=== PATIENT | female | born 1955 | race Caucasian/White ===

== ENCOUNTER → 2016-05-13 | Outpatient (CLI) | payer BC ==
[~2016-05-13] MED LIST: BACLOFEN PUMP INTRAD; CALC500C70 PO; CLB/200 PO; CLONIDINE PUMP INTRAD; CLOP1TAB15 PO; CYAN100020 PO; DOCU-94 PO; DTRSR/2 PO; ESZO2TAB3 PO; OMEG10007 PO; PREG100C PO; PROB1TAB16 PO; VTMD1000 PO
== END | disposition home or self-care (01) ==
LOC: C.PAPS 11:49
PROVIDERS: ATTEND Obstetrics & Gynecology
DX: Z01.419 Encounter for gynecological examination (general) (routine) without abnormal findings (principal)

== ENCOUNTER → 2016-05-15 | Outpatient (CLI) | payer BC ==
--- NOTE | 2016-05-15 13:42 | DIAGNOSTIC IMAGING REPORT ---
MRI OF THE LUMBAR SPINE WITHOUT IV CONTRAST CLINICAL HISTORY: Degenerative disc disease. Chronic low back pain. COMPARISON STUDY: MRI of the lumbar spine dated 10/12/2015. TECHNIQUE: MRI of the lumbar spine is performed utilizing various T1 and T2-weighted sequences in the axial and sagittal planes. IV contrast was not administered for this examination. The examination is modestly degraded by motion artifact as well as by lumbar dextrocurvature. FINDINGS: Lumbar spine: Vertebral body height is maintained throughout the lumbar spine. There is minimal anterolisthesis at L3-L4. Alignment is otherwise preserved. There is moderate lumbar dextrocurvature. Anterior osteophytes are seen throughout. There is straightening of the lumbar lordosis. The transverse and spinous processes are grossly intact. There is no evidence of spondylolysis. A hemangioma is suspected in the bodies of L4 and L5. Chronic endplate change is seen from L2 through L5. Significant endplate edema is identified at L3-L4 and L4-L5. Schmorl's nodes are noted in L4 and L5. Findings suggest previous right hemilaminectomy at L5. Intervertebral discs: There is degenerative disc desiccation and loss of height seen throughout the lumbar spine. This is severe at L2-L3, L3-L4, and L4-L5. Spinal cord: The visualized spinal cord is normal in morphology and signal intensity. The conus medullaris terminates at the level of L1. The nerve roots of the cauda equina are normal in morphology. L1-L2: There is minimal posterior disc bulge. In conjunction with hypertrophy of the ligamentum flavum and lipomatosis of epidural space, there is mild central canal stenosis with a minimum AP diameter of 6.5 mm. The neural foramina are patent. Facet arthropathy is of no consequence. L2-L3: There is minimal posterior disc bulge with annular fissure. The central canal appears clear. Facet arthropathy is of no consequence. The neural foramina are patent. L3-L4: There is a disc herniation slightly eccentric to the left with a superiorly extruded fragment which measures 1.5 cm. In conjunction with hypertrophy of the ligamentum flavum, this causes severe central canal stenosis with a minimum AP diameter of 4 mm. There is mild right and severe left-sided subarticular stenosis. This likely impinges on the exiting left L3 and the transiting left L4 nerve roots. Facet arthropathy is of no consequence. L4-L5: There is broad-based posterior disc bulge eccentric to the right. In conjunction with hypertrophy of the ligamentum flavum, this causes [id number] central canal stenosis with a minimum AP diameter of 6.5 mm. There is severe right and moderate left-sided subarticular stenosis. This impinges on the exiting right L4 and transiting right L5 nerve roots. Facet arthropathy and marginal osteophyte formation causes severe right neural foraminal stenosis. The left neural foramen appears clear. L5-S1: The central canal is clear. Facet arthropathy causes mild neural foraminal stenosis. Sacrum: Visualized sacrum is normal in morphology and signal intensity. Soft tissues: There is mild fatty atrophy of the paraspinous musculature. The visualized retroperitoneal structures are grossly unremarkable but incompletely assessed. The bladder wall appears trabeculated. IMPRESSION: 1. Advanced degenerative disc disease with significant degenerative endplate sclerosis seen at L3-L4 and L4-L5. 2. There is a disc herniation at L3-L4 with a large superiorly extruded fragment. Severe central canal stenosis is seen at this level. 3. There is pnmwinun-kq-qqlrua central canal stenosis at L4-L5. See discussion for detailed vabhm-yz-wmatr analysis. 4. Spinal scoliosis. Dictated: 05/15/2016 12:56 PM Transcribed: 05/15/2016 1:42 PM Vicky Electronically signed by: Destin Rodriguez M.D. 05/15/2016 2:00 PM Dictated Date/Time: 05/15/2016 12:56 PM
== END | disposition home or self-care (01) ==
LOC: C.MRIBC 10:53
PROVIDERS: ATTEND Orthopaedic Surgery
DX: M51.36 Other intervertebral disc degeneration, lumbar region (principal); M51.26 Other intervertebral disc displacement, lumbar region; M48.06 Spinal stenosis, lumbar region

== ENCOUNTER → 2016-07-08 | Outpatient (CLI) | payer BC ==
[~2016-07-08] MED LIST changes: +CALC-393 PO; +CELE100C PO; +CHOL100010 PO; +CYAN10005 PO; +DONE10TA12 PO
--- NOTE | 2016-07-08 16:55 | ECHOCARDIOGRAM REPORT ---
*NOTICE TO RECEIVING REPUBLICAN AGENCY This information is strictly Confidential and protected under [place] law. [place] law prohibits you from making any further disclosure of this information unless further disclosure is expressly permitted by the written consent of the person to whom it pertains or is authorized by law. A general authorization for the release of medical or other information is not sufficient for this purpose. Hospital accepts no responsibility if the information is made available to any other person, INCLUDING THE PATIENT. Interpretation Summary * Name: COCO HOLLY Study Date: 07/08/2016 12:59 PM BP: 142/88 mmHg * Patient Location: [facility] HR: 76 * : 1955 (M/d/yyyy) Gender: Female Height: 65 in * Age: 60 yrs Ethnicity: [place] Weight: 128 lb * Ordering Physician: Aaron Bowers * Referring Physician: Aaron Bowers * Performed By: Anna Baxter RDCS * * Reason For Study: CHF * BSA: 1.6 m2 * -- Conclusions -- * Left ventricular systolic function is normal. * No regional wall motion abnormalities noted. * Ejection Fraction = 60-65%. * Grade I diastolic dysfunction, (abnormal relaxation pattern). * No significant valvular pathology. Procedure Details * A complete two-dimensional transthoracic echocardiogram was performed (2D, M-mode, Doppler and color flow Doppler). Left Ventricle * The left ventricle is normal in size. * There is normal left ventricular wall thickness. * Ejection Fraction = 60-65%. * Left ventricular systolic function is normal. * No regional wall motion abnormalities noted. Right Ventricle * The right ventricle is grossly normal size. * The right ventricular systolic function is normal as assessed by tricuspid annular plane systolic excursion (TAPSE) (normal >1.5 cm). Atria * The left atrial size is normal. * Right atrial size is normal. * No ASD detected; PFO is not assessed. Mitral Valve * The mitral valve anatomy is normal. * There is no mitral valve stenosis. * Significant mitral regurgitation is absent. Tricuspid Valve * The tricuspid valve is not well visualized, but is grossly normal. * There is no tricuspid stenosis. * Significant tricuspid regurgitation is absent. Aortic Valve * The aortic valve is normal in structure and function. * No hemodynamically significant valvular aortic stenosis. * Trace aortic regurgitation. Pulmonic Valve * The pulmonary valve is not well seen, but the Doppler examination is normal without significant regurgitation or stenosis. Great Vessels * The aortic root and proximal ascending aorta are normal sized. * The pulmonary artery is not well visualized, but is probably normal size. Pericardium/Pleural * There is no pericardial effusion. Great Vessels * Normal inferior vena cava size and collapsability with sniff indicates a normal right atrial pressure of 3 mmHg Left Ventricular Diastolic Function * Grade I diastolic dysfunction, (abnormal relaxation pattern). MMode 2D Measurements and Calculations IVSd 1.2 cm IVSs 1.5 cm LVIDd 3.6 cm LVIDs 2.3 cm LVPWd 1.1 cm LVPWs 1.4 cm IVS/LVPW 1.1 FS 35.4 % EDV(Teich) 54.7 ml ESV(Teich) 18.7 ml EF(Teich) 65.8 % EDV(cubed) 47.0 ml ESV(cubed) 12.7 ml EF(cubed) 73.1 % % IVS thick 24.0 % % LVPW thick 28.6 % LV mass(C)d 132.8 grams LV mass(C)dI 81.1 grams/m\S\2 LV mass(C)s 108.9 grams LV mass(C)sI 66.6 grams/m\S\2 SV(Teich) 36.0 ml SI(Teich) 22.0 ml/m\S\2 SV(cubed) 34.3 ml SI(cubed) 21.0 ml/m\S\2 Ao root diam 3.1 cm Ao root area 7.6 cm\S\2 LA dimension 3.0 cm LA/Ao 0.97 LVAd ap4 25.5 cm\S\2 LVLd ap4 7.5 cm EDV(MOD-sp4) 72.4 ml LVAs ap4 13.7 cm\S\2 LVLs ap4 6.1 cm ESV(MOD-sp4) 26.5 ml EF(MOD-sp4) 63.4 % LVAd ap2 23.8 cm\S\2 LVLd ap2 7.3 cm EDV(MOD-sp2) 66.1 ml LVAs ap2 15.1 cm\S\2 LVLs ap2 6.5 cm ESV(MOD-sp2) 31.1 ml EF(MOD-sp2) 53.0 % SV(MOD-sp4) 45.9 ml SI(MOD-sp4) 28.0 ml/m\S\2 SV(MOD-sp2) 35.0 ml SI(MOD-sp2) 21.4 ml/m\S\2 Doppler Measurements and Calculations MV E max markel 81.5 cm/sec MV A max markel 102.8 cm/sec MV E/A 0.79 MV dec time 0.21 sec Ao V2 max 138.7 cm/sec Ao max PG 7.7 mmHg Ao max PG (full) 3.7 mmHg AI max markel 415.3 cm/sec AI max PG 69.0 mmHg AI dec slope 243.0 cm/sec\S\2 AI P1/2t 500.5 msec LV V1 max PG 4.0 mmHg LV V1 max 99.9 cm/sec
== END | disposition home or self-care (01) ==
LOC: C.CPL 12:51
PROVIDERS: ATTEND Family Medicine
DX: I50.9 Heart failure, unspecified (principal)

== ENCOUNTER → 2016-08-20 | Outpatient (CLI) | payer BC ==
[~2016-08-20] MED LIST changes: -CALC500C70 PO; -CLB/200 PO; -CYAN100020 PO; -ESZO2TAB3 PO; -OMEG10007 PO; -PROB1TAB16 PO; -VTMD1000 PO
== END | disposition home or self-care (01) ==
LOC: C.LABSPEC 08-19 10:52
PROVIDERS: ATTEND Family Medicine
DX: N39.0 Urinary tract infection, site not specified (principal)

== ENCOUNTER → 2016-09-25 | Outpatient (CLI) | payer BC ==
[~2016-09-25] MED LIST changes: -CALC-393 PO; -CELE100C PO; -CHOL100010 PO; -CYAN10005 PO; -DONE10TA12 PO
--- NOTE | 2016-09-26 12:19 | MAMMOGRAPHY REPORT ---
BILATERAL DIGITAL SCREENING MAMMOGRAM WITH CAD: 09/25/2016 CLINICAL HISTORY: Routine screening. Patient has no complaints. TECHNIQUE: Bilateral CC and MLO views were obtained. Current study was also evaluated with a Compute r Aided Detection (CAD) system. COMPARISON: Comparison is made to exams dated: 08/20/2015 mammogram, 08/16/2014 mammogram, 08/15/2013 ma mmogram, 08/12/2012 mammogram, 08/11/2011 mammogram, and 08/06/2010 mammogram - [facility] er. BREAST COMPOSITION: There are scattered areas of fibroglandular density in both breasts. FINDINGS: The right MLO view is suboptimal due to inability of the patient to adequately move and pos ition her right arm. An asymmetry in the lateral left breast appears similar to the 2015 and 2010 ma mmograms, suggesting benignity. No new suspicious mass, architectural distortion or cluster of micro calcifications is seen. IMPRESSION: ACR BI-RADS CATEGORY 1: NEGATIVE There is no mammographic evidence of malignancy. A 1 year screening mammogram is recommended. The pa tient will receive written notification of the results. Approximately 10% of breast cancers are not detected with mammography. A negative mammographic report should not delay biopsy if a clinically suggestive mass is present. Belén Brown M.D. ay/:09/25/2016 15:57:05 Motor Checker: La CALHOUN(R)(M), [facility] letter sent: Normal 1/2 BI-RADS Code: ACR BI-RADS Category 1: Negative
== END | disposition home or self-care (01) ==
LOC: C.MAMM 11:45
PROVIDERS: ATTEND Obstetrics & Gynecology
DX: Z12.31 Encounter for screening mammogram for malignant neoplasm of breast (principal)

== ENCOUNTER → 2016-10-10 | Outpatient (CLI) | payer BC ==
--- NOTE | 2016-10-10 12:24 | DIAGNOSTIC IMAGING REPORT ---
CHEST 2 VIEWS ROUTINE CLINICAL HISTORY: CLAVICLE Pain, r/o FX OF RT CLAVICLE COMPARISON STUDY: 10/30/2015 FINDINGS: Deformity distal right clavicle similar compared to the prior study. Several old right rib fractures. Lungs are considered clear. There are several calcified mediastinal and hilar nodes. IMPRESSION: No acute process. Chronic change. The above report was generated using voice recognition software. It may contain grammatical, syntax or spelling errors. Electronically signed by: Danielito Mosher M.D. 10/10/2016 12:22 PM Dictated Date/Time: 10/10/2016 12:21 PM
--- NOTE | 2016-10-10 12:27 | DIAGNOSTIC IMAGING REPORT ---
LEFT CLAVICLE 2 VIEWS CLINICAL HISTORY: Fall. Left clavicular pain. FINDINGS: 2 views of left clavicle are obtained. No prior studies are available for comparison at the time of dictation. The skeletal structures are osteopenic. No left clavicular fracture is seen. Mild productive change is seen at the acromioclavicular joint. The sternoclavicular joint appears preserved. The glenohumeral articulation is normal as imaged. The overlying soft tissues are within normal limits. Imaged left upper lobe lung parenchyma appears clear. There is atherosclerotic calcification of the thoracic aorta. IMPRESSION: There is no radiographic evidence of left clavicular fracture. Electronically signed by: Destin Rodriguez M.D. 10/10/2016 12:25 PM Dictated Date/Time: 10/10/2016 12:24 PM
--- NOTE | 2016-10-10 12:27 | DIAGNOSTIC IMAGING REPORT ---
RIGHT CLAVICLE CLINICAL HISTORY: 61 years-old Female presenting with CLAVICLE PAIN,R/O FX OF RT CLAVICLE Right. TECHNIQUE: Frontal and oblique views of the right clavicle were obtained. COMPARISON: 10/30/2015. FINDINGS: Interval healing of the displaced distal right clavicle fracture with osseous bridging. Osteopenia noted. No new fracture. Congruency of the acromioclavicular joint is not well assessed. Limited visualization of the thorax remarkable for atherosclerosis of aortic arch. Deformity of the right lateral fourth rib suggest chronic rib fracture, unchanged. IMPRESSION: Interval healing of the displaced distal right clavicle fracture. No convincing evidence of acute osseous injury. Acromioclavicular joint not well assessed. Osteopenia. Electronically signed by: Jenaro Leroy M.D. 10/10/2016 12:26 PM Dictated Date/Time: 10/10/2016 12:23 PM
--- NOTE | 2016-10-10 15:48 | DIAGNOSTIC IMAGING REPORT ---
RIGHT SHOULDER MIN 2 VIEWS ROUTINE CLINICAL HISTORY: RIGHT SHOULDER PAIN Right pain COMPARISON: None. DISCUSSION: Partial anterior subluxation right shoulder. Osteoporosis. Deformity distal clavicle possibly secondary to old trauma. Old fractures of several upper right ribs. Upper right lung is clear. There is no evidence for soft tissue swelling. IMPRESSION: Considerable degenerative change. Osteoporosis. Partial anterior subluxation of the right humeral head in relation to the glenoid. Deformity distal clavicle as well as several upper right ribs presumably secondary to old trauma. The above report was generated using voice recognition software. It may contain grammatical, syntax or spelling errors. Electronically signed by: Danielito Mosher M.D. 10/10/2016 3:47 PM Dictated Date/Time: 10/10/2016 3:45 PM
== END | disposition home or self-care (01) ==
LOC: C.RADBC 11:32
PROVIDERS: ATTEND Family Medicine
DX: M25.511 Pain in right shoulder (principal); M81.0 Age-related osteoporosis without current pathological fracture; S42.001A Fracture of unspecified part of right clavicle, initial encounter for closed fracture; W19.XXXA Unspecified fall, initial encounter

== ENCOUNTER → 2017-02-02 | Day surgery (SDC) | payer BC ==
[2016-12-23 10:46] VITALS: Ht 166.4 cm; Wt 59.1 kg
[~2017-02-02] VITALS: Ht 166.4 cm; Wt 59.1 kg
[~2017-02-02] MED LIST changes: +CALC-393 PO; +CELE100C PO; +CHOL100010 PO; +CYAN10005 PO; -DOCU-94 PO; +DONE10TA12 PO; +LIDOCAINE HCL 2% 2 ML VIAL (20MG/ML) ONE; +MIDAZOLAM HCL 1 MG/ML 2ML VIAL ONE; +PROPOFOL IV EMULSION 10 MG/ML 20 ML VIAL IV ONE
--- NOTE | 2017-02-02 09:28 | Endo History and Physical ---
History & Physical Date of Service: Feb 02, 2017. Chief Complaint: Screening Referring Physician: Dr. Monica Knapp History of Present Illness 61 yo CF who presents for screening colonoscopy. Past Medical History Hypertension, CVA/TIA Past Surgical History Hx Cardiac Surgery: No Hx Internal Defibrillator: No Hx Pacemaker: No Hx Abdominal Surgery: Yes (PUMP INSERTION AND REPLACEMENTS (Q7 YEARS)) Hx of Implantable Prosthesis: No Hx Post-Op Nausea and Vomiting: No Hx Cancer Surgery: No Hx Thoracic Surgery: No Hx Orthopedic: Yes (BACK SURGERY) Hx Urinary Tract Surgery: No Family History Esophogeal [place] Social History Smoking Status: Never Smoker Hx Substance Use: No Hx Alcohol Use: No Allergies Coded Allergies: Cephalexin (Verified Allergy, Unknown, ANAPHYLAXIS, 12/23/16) Penicillins (Verified Adverse Reaction, Mild, nausea, 12/23/16) Current Medications Reported Home Medications Medications Dose Route/Sig Max Daily Dose Days Date Category Calcium (Calcium Carbonate) 600 Mg Tab 1 Tab PO QAM 12/23/16 Reported Vitamin B-12 (Cyanocobalamin) 1,000 Mcg Tab 1,000 Mcg PO QAM 12/23/16 Reported Vitamin D (Cholecalciferol) 1,000 Unit Tab 1 Tab PO QAM 12/23/16 Reported Celebrex (Celecoxib) 100 Mg Cap 100 Mg PO QAM 12/23/16 Reported Aricept (Donepezil Hydrochloride) 10 Mg Tab 10 Mg PO QPM 12/23/16 Reported Detrol LA (Tolterodine Tartrate) 2 Mg Capcr 1 Cap PO QPM 05/15/16 Reported [Clonidine Pump] 14.48 Mcg INTRAD UD 10/17/15 Reported [Baclofen Pump] 144.8 Mcg INTRAD UD 03/17/15 Reported Lyrica (Pregabalin) 100 Mg Cap 100 Mg PO QID 05/10/11 Reported Plavix (Clopidogrel Bisulfate) 75 Mg Tab 75 Mg PO QPM 06/01/06 Reported Vital Signs Weight (Kilograms): 59.09 Height (Feet): 5 Height (Inches): 5.5 Date Time Temp Pulse Resp B/P (MAP) Pulse Ox O2 Delivery O2 Flow Rate FiO2 02/02/17 09:01 37.1 76 20 139/78 (98) 97 Room Air Physical Exam General Appearance: WD/WN, no apparent distress Respiratory/Chest: Auscultation: breath sounds normal Cardiovascular: Heart Auscultation: RRR Abdomen: Bowel Sounds: normal Inspection & Palpation: soft, non-distended, no tenderness, guarding & rebound Assessment and Plan Assessment: 61 yo CF who presents for screening colonoscopy. Plan: Proceed with colonoscopy.
--- NOTE | 2017-02-02 10:00 | GI REPORT ---
Procedure Date: 02/02/2017 9:36 AM Procedure: Colonoscopy Indications: Screening for colorectal malignant neoplasm Medicines: Monitored Anesthesia Care Complications: No immediate complications. Estimated Blood Loss: Estimated blood loss: none. Procedure: Pre-Anesthesia Assessment: - Prior to the procedure, a History and Physical was performed, and patient medications and allergies were reviewed. The patient's tolerance of previous anesthesia was also reviewed. The risks and benefits of the procedure and the sedation options and risks were discussed with the patient. All questions were answered, and informed consent was obtained. Prior Anticoagulants: The patient has taken Plavix (clopidogrel), last dose was 10 days prior to procedure. ASA Grade Assessment: III - A patient with severe systemic disease. After reviewing the risks and benefits, the patient was deemed in satisfactory condition to undergo the procedure. After I obtained informed consent, the scope was passed under direct vision. Throughout the procedure, the patient's blood pressure, pulse, and oxygen saturations were monitored continuously. The On-site loaner was introduced through the anus and advanced to the terminal ileum. The colonoscopy was performed without difficulty. The patient tolerated the procedure well. The quality of the bowel preparation was good. The terminal ileum, ileocecal valve, appendiceal orifice, and rectum were photographed. Findings: A 5 mm polyp was found in the ascending colon. The polyp was sessile. The polyp was removed with a hot snare. Resection and retrieval were complete. Multiple small-mouthed diverticula were found in the sigmoid colon. Non-bleeding internal hemorrhoids were found during retroflexion. The hemorrhoids were small. Impression: - One 5 mm polyp in the ascending colon, removed with a hot snare. Resected and retrieved. - Diverticulosis in the sigmoid colon. - Non-bleeding internal hemorrhoids. Recommendation: - Resume previous diet. - Continue present medications. - Repeat colonoscopy for surveillance based on pathology results. - Return to primary care physician as previously scheduled. Joel Motta, DO 02/02/2017 9:59:30 AM This report has been signed electronically. Note Initiated On: 02/02/2017 9:36 AM I attest to the content of the Intraoperative Record and orders documented therein, exceptions below
--- NOTE | 2017-02-02 10:00 | Discharge Instructions ---
Endoscopy Patient Instructions Date / Procedure(s) Performed Feb 02, 2017. Colonoscopy Allergy Information Coded Allergies: Cephalexin (Verified Allergy, Unknown, ANAPHYLAXIS, 12/23/16) Penicillins (Verified Adverse Reaction, Mild, nausea, 12/23/16) Discharge Date / Findings Feb 02, 2017. Colon polyp Diverticulosis Internal hemorrhoids Medication Instructions Stopped Medication(s): Patient stopped plavix 10 days ago. OK to resume all medications today as prescribed Reported Home Medications Medications Dose Route/Sig Max Daily Dose Days Date Category Calcium (Calcium Carbonate) 600 Mg Tab 1 Tab PO QAM 12/23/16 Reported Vitamin B-12 (Cyanocobalamin) 1,000 Mcg Tab 1,000 Mcg PO QAM 12/23/16 Reported Vitamin D (Cholecalciferol) 1,000 Unit Tab 1 Tab PO QAM 12/23/16 Reported Celebrex (Celecoxib) 100 Mg Cap 100 Mg PO QAM 12/23/16 Reported Aricept (Donepezil Hydrochloride) 10 Mg Tab 10 Mg PO QPM 12/23/16 Reported Detrol LA (Tolterodine Tartrate) 2 Mg Capcr 1 Cap PO QPM 05/15/16 Reported [Clonidine Pump] 14.48 Mcg INTRAD UD 10/17/15 Reported [Baclofen Pump] 144.8 Mcg INTRAD UD 03/17/15 Reported Lyrica (Pregabalin) 100 Mg Cap 100 Mg PO QID 05/10/11 Reported Plavix (Clopidogrel Bisulfate) 75 Mg Tab 75 Mg PO QPM 06/01/06 Reported Provider Instructions Activity Restrictions - No exercising or heavy lifting for 24 hours. - Do not drink alcohol the day of the procedure. - Do not drive a car or operate machinery until the day after the procedure. - Do not make any important decisions or sign important papers in 24 hours after the procedure. Following Day: - Return to full activity which may include returning to work/school. Diet Start your diet with liquids and light foods (jello, soup, juice, toast). Then eat your usual diet if not nauseated. Treatment For Common After Affects For mild abdominal pain, bloating, or excessive gas: - Rest - Eat lightly - Lie on right side Follow-Up Information Follow-up with Dr. Monica Knapp as scheduled Anesthesia Information What You Should Know You have had a procedure that required some medicine to reduce anxiety and discomfort. This treatment is called moderate sedation. After receiving the treatment, you may be sleepy, but you will be able to breathe on your own. The effects of the treatment may last for several hours. Follow these instructions along with Activity/Diet recommendations noted above: * Do NOT do anything where dizziness or clumsiness would be dangerous. * Rest quietly at home today, then you can be up and about tomorrow. * Have a responsible person stay with you the rest of today. * You may have had an I.V. today. If so, you may take the dressing off later today. Recommendations Call your doctor if: * Trouble breathing * Continuous vomiting for more than 24 hours * Temperature above 101 degrees * Severe abdominal pain or bloating * Pain not relieved by pain medicine ordered * There is increased drainage or redness from any incision * A large amount of rectal bleeding greater than 2-3 tablespoons. (If you had a polyp/s removed or have hemorrhoids, a small amount of blood - from the rectum is to be expected.) * You have any unanswered questions or concerns. IN THE EVENT OF A SERIOUS EMERGENCY, GO TO THE NEAREST EMERGENCY ROOM Your discharge instructions were prepared by provider Joel Motta. Patient Instructions Signature Page Denise Tamayo Patient (or Guardian) Signature/Date: I have read and understand the instructions given to me by my caregivers. Caregiver/RN/Doctor Signature/Date: The above-named patient and/or guardian has received patient instructions on this date. + Original Patient Signature Page (only) stays with chart. Please make copy for patient.
--- NOTE | 2017-02-02 10:17 | Anesthesiology Progress Note ---
Anesthesia Post Op Note Date & Time Feb 02, 2017 at 10:17 Vital Signs Pain Intensity: 0 Vital Signs Past 12 Hours Date Time Temp Pulse Resp B/P (MAP) Pulse Ox O2 Delivery O2 Flow Rate FiO2 02/02/17 10:00 67 12 122/72 (89) 97 Room Air 02/02/17 09:01 37.1 76 20 139/78 (98) 97 Room Air Notes Mental Status: alert / awake / arousable, participated in evaluation Pt Amnestic to Procedure: Yes Nausea / Vomiting: adequately controlled Pain: adequately controlled Airway Patency, RR, SpO2: stable & adequate BP & HR: stable & adequate Hydration State: stable & adequate Anesthetic Complications: no major complications apparent
[2017-02-02 10:35] VITALS: BP 147/82; PULSE 73; O2SAT 100
== END | disposition home or self-care (01) ==
LOC: C.GI 08:31
PROVIDERS: ATTEND Internal Medicine
DX: Z12.11 Encounter for screening for malignant neoplasm of colon (principal); D12.2 Benign neoplasm of ascending colon; K57.30 Diverticulosis of large intestine without perforation or abscess without bleeding; K64.8 Other hemorrhoids; I10 Essential (primary) hypertension; Z86.73 Personal history of transient ischemic attack (TIA), and cerebral infarction without residual deficits; Z80.0 Family history of malignant neoplasm of digestive organs; Z79.02 Long term (current) use of antithrombotics/antiplatelets; Z79.899 Other long term (current) drug therapy

== ENCOUNTER → 2017-05-18 | Outpatient (CLI) | payer BC ==
[~2017-05-18] MED LIST changes: -CALC-393 PO; -LIDOCAINE HCL 2% 2 ML VIAL (20MG/ML) ONE; -MIDAZOLAM HCL 1 MG/ML 2ML VIAL ONE; +OMEG10007 PO; -PROPOFOL IV EMULSION 10 MG/ML 20 ML VIAL IV ONE
== END | disposition home or self-care (01) ==
LOC: C.PAPS 12:33
PROVIDERS: ATTEND Obstetrics & Gynecology
DX: N95.8 Other specified menopausal and perimenopausal disorders (principal)

== ENCOUNTER → 2017-05-19 | Outpatient (CLI) | payer BC ==
[2017-05-19 17:02] LABS: BASO % 0.7 %; BASO ABS # 0.04 K/uL (0-0.2); EOS % 3.1 %; EOS ABS # 0.18 K/uL (0-0.5); HEMATOCRIT 38.1 % (37-47); HEMOGLOBIN 13.2 g/dL (12.0-16.0); LYMPH % 39.3 %; LYMPH ABS # 2.28 K/uL (1.2-3.4); MEAN CELL VOLUME 86.6 fL (80-100); MEAN CORPUSCULAR HGB CONC 34.6 g/dl (32-36); MEAN PLATELET VOLUME 10.2 fL (7.4-10.4); MONO % 12.2 %; MONO ABS # 0.71 K/uL (0.11-0.59); NEUT % 44.7 %; NEUT ABS # 2.59 K/uL (1.4-6.5); PLATELET COUNT 391 K/uL (130-400); RED CELL DISTRIBUTION WIDTH SD 44.2 fL (36.4-46.3)
[2017-05-19 17:27] LABS: ALBUMIN 4.1 gm/dl (3.4-5.0); ALT/SGPT 28 U/L (12-78); AST/SGOT 22 U/L (15-37); BLOOD UREA NITROGEN 10 mg/dl (7-18); CALCIUM 8.9 mg/dl (8.5-10.1); CARBON DIOXIDE 27 mmol/L (21-32); CHOLESTEROL 217 mg/dl (0-200); CREATININE 0.62 mg/dl (0.60-1.20); GLUCOSE 81 mg/dl (70-99); POTASSIUM 3.7 mmol/L (3.5-5.1); SODIUM 129 mmol/L (136-145); URIC ACID 4.4 mg/dl (2.6-7.2)
[2017-05-19 17:36] LABS: ALKALINE PHOSPHATASE 79 U/L (45-117); LDL CHOLESTEROL CALCULATED 98 mg/dl; TRANSFERRIN 298 mg/dl (200-360)
[2017-05-20 06:08] LABS: HEMOGLOBIN A1C 5.5 % (4.5-5.6)
== END | disposition home or self-care (01) ==
LOC: C.LABBC 15:18
PROVIDERS: ATTEND Family Medicine
DX: R73.09 Other abnormal glucose (principal); E55.9 Vitamin D deficiency, unspecified; D51.9 Vitamin B12 deficiency anemia, unspecified; E78.9 Disorder of lipoprotein metabolism, unspecified; R53.83 Other fatigue

== ENCOUNTER → 2017-05-27 | Outpatient (CLI) | payer BC ==
--- NOTE | 2017-05-27 10:31 | DIAGNOSTIC IMAGING REPORT ---
ULTRASOUND OF THE CAROTID ARTERIES CLINICAL HISTORY: CAROTID ARTERY DISEASE COMPARISON STUDY: 08/06/2012 TECHNIQUE: Real-time, grayscale, and color Doppler sonography of the carotid arteries was performed. Imaging reviewed in the transverse and longitudinal planes. NASCET criteria was utilized for stenosis calcification. FINDINGS: There is mild atherosclerotic plaque present on the right. The left internal carotid artery appears occluded. This finding was present on the preceding study. The peak systolic velocity within the right internal carotid artery is 73 cm/sec. The systolic velocity ratio of right internal to common carotid artery is 1.4. The peak systolic velocity within the left internal carotid artery is 0 cm/sec. The systolic velocity ratio left internal to common carotid artery is 0. Antegrade flow is seen in the vertebral arteries. The external carotid arteries are patent. Blood pressure in the right arm measured 137 mm/Hg. Blood pressure in the left arm measured 137 mm/Hg. IMPRESSION: 1. Occluded left internal carotid artery 2. No evidence of hemodynamically significant right internal carotid artery stenosis Electronically signed by: Guzman Smith M.D. 05/27/2017 10:30 AM Dictated Date/Time: 05/27/2017 10:28 AM
== END | disposition home or self-care (01) ==
LOC: C.ULTRBC 09:32
PROVIDERS: ATTEND Family Medicine
DX: I65.23 Occlusion and stenosis of bilateral carotid arteries (principal)

== ENCOUNTER → 2017-09-28 | Outpatient (CLI) | payer BC ==
--- NOTE | 2017-09-29 07:32 | MAMMOGRAPHY REPORT ---
BILATERAL DIGITAL SCREENING MAMMOGRAM WITH CAD: 09/28/2017 CLINICAL HISTORY: Routine screening. Patient has no complaints. TECHNIQUE: The study was acquired using full field digital technology and interpreted from soft copy. Current study was also evaluated with a Computer Aided Detection (CAD) system. COMPARISON: Comparison is made to exams dated: 09/25/2016 mammogram, 08/20/2015 mammogram, 08/16/2014 m ammogram, 08/15/2013 mammogram, 08/12/2012 mammogram, and 08/11/2011 mammogram - [facility] er. BREAST COMPOSITION: There are scattered areas of fibroglandular density in both breasts. FINDINGS: The exam is suboptimal due to inability of the patient to adequately position for the exam given prior stroke, despite assistance from 2 cardiopulmonary technologist during the exam. Within this limitation, no new suspicious mass, architectural distortion or cluster of microcalcifications is see n. IMPRESSION: ACR BI-RADS CATEGORY 1: NEGATIVE There is no mammographic evidence of malignancy, within the limitations of the exam. A 1 year screeni ng mammogram is recommended.(09/29/2018) The patient will receive written notification of the result s. Some breast cancers are not detected with mammography. A negative mammographic report should not zeus y biopsy if a clinically suggestive mass is present. Belén Brown M.D. ay/:09/28/2017 12:41:26 Export Sales Manager: RT Chaparro(Sherron)(Elvira)(BD), [facility] letter sent: Normal 1/2 BI-RADS Code: ACR BI-RADS Category 1: Negative
== END | disposition home or self-care (01) ==
LOC: C.MAMM 12:09
PROVIDERS: ATTEND Obstetrics & Gynecology
DX: Z12.31 Encounter for screening mammogram for malignant neoplasm of breast (principal)

== ENCOUNTER → 2017-10-12 | Outpatient (CLI) | payer BC ==
[2017-10-12 17:06] LABS: BASO % 0.8 %; BASO ABS # 0.04 K/uL (0-0.2); HEMATOCRIT 38.1 % (37-47); HEMOGLOBIN 12.8 g/dL (12.0-16.0); IG# 0.01 K/uL (0.00-0.02); LYMPH % 40.3 %; MEAN CELL VOLUME 90.7 fL (80-100); MEAN CORPUSCULAR HEMOGLOBIN 30.5 pg (25-34); MEAN CORPUSCULAR HGB CONC 33.6 g/dl (32-36); MONO % 14.9 %; MONO ABS # 0.74 K/uL (0.11-0.59); NEUT % 39.8 %; NEUT ABS # 1.97 K/uL (1.4-6.5); PLATELET COUNT 352 K/uL (130-400); RED CELL DISTRIBUTION WIDTH CV 13.2 % (11.5-14.5); RED CELL DISTRIBUTION WIDTH SD 43.6 fL (36.4-46.3); WHITE BLOOD COUNT 4.96 K/uL (4.8-10.8)
[2017-10-12 17:29] LABS: ALBUMIN 3.7 gm/dl (3.4-5.0); ALKALINE PHOSPHATASE 77 U/L (45-117); ALT/SGPT 28 U/L (12-78); AST/SGOT 24 U/L (15-37); BLOOD UREA NITROGEN 10 mg/dl (7-18); CALCIUM 8.8 mg/dl (8.5-10.1); CARBON DIOXIDE 27 mmol/L (21-32); CHOLESTEROL 171 mg/dl (0-200); CREATININE 0.56 mg/dl (0.60-1.20); GLUCOSE 76 mg/dl (70-99); LDL CHOLESTEROL CALCULATED 70 mg/dl; POTASSIUM 4.1 mmol/L (3.5-5.1); SODIUM 132 mmol/L (136-145); TOTAL PROTEIN 6.7 gm/dl (6.4-8.2); TRANSFERRIN 272 mg/dl (200-360); URIC ACID 4.6 mg/dl (2.6-7.2)
[2017-10-13 06:19] LABS: HEMOGLOBIN A1C 5.5 % (4.5-5.6)
== END | disposition home or self-care (01) ==
LOC: C.LABBC 12:57
PROVIDERS: ATTEND Family Medicine
DX: R73.09 Other abnormal glucose (principal); E55.9 Vitamin D deficiency, unspecified; D51.9 Vitamin B12 deficiency anemia, unspecified; E78.9 Disorder of lipoprotein metabolism, unspecified; R53.83 Other fatigue

== ENCOUNTER 2021-08-04 10:47 | Inpatient (IN) ==
[2021-08-04] MEDS ORDERED: MoRPHine SULFATE 2 MG/ML CARP IV PRN ×2 (10:59→16:12)
[2021-08-04] MEDS ORDERED: MoRPHine SULFATE 4 MG/ML 1 ML CARP\\VIAL IV PRN (10:59)
--- NOTE | 2021-08-04 11:02 | Emergency Department Note ---
Impression & Plan Closed femur fracture, Fall, Acute hypokalemia, Acute hyponatremia ED Provider Note NAME: COCO HOLLY AGE: 65 SEX: F : 1955 ARRIVES VIA: Ambulance INFORMANT: Patient ED PROVIDER(S): Mauricio Wong DO CHIEF COMPLAINT: right hip pain HPI: Patient is a 65-year-old female with past medical history of a right-sided stroke who presents to the ER for a fall. She was opening the door to bring a water to her dog. She lost her balance and fell onto her right hip. She did not hit her head or neck. She notes that she has been off her Plavix as she is set to have surgery on Thursday. She denies any head pain or neck pain. No chest pain or belly pain. No shortness of breath, nausea, vomiting, or diarrhea. No dizziness or lightheadedness. Pain is focal in the right hip. Its 10 out of 10. Worse with movement. Improves with rest. ROS: See above HPI for pertinent positives & negatives. A total of 10 systems reviewed and were otherwise negative. PAST MEDICAL HISTORY:See Below PAST SURGICAL HISTORY:See Below FAMILY HISTORY:See Below SOCIAL HISTORY:See Below HOME MEDICATIONS:See Below ALLERGIES:See Below VITALS:See Below PHYSICAL EXAMINATION: GENERAL: alert, well appearing, well nourished, no distress, non-toxic HEAD: normal cephalic, atraumatic EYE EXAM: normal conjunctiva, PERRL and EOM's grossly intact OROPHARYNX: no exudate, no erythema, lips, buccal mucosa, and tongue normal and mucous membranes are moist NECK: supple, no nuchal rigidity, no adenopathy, non-tender CHEST: stable to compression anteriorly and posteriorly LUNGS: clear to auscultation. Normal chest wall mechanics HEART: no murmurs, S1 normal and S2 normal ABDOMEN: abdomen soft, non-tender, normo-active bowel sounds, no masses, no rebound or guarding. PELVIS: stable to compression anteriorly and posteriorly BACK: Back is symmetrical on inspection and there is no deformity, no midline tenderness, no CVA tenderness. UPPER EXTREMITIES: full active and passive range of motion of all joints without tenderness to palpation LOWER EXTREMITIES: Flexion-extension left hip knee ankle and EHL intact. Obvious deformity of the right hip with the leg externally rotated and shortened. No tenderness throughout the distal femur knee tib-fib or ankle. DPs 2 out of 4. Gross station intact. NEURO EXAM: Normal sensorium, cranial nerves II-XII grossly intact, normal speech, no gross weakness of arms, no gross weakness of legs. GCS: 15. MEDICAL DECISION MAKING: Patient is a 65-year-old female who presents ER following mechanical fall. She did not hit her head or neck. IV was established blood work was obtained. She denies any new weakness or numbness. Does have her old right-sided deficit from her stroke. Labs show no significant leukocytosis or anemia. INR unremarkable. BMP with mild hypokalemia and mild hyponatremia. LFTs bilirubin was unremarkable. COVID was negative. X-rays of the right hip show right hip/femur fracture. Patient was given IV morphine. She is updated bedside. Discussed with hospitalist for further evaluation. She follows with [facility] as an outpatient and discussed with their group and they will follow the patient and keep her n.p.o. for the OR. Triage Nursing notes reviewed. Limited review of prior medical records performed Vital Signs: reviewed and remarkable for no significant abnormalities Differential diagnosis: Differential diagnoses include major intracranial, cervical, spinal, thoracic, abdominal, pelvic and neurologic injury. Fracture, contusion, sprain, strain, laceration, abrasions included as well. ER treatment provided: See below Diagnostics interpreted by me: ECG: Sinus rhythm rate of 67 Normal axis No PVCs Poor baseline QTC 435 Cardiac Monitoring: An order was placed for continuous cardiac monitoring. The monitor shows a rate of 70 with sinus rhythm. Laboratory studies: As stated above and show below. Imaging studies: X-rays of the pelvis and right hip show right femur fracture Consultation(s): Discussed with Dr. Sharpe for evaluation from orthopedic surgery Discussed with Dr. 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) Hemiplegia Right side > wears AFO brace on RLE, no control of right arm History of CVA (cerebrovascular accident) 1998 large left MCA territory in setting of occluded left carotid potentially related to oral contraception at that time > chronic spastic right hemiparesis, flaccid upper limb and mild to moderate expressive aphasia > on plavix > follows with [place] [facility] History of depression 1998 per pt Hypertension controlled, stable per pt Left carotid artery occlusion Memory problem Osteoarthritis Osteoporosis 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) Vasovagal syncope if not laying flat during blood draws Surgical History Family history of reaction to anesthesia Mother: slow to wake History of back surgery Lumbar fusion x2 History of colonoscopy History of gynecologic surgery Labial "removal" History of tonsillectomy History of tooth extraction Presence of intrathecal pump Family History Father Cancer Family history of esophageal cancer Other No pertinent family history Social History Smoking Status: Former smoker Second Hand Exposure: Yes (IN THE PAST); Hx Alcohol Use: Yes Alcohol type: beer Preferred Language: Nepalese 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 Beliefs That Will Affect Care: None Current Living Situation: Alone current occupational status: retired Feels Safe at Home: Yes Assistive Devices: Brace/Splint/Immobilizer and Glasses Allergies Allergies Allergy/AdvReac Type Severity Reaction Status Date / Time cephalexin Allergy Severe Anaphylaxis Verified 08/04/21 12:35 Penicillins AdvReac Mild nausea Verified 08/04/21 12:35 Home Meds Home Medications Medication Instructions Recorded Confirmed clopidogrel 75 mg tablet 75 mg PO HS 01/04/18 08/04/21 memantine 10 mg tablet 10 mg PO BID 01/04/18 08/04/21 omega 5-uiw-svw-fish oil 1,000 mg 2,000 mg PO QAM 01/04/18 08/04/21 (120 mg-180 mg) capsule (Fish Oil) celecoxib 200 mg capsule 200 mg PO QAM 07/14/18 08/04/21 donepezil 10 mg tablet (Aricept) 10 mg PO HS 08/01/20 08/04/21 pyridoxine (vitamin B6) 50 mg 50 mg PO WK cap 08/01/20 08/04/21 capsule (Vitamin B-6) cyanocobalamin (vitamin B-12) 1,000 mcg PO QAM tab 07/23/21 08/04/21 1,000 mcg tablet (Vitamin B-12) baclofen 0 mcg CONTINUOUS INTRATHECAL 08/04/21 08/04/21 INFUSION UD Results & Data (ED) Vital Signs Vital Signs - 24 hr 08/04/21 11:28 08/04/21 11:37 08/04/21 12:03 Temperature 36.9 C Temperature Source Oral Pulse Rate 67 Pulse Rate [Apical] 66 66 Pulse Rhythm Regular Respiratory Rate 18 14 16 Respiratory Effort / Characteristics Non-Labored Spontaneous Respiratory Depth Normal Respiratory Pattern Regular Blood Pressure 153/76 H Blood Pressure [Left Arm] 139/77 Blood Pressure Mean 101 Blood Pressure Mean [Left Arm] 97 Blood Pressure Position Semi-fowlers Blood Pressure Position [Left Arm] Semi-fowlers Pulse Oximetry 97 96 Oxygen Delivery Method Room Air Room Air Sepsis Recent Fever Within 48 Hours No Sepsis New/Unexplained Change in Mental Status No Sepsis Action Taken by Nursing No Action Required 08/04/21 12:23 Temperature Temperature Source Pulse Rate Pulse Rate [Apical] 66 Pulse Rhythm Respiratory Rate 16 Respiratory Effort / Characteristics Respiratory Depth Respiratory Pattern Blood Pressure Blood Pressure [Left Arm] Blood Pressure Mean Blood Pressure Mean [Left Arm] Blood Pressure Position Blood Pressure Position [Left Arm] Pulse Oximetry 96 Oxygen Delivery Method Room Air Sepsis Recent Fever Within 48 Hours Sepsis New/Unexplained Change in Mental Status Sepsis Action Taken by Nursing Laboratory Data Result diagrams: 08/04/21 11:08 08/04/21 11:08 Lab Results 08/04/21 08/04/21 08/04/21 Range/Units 11:08 11:08 11:08 WBC 5.23 (4.8-10.8) K/uL RBC 4.32 (4.2-5.4) M/uL Hgb 13.2 (12.0-16.0) g/dL Hct 39.1 (37-47) % MCV 90.5 (80-100) fL MCH 30.6 (25-34) pg MCHC 33.8 (32-36) g/dL RDW Std Deviation 42.9 (36.4-46.3) fL RDW Coeff of Tera 12.9 (11.5-14.5) % Plt Count 411 H (130-400) K/uL MPV 9.9 (7.4-10.4) fL Immature Gran % (Auto) 0.2 % Neut % (Auto) 46.7 % Lymph % (Auto) 39.2 % [place] % (Auto) 12.2 % Eos % (Auto) 1.3 % Baso % (Auto) 0.4 % Neut # (Auto) 2.44 (1.4-6.5) K/uL Lymph # (Auto) 2.05 (1.2-3.4) K/uL [place] # (Auto) 0.64 H (0.11-0.59) K/uL Eos # (Auto) 0.07 (0-0.5) K/uL Baso # (Auto) 0.02 (0-0.2) K/uL Immature Gran # (Auto) 0.01 (0.00-0.02) K/uL PT 10.9 (9.0-12.0) Seconds INR 1.0 (0.9-1.1) APTT 23.2 (21.0-31.0) Seconds PTT Ratio 0.8 Sodium 131 L (136-145) mmol/L Potassium 3.4 L (3.5-5.1) mmol/L Chloride 98 (98-107) mmol/L Carbon Dioxide 25 (21-32) mmol/L Anion Gap 8 (3-11) BUN 7 (6-23) mg/dl Creatinine 0.63 (0.6-1.2) mg/dl Est Cr Clr Drug Dosing 76.9 ml/min Est GFR ( Amer) 109.1 ml/min Est GFR (Non-Af Amer) 94.1 ml/min BUN/Creatinine Ratio 11.1 (10-20) Glucose 127 H (70-99(Fasting)) mg/dl Calcium 8.9 (8.5-10.1) mg/dl Total Bilirubin 0.6 (0.2-1.0) mg/dl AST 23 (13-39) U/L ALT 16 (7-52) U/L Alkaline Phosphatase 46 (34-104) U/L Total Protein 7.0 (6.0-8.3) gm/dl Albumin 4.5 (3.4-5.0) gm/dl Globulin 2.5 (2.5-4.0) gm/dl Albumin/Globulin Ratio 1.8 (0.9-2) SARS-CoV-2, RNA, NAAT (NEGATIVE) 08/04/21 Range/Units 11:15 WBC (4.8-10.8) K/uL RBC (4.2-5.4) M/uL Hgb (12.0-16.0) g/dL Hct (37-47) % MCV (80-100) fL MCH (25-34) pg MCHC (32-36) g/dL RDW Std Deviation (36.4-46.3) fL RDW Coeff of Tera (11.5-14.5) % Plt Count (130-400) K/uL MPV (7.4-10.4) fL Immature Gran % (Auto) % Neut % (Auto) % Lymph % (Auto) % [place] % (Auto) % Eos % (Auto) % Baso % (Auto) % Neut # (Auto) (1.4-6.5) K/uL Lymph # (Auto) (1.2-3.4) K/uL [place] # (Auto) (0.11-0.59) K/uL Eos # (Auto) (0-0.5) K/uL Baso # (Auto) (0-0.2) K/uL Immature Gran # (Auto) (0.00-0.02) K/uL PT (9.0-12.0) Seconds INR (0.9-1.1) APTT (21.0-31.0) Seconds PTT Ratio Sodium (136-145) mmol/L Potassium (3.5-5.1) mmol/L Chloride (98-107) mmol/L Carbon Dioxide (21-32) mmol/L Anion Gap (3-11) BUN (6-23) mg/dl Creatinine (0.6-1.2) mg/dl Est Cr Clr Drug Dosing ml/min Est GFR ( Amer) ml/min Est GFR (Non-Af Amer) ml/min BUN/Creatinine Ratio (10-20) Glucose (70-99(Fasting)) mg/dl Calcium (8.5-10.1) mg/dl Total Bilirubin (0.2-1.0) mg/dl AST (13-39) U/L ALT (7-52) U/L Alkaline Phosphatase (34-104) U/L Total Protein (6.0-8.3) gm/dl Albumin (3.4-5.0) gm/dl Globulin (2.5-4.0) gm/dl Albumin/Globulin Ratio (0.9-2) SARS-CoV-2, RNA, NAAT NEGATIVE (NEGATIVE) Administered Medications Morphine Sulfate (Morphine Sulfate 4 Mg/Ml 1 Ml Carp\\Vial) 4 mg IV Q1H PRN PRN Reason: Severe Pain (Rating 7,8,9,10) Stop: 08/18/21 10:58 Last Admin: 08/04/21 11:14 Dose: 4 mg Documented by: [id number] Discontinued Medications Morphine Sulfate (Morphine Sulfate 10 Mg/Ml Carp/Vial) 6 mg IV NOW STA Stop: 08/04/21 12:04 Last Admin: 08/04/21 12:08 Dose: 6 mg Documented by: [id number] Imaging Data Radiologist's Impression: Chest X-Ray 08/04/21 10:59 SINGLE VIEW CHEST CLINICAL HISTORY: Fall. Right hip fracture. FINDINGS: An AP, portable, semierect chest radiograph is compared to study dated 07/15/2021 and correlated with chest CT dated 01/04/2018. The cardiomediastinal silhouette is unremarkable noting atherosclerotic calcification of the thoracic aorta. There are calcified left hilar lymph nodes. Chronic interstitial thickening is similar to previous. Mild scarring/atelectasis is noted at the lung bases. The lungs and pleural spaces are otherwise clear. No pneumothorax is seen. The skeletal structures are osteopenic. There are healed right-sided rib fractures. There is chronic posttraumatic deformity of the right clavicle. Degenerative change is noted in the shoulders and spine. Fusion hardware is present at the thoracolumbar junction. IMPRESSION: No active disease in the chest. ACT 112: Negative or not required by law. Electronically signed by: Destin Rodriguez M.D. 08/04/2021 12:13 PM Hip/Pelvis X-Ray 08/04/21 10:59 SINGLE VIEW PELVIS; 2 VIEWS RIGHT HIP CLINICAL HISTORY: Fall with right hip injury. FINDINGS: 2 AP views of the pelvis with AP and crosstable lateral views of the right hip are compared to study dated 12/02/2017. The skeletal structures are osteopenic. There is a comminuted subtrochanteric fracture of the right proximal femur with displaced fragments. There is lateral displacement of the femoral shaft, and rotation of the right femoral head. The bony pelvis and left proximal femur appear intact. Mild degenerative joint space narrowing is present in both hips. Lumbosacral fusion hardware with iliac bolts is partially visualized. Soft tissue edema overlies the right proximal femur. A pain pump device is partially visualized projecting over the left lower quadrant. IMPRESSION: Comminuted and displaced subtrochanteric fracture of the right proximal femur with overlying soft tissue edema. Electronically signed by: Destin Rodriguez M.D. 08/04/2021 12:10 PM Discharge Plan Visit Data Chief Complaint: Leg Injury/Pain Stated Complaint: FALL, R LEG & BUTTOCKS PAIN ED Provider: Mauricio Wong Discharge Problem: Closed femur fracture, Fall, Acute hypokalemia, Acute hyponatremia Forms Stand Alone Forms: [facility] [place] [employer] Prescriptions Prescriptions: No Action donepezil [Aricept] 10 mg tablet 10 mg PO HS RF: 0 celecoxib 200 mg capsule 200 mg PO QAM RF: 0 cyanocobalamin (vitamin B-12) [Vitamin B-12] 1,000 mcg tablet 1,000 mcg PO QAM RF: 0 clopidogrel 75 mg tablet 75 mg PO HS RF: 0 memantine 10 mg tablet 10 mg PO BID RF: 0 omega 3-fsa-qik-fish oil [Fish Oil] 1,000 mg (120 mg-180 mg) Capsule 2,000 mg PO QAM RF: 0 Vitamin B-6 50 mg capsule 50 mg PO WK RF: 0 baclofen 40,000 mcg/20mL (2,000 mcg/mL) Solution 0 mcg continuous intrathecal infusion UD RF: 0 Referrals Referrals: Aaron Bowers MD [Primary Care Provider] - Discharge Problem: Closed femur fracture Qualifiers: Encounter type: initial encounter Femur location: unspecified portion of femur Fracture morphology: other fracture Laterality: right Qualified Code(s): S72.8X1A - Other fracture of right femur, initial encounter for closed fracture Fall Qualifiers: Encounter type: initial encounter Qualified Code(s): W19.XXXA - Unspecified fall, initial encounter
[2021-08-04 11:27] LABS: Partial Thromboplastin Ratio 0.8; Partial Thromboplastin Time 23.2 Seconds (21.0-31.0); Prothrombin Time 10.9 Seconds (9.0-12.0)
[2021-08-04 11:36] LABS: Basophils # (auto) 0.02 K/uL (0-0.2); Basophils % (auto) 0.4 %; Eosinophils # (auto) 0.07 K/uL (0-0.5); Eosinophils % (auto) 1.3 %; Hematocrit (blood only) 39.1 % (37-47); Hemoglobin 13.2 g/dL (12.0-16.0); Immature Granulocytes # (auto) 0.01 K/uL (0.00-0.02); Immature Granulocytes % (auto) 0.2 %; Lymphocytes # (auto) 2.05 K/uL (1.2-3.4); Lymphocytes % (auto) 39.2 %; Mean Corpuscular Hemoglobin 30.6 pg (25-34); Mean Corpuscular Hgb Conc 33.8 g/dL (32-36); Mean Corpuscular Volume 90.5 fL (80-100); Mean Platelet Volume 9.9 fL (7.4-10.4); Monocytes # (auto) 0.64 K/uL (0.11-0.59); Monocytes % (auto) 12.2 %; Neutrophils # (auto) 2.44 K/uL (1.4-6.5); Neutrophils % (auto) 46.7 %; Platelet Count 411 K/uL (130-400); RDW Coefficient of Variation 12.9 % (11.5-14.5); RDW Standard Deviation 42.9 fL (36.4-46.3); Red Blood Count 4.32 M/uL (4.2-5.4); White Blood Count 5.23 K/uL (4.8-10.8)
[2021-08-04 11:45] LABS: Albumin Globulin Ratio 1.8 (0.9-2); Albumin Level 4.5 gm/dl (3.4-5.0); BUN Creatinine Ratio 11.1 (10-20); Bilirubin,Total 0.6 mg/dl (0.2-1.0); Calcium 8.9 mg/dl (8.5-10.1); Creatinine Clr Calc Pharmacy 76.9 ml/min; Est GFR (African American) 109.1 ml/min; Est GFR (Non-African American) 94.1 ml/min; Globulin 2.5 gm/dl (2.5-4.0); Potassium 3.4 mmol/L (3.5-5.1)
[2021-08-04] MEDS ORDERED: MoRPHine SULFATE 10 MG/ML CARP/VIAL IV STA (12:03)
--- NOTE | 2021-08-04 12:13 | XRay Report ---
SINGLE VIEW PELVIS; 2 VIEWS RIGHT HIP CLINICAL HISTORY: Fall with right hip injury. FINDINGS: 2 AP views of the pelvis with AP and crosstable lateral views of the right hip are compared to study dated 12/02/2017. The skeletal structures are osteopenic. There is a comminuted subtrochante mihai fracture of the right proximal femur with displaced fragments. There is lateral displacement of t he femoral shaft, and rotation of the right femoral head. The bony pelvis and left proximal femur ricky ear intact. Mild degenerative joint space narrowing is present in both hips. Lumbosacral fusion hardw are with iliac bolts is partially visualized. Soft tissue edema overlies the right proximal femur. A pain pump device is partially visualized projecting over the left lower quadrant. IMPRESSION: Comminuted and displaced subtrochanteric fracture of the right proximal femur with overly ing soft tissue edema. Electronically signed by: Destin Rodriguez M.D. 08/04/2021 12:10 PM
--- NOTE | 2021-08-04 12:14 | XRay Report ---
SINGLE VIEW CHEST CLINICAL HISTORY: Fall. Right hip fracture. FINDINGS: An AP, portable, semierect chest radiograph is compared to study dated 07/15/2021 and correla mala with chest CT dated 01/04/2018. The cardiomediastinal silhouette is unremarkable noting atheroscl erotic calcification of the thoracic aorta. There are calcified left hilar lymph nodes. Chronic inter stitial thickening is similar to previous. Mild scarring/atelectasis is noted at the lung bases. The lungs and pleural spaces are otherwise clear. No pneumothorax is seen. The skeletal structures are os teopenic. There are healed right-sided rib fractures. There is chronic posttraumatic deformity of the right clavicle. Degenerative change is noted in the shoulders and spine. Fusion hardware is present at the thoracolumbar junction. IMPRESSION: No active disease in the chest. ACT 112: Negative or not required by law. Electronically signed by: Destin Rodriguez M.D. 08/04/2021 12:13 PM
--- NOTE | 2021-08-04 12:48 | History & Physical Report ---
Date of Service August 04, 2021 Assessment & Plan (1) Closed femur fracture: Plan: Osteoporotic fracture Vitamin D level 106 in May - no need to repeat this. Acetaminophen 1g IV/PO TID Morphine 2-4mg IV PRN LR 500ml bolus now then 125 ml/hr CXR - no acute active disease, EKG - NSR with non-specific ST abnormality Patient is medically optimized for surgery at this time. NPO pending orthopedics consult whether operation can be performed today. If planning on tomorrow can have regular meal and NPO @ midnight. (2) Fall: Plan: Secondary to prior right hemiparesis Will need PT/OT and rehab post operatively (3) Osteoporosis: Plan: Femur total right T-2.4, left T-2.5 Recommend starting bisphosphonate therapy with PCP after fracture healing. (4) Acute hypokalemia: Plan: KCl 20 meq IV now. Repeat BMP in AM (5) Chronic constipation with overflow: Plan: Noted history of this. Monitor for constipation. Start laxatives per hip fracture order set to avoid this. (6) Hemiplegia: Plan: Needs AFO right foot brace on ambulation and cane at baseline. On Aricept and memantine for reduced cognitive functioning, high chance of del irium and worsening expressive dysphasia while inpatient and on opiate pain medications. Plan: VTE Prophyalxis - per orthopedics Diet - as above Disposition - admit to med/surg Admission and Anticipated Discharge Date Admission Date: August 04, 2021 History of Present Illness Chief Complaint: Right hip pain Primary Care Provider: Aaron Bowers MD Denise Tamayo is a 65 year old female with right sided hemiparesis due to prior stroke 22 years ago who presents to the ER with right hip pain following a fall. Patient seen with her friend Peter in the room, she lives alone in her house. She denies any dizziness, shortness of breath or chest pain prior to falling. She has had 4 prior falls related to her right sided hemiparesis and subsequent ambulatory dysfunction. She wears a brace due to chronic right foot drop and walks with a cane. She has chronic mild expressive dysphasia and cognitive decline for which she takes Aricept and memantine. Today around 8:45am this morning she fell while holding a dog bowl and her cane while walking out the door onto her deck she fell the 4 inch drop and landed on her right side. She denies hitting her head, neck or loosing consciousness. She called for help and someone called EMS for her to bring her to the ER. She reports only having pain in her right groin, worse on movement, severity 9/10 even after a total 10mg morphine. Of note she is due a baclofen pump change on Thursday and therefore has been off her usual clopidogrel for the last 2 days. She has a significant history of CVA 22 years ago with residual chronic expressive dysphasia and right hemiparesis with minimal movement in her right arm and numbness down the right side of her body. She has never had a heart attack and no chest pain or shortness of breath on exertion. She last ate a waffle at 6:30am and last drank at 7am. She was referred to medicine for admission and ongoing management of right subtrochanteric femoral fracture. Allergies Allergy/AdvReac Type Severity Reaction Status Date / Time cephalexin Allergy Severe Anaphylaxis Verified 08/04/21 12:35 Penicillins AdvReac Mild nausea Verified 08/04/21 12:35 Home Medications Medication Instructions Recorded Confirmed Type clopidogrel 75 mg tablet 75 mg PO HS 01/04/18 08/04/21 History memantine 10 mg tablet 10 mg PO BID 01/04/18 08/04/21 History omega 2-krs-sai-fish oil 1,000 mg 2,000 mg PO QAM 01/04/18 08/04/21 History (120 mg-180 mg) capsule (Fish Oil) celecoxib 200 mg capsule 200 mg PO QAM 07/14/18 08/04/21 History donepezil 10 mg tablet (Aricept) 10 mg PO HS 08/01/20 08/04/21 History pyridoxine (vitamin B6) 50 mg 50 mg PO WK cap 08/01/20 08/04/21 History capsule (Vitamin B-6) cyanocobalamin (vitamin B-12) 1,000 mcg PO QAM tab 07/23/21 08/04/21 History 1,000 mcg tablet (Vitamin B-12) baclofen 0 mcg CONTINUOUS INTRATHECAL 08/04/21 08/04/21 History INFUSION UD Past Med/Surg History Medical History (Updated 08/04/21 @ 12:58 by Mauricio Wong DO) 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 (CVA) Hemiplegia Right side > wears AFO brace on RLE, no control of right arm History of CVA (cerebrovascular accident) 1998 large left MCA territory in setting of occluded left carotid potentially related to oral contraception at that time > chronic spastic right hemiparesis, flaccid upper limb and mild to moderate expressive aphasia > on plavix > follows with [place] [facility] History of depression 1998 per pt Hypertension controlled, stable per pt Left carotid artery occlusion Memory problem Osteoarthritis Osteoporosis 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) Vasovagal syncope if not laying flat during blood draws Surgical History Family history of reaction to anesthesia Mother: slow to wake History of back surgery Lumbar fusion x2 History of colonoscopy History of gynecologic surgery Labial "removal" History of tonsillectomy History of tooth extraction Presence of intrathecal pump Family History Father Cancer Family history of esophageal cancer Other No pertinent family history Social History Smoking Status: Former smoker Second Hand Exposure: Yes (IN THE PAST); Hx Alcohol Use: Yes Alcohol type: beer Preferred Language: Welsh 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 Beliefs That Will Affect Care: None Current Living Situation: Alone current occupational status: retired Feels Safe at Home: Yes Assistive Devices: Brace/Splint/Immobilizer and Glasses Review of Systems Review of Systems: All systems reviewed & are unremarkable except as noted in HPI & below Physical Exam Constitutional: WD/WN, vitals as above + acute distress (right groin pain) Eyes: PERRL, conjunctivae normal, anicteric sclerae ENMT: external ear and nose normal, oropharynx normal Neurologic: awake and + confused; + does not move all extremities (no movement of right sided) Speech / Cognition: + expressive aphasia (mild); no receptive aphasia Motor/Sensory: + sensory deficit (numbness on right sided extremities); no tremor Cranial Nerves: PERRL, EOM intact bilaterally, normal facial strength, able to rotate head bilaterally, able to elevate shoulders bilaterally, no nystagmus and symmetric palate elevation Comatose Patient: + decorticate rigidity (RUE) Psychiatric: A+Ox3, euthymic affect Results & Data Results & Data ([facility]) Vital Signs (Past 12 Hours) Vital Signs Temp Pulse Pulse Resp BP BP Pulse Ox 08/04/21 12:23 66 16 96 08/04/21 12:03 66 16 139/77 08/04/21 11:37 66 14 96 08/04/21 11:28 36.9 C 67 18 153/76 H 97 Laboratory Results Abnormal lab results 08/04/21 08/04/21 Range/Units 11:08 11:08 Plt Count 411 H (130-400) K/uL Mcdonald # (Auto) 0.64 H (0.11-0.59) K/uL Sodium 131 L (136-145) mmol/L Potassium 3.4 L (3.5-5.1) mmol/L Glucose 127 H (70-99(Fasting)) mg/dl Diagnostic Findings SINGLE VIEW CHEST CLINICAL HISTORY: Fall. Right hip fracture. FINDINGS: An AP, portable, semierect chest radiograph is compared to study dated 07/15/2021 and correlated with chest CT dated 01/04/2018. The cardiomediastinal silhouette is unremarkable noting atherosclerotic calcification of the thoracic aorta. There are calcified left hilar lymph nodes. Chronic interstitial thickening is similar to previous. Mild scarring/atelectasis is noted at the lung bases. The lungs and pleural spaces are otherwise clear. No pneumothorax is seen. The skeletal structures are osteopenic. There are healed right-sided rib fractures. There is chronic posttraumatic deformity of the right clavicle. Degenerative change is noted in the shoulders and spine. Fusion hardware is present at the thoracolumbar junction. IMPRESSION: No active disease in the chest. SINGLE VIEW PELVIS; 2 VIEWS RIGHT HIP CLINICAL HISTORY: Fall with right hip injury. FINDINGS: 2 AP views of the pelvis with AP and crosstable lateral views of the right hip are compared to study dated 12/02/2017. The skeletal structures are osteopenic. There is a comminuted subtrochanteric fracture of the right proximal femur with displaced fragments. There is lateral displacement of the femoral shaft, and rotation of the right femoral head. The bony pelvis and left proximal femur appear intact. Mild degenerative joint space narrowing is present in both hips. Lumbosacral fusion hardware with iliac bolts is partially visualized. Soft tissue edema overlies the right proximal femur. A pain pump device is partially visualized projecting over the left lower quadrant. IMPRESSION: Comminuted and displaced subtrochanteric fracture of the right proximal femur with overlying soft tissue edema. Medications Administered ER Medications Given: Morphine 6mg IV Morphine 4mg IV ECG Indication: other (Pre-op) Rate (beats per minute): 67 Rhythm: normal sinus Findings: + nonspecific-ST abn Comparison ECG Date: from (July 15, 2021) Change: no significant change Code Status & VTE Plan Code Status Full VTE Prophylaxis Plan VTE Prophylaxis will be ordered: Yes PG Care Time/CCT Total # of Minutes Spent Total Time Spent with Patient: Total time spent is greater than 50% in coordination of care (as documented) at patient's floor/unit and/or counseling patient: Coding Level of Care Code 70645 Initial Inpt Care Lvl 2 Diagnoses Closed femur fracture S72.8X1A Encounter type: initial encounter Femur location: unspecified portion of femur Fracture morphology: other fracture Laterality: right Fall W19.XXXA Encounter type: initial encounter Acute hypokalemia E87.6 Chronic constipation with overflow K59.09 Hemiplegia G81.90 Osteoporosis M81.0 (1) Closed femur fracture Encounter type: initial encounter Femur location: unspecified portion of femur Fracture morphology: other fracture Laterality: right Qualified Code(s): S72.8X1A - Other fracture of right femur, initial encounter for closed fracture (2) Fall Encounter type: initial encounter Qualified Code(s): W19.XXXA - Unspecified fall, initial encounter
[2021-08-04] MEDS ORDERED: LACTATED RINGER'S 500 ML IV STA (13:05)
[2021-08-04] MEDS ORDERED: ACETAMINOPHEN 1,000 MG/100 ML VIAL IV STA (13:16)
[2021-08-04] MEDS ORDERED: ACETAMINOPHEN 1000 MG/100 ML IV IV ONE (13:18)
--- NOTE | 2021-08-04 14:55 | Electrocardiogram Report ---
Test Reason : Blood Pressure : / mmHG Vent. Rate : 067 BPM Atrial Rate : 067 BPM P-R Int : 174 ms QRS Dur : 082 ms QT Int : 412 ms P-R-T Axes : 045 -03 062 degrees QTc Int : 435 ms Poor data quality, interpretation may be adversely affected Normal sinus rhythm Borderline ECG When compared with ECG of 15-JUL-2021 14:48, No significant change was found Confirmed by Yoseph Crenshaw ([id number]) on 08/04/2021 2:54:50 PM Referred By: Aaron Bowers Confirmed By:Yoseph Crenshaw
[2021-08-04] MEDS ORDERED: ONDANSETRON INJ 2 MG/ML 2 ML VIAL IV PRN (16:12)
[2021-08-04] MEDS ORDERED: bisacodyL 10 MG SUPP PR PRN (16:12)
[2021-08-04] MEDS ORDERED: NALOXONE HCL 0.4 MG/1 ML VIAL/CARP IV PRN (16:12)
[2021-08-04] MEDS ORDERED: MAGNESIUM HYDROXIDE SUSP 30 ML UDC PO PRN (16:12)
[2021-08-04] MEDS ORDERED: traMADol HCL 50 MG TABLET PO PRN ×2 (16:12)
[2021-08-04] MEDS: LACTATED RINGER'S 1,000 ML IV SCH (16:28)
[2021-08-04 17:17] LABS: Appearance Urine Clear (Clear); Bacteria Urine Automated Negative (Negative); Bilirubin Urine Negative (Negative); Blood Urine Negative (Negative); Color Urine Yellow; Epithelial Cell Urine Auto >30 /lpf (0-5); Glucose Urine UA Negative (Negative); Ketones Urine Negative (Negative); Leukocyte Esterase Urine Negative (Negative); Nitrite Urine Negative (Negative); Protein Urine Trace (Negative); RBC Urine Automated 0-4 /hpf (0-4); Specific Gravity Urine 1.023 (1.000-1.030); Urobilinogen Urine Negative (Negative)
--- NOTE | 2021-08-04 17:47 | Anesthesiology Consultation ---
Date of Service August 04, 2021 Assessment & Plan (1) Encounter for pre-operative examination: Chart Review Chart Review: Acceptable Risk for Surgery History Allergies Allergy/AdvReac Type Severity Reaction Status Date / Time cephalexin Allergy Severe Anaphylaxis Verified 08/04/21 12:35 Penicillins AdvReac Mild nausea Verified 08/04/21 12:35 Medications Home Medications Medication Instructions Recorded Confirmed Last Taken clopidogrel 75 mg tablet 75 mg PO HS 01/04/18 08/04/21 07/30/21 memantine 10 mg tablet 10 mg PO BID 01/04/18 08/04/21 08/04/21 omega 4-xrq-uho-fish oil 1,000 mg 2,000 mg PO QAM 01/04/18 08/04/21 08/03/21 (120 mg-180 mg) capsule (Fish Oil) celecoxib 200 mg capsule 200 mg PO QAM 07/14/18 08/04/21 08/01/21 donepezil 10 mg tablet (Aricept) 10 mg PO HS 08/01/20 08/04/21 08/03/21 pyridoxine (vitamin B6) 50 mg 50 mg PO WK cap 08/01/20 08/04/21 07/30/21 capsule (Vitamin B-6) cyanocobalamin (vitamin B-12) 1,000 mcg PO QAM tab 07/23/21 08/04/21 07/30/21 1,000 mcg tablet (Vitamin B-12) baclofen 0 mcg CONTINUOUS INTRATHECAL 08/04/21 08/04/21 08/04/21 INFUSION UD Active Medications Generic Name Dose Route Start Last Admin Trade Name Freq PRN Reason Stop Dose Admin Lactated Ringer's 1,000 mls @ 125 mls/hr 08/04/21 16:12 08/04/21 16:28 Lr IV 09/03/21 16:11 125 mls/hr .Q8H FREDO Administration Past Medical History Medical History 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 (CVA) Hemiplegia Right side > wears AFO brace on RLE, no control of right arm History of CVA (cerebrovascular accident) 1998 large left MCA territory in setting of occluded left carotid potentially related to oral contraception at that time > chronic spastic right hemiparesis, flaccid upper limb and mild to moderate expressive aphasia > on plavix > follows with [place] [facility] History of depression 1998 per pt Hypertension controlled, stable per pt Left carotid artery occlusion Memory problem Osteoarthritis Osteoporosis 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) Vasovagal syncope if not laying flat during blood draws Exercise / Class Metabolic Activity III < 4 Walking/Shop/Light housework Past Family History Family History Father Cancer Family history of esophageal cancer Other No pertinent family history Past Surgical History Surgical History Family history of reaction to anesthesia Mother: slow to wake History of back surgery Lumbar fusion x2 History of colonoscopy History of gynecologic surgery Labial "removal" History of tonsillectomy History of tooth extraction Presence of intrathecal pump Social History Smoking Status: Former smoker tobacco type: cigarettes Do You Dip or Chew Tobacco: No Hx Alcohol Use: Yes Alcohol type: beer alcohol intake frequency: 0-2 drinks per day Hx Substance Use: No substance use type: does not use Physical Exam Vital Signs Last Vital Signs Temp 36.9 C 08/04/21 16:16 Pulse 63 08/04/21 16:16 Resp 18 08/04/21 16:16 BP 155/81 H 08/04/21 16:16 Pulse Ox 99 08/04/21 16:33 Testing Laboratory Results 08/04/21 11:08 08/04/21 11:08 PT 10.9 Seconds (9.0-12.0) 08/04/21 11:08 INR 1.0 (0.9-1.1) 08/04/21 11:08 APTT 23.2 Seconds (21.0-31.0) 08/04/21 11:08 Urine Color Yellow 08/04/21 17:07 Urine Appearance Clear (Clear) 08/04/21 17:07 Urine pH 7.0 (4.5-7.5) 08/04/21 17:07 Ur Specific [place] 1.023 (1.000-1.030) 08/04/21 17:07 Urine Protein Trace (Negative) H 08/04/21 17:07 Urine Glucose (UA) Negative (Negative) 08/04/21 17:07 Urine Ketones Negative (Negative) 08/04/21 17:07 Urine Nitrite Negative (Negative) 08/04/21 17:07 Ur Leukocyte Esterase Negative (Negative) 08/04/21 17:07 Urine WBC (Auto) 5-10 /hpf (0-5) H 08/04/21 17:07 Urine RBC (Auto) 0-4 /hpf (0-4) 08/04/21 17:07 U Hyaline Cast (Auto) 1-5 /lpf (0-5) 08/04/21 17:07 U Epithel Cells (Auto) >30 /lpf (0-5) H 08/04/21 17:07 Urine Bacteria (Auto) Negative (Negative) 08/04/21 17:07 Blood Type A Negative 08/04/21 14:09 Antibody Screen NEGATIVE 08/04/21 14:09 Electrocardiogram Date: 08/04/21 Findings: + NSR @ (67) Chest X-Ray Date: 08/04/21 Findings: + NAD
[2021-08-04] MEDS: POTASSIUM CHLORIDE / WTR 10 MEQ/100 ML PLCT IV SCH ×2 (17:50→19:07)
[2021-08-04] MEDS ORDERED: ACETAMINOPHEN 1,000 MG/100 ML VIAL IV SCH (18:00)
[2021-08-04] MEDS: MoRPHine SULFATE 4 MG/ML 1 ML CARP\\VIAL IV PRN (20:47)
--- NOTE | 2021-08-04 20:48 | XRay Report ---
RIGHT FEMUR 2 VIEWS CLINICAL HISTORY: Right femoral fracture. FINDINGS: AP and crosstable lateral portable views the right femur are compared to study performed ea vanessa the same day 08/04/2021. Again seen is a displaced subtrochanteric fracture of the right proxima l femur. There are displaced fragments, the femoral shaft is laterally displaced, and there is angula tion at the fracture site. Overlying soft tissue edema is noted. The distal femur appears intact. The right hip joint is maintained noting degenerative narrowing. Lumbosacral fusion hardware is partiall y visualized. A catheter projects over the groin. IMPRESSION: No significant change in the alignment of a subtrochanteric right femoral fracture as com pared to previous. Electronically signed by: Destin Rodriguez M.D. 08/04/2021 8:45 PM
[2021-08-04] MEDS: MEMANTINE HCL 10 MG TAB PO SCH (20:50)
[2021-08-04] MEDS: DONEPEZIL HCL 10 MG TAB PO SCH (20:50)
[2021-08-04] MEDS ORDERED: ACETAMINOPHEN 500 MG TAB PO SCH (21:00)
[2021-08-04] MEDS ORDERED: DOCUSATE SODIUM/SENNA 50/8.6MG TAB PO SCH (21:00)
[2021-08-05] MEDS: LACTATED RINGER'S 1,000 ML IV SCH ×2 (00:45→19:56)
[2021-08-05] MEDS: MoRPHine SULFATE 4 MG/ML 1 ML CARP\\VIAL IV PRN ×2 (04:00→20:12)
[2021-08-05] MEDS: ACETAMINOPHEN 325 MG TAB PO SCH ×3 (04:00→15:56)
[2021-08-05] MEDS ORDERED: CYCLOBENZAPRINE HCL 5 MG TAB PO STA (04:41)
[2021-08-05 06:01] LABS: Basophils # (auto) 0.02 K/uL (0-0.2); Basophils % (auto) 0.3 %; Eosinophils # (auto) 0.08 K/uL (0-0.5); Hematocrit (blood only) 36.4 % (37-47); Hemoglobin 12.2 g/dL (12.0-16.0); Immature Granulocytes # (auto) 0.02 K/uL (0.00-0.02); Immature Granulocytes % (auto) 0.3 %; Lymphocytes # (auto) 1.33 K/uL (1.2-3.4); Lymphocytes % (auto) 17.4 %; Mean Corpuscular Hemoglobin 30.2 pg (25-34); Mean Corpuscular Hgb Conc 33.5 g/dL (32-36); Mean Corpuscular Volume 90.1 fL (80-100); Monocytes # (auto) 0.95 K/uL (0.11-0.59); Monocytes % (auto) 12.5 %; Neutrophils # (auto) 5.23 K/uL (1.4-6.5); Neutrophils % (auto) 68.5 %; Platelet Count 293 K/uL (130-400); RDW Standard Deviation 42.6 fL (36.4-46.3); Red Blood Count 4.04 M/uL (4.2-5.4); White Blood Count 7.63 K/uL (4.8-10.8)
[2021-08-05 06:42] LABS: BUN Creatinine Ratio 17.5 (10-20); Calcium 8.2 mg/dl (8.5-10.1); Creatinine Clr Calc Pharmacy 121.1 ml/min; Est GFR (African American) 126.7 ml/min; Est GFR (Non-African American) 109.3 ml/min; Potassium 3.8 mmol/L (3.5-5.1)
[2021-08-05] MEDS ORDERED: fentaNYL citrate 100 MCG/2 ML VIAL ONE (07:15)
[2021-08-05] MEDS ORDERED: ONDANSETRON INJ 2 MG/ML 2 ML VIAL ONE (07:27)
[2021-08-05] MEDS ORDERED: PROPOFOL IV EMULSION 10 MG/ML 20 ML VIAL IV ONE (07:27)
[2021-08-05] MEDS ORDERED: LIDOCAINE 2% 2 ML VIAL/AMP(20MG/ML) INFIL ONE (07:27)
--- NOTE | 2021-08-05 07:54 | Orthopedic Consultation ---
Date of Consultation August 05, 2021 Assessment & Plan (1) Closed femur fracture: - Pain control -Nonweightbearing right lower extremity -Bedrest with Nascimento's traction -N.p.o. for OR -Hold DVT prophylaxis for OR -Medical management -Plan for OR today for right hip cephalomedullary nail History of Present Illness Reason for Consultation: Right subtrochanteric femur fracture Attending Physician: Evan Jin MD History of Present Illness 65-year-old female presenting to [facility] emergency department after sustaining a ground-level fall at home. She reports that she was walking to get water for her dog whenever she tripped and fell landing on her right side. She noted immediate deformity in her right lower extremity and was unable to ambulate. She does have a prior history of a stroke resulting in a right sided hemiparesis. Denies any other injuries. Patient was admitted to medical service and orthopedics was consulted for operative management. Allergies Allergy/AdvReac Type Severity Reaction Status Date / Time cephalexin Allergy Severe Anaphylaxis Verified 08/04/21 12:35 Penicillins AdvReac Mild nausea Verified 08/04/21 12:35 Home Medications Medication Instructions Recorded Confirmed Type clopidogrel 75 mg tablet 75 mg PO HS 01/04/18 08/04/21 History memantine 10 mg tablet 10 mg PO BID 01/04/18 08/04/21 History omega 6-lit-bpl-fish oil 1,000 mg 2,000 mg PO QAM 01/04/18 08/04/21 History (120 mg-180 mg) capsule (Fish Oil) celecoxib 200 mg capsule 200 mg PO QAM 07/14/18 08/04/21 History donepezil 10 mg tablet (Aricept) 10 mg PO HS 08/01/20 08/04/21 History pyridoxine (vitamin B6) 50 mg 50 mg PO WK cap 08/01/20 08/04/21 History capsule (Vitamin B-6) cyanocobalamin (vitamin B-12) 1,000 mcg PO QAM tab 07/23/21 08/04/21 History 1,000 mcg tablet (Vitamin B-12) baclofen 0 mcg CONTINUOUS INTRATHECAL 08/04/21 08/04/21 History INFUSION UD Patient History Medical History 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 (CVA) Hemiplegia Right side > wears AFO brace on RLE, no control of right arm History of CVA (cerebrovascular accident) 1998 large left MCA territory in setting of occluded left carotid potentially related to oral contraception at that time > chronic spastic right hemiparesis, flaccid upper limb and mild to moderate expressive aphasia > on plavix > follows with [place] [facility] History of depression 1998 per pt Hypertension controlled, stable per pt Left carotid artery occlusion Memory problem Osteoarthritis Osteoporosis 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) Vasovagal syncope if not laying flat during blood draws Surgical History Family history of reaction to anesthesia Mother: slow to wake History of back surgery Lumbar fusion x2 History of colonoscopy History of gynecologic surgery Labial "removal" History of tonsillectomy History of tooth extraction Presence of intrathecal pump Family History Father Cancer Family history of esophageal cancer Other No pertinent family history Social History Smoking Status: Former smoker Second Hand Exposure: No; Hx Alcohol Use: Yes Alcohol type: beer Hx Substance Use: No Preferred Language: Kinyarwanda Communication Ability: Impaired 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 Beliefs That Will Affect Care: None Current Living Situation: Alone current occupational status: retired Feels Safe at Home: Yes Assistive Devices: Cane Physical Exam Constitutional: General: Alert and oriented to person place and time Musculoskeletal: Right lower extremity -Leg is shortened and externally rotated -Pain with logroll, patient is in Nascimento's traction -Sensation intact to light touch s/spn/dpn/t/s -Hemiparesis right lower extremity -Palpable dorsalis pedis and posterior tibial pulses Results & Data ([facility]) Vital Signs (Past 12 Hours) Vital Signs Temp Pulse Resp BP Pulse Ox Pulse Ox 08/04/21 22:14 36.7 C 68 16 133/70 95 08/04/21 20:50 95 Diagnostic Findings Right hip radiographs demonstrate a completely displaced right subtrochanteric femur fracture there is flexion of the proximal segment. (1) Closed femur fracture Encounter type: initial encounter Femur location: unspecified portion of femur Fracture morphology: other fracture Laterality: right Qualified Code(s): S72.8X1A - Other fracture of right femur, initial encounter for closed fracture
--- NOTE | 2021-08-05 07:55 | History & Physical Bridge Note ---
Date of Service August 05, 2021 History & Physical Bridge Note I have examined the patient, reviewed the History & Physical and in the interval since the performance of the History & Physical I have noted the following changes of clinical significance: no changes noted. Patient seen and examined, plan for OR today for right hip cephalomedullary nail
[2021-08-05] MEDS ORDERED: KETOROLAC 30 MG/ML VIAL IV PRN (07:58)
[2021-08-05] MEDS ORDERED: ATROPINE SULFATE 0.1 MG/ML 10ML SYR IV PRN (07:58)
[2021-08-05] MEDS ORDERED: HYDROmorphone INJ 1 MG/ML SYRINGE IV PRN (07:58)
[2021-08-05] MEDS ORDERED: ONDANSETRON INJ 2 MG/ML 2 ML VIAL IV PRN ×2 (07:58→11:02)
[2021-08-05] MEDS ORDERED: PROMETHAZINE HCL 6.25 MG in SODIUM CHLORIDE 0.9% 50 ML IV PRN (07:58)
[2021-08-05] MEDS ORDERED: CLINDAMYCIN 900 MG in DEXTROSE 5% 50 ML IV ONE (08:00)
[2021-08-05] MEDS ORDERED: BUPIVACAINE 0.25% 30 ML VIAL ONE (08:08)
[2021-08-05] MEDS ORDERED: KETOROLAC 30 MG/ML VIAL ONE (10:01)
--- NOTE | 2021-08-05 10:01 | Post Operative Brief Note ---
Immediate Post Op Note v1 Date of Surgery August 05, 2021 Pre & Post Diagnosis Operation Date: 08/05/21 08:00 Pre-Op Diagnosis: Right closed femur fracture. Post-Op Diagnosis: Right closed femur fracture. I identified the patient and participated in the time-out.: Yes Procedure Operation Date: 08/05/21 08:00 Actual Procedures p Intramedullary Edi Femur Right(Right) - Bryant Cowart DO Surgeon Bryant Cowart DO Nuclear Powerplant Mechanic none Estimated Blood Loss 50 Findings Consistent with Post-Op Diagnosis See dictation Complications None
--- NOTE | 2021-08-05 10:09 | Operative Report ---
Post Operative Report Pre & Post Diagnosis Operation Date: 08/05/21 08:00 Pre-Op Diagnosis: Right closed femur fracture. Post-Op Diagnosis: Right closed femur fracture. I identified the patient and participated in the time-out.: Yes Procedure Operation Date: 08/05/21 08:00 Actual Procedures p Intramedullary Edi Femur Right(Right) - Bryant Cowart DO Surgeon Bryant Cowart DO Upper Cutter Machine none Estimated Blood Loss 50 Findings Consistent with Post-Op Diagnosis See dictation Specimens None Complications None Indications 65-year-old female who sustained a ground-level fall while getting water for her dog at home. She reports falling onto her right side and noting immediate pain and deformity. In the emergency department she was found to have a displaced right subtrochanteric femur fracture. She was admitted to medical service and orthopedics was consulted for operative management. Preoperatively I met with the patient and we do lengthy discussion regarding risk benefits and potential complications of right hip cephalomedullary nail. After reviewing these she elected to proceed with surgical invention and written consent was obtained. Description of Procedure Patient was seen in the preoperative holding area and right lower extremity was marked. She was then taken back to the operative suite where she received clindamycin per protocol. After successful induction of general anesthesia she was transferred over to the manual fracture table. Using the assistance of fluoroscopy manual fracture table was used in addition to a crutch to manipulate the fracture into a satisfactory position. Patient was then prepped and draped in the standard orthopedic fashion and timeout was performed. A 4 cm incision superior to the tip of the trochanter was then made through the skin and deep fascia. A threaded guidewire was then inserted into the tip of the trochanter advanced into the medullary canal. Its position was confirmed on AP and lateral fluoroscopy and noted to be satisfactory. 17 mm canal opening reamer was then used to open the proximal canal. Threaded guidewire and reamer were then removed. A ball-tipped guidewire was then inserted through a T-handled canal finder. Using a combination of extension and abduction the proximal segment was able to be positioned in a satisfactory position and the ball-tipped guidewire was then advanced into the distal segment. Position of the guidewire was confirmed on AP and lateral fluoroscopy. Length of the ball-tipped guidewire was then measured and determined to be 380 mm. Then starting with an 8.5 mm reamer the canal was sequentially reamed up to a size 12.5 mm reamer to accommodate an 11 mm nail. An 11 mm x 380 mm nail was then inserted over the guidewire. Guidewire was then removed. Proximal aiming arm was then attached for the lag screw. An incision was then made through the skin subcutaneous tissue and deep fascia for the lag screw. Triple sleeve guide was then advanced down to bone and a threaded guidewire was inserted through the lateral cortex into the femoral head and a center center position seated in the subchondral bone. Length of the guidewire was measured at 85 mm. A lateral cortical reamer was used followed by a tapered reamer set to 85 mm. An 85 mm lag screw was then inserted over the guidewire and the implant was locked statically at the proximal aspect. Position was confirmed on AP and lateral fluoroscopy and noted to be satisfactory. At this time traction was let off of the distal segment to allow compression at the fracture site. The leg was also slightly abducted. Us ing the assistance of fluoroscopy perfect [place]ct[place] was obtained at the distal static interlock. Incision was made through skin and subcutaneous tissue as well as fascia down to bone. A drill was then used to drill bicortically. Locking screw was then measured and found to be 44 mm. A 5 mm x 44 mm locking screw was then inserted through the static lock. Position was confirmed on AP and lateral fluoroscopy and noted to be satisfactory. Proximal aiming arm was then removed and final radiographs were obtained demonstrating satisfactory reduction. Wounds were then copiously irrigated using normal saline solution. Quarter percent Marcaine injection was then injected into the subcutaneous tissue at the incision sites. Deep fascia was then closed using 1-0 Vicryl followed by 2-0 Vicryl for the subcutaneous tissue and joan for the skin. Silverlon dressing was used to cover the top 2 incisions. A dressing of Xeroform 4 x 4 gauze and an OpSite was used to couple the distal incision. Patient tolerated the procedure well and was taken to the recovery room in hemodynamically stable condition. Implants: Synthes 11 mm x 380 mm right 130 degree TFN, 11 mm x 85 mm TFN screw, 5 mm x 44 mm locking screw I attest to the content of the Intraoperative Record and any orders documented therein. Any exceptions are noted below.
[2021-08-05] MEDS ORDERED: HYDROmorphone INJ 1 MG/ML SYRINGE ONE (10:13)
--- NOTE | 2021-08-05 10:26 | Fluoroscopy Report ---
FL femur RT 2V CLINICAL HISTORY: RT LONG TROCH NAIL TECHNIQUE: 5 views were obtained with the C-arm in the OR with the above procedure. Total fluoroscopy time was 151.9 seconds. Total skin dose was 22.5 mGy. Comparison: Comparison is made to right femur radiograph 08/04/2021 FINDINGS/IMPRESSION: Intraoperative images were obtained of right femur trochanteric nail placement. Please correlate with intraoperative fluoroscopy and operative report. ACT 112: Negative or not required by law. Electronically signed by: Dex Moon M.D. 08/05/2021 10:25 AM
[2021-08-05] MEDS ORDERED: MAGNESIUM HYDROXIDE SUSP 30 ML UDC PO PRN (11:02)
[2021-08-05] MEDS ORDERED: bisacodyL 10 MG SUPP PR PRN (11:02)
[2021-08-05] MEDS ORDERED: METOCLOPRAMIDE HCL INJ 5 MG/ML 2 ML VIAL IV PRN (11:02)
[2021-08-05] MEDS ORDERED: NALOXONE HCL 0.4 MG/1 ML VIAL/CARP IV PRN (11:02)
--- NOTE | 2021-08-05 11:02 | Anesthesiology Progress Note ---
Date of Service August 05, 2021 Anesthesia Post Procedure Vital Signs Vital Signs: Temp Pulse Pulse Pulse Resp BP BP 08/05/21 10:45 36 C L 64 16 135/78 08/05/21 10:35 36 C L 74 27 H 104/79 08/05/21 10:25 71 15 126/69 08/05/21 10:15 77 23 126/94 08/05/21 10:05 85 20 122/83 08/05/21 09:55 36 C L 85 18 123/78 08/04/21 22:14 36.7 C 68 16 133/70 08/04/21 20:50 08/04/21 16:33 08/04/21 16:16 36.9 C 63 18 155/81 H 08/04/21 13:30 63 11 L 138/75 08/04/21 13:00 66 17 133/72 08/04/21 12:30 63 24 08/04/21 12:23 66 16 08/04/21 12:09 62 19 136/79 08/04/21 12:03 66 16 139/77 08/04/21 12:00 69 18 08/04/21 11:57 62 17 139/77 08/04/21 11:37 66 14 08/04/21 11:28 36.9 C 67 18 153/76 H Pulse Ox Pulse Ox 08/05/21 10:45 100 08/05/21 10:35 100 08/05/21 10:25 98 08/05/21 10:15 100 08/05/21 10:05 97 08/05/21 09:55 100 08/04/21 22:14 95 08/04/21 20:50 95 08/04/21 16:33 99 08/04/21 16:16 98 08/04/21 13:30 08/04/21 13:00 08/04/21 12:30 08/04/21 12:23 96 08/04/21 12:09 99 08/04/21 12:03 08/04/21 12:00 08/04/21 11:57 08/04/21 11:37 96 08/04/21 11:28 97 Pain Intensity Right Hip: Pain Intensity: 8 Transfer of Care Handoff Completed per policy Notes Mental Status: alert / awake / arousable Patient Amnestic to Procedure: Yes Nausea / Vomiting: adequately controlled Pain: adequately controlled Airway Patency, RR, SpO2: stable & adequate BP & HR: stable & adequate Hydration State: stable & adequate Anesthetic Complications: no major complications apparent
[2021-08-05] MEDS: SODIUM CHLORIDE 0.9% 1000ML 1,000 ML IV SCH ×2 (12:20→22:38)
[2021-08-05] MEDS: MEMANTINE HCL 10 MG TAB PO SCH ×2 (12:48→20:11)
[2021-08-05] MEDS: CYANOCOBALAMIN (B-12) 500 MCG TABLET PO SCH (12:48)
[2021-08-05] MEDS: CLINDAMYCIN 600 MG in DEXTROSE 5% 50 ML IV SCH (15:56)
--- NOTE | 2021-08-05 18:17 | Hospitalist Progress Note ---
Date of Service August 05, 2021 Assessment & Plan (1) Closed femur fracture: Plan: Osteoporotic fracture Vitamin D level 106 in May - no need to repeat this. Acetaminophen 1g PO TID Tramadol 50-100mg PO q4h PRN CXR - no acute active disease, EKG - NSR with non-specific ST abnormality POD#0 Intramedullary Edi Femur Right performed by Dr Cowart. VTE and Abx prophylaxis per orthopedics (2) Fall: Plan: Secondary to prior right hemiparesis Will need PT/OT and rehab post operatively - PWB 50% RLE (3) Hyponatremia: Plan: Suspect due to LR given yesterday. Agree with NSS post operatively. Monitor with BMP in AM. (4) Osteoporosis: Plan: Femur total right T-2.4, left T-2.5 Recommend starting bisphosphonate therapy with PCP after fracture healing. (5) Acute hypokalemia: Plan: KCl 20 meq IV yesterday; now resolved. (6) Chronic constipation with overflow: Plan: Noted history of this. Monitor for constipation. Continue laxatives as ordered by orthopedics. (7) Hemiplegia: Plan: Needs AFO right foot brace on ambulation and cane at baseline. On Aricept and memantine for reduced cognitive functioning, high chance of delirium and worsening expressive dysphasia while inpatient and on opiate pain medications. Plan: VTE Prophylaxis - per orthopedics Diet - as above Disposition - continue on med/surg Admission and Anticipated Discharge Date Admission Date: August 04, 2021 Subjective Patient seen post operatively. Feels she is doing well, pain severity 8/10 on movement however. Not yet been out of bed. Ongoing problems with expressive dysphasia and clearly having some difficulty after anesthesia however similar to occasional word finding difficulty after morphine yesterday. Review of Systems Review of Systems: All systems reviewed & are unremarkable except as noted in Subjective Physical Exam Constitutional: WD/WN, vitals as above + acute distress (right groin pain) Eyes: PERRL, conjunctivae normal, anicteric sclerae ENMT: external ear and nose normal, oropharynx normal Respiratory: normal respiratory effort, lungs clear to auscultation Cardiovascular: RRR, no murmur, no edema Gastrointestinal (Abdomen): Percussion/Palpation: abdomen soft; abdomen nontender Skin: no rashes, warm and dry Neurologic: awake; + does not move all extremities (no movement of right side) and not confused Speech / Cognition: + expressive aphasia (mild); no receptive aphasia Motor/Sensory: + sensory deficit (numbness on right sided extremities); no tremor Psychiatric: A+Ox3, euthymic affect Results & Data Results & Data ([facility]) Vital Signs (Past 12 Hours) Vital Signs Temp Pulse Pulse Resp BP Pulse Ox 08/05/21 15:59 36.5 C 67 20 127/74 08/05/21 13:10 36.5 C 72 18 122/70 94 08/05/21 12:10 36.4 C L 67 18 126/70 95 08/05/21 11:31 36.4 C L 63 18 129/72 98 08/05/21 11:10 35.9 C L 66 12 145/71 H 98 08/05/21 10:45 36 C L 64 16 135/78 100 08/05/21 10:35 36 C L 74 27 H 104/79 100 08/05/21 10:25 71 15 126/69 98 08/05/21 10:15 77 23 126/94 100 08/05/21 10:05 85 20 122/83 97 08/05/21 09:55 36 C L 85 18 123/78 100 PG Care Time/CCT Total # of Minutes Spent Total Time Spent with Patient: Total time spent is greater than 50% in coordination of care (as documented) at patient's floor/unit and/or counseling patient: Coding Level of Care Code 87859 Subseq Hosp Care Lvl 2 Diagnoses Closed femur fracture S72.8X1A Encounter type: initial encounter Femur location: unspecified portion of femur Fracture morphology: other fracture Laterality: right Fall W19.XXXA Encounter type: initial encounter Osteoporosis M81.0 Acute hypokalemia E87.6 Chronic constipation with overflow K59.09 Hemiplegia G81.90 Hyponatremia E87.1 (1) Closed femur fracture Encounter type: initial encounter Femur location: unspecified portion of femur Fracture morphology: other fracture Laterality: right Qualified Code(s): S72.8X1A - Other fracture of right femur, initial encounter for closed fracture (2) Fall Encounter type: initial encounter Qualified Code(s): W19.XXXA - Unspecified fall, initial encounter
--- NOTE | 2021-08-05 19:51 | Pain Management Consultation ---
Date of Consultation August 05, 2021 Assessment & Plan (1) 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 (CVA): * Recommend proceeding with replacement of the intrathecal pump as patient is at risk of baclofen withdrawals due to end of battery life. Additionally, her clopidogrel has been withheld and no contraindications noted to proceed due to the fixation of femoral fracture. * Patient was offered to proceed versus delaying the placement of the pump. After discussion, and answering her questions, she elects to proceed and gave full informed consent. Present on Admission?: Yes (2) Hemiplegia: Hemiplegia etiology: late effect of cerebrovascular disease Hemiplegia laterality: right dominant side Hemiplegia type: spastic Present on Admission?: Yes History of Present Illness Reason for Consultation: Reevaluate patient for replacement of intrathecal baclofen pump due to end-of-life battery. Attending Physician: Evan Jin MD History of Present Illness Denise Tamayo is a 65-year-old female with history of CVA with residual hemiplegia and spasticity who has an intrathecal pump implanted for controlling the spasticity. Her intrathecal pump is approaching end of useful battery life and needs replacement. Unfortunately, she sustained a fall resulting in right femoral fracture. Today she underwent fixation of the right trochanteric fracture. Consultation was requested to determine whether or not to proceed with the placement of the intrathecal baclofen pump. Patient reports that intrathecal baclofen therapy is efficacious in reducing her spasticity. She denies any changes in her baseline spasticity since surgical pump has been implanted. No problems with catheter or pump sites are reported. Allergies Allergy/AdvReac Type Severity Reaction Status Date / Time cephalexin Allergy Severe Anaphylaxis Verified 08/04/21 12:35 Penicillins AdvReac Mild nausea Verified 08/04/21 12:35 Home Medications Medication Instructions Recorded Confirmed Type clopidogrel 75 mg tablet 75 mg PO HS 01/04/18 08/04/21 History memantine 10 mg tablet 10 mg PO BID 01/04/18 08/04/21 History omega 8-ddt-mgv-fish oil 1,000 mg 2,000 mg PO QAM 01/04/18 08/04/21 History (120 mg-180 mg) capsule (Fish Oil) celecoxib 200 mg capsule 200 mg PO QAM 07/14/18 08/04/21 History donepezil 10 mg tablet (Aricept) 10 mg PO HS 08/01/20 08/04/21 History pyridoxine (vitamin B6) 50 mg 50 mg PO WK cap 08/01/20 08/04/21 History capsule (Vitamin B-6) cyanocobalamin (vitamin B-12) 1,000 mcg PO QAM tab 07/23/21 08/04/21 History 1,000 mcg tablet (Vitamin B-12) baclofen 0 mcg CONTINUOUS INTRATHECAL 08/04/21 08/04/21 History INFUSION UD Patient History Medical History 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 (CVA) Hemiplegia Right side > wears AFO brace on RLE, no control of right arm History of CVA (cerebrovascular accident) 1998 large left MCA territory in setting of occluded left carotid potentially related to oral contraception at that time > chronic spastic right hemiparesis, flaccid upper limb and mild to moderate expressive aphasia > on plavix > follows with [place] neuro History of depression 1998 per pt Hypertension controlled, stable per pt Left carotid artery occlusion Memory problem Osteoarthritis Osteoporosis 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) Vasovagal syncope if not laying flat during blood draws Surgical History Family history of reaction to anesthesia Mother: slow to wake History of back surgery Lumbar fusion x2 History of colonoscopy History of gynecologic surgery Labial "removal" History of tonsillectomy History of tooth extraction Presence of intrathecal pump Family History Father Cancer Family history of esophageal cancer Other No pertinent family history Social History Smoking Status: Former smoker Second Hand Exposure: No; Hx Alcohol Use: Yes Alcohol type: beer Hx Substance Use: No Preferred Language: Slovak Communication Ability: Impaired Exterior Door Installer 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 Beliefs That Will Affect Care: None Current Living Situation: Alone current occupational status: retired Feels Safe at Home: Yes Assistive Devices: Cane Physical Exam Constitutional: + physical limitations; no acute distress Respiratory: normal respiratory effort, lungs clear to auscultation Cardiovascular: RRR, no murmur, no edema Gastrointestinal (Abdomen): normal bowel sounds, soft, nontender, no hepatosplenomegaly Intrathecal pump left lower quadrant of the abdomen Musculoskeletal: Spine: + kyphosis; no pain with thoraco-lumbar ROM and no lumbar spinal tenderness Extremities: + abnormal strength (Right hemiplegia in the upper and lower extremities. ) and + muscle atrophy Flexion contracture with spasticity right upper extremity Skin: + rash (Nonspecific over the trunk) Neurologic: + focal motor deficit (Right upper and lower extremity)
[2021-08-05] MEDS: ACETAMINOPHEN 500 MG TAB PO SCH (20:09)
[2021-08-05] MEDS: DOCUSATE SODIUM 100 MG CAP PO SCH (20:10)
[2021-08-05] MEDS: ASPIRIN 81 MG ECTAB PO SCH (20:10)
[2021-08-05] MEDS: SENNA 8.6 MG TAB PO SCH (20:11)
[2021-08-05] MEDS: DONEPEZIL HCL 10 MG TAB PO SCH (20:11)
[2021-08-06] MEDS: CLINDAMYCIN 600 MG in DEXTROSE 5% 50 ML IV SCH (00:11)
[2021-08-06] MEDS ORDERED: CLINDAMYCIN PHOS 900 MG/6 ML VIAL IV SCH ×2 (06:00→06:30)
[2021-08-06] MEDS ORDERED: CLINDAMYCIN 900 MG in DEXTROSE 5% 50 ML IV SCH (06:00)
--- NOTE | 2021-08-06 07:11 | History & Physical Bridge Note ---
Date of Service August 06, 2021 History & Physical Bridge Note Denise Tamayo is a 65-year-old female with history of right hemiparesis and spasticity as result of a CVA. Her spasticity is well controlled with intrathecal baclofen therapy. Her intrathecal pump is approaching end-of-life and needs replacement. She also sustained a right hip fracture which was surgically fixed yesterday and she is scheduled to undergo replacement pump today. Other than the recent fracture and the fixation, there will be no change in overall health since the last history and physical examination from the office and consultation from yesterday. Her history, physical exam, laboratories studies have been reviewed. No comp lications are noted to proceed. Potential risks including infection, bleeding, hematoma or seroma formation at the wound sites, nerve injury, injury to the spinal cord, dural puncture with persistent cerebrospinal fluid leak, malfunction of the pump, breakage and migration of the catheter, additional surgical procedures to correct these complications as well as persistent symptoms after the procedure and risks associated with anesthesia. Patient was also informed that the pump will require routine refills on an ongoing basis. Alternative treatments were also discussed. Patient's questions were answered and gives informed consent to proceed with the proposed procedure.
[2021-08-06] MEDS ORDERED: LIDOCAINE 2%/EPINEPHRINE 1:100,000 20ML INFIL ONE (08:54)
--- NOTE | 2021-08-06 09:13 | Operative Report ---
Post Operative Report Pre & Post Diagnosis Operation Date: 08/06/21 07:30 Pre-Op Diagnosis: End-of-life intrathecal baclofen pump Post-Op Diagnosis: Same I identified the patient and participated in the time-out.: Yes Procedure Operation Date: 08/06/21 08:00 Actual Proce Actual Procedures Replacement of Intrathecal Baclofen Pump(Left upper quadrant of abdomen)- Adal Pantoja MD, SMILEY Surgeon Adal Pantoja MD, SMILEY Automatic Equipment Technician none Estimated Blood Loss 5 Findings Consistent with Post-Op Diagnosis Specimens None Anesthesia Type General Complications none Disposition Accompanied Patient To Recovery: No Disposition: Recovery Room Description of Procedure INTRATHECAL PUMP REPLACEMENT PROCEDURE PERFORMED: Intrathecal pump replacement PREOPERATIVE DIAGNOSIS: End of life intrathecal pump POSTOPERATIVE DIAGNOSIS: Same. COMPLICATIONS: None. SURGEON: Dr. Mark Pantoja. ANESTHESIA: General/LMA MATERIAL FORWARDED TO THE LAB: Explanted pump. EBL: 5 ml IMPLANTED PUMP SIZE: 20 mL. MEDICATIONS PLACED IN THE PUMP: Baclofen 1000 mcg and clonidine 100 mcg/ml INDICATIONS: The patient had an end of life pump with less than 1 month prior to system failure, thus requiring replacement. The patient was explained the risks, benefits, alternatives of the procedure and agreed to proceed as above. Informed consent was obtained and witnessed. A time out was performed after the patient was brought into the Operating Room. Antibiotics were given. The patient was then induced with general anesthesia without complications and was placed in the supine. The skin was prepped with DuraPrep, betadiene and draped in sterile fashion. The existing pump was identified and using a scalpel, electro cautery, and blunt dissection, the existing pump was exposed. The four retaining sutures were removed and the old pump was explanted. The catheter was disconnected from the old pump and free flowing CSF was noted. The new pump was opened and prepared according to [employer] standards and was filled with 19 mL of new medication of same type and concentration. The pump catheter was secured to the new pump and secured. The catheter access port was accessed and revealed free flowing CSF. Next, the pocket was irrigated with sterile normal saline with bacitracin. Hemostasis was checked. The new pump was placed into the pocket in the 12 O'clock position. The intrathecal pump was anchored in the pocket with 4-0 Prolene sutures. Both wounds were irrigated with bacitracin-containing normal saline. Both wounds were closed in similar fashion using continuous 0 STRATAFIX for deeper layer and running 3-0 STRATAFIX suture for subcuticular layer. Prineo dressing was applied to the incision. Abdominal binder was placed. At the conclusion of the procedure, the pump was re-interrogated and re programmed to deliver per hour of baclofen 152.2 mcg and clonidine 6.3 mcg/h The patient was allowed to emerge from general anesthesia and transported to the recovery room in stable condition uneventfully. The patient will follow up at [facility] pain clinic within 7 days for a wound check. I attest to the content of the Intraoperative Record and any orders documented therein. Any exceptions are noted below.
--- NOTE | 2021-08-06 10:10 | Anesthesiology Progress Note ---
Date of Service August 06, 2021 Anesthesia Post Procedure Vital Signs Vital Signs: Temp Pulse Pulse Pulse Resp BP Pulse Ox 08/06/21 09:55 97.9 F 80 16 141/81 H 94 08/06/21 09:45 78 12 132/72 100 08/06/21 09:35 80 17 133/72 100 08/06/21 09:26 97.2 F L 88 16 130/55 L 100 08/06/21 06:14 98.8 F 80 16 134/77 98 08/06/21 05:41 08/06/21 03:30 98.8 F 74 16 147/80 H 97 08/05/21 22:42 98.6 F 80 16 144/73 H 93 08/05/21 20:05 08/05/21 19:17 98.4 F 78 18 165/70 H 98 08/05/21 15:59 97.7 F 67 20 127/74 08/05/21 13:10 97.7 F 72 18 122/70 94 08/05/21 12:10 97.5 F L 67 18 126/70 95 08/05/21 11:31 97.5 F L 63 18 129/72 98 08/05/21 11:10 96.6 F L 66 12 145/71 H 98 08/05/21 10:45 96.8 F L 64 16 135/78 100 08/05/21 10:35 96.8 F L 74 27 H 104/79 100 08/05/21 10:25 71 15 126/69 98 08/05/21 10:15 77 23 126/94 100 Pulse Ox 08/06/21 09:55 08/06/21 09:45 08/06/21 09:35 08/06/21 09:26 08/06/21 06:14 08/06/21 05:41 93 08/06/21 03:30 08/05/21 22:42 08/05/21 20:05 93 08/05/21 19:17 08/05/21 15:59 08/05/21 13:10 08/05/21 12:10 08/05/21 11:31 08/05/21 11:10 08/05/21 10:45 08/05/21 10:35 08/05/21 10:25 08/05/21 10:15 Pain Intensity Right Hip: Pain Intensity: 6 Transfer of Care Handoff Completed per policy Notes Mental Status: alert / awake / arousable and participated in evaluation Patient Amnestic to Procedure: Yes Nausea / Vomiting: adequately controlled Pain: adequately controlled Airway Patency, RR, SpO2: stable & adequate BP & HR: stable & adequate Hydration State: stable & adequate Anesthetic Complications: no major complications apparent and Pt Satisfied with anesthetic care
[2021-08-06] MEDS: ACETAMINOPHEN 500 MG TAB PO SCH ×3 (10:35→20:44)
[2021-08-06] MEDS: ASPIRIN 81 MG ECTAB PO SCH ×2 (10:36→20:44)
[2021-08-06] MEDS: DOCUSATE SODIUM 100 MG CAP PO SCH ×2 (10:37→20:45)
[2021-08-06] MEDS: MEMANTINE HCL 10 MG TAB PO SCH ×2 (10:37→20:45)
[2021-08-06] MEDS: MULTIVITAMIN TAB PO SCH (10:37)
[2021-08-06] MEDS: CYANOCOBALAMIN (B-12) 500 MCG TABLET PO SCH (10:37)
--- NOTE | 2021-08-06 12:53 | Orthopedic Progress Note ---
Date of Service August 06, 2021 Assessment & Plan (1) Closed femur fracture: Plan: POD 1 - Pain control -Medical management -PT/OT. Partial WB on RLE -ASA po bid -Pain management as written Admission and Anticipated Discharge Date Admission Date: August 04, 2021 Subjective POD 1 Pt sitting up in bed. Awake and alert. Returned from the OR earlier in the day from having her intrathecal pump battery replaced. Denies pain at this time. No complaint. Physical Exam Physical Exam: Silverlon dressing is C/D/I. Thigh soft, Calves soft, no palpable cord. Right sided hemiparesis. Results & Data ([facility]) Vital Signs (Past 12 Hours) Vital Signs Temp Pulse Pulse Resp BP Pulse Ox Pulse Ox 08/06/21 11:10 36.6 C 84 16 142/75 H 94 08/06/21 10:45 36.7 C 87 14 148/77 H 94 08/06/21 10:18 37.0 C 87 14 135/74 96 08/06/21 09:55 36.6 C 80 16 141/81 H 94 08/06/21 09:45 78 12 132/72 100 08/06/21 09:35 80 17 133/72 100 08/06/21 09:26 36.2 C L 88 16 130/55 L 100 08/06/21 06:14 37.1 C 80 16 134/77 98 08/06/21 05:41 93 08/06/21 03:30 37.1 C 74 16 147/80 H 97 (1) Closed femur fracture Encounter type: initial encounter Femur location: unspecified portion of femur Fracture morphology: other fracture Laterality: right Qualified Code(s): S72.8X1A - Other fracture of right femur, initial encounter for closed fracture
[2021-08-06 14:44] LABS: Hematocrit (blood only) 38.2 % (37-47); Mean Corpuscular Hemoglobin 30.4 pg (25-34); Mean Corpuscular Volume 89.5 fL (80-100); Mean Platelet Volume 10.5 fL (7.4-10.4); Platelet Count 377 K/uL (130-400); RDW Coefficient of Variation 13.2 % (11.5-14.5); RDW Standard Deviation 42.9 fL (36.4-46.3); Red Blood Count 4.27 M/uL (4.2-5.4); White Blood Count 8.89 K/uL (4.8-10.8)
[2021-08-06 15:21] LABS: BUN Creatinine Ratio 13.6 (10-20); Calcium 9.3 mg/dl (8.5-10.1); Creatinine Clr Calc Pharmacy 110.1 ml/min; Est GFR (African American) 122.8 ml/min; Est GFR (Non-African American) 105.9 ml/min
[2021-08-06] MEDS: DONEPEZIL HCL 10 MG TAB PO SCH (20:44)
[2021-08-06] MEDS: SENNA 8.6 MG TAB PO SCH (20:45)
--- NOTE | 2021-08-06 22:20 | Hospitalist Progress Note ---
Date of Service August 06, 2021 Assessment & Plan (1) Closed femur fracture: Plan: Osteoporotic fracture Vitamin D level 106 in May - no need to repeat this. Acetaminophen 1g PO TID Tramadol 50-100mg PO q4h PRN CXR - no acute active disease, EKG - NSR with non-specific ST abnormality POD#1 Intramedullary Edi Femur Right performed by Dr Cowart VTE and Abx prophylaxis per orthopedics (2) Fall: Plan: Secondary to prior right hemiparesis Will need PT/OT and rehab post operatively - PWB 50% RLE (3) Hyponatremia: Plan: Suspect due to LR given yesterday. Agree with NSS post operatively. Monitor with BMP in AM. (4) Osteoporosis: Plan: Femur total right T-2.4, left T-2.5 Recommend starting bisphosphonate therapy with PCP after fracture healing. (5) Acute hypokalemia: Plan: KCl 20 meq IV yesterday; now resolved. (6) Chronic constipation with overflow: Plan: Noted history of this. Monitor for constipation. Continue laxatives as ordered by orthopedics. (7) Hemiplegia: Plan: Needs AFO right foot brace on ambulation and cane at baseline. On Aricept and memantine for reduced cognitive functioning, high chance of delirium and worsening expressive dysphasia while inpatient and on opiate pain medications. POD #0 Baclofen pump replacement Plan: VTE Prophylaxis - per orthopedics Diet - regular Disposition - continue on med/surg, medically stable for discharge pending placement Admission and Anticipated Discharge Date Admission Date: August 04, 2021 Subjective Managed to get out of bed to chair today with physical therapy. No chest pain, shortness of breath or dizziness. Baclofen pump changed this morning. Struggling with 50% weight bearing as she cannot use her right arm. Certainly will need rehabilitation on discharge. She reports pain under control. Review of Systems Review of Systems: All systems reviewed & are unremarkable except as noted in Subjective Physical Exam Constitutional: WD/WN, vitals as above no acute distress ENMT: external ear and nose normal, oropharynx normal Respiratory: normal respiratory effort, lungs clear to auscultation Cardiovascular: RRR, no murmur, no edema Gastrointestinal (Abdomen): Percussion/Palpation: abdomen soft; abdomen nontender Skin: no rashes, warm and dry Neurologic: awake; + does not move all extremities (no movement of right side) and not confused Speech / Cognition: + expressive aphasia (mild); no receptive aphasia Motor/Sensory: + sensory deficit (numbness on right sided extremities); no tremor Psychiatric: A+Ox3, euthymic affect Results & Data Results & Data ([facility]) Vital Signs (Past 12 Hours) Vital Signs Temp Pulse Resp BP Pulse Ox 08/06/21 15:12 36.8 C 95 H 16 146/78 H 97 08/06/21 13:10 94 H 16 152/80 H 95 08/06/21 11:10 36.6 C 84 16 142/75 H 94 08/06/21 10:45 36.7 C 87 14 148/77 H 94 PG Care Time/CCT Total # of Minutes Spent Total Time Spent with Patient: Total time spent is greater than 50% in coordination of care (as documented) at patient's floor/unit and/or counseling patient: Coding Level of Care Code 77648 Subseq Hosp Care Lvl 2 Diagnoses Closed femur fracture S72.8X1A Encounter type: initial encounter Femur location: unspecified portion of femur Fracture morphology: other fracture Laterality: right Fall W19.XXXA Encounter type: initial encounter Hyponatremia E87.1 Osteoporosis M81.0 Acute hypokalemia E87.6 Chronic constipation with overflow K59.09 Hemiplegia G81.90 Hemiplegia etiology: late effect of cerebrovascular disease Hemiplegia laterality: right dominant side Hemiplegia type: spastic (1) Closed femur fracture Encounter type: initial encounter Femur location: unspecified portion of femur Fracture morphology: other fracture Laterality: right Qualified Code(s): S72.8X1A - Other fracture of right femur, initial encounter for closed fracture (2) Hemiplegia Hemiplegia etiology: late effect of cerebrovascular disease Hemiplegia laterality: right dominant side Hemiplegia type: spastic (3) Fall Encounter type: initial encounter Qualified Code(s): W19.XXXA - Unspecified fall, initial encounter
[2021-08-07] MEDS: ACETAMINOPHEN 500 MG TAB PO SCH ×3 (08:23→21:36)
[2021-08-07] MEDS: CYANOCOBALAMIN (B-12) 500 MCG TABLET PO SCH (08:25)
[2021-08-07] MEDS: ASPIRIN 81 MG ECTAB PO SCH ×2 (08:25→21:37)
[2021-08-07] MEDS: DOCUSATE SODIUM 100 MG CAP PO SCH ×2 (08:26→21:37)
[2021-08-07] MEDS: MULTIVITAMIN TAB PO SCH (08:26)
[2021-08-07] MEDS: MEMANTINE HCL 10 MG TAB PO SCH ×2 (08:26→21:37)
--- NOTE | 2021-08-07 09:00 | Pain Management Progress Note ---
Date of Service August 07, 2021 Assessment & Plan (1) 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 (CVA): (2) Presence of intrathecal pump: Plan: 1. Continue abdominal binder use 29/09 2. Aquacel dressing should remain in place pending her follow-up visit in the pain clinic in 1 week 3. No adjustment to intrathecal dose at this time 4. Follow-up in pain clinic in 1 week or before as needed. Pain service will sign off on patient at this time. Admission and Anticipated Discharge Date Admission Date: August 04, 2021 Subjective Ms. Tamayo is POD #1 status post intrathecal pump revision/replacement due to end-of-life battery status. She is reporting minimal incisional site soreness. She denies any difficulties with breakthrough spasm indicating her spasms remain adequately controlled and similar to prior. Patient is wearing abdominal binder. She has no constitutional complaints at this time. Plan of care discussed with Dr. Pantoja. Pain Assessment Pain Assessment Full Body Front + Back: 1. Left lower quadrant incisional site status post intrathecal pump revision/replacement Pain scale - at its best (0-10): 1 Pain scale - at its worst (0-10): 3 Physical Exam Physical Exam: General: Patient lying quietly upon entering the room in no acute distress. Patient has some expressive aphasia but communication was effective. Abdomen: Abdominal binder was in place which was removed for visual inspection. Aquacel dressing remains in place which was not removed. There is no tenderness to palpation over the incisional site. There is no fluctuance to the wound and no obvious discharge through the Aquacel dressing. Extremities: Patient has no breakthrough spasticity appreciated. Neurologic: Cranial nerves grossly intact. Ambulatory function not witnessed.
[2021-08-07 09:15] LABS: BUN Creatinine Ratio 15.2 (10-20); Creatinine Clr Calc Pharmacy 105.3 ml/min; Est GFR (Non-African American) 104.4 ml/min; Potassium 2.8 mmol/L (3.5-5.1)
--- NOTE | 2021-08-07 12:50 | Hospitalist Progress Note ---
Date of Service August 07, 2021 Assessment & Plan (1) Closed femur fracture: Plan: Osteoporotic fracture Vitamin D level 106 in May - no need to repeat this. Acetaminophen 1g PO TID Tramadol 50-100mg PO q4h PRN CXR - no acute active disease, EKG - NSR with non-specific ST abnormality POD#2 Intramedullary Edi Femur Right performed by Dr Cowart VTE and Abx prophylaxis per orthopedics (2) Fall: Plan: Secondary to prior right hemiparesis Will need PT/OT and rehab post operatively - PWB 50% RLE (3) Hyponatremia: Plan: Resolved with NSS (4) Osteoporosis: Plan: Femur total right T-2.4, left T-2.5 Recommend starting bisphosphonate therapy with PCP after fracture healing. (5) Acute hypokalemia: Plan: KCL 40meq PO today. Repeat BMP tomorrow. (6) Chronic constipation with overflow: Plan: Noted history of this. Monitor for constipation. Continue laxatives as ordered by orthopedics. (7) Hemiplegia: Plan: Needs AFO right foot brace on ambulation and cane at baseline. On Aricept and memantine for reduced cognitive functioning, high chance of delirium and worsening expressive dysphasia while inpatient and on opiate pain medications. POD #1 Baclofen pump replacement Abdominal binder for 2 weeks Plan: VTE Prophylaxis - per orthopedics Diet - regular Disposition - continue on med/surg, medically stable for discharge pending placement Admission and Anticipated Discharge Date Admission Date: August 04, 2021 Subjective No concerns or questions. Awaiting rehab placement at this time. Potassium 2.8 this morning. Review of Systems Review of Systems: All systems reviewed & are unremarkable except as noted in Subjective Physical Exam Constitutional: WD/WN, vitals as above no acute distress ENMT: external ear and nose normal, oropharynx normal Respiratory: normal respiratory effort, lungs clear to auscultation Cardiovascular: RRR, no murmur, no edema Gastrointestinal (Abdomen): Percussion/Palpation: abdomen soft; abdomen nontender Skin: no rashes, warm and dry Neurologic: awake; + does not move all extremities (no movement of right side) and not confused Speech / Cognition: + expressive aphasia (mild); no receptive aphasia Motor/Sensory: + sensory deficit (numbness on right sided extremities); no tremor Psychiatric: A+Ox3, euthymic affect Results & Data Results & Data ([facility]) Vital Signs (Past 12 Hours) Vital Signs Temp Pulse Resp BP Pulse Ox 08/07/21 07:37 36.5 C 78 16 156/66 H 97 08/07/21 04:23 36.7 C 73 15 134/76 97 PG Care Time/CCT Total # of Minutes Spent Total Time Spent with Patient: Total time spent is greater than 50% in coordination of care (as documented) at patient's floor/unit and/or counseling patient: Coding Level of Care Code 08318 Subseq Hosp Care Lvl 1 Diagnoses Closed femur fracture S72.8X1A Encounter type: initial encounter Femur location: unspecified portion of femur Fracture morphology: other fracture Laterality: right Fall W19.XXXA Encounter type: initial encounter Hyponatremia E87.1 Osteoporosis M81.0 Acute hypokalemia E87.6 Chronic constipation with overflow K59.09 Hemiplegia G81.90 Hemiplegia etiology: late effect of cerebrovascular disease Hemiplegia laterality: right dominant side Hemiplegia type: spastic (1) Closed femur fracture Encounter type: initial encounter Femur location: unspecified portion of femur Fracture morphology: other fracture Laterality: right Qualified Code(s): S72.8X1A - Other fracture of right femur, initial encounter for closed fracture (2) Hemiplegia Hemiplegia etiology: late effect of cerebrovascular disease Hemiplegia laterality: right dominant side Hemiplegia type: spastic (3) Fall Encounter type: initial encounter Qualified Code(s): W19.XXXA - Unspecified fall, initial encounter
[2021-08-07] MEDS ORDERED: POTASSIUM CHLORIDE CRTAB 20 MEQ TABCR PO STA (12:55)
--- NOTE | 2021-08-07 14:30 | Orthopedic Progress Note ---
Date of Service August 07, 2021 Assessment & Plan (1) Closed femur fracture: Plan: POD 1 -Medical management -PT/OT. Partial WB on RLE -ASA po bid -Pain management as written Orthopedics will sign off at this time. Instructions will be placed in the discharge section. Please call with any questions. Admission and Anticipated Discharge Date Admission Date: August 04, 2021 Subjective Postop day 2 Patient sitting up in bed awake and alert. No complaints. Asking about how long she has to wear her compression support around her waist. I discussed with Dr. Romo and he would like her to continue to wear it regularly for 2 weeks. Physical Exam Physical Exam: Silverlon is clean, dry, and intact. There is no drainage noted in the dressing window. Thigh is soft. No erythema around the dressing. Results & Data ([facility]) Vital Signs (Past 12 Hours) Vital Signs Temp Pulse Resp BP Pulse Ox 08/07/21 07:37 36.5 C 78 16 156/66 H 97 08/07/21 04:23 36.7 C 73 15 134/76 97 (1) Closed femur fracture Encounter type: initial encounter Femur location: unspecified portion of femur Fracture morphology: other fracture Laterality: right Qualified Code(s): S72.8X1A - Other fracture of right femur, initial encounter for closed fracture
[2021-08-07] MEDS: DONEPEZIL HCL 10 MG TAB PO SCH (21:37)
[2021-08-07] MEDS: SENNA 8.6 MG TAB PO SCH (21:38)
[2021-08-08] MEDS: DOCUSATE SODIUM 100 MG CAP PO SCH ×3 (08:53→20:13)
[2021-08-08] MEDS: CYANOCOBALAMIN (B-12) 500 MCG TABLET PO SCH (08:53)
[2021-08-08] MEDS: ASPIRIN 81 MG ECTAB PO SCH ×2 (08:53→20:14)
[2021-08-08] MEDS: MEMANTINE HCL 10 MG TAB PO SCH ×2 (08:53→20:14)
[2021-08-08] MEDS: MULTIVITAMIN TAB PO SCH (08:53)
[2021-08-08] MEDS: ACETAMINOPHEN 500 MG TAB PO SCH ×3 (08:54→20:15)
--- NOTE | 2021-08-08 13:03 | Hospitalist Progress Note ---
Date of Service August 08, 2021 Assessment & Plan (1) Closed femur fracture: Plan: Osteoporotic fracture Vitamin D level 106 in May - no need to repeat this. Acetaminophen 1g PO TID Tramadol 50-100mg PO q4h PRN CXR - no acute active disease, EKG - NSR with non-specific ST abnormality S/p Intramedullary Edi Femur Right performed by Dr Cowart on 08/06. VTE and Abx prophylaxis per orthopedics. - Orthopedics has signed off. Ready for discharge. (2) Fall: Plan: Secondary to prior right hemiparesis Will need PT/OT and rehab post operatively - PWB 50% RLE (3) Hyponatremia: Plan: Resolved with NSS (4) Osteoporosis: Plan: Femur total right T-2.4, left T-2.5 Recommend starting bisphosphonate therapy with PCP after fracture healing. (5) Acute hypokalemia: Plan: KCL 40meq PO today. Repeat BMP tomorrow. - Not drawn; will order now. (6) Chronic constipation with overflow: Plan: Noted history of this. Monitor for constipation. Continue laxatives as ordered by orthopedics. (7) Hemiplegia: Plan: Needs AFO right foot brace on ambulation and cane at baseline. On Aricept and memantine for reduced cognitive functioning, high chance of delirium and worsening expressive dysphasia while inpatient and on opiate pain medications. POD #1 Baclofen pump replacement Abdominal binder for 2 weeks Plan: VTE Prophylaxis - per orthopedics; ASA 81 mg PO BID Admission and Anticipated Discharge Date Admission Date: August 04, 2021 Subjective No issues today. Wants to get to rehab. Reports no fevers/chills, chest pain, shortness of breath, abdominal pain, nausea, or vomiting. Physical Exam Constitutional: WD/WN, vitals as above Eyes: EOM intact bilaterally; no conjunctival abnormality ENMT: external ear and nose normal, oropharynx normal Neck: trachea midline, no thyromegaly normal visual inspection Respiratory: normal respiratory effort, lungs clear to auscultation no respiratory distress Cardiovascular: RRR, no murmur, no edema Gastrointestinal (Abdomen): Inspection/Auscultation: abdomen normal to inspection; abdomen not distended Musculoskeletal: no cyanosis or clubbing, extremities motor strength 5/5 Skin: no rashes, warm and dry Neurologic: moves all extremities and awake Psychiatric: Orientation: alert, oriented to person and cooperative Results & Data Results & Data ([facility]) Vital Signs (Past 12 Hours) Vital Signs Temp Pulse Resp BP Pulse Ox Pulse Ox 08/08/21 07:41 36.9 C 74 16 149/79 H 97 08/08/21 03:32 98 PG Care Time/CCT Total # of Minutes Spent Total Time Spent with Patient: Total time spent is greater than 50% in coordination of care (as documented) at patient's floor/unit and/or counseling patient: Coding Level of Care Code 14082 Subseq Hosp Care Lvl 2 Diagnoses Closed femur fracture S72.8X1A Encounter type: initial encounter Femur location: unspecified portion of femur Fracture morphology: other fracture Laterality: right Fall W19.XXXA Encounter type: initial encounter Hyponatremia E87.1 Osteoporosis M81.0 Acute hypokalemia E87.6 Chronic constipation with overflow K59.09 Hemiplegia G81.90 Hemiplegia type: spastic Hemiplegia etiology: late effect of cerebrovascular disease Hemiplegia laterality: right dominant side (1) Closed femur fracture Encounter type: initial encounter Femur location: unspecified portion of femur Fracture morphology: other fracture Laterality: right Qualified Code(s): S72.8X1A - Other fracture of right femur, initial encounter for closed fracture (2) Fall Encounter type: initial encounter Qualified Code(s): W19.XXXA - Unspecified fall, initial encounter (3) Hemiplegia Hemiplegia type: spastic Hemiplegia etiology: late effect of cerebrovascular disease Hemiplegia laterality: right dominant side
[2021-08-08 13:52] LABS: BUN Creatinine Ratio 21.3 (10-20); Calcium 9.8 mg/dl (8.5-10.1); Est GFR (African American) 120.1 ml/min; Est GFR (Non-African American) 103.7 ml/min; Potassium 3.1 mmol/L (3.5-5.1)
[2021-08-08] MEDS: SENNA 8.6 MG TAB PO SCH (20:13)
[2021-08-08] MEDS: DONEPEZIL HCL 10 MG TAB PO SCH (20:14)
[2021-08-09 08:16] LABS: BUN Creatinine Ratio 27.7 (10-20); Calcium 9.2 mg/dl (8.5-10.1); Est GFR (African American) 120.1 ml/min; Est GFR (Non-African American) 103.7 ml/min; Potassium 3.1 mmol/L (3.5-5.1)
[2021-08-09] MEDS: MULTIVITAMIN TAB PO SCH (09:15)
[2021-08-09] MEDS: ACETAMINOPHEN 500 MG TAB PO SCH ×3 (09:15→20:36)
[2021-08-09] MEDS: MEMANTINE HCL 10 MG TAB PO SCH ×2 (09:17→20:37)
[2021-08-09] MEDS: CYANOCOBALAMIN (B-12) 500 MCG TABLET PO SCH (09:17)
[2021-08-09] MEDS: ASPIRIN 81 MG ECTAB PO SCH ×2 (09:17→20:37)
[2021-08-09] MEDS: DOCUSATE SODIUM 100 MG CAP PO SCH ×2 (09:17→20:37)
--- NOTE | 2021-08-09 17:33 | Hospitalist Progress Note ---
Date of Service August 09, 2021 Assessment & Plan (1) Closed femur fracture: Plan: Osteoporotic fracture Vitamin D level 106 in May - no need to repeat this. Acetaminophen 1g PO TID Tramadol 50-100mg PO q4h PRN CXR - no acute active disease, EKG - NSR with non-specific ST abnormality S/p Intramedullary Edi Femur Right performed by Dr Cowart on 08/06. VTE and Abx prophylaxis per orthopedics. Awaiting for placement, discussed with the case folder is still waiting for insurance authorization (2) Fall: Plan: Secondary to prior right hemiparesis - PWB 50% RLE (3) Hyponatremia: Plan: Resolved with NSS (4) Osteoporosis: Plan: Femur total right T-2.4, left T-2.5 Recommend starting bisphosphonate therapy with PCP after fracture healing. (5) Acute hypokalemia: Plan: Replaced (6) Chronic constipation with overflow: Plan: Continue laxative (7) Hemiplegia: Plan: Needs AFO right foot brace on ambulation and cane at baseline. On Aricept and memantine for reduced cognitive functioning, high chance of delirium and worsening expressive dysphasia while inpatient and on opiate pain medications. Baclofen pump replacement Abdominal binder for 2 weeks Plan: VTE Prophylaxis - per orthopedics; ASA 81 mg PO BID Admission and Anticipated Discharge Date Admission Date: August 04, 2021 Subjective No issues today. Wants to get to rehab. Reports no fevers/chills, chest pain, shortness of breath, abdominal pain, nausea, or vomiting. Review of Systems Review of Systems: General: No malaise no weakness Neck: No tenderness no pain HEENT: No eye discharge no ear discharge Chest: No chest pain, no palpitation GI: Not distended, no nausea no vomiting Extremities: No edema no tenderness Neurology: No headache no weakness Psychiatric: No depression no anxiety Physical Exam Constitutional: WD/WN, vitals as above no acute distress Eyes: PERRL, conjunctivae normal, anicteric sclerae EOM intact bilaterally; no conjunctival abnormality ENMT: external ear and nose normal, oropharynx normal Neck: trachea midline, no thyromegaly normal visual inspection Respiratory: normal respiratory effort, lungs clear to auscultation no respiratory distress Cardiovascular: RRR, no murmur, no edema Gastrointestinal (Abdomen): Inspection/Auscultation: abdomen normal to inspection; abdomen not distended Percussion/Palpation: abdomen soft; abdomen nontender Musculoskeletal: no cyanosis or clubbing, extremities motor strength 5/5 Skin: no rashes, warm and dry Neurologic: moves all extremities and awake; not confused Speech / Cognition: + expressive aphasia (mild); no receptive aphasia Motor/Sensory: + sensory deficit (numbness on right sided extremities); no tremor Cranial Nerves: PERRL, EOM intact bilaterally, normal facial strength, able to rotate head bilaterally, able to elevate shoulders bilaterally, no nystagmus and symmetric palate elevation Comatose Patient: + decorticate rigidity (RUE) Psychiatric: A+Ox3, euthymic affect Orientation: alert, oriented to person and cooperative Results & Data Results & Data ([facility]) Vital Signs (Past 12 Hours) Vital Signs Temp Pulse Resp BP Pulse Ox 08/09/21 15:33 36.7 C 85 18 132/54 L 96 08/09/21 07:53 37.0 C 75 18 129/73 97 PG Care Time/CCT Total # of Minutes Spent Total Time Spent with Patient: Total time spent is greater than 50% in coordination of care (as documented) at patient's floor/unit and/or counseling patient: Coding Level of Care Code 76517 Subseq Hosp Care Lvl 2 Diagnoses Closed femur fracture S72.8X1A Encounter type: initial encounter Femur location: unspecified portion of femur Fracture morphology: other fracture Laterality: right Fall W19.XXXA Encounter type: initial encounter Hyponatremia E87.1 Osteoporosis M81.0 Acute hypokalemia E87.6 Chronic constipation with overflow K59.09 Hemiplegia G81.90 Hemiplegia type: spastic Hemiplegia etiology: late effect of cerebrovascular disease Hemiplegia laterality: right dominant side (1) Closed femur fracture Encounter type: initial encounter Femur location: unspecified portion of femur Fracture morphology: other fracture Laterality: right Qualified Code(s): S72.8X1A - Other fracture of right femur, initial encounter for closed fracture (2) Fall Encounter type: initial encounter Qualified Code(s): W19.XXXA - Unspecified fall, initial encounter (3) Hemiplegia Hemiplegia type: spastic Hemiplegia etiology: late effect of cerebrovascular disease Hemiplegia laterality: right dominant side
[2021-08-09] MEDS: SENNA 8.6 MG TAB PO SCH (20:37)
[2021-08-09] MEDS: DONEPEZIL HCL 10 MG TAB PO SCH (20:37)
[2021-08-10] MEDS: MEMANTINE HCL 10 MG TAB PO SCH ×2 (08:39→20:23)
[2021-08-10] MEDS: ACETAMINOPHEN 500 MG TAB PO SCH ×3 (08:39→20:22)
[2021-08-10] MEDS: CYANOCOBALAMIN (B-12) 500 MCG TABLET PO SCH (08:39)
[2021-08-10] MEDS: MULTIVITAMIN TAB PO SCH (08:39)
[2021-08-10] MEDS: ASPIRIN 81 MG ECTAB PO SCH ×2 (08:39→20:23)
[2021-08-10] MEDS: DOCUSATE SODIUM 100 MG CAP PO SCH ×2 (08:40→20:23)
--- NOTE | 2021-08-10 17:54 | Hospitalist Progress Note ---
Date of Service August 10, 2021 Assessment & Plan (1) Closed femur fracture: Plan: Osteoporotic fracture Vitamin D level 106 in May - no need to repeat this. Acetaminophen 1g PO TID Tramadol 50-100mg PO q4h PRN CXR - no acute active disease, EKG - NSR with non-specific ST abnormality S/p Intramedullary Edi Femur Right performed by Dr Cowart on 08/06. VTE and Abx prophylaxis per orthopedics. Awaiting for placement, discussed with the upper caser is still waiting for insurance authorization (2) Fall: Plan: Secondary to prior right hemiparesis - PWB 50% RLE (3) Hyponatremia: Plan: Resolved with NSS (4) Osteoporosis: Plan: Femur total right T-2.4, left T-2.5 Recommend starting bisphosphonate therapy with PCP after fracture healing. (5) Acute hypokalemia: Plan: Replaced (6) Chronic constipation with overflow: Plan: Continue laxative (7) Hemiplegia: Plan: Needs AFO right foot brace on ambulation and cane at baseline. On Aricept and memantine for reduced cognitive functioning, high chance of delirium and worsening expressive dysphasia while inpatient and on opiate pain medications. Baclofen pump replacement Abdominal binder for 2 weeks Plan: VTE Prophylaxis - per orthopedics; ASA 81 mg PO BID Admission and Anticipated Discharge Date Admission Date: August 04, 2021 Subjective No issues today. Wants to get to rehab. Reports no fevers/chills, chest pain, shortness of breath, abdominal pain, nausea, or vomiting. Physical Exam Constitutional: WD/WN, vitals as above no acute distress Eyes: PERRL, conjunctivae normal, anicteric sclerae EOM intact bilaterally; no conjunctival abnormality ENMT: external ear and nose normal, oropharynx normal Neck: trachea midline, no thyromegaly normal visual inspection Respiratory: normal respiratory effort, lungs clear to auscultation no respiratory distress Cardiovascular: RRR, no murmur, no edema Gastrointestinal (Abdomen): Inspection/Auscultation: abdomen normal to inspection; abdomen not distended Percussion/Palpation: abdomen soft; abdomen nontender Musculoskeletal: no cyanosis or clubbing, extremities motor strength 5/5 Skin: no rashes, warm and dry Neurologic: moves all extremities and awake; not confused Speech / Cognition: + expressive aphasia (mild); no receptive aphasia Motor/Sensory: + sensory deficit (numbness on right sided extremities); no tremor Cranial Nerves: PERRL, EOM intact bilaterally, normal facial strength, able to rotate head bilaterally, able to elevate shoulders bilaterally, no nystagmus and symmetric palate elevation Comatose Patient: + decorticate rigidity (RUE) Psychiatric: A+Ox3, euthymic affect Orientation: alert, oriented to person and cooperative Results & Data Results & Data ([facility]) Vital Signs (Past 12 Hours) Vital Signs Temp Pulse Resp BP Pulse Ox 08/10/21 14:39 36.8 C 75 18 121/71 94 08/10/21 07:22 36.8 C 77 16 125/71 99 PG Care Time/CCT Total # of Minutes Spent Total Time Spent with Patient: Total time spent is greater than 50% in coordination of care (as documented) at patient's floor/unit and/or counseling patient: Coding Level of Care Code 36208 Subseq Hosp Care Lvl 2 Diagnoses Closed femur fracture S72.8X1A Encounter type: initial encounter Femur location: unspecified portion of femur Fracture morphology: other fracture Laterality: right Fall W19.XXXA Encounter type: initial encounter Hyponatremia E87.1 Osteoporosis M81.0 Acute hypokalemia E87.6 Chronic constipation with overflow K59.09 Hemiplegia G81.90 Hemiplegia etiology: late effect of cerebrovascular disease Hemiplegia laterality: right dominant side Hemiplegia type: spastic (1) Closed femur fracture Encounter type: initial encounter Femur location: unspecified portion of femur Fracture morphology: other fracture Laterality: right Qualified Code(s): S72.8X1A - Other fracture of right femur, initial encounter for closed fracture (2) Hemiplegia Hemiplegia etiology: late effect of cerebrovascular disease Hemiplegia laterality: right dominant side Hemiplegia type: spastic (3) Fall Encounter type: initial encounter Qualified Code(s): W19.XXXA - Unspecified fall, initial encounter
[2021-08-10] MEDS: SENNA 8.6 MG TAB PO SCH (20:23)
[2021-08-10] MEDS: DONEPEZIL HCL 10 MG TAB PO SCH (20:23)
[2021-08-11] MEDS: CYANOCOBALAMIN (B-12) 500 MCG TABLET PO SCH (09:02)
[2021-08-11] MEDS: ASPIRIN 81 MG ECTAB PO SCH ×2 (09:02→20:47)
[2021-08-11] MEDS: MULTIVITAMIN TAB PO SCH (09:02)
[2021-08-11] MEDS: MEMANTINE HCL 10 MG TAB PO SCH ×2 (09:02→20:47)
[2021-08-11] MEDS: DOCUSATE SODIUM 100 MG CAP PO SCH ×2 (09:02→20:47)
[2021-08-11] MEDS: ACETAMINOPHEN 500 MG TAB PO SCH ×3 (09:03→20:47)
[2021-08-11] MEDS: POLYETHYLENE (MIRALAX) 17 GM PACK PO PRN (14:02)
--- NOTE | 2021-08-11 16:51 | Hospitalist Progress Note ---
Date of Service August 11, 2021 Assessment & Plan (1) Closed femur fracture: Plan: Osteoporotic fracture Vitamin D level 106 in May - no need to repeat this. Acetaminophen 1g PO TID Tramadol 50-100mg PO q4h PRN CXR - no acute active disease, EKG - NSR with non-specific ST abnormality S/p Intramedullary Edi Femur Right performed by Dr Cowart on 08/06. VTE and Abx prophylaxis per orthopedics. Awaiting for placement, discussed with the shelter case manager is still waiting for insurance authorization (2) Fall: Plan: Secondary to prior right hemiparesis - PWB 50% RLE (3) Hyponatremia: Plan: Resolved with NSS (4) Osteoporosis: Plan: Femur total right T-2.4, left T-2.5 Recommend starting bisphosphonate therapy with PCP after fracture healing. (5) Acute hypokalemia: Plan: Replaced (6) Chronic constipation with overflow: Plan: Continue laxative (7) Hemiplegia: Plan: Needs AFO right foot brace on ambulation and cane at baseline. On Aricept and memantine for reduced cognitive functioning, high chance of delirium and worsening expressive dysphasia while inpatient and on opiate pain medications. Baclofen pump replacement Abdominal binder for 2 weeks Plan: VTE Prophylaxis - per orthopedics; ASA 81 mg PO BID Admission and Anticipated Discharge Date Admission Date: August 04, 2021 Subjective No issues today. Wants to get to rehab. Reports no fevers/chills, chest pain, shortness of breath, abdominal pain, nausea, or vomiting. Review of Systems Review of Systems: General: No malaise no weakness Neck: No tenderness no pain HEENT: No eye discharge no ear discharge Chest: No chest pain, no palpitation GI: Not distended, no nausea no vomiting Extremities: No edema no tenderness Neurology: No headache no weakness Psychiatric: No depression no anxiety Physical Exam Constitutional: WD/WN, vitals as above no acute distress Eyes: PERRL, conjunctivae normal, anicteric sclerae EOM intact bilaterally; no conjunctival abnormality ENMT: external ear and nose normal, oropharynx normal Neck: trachea midline, no thyromegaly normal visual inspection Respiratory: normal respiratory effort, lungs clear to auscultation no respiratory distress Cardiovascular: RRR, no murmur, no edema Gastrointestinal (Abdomen): Inspection/Auscultation: abdomen normal to inspection; abdomen not distended Percussion/Palpation: abdomen soft; abdomen nontender Musculoskeletal: no cyanosis or clubbing, extremities motor strength 5/5 Skin: no rashes, warm and dry Neurologic: moves all extremities and awake; not confused Speech / Cognition: + expressive aphasia (mild); no receptive aphasia Motor/Sensory: + sensory deficit (numbness on right sided extremities); no tremor Cranial Nerves: PERRL, EOM intact bilaterally, normal facial strength, able to rotate head bilaterally, able to elevate shoulders bilaterally, no nystagmus and symmetric palate elevation Comatose Patient: + decorticate rigidity (RUE) Psychiatric: A+Ox3, euthymic affect Orientation: alert, oriented to person and cooperative Results & Data Results & Data ([facility]) Vital Signs (Past 12 Hours) Vital Signs Temp Pulse Resp BP Pulse Ox 08/11/21 14:35 36.5 C 74 16 122/78 98 08/11/21 07:50 37 C 75 16 128/73 99 PG Care Time/CCT Total # of Minutes Spent Total Time Spent with Patient: Total time spent is greater than 50% in coordination of care (as documented) at patient's floor/unit and/or counseling patient: Coding Level of Care Code 84553 Subseq Hosp Care Lvl 1 Diagnoses Closed femur fracture S72.8X1A Encounter type: initial encounter Femur location: unspecified portion of femur Fracture morphology: other fracture Laterality: right Fall W19.XXXA Encounter type: initial encounter Hyponatremia E87.1 Osteoporosis M81.0 Acute hypokalemia E87.6 Chronic constipation with overflow K59.09 Hemiplegia G81.90 Hemiplegia type: spastic Hemiplegia etiology: late effect of cerebrovascular disease Hemiplegia laterality: right dominant side (1) Closed femur fracture Encounter type: initial encounter Femur location: unspecified portion of femur Fracture morphology: other fracture Laterality: right Qualified Code(s): S72.8X1A - Other fracture of right femur, initial encounter for closed fracture (2) Fall Encounter type: initial encounter Qualified Code(s): W19.XXXA - Unspecified fall, initial encounter (3) Hemiplegia Hemiplegia type: spastic Hemiplegia etiology: late effect of cerebrovascular disease Hemiplegia laterality: right dominant side
[2021-08-11] MEDS: DONEPEZIL HCL 10 MG TAB PO SCH (20:47)
[2021-08-11] MEDS: SENNA 8.6 MG TAB PO SCH (20:47)
[2021-08-12] MEDS: MEMANTINE HCL 10 MG TAB PO SCH ×2 (08:39→20:23)
[2021-08-12] MEDS: DOCUSATE SODIUM 100 MG CAP PO SCH ×2 (08:39→20:23)
[2021-08-12] MEDS: ACETAMINOPHEN 500 MG TAB PO SCH ×3 (08:39→20:23)
[2021-08-12] MEDS: CYANOCOBALAMIN (B-12) 500 MCG TABLET PO SCH (08:39)
[2021-08-12] MEDS: MULTIVITAMIN TAB PO SCH (08:39)
[2021-08-12] MEDS: ASPIRIN 81 MG ECTAB PO SCH ×2 (08:39→20:23)
[2021-08-12] MEDS: CLOPIDOGREL BISULFATE 75 MG TAB PO SCH (13:47)
[2021-08-12] MEDS: SENNA 8.6 MG TAB PO SCH (20:23)
[2021-08-12] MEDS: DONEPEZIL HCL 10 MG TAB PO SCH (20:23)
[2021-08-13] MEDS: CLOPIDOGREL BISULFATE 75 MG TAB PO SCH (08:04)
[2021-08-13] MEDS: CYANOCOBALAMIN (B-12) 500 MCG TABLET PO SCH (08:04)
[2021-08-13] MEDS: ASPIRIN 81 MG ECTAB PO SCH ×2 (08:04→20:42)
[2021-08-13] MEDS: MULTIVITAMIN TAB PO SCH (08:04)
[2021-08-13] MEDS: MEMANTINE HCL 10 MG TAB PO SCH ×2 (08:04→20:42)
[2021-08-13] MEDS: DOCUSATE SODIUM 100 MG CAP PO SCH ×2 (08:07→20:43)
--- NOTE | 2021-08-13 09:05 | Pain Management Progress Note ---
Date of Service August 13, 2021 Assessment & Plan (1) Closed femur fracture: Encounter type: initial encounter Femur location: unspecified portion of femur Fracture morphology: other fracture Laterality: right Qualified Code(s): S72.8X1A - Other fracture of right femur, initial encounter for closed fracture (2) 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 (CVA): (3) Presence of intrathecal pump: Plan: 1. Incision appears to be healing well. Dressing was changed today. She will required daily dry dressing changes for at least one week. 2. She is scheduled for a 2 week wound check on 08/20/21. She does also have a brain MRI and pump check in our building the same day. Contact our office with any questions or concerns. Admission and Anticipated Discharge Date Admission Date: August 04, 2021 Martha Tamayo is a 65-year-old female that is status post intrathecal pump replacement 1 week ago. She did also fall and sustain a right hip fracture and subsequent replacement. She plans for discharge to [facility] for rehab today. Spasticity is well controlled and has not required the use of oral baclofen. Has an external catheter in place. No constipation, drowsiness. Physical Exam Physical Exam: GENERAL: This is a 65 year old female. She seems comfortable in the hospital bed. HEAD/FACE: Normocephalic and atraumatic. EYES: No drainage or conjunctival injection. ENT: Nose without bleeding or discharge. Oral mucosa moist. NECK: Full ROM without apparent pain. No swelling or masses noted. RESPIRATORY: Patient with unlabored breathing. No signs of respiratory distress. CHEST/AXILLA: Chest movement symmetrical. No deformities noted. BACK: Moves without difficulty ABDOMEN: Intrathecal pump is located in the left lower abdomen. No mobility or tenderness. SKIN: Aquacel dressing was removed and the incision appears to be healing well. Gauze and tape was placed over the incision. MS/EXTREMITY: No spontaneous spasticity. Chronic flexion contracture of the right arm. NEURO: Alert and appears oriented. Speech is fluent. Cranial Nerves are grossly intact. She is chronically confused which has been gradually progressing. Difficulty finding her words. PSYCH: Alert, pleasant, affect is calm
[2021-08-13] MEDS: ACETAMINOPHEN 500 MG TAB PO SCH ×3 (10:16→20:43)
--- NOTE | 2021-08-13 18:32 | Discharge Summary ---
Date of Service August 13, 2021 Admission HPI Per Admitting Provider Denise Tamayo is a 65 year old female with right sided hemiparesis due to prior stroke 22 years ago who presents to the ER with right hip pain following a fall. Patient seen with her friend Peter in the room, she lives alone in her house. She denies any dizziness, shortness of breath or chest pain prior to falling. She has had 4 prior falls related to her right sided hemiparesis and subsequent ambulatory dysfunction. She wears a brace due to chronic right foot drop and walks with a cane. She has chronic mild expressive dysphasia and cognitive decline for which she takes Aricept and memantine. Today around 8:45am this morning she fell while holding a dog bowl and her cane while walking out the door onto her deck she fell the 4 inch drop and landed on her right side. She denies hitting her head, neck or loosing consciousness. She called for help and someone called EMS for her to bring her to the ER. She reports only having pain in her right groin, worse on movement, severity 9/10 even after a total 10mg morphine. Of note she is due a baclofen pump change on Thursday and therefore has been off her usual clopidogrel for the last 2 days. She has a significant history of CVA 22 years ago with residual chronic expressive dysphasia and right hemiparesis with minimal movement in her right arm and numbness down the right side of her body. She has never had a heart attack and no chest pain or shortness of breath on exertion. She last ate a waffle at 6:30am and last drank at 7am. She was referred to medicine for admission and ongoing management of right subtrochanteric femoral fracture. Principal Diagnosis displaced subtrochanteric fracture of the right proximal femur. Discharge Exam Constitutional WD/WN, vitals as above no acute distress Eyes PERRL, conjunctivae normal, anicteric sclerae EOM intact bilaterally; no conjunctival abnormality ENMT external ear and nose normal, oropharynx normal Neck trachea midline, no thyromegaly normal visual inspection Respiratory normal respiratory effort, lungs clear to auscultation no respiratory distress Cardiovascular RRR, no murmur, no edema Gastrointestinal (Abdomen) Inspection/Auscultation: abdomen normal to inspection; abdomen not distended Percussion/Palpation: abdomen soft; abdomen nontender Musculoskeletal no cyanosis or clubbing, extremities motor strength 5/5 Skin no rashes, warm and dry Neurologic moves all extremities and awake; not confused Speech / Cognition: + expressive aphasia (mild); no receptive aphasia Motor/Sensory: + sensory deficit (numbness on right sided extremities); no tremor Cranial Nerves: PERRL, EOM intact bilaterally, normal facial strength, able to rotate head bilaterally, able to elevate shoulders bilaterally, no nystagmus and symmetric palate elevation Comatose Patient: + decorticate rigidity (RUE) Psychiatric A+Ox3, euthymic affect Orientation: alert, oriented to person and cooperative Discharge Data Allergies Allergy/AdvReac Type Severity Reaction Status Date / Time cephalexin Allergy Severe Anaphylaxis Verified 08/04/21 12:35 adhesive Allergy Mild Redness of Verified 08/06/21 09:47 Skin Penicillins AdvReac Mild nausea Verified 08/04/21 12:35 Consultations 08/04/21 11:58 ED Decision to Admit Stat 08/04/21 12:53 Consult Orthopedic Surgery Routine 08/04/21 13:03 Consult Pain Management Routine 08/04/21 17:56 Consult Anesthesiology Routine Procedures Performed Operation Date: 08/05/21 08:00 Actual Procedures p Intramedullary Edi Femur Right(Right) - Bryant Cowart, Operation Date: 08/06/21 07:30 Actual Procedures p Replacement of Intrathecal Baclofen Pump(Left) - Adal Pantoja MD, [facility] Ordered Studies 08/05/21 08:00 FL femur RT 2V Routine Hospital Course (1) Closed femur fracture: Osteoporotic fracture Vitamin D level 106 in May - no need to repeat this. Acetaminophen 1g PO TID Tramadol 50-100mg PO q4h PRN CXR - no acute active disease, EKG - NSR with non-specific ST abnormality S/p Intramedullary Edi Femur Right performed by Dr Cowart on 08/06. s/p Replacement of Intrathecal Baclofen Pump(Left upper quadrant of abdomen) by Dr Adal Pantoja, please called Dr. Cowart office for follow-up appointment The patient has a abdominal binder postoperatively after baclofen pump replacement, the abdominal binder can be removed after 1 week . She is scheduled for a 2 week wound check on 08/20/21. She does also have a brain MRI and pump check in our building the same day at Dr Adal Pantoja, office Patient needs bone density test for osteoporosis/osteopenia and outpatient basis and follow-up with (2) Fall: Secondary to prior right hemiparesis - PWB 50% RLE (3) Hyponatremia: Resolved with NSS (4) Osteoporosis: Femur total right T-2.4, left T-2.5 Recommend starting bisphosphonate therapy with PCP after fracture healing. (5) Acute hypokalemia: Replaced (6) Chronic constipation with overflow: Continue laxative (7) Hemiplegia: Needs AFO right foot brace on ambulation and cane at baseline. On Aricept and memantine for reduced cognitive functioning, high chance of delirium and worsening expressive dysphasia while inpatient and on opiate pain medications. Baclofen pump replacement Abdominal binder for 2 weeks, it can be removed on 08/21 VTE Prophylaxis - per orthopedics; ASA 81 mg PO BID Total Time Total Time Spent Total Time Spent (In Minutes): 45 Discharge Plan Discharge Items Patient Disposition: Transfer Longterm Fac Reason For Visit: HIP FRACTURE Discharge Diagnosis: right femur trochanteric fracture Condition on Discharge: Good Health Concerns: Osteoporosis,Osteopenia, needs outpatient follow-up for bone density test Activity: Resume your previous activity Lifting: Gradually increase as tolerated Bathing: No limitations Sexual Activity: When tolerated Exercise/Sports: None Driving/Machine Use: No limitations Weightbearing: Full weightbearing Non-emergency contact: Primary Care Provider Call non-emergency contact if: you have any medication questions and your symptoms worsen Follow-up/Referrals: Adal Pantoja MD, [facility] [Physician] - 08/13/21 2:30 pm (a second appointment has also been scheduled 08/20/21 @ 2:30pm for you.) Aaron Bowers MD [Primary Care Provider] - Diet: Regular and Heart Healthy Addtl Attending Provider Instructions: 1. Incision appears to be healing well. Dressing was changed today. She will required daily dry dressing changes for at least one week. 2. She is scheduled for a 2 week wound check on 08/20/21. She does also have a brain MRI and pump check in our building the same day. Pending Studies at Discharge: No Stand-Alone Forms: [facility] Skilled Items Patient informed of condition?: Yes DNR: Yes Discharge Level of Care: Skilled Communicable Disease: No Discharge Prognosis: Stable Lines: None Urinary Catheter: No Medications and DC Order Prescriptions: New sennosides [Senokot] 8.6 mg Tablet 17.2 mg PO HS Qty: 30 RF: 0 polyethylene glycol 3350 [Miralax] 17 gram Powder In Packet 17 g PO DAILY PRN (Reason: laxative effect) Qty: 60 RF: 0 aspirin 81 mg Tablet,Delayed Release (Dr/Ec) 81 mg PO BID Qty: 30 RF: 0 tramadol 50 mg Tablet 100 mg PO Q4H PRN (Reason: pain) Qty: 30 RF: 0 tramadol 50 mg Tablet 50 mg PO Q4H PRN (Reason: pain) Qty: 30 RF: 0 acetaminophen [Tylenol Extra Strength] 500 mg Tablet 1,000 mg PO TID Qty: 30 RF: 0 magnesium hydroxide [Milk of Magnesia] 400 mg/5 mL Suspension 30 ml PO Q6H PRN (Reason: constipation) Qty: 30 RF: 0 docusate sodium 100 mg Capsule 100 mg PO BID Qty: 60 RF: 0 Continued donepezil [Aricept] 10 mg tablet 10 mg PO HS RF: 0 celecoxib 200 mg capsule 200 mg PO QAM RF: 0 cyanocobalamin (vitamin B-12) [Vitamin B-12] 1,000 mcg tablet 1,000 mcg PO QAM RF: 0 clopidogrel 75 mg tablet 75 mg PO HS RF: 0 memantine 10 mg tablet 10 mg PO BID RF: 0 omega [id number] oil [Fish Oil] 1,000 mg (120 mg-180 mg) Capsule 2,000 mg PO QAM RF: 0 Vitamin B-6 50 mg capsule 50 mg PO WK RF: 0 baclofen 40,000 mcg/20mL (2,000 mcg/mL) Solution 0 mcg continuous intrathecal infusion UD RF: 0 Discharge Orders: Discharge Order (Routine); Ordered 08/14/21 Ordered By: Artur Ewing Admission Data Admit Date/Time: 08/04/21 12:12 Attending Provider: Artur Ewing Admit Provider: Evan Jin Primary Care Provider: Aaron Bowers Other Providers: Silvino Schmitt ; Bryant Cowart ; Adal Pantoja ; Katelin Restrepo [facility] ; Moses Pineda ; [facility] Coding Level of Care Code D/C DAY MANAGEMENT >30 MINS Diagnoses Closed femur fracture S72.8X1A Encounter type: initial encounter Femur location: unspecified portion of femur Fracture morphology: other fracture Laterality: right Fall W19.XXXA Encounter type: initial encounter Hyponatremia E87.1 Osteoporosis M81.0 Acute hypokalemia E87.6 Chronic constipation with overflow K59.09 Hemiplegia G81.90 Hemiplegia type: spastic Hemiplegia etiology: late effect of cerebrovascular disease Hemiplegia laterality: right dominant side
[2021-08-13] MEDS: DONEPEZIL HCL 10 MG TAB PO SCH (20:42)
[2021-08-13] MEDS: SENNA 8.6 MG TAB PO SCH (20:43)
[2021-08-13] MEDS: POLYETHYLENE (MIRALAX) 17 GM PACK PO PRN (20:45)
[2021-08-14] MEDS: ASPIRIN 81 MG ECTAB PO SCH (08:06)
[2021-08-14] MEDS: ACETAMINOPHEN 500 MG TAB PO SCH (08:06)
[2021-08-14] MEDS: DOCUSATE SODIUM 100 MG CAP PO SCH (08:06)
[2021-08-14] MEDS: CYANOCOBALAMIN (B-12) 500 MCG TABLET PO SCH (08:06)
[2021-08-14] MEDS: CLOPIDOGREL BISULFATE 75 MG TAB PO SCH (08:06)
[2021-08-14] MEDS: MEMANTINE HCL 10 MG TAB PO SCH (08:06)
[2021-08-14] MEDS: MULTIVITAMIN TAB PO SCH (08:06)
--- NOTE | 2021-08-14 15:52 | Hospitalist Progress Note ---
Date of Service August 14, 2021 Assessment & Plan (1) Closed femur fracture: Plan: Osteoporotic fracture Vitamin D level 106 in May - no need to repeat this. Acetaminophen 1g PO TID Tramadol 50-100mg PO q4h PRN CXR - no acute active disease, EKG - NSR with non-specific ST abnormality S/p Intramedullary Edi Femur Right performed by Dr Cowart on 08/06. s/p Replacement of Intrathecal Baclofen Pump(Left upper quadrant of abdomen) by Dr Adal Pantoja, please called Dr. Cowart office for follow-up appointment The patient has a abdominal binder postoperatively after baclofen pump replacement, the abdominal binder can be removed after 1 week . She is scheduled for a 2 week wound check on 08/20/21. She does also have a brain MRI and pump check in our building the same day at Dr Adal Pantoja, office Patient needs bone density test for osteoporosis/osteopenia and outpatient basis and follow-up with (2) Fall: Plan: Secondary to prior right hemiparesis - PWB 50% RLE (3) Hyponatremia: Plan: Resolved with NSS (4) Osteoporosis: Plan: Femur total right T-2.4, left T-2.5 Recommend starting bisphosphonate therapy with PCP after fracture healing. (5) Acute hypokalemia: Plan: Replaced (6) Chronic constipation with overflow: Plan: Continue laxative (7) Hemiplegia: Plan: Needs AFO right foot brace on ambulation and cane at baseline. On Aricept and memantine for reduced cognitive functioning, high chance of delirium and worsening expressive dysphasia while inpatient and on opiate pain medications. Baclofen pump replacement Abdominal binder for 2 weeks, it can be removed on 08/21 Plan: VTE Prophylaxis - per orthopedics; ASA 81 mg PO BID Admission and Anticipated Discharge Date Admission Date: August 04, 2021 Subjective Patient seen briefly as she was sitting in her wheelchair ready to be transferred to the [facility] facility. Her discharge was prepared yesterday. She has been medically and hemodynamically stable for discharge; however, we have been awaiting bed availability. Unfortunately there was no transportation available yesterday. Discharge was arranged for 10 AM today. I did evaluate the patient but she was already loaded up and being wheeled out the door at the time of my very brief assessment Review of Systems Review of Systems: All systems reviewed and are unremarkable except as noted in HPI and below Denies fevers, chills, headache, nasal congestion, sore throat, cough, chest pain, shortness of breath, palpitations, orthopnea, PND, abdominal pain, nausea, vomiting, diarrhea, constipation, dysuria, hematuria, frequency, back pain, joint pain or swelling, easy bruising or bleeding, skin lesions or rashes. Physical Exam Physical Exam: Brief and limited exam general: Resting comfortably in her wheelchair HEENT: Head is AT/NC. Buccal mucosa is moist and pink Neck: No JVD. Negative hepatojugular reflex Cardiac: RRR with 1/6 CALDERON. Binder around chest Lungs: CTA without W/R/R Abdomen: Normoactive X4. Soft and nontender in all quadrants. Extremities: No peripheral clubbing cyanosis or edema Neuro: A&O X4. Cranial nerves II through XII are grossly intact. No focal neuro deficits Skin: No obvious skin lesions or rashes Psych: Appropriate affect. Pleasant and cooperative Results & Data Results & Data ([facility]) Vital Signs (Past 12 Hours) Vital Signs Temp Pulse Pulse Resp BP Pulse Ox 08/14/21 09:43 36.6 C 80 69 16 117/73 98 08/14/21 09:25 36.6 C 80 69 16 117/73 98 08/14/21 07:00 36.6 C 69 16 117/73 98 PG Care Time/CCT Total # of Minutes Spent Total Time Spent with Patient: Total time spent is greater than 50% in coordination of care (as documented) at patient's floor/unit and/or counseling patient: Coding Level of Care Code 50059 Subs Hosp Care Lvl 1 Diagnoses Closed femur fracture S72.8X1A Encounter type: initial encounter Femur location: unspecified portion of femur Fracture morphology: other fracture Laterality: right Fall W19.XXXA Encounter type: initial encounter Hyponatremia E87.1 Osteoporosis M81.0 Acute hypokalemia E87.6 Chronic constipation with overflow K59.09 Hemiplegia G81.90 Hemiplegia type: spastic Hemiplegia etiology: late effect of cerebrovascular disease Hemiplegia laterality: right dominant side (1) Closed femur fracture Encounter type: initial encounter Femur location: unspecified portion of femur Fracture morphology: other fracture Laterality: right Qualified Code(s): S72.8X1A - Other fracture of right femur, initial encounter for closed fracture (2) Fall Encounter type: initial encounter Qualified Code(s): W19.XXXA - Unspecified fall, initial encounter (3) Hemiplegia Hemiplegia type: spastic Hemiplegia etiology: late effect of cerebrovascular disease Hemiplegia laterality: right dominant side
== END 2021-08-14 10:00 | DRG 481 ==
LOC: ED 10:47 → 3W 12:12 → SUATTDRO 12:12 → 3W 13:54

== ENCOUNTER 2023-09-28 16:09 | Inpatient (IN) ==
--- NOTE | 2023-09-28 16:37 | Emergency Department Note ---
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 Patient was found down. It is assumed that she fell according to EMS. Patient was covered in her own feces. Patient is unable to give any further information. Home Medications Medication Instructions Recorded Confirmed Type pyridoxine (vitamin B6) 50 mg 50 mg PO WK 08/01/20 09/28/23 History capsule (Vitamin B-6) baclofen 40,000 mcg/20 mL (2,000 0 mcg continuous intrathecal 08/04/21 09/28/23 History mcg/mL) intrathecal solution infusion UD baclofen 10 mg tablet 10 mg PO DAILY PRN spasms #90 tabs 12/01/22 09/28/23 Rx celecoxib 200 mg capsule 200 mg PO QAM #90 caps 03/20/23 09/28/23 Rx clopidogrel 75 mg tablet 75 mg PO HS #90 tabs 03/20/23 09/28/23 Rx donepezil 10 mg tablet 10 mg PO DAILY #90 tabs 03/20/23 09/28/23 Rx memantine 10 mg tablet 10 mg PO BID 90 days #180 tabs 03/20/23 09/28/23 Rx potassium chloride 10 mEq 10 meq PO DAILY 06/15/23 09/28/23 History capsule,extended release valacyclovir 500 mg tablet 500 mg PO BID PRN Other 06/15/23 09/28/23 History pregabalin 100 mg capsule 100 mg PO TID #270 caps 08/28/23 09/28/23 Rx duloxetine 30 mg capsule,delayed 30 mg PO DAILY #30 caps 09/22/23 09/28/23 Rx release (Cymbalta) atorvastatin 10 mg tablet 10 mg PO UD 09/28/23 09/28/23 History Allergies Allergy/AdvReac Type Severity Reaction Status Date / Time cephalexin Allergy Severe Anaphylaxis Verified 09/22/23 09:59 Penicillins AdvReac Mild nausea Verified 09/22/23 09:59 Past Med/Surg History Problem List (Updated 09/28/23 @ 20:08 by Reji Mchugh MD) Fall (Acute) Acute hyponatremia (Acute) Rhabdomyolysis (Acute) Failure to thrive in adult Hyponatremia Elevated troponin Rhabdomyolysis Unwitnessed fall Lumbar pain Hemiplegia Right side > wears AFO brace on RLE, no control of right arm Weight loss Aphasia due to disease due to b12 deficiency B12 deficiency expressive aphasia Hypokalemia Fall (on) (from) other stairs and steps, initial encounter Osteoarthritis Encounter for routine gynecological examination Aphasia, post-stroke Executive function deficit Hemiparesis affecting right side as late effect of cerebrovascular accident Presence of intrathecal pump Sacroiliac inflammation Carpal tunnel syndrome (Chronic) Neck pain (Acute) Lumbar postlaminectomy syndrome (Chronic) History of lumbar fusion (Chronic) X 2 Change in bowel habits History of cerebrovascular accident from left carotid artery occlusion involving left middle cerebral artery territory Aphasia as late effect of cerebrovascular accident History of CVA (cerebrovascular accident) (Chronic) 1998 large left MCA territory in setting of occluded left carotid potentially related to oral contraception at that time > chronic spastic right hemiparesis, flaccid upper limb and mild to moderate expressive aphasia > on plavix > follows with [place] [facility] History External constriction of left ring finger, initial encounter Sciatica Osteoporosis with fracture Hyperplastic colon polyp Ring or other jewelry causing external constriction, initial encounter Hyponatremia Fall Closed femur fracture Memory loss Left carotid artery occlusion Vasovagal syncope if not laying flat during blood draws Encounter for pre-operative examination Memory problem History of depression 1998 per pt Hypertension controlled, stable per pt Chronic constipation with overflow 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 (CVA) 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 (CVA) CVA (cerebral vascular accident) Laceration of eyebrow, right Head trauma Osteoporosis Stroke Surgical History Family history of reaction to anesthesia Mother: slow to wake History of gynecologic surgery Labial "removal" History of back surgery Lumbar fusion x2 History of colonoscopy History of tooth extraction History of tonsillectomy Family History Father Cancer Family history of esophageal cancer Other No pertinent family history Denies family history of Ovarian cancer Prostate cancer Diabetes Myocardial infarction Breast cancer Colorectal cancer Hypertension Social History Smoking Status: Never smoker Age Started Using Tobacco: 12; Age Quit Using Tobacco: 22; Second Hand Exposure: No; Do You Dip or Chew Tobacco: No; Hx Alcohol Use: Yes Alcohol type: beer Hx Substance Use: No Preferred Language: Nepali Communication Ability: Effective Communication Ability Comment: Expressive aphasia Visual Impairment: No Limitations [employer] 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 Beliefs That Will Affect Care: None marital status: Single Current Living Situation: Alone current occupational status: retired How many Children do You have: 0 Feels Safe at Home: Yes Childhood Exposure to Second-Hand Smoke: Yes caffeine: Yes (coffee) Dental Care, Regularly: Yes Physical Activity Frequency: Daily Seatbelt Use: always Sunscreen Use: Yes Assistive Devices: Cane Physical Exam Vital Signs Vital Signs - 24 hr 09/28/23 16:22 09/28/23 16:54 09/28/23 16:54 Temperature 36.8 C Temperature Source Oral Pulse Rate 95 H Pulse Rate [Apical] 84 Pulse Rhythm [Apical] Pulse Strength [Apical] Respiratory Rate 19 18 Respiratory Effort / Characteristics Non-Labored Spontaneous Non-Labored Spontaneous Respiratory Depth Normal Normal Respiratory Pattern Regular Regular Blood Pressure 138/81 Blood Pressure [Left Arm] 138/81 Blood Pressure Mean 100 Blood Pressure Mean [Left Arm] 100 Pulse Oximetry 95 95 94 Oxygen Delivery Method Room Air Room Air Room Air Sepsis Recent Fever Within 48 Hours No Sepsis New/Unexplained Change in Mental Status No Sepsis Action Taken by Nursing No Action Required 09/28/23 18:37 09/28/23 19:02 Temperature Temperature Source Pulse Rate 97 H Pulse Rate [Apical] 90 Pulse Rhythm [Apical] Regular Pulse Strength [Apical] Normal Respiratory Rate 18 Respiratory Effort / Characteristics Non-Labored Spontaneous Respiratory Depth Normal Respiratory Pattern Regular Blood Pressure Blood Pressure [Left Arm] 128/87 Blood Pressure Mean Blood Pressure Mean [Left Arm] 100 Pulse Oximetry 95 Oxygen Delivery Method Room Air Sepsis Recent Fever Within 48 Hours Sepsis New/Unexplained Change in Mental Status Sepsis Action Taken by Nursing Physical Exam EYES: Conjunctivae and EOM are normal. Pupils are equal, round, and reactive to light. Right eye exhibits no discharge. Left eye exhibits no discharge. No scleral icterus. NECK: Normal range of motion. Neck supple. No JVD present. No spinous process tenderness present. CV: Normal rate, regular rhythm, normal heart sounds and intact distal pulses. There is no peripheral edema. Palpable radial pulses bue. PULM/CHEST: Rhonchi bilaterally. ABD: The abdomen is soft. There is no tenderness. MUSC/SKEL: Pelvis stable. NEURO: Right-sided hemiparesis which is baseline for patient. Patient is having some expressive aphasia which is also apparently at baseline for the patient. Course Course 1619: The patient was evaluated in room A9. A complete history and physical exam was performed Cardiac monitoring: An order was placed for continuous cardiac monitoring. The monitor shows a rate of 90 with sinus rhythm interpreted by ak 1951: Vital signs stable. Imaging shows no acute traumatic injury. Labs are significant for sodium of 124 and total creatinine kinase of 11,667. [facility] team notified. Administered Medications Discontinued Medications Sodium Chloride (Nss) 1,000 mls @ 125 mls/hr IV .Q8H FREDO Stop: 10/28/23 16:44 Last Admin: 09/28/23 16:59 Dose: 125 mls/hr Documented By: QUANG Sodium Chloride (Nss) 1,000 mls @ 999 mls/hr IV .Q1H1M ONE Stop: 09/28/23 19:54 Last Admin: 09/28/23 19:20 Dose: 999 mls/hr Documented By: QUANG Ioversol (Optiray 320 100ml) 92 ml IV ONCE ONE Stop: 09/28/23 16:49 Last Admin: 09/28/23 16:48 Dose: 92 ml Documented By: ROLAND Medical Decision Making Laboratory Data Attestation: I reviewed the patient's lab results. 09/28/23 16:27 09/28/23 16:27 Lab Results 09/28/23 09/28/23 09/28/23 Range/Units 16:27 16:32 16:59 WBC 10.30 (4.8-10.8) K/ul RBC 5.31 (4.20-5.40) M/uL Hgb 16.3 H (12.0-16.0) g/dl POC Hgb 17.0 H (12.0-16.0) g/dl Hct 44.7 (37.0-47.0) % POC Hct 50 H (37-47) % MCV 84.2 (80.0-100.0) fL MCH 30.7 (25.0-34.0) pg MCHC 36.5 H (32.0-36.0) g/dL RDW Std Deviation 37.7 (36.4-46.3) fL RDW Coeff of Tera 12.3 (11.5-14.5) % Plt Count 391 (130-400) K/uL MPV 10.7 (9.4-12.4) fL Immature Gran % (Auto) 0.3 % Neut % (Auto) 81.4 % Lymph % (Auto) 8.3 % [place] % (Auto) 9.9 % Eos % (Auto) 0.0 % Baso % (Auto) 0.1 % Neut # (Auto) 8.38 H (1.40-6.50) K/uL Lymph # (Auto) 0.86 L (1.20-3.40) K/uL [place] # (Auto) 1.02 H (0.11-0.59) K/uL Eos # (Auto) 0.00 (0.00-0.50) K/uL Baso # (Auto) 0.01 (0.00-0.20) K/uL Immature Gran # (Auto) 0.03 (0.01-0.20) K/uL PT 10.8 (9.0-12.0) Seconds INR 1.0 (0.9-1.1) APTT 25 (21-31) Seconds PTT Ratio 0.9 VBG pH 7.39 (7.36-7.41) VBG pCO2 39 (38-50) mmHg VBG pO2 < 20 mmHg VBG HCO3 24 mmol/L VBG O2 Saturation < 60.0 % VBG Base Excess -1.2 mEq/L POC Sodium 124 L (135-144) mmol/L Sodium 124 L (136-145) mmol/L POC Potassium 3.7 (3.3-5.0) mmol/L Potassium 3.6 (3.5-5.1) mmol/L POC Chloride 88 L (101-112) mmol/L Chloride 89 L (98-107) mmol/L Carbon Dioxide 25 (21-32) mmol/L POC Total CO2 24 (24-31) mmol/L Anion Gap 10 (3-11) POC Anion Gap 16.0 (16-25) mmol/L POC BUN 19 H (7-18) mg/dl BUN 19 (6-23) mg/dl Creatinine 0.67 (0.6-1.2) mg/dl POC Creatinine 0.7 (0.6-1.3) mg/dl Est Cr Clr Drug Dosing 73.6 ml/min Est GFR ( Amer) 104.7 ml/min Est GFR (Non-Af Amer) 90.3 ml/min BUN/Creatinine Ratio 28.4 H (10-20) Glucose 96 (70-99(Fasting)) mg/dl POC Glucose (other) 100 H (70-99) mg/dl Osmolality 259 L (280-300) mOsm/kg Calcium 9.7 (8.6-10.3) mg/dl POC Ioniz Calcium Erendira 1.14 (1.12-1.32) mmol/l Magnesium 1.9 (1.7-2.4) mg/dl Total Creatine Kinase 78755 H (26-192) U/L Troponin I High Sens 26.0 H (0-14) pg/ml Lipase 6 L (11-82) U/L Procalcitonin 0.20 (0-0.5) ng/ml Urine Color Urine Appearance (Clear) Urine pH (4.5-7.5) Ur Specific Rosie (1.000-1.030) Urine Protein (Negative) Urine Glucose (UA) (Negative) Urine Ketones (Negative) Urine Blood (Negative) Urine Nitrite (Negative) Urine Bilirubin (Negative) Urine Urobilinogen (Negative) Ur Leukocyte Esterase (Negative) Urine WBC (Auto) (0-5) /hpf Urine RBC (Auto) (0-2) /hpf U Hyaline Cast (Auto) (0-2) /lpf U Epithel Cells (Auto) (0-2) /hpf Urine Bacteria (Auto) (None Seen) Urine Osmolality (500-800) mOsm/kg Ur Random Sodium mmol/L SARS-CoV-2, RNA, NAAT (NEGATIVE) 09/28/23 09/28/23 Range/Units 18:15 Unknown WBC (4.8-10.8) K/ul RBC (4.20-5.40) M/uL Hgb (12.0-16.0) g/dl POC Hgb (12.0-16.0) g/dl Hct (37.0-47.0) % POC Hct (37-47) % MCV (80.0-100.0) fL MCH (25.0-34.0) pg MCHC (32.0-36.0) g/dL RDW Std Deviation (36.4-46.3) fL RDW Coeff of Tera (11.5-14.5) % Plt Count (130-400) K/uL MPV (9.4-12.4) fL Immature Gran % (Auto) % Neut % (Auto) % Lymph % (Auto) % [place] % (Auto) % Eos % (Auto) % Baso % (Auto) % Neut # (Auto) (1.40-6.50) K/uL Lymph # (Auto) (1.20-3.40) K/uL [place] # (Auto) (0.11-0.59) K/uL Eos # (Auto) (0.00-0.50) K/uL Baso # (Auto) (0.00-0.20) K/uL Immature Gran # (Auto) (0.01-0.20) K/uL PT (9.0-12.0) Seconds INR (0.9-1.1) APTT (21-31) Seconds PTT Ratio VBG pH (7.36-7.41) VBG pCO2 (38-50) mmHg VBG pO2 mmHg VBG HCO3 mmol/L VBG O2 Saturation % VBG Base Excess mEq/L POC Sodium (135-144) mmol/L Sodium (136-145) mmol/L POC Potassium (3.3-5.0) mmol/L Potassium (3.5-5.1) mmol/L POC Chloride (101-112) mmol/L Chloride (98-107) mmol/L Carbon Dioxide (21-32) mmol/L POC Total CO2 (24-31) mmol/L Anion Gap (3-11) POC Anion Gap (16-25) mmol/L POC BUN (7-18) mg/dl BUN (6-23) mg/dl Creatinine (0.6-1.2) mg/dl POC Creatinine (0.6-1.3) mg/dl Est Cr Clr Drug Dosing ml/min Est GFR ( Amer) ml/min Est GFR (Non-Af Amer) ml/min BUN/Creatinine Ratio (10-20) Glucose (70-99(Fasting)) mg/dl POC Glucose (other) (70-99) mg/dl Osmolality (280-300) mOsm/kg Calcium (8.6-10.3) mg/dl POC Ioniz Calcium Erendira (1.12-1.32) mmol/l Magnesium (1.7-2.4) mg/dl Total Creatine Kinase (26-192) U/L Troponin I High Sens (0-14) pg/ml Lipase (11-82) U/L Procalcitonin (0-0.5) ng/ml Urine Color Yellow Urine Appearance Clear (Clear) Urine pH 6.5 (4.5-7.5) Ur Specific Rosie > 1.045 H (1.000-1.030) Urine Protein 1+ H (Negative) Urine Glucose (UA) Negative (Negative) Urine Ketones 3+ H (Negative) Urine Blood Trace H (Negative) Urine Nitrite Negative (Negative) Urine Bilirubin Negative (Negative) Urine Urobilinogen Negative (Negative) Ur Leukocyte Esterase Negative (Negative) Urine WBC (Auto) 0-5 (0-5) /hpf Urine RBC (Auto) 6-10 H (0-2) /hpf U Hyaline Cast (Auto) 0-2 (0-2) /lpf U Epithel Cells (Auto) 0-2 (0-2) /hpf Urine Bacteria (Auto) None Seen (None Seen) Urine Osmolality 772 (500-800) mOsm/kg Ur Random Sodium < 10 mmol/L SARS-CoV-2, RNA, NAAT NEGATIVE (NEGATIVE) Imaging Data Attestation: I personally reviewed and interpreted this imaging study as follows: My Impression: Chest x-ray: Chest x-ray negative. Airway clear. No pneumothorax. No consolidation. No cardiomegaly or cephalization.. No free air under the diaphragm. No fractures of the skeletal structures. Pelvis x-ray: No acute fracture or dislocation. Hardware intact. Radiologist's Impression: Abdomen/Pelvis CT 09/28/23 16:[address] WITH IV CONTRAST HISTORY: Acute abdominal trauma status post fall fall TECHNIQUE: Multiaxial CT images of the abdomen and pelvis were performed following the IV administration of 92 cc of Optiray, A dose lowering technique was utilized adhering to the principles of ALARA. COMPARISON STUDY: 01/26/2008, lumbar spine radiographs 02/09/2023. FINDINGS: Calcified granulomata in the basal left lower lobe. Bibasilar ground glass densities suggest atelectasis. Study is limited secondary to respiratory motion, particularly positioning and streak artifact from extensive spinal fusion hardware and left normal battery pack. Unremarkable spleen, mildly atrophic pancreas, gallbladder and adrenal glands. Hepatic steatosis. Patency of the attic and portal veins. Symmetric enhancement of the kidneys. No hydronephrosis. Urinary bladder wall thickening with partial distention. Small hiatal hernia. Atherosclerosis of the abdominal aorta and branch vessels. No lymphadenopathy. No bowel obstruction. Colonic diverticulosis. Normal appendix. Left abdominal wall battery pack is noted with visualized leads/catheter distal tip L1, which portions appear intact. Extensive postoperative changes of the spine redemonstrated with posterior interbody fusion again seen at T11-S1 with bilateral iliac bones. Chronic T11 compression deformity. The right T11 pedicle screw demonstrates hardware loosening with distention into the T10-T11 disc space. L3-L4, L4-L5 and L5-S1 discectomy. Right femoral ORIF hardware. Levoscoliosis. IMPRESSION: 1. Limited exam as above. No acute intra-abdominal or intrapelvic abnormality identified. 2. No definite acute fracture identified. 3. Colonic diverticulosis. 4. Incidental findings as above include evidence of hardware loosening involving the right T11 pedicle screw. ACT 112: Negative or not required by law. The above report was generated using voice recognition software. It may contain grammatical, syntax or spelling errors. Electronically signed by: Bryant Muller M.D. 09/28/2023 5:[address] 09/28/23 16:29 CT cervical spine wo con CT DOSE: 1972.55 mGy.cm CLINICAL HISTORY: 68 years-old Female with fall. Acute pain status post fall COMPARISON: 10/17/2015 TECHNIQUE: Multiple axial CT images of the cervical spine were obtained without contrast. A dose lowering technique was utilized adhering to the principles of ALARA. FINDINGS: Normal appearance of the bones. Moderate to severe multilevel intervertebral disc space narrowing and facet arthrosis. There is progressively worsens stepwise grade 1 anterolisthesis at several levels, notably C4 on C5 and C7 on T1 secondary to the patient's chronic facet disease. Vacuum disc phenomenon noted at several levels. No acute fracture or subluxation identified. The cervical soft tissues appear unremarkable. Severe degeneration of the temporomandibular joints. The visualized lung apices appear clear. IMPRESSION: No acute cervical spine fracture identified. ACT 112: Negative or not required by law. The above report was generated using voice recognition software. It may contain grammatical, syntax or spelling errors. Electronically signed by: Bryant Muller M.D. 09/28/2023 5:18 PM Chest X-Ray 09/28/23 16:29 XR chest 1V portable HISTORY: 68 years-old Female fall acute chest trauma status post fall COMPARISON: 10/01/2022 TECHNIQUE: AP view of the chest FINDINGS: Limited exam secondary to positioning. Heart is mildly enlarged. No pneumothorax or pleural effusion. The lungs appear clear. Degenerative and postoperative changes of the spine. Battery pack projects over the left abdomen. Chronic right-sided rib fractures. IMPRESSION: No acute process. ACT 112: Negative or not required by law. The above report was generated using voice recognition software. It may contain grammatical, syntax or spelling errors. Electronically signed by: Bryant Muller M.D. 09/28/2023 4:[address] 09/28/23 16:29 CT facial bones wo con CLINICAL HISTORY: 68 years-old Female presenting with fall. Acute facial injury status post fall COMPARISON STUDY: 10/17/2015 TECHNIQUE: High-resolution CT scan of the facial bones is performed. Images are reviewed in the axial, sagittal, and coronal planes. IV contrast was not administered for this examination. A dose lowering technique was utilized adhering to the principles of ALARA. FINDINGS: Bilateral nasal bone fractures are noted with displacement and angulation on the right, new from prior. No significant adjacent soft tissue swelling. Mild rightward bowing and spurring of the nasal septum. 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 Facial bones are otherwise unremarkable. The paranasal sinuses and mastoid air cells are clear. Degenerative changes of the cervical spine. Partially imaged chronic left MCA infarct with septal malacia redemonstrated. IMPRESSION: 1. Age-indeterminate bilateral nasal bone fractures with displacement and angulation on the right, new from 2016. Correlate with point tenderness. 2. 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 ACT 112: Negative or not required by law. The above report was generated using voice recognition software. It may contain grammatical, syntax or spelling errors. Electronically signed by: Bryant Muller M.D. 09/28/2023 5:[address] 09/28/23 16:29 CT head/brain wo con CLINICAL HISTORY: 68 years-old Female with fall. Acute head trauma status post fall TECHNIQUE: Multiple axial CT images of the head were obtained without contrast. A dose lowering technique was utilized adhering to the principles of ALARA. COMPARISON: 11/05/2018, brain MRI 05/22/2020 FINDINGS: No acute intracranial hemorrhage, midline shift, intracranial mass, hydrocephalus, territorial ischemia or abnormal extra-axial collection. Chronic left MCA infarct with encephalomalacia and left lateral ex vacuo ventriculomegaly. The calvarium is intact. Angulation of the nasal bones, better appreciated on the same day CT maxillofacial. The paranasal sinuses, mastoid air cells, and middle ear cavities are clear. IMPRESSION: 1. No acute intracranial abnormality or calvarial fracture identified. 2. Large chronic left MCA infarct. ACT 112: Negative or not required by law. The above report was generated using voice recognition software. It may contain grammatical, syntax or spelling errors. Electronically signed by: Bryant Muller M.D. 09/28/2023 5:14 PM Pelvis X-Ray 09/28/23 16:29 XR pelvis 1-2V routine CLINICAL HISTORY: fall COMPARISON STUDY: Pelvis and hips 02/09/2023. FINDINGS: Internal fixation of an old, healed proximal right femoral shaft fracture with an intramedullary anaid and interlocking femoral neck pin. The hardware appears intact. No abnormal periprosthetic lucency. No acute fracture or dislocation within the pelvis or hips. Mild degenerative changes seen within the bilateral hips. There is a left lower quadrant electronic pump device noted. Extensive lumbosacral fusion hardware. The visualized hardware appears intact. The bones are osteopenic. IMPRESSION: 1. No acute fracture or dislocation within the pelvis or hips. 2. Postoperative changes as described above. The hardware appears intact. ACT 112: Negative or not required by law. Electronically signed by: Avi Monique M.D. 09/28/2023 4:54 PM ECG Data Attestation: I personally reviewed and interpreted this ECG as follows: Additional Comments: Sinus rhythm with rate of 83 MS 150 QRS [address] elevation or ST depression. MDM Narrative Vital signs stable. Imaging shows no acute traumatic injury. Labs are significant for sodium of 124 and total creatinine kinase of 11,667. Patient will be admitted to the [facility] hospitalist team Dr. Jin team notified. Impression & Plan Rhabdomyolysis, Acute hyponatremia, Fall Discharge Plan Visit Data Chief Complaint: Fall Stated Complaint: AMS ED Provider: Reji Mchugh Discharge Problem: Rhabdomyolysis, Acute hyponatremia, Fall Patient Disposition: Admitted As Inpatient Forms Stand Alone Forms: My [facility] Prescriptions Prescriptions: No Action pregabalin 100 mg capsule 100 mg PO TID Qty: 270 3RF baclofen 10 mg tablet 10 mg PO DAILY PRN (Reason: spasms) Qty: 90 3RF memantine 10 mg tablet 10 mg PO BID 90 Days Qty: 180 3RF donepezil 10 mg tablet 10 mg PO DAILY Qty: 90 3RF clopidogrel 75 mg tablet 75 mg PO HS Qty: 90 3RF celecoxib 200 mg capsule 200 mg PO QAM Qty: 90 3RF duloxetine [Cymbalta] 30 mg capsule,delayed release(DR/EC) 30 mg PO DAILY Qty: 30 5RF potassium chloride 10 mEq capsule, extended release 10 meq PO DAILY valacyclovir 500 mg tablet 500 mg PO BID PRN (Reason: Other) Rx Instructions: Take 1 tablet twice daily as directed. Vitamin B-6 50 mg capsule 50 mg PO WK Patient Comments: TAKES TUESDAYS - states that she is taking 500mg Rx Instructions: Thursday baclofen 40,000 mcg/20mL (2,000 mcg/mL) Solution 0 mcg continuous intrathecal infusion UD atorvastatin 10 mg tablet 10 mg PO UD Rx Instructions: 10 mg orally 3 times weekly; thu Referrals Referrals: Aaron Bowers MD [Primary Care Provider] - Discharge Problem: Rhabdomyolysis Qualifiers: Encounter type: initial encounter Fall Qualifiers: Encounter type: initial encounter Qualified Code(s): W19.XXXA - Unspecified fall, initial encounter
[2023-09-28 16:45] LABS: iSTAT Creatinine 0.7 mg/dl (0.6-1.3); iSTAT Ionized Calcium 1.14 mmol/l (1.12-1.32); iSTAT Potassium 3.7 mmol/L (3.3-5.0)
[2023-09-28 16:46] LABS: Basophils # (auto) 0.01 K/uL (0.00-0.20); Basophils % (auto) 0.1 %; Hematocrit (blood only) 44.7 % (37.0-47.0); Hemoglobin 16.3 g/dl (12.0-16.0); Immature Granulocytes # (auto) 0.03 K/uL (0.01-0.20); Immature Granulocytes % (auto) 0.3 %; Lymphocytes # (auto) 0.86 K/uL (1.20-3.40); Lymphocytes % (auto) 8.3 %; Mean Corpuscular Hemoglobin 30.7 pg (25.0-34.0); Mean Corpuscular Hgb Conc 36.5 g/dL (32.0-36.0); Mean Corpuscular Volume 84.2 fL (80.0-100.0); Mean Platelet Volume 10.7 fL (9.4-12.4); Monocytes # (auto) 1.02 K/uL (0.11-0.59); Monocytes % (auto) 9.9 %; Neutrophils # (auto) 8.38 K/uL (1.40-6.50); Neutrophils % (auto) 81.4 %; Platelet Count 391 K/uL (130-400); RDW Coefficient of Variation 12.3 % (11.5-14.5); RDW Standard Deviation 37.7 fL (36.4-46.3); Red Blood Count 5.31 M/uL (4.20-5.40)
[2023-09-28] MEDS: OPTIRAY 320 100ml IV ONE (16:48)
--- NOTE | 2023-09-28 16:55 | XRay Report ---
XR pelvis 1-2V routine CLINICAL HISTORY: fall COMPARISON STUDY: Pelvis and hips 02/09/2023. FINDINGS: Internal fixation of an old, healed proximal right femoral shaft fracture with an intramedu llary anaid and interlocking femoral neck pin. The hardware appears intact. No abnormal periprosthetic lucency. No acute fracture or dislocation within the pelvis or hips. Mild degenerative changes seen w ithin the bilateral hips. There is a left lower quadrant electronic pump device noted. Extensive lumb osacral fusion hardware. The visualized hardware appears intact. The bones are osteopenic. IMPRESSION: 1. No acute fracture or dislocation within the pelvis or hips. 2. Postoperative changes as described above. The hardware appears intact. ACT 112: Negative or not required by law. Electronically signed by: Avi Monique M.D. 09/28/2023 4:54 PM
--- NOTE | 2023-09-28 16:56 | XRay Report ---
XR chest 1V portable HISTORY: 68 years-old Female fall acute chest trauma status post fall COMPARISON: 10/01/2022 TECHNIQUE: AP view of the chest FINDINGS: Limited exam secondary to positioning. Heart is mildly enlarged. No pneumothorax or pleural effusion. The lungs appear clear. Degenerative and postoperative changes of the spine. Battery pack projects o boone the left abdomen. Chronic right-sided rib fractures. IMPRESSION: No acute process. ACT 112: Negative or not required by law. The above report was generated using voice recognition software. It may contain grammatical, syntax o r spelling errors. Electronically signed by: Bryant Muller M.D. 09/28/2023 4:55 PM
[2023-09-28] MEDS: SODIUM CHLORIDE 0.9% 1,000 ML IV SCH ×2 (16:59→20:33)
[2023-09-28 17:02] LABS: BUN Creatinine Ratio 28.4 (10-20); Calcium 9.7 mg/dl (8.6-10.3); Creatinine Clr Calc Pharmacy 73.6 ml/min; Est GFR (African American) 104.7 ml/min; Est GFR (Non-African American) 90.3 ml/min; Potassium 3.6 mmol/L (3.5-5.1)
[2023-09-28 17:03] LABS: Magnesium 1.9 mg/dl (1.7-2.4)
[2023-09-28 17:07] LABS: Base Excess VBG -1.2 mEq/L; HCO3 VBG 24 mmol/L; Oxygen Saturation VBG < 60.0 %; PCO2 VBG 39 mmHg (38-50); PO2 VBG < 20 mmHg; pH VBG 7.39 (7.36-7.41)
[2023-09-28 17:10] LABS: Partial Thromboplastin Ratio 0.9; Partial Thromboplastin Time 25 Seconds (21-31); Prothrombin Time 10.8 Seconds (9.0-12.0)
--- NOTE | 2023-09-28 17:17 | CT Scan Report ---
CT head/brain wo con CLINICAL HISTORY: 68 years-old Female with fall. Acute head trauma status post fall TECHNIQUE: Multiple axial CT images of the head were obtained without contrast. A dose lowering tech nique was utilized adhering to the principles of ALARA. COMPARISON: 11/05/2018, brain MRI 05/22/2020 FINDINGS: No acute intracranial hemorrhage, midline shift, intracranial mass, hydrocephalus, territorial ischem ia or abnormal extra-axial collection. Chronic left MCA infarct with encephalomalacia and left latera l ex vacuo ventriculomegaly. The calvarium is intact. Angulation of the nasal bones, better appreciated on the same day CT maxillo facial. The paranasal sinuses, mastoid air cells, and middle ear cavities are clear. IMPRESSION: 1. No acute intracranial abnormality or calvarial fracture identified. 2. Large chronic left MCA infarct. ACT 112: Negative or not required by law. The above report was generated using voice recognition software. It may contain grammatical, syntax o r spelling errors. Electronically signed by: Bryant Muller M.D. 09/28/2023 5:14 PM
--- NOTE | 2023-09-28 17:19 | CT Scan Report ---
CT cervical spine wo con CT DOSE: 1972.55 mGy.cm CLINICAL HISTORY: 68 years-old Female with fall. Acute pain status post fall COMPARISON: 10/17/2015 TECHNIQUE: Multiple axial CT images of the cervical spine were obtained without contrast. A dose low ering technique was utilized adhering to the principles of ALARA. FINDINGS: Normal appearance of the bones. Moderate to severe multilevel intervertebral disc space royce rowing and facet arthrosis. There is progressively worsens stepwise grade 1 anterolisthesis at severa l levels, notably C4 on C5 and C7 on T1 secondary to the patient's chronic facet disease. Vacuum disc phenomenon noted at several levels. No acute fracture or subluxation identified. The cervical soft tissues appear unremarkable. Severe degeneration of the temporomandibular joints. T he visualized lung apices appear clear. IMPRESSION: No acute cervical spine fracture identified. ACT 112: Negative or not required by law. The above report was generated using voice recognition software. It may contain grammatical, syntax o r spelling errors. Electronically signed by: Bryant Muller M.D. 09/28/2023 5:18 PM
--- NOTE | 2023-09-28 17:25 | CT Scan Report ---
CT facial bones wo con CLINICAL HISTORY: 68 years-old Female presenting with fall. Acute facial injury status post fall COMPARISON STUDY: 10/17/2015 TECHNIQUE: High-resolution CT scan of the facial bones is performed. Images are reviewed in the axia l, sagittal, and coronal planes. IV contrast was not administered for this examination. A dose lower ing technique was utilized adhering to the principles of ALARA. FINDINGS: Bilateral nasal bone fractures are noted with displacement and angulation on the right, new from prio r. No significant adjacent soft tissue swelling. Mild rightward bowing and spurring of the nasal sept um. 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 Facial bones are otherwise unremarkable. The paranasal sinuses and mastoid air cells are clear. Degenerative changes of the cervical spine. Pa rtially imaged chronic left MCA infarct with septal malacia redemonstrated. IMPRESSION: 1. Age-indeterminate bilateral nasal bone fractures with displacement and angulation on the right, ne w from 2016. Correlate with point tenderness. 2. 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 ACT 112: Negative or not required by law. The above report was generated using voice recognition software. It may contain grammatical, syntax o r spelling errors. Electronically signed by: Bryant Muller M.D. 09/28/2023 5:22 PM
--- NOTE | 2023-09-28 17:33 | CT Scan Report ---
ABDOMEN AND PELVIS CT WITH IV CONTRAST HISTORY: Acute abdominal trauma status post fall fall TECHNIQUE: Multiaxial CT images of the abdomen and pelvis were performed following the IV administrat ion of 92 cc of Optiray, A dose lowering technique was utilized adhering to the principles of ALARA. COMPARISON STUDY: 01/26/2008, lumbar spine radiographs 02/09/2023. FINDINGS: Calcified granulomata in the basal left lower lobe. Bibasilar ground glass densities sugges t atelectasis. Study is limited secondary to respiratory motion, particularly positioning and streak artifact from extensive spinal fusion hardware and left normal battery pack. Unremarkable spleen, mildly atrophic pancreas, gallbladder and adrenal glands. Hepatic steatosis. Pat ency of the attic and portal veins. Symmetric enhancement of the kidneys. No hydronephrosis. Urinary bladder wall thickening with partial distention. Small hiatal hernia. Atherosclerosis of the abdomina l aorta and branch vessels. No lymphadenopathy. No bowel obstruction. Colonic diverticulosis. Normal appendix. Left abdominal wall battery pack is noted with visualized leads/catheter distal tip L1, whi ch portions appear intact. Extensive postoperative changes of the spine redemonstrated with posterior interbody fusion again seen at T11-S1 with bilateral iliac bones. Chronic T11 compression deformity. The right T11 pedicle screw demonstrates hardware loosening with distention into the T10-T11 disc sp arben. L3-L4, L4-L5 and L5-S1 discectomy. Right femoral ORIF hardware. Levoscoliosis. IMPRESSION: 1. Limited exam as above. No acute intra-abdominal or intrapelvic abnormality identified. 2. No definite acute fracture identified. 3. Colonic diverticulosis. 4. Incidental findings as above include evidence of hardware loosening involving the right T11 pedicl e screw. ACT 112: Negative or not required by law. The above report was generated using voice recognition software. It may contain grammatical, syntax o r spelling errors. Electronically signed by: Bryant Muller M.D. 09/28/2023 5:31 PM
--- NOTE | 2023-09-28 18:22 | History & Physical Report ---
Date of Service September 28, 2023 Assessment & Plan (1) Rhabdomyolysis: Plan: Admit to the PCU on telemetry and oximetry Currently stable Presented to the ED via EMS after friends found the patient down after unwitnessed fall at home Unknown exact time of fall but her friends suspect it was the morning of 09/26/2023 as she had not been responding to calls since 09/25, normally takes her showers in the a.m., and was found on the floor naked CK level of 11,000, renal function currently stable Will obtain LFTs with repeat labs in approximately 2 hours Patient appears significantly dehydrated on exam Started on 125 mL NSS prior to admission, will give 1 L NSS bolus now and then continue with maintenance NSS of 125 mL/h moving forward Will repeat CMP approximately 2 hours after 1 L NS bolus for reassessment and just fluids accordingly Continue to monitor renal and liver function closely moving forward Will avoid hepatotoxic and renal toxic medications as able moving forward Bilateral SCDs for DVT prophylaxis tonight, can consider chemical DVT prophylaxis tomorrow if she is without signs of bleeding and based on renal function and platelet count Strict n.p.o. tonight until she can be evaluated by speech therapy tomorrow AM CBC, CMP, mag, PT/INR (2) Hyponatremia: Plan: Initial sodium of 124 Patient noted to be significantly dehydrated on exam, serum osmolality of 259, urine osmolality of 772, and random urine sodium of less than 10 Likely due to significant dehydration at this time Given 1 L NSS bolus now due to dehydration and rhabdomyolysis Will plan on continuing maintenance NSS point forward with as needed hypertonic saline boluses if she would develop signs of SIADH Seizure precautions ordered Will place ongoing repeat labs on CMP obtained approximately 2 hours after admission (3) Unwitnessed fall: Plan: Patient with unwitnessed fall of unknown time Was found on the ground in her bedroom, naked, covered in dried feces Suspect she fell the morning of 09/26/2023 as she normally takes a shower every morning, was found on the ground naked, and had not responded to any text messages since 09/26/2023 Patient has baseline ambulatory dysfunction from her right-sided Hemiplegia from previous CVA PT/OT consults have been placed as patient will likely need inpatient rehab at discharge if not at SNF placement Fall precautions ordered (4) Hemiplegia: Plan: Appears to be at baseline as she still has altered function of her LLE/LUE Patient has known intrathecal pump which is maintained by [facility] pain management clinic Per the last pain management clinic note on 09/01/2023, her intrathecal pump was routinely refilled and set to maintain a baclofen dose of 552.2 mcg/day and 15.22 mg/day of clonidine Patient was also was prescribed p.o. baclofen for breakthrough muscle spasm Will hold p.o. baclofen for now and continue to monitor for muscle spasms Monitor for signs of baclofen withdrawal moving forward, if any concerns may need to get imaging of intrathecal pump (5) Elevated troponin: Plan: Initial high-sensitivity troponin elevated at 26 Patient denies chest pain at this time No acute ST segment or T wave changes on EKG Likely due to elevated CK level and demand Will follow repeat 2-hour high-sensitivity troponin pending continue monitoring telemetry for now (6) Failure to thrive in adult: Plan: Patient is likely high risk for ongoing falls reported she currently lives by herself PT/OT consulted placed as patient will likely need increased care at the time of discharge Plan The patient was discussed with Dr. 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 Patient reportedly lives at home alone. She was noted to be tachycardic with heart rate of 95 on arrival but otherwise stable. Labs were significant for sodium of 124, chloride of 89, glucose of 100, total CK of 11,667, initial high-sensitivity troponin of 26. CT of the head and brain without contrast, CT of the cervical spine without contrast, chest x-ray, and x-ray of the pelvis were read as negative for acute findings. CT of the face without contrast notes age-indeterminate bilateral nasal bone fractures with displacement and angulation on the right, new from 2016. Severe degeneration at the temporomandibular joints. CT of the abdomen pelvis with IV contrast was read as negative for acute intra-abdominal or intrapelvic abnormalities. No definite acute fracture identified. Colonic diverticulosis. And incidental findings as above include evidence of hardware loosening involving the right T11 pedicle screw. Prior to admission the patient was started on normal saline at 125 mL/h. Patient was lying in bed in no acute distress at the time of the exam with friend bedside, history was mainly obtained from her friend due to patient's current status. Her friend explains that the patient lives at home alone, does not have home health, and only has a push bench operator helper comes once a week to assist her. Her only relative is her sister who lives in [place]. One of their other friends found the patient on the ground at home, naked, in her bedroom earlier today with dried feces. The patient was found in the position. They checked on her today as they had not heard from her since 09/26/2023. They believe she may have fallen the morning of 09/26/2023 as she normally takes a shower in the morning and was found naked in her room. When asked, the patient notes pain in her lower back but is unable to give specific details. When asked specifically about head pain, neck pain, mid back pain, chest pain, abdominal pain, hip pain, and bilateral leg pain she denies these. She is currently oriented to person, place, and month but told me it was 2018 and cannot tell me why she was brought to the hospital. Because of this, we will keep her full code per her last admission in 2021 until we can speak with family and see if her mental status improved with treatment of her acute issues. Please for Dr. Jin's attestation for any changes to the treatment plan Allergies Allergy/AdvReac Type Severity Reaction Status Date / Time cephalexin Allergy Severe Anaphylaxis Verified 09/22/23 09:59 Penicillins AdvReac Mild nausea Verified 09/22/23 09:59 Home Medications Medication Instructions Recorded Confirmed Type pyridoxine (vitamin B6) 50 mg 50 mg PO WK 08/01/20 09/28/23 History capsule (Vitamin B-6) baclofen 40,000 mcg/20 mL (2,000 0 mcg continuous intrathecal 08/04/21 09/28/23 History mcg/mL) intrathecal solution infusion UD baclofen 10 mg tablet 10 mg PO DAILY PRN spasms #90 tabs 12/01/22 09/28/23 Rx celecoxib 200 mg capsule 200 mg PO QAM #90 caps 03/20/23 09/28/23 Rx clopidogrel 75 mg tablet 75 mg PO HS #90 tabs 03/20/23 09/28/23 Rx donepezil 10 mg tablet 10 mg PO DAILY #90 tabs 03/20/23 09/28/23 Rx memantine 10 mg tablet 10 mg PO BID 90 days #180 tabs 03/20/23 09/28/23 Rx potassium chloride 10 mEq 10 meq PO DAILY 06/15/23 09/28/23 History capsule,extended release valacyclovir 500 mg tablet 500 mg PO BID PRN Other 06/15/23 09/28/23 History pregabalin 100 mg capsule 100 mg PO TID #270 caps 08/28/23 09/28/23 Rx duloxetine 30 mg capsule,delayed 30 mg PO DAILY #30 caps 09/22/23 09/28/23 Rx release (Cymbalta) atorvastatin 10 mg tablet 10 mg PO UD 09/28/23 09/28/23 History Past Med/Surg History Problem List (Updated 09/28/23 @ 20:08 by Reji Mchugh MD) Fall (Acute) Acute hyponatremia (Acute) Rhabdomyolysis (Acute) Failure to thrive in adult Hyponatremia Elevated troponin Rhabdomyolysis Unwitnessed fall Lumbar pain Hemiplegia Right side > wears AFO brace on RLE, no control of right arm Weight loss Aphasia due to disease due to b12 deficiency B12 deficiency expressive aphasia Hypokalemia Fall (on) (from) other stairs and steps, initial encounter Osteoarthritis Encounter for routine gynecological examination Aphasia, post-stroke Executive function deficit Hemiparesis affecting right side as late effect of cerebrovascular accident Presence of intrathecal pump Sacroiliac inflammation Carpal tunnel syndrome (Chronic) Neck pain (Acute) Lumbar postlaminectomy syndrome (Chronic) History of lumbar fusion (Chronic) X 2 Change in bowel habits History of cerebrovascular accident from left carotid artery occlusion involving left middle cerebral artery territory Aphasia as late effect of cerebrovascular accident History of CVA (cerebrovascular accident) (Chronic) 1998 large left MCA territory in setting of occluded left carotid potentially related to oral contraception at that time > chronic spastic right hemiparesis, flaccid upper limb and mild to moderate expressive aphasia > on plavix > follows with [facility] Medical History External constriction of left ring finger, initial encounter Sciatica Osteoporosis with fracture Hyperplastic colon polyp Ring or other jewelry causing external constriction, initial encounter Hyponatremia Fall Closed femur fracture Memory loss Left carotid artery occlusion Vasovagal syncope if not laying flat during blood draws Encounter for pre-operative examination Memory problem History of depression 1999 per pt Hypertension controlled, stable per pt Chronic constipation with overflow 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 (CVA) 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 (CVA) CVA (cerebral vascular accident) Laceration of eyebrow, right Head trauma Osteoporosis Stroke Surgical History Family history of reaction to anesthesia Mother: slow to wake History of gynecologic surgery Labial "removal" History of back surgery Lumbar fusion x2 History of colonoscopy History of tooth extraction History of tonsillectomy Family History Father Cancer Family history of esophageal cancer Other No pertinent family history Denies family history of Ovarian cancer Prostate cancer Diabetes Myocardial infarction Breast cancer Colorectal cancer Hypertension Social History Smoking Status: Former smoker Age Started Using Tobacco: 12; Age Quit Using Tobacco: 22; Second Hand Exposure: No; Do You Dip or Chew Tobacco: No; Tobacco Cessation Education Requested by Patient: No Hx Alcohol Use: No Hx Substance Use: No Preferred Language: Ghanaian Communication Ability: Impaired Communication Ability Comment: Expressive aphasia from previous CVA Visual Impairment: No Limitations Shop Fitter 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 Beliefs That Will Affect Care: None marital status: Single Current Living Situation: Alone current occupational status: retired How many Children do You have: 0 Other Information That Helps Us Care for You: No Feels Safe at Home: Yes Safety Concerns: Feels Safe At This Time Childhood Exposure to Second-Hand Smoke: Yes caffeine: Yes (coffee) Dental Care, Regularly: Yes Physical Activity Frequency: Daily Seatbelt Use: always Sunscreen Use: Yes Assistive Devices: Cane and Walker Physical Exam Physical Exam: Physical Exam: General: In no acute distress, stated age, dehydrated and disheveled but non- toxic appearing HEENT: Bruising noted to the proximal BL nose, no other significant trauma noted on inspection of the face/head, no scleral icterus, pupils around round, symmetrical, and reactive to light, moist mucus membranes, trachea midline, no thyromegaly Chest/Pulm: No respiratory distress, symmetrical chest expansion, clear breath sounds throughout Cardiac: RRR, no murmurs noted Abdomen: Negative for ascites and bruising, normoactive bowel sounds, soft, non-tender to palpation throughout Musculoskeletal: Patient with baseline right sided hemiparesis at baseline >Able to move right shoulder, elbow, wrist, and hand without pain or limitation >No tenderness or pain on palpation of the BL hips, >Mild swelling noted at the distal aspect of the right knee, patient able to move LLE without limitation Extremities: Radial, dorsalis pedis, and posterior tibial pulses are intact and symmetrical, no edema noted in the BL LE's Skin: Patient with extensive bruising on exam including the BL posterior shoulders, BL upper arms, chin, BL buttocks with abrasions on the left buttocks, and BL LE's Neuro: Alert and oriented to person, place, month, but not to year or reason for being transported to the Hospital, baseline expressive aphasia, CN II-XII tested and intact, intact strength in the Left upper/lower extremities Psych: No acute distress, intermittent confusion, calm and cooperative during the exam Results & Data Results & Data Vital Signs (Past 12 Hours) Vital Signs Temp Pulse Pulse Resp BP BP Pulse Ox 09/28/23 16:54 94 09/28/23 16:54 84 18 138/81 95 09/28/23 16:22 36.8 C 95 H 19 138/81 95 O2 Del Method 09/28/23 16:54 Room Air 09/28/23 16:54 Room Air 09/28/23 16:22 Room Air Laboratory Results Abnormal lab results 09/28/23 09/28/23 Range/Units 16:27 16:32 Hgb 16.3 H (12.0-16.0) g/dl POC Hgb 17.0 H (12.0-16.0) g/dl POC Hct 50 H (37-47) % MCHC 36.5 H (32.0-36.0) g/dL Neut # (Auto) 8.38 H (1.40-6.50) K/uL Lymph # (Auto) 0.86 L (1.20-3.40) K/uL Stearns # (Auto) 1.02 H (0.11-0.59) K/uL POC Sodium 124 L (135-144) mmol/L Sodium 124 L (136-145) mmol/L POC Chloride 88 L (101-112) mmol/L Chloride 89 L (98-107) mmol/L POC BUN 19 H (7-18) mg/dl BUN/Creatinine Ratio 28.4 H (10-20) POC Glucose (other) 100 H (70-99) mg/dl Total Creatine Kinase 79523 H (26-192) U/L Troponin I High Sens 26.0 H (0-14) pg/ml Lipase 6 L (11-82) U/L Diagnostic Findings Abdomen/Pelvis CT 09/28/23 16:[address] WITH IV CONTRAST HISTORY: Acute abdominal trauma status post fall fall TECHNIQUE: Multiaxial CT images of the abdomen and pelvis were performed following the IV administration of 92 cc of Optiray, A dose lowering technique was utilized adhering to the principles of ALARA. COMPARISON STUDY: 01/26/2008, lumbar spine radiographs 02/09/2023. FINDINGS: Calcified granulomata in the basal left lower lobe. Bibasilar ground glass densities suggest atelectasis. Study is limited secondary to respiratory motion, particularly positioning and streak artifact from extensive spinal fusion hardware and left normal battery pack. Unremarkable spleen, mildly atrophic pancreas, gallbladder and adrenal glands. Hepatic steatosis. Patency of the attic and portal veins. Symmetric enhancement of the kidneys. No hydronephrosis. Urinary bladder wall thickening with partial distention. Small hiatal hernia. Atherosclerosis of the abdominal aorta and branch vessels. No lymphadenopathy. No bowel obstruction. Colonic diverticulosis. Normal appendix. Left abdominal wall battery pack is noted with visualized leads/catheter distal tip L1, which portions appear intact. Extensive postoperative changes of the spine redemonstrated with posterior interbody fusion again seen at T11-S1 with bilateral iliac bones. Chronic T11 compression deformity. The right T11 pedicle screw demonstrates hardware loosening with di stention into the T10-T11 disc space. L3-L4, L4-L5 and L5-S1 discectomy. Right femoral ORIF hardware. Levoscoliosis. IMPRESSION: 1. Limited exam as above. No acute intra-abdominal or intrapelvic abnormality identified. 2. No definite acute fracture identified. 3. Colonic diverticulosis. 4. Incidental findings as above include evidence of hardware loosening involving the right T11 pedicle screw. ACT 112: Negative or not required by law. The above report was generated using voice recognition software. It may contain grammatical, syntax or spelling errors. Electronically signed by: Bryant Muller M.D. 09/28/2023 5:[address] 09/28/23 16:29 CT cervical spine wo con CT DOSE: 1972.55 mGy.cm CLINICAL HISTORY: 68 years-old Female with fall. Acute pain status post fall COMPARISON: 10/17/2015 TECHNIQUE: Multiple axial CT images of the cervical spine were obtained without contrast. A dose lowering technique was utilized adhering to the principles of ALARA. FINDINGS: Normal appearance of the bones. Moderate to severe multilevel intervertebral disc space narrowing and facet arthrosis. There is progressively worsens stepwise grade 1 anterolisthesis at several levels, notably C4 on C5 and C7 on T1 secondary to the patient's chronic facet disease. Vacuum disc phenomenon noted at several levels. No acute fracture or subluxation identified. The cervical soft tissues appear unremarkable. Severe degeneration of the temporomandibular joints. The visualized lung apices appear clear. IMPRESSION: No acute cervical spine fracture identified. ACT 112: Negative or not required by law. The above report was generated using voice recognition software. It may contain grammatical, syntax or spelling errors. Electronically signed by: Bryant Muller M.D. 09/28/2023 5:18 PM Chest X-Ray 09/28/23 16:29 XR chest 1V portable HISTORY: 68 years-old Female fall acute chest trauma status post fall COMPARISON: 10/01/2022 TECHNIQUE: AP view of the chest FINDINGS: Limited exam secondary to positioning. Heart is mildly enlarged. No pneumothorax or pleural effusion. The lungs appear clear. Degenerative and postoperative changes of the spine. Battery pack projects over the left abdomen. Chronic right-sided rib fractures. IMPRESSION: No acute process. ACT 112: Negative or not required by law. The above report was generated using voice recognition software. It may contain grammatical, syntax or spelling errors. Electronically signed by: Bryant Muller M.D. 09/28/2023 4:[address] 09/28/23 16:29 CT facial bones wo con CLINICAL HISTORY: 68 years-old Female presenting with fall. Acute facial injury status post fall COMPARISON STUDY: 10/17/2015 TECHNIQUE: High-resolution CT scan of the facial bones is performed. Images are reviewed in the axial, sagittal, and coronal planes. IV contrast was not admi nistered for this examination. A dose lowering technique was utilized adhering to the principles of ALARA. FINDINGS: Bilateral nasal bone fractures are noted with displacement and angulation on the right, new from prior. No significant adjacent soft tissue swelling. Mild rightward bowing and spurring of the nasal septum. 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 Facial bones are otherwise unremarkable. The paranasal sinuses and mastoid air cells are clear. Degenerative changes of the cervical spine. Partially imaged chronic left MCA infarct with septal malacia redemonstrated. IMPRESSION: 1. Age-indeterminate bilateral nasal bone fractures with displacement and angulation on the right, new from 2016. Correlate with point tenderness. 2. 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 ACT 112: Negative or not required by law. The above report was generated using voice recognition software. It may contain grammatical, syntax or spelling errors. Electronically signed by: Bryant Muller M.D. 09/28/2023 5:[address] 09/28/23 16:29 CT head/brain wo con CLINICAL HISTORY: 68 years-old Female with fall. Acute head trauma status post fall TECHNIQUE: Multiple axial CT images of the head were obtained without contrast. A dose lowering technique was utilized adhering to the principles of ALARA. COMPARISON: 11/05/2018, brain MRI 05/22/2020 FINDINGS: No acute intracranial hemorrhage, midline shift, intracranial mass, hydrocephalus, territorial ischemia or abnormal extra-axial collection. Chronic left MCA infarct with encephalomalacia and left lateral ex vacuo ventriculomegaly. The calvarium is intact. Angulation of the nasal bones, better appreciated on the same day CT maxillofacial. The paranasal sinuses, mastoid air cells, and middle ear cavities are clear. IMPRESSION: 1. No acute intracranial abnormality or calvarial fracture identified. 2. Large chronic left MCA infarct. ACT 112: Negative or not required by law. The above report was generated using voice recognition software. It may contain grammatical, syntax or spelling errors. Electronically signed by: Bryant Muller M.D. 09/28/2023 5:14 PM Pelvis X-Ray 09/28/23 16:29 XR pelvis 1-2V routine CLINICAL HISTORY: fall COMPARISON STUDY: Pelvis and hips 02/09/2023. FINDINGS: Internal fixation of an old, healed proximal right femoral shaft fracture with an intramedullary anaid and interlocking femoral neck pin. The hardware appears intact. No abnormal periprosthetic lucency. No acute fracture or dislocation within the pelvis or hips. Mild degenerative changes seen within the bilateral hips. There is a left lower quadrant electronic pump device noted. Extensive lumbosacral fusion hardware. The visualized hardware appears intact. The bones are osteopenic. IMPRESSION: 1. No acute fracture or dislocation within the pelvis or hips. 2. Postoperative changes as described above. The hardware appears intact. ACT 112: Negative or not required by law. Electronically signed by: Avi Monique M.D. 09/28/2023 4:54 PM ECG Additional Comments: Normal sinus rhythm Low voltage QRS Cannot rule out Anterior infarct , age undetermined Abnormal ECG When compared with ECG of 04-AUG-2021 11:15, No significant change was found Code Status & VTE Plan Code Status Full code VTE Prophylaxis Plan VTE Prophylaxis will be ordered: Yes Supervising Physician Co-Signing Physician Notes I personally saw and examined the patient. I verified all gerard points and agree with Kayden Anderson PA-C with the following exceptions and/or additions: 68 year old female presents to the ER after being found on the ground at her home covered in feces. Patient does not remember who she got on the ground or how long she has been on the ground for. No pain but requesting her Lyrica. No shortness of breath, nasal congestion, change in bowels or urinary symptoms. O/E Frail appearing, stage 1 pressure ulcer on shoulder and back, hemiplegia of left side, HS RRR, no murmurs, Chest CTAB, Abdo SNT, no areas of cellulitis seen A/P Rhabdomyolysis - NSS 1L bolus, followed by NSS @ 200ml/hr, repeat CK level in AM Hypovolemia hyponatremia - Aim 6-8 meq increase over next 24 hours. Should improve with NSS alone, if rising too fast switch to D5W Otherwise as above PG Care Time/CCT Total # of Minutes Spent Total Time Spent with Patient: Total time spent is greater than 50% in coordination of care (as documented) at patient's floor/unit and/or counseling patient: Coding [place] [address] INT INP/OBS CARE 75MIN Patient Type Established Medical Decision Making High Complexity Diagnoses Rhabdomyolysis M62.82 Hyponatremia E87.1 Unwitnessed fall R29.6 Hemiplegia G81.90 Hemiplegia etiology: late effect of cerebrovascular disease Hemiplegia laterality: right dominant side Hemiplegia type: spastic Elevated troponin R79.89 Failure to thrive in adult R62.7 (4) Hemiplegia Hemiplegia etiology: late effect of cerebrovascular disease Hemiplegia laterality: right dominant side Hemiplegia type: spastic
[2023-09-28 18:34] LABS: Appearance Urine Clear (Clear); Bacteria Urine Automated None Seen (None Seen); Bilirubin Urine Negative (Negative); Blood Urine Trace (Negative); Cast Urine Automated 0-2 /lpf (0-2); Color Urine Yellow; Epithelial Cell Urine Auto 0-2 /hpf (0-2); Glucose Urine UA Negative (Negative); Ketones Urine 3+ (Negative); Leukocyte Esterase Urine Negative (Negative); Nitrite Urine Negative (Negative); Protein Urine 1+ (Negative); Specific Gravity Urine > 1.045 (1.000-1.030); Urobilinogen Urine Negative (Negative); WBC Urine Automated 0-5 /hpf (0-5); pH Urine 6.5 (4.5-7.5)
[2023-09-28] MEDS: SODIUM CHLORIDE 0.9% 1,000 ML IV ONE (19:20)
[2023-09-28 21:02] LABS: Albumin Globulin Ratio 1.7 (0.9-2); Albumin Level 3.7 gm/dl (3.4-5.0); BUN Creatinine Ratio 27.8 (10-20); Bilirubin,Total 1.5 mg/dl (0.2-1.0); Calcium 8.3 mg/dl (8.6-10.3); Creatinine Clr Calc Pharmacy 91.3 ml/min; Est GFR (African American) 112.4 ml/min; Globulin 2.2 gm/dl (2.5-4.0); Magnesium 1.8 mg/dl (1.7-2.4); Potassium 4.3 mmol/L (3.5-5.1); Total Protein 5.9 gm/dl (6.0-8.3)
[2023-09-28] MEDS: PREGABALIN 100 MG CAP PO SCH (23:54)
[2023-09-28] MEDS: ENOXAPARIN INJ 40 MG/0.4 ML SYR SQ SCH (23:54)
[2023-09-28] MEDS: MEMANTINE HCL 10 MG TAB PO SCH (23:55)
[2023-09-29 00:56] LABS: Troponin I High Sensitivity 25.4 pg/ml (0-14)
[2023-09-29 07:06] LABS: Calcium 7.9 mg/dl (8.6-10.3); Creatinine Clr Calc Pharmacy 110.7 ml/min; Est GFR (African American) 122.1 ml/min; Est GFR (Non-African American) 105.3 ml/min; Potassium 3.2 mmol/L (3.5-5.1)
--- NOTE | 2023-09-29 07:17 | XRay Report ---
XR knee RT 1 or 2V routine CLINICAL HISTORY: fall, right knee pain/swelling COMPARISON STUDY: None. FINDINGS: No fracture or dislocation within the right knee. Mild tricompartmental osteoarthritis. No knee effusion. Soft tissues are unremarkable. A femoral intramedullary anaid is noted. IMPRESSION: No acute fracture or dislocation within the right knee. ACT 112: Negative or not required by law. Electronically signed by: Avi Monique M.D. 09/29/2023 7:16 AM
[2023-09-29 07:22] LABS: Prothrombin Time 10.5 Seconds (9.0-12.0)
[2023-09-29 07:28] LABS: Basophils # (auto) 0.02 K/uL (0.00-0.20); Basophils % (auto) 0.3 %; Eosinophils # (auto) 0.03 K/uL (0.00-0.50); Eosinophils % (auto) 0.4 %; Hematocrit (blood only) 35.7 % (37.0-47.0); Hemoglobin 12.5 g/dl (12.0-16.0); Immature Granulocytes # (auto) 0.03 K/uL (0.01-0.20); Immature Granulocytes % (auto) 0.4 %; Lymphocytes # (auto) 1.72 K/uL (1.20-3.40); Lymphocytes % (auto) 22.2 %; Mean Corpuscular Hemoglobin 30.3 pg (25.0-34.0); Mean Corpuscular Volume 86.4 fL (80.0-100.0); Mean Platelet Volume 11.3 fL (9.4-12.4); Monocytes # (auto) 1.15 K/uL (0.11-0.59); Monocytes % (auto) 14.9 %; Neutrophils # (auto) 4.79 K/uL (1.40-6.50); Neutrophils % (auto) 61.8 %; Platelet Count 308 K/uL (130-400); RDW Coefficient of Variation 12.7 % (11.5-14.5); RDW Standard Deviation 40.3 fL (36.4-46.3); Red Blood Count 4.13 M/uL (4.20-5.40); White Blood Count 7.74 K/ul (4.8-10.8)
[2023-09-29 07:29] LABS: Albumin Globulin Ratio 1.9 (0.9-2); Albumin Level 3.3 gm/dl (3.4-5.0); Bilirubin,Total 1.4 mg/dl (0.2-1.0); Globulin 1.7 gm/dl (2.5-4.0); Magnesium 1.8 mg/dl (1.7-2.4); Phosphorus 2.3 mg/dl (2.5-4.9)
[2023-09-29] MEDS: DONEPEZIL HCL 10 MG TAB PO SCH (07:33)
[2023-09-29] MEDS: DULoxetine HCL 30 MG CAP PO SCH (07:33)
[2023-09-29] MEDS: POTASSIUM CHLORIDE 10 MEQ TABCR PO SCH (09:02)
[2023-09-29] MEDS: D5NSS + 20MEQ KCL 20 MEQ/1,000 ML BAG IV SCH (09:03)
--- NOTE | 2023-09-29 11:41 | Electrocardiogram Report ---
Test Reason : Blood Pressure : / mmHG Vent. Rate : 083 BPM Atrial Rate : 083 BPM P-R Int : 150 ms QRS Dur : 062 ms QT Int : 360 ms P-R-T Axes : 067 -03 040 degrees QTc Int : 423 ms Normal sinus rhythm Low voltage QRS Poor R wave progression, consider anterior PR vs. lead placement vs. LVH Abnormal ECG When compared with ECG of 04-AUG-2021 11:15, No significant change was found Confirmed by Yoseph Crenshaw ([id number]) on 09/29/2023 11:41:24 AM Referred By: REFERRED SELF Confirmed By:Yoseph Crenshaw
--- NOTE | 2023-09-29 12:28 | Hospitalist Progress Note ---
Date of Service September 29, 2023 Assessment & Plan (1) Rhabdomyolysis: Plan: Improving. CK 11,000 on admission and now down to 4000. Renal function is stable. IV fluids have been tapered down. Serial labs (2) Hyponatremia: Plan: With hypoosmolarity. Suspect SIADH. Sodium has improved from 1 24-1 29. Continue serial labs. (3) Unwitnessed fall: Plan: She apparently suffered a nasal fracture when she fell but she denies syncope. She was too weak to get up off the floor however. OT and PT assessments requested. It appears she will need placement for continued OT and PT before she can return home. 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 Head CT scan on admission reveals no new findings. Supportive care. (5) Elevated troponin: Plan: Appears to be due to demand ischemia. No evidence of acute coronary syndrome. Denies chest pain (6) Failure to thrive in adult: Plan: Supportive care. Await OT and PT assessments. It appears she will need placement Plan To be determined Admission and Anticipated Discharge Date Admission Date: September 28, 2023 Subjective Awake and alert. No apparent distress. She has an abrasion over the bridge of the nose with underlying nasal fracture. Sodium improved to 129 and CK down to 4000. Creatinine is stable. Potassium was low at 3.2 and will be replaced. IV fluids taper down. OT and PT assessments pending. It appears she will need placement for continued physical therapy and Occupational Therapy before she can return home Review of Systems 2 Review of Systems: Constitutional-no fever or chills ENT-no blurred vision, no double vision, no epistaxis, no sore throat Respiratory-no cough, no wheezing, no shortness of breath Cardiac-no palpitations, no chest pain, no syncope GI-no nausea, vomiting, diarrhea, melena, hematochezia -no urinary retention, no urinary incontinence, no dysuria, no hematuria Musculoskeletal-no joint pain, no muscle tenderness Skin-contusion and ecchymosis over the bridge of the nose. Neuro-generalized weakness. No focal deficits Psych-no depression, no anxiety Physical Exam 2 Physical Exam: General-alert and oriented x3, no fever, no chills HEENT-head atraumatic and normocephalic, pupils equal and reactive to light, extraocular muscles intact Neck-no lymphadenopathy or thyromegaly, trachea midline Chest-clear to auscultation. No rales, wheezing or rhonchi Cardiac-regular rate and rhythm, normal S1 and S2 Abdomen-normal bowel sounds, no hepatosplenomegaly Extremities-no cyanosis, clubbing, or edema Neuro-cranial nerves II through XII intact, chronic right hemiparesis from old CVA, generalized weakness Psych-normal affect, normal mood Results & Data Results & Data Vital Signs (Past 12 Hours) Vital Signs Temp Pulse Pulse Resp BP Pulse Ox O2 Del Method 09/29/23 10:31 36.8 C 70 17 121/72 94 Room Air 09/29/23 10:29 74 09/29/23 07:07 37.2 C 89 16 107/64 96 Room Air 09/29/23 02:35 36.8 C 82 16 119/71 97 Room Air Laboratory Results 09/29/23 05:41 09/29/23 05:41 PG Care Time/CCT Total # of Minutes Spent Total Time Spent with Patient: Total time spent is greater than 50% in coordination of care (as documented) at patient's floor/unit and/or counseling patient: Coding Level of Care Code 40113 SUB INP/OBS CARE 3/50MIN Diagnoses Rhabdomyolysis M62.82 Hyponatremia E87.1 Unwitnessed fall R29.6 Hemiplegia G81.90 Hemiplegia type: spastic Hemiplegia etiology: late effect of cerebrovascular disease Hemiplegia laterality: right dominant side Elevated troponin R79.89 Failure to thrive in adult R62.7 (4) Hemiplegia Hemiplegia type: spastic Hemiplegia etiology: late effect of cerebrovascular disease Hemiplegia laterality: right dominant side
[2023-09-29] MEDS: CLOPIDOGREL BISULFATE 75 MG TAB PO SCH (20:52)
[2023-09-30 07:16] LABS: Basophils # (auto) 0.03 K/uL (0.00-0.20); Basophils % (auto) 0.5 %; Eosinophils # (auto) 0.07 K/uL (0.00-0.50); Eosinophils % (auto) 1.1 %; Hematocrit (blood only) 32.3 % (37.0-47.0); Hemoglobin 11.4 g/dl (12.0-16.0); Immature Granulocytes # (auto) 0.02 K/uL (0.01-0.20); Immature Granulocytes % (auto) 0.3 %; Lymphocytes # (auto) 1.21 K/uL (1.20-3.40); Lymphocytes % (auto) 19.6 %; Mean Corpuscular Hgb Conc 35.3 g/dL (32.0-36.0); Mean Corpuscular Volume 87.8 fL (80.0-100.0); Mean Platelet Volume 10.9 fL (9.4-12.4); Monocytes # (auto) 0.91 K/uL (0.11-0.59); Monocytes % (auto) 14.7 %; Neutrophils # (auto) 3.93 K/uL (1.40-6.50); Neutrophils % (auto) 63.8 %; Platelet Count 275 K/uL (130-400); RDW Coefficient of Variation 13.2 % (11.5-14.5); RDW Standard Deviation 42.6 fL (36.4-46.3); Red Blood Count 3.68 M/uL (4.20-5.40); White Blood Count 6.17 K/ul (4.8-10.8)
[2023-09-30 07:30] LABS: Albumin Level 3.2 gm/dl (3.4-5.0); BUN Creatinine Ratio 25.6 (10-20); Bilirubin,Total 0.9 mg/dl (0.2-1.0); Calcium 7.9 mg/dl (8.6-10.3); Creatinine Clr Calc Pharmacy 119.2 ml/min; Est GFR (African American) 125.1 ml/min; Est GFR (Non-African American) 107.9 ml/min; Globulin 1.6 gm/dl (2.5-4.0); Potassium 3.6 mmol/L (3.5-5.1); Total Protein 4.8 gm/dl (6.0-8.3)
--- NOTE | 2023-09-30 15:05 | Hospitalist Progress Note ---
Date of Service September 30, 2023 Assessment & Plan (1) Rhabdomyolysis: Plan: Continued improvement. Creatinine kinase is down to 1740 today, September 29. This will eventually normalize. Renal function is stable. Continue IV fluids for now. Serial labs (2) Hyponatremia: Plan: With hypoosmolarity. Suspect SIADH. Continued sodium improvement up to 133. Continue serial labs. (3) Unwitnessed fall: Plan: She apparently suffered a nasal fracture when she fell but she denies syncope. She was too weak to get up off the floor however. OT and PT assessments noted. Hopeful discharge to [facility] but [facility] is the backup plan. 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 Head CT scan on admission reveals no new findings. Supportive care. (5) Elevated troponin: Plan: Appears to be due to demand ischemia. No evidence of acute coronary syndrome. Denies chest pain (6) Failure to thrive in adult: Plan: Supportive care. Continue OT and PT. (7) Transaminitis: Plan: Mildly elevated liver enzymes on admission. LFTs are now downtrending. Serial labs (8) Metabolic encephalopathy: Plan: POA. Now resolved Plan Hopeful discharge to [facility] tomorrow, September 30 Admission and Anticipated Discharge Date Admission Date: September 28, 2023 Subjective Alert and oriented. Metabolic encephalopathy present on admission has resolved. Potassium corrected to 3.6. Sodium continues to improve to 133. CK is down to 1740 and dropping. Liver enzymes continue to improve. Hopefully she will be accepted at [facility] and can be discharged tomorrow, September 30. [facility] is the backup plan. Review of Systems 2 Review of Systems: Constitutional-no fever or chills ENT-no blurred vision, no double vision, no epistaxis, no sore throat Respiratory-no cough, no wheezing, no shortness of breath Cardiac-no palpitations, no chest pain, no syncope GI-no nausea, vomiting, diarrhea, melena, hematochezia -no urinary retention, no urinary incontinence, no dysuria, no hematuria Musculoskeletal-no joint pain, no muscle tenderness Skin-contusion and ecchymosis over the bridge of the nose. Neuro-generalized weakness. No focal deficits Psych-no depression, no anxiety Physical Exam 2 Physical Exam: General-alert and oriented x3, no fever, no chills HEENT-head atraumatic and normocephalic, pupils equal and reactive to light, extraocular muscles intact Neck-no lymphadenopathy or thyromegaly, trachea midline Chest-clear to auscultation. No rales, wheezing or rhonchi Cardiac-regular rate and rhythm, normal S1 and S2 Abdomen-normal bowel sounds, no hepatosplenomegaly Extremities-no cyanosis, clubbing, or edema Neuro-cranial nerves II through XII intact, chronic right hemiparesis from old CVA, generalized weakness Psych-normal affect, normal mood Results & Data Results & Data Vital Signs (Past 12 Hours) Vital Signs Temp Pulse Pulse Resp BP Pulse Ox O2 Del Method 09/30/23 14:53 76 09/30/23 14:00 65 09/30/23 11:02 36.8 C 79 16 107/64 97 Room Air 09/30/23 07:16 36.8 C 64 18 121/73 97 Room Air 09/30/23 07:10 Room Air Laboratory Results 09/30/23 06:33 09/30/23 06:33 PG Care Time/CCT Total # of Minutes Spent Total Time Spent with Patient: Total time spent is greater than 50% in coordination of care (as documented) at patient's floor/unit and/or counseling patient: Coding Level of Care Code 28703 SUB INP/OBS CARE 2/35MIN Diagnoses Rhabdomyolysis M62.82 Hyponatremia E87.1 Unwitnessed fall R29.6 Hemiplegia G81.90 Hemiplegia type: spastic Hemiplegia etiology: late effect of cerebrovascular disease Hemiplegia laterality: right dominant side Elevated troponin R79.89 Failure to thrive in adult R62.7 Transaminitis R74.01 Metabolic encephalopathy G93.41 (4) Hemiplegia Hemiplegia type: spastic Hemiplegia etiology: late effect of cerebrovascular disease Hemiplegia laterality: right dominant side
[2023-10-01 06:50] LABS: Basophils # (auto) 0.03 K/uL (0.00-0.20); Basophils % (auto) 0.6 %; Eosinophils # (auto) 0.17 K/uL (0.00-0.50); Eosinophils % (auto) 3.4 %; Hematocrit (blood only) 31.9 % (37.0-47.0); Hemoglobin 10.8 g/dl (12.0-16.0); Immature Granulocytes # (auto) 0.01 K/uL (0.01-0.20); Immature Granulocytes % (auto) 0.2 %; Lymphocytes # (auto) 1.38 K/uL (1.20-3.40); Lymphocytes % (auto) 27.3 %; Mean Corpuscular Hemoglobin 30.2 pg (25.0-34.0); Mean Corpuscular Hgb Conc 33.9 g/dL (32.0-36.0); Mean Corpuscular Volume 89.1 fL (80.0-100.0); Mean Platelet Volume 10.7 fL (9.4-12.4); Monocytes # (auto) 0.71 K/uL (0.11-0.59); Neutrophils # (auto) 2.76 K/uL (1.40-6.50); Neutrophils % (auto) 54.5 %; Platelet Count 289 K/uL (130-400); RDW Coefficient of Variation 12.9 % (11.5-14.5); RDW Standard Deviation 42.5 fL (36.4-46.3); Red Blood Count 3.58 M/uL (4.20-5.40); White Blood Count 5.06 K/ul (4.8-10.8)
[2023-10-01 07:07] LABS: Albumin Globulin Ratio 1.7 (0.9-2); Albumin Level 3.1 gm/dl (3.4-5.0); BUN Creatinine Ratio 14.3 (10-20); Bilirubin,Total 0.6 mg/dl (0.2-1.0); Calcium 7.9 mg/dl (8.6-10.3); Creatinine Clr Calc Pharmacy 132.8 ml/min; Est GFR (African American) 129.6 ml/min; Est GFR (Non-African American) 111.8 ml/min; Globulin 1.8 gm/dl (2.5-4.0); Potassium 3.7 mmol/L (3.5-5.1); Total Protein 4.9 gm/dl (6.0-8.3)
--- NOTE | 2023-10-01 12:43 | Hospitalist Progress Note ---
Date of Service October 01, 2023 Assessment & Plan (1) Rhabdomyolysis: Plan: Continued improvement. Creatinine kinase is down to 998 today, September 30. This will eventually normalize. Renal function is stable. IV fluids discontinued today, September 30. Serial labs (2) Hyponatremia: Plan: With hypoosmolarity. Suspect SIADH. Sodium is now stable at 133. Continue serial labs. (3) Unwitnessed fall: Plan: She apparently suffered a nasal fracture when she fell but she denies syncope. She was too weak to get up off the floor however. OT and PT assessments noted. Hopeful discharge to [facility] but [facility] is the backup plan. 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 Head CT scan on admission reveals no new findings. Supportive care. (5) Elevated troponin: Plan: Appears to be due to demand ischemia. No evidence of acute coronary syndrome. Denies chest pain (6) Failure to thrive in adult: Plan: Supportive care. Continue OT and PT. (7) Transaminitis: Plan: Mildly elevated liver enzymes on admission. LFTs are now downtrending. Serial labs (8) Metabolic encephalopathy: Plan: POA. Now resolved Plan Hopeful discharge to [facility] when arrangements are finalized Admission and Anticipated Discharge Date Admission Date: September 28, 2023 Subjective Alert. Friends are at the bedside. No new problems Review of Systems 2 Review of Systems: Constitutional-no fever or chills ENT-no blurred vision, no double vision, no epistaxis, no sore throat Respiratory-no cough, no wheezing, no shortness of breath Cardiac-no palpitations, no chest pain, no syncope GI-no nausea, vomiting, diarrhea, melena, hematochezia -no urinary retention, no urinary incontinence, no dysuria, no hematuria Musculoskeletal-no joint pain, no muscle tenderness Skin-contusion and ecchymosis over the bridge of the nose. Neuro-generalized weakness. Chronic right hemiparesis from old CVA Psych-no depression, no anxiety Physical Exam 2 Physical Exam: General-alert and oriented x3, no fever, no chills HEENT-head atraumatic and normocephalic, pupils equal and reactive to light, extraocular muscles intact Neck-no lymphadenopathy or thyromegaly, trachea midline Chest-clear to auscultation. No rales, wheezing or rhonchi Cardiac-regular rate and rhythm, normal S1 and S2 Abdomen-normal bowel sounds, no hepatosplenomegaly Extremities-no cyanosis, clubbing, or edema Neuro-cranial nerves II through XII intact, chronic right hemiparesis from old CVA, generalized weakness Psych-normal affect, normal mood Results & Data Results & Data Vital Signs (Past 12 Hours) Vital Signs Temp Pulse Resp BP Pulse Ox O2 Del Method 10/01/23 10:56 36.8 C 73 18 123/74 98 Room Air 10/01/23 07:28 37.0 C 71 19 129/74 98 Room Air 10/01/23 02:30 36.9 C 73 16 130/72 97 Room Air Laboratory Results 10/01/23 06:20 10/01/23 06:20 PG Care Time/CCT Total # of Minutes Spent Total Time Spent with Patient: Total time spent is greater than 50% in coordination of care (as documented) at patient's floor/unit and/or counseling patient: Coding Level of Care Code 55297 SUB INP/OBS CARE 2/35MIN Diagnoses Rhabdomyolysis M62.82 Hyponatremia E87.1 Unwitnessed fall R29.6 Hemiplegia G81.90 Hemiplegia type: spastic Hemiplegia etiology: late effect of cerebrovascular disease Hemiplegia laterality: right dominant side Elevated troponin R79.89 Failure to thrive in adult R62.7 Transaminitis R74.01 Metabolic encephalopathy G93.41 (4) Hemiplegia Hemiplegia type: spastic Hemiplegia etiology: late effect of cerebrovascular disease Hemiplegia laterality: right dominant side
[2023-10-02 06:33] LABS: Basophils # (auto) 0.04 K/uL (0.00-0.20); Basophils % (auto) 0.8 %; Eosinophils # (auto) 0.25 K/uL (0.00-0.50); Eosinophils % (auto) 4.7 %; Hematocrit (blood only) 35.3 % (37.0-47.0); Hemoglobin 11.9 g/dl (12.0-16.0); Immature Granulocytes # (auto) 0.01 K/uL (0.01-0.20); Immature Granulocytes % (auto) 0.2 %; Lymphocytes # (auto) 1.72 K/uL (1.20-3.40); Lymphocytes % (auto) 32.6 %; Mean Corpuscular Hemoglobin 30.3 pg (25.0-34.0); Mean Corpuscular Hgb Conc 33.7 g/dL (32.0-36.0); Mean Corpuscular Volume 89.8 fL (80.0-100.0); Mean Platelet Volume 10.6 fL (9.4-12.4); Monocytes # (auto) 0.95 K/uL (0.11-0.59); Neutrophils # (auto) 2.31 K/uL (1.40-6.50); Neutrophils % (auto) 43.7 %; Platelet Count 337 K/uL (130-400); RDW Coefficient of Variation 13.3 % (11.5-14.5); RDW Standard Deviation 44.2 fL (36.4-46.3); Red Blood Count 3.93 M/uL (4.20-5.40); White Blood Count 5.28 K/ul (4.8-10.8)
[2023-10-02 06:45] LABS: Albumin Globulin Ratio 1.8 (0.9-2); Albumin Level 3.5 gm/dl (3.4-5.0); BUN Creatinine Ratio 16.2 (10-20); Bilirubin,Total 0.6 mg/dl (0.2-1.0); Calcium 8.7 mg/dl (8.6-10.3); Creatinine Clr Calc Pharmacy 125.7 ml/min; Est GFR (African American) 127.3 ml/min; Est GFR (Non-African American) 109.8 ml/min; Potassium 4.1 mmol/L (3.5-5.1); Total Protein 5.5 gm/dl (6.0-8.3)
--- NOTE | 2023-10-02 11:43 | Hospitalist Progress Note ---
Date of Service October 02, 2023 Assessment & Plan (1) Rhabdomyolysis: Plan: Continued improvement. Creatinine kinase is down to 613 today, October 01. This will eventually normalize. Renal function is stable. IV fluids discontinued on September 30. Serial labs (2) Hyponatremia: Plan: With hypoosmolarity on admission. Suspect SIADH. Sodium is now stable at 133. Continue serial labs. (3) Unwitnessed fall: Plan: She apparently suffered a nasal fracture when she fell but she denies syncope. She was too weak to get up off the floor however. OT and PT assessments noted. Insurance denied IPR. SNF placement is the next best option. Case management aware. 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 Head CT scan on admission reveals no new findings. Supportive care. (5) Elevated troponin: Plan: Appears to be due to demand ischemia. No evidence of acute coronary syndrome. Denies chest pain (6) Failure to thrive in adult: Plan: Supportive care. Continue OT and PT. (7) Transaminitis: Plan: Mildly elevated liver enzymes on admission. LFTs are now downtrending. Serial labs (8) Metabolic encephalopathy: Plan: POA. Now resolved Plan Discharge to SNF when arrangements are finalized Admission and Anticipated Discharge Date Admission Date: September 28, 2023 Subjective Alert and oriented. No new problems. Case management pursuing SNF placement since IPR denied by insurance. Review of Systems 2 Review of Systems: Constitutional-no fever or chills ENT-no blurred vision, no double vision, no epistaxis, no sore throat Respiratory-no cough, no wheezing, no shortness of breath Cardiac-no palpitations, no chest pain, no syncope GI-no nausea, vomiting, diarrhea, melena, hematochezia -no urinary retention, no urinary incontinence, no dysuria, no hematuria Musculoskeletal-no joint pain, no muscle tenderness Skin-contusion and ecchymosis over the bridge of the nose. Neuro-generalized weakness. Chronic right hemiparesis from old CVA Psych-no depression, no anxiety Physical Exam 2 Physical Exam: General-alert and oriented x3, no fever, no chills HEENT-head atraumatic and normocephalic, pupils equal and reactive to light, extraocular muscles intact Neck-no lymphadenopathy or thyromegaly, trachea midline Chest-clear to auscultation. No rales, wheezing or rhonchi Cardiac-regular rate and rhythm, normal S1 and S2 Abdomen-normal bowel sounds, no hepatosplenomegaly Extremities-no cyanosis, clubbing, or edema Neuro-cranial nerves II through XII intact, chronic right hemiparesis from old CVA, generalized weakness Psych-normal affect, normal mood Results & Data Results & Data Vital Signs (Past 12 Hours) Vital Signs Temp Pulse Pulse Resp BP Pulse Ox O2 Del Method 10/02/23 11:00 36.7 C 76 18 143/80 H 97 Room Air 10/02/23 09:05 Room Air 10/02/23 07:41 36.9 C 68 17 136/72 95 Room Air 10/02/23 07:16 78 10/02/23 02:45 36.9 C 68 20 122/72 97 Room Air Laboratory Results 10/02/23 05:34 10/02/23 05:34 PG Care Time/CCT Total # of Minutes Spent Total Time Spent with Patient: Total time spent is greater than 50% in coordination of care (as documented) at patient's floor/unit and/or counseling patient: Coding Level of Care Code 07353 SUB INP/OBS CARE 2/35MIN Diagnoses Rhabdomyolysis M62.82 Hyponatremia E87.1 Unwitnessed fall R29.6 Hemiplegia G81.90 Hemiplegia type: spastic Hemiplegia etiology: late effect of cerebrovascular disease Hemiplegia laterality: right dominant side Elevated troponin R79.89 Failure to thrive in adult R62.7 Transaminitis R74.01 Metabolic encephalopathy G93.41 (4) Hemiplegia Hemiplegia type: spastic Hemiplegia etiology: late effect of cerebrovascular disease Hemiplegia laterality: right dominant side
[2023-10-03 06:00] LABS: Basophils # (auto) 0.04 K/uL (0.00-0.20); Basophils % (auto) 0.6 %; Eosinophils # (auto) 0.34 K/uL (0.00-0.50); Eosinophils % (auto) 4.8 %; Hematocrit (blood only) 35.7 % (37.0-47.0); Hemoglobin 12.3 g/dl (12.0-16.0); Immature Granulocytes # (auto) 0.03 K/uL (0.01-0.20); Immature Granulocytes % (auto) 0.4 %; Lymphocytes # (auto) 1.55 K/uL (1.20-3.40); Lymphocytes % (auto) 21.7 %; Mean Corpuscular Hemoglobin 30.1 pg (25.0-34.0); Mean Corpuscular Hgb Conc 34.5 g/dL (32.0-36.0); Mean Corpuscular Volume 87.5 fL (80.0-100.0); Mean Platelet Volume 10.6 fL (9.4-12.4); Monocytes # (auto) 1.38 K/uL (0.11-0.59); Monocytes % (auto) 19.3 %; Neutrophils # (auto) 3.81 K/uL (1.40-6.50); Neutrophils % (auto) 53.2 %; Platelet Count 365 K/uL (130-400); RDW Coefficient of Variation 13.3 % (11.5-14.5); RDW Standard Deviation 42.7 fL (36.4-46.3); Red Blood Count 4.08 M/uL (4.20-5.40); White Blood Count 7.15 K/ul (4.8-10.8)
[2023-10-03 06:09] LABS: Albumin Globulin Ratio 1.6 (0.9-2); Albumin Level 3.5 gm/dl (3.4-5.0); BUN Creatinine Ratio 24.4 (10-20); Bilirubin,Total 0.5 mg/dl (0.2-1.0); Calcium 8.8 mg/dl (8.6-10.3); Creatinine Clr Calc Pharmacy 113.4 ml/min; Est GFR (Non-African American) 106.2 ml/min; Globulin 2.2 gm/dl (2.5-4.0); Potassium 4.1 mmol/L (3.5-5.1); Total Protein 5.7 gm/dl (6.0-8.3)
--- NOTE | 2023-10-03 12:27 | Hospitalist Progress Note ---
Date of Service October 03, 2023 Assessment & Plan (1) Rhabdomyolysis: Plan: Continued improvement. Creatinine kinase is down trending and nearly normalized now. CK level 305 today, October 02. Renal function is stable. IV fluids discontinued on September 30. Serial labs (2) Hyponatremia: Plan: With hypoosmolarity on admission. Suspect SIADH. Sodium is acceptable and stable at 130. Continue serial labs. (3) Unwitnessed fall: Plan: She apparently suffered a nasal fracture when she fell but she denies syncope. She was too weak to get up off the floor however. OT and PT assessments noted. Insurance denied IPR. SNF placement is the next best option. Case management aware. 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 Head CT scan on admission reveals no new findings. Supportive care. (5) Elevated troponin: Plan: Appears to be due to demand ischemia. No evidence of acute coronary syndrome. Denies chest pain (6) Failure to thrive in adult: Plan: Supportive care. Continue OT and PT. (7) Transaminitis: Plan: Mildly elevated liver enzymes on admission. LFTs are now downtrending. Serial labs (8) Metabolic encephalopathy: Plan: POA. Now resolved Plan Discharge to SNF when arrangements are finalized. Hopefully to [facility] on October 04 Admission and Anticipated Discharge Date Admission Date: September 28, 2023 Subjective Alert and oriented. Pleasant. No new problems. CK has nearly normalized down to 305. Liver function enzymes are now normal. Sodium down slightly but acceptable at 130. Hopeful discharge to [facility] on October 04 Review of Systems 2 Review of Systems: Constitutional-no fever or chills ENT-no blurred vision, no double vision, no epistaxis, no sore throat Respiratory-no cough, no wheezing, no shortness of breath Cardiac-no palpitations, no chest pain, no syncope GI-no nausea, vomiting, diarrhea, melena, hematochezia -no urinary retention, no urinary incontinence, no dysuria, no hematuria Musculoskeletal-no joint pain, no muscle tenderness Skin-contusion and ecchymosis over the bridge of the nose. Neuro-generalized weakness. Chronic right hemiparesis from old CVA Psych-no depression, no anxiety Physical Exam 2 Physical Exam: General-alert and oriented x3, no fever, no chills HEENT-head atraumatic and normocephalic, pupils equal and reactive to light, extraocular muscles intact Neck-no lymphadenopathy or thyromegaly, trachea midline Chest-clear to auscultation. No rales, wheezing or rhonchi Cardiac-regular rate and rhythm, normal S1 and S2 Abdomen-normal bowel sounds, no hepatosplenomegaly Extremities-no cyanosis, clubbing, or edema Neuro-cranial nerves II through XII intact, chronic right hemiparesis from old CVA, generalized weakness Psych-normal affect, normal mood Results & Data Results & Data Vital Signs (Past 12 Hours) Vital Signs Temp Pulse Pulse Resp BP Pulse Ox O2 Del Method 10/03/23 11:59 37.1 C 18 129/76 96 Room Air 10/03/23 08:36 Room Air 10/03/23 07:14 37.1 C 75 18 112/70 94 Room Air 10/03/23 07:00 84 10/03/23 03:16 37.3 C 76 18 123/73 95 Room Air Laboratory Results 10/03/23 05:20 10/03/23 05:20 PG Care Time/CCT Total # of Minutes Spent Total Time Spent with Patient: Total time spent is greater than 50% in coordination of care (as documented) at patient's floor/unit and/or counseling patient: Coding Level of Care Code 46943 SUB INP/OBS CARE 2/35MIN Diagnoses Rhabdomyolysis M62.82 Hyponatremia E87.1 Unwitnessed fall R29.6 Hemiplegia G81.90 Hemiplegia type: spastic Hemiplegia etiology: late effect of cerebrovascular disease Hemiplegia laterality: right dominant side Elevated troponin R79.89 Failure to thrive in adult R62.7 Transaminitis R74.01 Metabolic encephalopathy G93.41 (4) Hemiplegia Hemiplegia type: spastic Hemiplegia etiology: late effect of cerebrovascular disease Hemiplegia laterality: right dominant side
[2023-10-04 07:43] LABS: BUN Creatinine Ratio 22.5 (10-20); Calcium 8.8 mg/dl (8.6-10.3); Creatinine Clr Calc Pharmacy 116.2 ml/min; Potassium 3.8 mmol/L (3.5-5.1)
--- NOTE | 2023-10-04 14:54 | Hospitalist Progress Note ---
Date of Service October 04, 2023 Assessment & Plan (1) Rhabdomyolysis: Plan: Resolved. Renal function is stable. IV fluids discontinued on September 30. Serial labs (2) Hyponatremia: Plan: With hypoosmolarity on admission. Suspect SIADH. Sodium is now acceptable and stable. Continue serial labs. (3) Unwitnessed fall: Plan: She apparently suffered a nasal fracture when she fell but she denies syncope. She was too weak to get up off the floor however. OT and PT assessments noted. Insurance denied IPR. SNF placement is the next best option. Case management aware. 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 Head CT scan on admission reveals no new findings. Supportive care. (5) Elevated troponin: Plan: Appears to be due to demand ischemia. No evidence of acute coronary syndrome. Denies chest pain (6) Failure to thrive in adult: Plan: Supportive care. Continue OT and PT while hospitalized. SNF placement at discharge. (7) Transaminitis: Plan: Mildly elevated liver enzymes on admission. LFTs are now downtrending. Serial labs (8) Metabolic encephalopathy: Plan: POA. Now resolved (9) Superficial thrombophlebitis of arm: Plan: From previous IV site. Warm compresses ordered. Local care Plan Discharge to SNF when arrangements are finalized. Hopefully to [facility] on October 04 Admission and Anticipated Discharge Date Admission Date: September 28, 2023 Subjective Alert and oriented. She has thrombophlebitis superficially in the left antecubital fossa from her previous IV site. Heating pad has been ordered. Sodium stable at 131. Hopeful discharge to [facility] tomorrow, October 04 Review of Systems 2 Review of Systems: Constitutional-no fever or chills ENT-no blurred vision, no double vision, no epistaxis, no sore throat Respiratory-no cough, no wheezing, no shortness of breath Cardiac-no palpitations, no chest pain, no syncope GI-no nausea, vomiting, diarrhea, melena, hematochezia -no urinary retention, no urinary incontinence, no dysuria, no hematuria Musculoskeletal-no joint pain, no muscle tenderness Skin-contusion and ecchymosis over the bridge of the nose from falling at home. Superficial thrombophlebitis left antecubital fossa Neuro-generalized weakness. Chronic right hemiparesis from old CVA Psych-no depression, no anxiety Physical Exam 2 Physical Exam: General-alert and oriented x3, no fever, no chills HEENT-head atraumatic and normocephalic, pupils equal and reactive to light, extraocular muscles intact Neck-no lymphadenopathy or thyromegaly, trachea midline Chest-clear to auscultation. No rales, wheezing or rhonchi Cardiac-regular rate and rhythm, normal S1 and S2 Abdomen-normal bowel sounds, no hepatosplenomegaly Extremities-no cyanosis, clubbing, or edema Neuro-cranial nerves II through XII intact, chronic right hemiparesis from old CVA, generalized weakness Psych-normal affect, normal mood Results & Data Results & Data Vital Signs (Past 12 Hours) Vital Signs Temp Pulse Pulse Resp BP Pulse Ox O2 Del Method 10/04/23 14:30 86 10/04/23 11:38 37.2 C 90 20 107/68 95 Room Air 10/04/23 07:45 37.2 C 68 16 122/71 94 Room Air 10/04/23 07:00 70 10/04/23 03:15 36.7 C 71 16 120/74 96 Room Air Laboratory Results 10/03/23 05:20 10/04/23 06:18 PG Care Time/CCT Total # of Minutes Spent Total Time Spent with Patient: Total time spent is greater than 50% in coordination of care (as documented) at patient's floor/unit and/or counseling patient: Coding Level of Care Code 55627 SUB INP/OBS CARE 3/50MIN Diagnoses Rhabdomyolysis M62.82 Hyponatremia E87.1 Unwitnessed fall R29.6 Hemiplegia G81.90 Hemiplegia type: spastic Hemiplegia etiology: late effect of cerebrovascular disease Hemiplegia laterality: right dominant side Elevated troponin R79.89 Failure to thrive in adult R62.7 Transaminitis R74.01 Metabolic encephalopathy G93.41 Superficial thrombophlebitis of arm I80.8 (4) Hemiplegia Hemiplegia type: spastic Hemiplegia etiology: late effect of cerebrovascular disease Hemiplegia laterality: right dominant side
[2023-10-05 07:07] LABS: BUN Creatinine Ratio 24.4 (10-20); Calcium 8.7 mg/dl (8.6-10.3); Creatinine Clr Calc Pharmacy 113.4 ml/min; Est GFR (Non-African American) 106.2 ml/min; Potassium 3.8 mmol/L (3.5-5.1)
--- NOTE | 2023-10-05 13:13 | Hospitalist Progress Note ---
Date of Service October 05, 2023 Assessment & Plan (1) Rhabdomyolysis: Plan: Resolved. Secondary to prolonged length of time on ground with fall Renal function is stable. IV fluids discontinued on September 30. No further CK checks needed (2) Hyponatremia: Plan: With hypoosmolarity on admission. Na+ at baseline around 131-135 and likely reset osmostat due to previous large CVA Na+ 124 on admission from hypovolemia and now back to baseline at 131 for several days Urine Na+ <10 on admission and Ur Osm 700s consistent with hypovolemia No need to check BMP further while hospitalized, follow as outpt periodically Usiuxdbsjpe-iefpiqts-mz po KCl (3) Unwitnessed fall: Plan: She apparently suffered a nasal fracture when she fell but she denies syncope.She cannot recall what happened She was too weak to get up off the floor however. 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 Head CT scan on admission reveals no new findings. Supportive care. continue home cymbalta,Lyrica for neuropathic pain Continue donepezil for vascular dementia continue Plavix (5) Elevated troponin: Plan: Appears to be due to demand ischemia. Trop mildly elevated at 24/25. No evidence of acute coronary syndrome. Denies chest pain (6) Transaminitis: Plan: Mildly elevated liver enzymes on admission secondary to rhabdo-improved (7) Metabolic encephalopathy: Plan: POA. Now resolved (8) Superficial thrombophlebitis of arm: Plan: From previous IV site. Warm compresses ordered. Local care Plan Dispo- Discharge to SNF at [facility] tomorrow as no bed available today. DOwngrade to medical DVT prophylaxis-SQ Lovenox Admission and Anticipated Discharge Date Admission Date: September 28, 2023 Subjective Pt denies pain, is moving bowels, has a low appetite. Tele with NSR normal rates. No other complaints. Is disappointed that she can't go to the rehab today Physical Exam Constitutional: WD/WN, vitals as above Respiratory: normal respiratory effort, lungs clear to auscultation Cardiovascular: RRR, no murmur, no edema Gastrointestinal (Abdomen): normal bowel sounds, soft, nontender, no hepatosplenomegaly Neurologic: + focal motor deficit (dense right hemip aresis with contracture RUE) Results & Data Results & Data Vital Signs (Past 12 Hours) Vital Signs Temp Pulse Resp BP Pulse Ox O2 Del Method 10/05/23 11:06 36.5 C 81 18 116/71 97 Room Air 10/05/23 08:01 36.3 C L 10/05/23 08:01 71 18 125/75 96 Room Air 10/05/23 04:39 36.9 C 77 18 111/65 95 Room Air Laboratory Results BMP reviewed PG Care Time/CCT Total # of Minutes Spent Total Time Spent with Patient: Total time spent is greater than 50% in coordination of care (as documented) at patient's floor/unit and/or counseling patient: Coding Level of Care Code 64665 SUB INP/OBS CARE 04/02MIN Diagnoses Rhabdomyolysis M62.82 Hyponatremia E87.1 Unwitnessed fall R29.6 Hemiplegia G81.90 Hemiplegia type: spastic Hemiplegia etiology: late effect of cerebrovascular disease Hemiplegia laterality: right dominant side Elevated troponin R79.89 Transaminitis R74.01 Metabolic encephalopathy G93.41 Superficial thrombophlebitis of arm I80.8 (4) Hemiplegia Hemiplegia type: spastic Hemiplegia etiology: late effect of cerebrovascular disease Hemiplegia laterality: right dominant side
[2023-10-05] MEDS ORDERED: BACLOFEN 10 MG TAB PO PRN (17:26)
[2023-10-05] MEDS: ATORVASTATIN 10 MG TAB PO SCH (19:46)
--- NOTE | 2023-10-06 08:47 | Discharge Summary ---
Discharge Summary Date of Service October 06, 2023 Principal Dx & Hospital Course #1 = Principal Diagnosis (1) Rhabdomyolysis: Resolved. Secondary to prolonged length of time on ground with fall Renal function is stable. IV fluids discontinued on September 30. No further CK checks needed (2) Hyponatremia: With hypoosmolarity on admission. Na+ at baseline around 131-135 and likely reset osmostat due to previous large CVA Na+ 124 on admission from hypovolemia and now back to baseline at 131 for several days Urine Na+ <10 on admission and Ur Osm 700s consistent with hypovolemia No need to check BMP further while hospitalized, follow as outpt periodically Gtvjvdwtoje-twfgcfuh-oyw po KCl bid and return to home dose of 10 meq po once daily (3) Unwitnessed fall: She apparently suffered a nasal fracture when she fell but she denies syncope.She cannot recall what happened She was too weak to get up off the floor however. 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 Head CT scan on admission reveals no new findings. Supportive care. continue home cymbalta,Lyrica for neuropathic pain Continue donepezil for vascular dementia continue Plavix (5) Elevated troponin: Appears to be due to demand ischemia. Trop mildly elevated at 24/25. No evidence of acute coronary syndrome. Denies chest pain (6) Transaminitis: Mildly elevated liver enzymes on admission secondary to rhabdo-improved (7) Metabolic encephalopathy: POA. Now resolved (8) Superficial thrombophlebitis of arm: From previous IV site. Warm compresses ordered. Local care Plan Dispo- Discharge to SNF at [facility] today DVT prophylaxis-SQ Lovenox Notes For Next Care Provider Needs ENT f/u for nasal bone fracture Medication Changes From Visit None Admission HPI Per Admitting Provider Denise is a 68-year-old female with a past medical history significant for left hemispheric stroke occurring in 1998 in the context of oral contraceptive use with resultant chronic residual right hemiparesis, right hemisensory loss, and incomplete expressive aphasia, Probable mild vascular dementia, lumbar postlaminectomy syndrome with presence of intrathecal pain pump who presented to the [facility] ED via EMS on 09/28/2023 who was reportedly found down on the ground at home covered in dried feces. Patient reportedly lives at home alone. She was noted to be tachycardic with heart rate of 95 on arrival but otherwise stable. Labs were significant for sodium of 124, chloride of 89, glucose of 100, total CK of 11,667, initial high-sensitivity troponin of 26. CT of the head and brain without contrast, CT of the cervical spine without contrast, chest x-ray, and x-ray of the pelvis were read as negative for acute findings. CT of the face without contrast notes age-indeterminate bilateral nasal bone fractures with displacement and angulation on the right, new from 2016. Severe degeneration at the temporomandibular joints. CT of the abdomen pelvis with IV contrast was read as negative for acute intra-abdominal or intrapelvic abnormalities. No definite acute fracture identified. Colonic diverticulosis. And incidental findings as above include evidence of hardware loosening involving the right T11 pedicle screw. Prior to admission the patient was started on normal saline at 125 mL/h. Patient was lying in bed in no acute distress at the time of the exam with friend bedside, history was mainly obtained from her friend due to patient's current status. Her friend explains that the patient lives at home alone, does not have home health, and only has a customer service engineer comes once a week to assist her. Her only relative is her sister who lives in [place]. One of their other friends found the patient on the ground at home, naked, in her bedroom earlier today with dried feces. The patient was found in the position. They checked on her today as they had not heard from her since 09/26/2023. They believe she may have fallen the morning of 09/26/2023 as she normally takes a shower in the morning and was found naked in her room. When asked, the patient notes pain in her lower back but is unable to give specific details. When asked specifically about head pain, neck pain, mid back pain, chest pain, abdominal pain, hip pain, and bilateral leg pain she denies these. She is currently oriented to person, place, and month but told me it was 2018 and cannot tell me why she was brought to the hospital. Because of this, we will keep her full code per her last admission in 2021 until we can speak with family and see if her mental status improved with treatment of her acute issues. Please for Dr. Jin's attestation for any changes to the treatment plan Discharge Exam Constitutional WD/WN, vitals as above Respiratory normal respiratory effort, lungs clear to auscultation Cardiovascular RRR, no murmur, no edema Gastrointestinal (Abdomen) normal bowel sounds, soft, nontender, no hepatosplenomegaly Neurologic + focal motor deficit (dense right hemiparesis with contracture RUE) Updated Medication List Medication Instructions Recorded Confirmed Type pyridoxine (vitamin B6) 50 mg 50 mg PO WK 08/01/20 09/28/23 History capsule (Vitamin B-6) baclofen 40,000 mcg/20 mL (2,000 0 mcg continuous intrathecal 08/04/21 09/28/23 History mcg/mL) intrathecal solution infusion UD baclofen 10 mg tablet 10 mg PO DAILY PRN spasms #90 tabs 12/01/22 09/28/23 Rx celecoxib 200 mg capsule 200 mg PO QAM #90 caps 03/20/23 09/28/23 Rx clopidogrel 75 mg tablet 75 mg PO HS #90 tabs 03/20/23 09/28/23 Rx donepezil 10 mg tablet 10 mg PO DAILY #90 tabs 03/20/23 09/28/23 Rx memantine 10 mg tablet 10 mg PO BID 90 days #180 tabs 03/20/23 09/28/23 Rx potassium chloride 10 mEq 10 meq PO DAILY 06/15/23 09/28/23 History capsule,extended release valacyclovir 500 mg tablet 500 mg PO BID PRN Other 06/15/23 09/28/23 History pregabalin 100 mg capsule 100 mg PO TID #270 caps 08/28/23 09/28/23 Rx duloxetine 30 mg capsule,delayed 30 mg PO DAILY #30 caps 09/22/23 09/28/23 Rx release (Cymbalta) atorvastatin 10 mg tablet 10 mg PO UD 09/28/23 09/28/23 History Hospital Stay Data Consultations 09/28/23 17:52 ED Decision to Admit Stat Diagnostic Imagining Performed 09/28/23 16:29 CT abd pelvis IV con only Stat CT cervical spine wo con Stat CT facial bones wo con Stat CT head/brain wo con Stat Pending Results Patient Have Any Pending Studies at Discharge: No Discharge Instructions Given to Patient (Per Discharging Provider) You were admitted after a fall from which she were not able to get up again. This caused breakdown of your muscles and a condition called rhabdomyolysis. He also had a very low sodium level. All of this is much improved and you now need rehab for strengthening. You can continue warm compresses to the superficial thrombophlebitis from your IV site in the left arm. Total Time Total Time Spent Total Time Spent (In Minutes): 35 min Total Time Includes: Examination of the Patient, Discharge Planning and Medication Reconciliation Coding Level of Care Code 88379 INP/OBS DISCH >30 MIN Diagnoses Rhabdomyolysis M62.82 Hyponatremia E87.1 Unwitnessed fall R29.6 Hemiplegia G81.90 Hemiplegia etiology: late effect of cerebrovascular disease Hemiplegia laterality: right dominant side Hemiplegia type: spastic Elevated troponin R79.89 Transaminitis R74.01 Metabolic encephalopathy G93.41 Superficial thrombophlebitis of arm I80.8
== END 2023-10-06 12:58 | DRG 557 ==
LOC: ED 16:09 → 2S 18:53 → SUATTDRO 18:53 → 2S 22:03 → 3W 10-05 17:11

== ENCOUNTER 2023-10-26 15:09 | Observation (INO) ==
--- NOTE | 2023-10-26 16:04 | Emergency Department Note ---
Impression & Plan Weakness, History of CVA (cerebrovascular accident), Multiple falls ED Provider Note NAME: COCO HOLLY AGE: 68 SEX: Female INFORMANT: Patient ED PROVIDER(S): Vijay Barajas MD CHIEF COMPLAINT: Fall PLAN: Disposition: Admitted Outpatient prescription management: none Referral: None MEDICAL DECISION MAKING: Patient was made a trauma alert and I promptly evaluated her as she was being placed into the stretcher and on the monitor. She denied any pain but there was an obvious contusion of the right shoulder present. She had generalized weakness noted that was more so on the right side. She has a history of right sided weakness from her prior stroke. She reported to friends and that she felt more weak prior to ED arrival. Based upon the symptoms patient seems to be out of any window for TNK consideration. She underwent trauma imaging of the head and neck as well as stroke imaging. Blood work, chest x-ray and urinalysis performed. Patient was unsteady on ambulatory trial. She was not orthostatic. Given the history of fall with incontinence and not remembering the event there is concern about possible seizure. Primary record review indicated primary doctor was concerned for the same this week. Consulted with Dr. Ch of neurology. Difficult to say at this point if it was a seizure. Patient could be considered for Keppra therapy but MRI was recommended first. Patient agreeable to stay for workup. Consultation was made with Dr. Lupillo Trinh of the [facility] service. Discussed neurology recommendation and patient's presentation. Given patient's pain pump further investigation be necessary to clear her for MR imaging. Patient was evaluated in the ER for further management. Care/management discussed with: manager of construction Level of care consideration(s): After review of the information above and other included data, I feel the patient requires escalation of care to admission Triage Nursing notes: reviewed and agree them. Vital Signs: reviewed and remarkable for no significant abnormalities Additional History obtained from: Patient's friend who was present. States the patient did have an episode of incontinence at home. No reported LOC. Chronic Medical/Social Conditions affecting care: History of CVA. Right-sided hemiplegia. Prior/ Outside/ External records reviewed: none Differential Diagnosis: CVA, TIA, trauma,Infection, dehydration, metabolic abnormality, hypo/hyperglycemia, electrolyte disturbance, anemia, hypoxia, cardiac sources, intracerebral event, toxicologic, neurologic, as well as other pathologies. Diagnostics, independently interpreted by me: ECG: Twelve-lead ECG reveals normal sinus rhythm at 75 bpm. Low voltage QRS, poor R wave progression. Cardiac Monitoring: Cardiac monitoring ordered by me: The patient was placed on continuous cardiac monitoring and observed. It revealed a normal sinus rhythm at 64 beats per minute without ectopy or evidence of dysrhythmia. Medical decision rules: none Imaging studies: Head CT: A noncontrast CT scan of the head was performed and was negative for tumor, fracture, intracranial hemorrhage, or other acute pathology. Old stroke noted. I refer you to the EMR for further details. HPI: 68 year old Female arrives for evaluation of multiple falls. Patient has fallen multiple times in the last few days.. Friend is present helps with history. Notes patient did complain of increased right-sided weakness. Patient has a history of stroke about 20 years ago affecting the right side. Patient denies any head injury or neck pain. She has a bruise on her right shoulder but states that is not from the current falls. She denies any pain there. Given the multiple falls and weakness EMS was summoned the patient was brought to the ER for further evaluation. Pt denies LOC, headache, visual changes, neck pain, chest pain, breathing difficulties, nausea, vomiting, abdominal pain, back pain, extremity pain, numbness, open wounds, active bleeding, or other complaints. PAST MEDICAL HISTORY: See Below, CVA PAST SURGICAL HISTORY: See Below, SOCIAL HISTORY: See Below, lives alone HOME MEDICATIONS: See Below ALLERGIES: See Below VITALS: See Below PHYSICAL EXAMINATION: GENERAL: Awake, tired-appearing, in no distress HENT: Normocephalic, atraumatic. Oropharynx unremarkable. EYES: Normal conjunctiva. Sclera non-icteric. Left subconjunctival hemorrhage present. No signs of infection. PERRLA. EOMI. NECK: Inspection normal. Non-tender. Supple. No nuchal rigidity. FROM. No masses. RESPIRATORY: Clear to auscultation. No wheezes. No rales. Normal respiratory effort. CARDIAC: Normal rate. Normal rhythm. No murmurs. No rubs. Extremities warm and well perfused. Pulses equal. No JVD. GI: Soft, non-distended. No tenderness to palpation. No rebound or guarding. No masses. RECTAL: Deferred. MUSCULOSKELETAL: Atraumatic. Chest examination reveals no tenderness. The back is symmetrical on inspection without obvious abnormality. There is no CVA tenderness to palpation. No joint edema. LOWER EXTREMITIES: Calves are equal size bilaterally and non-tender. No edema. No discoloration. NEURO: Normal sensorium. No sensory deficits noted. Patient has moderate right leg weakness with drift. There is some contracture of the right hand. Speech is slow. Mild dysarthria present. SKIN: No rash or jaundice noted. PROCEDURES: none CRITICAL CARE: none OBSERVATION NOTE: none Past Med/Surg History Problem List (Updated 10/26/23 @ 16:04 by Vijay Barajas MD) Multiple falls (Acute) Weakness (Acute) Malnutrition compromising bodily function Seizure Superficial thrombophlebitis of arm Hyponatremia Lumbar pain Hemiplegia Right side > wears AFO brace on RLE, no control of right arm Weight loss Aphasia due to disease due to b12 deficiency B12 deficiency expressive aphasia Hypokalemia Fall (on) (from) other stairs and steps, initial encounter Osteoarthritis Encounter for routine gynecological examination Aphasia, post-stroke Executive function deficit Hemiparesis affecting right side as late effect of cerebrovascular accident Presence of intrathecal pump Sacroiliac inflammation Carpal tunnel syndrome (Chronic) Neck pain (Acute) Lumbar postlaminectomy syndrome (Chronic) History of lumbar fusion (Chronic) X 2 Change in bowel habits History of cerebrovascular accident from left carotid artery occlusion involving left middle cerebral artery territory Aphasia as late effect of cerebrovascular accident History of CVA (cerebrovascular accident) (Chronic) 1998 large left MCA territory in setting of occluded left carotid potentially related to oral contraception at that time > chronic spastic right hemiparesis, flaccid upper limb and mild to moderate expressive aphasia > on plavix > follows with [place] neuro Medical History External constriction of left ring finger, initial encounter Sciatica Osteoporosis with fracture Hyperplastic colon polyp Ring or other jewelry causing external constriction, initial encounter Hyponatremia Fall Closed femur fracture Memory loss Left carotid artery occlusion Vasovagal syncope if not laying flat during blood draws Encounter for pre-operative examination Memory problem History of depression 1998 per pt Hypertension controlled, stable per pt Chronic constipation with overflow 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 (CVA) 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 (CVA) CVA (cerebral vascular accident) Laceration of eyebrow, right Head trauma Osteoporosis Stroke Surgical History Family history of reaction to anesthesia Mother: slow to wake History of gynecologic surgery Labial "removal" History of back surgery Lumbar fusion x2 History of colonoscopy History of tooth extraction History of tonsillectomy Family History Father Cancer Family history of esophageal cancer Other No pertinent family history Denies family history of Ovarian cancer Prostate cancer Diabetes Myocardial infarction Breast cancer Colorectal cancer Hypertension Social History Smoking Status: Former smoker Age Started Using Tobacco: 12; Age Quit Using Tobacco: 22; Second Hand Exposure: No; Do You Dip or Chew Tobacco: No; Hx Alcohol Use: No Hx Substance Use: No Preferred Language: Polish Communication Ability: Impaired Communication Ability Comment: Expressive aphasia from previous CVA Visual Impairment: No Limitations Senior 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 Beliefs That Will Affect Care: None marital status: Single Current Living Situation: Alone current occupational status: retired How many Children do You have: 0 Feels Safe at Home: Yes Childhood Exposure to Second-Hand Smoke: Yes caffeine: Yes (coffee) Dental Care, Regularly: Yes Physical Activity Frequency: Daily Seatbelt Use: always Sunscreen Use: Yes Assistive Devices: Cane and Walker Allergies Allergies Allergy/AdvReac Type Severity Reaction Status Date / Time cephalexin Allergy Severe Anaphylaxis Verified 10/22/23 08:55 Penicillins AdvReac Mild nausea Verified 10/22/23 08:55 Home Meds Home Medications Medication Instructions Recorded Confirmed pyridoxine (vitamin B6) 50 mg 50 mg PO WK 08/01/20 10/26/23 capsule (Vitamin B-6) baclofen 40,000 mcg/20 mL (2,000 0 mcg continuous intrathecal 08/04/21 10/26/23 mcg/mL) intrathecal solution infusion UD potassium chloride 10 mEq 10 meq PO DAILY 06/15/23 10/26/23 capsule,extended release valacyclovir 500 mg tablet 500 mg PO BID PRN Other 06/15/23 10/26/23 atorvastatin 10 mg tablet 10 mg PO UD 09/28/23 10/26/23 Previous Rx's Medication Instructions Recorded baclofen 10 mg tablet 10 mg PO DAILY PRN spasms #90 tabs 12/01/22 celecoxib 200 mg capsule 200 mg PO QAM #90 caps 03/20/23 clopidogrel 75 mg tablet 75 mg PO HS #90 tabs 03/20/23 donepezil 10 mg tablet 10 mg PO DAILY #90 tabs 03/20/23 memantine 10 mg tablet 10 mg PO BID 90 days #180 tabs 03/20/23 duloxetine 30 mg capsule,delayed 30 mg PO DAILY #30 caps 09/22/23 release (Cymbalta) pregabalin 100 mg capsule 100 mg PO TID #30 caps 10/06/23 cyproheptadine 4 mg tablet 4 mg PO HS #30 tabs 10/22/23 Results & Data (ED) Vital Signs Vital Signs - 24 hr 10/26/23 15:35 10/26/23 16:03 10/26/23 16:12 Temperature 36.9 C 36.8 C Temperature Source Temporal Artery Scan Pulse Rate - Lying Pulse Rate - Sitting Pulse Rate - Standing Pulse Rate 75 68 79 Pulse Rate [Apical] Pulse Rhythm [Apical] Pulse Strength [Apical] Respiratory Rate 18 15 Respiratory Effort / Characteristics Non-Labored Spontaneous Respiratory Depth Normal Respiratory Pattern Regular Blood Pressure - Lying Blood Pressure - Sitting Blood Pressure- Standing Blood Pressure 127/76 147/95 H Blood Pressure [Left Arm] Blood Pressure Mean 93 Blood Pressure Mean [Left Arm] Pulse Oximetry 97 98 Oxygen Delivery Method Room Air Room Air Sepsis Recent Fever Within 48 Hours No Sepsis New/Unexplained Change in Mental Status N/A Sepsis Action Taken by Nursing No Action Required 10/26/23 16:34 10/26/23 16:39 10/26/23 16:40 Temperature 36.5 C 36.5 C Temperature Source Oral Oral Pulse Rate - Lying Pulse Rate - Sitting Pulse Rate - Standing Pulse Rate Pulse Rate [Apical] 69 81 Pulse Rhythm [Apical] Regular Regular Pulse Strength [Apical] Normal Normal Respiratory Rate 17 18 Respiratory Effort / Characteristics Non-Labored Spontaneous Non-Labored Spontaneous Respiratory Depth Normal Normal Respiratory Pattern Regular Regular Blood Pressure - Lying Blood Pressure - Sitting Blood Pressure- Standing Blood Pressure Blood Pressure [Left Arm] 151/86 H 151/86 H Blood Pressure Mean Blood Pressure Mean [Left Arm] 107 107 Pulse Oximetry 96 97 96 Oxygen Delivery Method Room Air Room Air Room Air Sepsis Recent Fever Within 48 Hours Sepsis New/Unexplained Change in Mental Status Sepsis Action Taken by Nursing 10/26/23 17:06 08/19/24 18:19 10/26/23 18:23 Temperature 36.5 C Temperature Source Oral Pulse Rate - Lying 73 79 Pulse Rate - Sitting 72 72 Pulse Rate - Standing 85 Pulse Rate Pulse Rate [Apical] 71 Pulse Rhythm [Apical] Pulse Strength [Apical] Respiratory Rate 16 Respiratory Effort / Characteristics Non-Labored Spontaneous Respiratory Depth Normal Respiratory Pattern Regular Blood Pressure - Lying 146/88 H 158/89 H Blood Pressure - Sitting 152/87 H 164/92 H Blood Pressure- Standing 163/114 H Blood Pressure Blood Pressure [Left Arm] 154/87 H Blood Pressure Mean Blood Pressure Mean [Left Arm] 109 Pulse Oximetry 99 Oxygen Delivery Method Room Air Sepsis Recent Fever Within 48 Hours Sepsis New/Unexplained Change in Mental Status Sepsis Action Taken by Nursing Laboratory Data 10/26/23 15:50 10/26/23 15:50 Lab Results 10/26/23 10/26/23 10/26/23 Range/Units 15:50 15:58 17:25 WBC 6.82 (4.8-10.8) K/ul RBC 4.36 (4.20-5.40) M/uL Hgb 13.0 (12.0-16.0) g/dl POC Hgb 13.6 (12.0-16.0) g/dl Hct 39.8 (37.0-47.0) % POC Hct 40 (37-47) % MCV 91.3 (80.0-100.0) fL MCH 29.8 (25.0-34.0) pg MCHC 32.7 (32.0-36.0) g/dL RDW Std Deviation 43.0 (36.4-46.3) fL RDW Coeff of Tera 12.8 (11.5-14.5) % Plt Count 400 (130-400) K/uL MPV 10.6 (9.4-12.4) fL Immature Gran % (Auto) 0.3 % Neut % (Auto) 58.8 % Lymph % (Auto) 25.7 % [place] % (Auto) 11.3 % Eos % (Auto) 3.2 % Baso % (Auto) 0.7 % Neut # (Auto) 4.01 (1.40-6.50) K/uL Lymph # (Auto) 1.75 (1.20-3.40) K/uL [place] # (Auto) 0.77 H (0.11-0.59) K/uL Eos # (Auto) 0.22 (0.00-0.50) K/uL Baso # (Auto) 0.05 (0.00-0.20) K/uL Immature Gran # (Auto) 0.02 (0.01-0.20) K/uL PT 11.1 (9.0-12.0) Seconds INR 1.0 (0.9-1.1) POC Sodium 137 (135-144) mmol/L Sodium 137 (136-145) mmol/L POC Potassium 3.9 (3.3-5.0) mmol/L Potassium 4.0 (3.5-5.1) mmol/L POC Chloride 100 L (101-112) mmol/L Chloride 102 (98-107) mmol/L Carbon Dioxide 28 (21-32) mmol/L POC Total CO2 25 (24-31) mmol/L Anion Gap 7 (3-11) POC Anion Gap 16.0 (16-25) mmol/L POC BUN 16 (7-18) mg/dl BUN 16 (6-23) mg/dl Creatinine 0.52 L (0.6-1.2) mg/dl POC Creatinine 0.5 L (0.6-1.3) mg/dl Est Cr Clr Drug Dosing Not Reportable Est GFR ( Amer) 113.8 ml/min Est GFR (Non-Af Amer) 98.2 ml/min BUN/Creatinine Ratio 30.8 H (10-20) Glucose 95 (70-99(Fasting)) mg/dl POC Glucose (other) TNP Calcium 9.6 (8.6-10.3) mg/dl POC Ioniz Calcium Erendira 1.21 (1.12-1.32) mmol/l Total Bilirubin 0.5 (0.2-1.0) mg/dl AST 22 (13-39) U/L ALT 14 (7-52) U/L Alkaline Phosphatase 74 (34-104) U/L Troponin I High Sens 3.0 (0-14) pg/ml Total Protein 6.7 (6.0-8.3) gm/dl Albumin 4.4 (3.4-5.0) gm/dl Globulin 2.3 L (2.5-4.0) gm/dl Albumin/Globulin Ratio 1.9 (0.9-2) Urine Color Yellow Urine Appearance Clear (Clear) Urine pH 7.5 (4.5-7.5) Ur Specific [place] 1.037 H (1.000-1.030) Urine Protein Negative (Negative) Urine Glucose (UA) Negative (Negative) Urine Ketones Negative (Negative) Urine Blood Negative (Negative) Urine Nitrite Negative (Negative) Urine Bilirubin Negative (Negative) Urine Urobilinogen Negative (Negative) Ur Leukocyte Esterase Negative (Negative) Administered Medications Discontinued Medications Sodium Chloride (Nss) 1,000 mls @ 125 mls/hr IV .Q8H FREDO Stop: 11/25/23 15:59 Last Admin: 10/26/23 16:32 Dose: 125 mls/hr Documented By: QUANG Ioversol (Optiray 320 125ml) 117 ml IV ONCE ONE Stop: 10/26/23 16:30 Last Admin: 10/26/23 16:29 Dose: 117 ml Documented By: ANITA Imaging Data Radiologist's Impression: Cervical Spine CT 10/26/23 15:[address] DOSE: HISTORY: Trauma TECHNIQUE: Multiaxial CT images of the cervical spine were performed and reformatted in the sagittal and coronal plane without the use of contrast. A dose lowering technique was utilized adhering to the principles of ALARA. COMPARISON: None. FINDINGS: No fractures. Moderate to severe degenerative changes. 2 mm of anterolisthesis of C4 on C5 is likely due to the long-standing degenerative change.. Prevertebral soft tissues and the C1-C2 interval are intact. No pneumothorax. IMPRESSION: No fractures within the cervical spine. ACT 112: Negative or not required by law. Electronically signed by: Avi Monique M.D. 10/26/2023 4:42 PM Chest X-Ray 10/26/23 15:44 XR chest 1V portable CLINICAL HISTORY: fall, weakness TECHNIQUE: Single frontal radiograph of the chest was obtained. Comparison: Comparison is made to chest radiograph 09/28/2023 FINDINGS: Posterior fixation hardware is seen in the thoracal lumbar spine. Calcified aortic knob is seen. The lungs are clear. No evidence of pleural effusion or pneumothorax. IMPRESSION: No acute chest disease. ACT 112: Negative or not required by law. Electronically signed by: Dex Moon M.D. 10/26/2023 4:[address] 10/26/23 15:[address] DOSE: 1586.82 mGy.cm HISTORY: Trauma TECHNIQUE: Multiaxial CT images of the head were performed without the use of intravenous contrast. Automated exposure control was utilized for this study. A dose lowering technique was utilized adhering to the principles of ALARA. Comparison: Head CT 09/28/2023. Findings: The paranasal sinuses and mastoid air cells are clear. The calvarium and skull base are intact. Mild motion artifact results in suboptimal evaluation. No definite mass, hematoma, midline shift, acute infarct. There is a large old left MCA territory infarct again noted with ex vacuo dilatation of the left lateral ventricle. This remains unchanged. Impression: No significant change compared to the prior study. No acute intracranial abnormality. ACT 112: Negative or not required by law. Electronically signed by: Avi Monique M.D. 10/26/2023 4:35 PM Head CTA 10/26/23 15:50 CT ANGIOGRAM OF THE BRAIN CLINICAL HISTORY: Neurologic deficit. Stroke like symptoms. COMPARISON STUDY: Unenhanced CT of the brain performed concurrently on 10/26/2023. CT of the brain dated 09/28/2023. MRI of the brain dated 08/29/2021. TECHNIQUE: Following the IV administration of 117 cc of Optiray 320, CT angiogram of the brain was performed from the skull base to the vertex. Images are reviewed in the axial, sagittal, and coronal planes. 3-D MIPS images are created and assessed. IV contrast was administered without complication. A dose lowering technique was utilized adhering to the principles of ALARA. FINDINGS: Brain parenchyma: There is age related involutional change noting mild subcortical and periventricular microangiopathic change. Left MCA territory encephalomalacia is consistent with a remote insult. There is associated ex vacuo dilatation of the left lateral ventricle. There is no evidence of hemorrhage, mass effect, or f acute territorial ischemia noting angiographic phase technique. There is no evidence of enhancing mass lesion on the angiogram phase images. No extra-axial fluid collection is seen. Leonardo-white matter differentiation is preserved. Ventricles, sulci, and cisterns: Prominent secondary to involutional change. CT angiogram of the brain: There is atherosclerotic calcification of the cavernous carotid and vertebral arteries. 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 This is occluded to the [place] of [place]. The right internal carotid artery at the skull base is widely patent, as are the anterior cerebral arteries and the right middle cerebral artery. The left middle cervical artery is slightly diminutive but patent. The vertebrobasilar system and posterior cerebral arteries are widely patent. The vertebral arteries are codominant. There is a right posterior 2 indicating artery. There is no aneurysm, high-grade stenosis, or focal vessel cutoff identified throughout the intracranial circulation. Dural sinuses: Clear as visualized. Orbits: The bony orbits are intact. The orbital contents are normal as visualized. Sinuses and mastoids: The paranasal sinuses are clear. The mastoid air cells are well pneumatized. Calvarium: Unremarkable. IMPRESSION: 1 There is no evidence of hemorrhage, mass effect, or f acute territorial ischemia noting angiographic phase technique. 2. 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 3. The remaining intracranial vessels are patent. 4. The left MCA is somewhat diminutive, likely related to prior infarct. ACT 112: Negative or not required by law. Electronically signed by: Destin Rodriguez M.D. 10/26/2023 4:44 PM Neck CTA 10/26/23 15:50 NECK CTA HISTORY: neuro deficit, acute stroke suspected TECHNIQUE: Multiaxial CT images of the neck were performed following the intravenous administration of contrast to evaluate the major cervical vessels. 3D/MIP images were also obtained. Sagittal and coronal reformats were reviewed. All measurements were calculated based on NASCET criteria. A dose lowering technique was utilized adhering to the principles of ALARA. COMPARISON STUDY: Carotid Doppler study 05/15/2020. FINDINGS: The aortic arch and proximal great vessels are widely patent. There is no significant stenosis, occlusion, or dissection identified within the bilateral common carotid, right internal carotid, or vertebral arteries. Stable chronic occlusion of the left internal carotid artery. IMPRESSION: 1. Stable chronic occlusion of the left internal carotid artery. 2. No significant stenosis, occlusion, or dissection identified within the right carotid or vertebral arteries. ACT 112: Negative or not required by law. Electronically signed by: Avi Monique M.D. 10/26/2023 4:48 PM Discharge Plan Visit Data Chief Complaint: Trauma Stated Complaint: REF BY HOME NURSE, FALL THURSDAY AND 2X TODAY ED Provider: Vijay Barajas Discharge Problem: Weakness, History of CVA (cerebrovascular accident), Multiple falls Patient Disposition: Admitted As Inpatient Discharge Instructions Interventions: ED Discharge Assessment Last Done: 10/26/23 22:23
[2023-10-26 16:10] LABS: Basophils # (auto) 0.05 K/uL (0.00-0.20); Basophils % (auto) 0.7 %; Eosinophils # (auto) 0.22 K/uL (0.00-0.50); Eosinophils % (auto) 3.2 %; Hematocrit (blood only) 39.8 % (37.0-47.0); Immature Granulocytes # (auto) 0.02 K/uL (0.01-0.20); Immature Granulocytes % (auto) 0.3 %; Lymphocytes # (auto) 1.75 K/uL (1.20-3.40); Lymphocytes % (auto) 25.7 %; Mean Corpuscular Hemoglobin 29.8 pg (25.0-34.0); Mean Corpuscular Hgb Conc 32.7 g/dL (32.0-36.0); Mean Corpuscular Volume 91.3 fL (80.0-100.0); Mean Platelet Volume 10.6 fL (9.4-12.4); Monocytes # (auto) 0.77 K/uL (0.11-0.59); Monocytes % (auto) 11.3 %; Neutrophils # (auto) 4.01 K/uL (1.40-6.50); Neutrophils % (auto) 58.8 %; Platelet Count 400 K/uL (130-400); RDW Coefficient of Variation 12.8 % (11.5-14.5); Red Blood Count 4.36 M/uL (4.20-5.40); White Blood Count 6.82 K/ul (4.8-10.8)
[2023-10-26 16:25] LABS: Alanine Aminotransferase 14 U/L (7-52); Albumin Globulin Ratio 1.9 (0.9-2); Albumin Level 4.4 gm/dl (3.4-5.0); Alkaline Phosphatase 74 U/L (34-104); Anion Gap 7 (3-11); Aspartate Aminotransferase 22 U/L (13-39); BUN Creatinine Ratio 30.8 (10-20); Bilirubin,Total 0.5 mg/dl (0.2-1.0); Blood Urea Nitrogen 16 mg/dl (6-23); Calcium 9.6 mg/dl (8.6-10.3); Carbon Dioxide 28 mmol/L (21-32); Chloride 102 mmol/L (98-107); Est GFR (African American) 113.8 ml/min; Est GFR (Non-African American) 98.2 ml/min; Globulin 2.3 gm/dl (2.5-4.0); Glucose 95 mg/dl (70-99(Fasting)); Sodium 137 mmol/L (136-145); Total Protein 6.7 gm/dl (6.0-8.3)
--- NOTE | 2023-10-26 16:26 | XRay Report ---
XR chest 1V portable CLINICAL HISTORY: fall, weakness TECHNIQUE: Single frontal radiograph of the chest was obtained. Comparison: Comparison is made to chest radiograph 09/28/2023 FINDINGS: Posterior fixation hardware is seen in the thoracal lumbar spine. Calcified aortic knob is seen. The lungs are clear. No evidence of pleural effusion or pneumothorax. IMPRESSION: No acute chest disease. ACT 112: Negative or not required by law. Electronically signed by: Dex Moon M.D. 10/26/2023 4:25 PM
[2023-10-26] MEDS: OPTIRAY 320 125ml IV ONE (16:29)
--- NOTE | 2023-10-26 16:30 | Electrocardiogram Report ---
Test Reason : Blood Pressure : */* mmHG Vent. Rate : 75 BPM Atrial Rate : 75 BPM P-R Int : 168 ms QRS Dur : 62 ms QT Int : 374 ms P-R-T Axes : 69 10 61 degrees QTcB Int : 417 ms Normal sinus rhythm Low voltage QRS Poor R wave progression, consider anterior ME vs. lead placement vs. LVH Abnormal ECG When compared with ECG of 28-Sep-2023 16:22, No significant change Confirmed by Yoseph Crenshaw ([id number]) on 10/26/2023 4:30:06 PM Referred By: Confirmed By: Yoseph Crenshaw
[2023-10-26] MEDS: SODIUM CHLORIDE 0.9% 1,000 ML IV SCH (16:32)
[2023-10-26 16:33] LABS: Prothrombin Time 11.1 Seconds (9.0-12.0)
--- NOTE | 2023-10-26 16:36 | CT Scan Report ---
HEAD CT NONCONTRAST CT DOSE: 1586.82 mGy.cm HISTORY: Trauma TECHNIQUE: Multiaxial CT images of the head were performed without the use of intravenous contrast. A utomated exposure control was utilized for this study. A dose lowering technique was utilized adheri ng to the principles of ALARA. Comparison: Head CT 09/28/2023. Findings: The paranasal sinuses and mastoid air cells are clear. The calvarium and skull base are int act. Mild motion artifact results in suboptimal evaluation. No definite mass, hematoma, midline shift , acute infarct. There is a large old left MCA territory infarct again noted with ex vacuo dilatation of the left lateral ventricle. This remains unchanged. Impression: No significant change compared to the prior study. No acute intracranial abnormality. ACT 112: Negative or not required by law. Electronically signed by: Avi Monique M.D. 10/26/2023 4:35 PM
--- NOTE | 2023-10-26 16:44 | CT Scan Report ---
CERVICAL SPINE CT CT DOSE: HISTORY: Trauma TECHNIQUE: Multiaxial CT images of the cervical spine were performed and reformatted in the sagittal and coronal plane without the use of contrast. A dose lowering technique was utilized adhering to th e principles of ALARA. COMPARISON: None. FINDINGS: No fractures. Moderate to severe degenerative changes. 2 mm of anterolisthesis of C4 on C5 is likely due to the long-standing degenerative change.. Prevertebral soft tissues and the C1-C2 inte rval are intact. No pneumothorax. IMPRESSION: No fractures within the cervical spine. ACT 112: Negative or not required by law. Electronically signed by: Avi Monique M.D. 10/26/2023 4:42 PM
--- NOTE | 2023-10-26 16:46 | CT Scan Report ---
CT ANGIOGRAM OF THE BRAIN CLINICAL HISTORY: Neurologic deficit. Stroke like symptoms. COMPARISON STUDY: Unenhanced CT of the brain performed concurrently on 10/26/2023. CT of the brain da mala 09/28/2023. MRI of the brain dated 08/29/2021. TECHNIQUE: Following the IV administration of 117 cc of Optiray 320, CT angiogram of the brain was pe rformed from the skull base to the vertex. Images are reviewed in the axial, sagittal, and coronal pl anes. 3-D MIPS images are created and assessed. IV contrast was administered without complication. A dose lowering technique was utilized adhering to the principles of ALARA. FINDINGS: Brain parenchyma: There is age related involutional change noting mild subcortical and periventricula r microangiopathic change. Left MCA territory encephalomalacia is consistent with a remote insult. Th ere is associated ex vacuo dilatation of the left lateral ventricle. There is no evidence of hemorrha ge, mass effect, or f acute territorial ischemia noting angiographic phase technique. There is no anders dence of enhancing mass lesion on the angiogram phase images. No extra-axial fluid collection is seen . Leonardo-white matter differentiation is preserved. Ventricles, sulci, and cisterns: Prominent secondary to involutional change. CT angiogram of the brain: There is atherosclerotic calcification of the cavernous carotid and verteb ral arteries. 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 This is occluded to the [place]. The right internal carotid artery at the skull base is widely p atent, as are the anterior cerebral arteries and the right middle cerebral artery. The left middle ce rvical artery is slightly diminutive but patent. The vertebrobasilar system and posterior cerebral ar teries are widely patent. The vertebral arteries are codominant. There is a right posterior 2 indicat ing artery. There is no aneurysm, high-grade stenosis, or focal vessel cutoff identified throughout t he intracranial circulation. Dural sinuses: Clear as visualized. Orbits: The bony orbits are intact. The orbital contents are normal as visualized. Sinuses and mastoids: The paranasal sinuses are clear. The mastoid air cells are well pneumatized. Calvarium: Unremarkable. IMPRESSION: 1 There is no evidence of hemorrhage, mass effect, or f acute territorial ischemia noting angiographi c phase technique. 2. 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 3. The remaining intracranial vessels are patent. 4. The left MCA is somewhat diminutive, likely related to prior infarct. ACT 112: Negative or not required by law. Electronically signed by: Destin Rodriguez M.D. 10/26/2023 4:44 PM
--- NOTE | 2023-10-26 16:50 | CT Scan Report ---
NECK CTA HISTORY: neuro deficit, acute stroke suspected TECHNIQUE: Multiaxial CT images of the neck were performed following the intravenous administration o f contrast to evaluate the major cervical vessels. 3D/MIP images were also obtained. Sagittal and cor onal reformats were reviewed. All measurements were calculated based on NASCET criteria. A dose low ering technique was utilized adhering to the principles of ALARA. COMPARISON STUDY: Carotid Doppler study 05/15/2020. FINDINGS: The aortic arch and proximal great vessels are widely patent. There is no significant sten osis, occlusion, or dissection identified within the bilateral common carotid, right internal carotid , or vertebral arteries. Stable chronic occlusion of the left internal carotid artery. IMPRESSION: 1. Stable chronic occlusion of the left internal carotid artery. 2. No significant stenosis, occlusion, or dissection identified within the right carotid or vertebral arteries. ACT 112: Negative or not required by law. Electronically signed by: Avi Monique M.D. 10/26/2023 4:48 PM
[2023-10-26 17:40] LABS: Appearance Urine Clear (Clear); Bilirubin Urine Negative (Negative); Blood Urine Negative (Negative); Color Urine Yellow; Glucose Urine UA Negative (Negative); Ketones Urine Negative (Negative); Leukocyte Esterase Urine Negative (Negative); Nitrite Urine Negative (Negative); Protein Urine Negative (Negative); Specific Gravity Urine 1.037 (1.000-1.030); Urobilinogen Urine Negative (Negative); pH Urine 7.5 (4.5-7.5)
[2023-10-26 17:42] LABS: iSTAT Blood Urea Nitrogen 16 mg/dl (7-18); iSTAT Carbon Dioxide 25 mmol/L (24-31); iSTAT Chloride 100 mmol/L (101-112); iSTAT Creatinine 0.5 mg/dl (0.6-1.3); iSTAT Hematocrit 40 % (37-47); iSTAT Hemoglobin 13.6 g/dl (12.0-16.0); iSTAT Ionized Calcium 1.21 mmol/l (1.12-1.32); iSTAT Potassium 3.9 mmol/L (3.3-5.0); iSTAT Sodium 137 mmol/L (135-144)
--- NOTE | 2023-10-26 19:40 | History & Physical Report ---
Date of Service October 26, 2023 Assessment & Plan (1) Multiple falls: (2) Weakness: (3) Hemiplegia: (4) B12 deficiency: (5) Aphasia, post-stroke: (6) Hemiparesis affecting right side as late effect of cerebrovascular accident: (7) History of cerebrovascular accident from left carotid artery occlusion involving left middle cerebral artery territory: (8) Presence of intrathecal pump: Plan Multiple falls/right hemiplegia secondary to left MCA distribution CVA/generalized weakness- Admit for observation to telemetry post trauma alert No new deficits Continue baclofen intrathecal pump and as needed oral baclofen CT scan of head and cervical spine without new findings CTA head and neck showing chronic thrombosis left ICA Will need to determine if MRI is possible with intrathecal pump, otherwise repeat CT in a.m. Continue clopidogrel Order EEG Neurology consulted by ED Patient is mildly dehydrated, placed on LR at 80 mL/h x 1 L Seizure precautions Presently undergoing home PT Consult PT/OT Executive function deficit- Continue clopidogrel, donepezil, memantine, duloxetine and pregabalin Hyperlipidemia- Continue atorvastatin History of Present Illness Chief Complaint: The patient presents to the emergency department as a trauma alert, after sustaining a fall with injury to her right shoulder, with history of hemiplegia associated with prior stroke. Primary Care Provider: Aaron Bowers MD The patient is a 68-year-old female with a past medical history including all falls, generalized weakness, right hemiplegia secondary to CVA, aphasia, B12 deficiency, presence of intrathecal baclofen pump, lumbar postlaminectomy syndrome, history of left MCA territory CVA, and ambulatory dysfunction. She presents to the emergency department after multiple falls over the past few days, and was noted to have a contusion to her right shoulder and reported to family and friends that she had worsening weakness than usual. there was concern from the ED regarding possibility of a seizure. Allergies Allergy/AdvReac Type Severity Reaction Status Date / Time cephalexin Allergy Severe Anaphylaxis Verified 10/22/23 08:55 Penicillins AdvReac Mild nausea Verified 10/22/23 08:55 Home Medications Medication Instructions Recorded Confirmed Type pyridoxine (vitamin B6) 50 mg 50 mg PO WK 08/01/20 10/26/23 History capsule (Vitamin B-6) baclofen 40,000 mcg/20 mL (2,000 0 mcg continuous intrathecal 08/04/21 10/26/23 History mcg/mL) intrathecal solution infusion UD baclofen 10 mg tablet 10 mg PO DAILY PRN spasms #90 tabs 12/01/22 10/26/23 Rx celecoxib 200 mg capsule 200 mg PO QAM #90 caps 03/20/23 10/26/23 Rx clopidogrel 75 mg tablet 75 mg PO HS #90 tabs 03/20/23 10/26/23 Rx donepezil 10 mg tablet 10 mg PO DAILY #90 tabs 03/20/23 10/26/23 Rx memantine 10 mg tablet 10 mg PO BID 90 days #180 tabs 03/20/23 10/26/23 Rx potassium chloride 10 mEq 10 meq PO DAILY 06/15/23 10/26/23 History capsule,extended release valacyclovir 500 mg tablet 500 mg PO BID PRN Other 06/15/23 10/26/23 History duloxetine 30 mg capsule,delayed 30 mg PO DAILY #30 caps 09/22/23 10/26/23 Rx release (Cymbalta) atorvastatin 10 mg tablet 10 mg PO UD 09/28/23 10/26/23 History pregabalin 100 mg capsule 100 mg PO TID #30 caps 10/06/23 10/26/23 Rx cyproheptadine 4 mg tablet 4 mg PO HS #30 tabs 10/22/23 10/26/23 Rx Past Med/Surg History Problem List (Updated 10/26/23 @ 16:04 by Vijay Barajas MD) Multiple falls (Acute) Weakness (Acute) Malnutrition compromising bodily function Seizure Superficial thrombophlebitis of arm Hyponatremia Lumbar pain Hemiplegia Right side > wears AFO brace on RLE, no control of right arm Weight loss Aphasia due to disease due to b12 deficiency B12 deficiency expressive aphasia Hypokalemia Fall (on) (from) other stairs and steps, initial encounter Osteoarthritis Encounter for routine gynecological examination Aphasia, post-stroke Executive function deficit Hemiparesis affecting right side as late effect of cerebrovascular accident Presence of intrathecal pump Sacroiliac inflammation Carpal tunnel syndrome (Chronic) Neck pain (Acute) Lumbar postlaminectomy syndrome (Chronic) History of lumbar fusion (Chronic) X 2 Change in bowel habits History of cerebrovascular accident from left carotid artery occlusion involving left middle cerebral artery territory Aphasia as late effect of cerebrovascular accident History of CVA (cerebrovascular accident) (Chronic) 1998 large left MCA territory in setting of occluded left carotid potentially related to oral contraception at that time > chronic spastic right hemiparesis, flaccid upper limb and mild to moderate expressive aphasia > on plavix > follows with [facility] neuro Medical History External constriction of left ring finger, initial encounter Sciatica Osteoporosis with fracture Hyperplastic colon polyp Ring or other jewelry causing external constriction, initial encounter Hyponatremia Fall Closed femur fracture Memory loss Left carotid artery occlusion Vasovagal syncope if not laying flat during blood draws Encounter for pre-operative examination Memory problem History of depression 1998 per pt Hypertension controlled, stable per pt Chronic constipation with overflow 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 (CVA) 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 (CVA) CVA (cerebral vascular accident) Laceration of eyebrow, right Head trauma Osteoporosis Stroke Surgical History Family history of reaction to anesthesia Mother: slow to wake History of gynecologic surgery Labial "removal" History of back surgery Lumbar fusion x2 History of colonoscopy History of tooth extraction History of tonsillectomy Family History Father Cancer Family history of esophageal cancer Other No pertinent family history Denies family history of Ovarian cancer Prostate cancer Diabetes Myocardial infarction Breast cancer Colorectal cancer Hypertension Social History Smoking Status: Former smoker Age Started Using Tobacco: 12; Age Quit Using Tobacco: 22; Second Hand Exposure: No; Do You Dip or Chew Tobacco: No; Hx Alcohol Use: No Hx Substance Use: No Preferred Language: Syrian Communication Ability: Impaired Communication Ability Comment: Expressive aphasia from previous CVA Visual Impairment: No Limitations Automobile 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 Beliefs That Will Affect Care: None marital status: Single Current Living Situation: Alone current occupational status: retired How many Children do You have: 0 Feels Safe at Home: Yes Childhood Exposure to Second-Hand Smoke: Yes caffeine: Yes (coffee) Dental Care, Regularly: Yes Physical Activity Frequency: Daily Seatbelt Use: always Sunscreen Use: Yes Assistive Devices: Cane and Walker Review of Systems Review of Systems: The patient denies chest pain, palpitations, shortness of breath, dyspnea on exertion, cough, lower extremity swelling, sore throat, fevers, chills, sweats, nausea, vomiting, diarrhea , constipation, abdominal pain, pelvic pain, blood in urine or stool, dysuria, urinary frequency or urgency, lightheadedness, dizziness, headache, loss of consciousness, rash, abnormal bruising or bleeding, New focal weakness, numbness or tingling in left arms or legs, or worsening focal weakness in right arm or leg, generalized arthralgias or myalgias, change in back or neck pain, or night sweats. The review of systems is otherwise negative other than for that already noted above, and at least 10 systems have been reviewed. Physical Exam Physical Exam: The patient is awake, alert and oriented 3, normocephalic and atraumatic, lying in bed and in no acute distress. HEENT--PERRL, EOMI, mucous membranes and oropharynx mildly dry. Neck--supple. No JVD. No bruits. Thyroid normal, trachea midline, no adenopathy. Heart--normal S1 and S2. No murmurs, rubs or gallops. Lungs--clear bilaterally, no respiratory distress, no accessory muscle use. Abdomen--normal bowel sounds and soft. Nontender. Nondistended, no hernias or masses, no organomegaly. Extremities--No edema. There are good distal pulses b/l. Dermatologic--normal skin turgor, normal color, no abnormal lymph nodes, no rash. Neurologic--cranial nerves II through XII grossly intact. Right hemiplegia Rheumatologic--normal range of motion, except right hemiplegia Psychiatric--normal affect. Results & Data Results & Data Vital Signs (Past 12 Hours) Vital Signs Temp Pulse Pulse Resp BP BP Pulse Ox 10/26/23 18:19 36.5 C 71 16 154/87 H 99 10/26/23 16:40 36.5 C 81 18 151/86 H 96 10/26/23 16:39 97 10/26/23 16:34 36.5 C 69 17 151/86 H 96 10/26/23 16:12 79 10/26/23 16:03 36.8 C 68 15 147/95 H 98 10/26/23 15:35 36.9 C 75 18 127/76 97 O2 Del Method 10/26/23 18:19 Room Air 10/26/23 16:40 Room Air 10/26/23 16:39 Room Air 10/26/23 16:34 Room Air 10/26/23 16:12 10/26/23 16:03 Room Air 10/26/23 15:35 Room Air Laboratory Results Laboratory Results WBC 6.82 K/ul (4.8-10.8) 10/26/23 15:50 RBC 4.36 M/uL (4.20-5.40) 10/26/23 15:50 Hgb 13.0 g/dl (12.0-16.0) 10/26/23 15:50 POC Hgb 13.6 g/dl (12.0-16.0) 10/26/23 15:58 Hct 39.8 % (37.0-47.0) 10/26/23 15:50 POC Hct 40 % (37-47) 10/26/23 15:58 MCV 91.3 fL (80.0-100.0) 10/26/23 15:50 MCH 29.8 pg (25.0-34.0) 10/26/23 15:50 MCHC 32.7 g/dL (32.0-36.0) 10/26/23 15:50 RDW Std Deviation 43.0 fL (36.4-46.3) 10/26/23 15:50 RDW Coeff of Tera 12.8 % (11.5-14.5) 10/26/23 15:50 Plt Count 400 K/uL (130-400) 10/26/23 15:50 MPV 10.6 fL (9.4-12.4) 10/26/23 15:50 Immature Gran % (Auto) 0.3 % 10/26/23 15:50 Neut % (Auto) 58.8 % 10/26/23 15:50 Lymph % (Auto) 25.7 % 10/26/23 15:50 Garza % (Auto) 11.3 % 10/26/23 15:50 Eos % (Auto) 3.2 % 10/26/23 15:50 Baso % (Auto) 0.7 % 10/26/23 15:50 Neut # (Auto) 4.01 K/uL (1.40-6.50) 10/26/23 15:50 Lymph # (Auto) 1.75 K/uL (1.20-3.40) 10/26/23 15:50 Garza # (Auto) 0.77 K/uL (0.11-0.59) H 10/26/23 15:50 Eos # (Auto) 0.22 K/uL (0.00-0.50) 10/26/23 15:50 Baso # (Auto) 0.05 K/uL (0.00-0.20) 10/26/23 15:50 Immature Gran # (Auto) 0.02 K/uL (0.01-0.20) 10/26/23 15:50 PT 11.1 Seconds (9.0-12.0) 10/26/23 15:50 INR 1.0 (0.9-1.1) 10/26/23 15:50 POC Sodium 137 mmol/L (135-144) 10/26/23 15:58 Sodium 137 mmol/L (136-145) 10/26/23 15:50 POC Potassium 3.9 mmol/L (3.3-5.0) 10/26/23 15:58 Potassium 4.0 mmol/L (3.5-5.1) 10/26/23 15:50 POC Chloride 100 mmol/L (101-112) L 10/26/23 15:58 Chloride 102 mmol/L (98-107) 10/26/23 15:50 Carbon Dioxide 28 mmol/L (21-32) 10/26/23 15:50 POC Total CO2 25 mmol/L (24-31) 10/26/23 15:58 Anion Gap 7 (3-11) 10/26/23 15:50 POC Anion Gap 16.0 mmol/L (16-25) 10/26/23 15:58 POC BUN 16 mg/dl (7-18) 10/26/23 15:58 BUN 16 mg/dl (6-23) 10/26/23 15:50 Creatinine 0.52 mg/dl (0.6-1.2) L 10/26/23 15:50 POC Creatinine 0.5 mg/dl (0.6-1.3) L 10/26/23 15:58 Est Cr Clr Drug Dosing Not Reportable 10/26/23 15:50 Est GFR ( Amer) 113.8 ml/min 10/26/23 15:50 Est GFR (Non-Af Amer) 98.2 ml/min 10/26/23 15:50 BUN/Creatinine Ratio 30.8 (10-20) H 10/26/23 15:50 Glucose 95 mg/dl (70-99(Fasting)) 10/26/23 15:50 POC Glucose (other) TNP 10/26/23 15:58 Calcium 9.6 mg/dl (8.6-10.3) 10/26/23 15:50 POC Ioniz Calcium [place] 1.21 mmol/l (1.12-1.32) 10/26/23 15:58 Total Bilirubin 0.5 mg/dl (0.2-1.0) 10/26/23 15:50 AST 22 U/L (13-39) 10/26/23 15:50 ALT 14 U/L (7-52) 10/26/23 15:50 Alkaline Phosphatase 74 U/L (34-104) 10/26/23 15:50 Troponin I High Sens 3.0 pg/ml (0-14) 10/26/23 15:50 Total Protein 6.7 gm/dl (6.0-8.3) 10/26/23 15:50 Albumin 4.4 gm/dl (3.4-5.0) 10/26/23 15:50 Globulin 2.3 gm/dl (2.5-4.0) L 10/26/23 15:50 Albumin/Globulin Ratio 1.9 (0.9-2) 10/26/23 15:50 Urine Color Yellow 10/26/23 17:25 Urine Appearance Clear (Clear) 10/26/23 17:25 Urine pH 7.5 (4.5-7.5) 10/26/23 17:25 Ur Specific [place] 1.037 (1.000-1.030) H 10/26/23 17:25 Urine Protein Negative (Negative) 10/26/23 17:25 Urine Glucose (UA) Negative (Negative) 10/26/23 17: Urine Ketones Negative (Negative) 10/26/23 17:25 Urine Blood Negative (Negative) 10/26/23 17:25 Urine Nitrite Negative (Negative) 10/26/23 17:25 Urine Bilirubin Negative (Negative) 10/26/23 17: Urine Urobilinogen Negative (Negative) 10/26/23 17:25 Ur Leukocyte Esterase Negative (Negative) 10/26/23 17:[address] 10/26/23 15:[address] DOSE: HISTORY: Trauma TECHNIQUE: Multiaxial CT images of the cervical spine were performed and reformatted in the sagittal and coronal plane without the use of contrast. A dose lowering technique was utilized adhering to the principles of ALARA. COMPARISON: None. FINDINGS: No fractures. Moderate to severe degenerative changes. 2 mm of anterolisthesis of C4 on C5 is likely due to the long-standing degenerative change.. Prevertebral soft tissues and the C1-C2 interval are intact. No pneumothorax. IMPRESSION: No fractures within the cervical spine. ACT 112: Negative or not required by law. Electronically signed by: Avi Monique M.D. 10/26/2023 4:42 PM Chest X-Ray 10/26/23 15:44 XR chest 1V portable CLINICAL HISTORY: fall, weakness TECHNIQUE: Single frontal radiograph of the chest was obtained. Comparison: Comparison is made to chest radiograph 09/28/2023 FINDINGS: Posterior fixation hardware is seen in the thoracal lumbar spine. Calcified aortic knob is seen. The lungs are clear. No evidence of pleural effusion or pneumothorax. IMPRESSION: No acute chest disease. ACT 112: Negative or not required by law. Electronically signed by: Dex Moon M.D. 10/26/2023 4:[address] 10/26/23 15:[address] DOSE: 1586.82 mGy.cm HISTORY: Trauma TECHNIQUE: Multiaxial CT images of the head were performed without the use of intravenous contrast. Automated exposure control was utilized for this study. A dose lowering technique was utilized adhering to the principles of ALARA. Comparison: Head CT 09/28/2023. Findings: The paranasal sinuses and mastoid air cells are clear. The calvarium and skull base are intact. Mild motion artifact results in suboptimal evaluation. No definite mass, hematoma, midline shift, acute infarct. There is a large old left MCA territory infarct again noted with ex vacuo dilatation of the left lateral ventricle. This remains unchanged. Impression: No significant change compared to the prior study. No acute intracranial abnormality. ACT 112: Negative or not required by law. Electronically signed by: Avi Monique M.D. 10/26/2023 4:35 PM Head CTA 10/26/23 15:50 CT ANGIOGRAM OF THE BRAIN CLINICAL HISTORY: Neurologic deficit. Stroke like symptoms. COMPARISON STUDY: Unenhanced CT of the brain performed concurrently on 10/26/2023. CT of the brain dated 09/28/2023. MRI of the brain dated 08/29/2021. TECHNIQUE: Following the IV administration of 117 cc of Optiray 320, CT angiogram of the brain was performed from the skull base to the vertex. Images are reviewed in the axial, sagittal, and coronal planes. 3-D MIPS images are created and assessed. IV contrast was administered without complication. A dose lowering technique was utilized adhering to the principles of ALARA. FINDINGS: Brain parenchyma: There is age related involutional change noting mild subcortical and periventricular microangiopathic change. Left MCA territory encephalomalacia is consistent with a remote insult. There is associated ex vacuo dilatation of the left lateral ventricle. There is no evidence of hemorrhage, mass effect, or f acute territorial ischemia noting angiographic phase technique. There is no evidence of enhancing mass lesion on the angiogram phase images. No extra-axial fluid collection is seen. Leonardo-white matter differentiation is preserved. Ventricles, sulci, and cisterns: Prominent secondary to involutional change. CT angiogram of the brain: There is atherosclerotic calcification of the cavernous carotid and vertebral arteries. 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 This is occluded to the [place]. The right internal carotid artery at the skull base is widely patent, as are the anterior cerebral arteries and the right middle cerebral artery. The left middle cervical artery is slightly diminutive but patent. The vertebrobasilar system and posterior cerebral arteries are widely patent. The vertebral arteries are codominant. There is a right posterior 2 indicating artery. There is no aneurysm, high-grade stenosis, or focal vessel cutoff identified throughout the intracranial circulation. Dural sinuses: Clear as visualized. Orbits: The bony orbits are intact. The orbital contents are normal as visualized. Sinuses and mastoids: The paranasal sinuses are clear. The mastoid air cells are well pneumatized. Calvarium: Unremarkable. IMPRESSION: 1 There is no evidence of hemorrhage, mass effect, or f acute territorial ischemia noting angiographic phase technique. 2. 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 3. The remaining intracranial vessels are patent. 4. The left MCA is somewhat diminutive, likely related to prior infarct. ACT 112: Negative or not required by law. Electronically signed by: Destin Rodriguez M.D. 10/26/2023 4:44 PM Neck CTA 10/26/23 15:50 NECK CTA HISTORY: neuro deficit, acute stroke suspected TECHNIQUE: Multiaxial CT images of the neck were performed following the intravenous administration of contrast to evaluate the major cervical vessels. 3D/MIP images were also obtained. Sagittal and coronal reformats were reviewed. All measurements were calculated based on NASCET criteria. A dose lowering technique was utilized adhering to the principles of ALARA. COMPARISON STUDY: Carotid Doppler study 05/15/2020. FINDINGS: The aortic arch and proximal great vessels are widely patent. There is no significant stenosis, occlusion, or dissection identified within the bilateral common carotid, right internal carotid, or vertebral arteries. Stable chronic occlusion of the left internal carotid artery. IMPRESSION: 1. Stable chronic occlusion of the left internal carotid artery. 2. No significant stenosis, occlusion, or dissection identified within the right carotid or vertebral arteries. ACT 112: Negative or not required by law. Electronically signed by: Avi Monique M.D. 10/26/2023 4:48 PM Code Status & VTE Plan Code Status Full code VTE Prophylaxis Plan VTE Prophylaxis will be ordered: Yes PG Care Time/CCT Total # of Minutes Spent Total Time Spent with Patient: Total time spent is greater than 50% in coordination of care (as documented) at patient's floor/unit and/or counseling patient: Coding Level of Care Code 30517 INT INP/OBS CARE 3/75MIN Diagnoses Multiple falls R29.6 Weakness R53.1 Hemiplegia G81.90 Hemiplegia etiology: late effect of cerebrovascular disease Hemiplegia laterality: right dominant side Hemiplegia type: spastic B12 deficiency E53.8 Aphasia, post-stroke I69.320 Hemiparesis affecting right side as late effect of cerebrovascular accident I69.351 History of cerebrovascular accident from left carotid artery occlusion involving left middle cerebral artery territory Z86.73 Presence of intrathecal pump Z96.89 (3) Hemiplegia Hemiplegia etiology: late effect of cerebrovascular disease Hemiplegia laterality: right dominant side Hemiplegia type: spastic
[2023-10-26] MEDS ORDERED: BACLOFEN 10 MG TAB PO PRN (22:22)
[2023-10-26] MEDS ORDERED: ACETAMINOPHEN 325 MG TAB PO PRN (22:22)
[2023-10-26] MEDS: LACTATED RINGER'S 1,000 ML IV SCH (22:45)
[2023-10-26] MEDS: MEMANTINE HCL 10 MG TAB PO SCH (22:45)
[2023-10-26] MEDS ORDERED: BACLOFEN PAIN PUMP IT SCH (22:45)
[2023-10-26] MEDS: CYPROHEPTADINE HCL 4 MG TAB PO SCH (22:46)
[2023-10-26] MEDS: CLOPIDOGREL BISULFATE 75 MG TAB PO SCH (22:46)
[2023-10-26] MEDS: PREGABALIN 100 MG CAP PO SCH (22:49)
[2023-10-27 06:30] LABS: Basophils # (auto) 0.06 K/uL (0.00-0.20); Basophils % (auto) 1.3 %; Eosinophils # (auto) 0.38 K/uL (0.00-0.50); Eosinophils % (auto) 7.9 %; Hematocrit (blood only) 35.7 % (37.0-47.0); Hemoglobin 11.9 g/dl (12.0-16.0); Immature Granulocytes # (auto) 0.01 K/uL (0.01-0.20); Immature Granulocytes % (auto) 0.2 %; Lymphocytes # (auto) 1.77 K/uL (1.20-3.40); Lymphocytes % (auto) 36.9 %; Mean Corpuscular Hemoglobin 30.1 pg (25.0-34.0); Mean Corpuscular Hgb Conc 33.3 g/dL (32.0-36.0); Mean Corpuscular Volume 90.4 fL (80.0-100.0); Mean Platelet Volume 10.5 fL (9.4-12.4); Monocytes # (auto) 0.71 K/uL (0.11-0.59); Monocytes % (auto) 14.8 %; Neutrophils # (auto) 1.87 K/uL (1.40-6.50); Neutrophils % (auto) 38.9 %; Platelet Count 323 K/uL (130-400); RDW Coefficient of Variation 12.8 % (11.5-14.5); RDW Standard Deviation 42.5 fL (36.4-46.3); Red Blood Count 3.95 M/uL (4.20-5.40)
[2023-10-27 06:52] LABS: Albumin Level 3.6 gm/dl (3.4-5.0); Calcium 8.3 mg/dl (8.6-10.3); Magnesium 1.9 mg/dl (1.7-2.4); Potassium 3.8 mmol/L (3.5-5.1)
[2023-10-27 06:57] LABS: BUN Creatinine Ratio 14.3 (10-20); Creatinine Clr Calc Pharmacy 107.3 ml/min; Est GFR (African American) 122.1 ml/min; Est GFR (Non-African American) 105.3 ml/min; Phosphorus 3.9 mg/dl (2.5-4.9)
[2023-10-27] MEDS: CeleBREX 200 MG CAP PO SCH (09:15)
[2023-10-27] MEDS: DULoxetine HCL 30 MG CAP PO SCH (09:15)
[2023-10-27] MEDS: DONEPEZIL HCL 10 MG TAB PO SCH (09:15)
[2023-10-27] MEDS: POTASSIUM CHLORIDE 10 MEQ TABCR PO SCH (09:16)
[2023-10-27] MEDS: PYRIDOXINE HCL 50 MG TAB PO SCH (09:18)
[2023-10-27] MEDS: FLUTICASONE PROPIONATE NA SPR 16 GM BTL NAE SCH (10:52)
[2023-10-27] MEDS: HYDROCORTISONE 2.5% OINT 20 GM TUBE EXT PRN (10:56)
--- NOTE | 2023-10-27 11:10 | Neurology Consultation ---
Date of Consultation October 27, 2023 Assessment & Plan (1) History of cerebrovascular accident from left carotid artery occlusion involving left middle cerebral artery territory: (2) Aphasia as late effect of cerebrovascular accident: (3) Hemiparesis affecting right side as late effect of cerebrovascular accident: (4) Multiple falls: (5) Vascular dementia: Plan Patient has a history of large left middle cerebral artery territory stroke back in 1998 secondary to a left carotid artery occlusion which has left her with left hemiplegia and severe spasticity requiring a intrathecal baclofen pump. She also has chronic pain from her lumbar spine post fusion from T11-S1 on multiple chronic pain medicines. Patient has been falling, in her opinion from losing her balance. There is concerned that she has had seizures resulting in falls. This is difficult because there is no witnessed seizure or history of seizures although she is at risk for left brain seizures due to her large stroke. I would expect seizures to occur randomly no matter what she is doing as opposed to just making her fall. Nevertheless, I cannot entirely exclude seizures. Although she is considered a little weaker in general, she does not have any new focal neurologic findings to suggest a further stroke. nevertheless, I cannot exclude a small new stroke. The patient has a vascular dementia, relatively mild at this point but on medication. Because of her previous stroke, with dementia, she is considered an ongoing fall risk. Recommendations: 1. MRI of the brain without contrast to assess for new stroke 2. EEG routine 3. Consider empiric anticonvulsant therapy with something that would not alter her mental status. I would suggest Depakote ER 500 mg daily would be my first choice (and avoid levetiracetam). 4. Increase activity and consider physical and Occupational Therapy consults. 5. This patient may not be able to live on her own because of her fall risk. Overall, I spent a total of 75 minutes with this case including review of records, direct evaluation patient at bedside, report generation, and discussing the case with the patient at bedside and Dr. Estrada, including differential diagnosis and treatment options. History of Present Illness Reason for Consultation: Patient is a 68-year-old, who I was asked to see at the request of Dr. Estrada, for neurologic consultation regarding following Apparently, this patient had a very large left middle cerebral artery stroke secondary to left internal carotid artery occlusion, back in 1998, associated with oral contraceptive pill usage. She was left with a dense right hemiplegia and some expressive aphasia. There may have been a little dysarthria as well. Patient lives alone and has been stable. She is followed by Dr. Conner. Dr. Conner just saw her in September 22, 2023 for a follow-up visit. There is mild vascular dementia and likely present and she is on Aricept and Namenda. She is remains on clopidogrel for her previous stroke. When I talked to the patient today she believes that her memory is "fine". The patient has had chronic low back pain and is post spinal fusion in July 2016 L2-L5. In 2018 she had hardware removal and fusion from T11-S1. Most recent MRI was in August 2021 showing stability. The patient has severe spasticity from the stroke and then, years ago, had a baclofen pump put in. Apparently was replaced in July 2021. This has helped pain and spasticity. Patient was admitted September 27 for a 1 week stay regarding a fall with nasal fracture (did not pass out, just lost balance and tripping off the floor), dehydration, hyponatremia and rhabdomyolysis. She was discharged October 05. The patient saw primary care Dr. Aaron Bowers 10/22/2023. He was concerned that this fall was secondary to a seizure as the patient had little memory of the event. The patient has fallen several times, in the last few days and has taken to the emergency room October 25. Her PCP still is concerned regarding seizure. In the emergency room she has had no seizure activity and has been awake and alert. Her neuroexam is largely unchanged. Today blood pressure is 138/77 with a pulse of 60s. She is afebrile at 36.5 and O2 saturation is 97%. CT scan of the head was unremarkable. CT angiography of the head and neck showed the old left ICA occlusion and diminutive left middle cerebral artery, as before. She is currently on clopidogrel 75 mg a day. For spasticity and pain she is on the baclofen pump, 10 mg about 1 tablet as needed, duloxetine 30 mg in the evening, and pregabalin 100 mg 3 times a day. For her memory she is on memantine 10 mg twice a day and donepezil 10 mg daily. Currently she feels "fine" with good memory and feels that her strength sensation and coordination are the same as baseline. Attending Physician: Isac Estrada Allergies Allergy/AdvReac Type Severity Reaction Status Date / Time cephalexin Allergy Severe Anaphylaxis Verified 10/22/23 08:55 Penicillins AdvReac Mild nausea Verified 10/22/23 08:55 Home Medications Medication Instructions Recorded Confirmed Type pyridoxine (vitamin B6) 50 mg 50 mg PO WK 08/01/20 10/26/23 History capsule (Vitamin B-6) baclofen 40,000 mcg/20 mL (2,000 0 mcg continuous intrathecal 08/04/21 10/26/23 History mcg/mL) intrathecal solution infusion UD baclofen 10 mg tablet 10 mg PO DAILY PRN spasms #90 tabs 12/01/22 10/26/23 Rx celecoxib 200 mg capsule 200 mg PO QAM #90 caps 03/20/23 10/26/23 Rx clopidogrel 75 mg tablet 75 mg PO HS #90 tabs 03/20/23 10/26/23 Rx donepezil 10 mg tablet 10 mg PO DAILY #90 tabs 03/20/23 10/26/23 Rx memantine 10 mg tablet 10 mg PO BID 90 days #180 tabs 03/20/23 10/26/23 Rx potassium chloride 10 mEq 10 meq PO DAILY 06/15/23 10/26/23 History capsule,extended release valacyclovir 500 mg tablet 500 mg PO BID PRN Other 06/15/23 10/26/23 History duloxetine 30 mg capsule,delayed 30 mg PO DAILY #30 caps 09/22/23 10/26/23 Rx release (Cymbalta) atorvastatin 10 mg tablet 10 mg PO UD 09/28/23 10/26/23 History pregabalin 100 mg capsule 100 mg PO TID #30 caps 10/06/23 10/26/23 Rx cyproheptadine 4 mg tablet 4 mg PO HS #30 tabs 10/22/23 10/26/23 Rx Patient History Medical History Fall External constriction of left ring finger, initial encounter Sciatica Osteoporosis with fracture Hyperplastic colon polyp Ring or other jewelry causing external constriction, initial encounter Fall Closed femur fracture Memory loss Left carotid artery occlusion Vasovagal syncope if not laying flat during blood draws Encounter for pre-operative examination Memory problem History of depression 1998 per pt Hypertension controlled, stable per pt Chronic constipation with overflow 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 (CVA) 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 (CVA) CVA (cerebral vascular accident) Laceration of eyebrow, right Head trauma Osteoporosis Stroke Surgical History Family history of reaction to anesthesia Mother: slow to wake History of gynecologic surgery Labial "removal" History of back surgery Lumbar fusion x2 History of colonoscopy History of tooth extraction History of tonsillectomy Family History Father Cancer Family history of esophageal cancer Other No pertinent family history Denies family history of Ovarian cancer Prostate cancer Diabetes Myocardial infarction Breast cancer Colorectal cancer Hypertension Social History Smoking Status: Never smoker Age Started Using Tobacco: 12; Age Quit Using Tobacco: 22; Second Hand Exposure: No; Do You Dip or Chew Tobacco: No; Hx Alcohol Use: No Hx Substance Use: No Preferred Language: Arabic Communication Ability: Effective Communication Ability Comment: Expressive aphasia from previous CVA Visual Impairment: No 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 Beliefs That Will Affect Care: None marital status: Single Current Living Situation: Alone Current Living Situation Comment: Lives home alone current occupational status: retired How many Children do You have: 0 Feels Safe at Home: Yes Childhood Exposure to Second-Hand Smoke: Yes caffeine: Yes (coffee) Dental Care, Regularly: Yes Physical Activity Frequency: Daily Seatbelt Use: always Sunscreen Use: Yes Assistive Devices: Cane Review of Systems Constitutional: + fatigue and + weakness; no fever Eyes: no diplopia, no eye pain and no worsening vision Ear, Nose, Mouth, Throat: no ear pain, no tinnitus, no hearing loss, no dizziness, no snoring, no hoarseness and no dysphagia Respiratory: no cough and no dyspnea Cardiovascular: no chest pain, no palpitations and no lightheadedness Gastrointestinal: no abdominal pain, no nausea and no vomiting Genitourinary: no dysuria, no urinary frequency and no urinary incontinence Musculoskeletal: + back pain; no neck pain, no radicular pain, no joint pain and no myalgia Integumentary: no rash and no lesions Neurologic: + gait abnormality, + localized weakness and + abnormal speech; no generalized weakness, no tingling, no numbness, no tremor(s), no abnormal movements, no headache(s), no confusion and no memory loss Psychiatric: no depression, no irritability, no anxiety, no difficulty concentrating, no confusion and no hallucinations Endocrine: no fatigue and no flushing Hematologic / Lymphatic: no easy bleeding and no easy bruising Allergy / Immunological: no urticaria and no problem reported Exam (Neuro) Physical Exam: The patient is right-handed. The patient is awake, alert, and attentive. Speech is remarkable for slight dysarthria but mostly a expressive aphasia.. Mood and affect are normal and appropriate. Thought processes are reasonable to conversation but she does not remember facts. Pupils are 3 mm bilaterally and reactive to light. Extraocular eye muscles are intact without nystagmus. Visual acuity and visual gandara seem normal grossly to confrontation. There are no deficits to sensation in the face in all 3 distributions of the fifth cranial nerve bilaterally. Corneal reflexes are positive bilaterally. Facial strength and symmetry was normal bilaterally. Hearing seems intact grossly to voice and finger rub bilaterally. Palate moves well without asymmetry. There is normal sternocleidomastoid and trapezius strength bilaterally. Tongue is midline with good strength bilaterally. Neck has a full range of motion without discomfort. Gait was not tested and stance sitting up in bed with support. With outstretched arms there is no drift on the left. There are no resting, postural, or action tremors. There is no ataxia with finger to nose testing on the left. There is good facility in the left hand. No other abnormal involuntary movements are noted. The right upper extremity is plegic Motor strength is 5/5 diffusely in the left upper extremity including deltoids, biceps, triceps, brachioradialis, wrist flexors and extensors, shank burnisher, and intrinsic hand muscles. Motor strength is 5/5 diffusely in the left lower extremity including hip flexors, quadriceps, hamstrings, gastrocnemius, tibialis anterior, tibialis posterior, and Peroneii muscles. The right arm and leg are plegic with 0/5 movement and asked Greenley spastic with contractures and braces. The limbs on the left have good tone. Sensory examination is intact to touch and pin throughout all 4 limbs diffusely. Reflexes are 2/4 in the biceps, triceps, brachioradialis, quadriceps, and Achilles tendons on the right and 1/4 on these tendons on the left. Toes are downgoing with plantar stimulation on the left. Peripheral pulses are present and of normal quality distally in all 4 limbs. There is no peripheral edema noted in the limbs. Results & Data Vital Signs (Past 12 Hours) Vital Signs Pulse Pulse Resp BP BP Pulse Ox O2 Del Method 10/27/23 09:11 69 22 138/77 97 Room Air 10/27/23 07:12 67 10/27/23 07:09 67 15 132/75 97 Room Air 10/27/23 04:27 61 18 118/78 97 Room Air 10/26/23 23:04 64 10/26/23 23:00 62 14 139/83 98 PG Care Time/CCT Total # of Minutes Spent Total Time Spent with Patient: Total time spent is greater than 50% in coordination of care (as documented) at patient's floor/unit and/or counseling patient: Coding Level of Care Code 38603 INT INP/OBS CARE 3/75MIN Diagnoses History of cerebrovascular accident from left carotid artery occlusion involving left middle cerebral artery territory Z86.73 Aphasia as late effect of cerebrovascular accident I69.320 Hemiparesis affecting right side as late effect of cerebrovascular accident I69.351 Multiple falls R29.6 Vascular dementia F01.50 Time Spent (min) 75
--- NOTE | 2023-10-27 12:27 | XRay Report ---
XR KUB/Abdomen 1 view CLINICAL HISTORY: mri TECHNIQUE: 1 view of the abdomen was obtained. Comparison: Comparison is made to abdomen radiograph 08/29/2021 FINDINGS: A battery-powered device is noted in plane with the abdomen. Posterior fixation hardware and right fe moral anaid is seen. The bowel gas pattern is nonobstructive. A moderate amount of stool is noted withi n the large bowel. IMPRESSION: A battery-powered device compatible with pain pump is in satisfactory orientation for MRI. ACT 112: Negative or not required by law. Electronically signed by: Dex Moon M.D. 10/27/2023 12:25 PM
--- NOTE | 2023-10-27 13:29 | Magnetic Resonance Report ---
MRI OF THE BRAIN WITHOUT IV CONTRAST CLINICAL HISTORY: Strokelike symptoms. Frequent falls. COMPARISON STUDY: CT of the brain dated 10/26/2023. MRI of the brain dated 08/29/2021. TECHNIQUE: MRI of the brain was performed utilizing various T1 and T2-weighted sequences in the axial , sagittal, and coronal planes. IV contrast was not administered for this examination. FINDINGS: Brain parenchyma: Left MCA territory encephalomalacia is unchanged and consistent with a remote infar ct. There is associated ex vacuo dilatation of the left lateral ventricle and hemosiderin deposition. There is no acute hemorrhage or mass effect. There is no restricted diffusion to suggest acute ische beba. Leonardo-white matter differentiation is preserved. There is mild microangiopathic change. No extra- axial fluid collection is seen. The cerebellar tonsils are normal in configuration. Ventricles, sulci, and cisterns: Prominent secondary to involutional change. Pituitary and sella: Unremarkable. Intracranial vasculature: Loss of the left internal carotid artery flow void at the skull base is unc hanged and consistent with chronic occlusion. The remaining flow voids of the skull base are maintain ed. Orbits: The bony orbits are grossly intact. Orbital contents are normal in appearance. Sinuses and mastoids: Clear. Calvarium: Unremarkable. Cervical cord: Partially visualized cervical spinal cord is normal in morphology and signal intensity . IMPRESSION: 1. No acute intracranial abnormality is identified. 2. Chronic left MCA territory infarct with chronic occlusion of the left internal carotid artery at t he skull base. This is unchanged from prior studies. ACT 112: Negative or not required by law. Electronically signed by: Destin Rodriguez M.D. 10/27/2023 1:28 PM
--- NOTE | 2023-10-27 22:02 | Hospitalist Progress Note ---
Date of Service October 27, 2023 Assessment & Plan (1) Multiple falls: (2) Weakness: (3) Hemiplegia: (4) B12 deficiency: (5) Aphasia, post-stroke: (6) Hemiparesis affecting right side as late effect of cerebrovascular accident: (7) History of cerebrovascular accident from left carotid artery occlusion involving left middle cerebral artery territory: (8) Presence of intrathecal pump: Plan Multiple falls/right hemiplegia secondary to left MCA distribution CVA/generalized weakness- Admit for observation to telemetry post trauma alert No new deficits Continue baclofen intrathecal pump and as needed oral baclofen CT scan of head and cervical spine without new findings CTA head and neck showing chronic thrombosis left ICA Ordered MRI brain: negative Continue clopidogrel Order EEG Neurology consulted by ED Patient is mildly dehydrated, placed on LR at 80 mL/h x 1 L Seizure precautions Presently undergoing home PT Consult PT/OT Placement is an issue as patient does not appear to be safe at home given her recent multiple falls. Patient recently went to SNF for rehab but no significant improveemnt. She may benefit from more strenous exercise at a rehab facility where she exercises 3 hours a day. Executive function deficit- Continue clopidogrel, donepezil, memantine, duloxetine and pregabalin Hyperlipidemia- Continue atorvastatin Admission and Anticipated Discharge Date Admission Date: October 26, 2023 Subjective 68 yo female reports no new symptoms. Review of Systems Review of Systems: All systems reviewed & are unremarkable except as noted in HPI & below Physical Exam Physical Exam: The patient is awake, alert and oriented 3, normocephalic and atraumatic, lying in bed and in no acute distress. HEENT--PERRL, EOMI, mucous membranes and oropharynx mildly dry. Neck--supple. No JVD. No bruits. Thyroid normal, trachea midline, no adenopathy. Heart--normal S1 and S2. No murmurs, rubs or gallops. Lungs--clear bilaterally, no respiratory distress, no accessory muscle use. Abdomen--normal bowel sounds and soft. Nontender. Nondistended, no hernias or masses, no organomegaly. Extremities--No edema. There are good distal pulses b/l. Neurologic--cranial nerves II through XII grossly intact. Right hemiplegia Rheumatologic--normal range of motion, except right hemiplegia Psychiatric--normal affect. Results & Data Results & Data Vital Signs (Past 12 Hours) Vital Signs Temp Pulse Pulse Resp BP Pulse Ox O2 Del Method 10/27/23 19:21 36.9 C 71 18 119/73 97 Room Air 10/27/23 15:17 36.4 C L 77 16 144/77 H 99 Room Air 10/27/23 15:05 76 10/27/23 13:18 64 19 160/86 H 99 Room Air PG Care Time/CCT Total # of Minutes Spent Total Time Spent with Patient: Total time spent is greater than 50% in coordination of care (as documented) at patient's floor/unit and/or counseling patient: Coding Level of Care Code 04433 SUB INP/OBS CARE 2/35MIN Diagnoses Multiple falls R29.6 Weakness R53.1 Hemiplegia G81.90 Hemiplegia type: spastic Hemiplegia etiology: late effect of cerebrovascular disease Hemiplegia laterality: right dominant side B12 deficiency E53.8 Aphasia, post-stroke I69.320 Hemiparesis affecting right side as late effect of cerebrovascular accident I69.351 History of cerebrovascular accident from left carotid artery occlusion involving left middle cerebral artery territory Z86.73 Presence of intrathecal pump Z96.89 (3) Hemiplegia Hemiplegia type: spastic Hemiplegia etiology: late effect of cerebrovascular disease Hemiplegia laterality: right dominant side
--- NOTE | 2023-10-28 06:06 | Communication Note ---
Date of Service: October 28, 2023 Notified by nursing that patient was dizzy, clammy, and sweaty. BP was decreased and her HR was in the 40s. Directed nursing to obtain BSG, vitals, EKG, and place patient in Trendelenburg. Resident to bedside. Patient pale and clammy after a blood draw. BSG 83. BP on the low side. Ordered 500 mL NSS bolus. EKG with NSR. Patient reports prior fainting with blood draws. BP 110/71 after a few minutes. Most likely vasovagal event as significant improvement with fluids and Trendelenburg positioning. Case discussed with Dr. Trinh.
[2023-10-28] MEDS: SODIUM CHLORIDE 0.9% 500 ML IV ONE (06:07)
[2023-10-28 06:18] LABS: Basophils # (auto) 0.05 K/uL (0.00-0.20); Basophils % (auto) 0.8 %; Eosinophils # (auto) 0.78 K/uL (0.00-0.50); Hematocrit (blood only) 35.5 % (37.0-47.0); Hemoglobin 12.2 g/dl (12.0-16.0); Immature Granulocytes # (auto) 0.01 K/uL (0.01-0.20); Immature Granulocytes % (auto) 0.2 %; Lymphocytes # (auto) 2.77 K/uL (1.20-3.40); Lymphocytes % (auto) 42.7 %; Mean Corpuscular Hemoglobin 30.7 pg (25.0-34.0); Mean Corpuscular Hgb Conc 34.4 g/dL (32.0-36.0); Mean Corpuscular Volume 89.2 fL (80.0-100.0); Mean Platelet Volume 10.8 fL (9.4-12.4); Monocytes # (auto) 0.65 K/uL (0.11-0.59); Neutrophils # (auto) 2.22 K/uL (1.40-6.50); Neutrophils % (auto) 34.3 %; Platelet Count 371 K/uL (130-400); RDW Standard Deviation 42.8 fL (36.4-46.3); Red Blood Count 3.98 M/uL (4.20-5.40); White Blood Count 6.48 K/ul (4.8-10.8)
[2023-10-28 06:34] LABS: Albumin Level 3.7 gm/dl (3.4-5.0); BUN Creatinine Ratio 8.3 (10-20); Calcium 8.6 mg/dl (8.6-10.3); Creatinine Clr Calc Pharmacy 96.9 ml/min; Est GFR (African American) 116.8 ml/min; Est GFR (Non-African American) 100.8 ml/min; Magnesium 2.1 mg/dl (1.7-2.4); Phosphorus 3.9 mg/dl (2.5-4.9); Potassium 4.3 mmol/L (3.5-5.1)
[2023-10-28 06:43] LABS: RBC Morphology Unremarkable
[2023-10-28 06:57] VITALS: RESP 18
[2023-10-28] MEDS: ATORVASTATIN 10 MG TAB PO SCH (08:14)
--- NOTE | 2023-10-28 09:22 | Neurology Progress Note ---
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 She also has chronic pain from her lumbar spine fusion (T11-S1) on multiple chronic pain medicines. Patient has been falling, in her opinion, from losing her balance. There is concern that she has had seizures resulting in falls. It is difficult to be certain , since there were no witnessed seizures (or history of seizures), although she is at risk for left brain seizures due to her large stroke. I would expect seizures to occur randomly no matter what she is doing as opposed to just making her fall. Nevertheless, I cannot entirely exclude seizures. Although she is considered a little weaker in general, she does not have any new focal neurologic findings to suggest a further stroke. MRI of the brain showed no new stroke. Actually, she is likely at her baseline strength currently. The patient has a relatively mild vascular dementia, on medication Therefore, however, in lieu of her previous stroke (with subsequent severe disability from spastic hemiplegia) and mild dementia, she is a considerable fall risk. Recommendations: 1. EEG could be done but at this point she is already on Depakote and this study is not necessary (likely would be normal anyway). 2. Continue Depakote ER 500 mg once daily (24-hour release), for empiric seizure control. 3. Increase activity and consider physical and Occupational Therapy consults. 4. Although the patient adamantly wants to go home I am concerned about the fact that she lives alone as well as being a fall risk. Perhaps home services could be arranged. 5. Follow-up with Dr. Conner (or neurology PA) 3 to 4 weeks after discharge Overall, I spent a total of 35 minutes with this case including review of records, review of MRI films, direct evaluation patient at bedside, report generation, and discussion of the case with the patient and RN at bedside and Dr. Nunez, including differential diagnosis and treatment options. Admission and Anticipated Discharge Date Admission Date: October 27, 2023 Subjective Patient has no complaint of pain or headache. Her arms and legs feel as they did before. Nursing reports no seizures or incidents overnight. She got up and walked to the bathroom without too much difficulty this morning with the nurse. MRI of the brain October 26 showed the relatively large, old left middle cerebral artery territory infarct. There was the old left internal carotid artery occlusion at the skull base. Overall, the MRI showed no new issues and no changes compared to the previous study of August 2021. I reviewed these films. The patient an episode of hypotension and bradycardia responded to by fluids. It was felt that this was due to a vasovagal event CBC was largely unremarkable. CHEM profile unremarkable as well. Lyme antibody, Babesia, and anaplasmosis studies were unremarkable. Results & Data Vital Signs (Past 12 Hours) Vital Signs Temp Pulse Pulse Resp BP BP Pulse Ox 10/28/23 06:56 36.6 C 76 18 107/70 96 10/28/23 05:59 66 110/71 10/28/23 05:48 70 105/69 99 10/28/23 05:46 64 97/63 L 99 10/28/23 05:43 36.7 C 65 16 81/54 L 96 10/28/23 05:40 43 L 10/28/23 02:23 36.8 C 69 18 101/65 96 10/27/23 23:11 79 10/27/23 22:45 36.8 C 75 18 121/68 96 O2 Del Method 10/28/23 06:56 Room Air 10/28/23 05:59 10/28/23 05:48 Room Air 10/28/23 05:46 Room Air 10/28/23 05:43 Room Air 10/28/23 05:40 10/28/23 02:23 Room Air 10/27/23 23:11 10/27/23 22:45 Room Air Exam (Neuro) Physical Exam: She is awake and alert. Speech is stable and at her baseline. Mood is normal and affect is appropriate. Conversation and thought processes seem reasonable. Extraocular eye muscles are intact without nystagmus. There is no obvious f acial droop and tongue is midline. Coordination is normal in the left upper extremity and the left arm and leg 5/5 strength diffusely. The right arm and leg have the spastic hemiplegia as before PG Care Time/CCT Total # of Minutes Spent Total Time Spent with Patient: Total time spent is greater than 50% in coordination of care (as documented) at patient's floor/unit and/or counseling patient: Coding Level of Care Code 31414 SUB INP/OBS CARE 2/35MIN Diagnoses History of cerebrovascular accident from left carotid artery occlusion involving left middle cerebral artery territory Z86.73 Aphasia as late effect of cerebrovascular accident I69.320 Hemiparesis affecting right side as late effect of cerebrovascular accident I69.351 Multiple falls R29.6 Vascular dementia F01.50 Time Spent (min) 35
[2023-10-28] MEDS: DIVALPROEX EXTENDED RELEASE 500 MG TAB PO SCH (10:14)
[2023-10-28 11:00] VITALS: BP 97/60; PULSE 75; TEMP 98.4; O2SAT 98
[2023-10-28] MEDS ORDERED: MIDODRINE HCL 2.5 MG TAB PO SCH (12:00)
--- NOTE | 2023-10-28 13:01 | Discharge Summary ---
Discharge Summary Date of Service October 28, 2023 Principal Dx & Hospital Course #1 = Principal Diagnosis (1) Multiple falls: Chronic recurrent problem. Continue physical therapy as an outpatient (2) Weakness: Chronic problem. 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 She refuses to take Depakote as recommended by neurology and also refuses midodrine to hopefully prevent further episodes of low blood pressure. She refuses to consider SNF or rehab placement. Admission HPI Per Admitting Provider The patient is a 68-year-old female with a past medical history including all falls, generalized weakness, right hemiplegia secondary to CVA, aphasia, B12 deficiency, presence of intrathecal baclofen pump, lumbar postlaminectomy syndrome, history of left MCA territory CVA, and ambulatory dysfunction. She presents to the emergency department after multiple falls over the past few days, and was noted to have a contusion to her right shoulder and reported to family and friends that she had worsening weakness than usual. there was concern from the ED regarding possibility of a seizure. Discharge Exam General-alert and oriented x3, no fever, no chills HEENT-head atraumatic and normocephalic, pupils equal and reactive to light, extraocular muscles intact Neck-no lymphadenopathy or thyromegaly, trachea midline Chest-clear to auscultation. No rales, wheezing or rhonchi Cardiac-regular rate and rhythm, normal S1 and S2 Abdomen-normal bowel sounds, no hepatosplenomegaly Extremities-no cyanosis, clubbing, or edema Neuro-cranial nerves II through XII intact, chronic right hemiplegia from old ischemic left CVA, dysphasia Psych-normal affect, normal mood Discharge Plan Discharge Items Patient Disposition: Home - Home Health Services Reason For Visit: FALL Discharge Diagnosis: Multiple falls, transient hypotension Activity: Resume your previous activity Non-emergency contact: Primary Care Provider Call non-emergency contact if: your symptoms worsen Follow-up/Referrals: Aaron Bowers MD [Primary Care Provider] - Diet: Regular and Heart Healthy Addtl Attending Provider Instructions: No new medications at this time. You refused to take Depakote at the request of the neurologist and midodrine to hopefully prevent further episodes of low blood pressure Pending Studies at Discharge: No Stand-Alone Forms: My [facility] [employer], Smoking Cessation Medications and DC Order Prescriptions: Continued baclofen 10 mg tablet 10 mg PO DAILY PRN (Reason: spasms) Qty: 90 3RF Rx Instructions: last filled 11/27/22 memantine 10 mg tablet 10 mg PO BID 90 Days Qty: 180 3RF Rx Instructions: filled 03/24/23 90 day supply donepezil 10 mg tablet 10 mg PO DAILY Qty: 90 3RF Rx Instructions: filled 08/04/23 90 day supply clopidogrel 75 mg tablet 75 mg PO HS Qty: 90 3RF celecoxib 200 mg capsule 200 mg PO QAM Qty: 90 3RF duloxetine [Cymbalta] 30 mg capsule,delayed release(DR/EC) 30 mg PO DAILY Qty: 30 5RF cyproheptadine 4 mg tablet 4 mg PO HS Qty: 30 6RF potassium chloride 10 mEq capsule, extended release 10 meq PO DAILY Rx Instructions: filled 03/25/23 90 day supply valacyclovir 500 mg tablet 500 mg PO BID PRN (Reason: Other) Rx Instructions: Take 1 tablet twice daily as directed. Vitamin B-6 50 mg capsule 50 mg PO WK Patient Comments: TAKES TUESDAYS - states that she is taking 500mg Rx Instructions: Thursday baclofen 40,000 mcg/20mL (2,000 mcg/mL) Solution 0 mcg continuous intrathecal infusion UD atorvastatin 10 mg tablet 10 mg PO UD Rx Instructions: 10 mg orally 3 times weekly; thu pregabalin 100 mg capsule 100 mg PO TID Qty: 30 0RF Discharge Orders: Discharge Order (Routine); Ordered 10/28/23 Ordered By: Antione Nunez Admission Data Admit Date/Time: 10/27/23 22:08 Attending Provider: Antione Nunez Admit Provider: Isac Estrada Primary Care Provider: Aaron Bowers Other Providers: Lupillo Trinh; Suleiman Conner; Henry Ch; Tracy Motta; Kimberly Bassett; Stacy Fritz; Vijay Rueda; Counts Include [facility] Stay Data Consultations 10/26/23 19:56 ED Decision to Admit Stat 10/27/23 09:30 Consult Neurology Routine Diagnostic Imagining Performed 10/26/23 15:44 CT cervical spine wo con Stat CT head/brain wo con Stat 10/26/23 15:50 CT angio head w con Stat CT angio neck with con Stat 10/27/23 10:03 MR brain wo con Routine Pending Results Patient Have Any Pending Studies at Discharge: No Discharge Instructions Given to Patient (Per Discharging Provider) No new medications at this time. You refused to take Depakote at the request of the neurologist and midodrine to hopefully prevent further episodes of low blood pressure Total Time Total Time Spent Total Time Spent (In Minutes): 45 minutes Coding Level of Care Code 19947 INP/OBS DISCH >30 MIN Diagnoses Multiple falls R29.6 Weakness R53.1 Hemiplegia G81.90 Hemiplegia type: spastic Hemiplegia etiology: late effect of cerebrovascular disease Hemiplegia laterality: right dominant side B12 deficiency E53.8 Aphasia, post-stroke I69.320 Hemiparesis affecting right side as late effect of cerebrovascular accident I69.351 History of cerebrovascular accident from left carotid artery occlusion involving left middle cerebral artery territory Z86.73 Presence of intrathecal pump Z96.89
[2023-10-31 15:29] LABS: Babesia microti DNA Not Detected (Not Detected)
[2023-10-31 16:09] LABS: Ehrlichia chaff DNA Bld Negative (Negative)
--- NOTE | 2023-11-04 15:41 | Electrocardiogram Report ---
Test Reason : Blood Pressure : */* mmHG Vent. Rate : 63 BPM Atrial Rate : 63 BPM P-R Int : 164 ms QRS Dur : 70 ms QT Int : 410 ms P-R-T Axes : 58 15 65 degrees QTcB Int : 419 ms Normal sinus rhythm Low voltage QRS Borderline ECG When compared with ECG of 26-Oct-2023 15:51, Criteria for Septal infarct are no longer Present Confirmed by Renay Steen (Jorge) on 10/31/2023 1:31:15 PM Referred By: REFERRED SELF Confirmed By: Renay Steen
== END 2023-10-28 14:21 | disposition home health service (06) | DRG 57 ==
LOC: ED 15:09 → EDINP 15:09 → SUATTDRO 19:39 → 2S 22:23 → SUATTDRO 10-27 22:08

== ENCOUNTER 2024-03-06 18:40 | Inpatient (IN) ==
--- NOTE | 2024-03-06 18:58 | Emergency Department Note ---
Impression & Plan Fall, Acute UTI, Pneumonia, Thrombocytosis, Fracture of proximal end of tibia, Lateral malleolar fracture, Closed fracture nasal bone ED Provider Note CHIEF COMPLAINT: Fall HISTORY OF PRESENTING ILLNESS: This 68-year-old female patient presents to the emergency department via EMS from [facility] for evaluation of a fall. Per staff, she was found between the toilet and the wall this morning prior to breakfast. Unknown how long she had been down for. The patient has a history of dementia as well as expressive aphasia and right hemiparesis from her previous stroke. She is unable to give additional history at this time. Apparently the afternoon/evening staff noticed redness and swelling to the right side of her face and right lower leg. She is on Plavix and Lovenox. She does not remember the events of the fall. [facility] staff did not give any additional history in regards to other symptoms. REVIEW OF SYSTEMS: See HPI for pertinent positives and pertinent negatives. ALLERGIES: Keflex, penicillin MEDICATIONS: See below PAST MEDICAL HISTORY: See below PHYSICAL EXAM: VITALS: Vitals are noted on the nurse's note and reviewed by myself. GENERAL: No acute distress, non-diaphoretic. SKIN: The skin was without obvious lacerations or abrasions. See face and musculoskeletal exam. Capillary reflex less than 2 seconds. HEAD: Normocephalic. No scalp tenderness or step-offs felt. EARS: Bilateral external auditory canals clear without tragus tenderness. Bilateral tympanic membranes pearly garsia without erythema or effusion. No mastoid tenderness bilaterally. No hemotympanum. No samayoa sign. EYES: Pupils equal round and reactive to light and accommodation. Conjunctivae without injection, sclerae without icterus. Extraocular movements intact. No nystagmus. NOSE: The patient is mildly tender to palpation over the nasal bridge. No obvious deformity noted. Patent without discharge. No sinus tenderness. No septal hematoma or bleeding. FACE: The patient has mild edema to the right cheek and the right side of the nose. She is mildly tender to palpation in this area. Full range of motion of the jaw without tenderness. MOUTH: Mucous membranes moist. Pharynx without erythema or exudate. Uvula midline. Airway patent. NECK: Supple without nuchal rigidity. Cervical spine is nontender. No paraspinal muscle tenderness. HEART: Regular rate and rhythm without murmurs gallops or rubs. LUNGS: Clear to auscultation bilaterally without wheezes, rales or rhonchi. No retractions or accessory muscle use. CHEST: No chest wall tenderness, flail chest, or fracture crepitus. ABDOMEN: Positive bowel sounds x 4. Normal tympanic percussion. Soft, nontender, without masses or organomegaly. No guarding or rebound tenderness. MUSCULOSKELETAL: The patient is mildly tender to palpation over the lumbar spine and paraspinal muscles. No tenderness to palpation over the thoracic spine or paraspinal muscles. No tenderness with pelvic rocking. The patient has a right hemiparesis. The patient is mildly tender to palpation over the right anterior lower tib-fib. No other obvious tenderness to palpation over the extremities. Peripheral pulses 2+ and equal in the bilateral upper and lower extremities. RECTAL EXAM: Permission to perform the exam. Senior Corporate Strategy Manager present for exam. No external lesions noted. No external hemorrhoids. Normal sphincter tone. Internal hemorrhoids are not enlarged. No masses, tears, fistulas, fissures, abscess, or other lesion noted. Stool is brown and Hemoccult negative. NEURO: The patient has severe aphasia as well as dementia. The patient is sometimes able to answer yes and no questions and sometimes not. The patient goes in and out of alertness. Unknown what her baseline is. DIFFERENTIAL DIAGNOSIS: Differential diagnosis includes concussion, contusion, fracture, subluxation, dislocation, subdural hematoma, epidural hematoma, intraparenchymal hemorrhage, contusion, ligamentous injury, neurovascular, compartment syndrome, rhabdomyolysis, intra-abdominal injury, splenic rupture, hepatic rupture, rib fractures, cardiac contusion, pneumothorax, hemothorax, cardiac tamponade, intrathoracic injury, neurologic, as well as other pathologies. ED COURSE AND MEDICAL DECISION MAKING: HISTORY FROM INDEPENDENT HISTORIAN: Additional history obtained from EMS and [facility] staff. MEDICATIONS GIVEN: 500 ml NSS bolus. Levaquin 750 mg IV. MONITOR: Continuous chief technical officer: Order was placed for continuous chief technical officer. Patient was placed on the chief technical officer and continuous pulse ox. Patient was noted to be in normal sinus rhythm at an initial rate of 80 bpm per my interpretation. EKG: EKG was interpreted by myself as normal sinus rhythm at 90 bpm with no acute ST or T wave changes. INTERPRETATION OF LABS: I interpreted the labs with full lab results as below in the lab section of this note. Pertinent lab results discussed in the MDM section below. INTERPRETATION OF IMAGING: Imaging studies were interpreted by myself and read by radiology as per the imaging section of this note. CT scan of the head without contrast was negative for acute intracranial or traumatic abnormality, but does show chronic changes as below. CT scan of the cervical spine without contrast shows no acute fracture or subluxation. CT scan of the face without contrast shows a right nasal bone fracture, but no other acute or traumatic findings. CT scan of the thoracic spine with contrast shows a T8 vertebral superior endplate anterior wedge compression/fracture of indeterminate age. However, on the CT scan of the chest, they noted that the fracture appears chronic. CT scan of the lumbar spine with IV contrast shows postsurgical thoracolumbar sacral spine. Osteoporosis. Possible L4 and L5 vertebral fractures. Suspect subtle fracture of the left sacral ala. Moderate dextroscoliosis. Exaggerated lumbar lordosis. Multilevel moderately advanced degenerative spondylosis. CT scan of the chest with IV contrast shows moderate volume bilateral new pleural effusions with overlying consolidation/atelectasis and corresponding interstitial infiltrates R>L. Mild cardiomegaly. A nondisplaced old fracture of the right third rib posteriorly. T8 vertebral superior endplate mild/moderate chronic compression fracture seen that is similar to the prior exam. CT scan of the abdomen pelvis with IV contrast shows a markedly limited/nondiagnostic exam due to the patient's baclofen pump. There is a moderately large size hiatal hernia. Possible mucosal thickening of fluid/gas- filled normal caliber small bowel loops/enteritis. Gas/stool-filled mild/moderately distended large bowel loops. Irregular lobulation/abnormal wall thickening of a moderately distended rectum suspicious for malignancy. X-rays of the right tib-fib show osteopenia as well as a mildly displaced intra- articular fracture of the lateral corner of the right proximal tibia. Likely a subtle nondisplaced cortical fracture laterally of the lateral malleolus. Periarticular soft tissue swelling more laterally. Tricompartmental right knee osteoarthritis. EXTERNAL RECORDS REVIEWED: I reviewed the patient's last PCP office visit note from 02/25/2024. It appears that the patient is now using a wheelchair to move from one place to another due to frequent falls. It also notes that she has had a significant cognitive decline which is presenting as severe aphasia. Her PCP suspected that her multiple head traumas in the past 3 months have contributed substantially to this current situation. The patient was to be referred to an net c developer due to her hemiparesis of the right side. CHRONIC MEDICAL/SOCIAL CONDITIONS AFFECTING CARE: The patient has dementia, aphasia, and right hemiparesis from her previous stroke and is unable to reliably answer questions and is a poor historian. CONSULTATIONS: On-call hospitalist SPLINTING: Definitive fracture care was performed by myself. The patient was placed in a posterior long-leg splint in a position of comfort under my direction. Neurovascular status was rechecked and intact. MDM SUMMARY: I examined the patient. The patient presents to the ER via ambulance from [facility]. The patient was found on the bathroom floor between the toilet and the wall this morning by staff. Unknown how long the patient was on the floor. Apparently garden center manager staff noticed a simin to the right side of her face and her right leg and became concerned. The patient was not sent to the ER until 1830 this evening. The patient has a history of dementia, aphasia, and right hemiparesis and is a very poor historian. On exam the patient has mild tenderness to palpation over the anterior aspect of the right lower tib-fib and the right side of her face. The patient winces in some pain with trying to roll her and move her around, but she is unable to localize where the pain is coming from. No other obvious tenderness to palpation on exam, but exam was somewhat difficult given her underlying conditions. The patient is on Plavix and Lovenox. An IV lock was placed and labs were drawn. The patient declined any medication for pain while in the ER. The patient was given 500 mL normal saline solution bolus. White blood cell count normal at 9.53. Hemoglobin was low at 8.6 with her baseline appearing to be around 11. Platelet count was significantly elevated at 1038 with her highest previous platelet counts never above 435. Repeat CBC with differential showed a hemoglobin of 7.9 and platelet count of 993. Rectal exam with heme-negative stool. Coags were normal. Sodium appears stably low at 129. Other chronic changes on her CMP, but no acute abnormalities. Lactate was normal. CPK normal. Magnesium normal. High- sensitivity troponin was normal. The patient's cath urinalysis appears infected with 3+ leukocyte esterase, greater than 50 white blood cells, 6-10 red blood cells, 6-10 epithelial cells, and 1+ bacteria. Urine culture is pending. COVID-negative. Blood cultures are pending. Due to the unknown cause of the patient's fall and the patient unable to reliably communicate her symptoms, full imaging workup was performed as above. Question whether the patient's findings are acute or chronic as the patient's physical exam does not necessarily align with the CT scan findings. The patient was placed in a posterior long-leg splint for the right leg fracture. Blood cultures were obtained and the patient was given Levaquin 750 mg IV for the UTI and possible pneumonia seen on CT scan. I had a meaningful discussion about this patient with Dr. Rodriguez who agrees with my assessment and the treatment plan. The patient will require admission for further evaluation and management of her elevated platelet count of unknown etiology as well as her multiple other findings on imaging. I spoke with the on-call hospitalist who agreed to admit the patient for further evaluation and treatment. Please refer to their dictation for further details. The patient's care was transferred in stable condition. DIAGNOSIS: Fall UTI ? pneumonia Thrombocytosis Multiple abnormal CT scan findings - questionable acute versus chronic etiology Right proximal tibia fracture Right lateral malleolus fracture Nasal bone fracture Past Med/Surg History Problem List (Updated 03/07/24 @ 01:41 by Christa Yao PA-C) Closed fracture nasal bone (Acute) Lateral malleolar fracture (Acute) Fracture of proximal end of tibia (Acute) Thrombocytosis (Acute) Pneumonia (Acute) Acute UTI (Acute) Fall (Acute) Traumatic brain injury with delayed recovery Fracture of scapula (Acute ~11/22/23) Multiple fractures of ribs, right side, initial encounter for closed fracture (Acute ~11/22/23) nondisplaced lateral second rib fracture and mildly displaced fourth through sixth rib fractures. Focal bandlike sclerosis is suspicious for a subtle nondisplaced fracture involving the right seventh rib. Similar posterior fractures on the right at the fourth through seventh right ribs. No displaced left rib fracture Multiple fractures of ribs of right side (Acute 11/22/23) In addition to the mildly displaced lateral right third and sixth rib fractures noted previously, there is now nondisplaced lateral second rib fracture and mildly displaced fourth through sixth rib fractures. Focal bandlike sclerosis is suspicious for a subtle nondisplaced fracture involving the right seventh rib. Similar posterior fractures on the right at the fourth through seventh right ribs. No displaced left rib fracture from a fall Closed fracture of one rib (Acute ~11/06/23) acute fracture of the right sixth rib laterally Frequent falls Transient alteration of awareness Weakness Neurogenic bladder Incontinence Multiple falls (Acute) Weakness (Acute) Malnutrition compromising bodily function Seizure Superficial thrombophlebitis of arm Hyponatremia Lumbar pain Weight loss Aphasia due to disease due to b12 deficiency Hypokalemia Fall (on) (from) other stairs and steps, initial encounter Osteoarthritis Encounter for routine gynecological examination Executive function deficit Sacroiliac inflammation Carpal tunnel syndrome (Chronic) Neck pain (Acute) Lumbar postlaminectomy syndrome (Chronic) History of lumbar fusion (Chronic) X 2 Change in bowel habits Medical History (Updated 03/07/24 @ 01:41 by Christa Yao PA-C) Headache, post-traumatic, acute Vascular dementia B12 deficiency expressive aphasia Aphasia, post-stroke Hemiparesis affecting right side as late effect of cerebrovascular accident Aphasia as late effect of cerebrovascular accident History of cerebrovascular accident from left carotid artery occlusion involving left middle cerebral artery territory Hemiplegia Right side > wears AFO brace on RLE, no control of right arm History of CVA (cerebrovascular accident) 1998 large left MCA territory in setting of occluded left carotid potentially related to oral contraception at that time > chronic spastic right hemiparesis, flaccid upper limb and mild to moderate expressive aphasia > on plavix > follows with [place] neuro Fall External constriction of left ring finger, initial encounter Sciatica Osteoporosis with fracture Hyperplastic colon polyp Ring or other jewelry causing external constriction, initial encounter Fall Closed femur fracture Memory loss Left carotid artery occlusion Vasovagal syncope if not laying flat during blood draws Encounter for pre-operative examination Memory problem History of depression 1998 per pt Hypertension controlled, stable per pt Chronic constipation with overflow 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 (CVA) 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 (CVA) CVA (cerebral vascular accident) Laceration of eyebrow, right Head trauma Osteoporosis Stroke Surgical History Presence of intrathecal pump Family history of reaction to anesthesia Mother: slow to wake History of gynecologic surgery Labial "removal" History of back surgery Lumbar fusion x2 History of colonoscopy History of tooth extraction History of tonsillectomy Family History Father Cancer Family history of esophageal cancer Other No pertinent family history Denies family history of Ovarian cancer Prostate cancer Diabetes Myocardial infarction Breast cancer Colorectal cancer Hypertension Social History Smoking Status: Unknown if ever smoked Tobacco Type: Declines Age Started Using Tobacco: 12; Age Quit Using Tobacco: 22; packs per day: 0.1; Second Hand Exposure: No; Do You Dip or Chew Tobacco: No; Hx Alcohol Use: No Hx Substance Use: No Preferred Language: Romansh Communication Ability: Effective Communication Ability Comment: Expressive aphasia from previous CVA Visual Impairment: Limited Vermin Exterminator 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 Beliefs That Will Affect Care: None marital status: Single Current Living Situation: Alone Current Living Situation Comment: Lives home alone current occupational status: retired How many Children do You have: 0 Feels Safe at Home: Yes Childhood Exposure to Second-Hand Smoke: Yes caffeine: Yes (coffee) Dental Care, Regularly: Yes Physical Activity Frequency: Daily Seatbelt Use: always Sunscreen Use: Yes Assistive Devices: Cane and Stair Lift Allergies Allergies Allergy/AdvReac Type Severity Reaction Status Date / Time cephalexin Allergy Severe Anaphylaxis Verified 02/25/24 10:29 Penicillins AdvReac Mild nausea Verified 02/25/24 10:29 Home Meds Home Medications Medication Instructions Recorded Confirmed baclofen 40,000 mcg/20 mL (2,000 0 mcg continuous intrathecal 08/04/21 02/25/24 mcg/mL) intrathecal solution infusion UD potassium chloride 10 mEq 10 meq PO DAILY 06/15/23 02/25/24 capsule,extended release atorvastatin 10 mg tablet 10 mg PO 3XWK 09/28/23 02/25/24 cholecalciferol (vitamin D3) 25 25 mcg PO DAILY 02/18/24 02/25/24 mcg (1,000 unit) capsule docusate sodium 100 mg capsule 100 mg PO BID 02/18/24 02/25/24 enoxaparin 30 mg/0.3 mL 30 mg subcut BID 02/18/24 02/25/24 subcutaneous syringe (Lovenox) lidocaine 4 % topical patch 1 patch topical DAILY 02/18/24 02/25/24 (Aspercreme (lidocaine)) ondansetron HCl 4 mg tablet 4 mg PO Q4H PRN 02/18/24 02/25/24 sennosides 8.6 mg tablet (Senokot) 17.2 mg PO BID 02/18/24 02/25/24 sodium chloride 2 g PO BID 02/18/24 02/25/24 Previous Rx's Medication Instructions Recorded baclofen 10 mg tablet 10 mg PO DAILY PRN spasms #90 tabs 12/01/22 celecoxib 200 mg capsule 200 mg PO QAM #90 caps 03/20/23 clopidogrel 75 mg tablet 75 mg PO HS #90 tabs 03/20/23 duloxetine 30 mg capsule,delayed 30 mg PO DAILY #30 caps 11/12/23 release (Cymbalta) Wheelchair (Manual) #1 ea 02/25/24 Results & Data (ED) Vital Signs Vital Signs - 24 hr 03/06/24 18:31 03/06/24 18:31 03/06/24 19:06 Temperature 37.3 C Temperature Source Oral Pulse Rate 109 H Pulse Rate [Apical] 109 H Pulse Rate from SpO2 Sensor Pulse Rhythm Regular Pulse Rhythm [Apical] Regular Pulse Strength Normal Pulse Strength [Apical] Normal Respiratory Rate 18 18 Respiratory Effort / Characteristics Non-Labored Non-Labored Respiratory Depth Normal Normal Respiratory Pattern Regular Regular Blood Pressure 120/86 Blood Pressure [Left Arm] 120/86 Blood Pressure Mean 97 Blood Pressure Mean [Left Arm] 97 Blood Pressure Position Lying Blood Pressure Position [Left Arm] Lying Pulse Oximetry 94 94 94 Oxygen Delivery Method Room Air Room Air Room Air Sepsis Recent Fever Within 48 Hours No Sepsis New/Unexplained Change in Mental Status No Sepsis Action Taken by Nursing No Action Required 03/06/24 19:56 03/06/24 20:31 03/06/24 20:39 Temperature Temperature Source Pulse Rate 97 H 101 H Pulse Rate [Apical] 97 H Pulse Rate from SpO2 Sensor 100 H Pulse Rhythm Pulse Rhythm [Apical] Pulse Strength Pulse Strength [Apical] Respiratory Rate 15 17 Respiratory Effort / Characteristics Non-Labored Spontaneous Respiratory Depth Normal Respiratory Pattern Blood Pressure Blood Pressure [Left Arm] 134/73 Blood Pressure Mean Blood Pressure Mean [Left Arm] 93 Blood Pressure Position Blood Pressure Position [Left Arm] Pulse Oximetry 94 93 Oxygen Delivery Method Room Air Sepsis Recent Fever Within 48 Hours Sepsis New/Unexplained Change in Mental Status Sepsis Action Taken by Nursing 03/06/24 21:12 03/06/24 21:21 03/06/24 21:36 Temperature Temperature Source Pulse Rate 92 H 106 H 89 Pulse Rate [Apical] Pulse Rate from SpO2 Sensor 92 H 89 Pulse Rhythm Pulse Rhythm [Apical] Pulse Strength Pulse Strength [Apical] Respiratory Rate 14 23 13 Respiratory Effort / Characteristics Respiratory Depth Respiratory Pattern Blood Pressure Blood Pressure [Left Arm] Blood Pressure Mean Blood Pressure Mean [Left Arm] Blood Pressure Position Blood Pressure Position [Left Arm] Pulse Oximetry 95 94 Oxygen Delivery Method Sepsis Recent Fever Within 48 Hours Sepsis New/Unexplained Change in Mental Status Sepsis Action Taken by Nursing 03/06/24 21:45 03/06/24 22:00 03/06/24 22:00 Temperature Temperature Source Pulse Rate 88 87 Pulse Rate [Apical] 90 Pulse Rate from SpO2 Sensor 88 87 Pulse Rhythm Pulse Rhythm [Apical] Pulse Strength Pulse Strength [Apical] Respiratory Rate 13 14 14 Respiratory Effort / Characteristics Non-Labored Spontaneous Respiratory Depth Normal Respiratory Pattern Regular Blood Pressure Blood Pressure [Left Arm] 134/74 Blood Pressure Mean Blood Pressure Mean [Left Arm] 94 Blood Pressure Position Blood Pressure Position [Left Arm] Pulse Oximetry 94 94 94 Oxygen Delivery Method Room Air Sepsis Recent Fever Within 48 Hours Sepsis New/Unexplained Change in Mental Status Sepsis Action Taken by Nursing 03/06/24 22:03 03/06/24 22:18 03/06/24 22:24 Temperature Temperature Source Pulse Rate 87 90 90 Pulse Rate [Apical] Pulse Rate from SpO2 Sensor 87 90 90 Pulse Rhythm Pulse Rhythm [Apical] Pulse Strength Pulse Strength [Apical] Respiratory Rate 15 13 13 Respiratory Effort / Characteristics Respiratory Depth Respiratory Pattern Blood Pressure 134/74 Blood Pressure [Left Arm] Blood Pressure Mean 94 Blood Pressure Mean [Left Arm] Blood Pressure Position Blood Pressure Position [Left Arm] Pulse Oximetry 94 94 94 Oxygen Delivery Method Sepsis Recent Fever Within 48 Hours Sepsis New/Unexplained Change in Mental Status Sepsis Action Taken by Nursing 03/06/24 22:42 03/06/24 22:51 03/07/24 00:00 Temperature Temperature Source Pulse Rate 90 88 84 Pulse Rate [Apical] Pulse Rate from SpO2 Sensor 90 88 84 Pulse Rhythm Pulse Rhythm [Apical] Pulse Strength Pulse Strength [Apical] Respiratory Rate 17 13 14 Respiratory Effort / Characteristics Respiratory Depth Respiratory Pattern Blood Pressure Blood Pressure [Left Arm] Blood Pressure Mean Blood Pressure Mean [Left Arm] Blood Pressure Position Blood Pressure Position [Left Arm] Pulse Oximetry 94 94 95 Oxygen Delivery Method Room Air Sepsis Recent Fever Within 48 Hours Sepsis New/Unexplained Change in Mental Status Sepsis Action Taken by Nursing 03/07/24 00:05 Temperature Temperature Source Pulse Rate 82 Pulse Rate [Apical] Pulse Rate from SpO2 Sensor Pulse Rhythm Pulse Rhythm [Apical] Pulse Strength Pulse Strength [Apical] Respiratory Rate Respiratory Effort / Characteristics Respiratory Depth Respiratory Pattern Blood Pressure Blood Pressure [Left Arm] Blood Pressure Mean Blood Pressure Mean [Left Arm] Blood Pressure Position Blood Pressure Position [Left Arm] Pulse Oximetry Oxygen Delivery Method Sepsis Recent Fever Within 48 Hours Sepsis New/Unexplained Change in Mental Status Sepsis Action Taken by Nursing Laboratory Data 03/07/24 00:23 03/06/24 19:34 Lab Results 03/06/24 03/06/24 03/06/24 Range/Units 19:34 19:41 21:29 WBC 9.53 (4.8-10.8) K/ul RBC 3.66 L (4.20-5.40) M/uL Hgb 8.6 L (12.0-16.0) g/dl POC Hgb 9.9 L (12.0-16.0) g/dl Hct 28.1 L (37.0-47.0) % POC Hct 29 L (37-47) % MCV 76.8 L (80.0-100.0) fL MCH 23.5 L (25.0-34.0) pg MCHC 30.6 L (32.0-36.0) g/dL RDW Std Deviation 46.0 (36.4-46.3) fL RDW Coeff of Tera 16.4 H (11.5-14.5) % Plt Count 1038 H* (130-400) K/uL MPV 8.6 L (9.4-12.4) fL Immature Gran % (Auto) 0.3 % Neut % (Auto) 67.0 % Lymph % (Auto) 20.7 % [place] % (Auto) 11.2 % Eos % (Auto) 0.5 % Baso % (Auto) 0.3 % Neut # (Auto) 6.38 (1.40-6.50) K/uL Lymph # (Auto) 1.97 (1.20-3.40) K/uL [place] # (Auto) 1.07 H (0.11-0.59) K/uL Eos # (Auto) 0.05 (0.00-0.50) K/uL Baso # (Auto) 0.03 (0.00-0.20) K/uL Immature Gran # (Auto) 0.03 (0.01-0.20) K/uL Polychromasia PT 11.4 (9.0-12.0) Seconds INR 1.1 (0.9-1.1) APTT 31 (21-31) Seconds PTT Ratio 1.2 POC Sodium 129 L (135-144) mmol/L Sodium 129 L (136-145) mmol/L POC Potassium 3.7 (3.3-5.0) mmol/L Potassium 3.6 (3.5-5.1) mmol/L POC Chloride 92 L (101-112) mmol/L Chloride 93 L (98-107) mmol/L Carbon Dioxide 27 (21-32) mmol/L POC Total CO2 26 (24-31) mmol/L Anion Gap 9 (3-11) POC Anion Gap 15.0 L (16-25) mmol/L POC BUN 4 L (7-18) mg/dl BUN 6 (6-23) mg/dl Creatinine 0.36 L (0.6-1.2) mg/dl POC Creatinine 0.3 L (0.6-1.3) mg/dl Est Cr Clr Drug Dosing 107.4 ml/min eGFR 110.51 BUN/Creatinine Ratio 16.7 (10-20) Glucose 100 H (70-99(Fasting)) mg/dl POC Glucose (other) 101 H (70-99) mg/dl Lactate 1.2 (0.4-2.0) mmol/L Calcium 8.9 (8.6-10.3) mg/dl POC Ioniz Calcium Erendira 1.13 (1.12-1.32) mmol/l Magnesium 1.7 (1.7-2.4) mg/dl Total Bilirubin 0.4 (0.2-1.0) mg/dl AST 10 L (13-39) U/L ALT 5 L (7-52) U/L Alkaline Phosphatase 75 (34-104) U/L Total Creatine Kinase 37 (26-192) U/L Troponin I High Sens 6.6 (0-14) pg/ml Total Protein 7.8 (6.0-8.3) gm/dl Albumin 3.5 (3.4-5.0) gm/dl Globulin 4.3 H (2.5-4.0) gm/dl Albumin/Globulin Ratio 0.8 L (0.9-2) Urine Color Yellow Urine Appearance Cloudy A (Clear) Urine pH 8.0 H (4.5-7.5) Ur Specific [place] 1.029 (1.000-1.030) Urine Protein Trace H (Negative) Urine Glucose (UA) Negative (Negative) Urine Ketones Negative (Negative) Urine Blood Negative (Negative) Urine Nitrite Negative (Negative) Urine Bilirubin Negative (Negative) Urine Urobilinogen Negative (Negative) Ur Leukocyte Esterase 3+ H (Negative) Urine WBC (Auto) >50 H (0-5) /hpf Urine RBC (Auto) 6-10 H (0-2) /hpf U Hyaline Cast (Auto) 0-2 (0-2) /lpf U Epithel Cells (Auto) 6-10 H (0-2) /hpf Urine Bacteria (Auto) 1+ H (None Seen) SARS-CoV-2, RNA, NAAT (NEGATIVE) 03/06/24 03/07/24 Range/Units 22:23 00:23 WBC 7.54 (4.8-10.8) K/ul RBC 3.28 L (4.20-5.40) M/uL Hgb 7.9 L (12.0-16.0) g/dl POC Hgb (12.0-16.0) g/dl Hct 25.7 L (37.0-47.0) % POC Hct (37-47) % MCV 78.4 L (80.0-100.0) fL MCH 24.1 L (25.0-34.0) pg MCHC 30.7 L (32.0-36.0) g/dL RDW Std Deviation 46.5 H (36.4-46.3) fL RDW Coeff of Tera 16.3 H (11.5-14.5) % Plt Count 993 H (130-400) K/uL MPV 8.8 L (9.4-12.4) fL Immature Gran % (Auto) 0.3 % Neut % (Auto) 54.0 % Lymph % (Auto) 29.8 % [place] % (Auto) 13.8 % Eos % (Auto) 1.6 % Baso % (Auto) 0.5 % Neut # (Auto) 4.07 (1.40-6.50) K/uL Lymph # (Auto) 2.25 (1.20-3.40) K/uL [place] # (Auto) 1.04 H (0.11-0.59) K/uL Eos # (Auto) 0.12 (0.00-0.50) K/uL Baso # (Auto) 0.04 (0.00-0.20) K/uL Immature Gran # (Auto) 0.02 (0.01-0.20) K/uL Polychromasia 1+ PT (9.0-12.0) Seconds INR (0.9-1.1) APTT (21-31) Seconds PTT Ratio POC Sodium (135-144) mmol/L Sodium (136-145) mmol/L POC Potassium (3.3-5.0) mmol/L Potassium (3.5-5.1) mmol/L POC Chloride (101-112) mmol/L Chloride (98-107) mmol/L Carbon Dioxide (21-32) mmol/L POC Total CO2 (24-31) mmol/L Anion Gap (3-11) POC Anion Gap (16-25) mmol/L POC BUN (7-18) mg/dl BUN (6-23) mg/dl Creatinine (0.6-1.2) mg/dl POC Creatinine (0.6-1.3) mg/dl Est Cr Clr Drug Dosing ml/min eGFR BUN/Creatinine Ratio (10-20) Glucose (70-99(Fasting)) mg/dl POC Glucose (other) (70-99) mg/dl Lactate (0.4-2.0) mmol/L Calcium (8.6-10.3) mg/dl POC Ioniz Calcium Erendira (1.12-1.32) mmol/l Magnesium (1.7-2.4) mg/dl Total Bilirubin (0.2-1.0) mg/dl AST (13-39) U/L ALT (7-52) U/L Alkaline Phosphatase (34-104) U/L Total Creatine Kinase (26-192) U/L Troponin I High Sens (0-14) pg/ml Total Protein (6.0-8.3) gm/dl Albumin (3.4-5.0) gm/dl Globulin (2.5-4.0) gm/dl Albumin/Globulin Ratio (0.9-2) Urine Color Urine Appearance (Clear) Urine pH (4.5-7.5) Ur Specific [place] (1.000-1.030) Urine Protein (Negative) Urine Glucose (UA) (Negative) Urine Ketones (Negative) Urine Blood (Negative) Urine Nitrite (Negative) Urine Bilirubin (Negative) Urine Urobilinogen (Negative) Ur Leukocyte Esterase (Negative) Urine WBC (Auto) (0-5) /hpf Urine RBC (Auto) (0-2) /hpf U Hyaline Cast (Auto) (0-2) /lpf U Epithel Cells (Auto) (0-2) /hpf Urine Bacteria (Auto) (None Seen) SARS-CoV-2, RNA, NAAT NEGATIVE (NEGATIVE) Administered Medications Discontinued Medications Sodium Chloride (Nss) 500 mls @ 999 mls/hr IV .Q31M ONE Stop: 03/06/24 21:25 Last Infusion: 03/06/24 21:43 Dose: Infused Documented By: Admin: 03/06/24 21:08 Dose: 999 mls/hr Documented By: ROLANDO Levofloxacin/Dextrose (Levaquin/D5w) 750 mg in 150 mls @ 100 mls/hr IV NOW STA Stop: 03/07/24 00:56 Last Admin: 03/07/24 00:59 Dose: 100 mls/hr Documented By: JENA Ioversol (Optiray 320 100ml) 90 ml IV ONCE ONE Stop: 03/06/24 20:36 Last Admin: 03/06/24 20:36 Dose: 90 ml Documented By: ROLAND Imaging Data Radiologist's Impression: Lumbar Spine CT 03/06/24 19:06 Exam(s): CT L SPINE With Contrast IV Amt: 90 ml optiray 320 EXAM: CT Lumbar Spine With Intravenous Contrast CLINICAL HISTORY: Reason for exam: Trauma. TECHNIQUE: Axial computed tomography images of the lumbar spine with intravenous contrast. CTDI is 16 mGy and DLP is 717 mGy-cm. Automated exposure control was utilized for the study. A dose lowering technique was utilized adhering to the principles of ALARA. CONTRAST: Patient received 90 ml optiray 320 of IV contrast COMPARISON: None FINDINGS: Image quality is hampered by motion and metallic beam hardening artifacts. Vertebrae: Postsurgical spine/posterior interbody fusion instrumentation from T11-S1 with bilateral pedicle screws and interconnecting rods. Osteoporosis. Possible L4 and L5 vertebral fractures. Moderate dextroscoliosis. Exaggerated lumbar lordosis. There is diastasis mild/moderate widening of the right SI joint. Cannot exclude subtle fracture of the left sacral ala. Discs/spinal canal/neural foramina: Multilevel moderately advanced degenerative spondylosis. Soft tissues: Soft tissue edema/anasarca. Other findings: . Bilateral pleural effusions. IMPRESSION: Limited exam. Postsurgical thoracolumbosacral spine. Osteoporosis. Possible L4 and L5 vertebral fractures. Suspect subtle fracture of the left sacral ala. Moderate dextroscoliosis. Exaggerated lumbar lordosis. Multilevel moderately advanced degenerative spondylosis. Electronically signed by: Shanti Carrillo MD, DABR 03/07/24 00:10 AM Abdomen/Pelvis CT 03/06/24 19:07 Exam(s): CT ABDOMEN + PELVIS With Contrast IV Amt: 90 ml optiray 320 EXAM: CT Abdomen and Pelvis With Intravenous Contrast CLINICAL HISTORY: Reason for exam: Trauma. TECHNIQUE: Axial computed tomography images of the abdomen and pelvis with intravenous contrast. CTDI is 26.96 mGy and DLP is 691.25 mGy-cm. Automated exposure control was utilized for the study. A dose lowering technique was utilized adhering to the principles of ALARA. CONTRAST: Patient received 90 ml optiray 320 of IV contrast COMPARISON: None. FINDINGS: A large size electronic battery pack/metallic Device over the mid ventral abdominal wall. Patient's right upper left over the mid/lower abdomen. Diagnostic sensitivity of the exam is markedly hampered/reduced by motion and beam hardening artifacts. Lung bases: Concurrently performed CT chest is reported separately. ABDOMEN: Liver: Unremarkable. Mildly dilated intrahepatic bile ducts. Gallbladder and bile ducts: Unremarkable. No calcified stones. No ductal dilation. Pancreas: Unremarkable as visible.. Spleen: No splenomegaly. Adrenals: Unremarkable. No mass. Kidneys and ureters: No discernible solid mass. No hydronephrosis. Stomach and bowel: A moderately large size hiatal hernia. There is likely mucosal thickening of the fluid/gas filled normal caliber small bowel (series 1700 image 36). Gas/stool filled mild/moderately distended large bowel. There is irregularly lobulated abnormal appearing wall thickening of a moderately distended rectum, suspicious of malignancy (series 17 image 246, series 1700 image 45). PELVIS: Appendix: Not visualized. No obvious acute findings in the region. Bladder: Uniform mild bladder wall thickness. No mass. Reproductive: Likely a lobulated anteverted atrophic uterus present (series 1701, image 62). ABDOMEN and PELVIS: Intraperitoneal space: Unremarkable. No free air. No significant fluid collection. Bones/joints: Diffuse osseous demineralization. Postsurgical thoracolumbosacral spine with posterior fusion instrumentation. Multilevel degenerative spondylosis. Right proximal femur orthopedic instrumentation.. Hip osteoarthrosis. Soft tissues: Lower abdominal/pelvic wall edema/anasarca. Vasculature: Diffuse calcified atherosclerosis of the aortoiliac vasculature and branch vessels. No abdominal aortic aneurysm. Lymph nodes: No enlarged lymph nodes.. IMPRESSION: A markedly limited/nondiagnostic exam. A moderately large size hiatal hernia. Possibly mucosal thickening of fluid/gas filled normal caliber small bowel loops/enteritis. Clinical correlation advised Gas/stool filled mild/moderately distended large bowel loops. Irregular lobulations/abnormal wall thickening of a moderately distended rectum, suspicious of malignancy. Recommend follow-up. Additional findings as described above. Electronically signed by: Shanti Carrillo MD, DUSTIN 03/06/24 22:[address] 03/06/24 19:07 Exam(s): CT C SPINE EXAM: CT Cervical Spine Without Intravenous Contrast CLINICAL HISTORY: Reason for exam: Trauma. TECHNIQUE: Axial computed tomography images of the cervical spine without intravenous contrast. CTDI is 16.98 mGy and DLP is 717.98 mGy-cm. Automated exposure control was utilized for the study. A dose lowering technique was utilized adhering to the principles of ALARA. COMPARISON: CT cervical spine: 11/22/2023 FINDINGS: Vertebrae: C4 vertebral 3.5 mm of anterolisthesis. C7 vertebral 3 mm anterolisthesis. No acute fracture. Discs/spinal canal/neural foramina: Redemonstrates advanced multilevel degenerative disc/endplate and posterior elements spondylosis with variable degrees of neuroforaminal and central canal stenosis. Soft tissues: Unremarkable. Other findings: Pulmonary biapical pleural parenchymal scarring. . IMPRESSION: No significant abnormalities post trauma. . Electronically signed by: Shanti Carrillo MD, DUSTIN 03/06/24 21:[address] 03/06/24 19:07 Exam(s): CT CHEST With Contrast IV Amt: 90 ml optiray 320 EXAM: CT Chest With Intravenous Contrast CLINICAL HISTORY: Reason for exam: Trauma. TECHNIQUE: Axial computed tomography images of the chest with intravenous contrast. CTDI is 11 mGy and DLP is 311 mGy-cm. Automated exposure control was utilized for the study. A dose lowering technique was utilized adhering to the principles of ALARA. CONTRAST: Patient received 90 ml optiray 320 of IV contrast COMPARISON: CT chest: 11/22/2023 FINDINGS: Motion-induced image degradation limits anatomical details. Lungs: Central airways are patent. Bilateral diffuse bronchial wall thickening. Bilateral lower lung lobes posteriorly consolidation/atelectasis and surrounding interstitial opacities. Pleural space: Moderate volume bilateral pleural effusions RT>LT. No pneumothorax. Heart: Borderland/mild cardiomegaly. Thickly calcified mitral valve annulus. No significant pericardial effusion. No significant coronary artery calcifications. Bones/joints: Osteopenia. A T8 vertebral superior endplate mild/moderate chronic compression fracture . No acute fracture. No dislocation. Degenerative changes of the spine. Increased thoracic kyphosis. Postsurgical thoracolumbar spine. A nondisplaced old fracture of the right third rib posteriorly. Soft tissues: Unremarkable. Vasculature: Unremarkable. No thoracic aortic aneurysm. Lymph nodes: Multiple calcified left hilar lymph nodes in the left lower lung lobe calcified nodules/granulomas. No lymphadenopathy by CT size criteria... IMPRESSION: Moderate volume bilateral new pleural effusions with overlying consolidation/atelectasis and corresponding interstitial infiltrates RT>LT Mild cardiomegaly. A nondisplaced old fracture of the right third rib posteriorly. A T8 vertebral superior endplate mild/moderate chronic compression/fracture seen similar to the prior exam. Electronically signed by: Shanti Carrillo MD, DABR 03/06/24 23:[address] 03/06/24 19:07 Exam(s): CT FACIAL Without Contrast EXAM: CT Maxillofacial Without Intravenous Contrast CLINICAL HISTORY: Reason for exam: Trauma. TECHNIQUE: Axial computed tomography images of the face without intravenous contrast. CTDI is 26.96 mGy and DLP is 291.25 mGy-cm. Automated exposure control was utilized for the study. A dose lowering technique was utilized adhering to the principles of ALARA. COMPARISON: None. FINDINGS: Motion-induced image degradation. Bones/joints: There is a right nasal bone fracture with angulation. No other acute facial bone fracture seen. Bilateral TMJ osteoarthritis. Soft tissues: Unremarkable. Orbits: Unremarkable. Sinuses: Unremarkable. No air-fluid levels.. IMPRESSION: Right nasal bone fracture. Otherwise no significant abnormalities post trauma. . Electronically signed by: Shanti Carrillo MD, DUSTIN 03/06/24 23:[address] 03/06/24 19:07 Exam(s): CT HEAD Without Contrast EXAM: CT Head Without Intravenous Contrast CLINICAL HISTORY: Reason for exam: trauma. TECHNIQUE: Axial computed tomography images of the head/brain without intravenous contrast. CTDI is 65.68 mGy and DLP is 1098.96 mGy-cm. Automated exposure control was utilized for the study. A dose lowering technique was utilized adhering to the principles of ALARA. COMPARISON: CT brain: 11/22/2023 FINDINGS: Extensive motion/beam hardening artifact limits the sensitivity of the exam. Brain: Redemonstrates a large size encephalomalacia involving left chávez radiata with exvacuo-dilatation of the left lateral ventricle/ventriculomegaly. No acute intracranial hemorrhage or midline shift of structures. No abnormal extra-axial fluid collections. Moderate cerebral atrophy with widening of the extra-axial spaces. Basilar cisterns are patent.. Bones/joints: Unremarkable. No acute fracture. Soft tissues: Unremarkable. Sinuses: No acute sinusitis. Mastoid air cells: Unremarkable as visualized. No mastoid effusion.. IMPRESSION: No conclusive evidence of acute intracranial abnormality. . Electronically signed by: Shanti Carrillo MD, DUSTIN 03/06/24 22:[address] 03/06/24 19:07 Exam(s): CT T SPINE IV Amt: 90 ml optiray 320 EXAM: CT Thoracic Spine With Intravenous Contrast CLINICAL HISTORY: Reason for exam: trauma. TECHNIQUE: Axial computed tomography images of the thoracic spine with intravenous contrast. CTDI is 16.98 mGy and DLP is 717 mGy-cm. Automated exposure control was utilized for the study. A dose lowering technique was utilized adhering to the principles of ALARA. CONTRAST: Patient received 90 ml optiray 320 of IV contrast COMPARISON: None. FINDINGS: Diagnostic sensitivity of the exam is reduced by motion artifact. Vertebrae: Diffuse osseous demineralization. T8 vertebral superior endplate anterior wedge compression of indeterminant age (series 1801, image 33).. Otherwise no thoracic vertebral acute fracture is seen. No segmental malalignment. Increased thoracic kyphosis. Posteriorly nondisplaced nonunited fracture of the right second rib (series 302 image 13). Discs/spinal canal/neural foramina: No acute findings. No spinal canal stenosis. Soft tissues: Unremarkable. Other findings: Demonstrates moderate volume bilateral pleural effusions with overlying consolidation/atelectasis and surrounding infiltrates in the lower lobes. Cardiomegaly. Multiple calcified left hilar lymph nodes and left lower lobe calcified nodules/granulomas. IMPRESSION: Suboptimally evaluated due to motion artifact. A T8 vertebral superior endplate anterior wedge compression/fracture of indeterminant age. Otherwise no significant abnormalities post trauma. . Electronically signed by: Shanti Carrillo MD, DABR 03/06/24 22:48 PM Tibia/Fibula X-Ray 03/06/24 19:08 Exam(s): XR RIGHT TIB/FIB, 2 views EXAM: XR Right Tibia and Fibula, 2 Views CLINICAL HISTORY: Reason for exam: Trauma. TECHNIQUE: Frontal and lateral views of the right tibia and fibula. COMPARISON: None. FINDINGS: Bones/joints: Diffuse osseous demineralization. Intramedullary anaid/nail fixation of the visualized right femur. There is a minimally displaced intra-articular fracture of the lateral corner of the tibial plateau. Laterally mild soft tissue swelling of the right knee. Tricompartmental moderate right knee osteoarthrosis. Suspect laterally a subtle nondisplaced cortical fracture of the lateral malleolus. No dislocation. Soft tissues: Soft tissue swelling of the ankle more laterally. No radiopaque foreign body.. IMPRESSION: Osteopenia. A mildly displaced intra-articular fracture of the lateral corner of the right proximal tibia. Likely a subtle nondisplaced cortical fracture laterally of the lateral malleolus. Periarticular soft tissue swelling more laterally. Tricompartmental right knee osteoarthrosis. . Electronically signed by: Shanti Carrillo MD, DABR 03/06/24 23:56 PM Discharge Plan Visit Data Chief Complaint: Fall Stated Complaint: FALL ED Provider: Juana Rodriguez ED Midlevel Provider: Christa Yao Discharge Problem: Fall, Acute UTI, Pneumonia, Thrombocytosis, Fracture of proximal end of tibia, Lateral malleolar fracture, Closed fracture nasal bone Patient Disposition: Admitted As Inpatient Condition: Good Forms Stand Alone Forms: My [employer] Prescriptions Prescriptions: No Action baclofen 10 mg tablet 10 mg PO DAILY PRN (Reason: spasms) Qty: 90 3RF Rx Instructions: last filled 11/27/22 clopidogrel 75 mg tablet 75 mg PO HS Qty: 90 3RF celecoxib 200 mg capsule 200 mg PO QAM Qty: 90 3RF duloxetine [Cymbalta] 30 mg capsule,delayed release(DR/EC) 30 mg PO DAILY Qty: 30 5RF docusate sodium 100 mg capsule 100 mg PO BID lidocaine [Aspercreme (lidocaine)] 4 % adhesive patch,medicated 1 patch topical DAILY Rx Instructions: Apply to right shoulder topically in the morning cholecalciferol (vitamin D3) 25 mcg (1,000 unit) capsule 25 mcg PO DAILY enoxaparin [Lovenox] 30 mg/0.3 mL syringe 30 mg subcut BID ondansetron HCl 4 mg tablet 4 mg PO Q4H PRN sennosides [Senokot] 8.6 mg tablet 17.2 mg PO BID sodium chloride 1 g 2 g PO BID (DME) Wheelchair (Manual) Device See Rx Instructions .Route Qty: 1 0RF Rx Instructions: length of need 99 months potassium chloride 10 mEq capsule, extended release 10 meq PO DAILY Rx Instructions: filled 03/25/23 90 day supply baclofen 40,000 mcg/20mL (2,000 mcg/mL) Solution 0 mcg continuous intrathecal infusion UD atorvastatin 10 mg tablet 10 mg PO 3XWK Rx Instructions: MON, WED, & FRI Referrals Referrals: Aaron Bowers MD [Primary Care Provider] - Discharge Problem: Fall Qualifiers: Encounter type: initial encounter Qualified Code(s): W19.XXXA - Unspecified fall, initial encounter Pneumonia Qualifiers: Pneumonia type: due to unspecified organism Laterality: unspecified laterality Lung location: unspecified part of lung Qualified Code(s): J18.9 - Pneumonia, unspecified organism Fracture of proximal end of tibia Qualifiers: Encounter type: initial encounter Fracture type: closed Fracture morphology: u nspecified fracture morphology Laterality: right Qualified Code(s): S82.101A - Unspecified fracture of upper end of right tibia, initial encounter for closed fracture Lateral malleolar fracture Qualifiers: Encounter type: initial encounter Fracture type: closed Fracture alignment: d isplaced Laterality: right Qualified Code(s): S82.61XA - Displaced fracture of lateral malleolus of right fibula, initial encounter for closed fracture Closed fracture nasal bone Qualifiers: Encounter type: initial encounter Qualified Code(s): S02.2XXA - Fracture of nasal bones, initial encounter for closed fracture
[2024-03-06 19:53] LABS: iSTAT Creatinine 0.3 mg/dl (0.6-1.3); iSTAT Hemoglobin 9.9 g/dl (12.0-16.0); iSTAT Ionized Calcium 1.13 mmol/l (1.12-1.32); iSTAT Potassium 3.7 mmol/L (3.3-5.0)
[2024-03-06 20:10] LABS: Hematocrit (blood only) 28.1 % (37.0-47.0); Hemoglobin 8.6 g/dl (12.0-16.0); Mean Corpuscular Hemoglobin 23.5 pg (25.0-34.0); Mean Corpuscular Hgb Conc 30.6 g/dL (32.0-36.0); Mean Corpuscular Volume 76.8 fL (80.0-100.0); Mean Platelet Volume 8.6 fL (9.4-12.4); Platelet Count 1038 K/uL (130-400); RDW Coefficient of Variation 16.4 % (11.5-14.5); Red Blood Count 3.66 M/uL (4.20-5.40); White Blood Count 9.53 K/ul (4.8-10.8)
[2024-03-06 20:11] LABS: Albumin Globulin Ratio 0.8 (0.9-2); Albumin Level 3.5 gm/dl (3.4-5.0); BUN Creatinine Ratio 16.7 (10-20); Basophils # (auto) 0.03 K/uL (0.00-0.20); Basophils % (auto) 0.3 %; Bilirubin,Total 0.4 mg/dl (0.2-1.0); Calcium 8.9 mg/dl (8.6-10.3); Creatinine Clr Calc Pharmacy 107.4 ml/min; Eosinophils # (auto) 0.05 K/uL (0.00-0.50); Eosinophils % (auto) 0.5 %; Globulin 4.3 gm/dl (2.5-4.0); Immature Granulocytes # (auto) 0.03 K/uL (0.01-0.20); Immature Granulocytes % (auto) 0.3 %; Lymphocytes # (auto) 1.97 K/uL (1.20-3.40); Lymphocytes % (auto) 20.7 %; Magnesium 1.7 mg/dl (1.7-2.4); Monocytes # (auto) 1.07 K/uL (0.11-0.59); Monocytes % (auto) 11.2 %; Neutrophils # (auto) 6.38 K/uL (1.40-6.50); Potassium 3.6 mmol/L (3.5-5.1); Total Protein 7.8 gm/dl (6.0-8.3)
[2024-03-06 20:18] LABS: Troponin I High Sensitivity 6.6 pg/ml (0-14)
[2024-03-06 20:21] LABS: INR 1.1 (0.9-1.1); Partial Thromboplastin Ratio 1.2; Partial Thromboplastin Time 31 Seconds (21-31); Prothrombin Time 11.4 Seconds (9.0-12.0)
[2024-03-06] MEDS: OPTIRAY 320 100ml IV ONE (20:36)
--- NOTE | 2024-03-06 20:58 | Emergency Department Note ---
ED Visit Note I was consulted by the Advanced Practice Provider, Christa Yao PA-C. I performed a substantive portion of the visit. This includes aspects of: History: Patient is a 68-year-old female presenting after being found down at [facility]. Patient reportedly had an unwitnessed fall from standing and was found between the toilet and the wall at the facility. The material handler 1st shift was able to get the patient into bed but she seemed to have some markings on the right side of her face and were concerned that she did not seem like her normal self so they sent her to the ER. MDM: - Laboratory workup interpreted by myself showe normal WBC; anemia (Hgb 8.6); thrombocytosis (plt 1038); normal PT/INR; hyponatremia (Na 129); normal troponin; normal CK - UA showed evidence of infection - CT head wo contrast negative for acute pathology - CT cervical spine negative for acute injury - CT face showed right nasal bone fracture - CT chest with IV contrast bilateral new pleural effusions with overlying consolidation with corresponding interstitial infiltrates. Noted to have a nondisplaced old fracture of the right third rib. Also noted to have an age- indeterminate T8 vertebral superior endplate compression fracture. - CT abdomen/pelvis with IV contrast showed an irregular wall thickening of the rectum concerning for malignancy. - Ptient given 500 cc NS in ER. Given IV levaquin for pneumonia and UTI treatment - Patient will be admitted to inpatient hospital service for further evaluation and management. .
[2024-03-06] MEDS: SODIUM CHLORIDE 0.9% 500 ML IV ONE (21:08)
--- NOTE | 2024-03-06 21:49 | CT Scan Report ---
Exam(s): CT C SPINE EXAM: CT Cervical Spine Without Intravenous Contrast CLINICAL HISTORY: Reason for exam: Trauma. TECHNIQUE: Axial computed tomography images of the cervical spine without intravenous contrast. CTDI is 16.98 mGy and DLP is 717.98 mGy-cm. Automated exposure control was utilized for the study. A dose lowering technique was utilized adhering to the principles of ALARA. COMPARISON: CT cervical spine: 11/22/2023 FINDINGS: Vertebrae: C4 vertebral 3.5 mm of anterolisthesis. C7 vertebral 3 mm anterolisthesis. No acute fracture. Discs/spinal canal/neural foramina: Redemonstrates advanced multilevel degenerative disc/endplate and posterior elements spondylosis with variable degrees of neuroforaminal and central canal stenosis. Soft tissues: Unremarkable. Other findings: Pulmonary biapical pleural parenchymal scarring. . IMPRESSION: No significant abnormalities post trauma. . Electronically signed by: Shanti Carrillo MD, ANAR 03/06/24 21:48 PM
[2024-03-06 22:03] LABS: Appearance Urine Cloudy (Clear); Bacteria Urine Automated 1+ (None Seen); Bilirubin Urine Negative (Negative); Blood Urine Negative (Negative); Cast Urine Automated 0-2 /lpf (0-2); Color Urine Yellow; Glucose Urine UA Negative (Negative); Ketones Urine Negative (Negative); Leukocyte Esterase Urine 3+ (Negative); Nitrite Urine Negative (Negative); Protein Urine Trace (Negative); Specific Gravity Urine 1.029 (1.000-1.030); Urobilinogen Urine Negative (Negative); WBC Urine Automated >50 /hpf (0-5)
--- NOTE | 2024-03-06 22:11 | CT Scan Report ---
Exam(s): CT HEAD Without Contrast EXAM: CT Head Without Intravenous Contrast CLINICAL HISTORY: Reason for exam: trauma. TECHNIQUE: Axial computed tomography images of the head/brain without intravenous contrast. CTDI is 65.68 mGy and DLP is 1098.96 mGy-cm. Automated exposure control was utilized for the study. A dose lowering technique was utilized adhering to the principles of ALARA. COMPARISON: CT brain: 11/22/2023 FINDINGS: Extensive motion/beam hardening artifact limits the sensitivity of the exam. Brain: Redemonstrates a large size encephalomalacia involving left chávez radiata with exvacuo-dilatation of the left lateral ventricle/ventriculomegaly. No acute intracranial hemorrhage or midline shift of structures. No abnormal extra-axial fluid collections. Moderate cerebral atrophy with widening of the extra-axial spaces. Basilar cisterns are patent.. Bones/joints: Unremarkable. No acute fracture. Soft tissues: Unremarkable. Sinuses: No acute sinusitis. Mastoid air cells: Unremarkable as visualized. No mastoid effusion.. IMPRESSION: No conclusive evidence of acute intracranial abnormality. . Electronically signed by: Shanti Carrillo MD, DABR 03/06/24 22:10 PM
--- NOTE | 2024-03-06 22:37 | CT Scan Report ---
Exam(s): CT ABDOMEN + PELVIS With Contrast IV Amt: 90 ml optiray 320 EXAM: CT Abdomen and Pelvis With Intravenous Contrast CLINICAL HISTORY: Reason for exam: Trauma. TECHNIQUE: Axial computed tomography images of the abdomen and pelvis with intravenous contrast. CTDI is 26.96 mGy and DLP is 691.25 mGy-cm. Automated exposure control was utilized for the study. A dose lowering technique was utilized adhering to the principles of ALARA. CONTRAST: Patient received 90 ml optiray 320 of IV contrast COMPARISON: None. FINDINGS: A large size electronic battery pack/metallic Device over the mid ventral abdominal wall. Patient's right upper left over the mid/lower abdomen. Diagnostic sensitivity of the exam is markedly hampered/reduced by motion and beam hardening artifacts. Lung bases: Concurrently performed CT chest is reported separately. ABDOMEN: Liver: Unremarkable. Mildly dilated intrahepatic bile ducts. Gallbladder and bile ducts: Unremarkable. No calcified stones. No ductal dilation. Pancreas: Unremarkable as visible.. Spleen: No splenomegaly. Adrenals: Unremarkable. No mass. Kidneys and ureters: No discernible solid mass. No hydronephrosis. Stomach and bowel: A moderately large size hiatal hernia. There is likely mucosal thickening of the fluid/gas filled normal caliber small bowel (series 1700 image 36). Gas/stool filled mild/moderately distended large bowel. There is irregularly lobulated abnormal appearing wall thickening of a moderately distended rectum, suspicious of malignancy (series 17 image 246, series 1700 image 45). PELVIS: Appendix: Not visualized. No obvious acute findings in the region. Bladder: Uniform mild bladder wall thickness. No mass. Reproductive: Likely a lobulated anteverted atrophic uterus present (series 1701, image 62). ABDOMEN and PELVIS: Intraperitoneal space: Unremarkable. No free air. No significant fluid collection. Bones/joints: Diffuse osseous demineralization. Postsurgical thoracolumbosacral spine with posterior fusion instrumentation. Multilevel degenerative spondylosis. Right proximal femur orthopedic instrumentation.. Hip osteoarthrosis. Soft tissues: Lower abdominal/pelvic wall edema/anasarca. Vasculature: Diffuse calcified atherosclerosis of the aortoiliac vasculature and branch vessels. No abdominal aortic aneurysm. Lymph nodes: No enlarged lymph nodes.. IMPRESSION: A markedly limited/nondiagnostic exam. A moderately large size hiatal hernia. Possibly mucosal thickening of fluid/gas filled normal caliber small bowel loops/enteritis. Clinical correlation advised Gas/stool filled mild/moderately distended large bowel loops. Irregular lobulations/abnormal wall thickening of a moderately distended rectum, suspicious of malignancy. Recommend follow-up. Additional findings as described above. Electronically signed by: Shanti Carrillo MD, DUSTIN 03/06/24 22:37 PM
--- NOTE | 2024-03-06 22:49 | CT Scan Report ---
Exam(s): CT T SPINE IV Amt: 90 ml optiray 320 EXAM: CT Thoracic Spine With Intravenous Contrast CLINICAL HISTORY: Reason for exam: trauma. TECHNIQUE: Axial computed tomography images of the thoracic spine with intravenous contrast. CTDI is 16.98 mGy and DLP is 717 mGy-cm. Automated exposure control was utilized for the study. A dose lowering technique was utilized adhering to the principles of ALARA. CONTRAST: Patient received 90 ml optiray 320 of IV contrast COMPARISON: None. FINDINGS: Diagnostic sensitivity of the exam is reduced by motion artifact. Vertebrae: Diffuse osseous demineralization. T8 vertebral superior endplate anterior wedge compression of indeterminant age (series 1801, image 33).. Otherwise no thoracic vertebral acute fracture is seen. No segmental malalignment. Increased thoracic kyphosis. Posteriorly nondisplaced nonunited fracture of the right second rib (series 302 image 13). Discs/spinal canal/neural foramina: No acute findings. No spinal canal stenosis. Soft tissues: Unremarkable. Other findings: Demonstrates moderate volume bilateral pleural effusions with overlying consolidation/atelectasis and surrounding infiltrates in the lower lobes. Cardiomegaly. Multiple calcified left hilar lymph nodes and left lower lobe calcified nodules/granulomas. IMPRESSION: Suboptimally evaluated due to motion artifact. A T8 vertebral superior endplate anterior wedge compression/fracture of indeterminant age. Otherwise no significant abnormalities post trauma. . Electronically signed by: Shanti Carrillo MD, DABR 03/06/24 22:48 PM
--- NOTE | 2024-03-06 23:12 | CT Scan Report ---
Exam(s): CT CHEST With Contrast IV Amt: 90 ml optiray 320 EXAM: CT Chest With Intravenous Contrast CLINICAL HISTORY: Reason for exam: Trauma. TECHNIQUE: Axial computed tomography images of the chest with intravenous contrast. CTDI is 11 mGy and DLP is 311 mGy-cm. Automated exposure control was utilized for the study. A dose lowering technique was utilized adhering to the principles of ALARA. CONTRAST: Patient received 90 ml optiray 320 of IV contrast COMPARISON: CT chest: 11/22/2023 FINDINGS: Motion-induced image degradation limits anatomical details. Lungs: Central airways are patent. Bilateral diffuse bronchial wall thickening. Bilateral lower lung lobes posteriorly consolidation/atelectasis and surrounding interstitial opacities. Pleural space: Moderate volume bilateral pleural effusions RT>LT. No pneumothorax. Heart: Borderland/mild cardiomegaly. Thickly calcified mitral valve annulus. No significant pericardial effusion. No significant coronary artery calcifications. Bones/joints: Osteopenia. A T8 vertebral superior endplate mild/moderate chronic compression fracture . No acute fracture. No dislocation. Degenerative changes of the spine. Increased thoracic kyphosis. Postsurgical thoracolumbar spine. A nondisplaced old fracture of the right third rib posteriorly. Soft tissues: Unremarkable. Vasculature: Unremarkable. No thoracic aortic aneurysm. Lymph nodes: Multiple calcified left hilar lymph nodes in the left lower lung lobe calcified nodules/granulomas. No lymphadenopathy by CT size criteria... IMPRESSION: Moderate volume bilateral new pleural effusions with overlying consolidation/atelectasis and corresponding interstitial infiltrates RT>LT Mild cardiomegaly. A nondisplaced old fracture of the right third rib posteriorly. A T8 vertebral superior endplate mild/moderate chronic compression/fracture seen similar to the prior exam. Electronically signed by: Shanti Carrillo MD, ANAR 03/06/24 23:11 PM
--- NOTE | 2024-03-06 23:23 | CT Scan Report ---
Exam(s): CT FACIAL Without Contrast EXAM: CT Maxillofacial Without Intravenous Contrast CLINICAL HISTORY: Reason for exam: Trauma. TECHNIQUE: Axial computed tomography images of the face without intravenous contrast. CTDI is 26.96 mGy and DLP is 291.25 mGy-cm. Automated exposure control was utilized for the study. A dose lowering technique was utilized adhering to the principles of ALARA. COMPARISON: None. FINDINGS: Motion-induced image degradation. Bones/joints: There is a right nasal bone fracture with angulation. No other acute facial bone fracture seen. Bilateral TMJ osteoarthritis. Soft tissues: Unremarkable. Orbits: Unremarkable. Sinuses: Unremarkable. No air-fluid levels.. IMPRESSION: Right nasal bone fracture. Otherwise no significant abnormalities post trauma. . Electronically signed by: Shanti Carrillo MD, ANAR 03/06/24 23:22 PM
--- NOTE | 2024-03-06 23:57 | XRay Report ---
Exam(s): XR RIGHT TIB/FIB, 2 views EXAM: XR Right Tibia and Fibula, 2 Views CLINICAL HISTORY: Reason for exam: Trauma. TECHNIQUE: Frontal and lateral views of the right tibia and fibula. COMPARISON: None. FINDINGS: Bones/joints: Diffuse osseous demineralization. Intramedullary anaid/nail fixation of the visualized right femur. There is a minimally displaced intra-articular fracture of the lateral corner of the tibial plateau. Laterally mild soft tissue swelling of the right knee. Tricompartmental moderate right knee osteoarthrosis. Suspect laterally a subtle nondisplaced cortical fracture of the lateral malleolus. No dislocation. Soft tissues: Soft tissue swelling of the ankle more laterally. No radiopaque foreign body.. IMPRESSION: Osteopenia. A mildly displaced intra-articular fracture of the lateral corner of the right proximal tibia. Likely a subtle nondisplaced cortical fracture laterally of the lateral malleolus. Periarticular soft tissue swelling more laterally. Tricompartmental right knee osteoarthrosis. . Electronically signed by: Shanti Carrillo MD, ANAR 03/06/24 23:56 PM
--- NOTE | 2024-03-07 00:10 | CT Scan Report ---
Exam(s): CT L SPINE With Contrast IV Amt: 90 ml optiray 320 EXAM: CT Lumbar Spine With Intravenous Contrast CLINICAL HISTORY: Reason for exam: Trauma. TECHNIQUE: Axial computed tomography images of the lumbar spine with intravenous contrast. CTDI is 16 mGy and DLP is 717 mGy-cm. Automated exposure control was utilized for the study. A dose lowering technique was utilized adhering to the principles of ALARA. CONTRAST: Patient received 90 ml optiray 320 of IV contrast COMPARISON: None FINDINGS: Image quality is hampered by motion and metallic beam hardening artifacts. Vertebrae: Postsurgical spine/posterior interbody fusion instrumentation from T11-S1 with bilateral pedicle screws and interconnecting rods. Osteoporosis. Possible L4 and L5 vertebral fractures. Moderate dextroscoliosis. Exaggerated lumbar lordosis. There is diastasis mild/moderate widening of the right SI joint. Cannot exclude subtle fracture of the left sacral ala. Discs/spinal canal/neural foramina: Multilevel moderately advanced degenerative spondylosis. Soft tissues: Soft tissue edema/anasarca. Other findings: . Bilateral pleural effusions. IMPRESSION: Limited exam. Postsurgical thoracolumbosacral spine. Osteoporosis. Possible L4 and L5 vertebral fractures. Suspect subtle fracture of the left sacral ala. Moderate dextroscoliosis. Exaggerated lumbar lordosis. Multilevel moderately advanced degenerative spondylosis. Electronically signed by: Shanti Carrillo MD, DABR 03/07/24 00:10 AM
[2024-03-07 00:50] LABS: Basophils # (auto) 0.04 K/uL (0.00-0.20); Basophils % (auto) 0.5 %; Eosinophils # (auto) 0.12 K/uL (0.00-0.50); Eosinophils % (auto) 1.6 %; Hematocrit (blood only) 25.7 % (37.0-47.0); Hemoglobin 7.9 g/dl (12.0-16.0); Immature Granulocytes # (auto) 0.02 K/uL (0.01-0.20); Immature Granulocytes % (auto) 0.3 %; Lymphocytes # (auto) 2.25 K/uL (1.20-3.40); Lymphocytes % (auto) 29.8 %; Mean Corpuscular Hemoglobin 24.1 pg (25.0-34.0); Mean Corpuscular Hgb Conc 30.7 g/dL (32.0-36.0); Mean Corpuscular Volume 78.4 fL (80.0-100.0); Mean Platelet Volume 8.8 fL (9.4-12.4); Monocytes # (auto) 1.04 K/uL (0.11-0.59); Monocytes % (auto) 13.8 %; Neutrophils # (auto) 4.07 K/uL (1.40-6.50); Platelet Count 993 K/uL (130-400); RDW Coefficient of Variation 16.3 % (11.5-14.5); RDW Standard Deviation 46.5 fL (36.4-46.3); Red Blood Count 3.28 M/uL (4.20-5.40); White Blood Count 7.54 K/ul (4.8-10.8)
[2024-03-07] MEDS: levoFLOXacin/D5W 750 MG/150 ML BAG IV STA (00:59)
[2024-03-07 01:07] LABS: Polychromasia 1+
[2024-03-07] MEDS ORDERED: VANCOMYCIN CONSULT ACTIVE PRN (01:22)
--- NOTE | 2024-03-07 01:39 | History & Physical Report ---
Date of Service March 07, 2024 Assessment & Plan (1) Parapneumonic effusion: (2) Acute UTI: (3) Lateral malleolar fracture: (4) Fracture of proximal end of tibia: (5) Thrombocytosis: (6) Frequent falls: Plan The patient is a 68-year-old female with a past medical history including traumatic brain injury with delayed recovery, fractured scapula, multiple fractures of right sided ribs, frequent falls, generalized weakness, malnutrition, seizure history, hyponatremia, aphasia due to disease, executive function deficit, lumbar postlaminectomy syndrome and urinary incontinence. She is referred to the emergency department after being found between the toilet and wall facility for an unknown length of time after an unwitnessed fall. Staff became concerned because the patient had a simin on the right side of her face, and that she seemed more confused than her baseline. #Parapneumonic effusions bilaterally- May be an element of aspiration Placed on vancomycin IV and meropenem IV DuoNebs every 2 hours as needed Nasal cannula oxygen, titrate to keep pulse ox around 94% #Urinary tract infection- Follow urine culture and sensitivity Antibiotics as above #Right proximal tibial and lateral malleolar fracture- Read as possibly acute by radiology overnight Last daytime radiology to read and verify Patient has been placed on an immobilizer in the ED Consult orthopedic surgery #Multiple vertebral fractures, with unclear timeframe Patient has had significant trauma admission at [facility] in [place] in December this year Fractures at T8, L4 and L5 have been referred to but, appears to be more chronic than acute Consult orthopedic spine surgery patient Presently on a baclofen pump, Which has been recently refilled by pain management service, and reportedly is filled until sometime in March #Thrombocytosis/progressive anemia- Platelets have been 298 at baseline, but on admission were 1038 Hemoglobin has increased decreased gradually from 15.3-11 0.2-8 0.6-7.9 today Question development of a possible myelodysplastic syndrome, or other process Consult hematology oncology CT scan notes Possible enteritis, possible large bowel loops and question of possible malignancy with anasarca Patient has no symptoms in reference to these findings #Long-term disposition, patient has been seen by palliative care in the outpatient setting Depending upon above, patient may need palliative consult CODE STATUS: DNR/DNI History of Present Illness Chief Complaint: The patient was referred to the emergency department by staff at [facility], after she was found between the toilet and the wall at the facility for an unknown length of time after an unwitnessed fall. Staff was concerned because the patient had a simin on her right side of her face, and that she seemed more confused than her baseline. Primary Care Provider: Aaron Bowers MD The patient is a 68-year-old female with a past medical history including traumatic brain injury with delayed recovery, fractured scapula, multiple fractures of right sided ribs, frequent falls, generalized weakness, malnutrition, seizure history, hyponatremia, aphasia due to disease, executive function deficit, lumbar postlaminectomy syndrome, and urinary incontinence. The patient underwent went a significant workup at [facility] in [place] where she had been treated for several traumas. She continued to issues with executive functioning, has been seen by palliative care, and presently living at [facility]. The patient is not able to contribute with any significance to her HPI or review of systems Allergies Allergy/AdvReac Type Severity Reaction Status Date / Time cephalexin Allergy Severe Anaphylaxis Verified 02/25/24 10:29 Penicillins AdvReac Mild nausea Verified 02/25/24 10:29 Home Medications Medication Instructions Recorded Confirmed Type baclofen 40,000 mcg/20 mL (2,000 0 mcg continuous intrathecal 08/04/21 02/25/24 History mcg/mL) intrathecal solution infusion UD baclofen 10 mg tablet 10 mg PO DAILY PRN spasms #90 tabs 12/01/22 02/25/24 Rx celecoxib 200 mg capsule 200 mg PO QAM #90 caps 03/20/23 02/25/24 Rx clopidogrel 75 mg tablet 75 mg PO HS #90 tabs 03/20/23 02/25/24 Rx potassium chloride 10 mEq 10 meq PO DAILY 06/15/23 02/25/24 History capsule,extended release atorvastatin 10 mg tablet 10 mg PO 3XWK 09/28/23 02/25/24 History duloxetine 30 mg capsule,delayed 30 mg PO DAILY #30 caps 11/12/23 02/25/24 Rx release (Cymbalta) cholecalciferol (vitamin D3) 25 25 mcg PO DAILY 02/18/24 02/25/24 History mcg (1,000 unit) capsule docusate sodium 100 mg capsule 100 mg PO BID 02/18/24 02/25/24 History enoxaparin 30 mg/0.3 mL 30 mg subcut BID 02/18/24 02/25/24 History subcutaneous syringe (Lovenox) lidocaine 4 % topical patch 1 patch topical DAILY 02/18/24 02/25/24 History (Aspercreme (lidocaine)) ondansetron HCl 4 mg tablet 4 mg PO Q4H PRN 02/18/24 02/25/24 History sennosides 8.6 mg tablet (Senokot) 17.2 mg PO BID 02/18/24 02/25/24 History sodium chloride 2 g PO BID 02/18/24 02/25/24 History Wheelchair (Manual) #1 ea 02/25/24 02/25/24 Rx Past Med/Surg History Problem List (Updated 03/07/24 @ 05:01 by Lupillo Trinh MD) Parapneumonic effusion Closed fracture nasal bone (Acute) Lateral malleolar fracture (Acute) Fracture of proximal end of tibia (Acute) Thrombocytosis (Acute) Pneumonia (Acute) Acute UTI (Acute) Fall (Acute) Traumatic brain injury with delayed recovery Fracture of scapula (Acute ~11/22/23) Multiple fractures of ribs, right side, initial encounter for closed fracture (Acute ~11/22/23) nondisplaced lateral second rib fracture and mildly displaced fourth through sixth rib fractures. Focal bandlike sclerosis is suspicious for a subtle nondisplaced fracture involving the right seventh rib. Similar posterior fractures on the right at the fourth through seventh right ribs. No displaced left rib fracture Multiple fractures of ribs of right side (Acute 11/22/23) In addition to the mildly displaced lateral right third and sixth rib fractures noted previously, there is now nondisplaced lateral second rib fracture and mildly displaced fourth through sixth rib fractures. Focal bandlike sclerosis is suspicious for a subtle nondisplaced fracture involving the right seventh rib. Similar posterior fractures on the right at the fourth through seventh right ribs. No displaced left rib fracture from a fall Closed fracture of one rib (Acute ~11/06/23) acute fracture of the right sixth rib laterally Frequent falls Transient alteration of awareness Weakness Neurogenic bladder Incontinence Multiple falls (Acute) Weakness (Acute) Malnutrition compromising bodily function Seizure Superficial thrombophlebitis of arm Hyponatremia Lumbar pain Weight loss Aphasia due to disease due to b12 deficiency Hypokalemia Fall (on) (from) other stairs and steps, initial encounter Osteoarthritis Encounter for routine gynecological examination Executive function deficit Sacroiliac inflammation Carpal tunnel syndrome (Chronic) Neck pain (Acute) Lumbar postlaminectomy syndrome (Chronic) History of lumbar fusion (Chronic) X 2 Change in bowel habits Medical History (Updated 03/07/24 @ 05:01 by Lupillo Trinh MD) Headache, post-traumatic, acute Vascular dementia B12 deficiency expressive aphasia Aphasia, post-stroke Hemiparesis affecting right side as late effect of cerebrovascular accident Aphasia as late effect of cerebrovascular accident History of cerebrovascular accident from left carotid artery occlusion involving left middle cerebral artery territory Hemiplegia Right side > wears AFO brace on RLE, no control of right arm History of CVA (cerebrovascular accident) 1998 large left MCA territory in setting of occluded left carotid potentially related to oral contraception at that time > chronic spastic right hemiparesis, flaccid upper limb and mild to moderate expressive aphasia > on plavix > follows with [facility] neuro Fall External constriction of left ring finger, initial encounter Sciatica Osteoporosis with fracture Hyperplastic colon polyp Ring or other jewelry causing external constriction, initial encounter Fall Closed femur fracture Memory loss Left carotid artery occlusion Vasovagal syncope if not laying flat during blood draws Encounter for pre-operative examination Memory problem History of depression 1998 per pt Hypertension controlled, stable per pt Chronic constipation with overflow 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 (CVA) 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 (CVA) CVA (cerebral vascular accident) Laceration of eyebrow, right Head trauma Osteoporosis Stroke Surgical History Presence of intrathecal pump Family history of reaction to anesthesia Mother: slow to wake History of gynecologic surgery Labial "removal" History of back surgery Lumbar fusion x2 History of colonoscopy History of tooth extraction History of tonsillectomy Family History Father Cancer Family history of esophageal cancer Other No pertinent family history Denies family history of Ovarian cancer Prostate cancer Diabetes Myocardial infarction Breast cancer Colorectal cancer Hypertension Social History Smoking Status: Never smoker Tobacco Type: Declines Age Started Using Tobacco: 12; Age Quit Using Tobacco: 22; packs per day: 0.1; Second Hand Exposure: No; Do You Dip or Chew Tobacco: No; Hx Alcohol Use: No Hx Substance Use: No Preferred Language: Yi Communication Ability: Impaired Communication Ability Comment: Expressive aphasia from previous CVA Visual Impairment: Limited 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 Maintenance 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 Beliefs That Will Affect Care: None marital status: Single Current Living Situation: [facility] Current Living Situation Comment: [facility] current occupational status: retired How many Children do You have: 0 Feels Safe at Home: Yes Childhood Exposure to Second-Hand Smoke: Yes caffeine: Yes (coffee) Dental Care, Regularly: Yes Physical Activity Frequency: Daily Seatbelt Use: always Sunscreen Use: Yes Assistive Devices: Cane and Stair Lift Review of Systems Review of Systems: The patient is not able to contribute to HPI or review of systems due to baseline mental health Physical Exam Physical Exam: The patient is awake, confused, well developed and well nourished, right facial contusion, lying in bed and in no acute distress. HEENT--PERRL, EOMI, mucous membranes and oropharynx mildly dry. Neck--supple. No JVD. No bruits. Thyroid normal, trachea midline, no adenopathy. Heart--normal S1 and S2. No murmurs, rubs or gallops. Lungs--clear bilaterally, no respiratory distress, no accessory muscle use. Abdomen--normal bowel sounds and soft. Nontender. Nondistended, Extremities--no cyanosis or clubbing. No edema. There are good distal pulses b/l. Dermatologic--normal skin turgor, normal color, no abnormal lymph nodes, no rash. Neurologic--cranial nerves II through XII grossly intact. Rheumatologic--normal range of motion. Psychiatric--normal affect. Results & Data Results & Data Vital Signs (Past 12 Hours) Vital Signs Temp Pulse Pulse Resp BP BP Pulse Ox 03/07/24 00:05 82 03/07/24 00:00 84 14 95 03/06/24 22:51 88 13 94 03/06/24 22:42 90 17 94 03/06/24 22:24 90 13 94 03/06/24 22:18 90 13 94 03/06/24 22:03 87 15 134/74 94 03/06/24 22:00 87 14 94 03/06/24 22:00 90 14 134/74 94 03/06/24 21:45 88 13 94 03/06/24 21:36 89 13 94 03/06/24 21:21 106 H 23 03/06/24 21:12 92 H 14 95 03/06/24 20:39 101 H 17 93 03/06/24 20:31 97 H 15 134/73 94 03/06/24 19:56 97 H 03/06/24 19:06 94 03/06/24 18:31 109 H 18 120/86 94 03/06/24 18:31 37.3 C 109 H 18 120/86 94 O2 Del Method 03/07/24 00:05 03/07/24 00:00 Room Air 03/06/24 22:51 03/06/24 22:42 03/06/24 22:24 03/06/24 22:18 03/06/24 22:03 03/06/24 22:00 03/06/24 22:00 Room Air 03/06/24 21:45 03/06/24 21:36 03/06/24 21:21 03/06/24 21:12 03/06/24 20:39 03/06/24 20:31 Room Air 03/06/24 19:56 03/06/24 19:06 Room Air 03/06/24 18:31 Room Air 03/06/24 18:31 Room Air Laboratory Results Laboratory Results WBC 7.54 K/ul (4.8-10.8) 03/07/24 00:23 RBC 3.28 M/uL (4.20-5.40) L 03/07/24 00:23 Hgb 7.9 g/dl (12.0-16.0) L 03/07/24 00:23 POC Hgb 9.9 g/dl (12.0-16.0) L 03/06/24 19:41 Hct 25.7 % (37.0-47.0) L 03/07/24 00:23 POC Hct 29 % (37-47) L 03/06/24 19:41 MCV 78.4 fL (80.0-100.0) L 03/07/24 00:23 MCH 24.1 pg (25.0-34.0) L 03/07/24 00:23 MCHC 30.7 g/dL (32.0-36.0) L 03/07/24 00:23 RDW Std Deviation 46.5 fL (36.4-46.3) H 03/07/24 00:23 RDW Coeff of Tera 16.3 % (11.5-14.5) H 03/07/24 00:23 Plt Count 993 K/uL (130-400) H 03/07/24 00:23 MPV 8.8 fL (9.4-12.4) L 03/07/24 00:23 Immature Gran % (Auto) 0.3 % 03/07/24 00:23 Neut % (Auto) 54.0 % 03/07/24 00:23 Lymph % (Auto) 29.8 % 03/07/24 00:23 [place] % (Auto) 13.8 % 03/07/24 00:23 Eos % (Auto) 1.6 % 03/07/24 00:23 Baso % (Auto) 0.5 % 03/07/24 00:23 Neut # (Auto) 4.07 K/uL (1.40-6.50) 03/07/24 00:23 Lymph # (Auto) 2.25 K/uL (1.20-3.40) 03/07/24 00:23 [place] # (Auto) 1.04 K/uL (0.11-0.59) H 03/07/24 00:23 Eos # (Auto) 0.12 K/uL (0.00-0.50) 03/07/24 00:23 Baso # (Auto) 0.04 K/uL (0.00-0.20) 03/07/24 00:23 Immature Gran # (Auto) 0.02 K/uL (0.01-0.20) 03/07/24 00:23 Polychromasia 1+ 03/07/24 00:23 PT 11.4 Seconds (9.0-12.0) 03/06/24 19:34 INR 1.1 (0.9-1.1) 03/06/24 19:34 APTT 31 Seconds (21-31) 03/06/24 19:34 PTT Ratio 1.2 03/06/24 19:34 POC Sodium 129 mmol/L (135-144) L 03/06/24 19:41 Sodium 129 mmol/L (136-145) L 03/06/24 19:34 POC Potassium 3.7 mmol/L (3.3-5.0) 03/06/24 19:41 Potassium 3.6 mmol/L (3.5-5.1) 03/06/24 19:34 POC Chloride 92 mmol/L (101-112) L 03/06/24 19:41 Chloride 93 mmol/L (98-107) L 03/06/24 19:34 Carbon Dioxide 27 mmol/L (21-32) 03/06/24 19:34 POC Total CO2 26 mmol/L (24-31) 03/06/24 19:41 Anion Gap 9 (3-11) 03/06/24 19:34 POC Anion Gap 15.0 mmol/L (16-25) L 03/06/24 19:41 POC BUN 4 mg/dl (7-18) L 03/06/24 19:41 BUN 6 mg/dl (6-23) 03/06/24 19:34 Creatinine 0.36 mg/dl (0.6-1.2) L 03/06/24 19:34 POC Creatinine 0.3 mg/dl (0.6-1.3) L 03/06/24 19:41 Est Cr Clr Drug Dosing 107.4 ml/min 03/06/24 19:34 eGFR 110.51 03/06/24 19:34 BUN/Creatinine Ratio 16.7 (10-20) 03/06/24 19:34 Glucose 100 mg/dl (70-99(Fasting)) H 03/06/24 19:34 POC Glucose (other) 101 mg/dl (70-99) H 03/06/24 19:41 Lactate 1.2 mmol/L (0.4-2.0) 03/06/24 19:34 Calcium 8.9 mg/dl (8.6-10.3) 03/06/24 19:34 POC Ioniz Calcium Erendira 1.13 mmol/l (1.12-1.32) 03/06/24 19:41 Magnesium 1.7 mg/dl (1.7-2.4) 03/06/24 19:34 Total Bilirubin 0.4 mg/dl (0.2-1.0) 03/06/24 19:34 AST 10 U/L (13-39) L 03/06/24 19:34 ALT 5 U/L (7-52) L 03/06/24 19:34 Alkaline Phosphatase 75 U/L (34-104) 03/06/24 19:34 Total Creatine Kinase 37 U/L (26-192) 03/06/24 19:34 Troponin I High Sens 6.6 pg/ml (0-14) 03/06/24 19:34 Total Protein 7.8 gm/dl (6.0-8.3) 03/06/24 19:34 Albumin 3.5 gm/dl (3.4-5.0) 03/06/24 19:34 Globulin 4.3 gm/dl (2.5-4.0) H 03/06/24 19:34 Albumin/Globulin Ratio 0.8 (0.9-2) L 03/06/24 19:34 Urine Color Yellow 03/06/24 21: Urine Appearance Cloudy (Clear) A 03/06/24 21: Urine pH 8.0 (4.5-7.5) H 03/06/24 21: Ur Specific Bernard 1.029 (1.000-1.030) 03/06/24 21: Urine Protein Trace (Negative) H 03/06/24 21: Urine Glucose (UA) Negative (Negative) 03/06/24 21: Urine Ketones Negative (Negative) 03/06/24 21: Urine Blood Negative (Negative) 03/06/24 21: Urine Nitrite Negative (Negative) 03/06/24 21: Urine Bilirubin Negative (Negative) 03/06/24 21: Urine Urobilinogen Negative (Negative) 03/06/24 21: Ur Leukocyte Esterase 3+ (Negative) H 03/06/24 21:29 Urine WBC (Auto) >50 /hpf (0-5) H 03/06/24 21: Urine RBC (Auto) 6-10 /hpf (0-2) H 03/06/24 21: U Hyaline Cast (Auto) 0-2 /lpf (0-2) 03/06/24 21: U Epithel Cells (Auto) 6-10 /hpf (0-2) H 03/06/24 21: Urine Bacteria (Auto) 1+ (None Seen) H 03/06/24 21:29 SARS-CoV-2, RNA, NAAT NEGATIVE (NEGATIVE) 03/06/24 22:[address] 03/06/24 19:06 Exam(s): CT L SPINE With Contrast IV Amt: 90 ml optiray 320 EXAM: CT Lumbar Spine With Intravenous Contrast CLINICAL HISTORY: Reason for exam: Trauma. TECHNIQUE: Axial computed tomography images of the lumbar spine with intravenous contrast. CTDI is 16 mGy and DLP is 717 mGy-cm. Automated exposure control was utilized for the study. A dose lowering technique was utilized adhering to the principles of ALARA. CONTRAST: Patient received 90 ml optiray 320 of IV contrast COMPARISON: None FINDINGS: Image quality is hampered by motion and metallic beam hardening artifacts. Vertebrae: Postsurgical spine/posterior interbody fusion instrumentation from T11-S1 with bilateral pedicle screws and interconnecting rods. Osteoporosis. Possible L4 and L5 vertebral fractures. Moderate dextroscoliosis. Exaggerated lumbar lordosis. There is diastasis mild/moderate widening of the right SI joint. Cannot exclude subtle fracture of the left sacral ala. Discs/spinal canal/neural foramina: Multilevel moderately advanced degenerative spondylosis. Soft tissues: Soft tissue edema/anasarca. Other findings: . Bilateral pleural effusions. IMPRESSION: Limited exam. Postsurgical thoracolumbosacral spine. Osteoporosis. Possible L4 and L5 vertebral fractures. Suspect subtle fracture of the left sacral ala. Moderate dextroscoliosis. Exaggerated lumbar lordosis. Multilevel moderately advanced degenerative spondylosis. Electronically signed by: Shanti Carrillo MD, DABR 03/07/24 00:10 AM Abdomen/Pelvis CT 03/06/24 19:07 Exam(s): CT ABDOMEN + PELVIS With Contrast IV Amt: 90 ml optiray 320 EXAM: CT Abdomen and Pelvis With Intravenous Contrast CLINICAL HISTORY: Reason for exam: Trauma. TECHNIQUE: Axial computed tomography images of the abdomen and pelvis with intravenous contrast. CTDI is 26.96 mGy and DLP is 691.25 mGy-cm. Automated exposure control was utilized for the study. A dose lowering technique was utilized adhering to the principles of ALARA. CONTRAST: Patient received 90 ml optiray 320 of IV contrast COMPARISON: None. FINDINGS: A large size electronic battery pack/metallic Device over the mid ventral abdominal wall. Patient's right upper left over the mid/lower abdomen. Diagnostic sensitivity of the exam is markedly hampered/reduced by motion and beam hardening artifacts. Lung bases: Concurrently performed CT chest is reported separately. ABDOMEN: Liver: Unremarkable. Mildly dilated intrahepatic bile ducts. Gallbladder and bile ducts: Unremarkable. No calcified stones. No ductal dilation. Pancreas: Unremarkable as visible.. Spleen: No splenomegaly. Adrenals: Unremarkable. No mass. Kidneys and ureters: No discernible solid mass. No hydronephrosis. Stomach and bowel: A moderately large size hiatal hernia. There is likely mucosal thickening of the fluid/gas filled normal caliber small bowel (series 1700 image 36). Gas/stool filled mild/moderately distended large bowel. There is irregularly lobulated abnormal appearing wall thickening of a moderately distended rectum, suspicious of malignancy (series 17 image 246, series 1700 image 45). PELVIS: Appendix: Not visualized. No obvious acute findings in the region. Bladder: Uniform mild bladder wall thickness. No mass. Reproductive: Likely a lobulated anteverted atrophic uterus present (series 1701, image 62). ABDOMEN and PELVIS: Intraperitoneal space: Unremarkable. No free air. No significant fluid collection. Bones/joints: Diffuse osseous demineralization. Postsurgical thoracolumbosacral spine with posterior fusion instrumentation. Multilevel degenerative spondylosis. Right proximal femur orthopedic instrumentation.. Hip osteoarthrosis. Soft tissues: Lower abdominal/pelvic wall edema/anasarca. Vasculature: Diffuse calcified atherosclerosis of the aortoiliac vasculature and branch vessels. No abdominal aortic aneurysm. Lymph nodes: No enlarged lymph nodes.. IMPRESSION: A markedly limited/nondiagnostic exam. A moderately large size hiatal hernia. Possibly mucosal thickening of fluid/gas filled normal caliber small bowel loops/enteritis. Clinical correlation advised Gas/stool filled mild/moderately distended large bowel loops. Irregular lobulations/abnormal wall thickening of a moderately distended rectum, suspicious of malignancy. Recommend follow-up. Additional findings as described above. Electronically signed by: Shanti Carrillo MD, ANAR 03/06/24 22:[address] 03/06/24 19:07 Exam(s): CT C SPINE EXAM: CT Cervical Spine Without Intravenous Contrast CLINICAL HISTORY: Reason for exam: Trauma. TECHNIQUE: Axial computed tomography images of the cervical spine without intravenous contrast. CTDI is 16.98 mGy and DLP is 717.98 mGy-cm. Automated exposure control was utilized for the study. A dose lowering technique was utilized adhering to the principles of ALARA. COMPARISON: CT cervical spine: 11/22/2023 FINDINGS: Vertebrae: C4 vertebral 3.5 mm of anterolisthesis. C7 vertebral 3 mm anterolisthesis. No acute fracture. Discs/spinal canal/neural foramina: Redemonstrates advanced multilevel degenerative disc/endplate and posterior elements spondylosis with variable degrees of neuroforaminal and central canal stenosis. Soft tissues: Unremarkable. Other findings: Pulmonary biapical pleural parenchymal scarring. . IMPRESSION: No significant abnormalities post trauma. . Electronically signed by: Shanti Carrillo MD, DABR 03/06/24 21:[address] 03/06/24 19:07 Exam(s): CT CHEST With Contrast IV Amt: 90 ml optiray 320 EXAM: CT Chest With Intravenous Contrast CLINICAL HISTORY: Reason for exam: Trauma. TECHNIQUE: Axial computed tomography images of the chest with intravenous contrast. CTDI is 11 mGy and DLP is 311 mGy-cm. Automated exposure control was utilized for the study. A dose lowering technique was utilized adhering to the principles of ALARA. CONTRAST: Patient received 90 ml optiray 320 of IV contrast COMPARISON: CT chest: 11/22/2023 FINDINGS: Motion-induced image degradation limits anatomical details. Lungs: Central airways are patent. Bilateral diffuse bronchial wall thickening. Bilateral lower lung lobes posteriorly consolidation/atelectasis and surrounding interstitial opacities. Pleural space: Moderate volume bilateral pleural effusions RT>LT. No pneumothorax. Heart: Borderland/mild cardiomegaly. Thickly calcified mitral valve annulus. No significant pericardial effusion. No significant coronary artery calcifications. Bones/joints: Osteopenia. A T8 vertebral superior endplate mild/moderate chronic compression fracture . No acute fracture. No dislocation. Degenerative changes of the spine. Increased thoracic kyphosis. Postsurgical thoracolumbar spine. A nondisplaced old fracture of the right third rib posteriorly. Soft tissues: Unremarkable. Vasculature: Unremarkable. No thoracic aortic aneurysm. Lymph nodes: Multiple calcified left hilar lymph nodes in the left lower lung lobe calcified nodules/granulomas. No lymphadenopathy by CT size criteria... IMPRESSION: Moderate volume bilateral new pleural effusions with overlying consolidation/atelectasis and corresponding interstitial infiltrates RT>LT Mild cardiomegaly. A nondisplaced old fracture of the right third rib posteriorly. A T8 vertebral superior endplate mild/moderate chronic compression/fracture seen similar to the prior exam. Electronically signed by: Shanti Carrillo MD, DABR 03/06/24 23:[address] 03/06/24 19:07 Exam(s): CT FACIAL Without Contrast EXAM: CT Maxillofacial Without Intravenous Contrast CLINICAL HISTORY: Reason for exam: Trauma. TECHNIQUE: Axial computed tomography images of the face without intravenous contrast. CTDI is 26.96 mGy and DLP is 291.25 mGy-cm. Automated exposure control was utilized for the study. A dose lowering technique was utilized adhering to the principles of ALARA. COMPARISON: None. FINDINGS: Motion-induced image degradation. Bones/joints: There is a right nasal bone fracture with angulation. No other acute facial bone fracture seen. Bilateral TMJ osteoarthritis. Soft tissues: Unremarkable. Orbits: Unremarkable. Sinuses: Unremarkable. No air-fluid levels.. IMPRESSION: Right nasal bone fracture. Otherwise no significant abnormalities post trauma. . Electronically signed by: Shanti Carrillo MD, DABR 03/06/24 23:[address] 03/06/24 19:07 Exam(s): CT HEAD Without Contrast EXAM: CT Head Without Intravenous Contrast CLINICAL HISTORY: Reason for exam: trauma. TECHNIQUE: Axial computed tomography images of the head/brain without intravenous contrast. CTDI is 65.68 mGy and DLP is 1098.96 mGy-cm. Automated exposure control was utilized for the study. A dose lowering technique was utilized adhering to the principles of ALARA. COMPARISON: CT brain: 11/22/2023 FINDINGS: Extensive motion/beam hardening artifact limits the sensitivity of the exam. Brain: Redemonstrates a large size encephalomalacia involving left chávez radiata with exvacuo-dilatation of the left lateral ventricle/ventriculomegaly. No acute intracranial hemorrhage or midline shift of structures. No abnormal extra-axial fluid collections. Moderate cerebral atrophy with widening of the extra-axial spaces. Basilar cisterns are patent.. Bones/joints: Unremarkable. No acute fracture. Soft tissues: Unremarkable. Sinuses: No acute sinusitis. Mastoid air cells: Unremarkable as visualized. No mastoid effusion.. IMPRESSION: No conclusive evidence of acute intracranial abnormality. . Electronically signed by: Shanti Carrillo MD, DABR 03/06/24 22:[address] 03/06/24 19:07 Exam(s): CT T SPINE IV Amt: 90 ml optiray 320 EXAM: CT Thoracic Spine With Intravenous Contrast CLINICAL HISTORY: Reason for exam: trauma. TECHNIQUE: Axial computed tomography images of the thoracic spine with intravenous contrast. CTDI is 16.98 mGy and DLP is 717 mGy-cm. Automated exposure control was utilized for the study. A dose lowering technique was utilized adhering to the principles of ALARA. CONTRAST: Patient received 90 ml optiray 320 of IV contrast COMPARISON: None. FINDINGS: Diagnostic sensitivity of the exam is reduced by motion artifact. Vertebrae: Diffuse osseous demineralization. T8 vertebral superior endplate anterior wedge compression of indeterminant age (series 1801, image 33).. Otherwise no thoracic vertebral acute fracture is seen. No segmental malalignment. Increased thoracic kyphosis. Posteriorly nondisplaced nonunited fracture of the right second rib (series 302 image 13). Discs/spinal canal/neural foramina: No acute findings. No spinal canal stenosis. Soft tissues: Unremarkable. Other findings: Demonstrates moderate volume bilateral pleural effusions with overlying consolidation/atelectasis and surrounding infiltrates in the lower lobes. Cardiomegaly. Multiple calcified left hilar lymph nodes and left lower lobe calcified nodules/granulomas. IMPRESSION: Suboptimally evaluated due to motion artifact. A T8 vertebral superior endplate anterior wedge compression/fracture of indeterminant age. Otherwise no significant abnormalities post trauma. . Electronically signed by: Shanti Carrillo MD, DUSTIN 03/06/24 22:48 PM Tibia/Fibula X-Ray 03/06/24 19:08 Exam(s): XR RIGHT TIB/FIB, 2 views EXAM: XR Right Tibia and Fibula, 2 Views CLINICAL HISTORY: Reason for exam: Trauma. TECHNIQUE: Frontal and lateral views of the right tibia and fibula. COMPARISON: None. FINDINGS: Bones/joints: Diffuse osseous demineralization. Intramedullary anaid/nail fixation of the visualized right femur. There is a minimally displaced intra-articular fracture of the lateral corner of the tibial plateau. Laterally mild soft tissue swelling of the right knee. Tricompartmental moderate right knee osteoarthrosis. Suspect laterally a subtle nondisplaced cortical fracture of the lateral malleolus. No dislocation. Soft tissues: Soft tissue swelling of the ankle more laterally. No radiopaque foreign body.. IMPRESSION: Osteopenia. A mildly displaced intra-articular fracture of the lateral corner of the right proximal tibia. Likely a subtle nondisplaced cortical fracture laterally of the lateral malleolus. Periarticular soft tissue swelling more laterally. Tricompartmental right knee osteoarthrosis. . Electronically signed by: Shanti Carrillo MD, ANAR 03/06/24 23:56 PM Code Status & VTE Plan Code Status DNR/DNI VTE Prophylaxis Plan VTE Prophylaxis will be ordered: Yes PG Care Time/CCT Total # of Minutes Spent Total Time Spent with Patient: Total time spent is greater than 50% in coordination of care (as documented) at patient's floor/unit and/or counseling patient: Coding Level of Care Code 96398 INT INP/OBS CARE 3/75MIN Diagnoses Parapneumonic effusion J18.9; J91.8 Acute UTI N39.0 Lateral malleolar fracture S82.61XA Encounter type: initial encounter Fracture alignment: displaced Fracture type: closed Laterality: right Fracture of proximal end of tibia S82.101A Encounter type: initial encounter Fracture morphology: unspecified fracture morphology Fracture type: closed Laterality: right Thrombocytosis D75.839 Frequent falls R29.6 (3) Lateral malleolar fracture Encounter type: initial encounter Fracture alignment: displaced Fracture type: closed Laterality: right Qualified Code(s): S82.61XA - Displaced fracture of lateral malleolus of right fibula, initial encounter for closed fracture (4) Fracture of proximal end of tibia Encounter type: initial encounter Fracture morphology: unspecified fracture morphology Fracture type: closed Laterality: right Qualified Code(s): S82.101A - Unspecified fracture of upper end of right tibia, initial encounter for closed fracture
[2024-03-07] MEDS: MEROPENEM 500 MG in SYRINGE 0 ML IV SCH (02:29)
[2024-03-07] MEDS: VANCOMYCIN HCL 1,000 MG in SODIUM CHLORIDE 0.9% 500 ML IV ONE (02:41)
[2024-03-07] MEDS ORDERED: BACLOFEN IT SCH (03:09)
[2024-03-07] MEDS ORDERED: [UNRECOGNIZED DRUG - OTHER] IT SCH (03:09)
[2024-03-07 05:07] LABS: Basophils # (auto) 0.03 K/uL (0.00-0.20); Basophils % (auto) 0.5 %; Eosinophils # (auto) 0.09 K/uL (0.00-0.50); Eosinophils % (auto) 1.6 %; Hematocrit (blood only) 25.8 % (37.0-47.0); Hemoglobin 7.8 g/dl (12.0-16.0); Immature Granulocytes # (auto) 0.02 K/uL (0.01-0.20); Immature Granulocytes % (auto) 0.3 %; Lymphocytes # (auto) 1.22 K/uL (1.20-3.40); Lymphocytes % (auto) 21.2 %; Mean Corpuscular Hemoglobin 23.6 pg (25.0-34.0); Mean Corpuscular Hgb Conc 30.2 g/dL (32.0-36.0); Mean Corpuscular Volume 78.2 fL (80.0-100.0); Mean Platelet Volume 8.6 fL (9.4-12.4); Monocytes # (auto) 1.11 K/uL (0.11-0.59); Monocytes % (auto) 19.3 %; Neutrophils # (auto) 3.29 K/uL (1.40-6.50); Neutrophils % (auto) 57.1 %; Platelet Count 833 K/uL (130-400); RDW Coefficient of Variation 16.2 % (11.5-14.5); RDW Standard Deviation 46.5 fL (36.4-46.3); White Blood Count 5.76 K/ul (4.8-10.8)
[2024-03-07 05:22] LABS: Albumin Globulin Ratio 0.8 (0.9-2); Albumin Level 2.8 gm/dl (3.4-5.0); BUN Creatinine Ratio 9.4 (10-20); Bilirubin,Total 0.4 mg/dl (0.2-1.0); Calcium 8.5 mg/dl (8.6-10.3); Creatinine Clr Calc Pharmacy 120.9 ml/min; Globulin 3.7 gm/dl (2.5-4.0); Magnesium 1.6 mg/dl (1.7-2.4); Potassium 3.4 mmol/L (3.5-5.1); Total Protein 6.5 gm/dl (6.0-8.3)
[2024-03-07 05:30] LABS: INR 1.1 (0.9-1.1); Prothrombin Time 12.3 Seconds (9.0-12.0)
[2024-03-07 06:35] LABS: Polychromasia 1+
--- NOTE | 2024-03-07 08:45 | XRay Report ---
EXAM: XR knee RT 1 or 2V routine CLINICAL HISTORY: RIGHT LOWER LEG TRAUMA RIGHT KNEE AND ANKLE PAIN. TECHNIQUE: X-ray images of the right knee were obtained in 2 views: Anteroposterior (AP) and lateral projections. COMPARISON: X-ray dated 09/28/2023. FINDINGS: Status post back slab/ plaster cast. Visible distal femur diaphysis shows instrumentation from earlier surgery, no periprosthetic lucencies seen to suggest loosening or infection. Bone Structure: Reduced mineralization of the imaged bones seen suggests osteopenia. Bone structure is normal and well-aligned. No evidence of acute fractures or dislocations. No osseous lesions or abnormalities were identified. Joint Spaces: Joint spaces are narrowed in medial and lateral tibiofemoral and patellofemoral compartments with sub articular sclerosis. Articular Surfaces: Intact. Patella: Patella is normal in position and alignment. No evidence of patellar dislocation or subluxation. Soft Tissues: Periarticular soft tissues appear normal and unremarkable. No soft tissue swelling, calcifications, or foreign bodies noted. IMPRESSION: 1. No evidence of acute fractures, or dislocations. 2. Tricompartmental degenerative changes. 3. Osteopenia. 4. Visible distal femur diaphysis shows instrumentation from earlier surgery, no periprosthetic lucencies seen to suggest loosening or infection. 5. Current radiograph remains interval stable since the prior X-ray of 09/28/2023. Disclaimer: A subtle bone abnormality or fracture may not be readily apparent on X-rays, thus clinical correlation and further imaging including follow-up CT, MRI, or follow-up X-rays are advised as needed. Electronically signed by Misael Shin 03-07-2024 08:44 AM
--- NOTE | 2024-03-07 08:54 | XRay Report ---
EXAM: XR ankle RT min 3V routine CLINICAL HISTORY: RIGHT LOWER LEG TRAUMA RIGHT KNEE AND ANKLE PAIN. TECHNIQUE: X-ray images of the right ankle were obtained in anteroposterior (AP), lateral, and mortise projections. COMPARISON: X-ray dated 11/03/2023. FINDINGS: Bone Structure: Status post back slab/plaster cast limiting fine details. Reduced mineralization of the imaged bony structures seen, suggests osteopenia with prominent trabeculae. Bone normal aligned. No evidence of fracture or dislocation. No osseous lesions or abnormalities were identified. Generazlied osteopenia. Joint Spaces: Joint spaces are normal. No evidence of joint effusion or subluxation. Soft Tissues: Soft tissues appear normal and unremarkable. No soft tissue swelling, calcifications, or foreign bodies noted. Additional Findings: Slight spurring of the hindfoot bone seen suggest insignificant/early degenerative changes IMPRESSION: 1. Overlying cast is limiting fine bony details. No evidence of acute fracture, dislocation, or significant soft tissue abnormalities. 2. Osteopenia. Disclaimer: A subtle bone abnormality or occult fracture may not be readily apparent on X-rays, thus clinical correlation and further imaging including follow-up 3D CT, MRI, or follow-up X-rays are advised as needed. Electronically signed by Misael Shin 03-07-2024 08:54 AM
--- NOTE | 2024-03-07 09:00 | Pharmacy Report ---
Pharmacy PK ABX Note - Date of Service March 07, 2024 - Assessment and Plan Assessment 68 year old F receiving Vancomycin and Meropenem for treatment of HAP/UTI. * Day #1 of antimicrobial therapy. 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 * Labs/Vitals: Afebrile and without leukocytosis. Lactate normal. SCr at baseline. * Micro: Urine and Blood cultures pending. MRSA nasal swab negative. * Imaging: Bilateral parapneumonic effusions, right greater than left, per radiology. * Recommendations: Given MRSA nasal swab is negative could consider discontinu ation of vancomycin at this time. Will reach out to provider. However, would not be opposed to continuing for 24 hours given possible UTI as well. Given beta-lactam allergy, meropenem is appropriate at this time. Could consider change to levofloxacin which has an oral option available when discharge is ready. Plan Vancomycin * Loading dose: 1000 mg IV x 1 * Maintenance dose: 750 mg IV every 8 hours * Regimen is predicted to achieve target AUC/TAMY of 400-600 mg/L.hr * Random level ordered for: 03/08/24 Meropenem * 500 mg IV every 6 hours Pharmacy will continue to follow and will adjust dose/frequency as necessary. Thank you. Pharmacy has transitioned to AUC monitoring for vancomycin. AUC/TAMY is the preferred PK/PD target and is associated with decreased risk of nephrotoxicity compared to traditional trough targets.
--- NOTE | 2024-03-07 09:23 | Electrocardiogram Report ---
Test Reason : Blood Pressure : */* mmHG Vent. Rate : 98 BPM Atrial Rate : 98 BPM P-R Int : 140 ms QRS Dur : 70 ms QT Int : 350 ms P-R-T Axes : 32 3 39 degrees QTcB Int : 446 ms Normal sinus rhythm Normal ECG When compared with ECG of 22-Nov-2023 01:21, No significant change was found Confirmed by Renay Steen (Jorge) on 03/07/2024 9:23:19 AM Referred By: REFERRED SELF Confirmed By: Renay Steen
[2024-03-07] MEDS: MAGNESIUM SULFATE / D5W 1 GM/100 ML BAG IV ONE (10:13)
[2024-03-07] MEDS: POTASSIUM CHLORIDE CRTAB 20 MEQ TABCR PO STA (10:14)
[2024-03-07] MEDS: ATORVASTATIN 10 MG TAB PO SCH (10:17)
[2024-03-07] MEDS: CHOLECALCIFEROL 25 MCG (1000 UNITS) TAB PO SCH (10:17)
[2024-03-07] MEDS: DULoxetine HCL 30 MG CAP PO SCH (10:17)
[2024-03-07] MEDS: SENNA 8.6 MG TAB PO SCH (10:18)
[2024-03-07] MEDS: LIDOCAINE 5% 1 PATCH TD SCH (10:18)
[2024-03-07] MEDS: SODIUM CHLORIDE 1 GM TABLET PO SCH (10:18)
[2024-03-07] MEDS: ENOXAPARIN INJ 30 MG/0.3 ML SYR SQ SCH (10:19)
[2024-03-07] MEDS: POTASSIUM CHLORIDE 10 MEQ TABCR PO SCH (10:19)
[2024-03-07] MEDS: DOCUSATE SODIUM 100 MG CAP PO SCH (10:23)
[2024-03-07] MEDS: VANCOMYCIN 750 MG in SODIUM CHLORIDE 0.9% 250 ML IV SCH (11:23)
--- NOTE | 2024-03-07 11:48 | Orthopedic Consultation ---
Date of Consultation March 07, 2024 Assessment & Plan (1) Contusion of right knee: Dedicated xray of the knee was ordered and visualized by myself and Dr. Putnam. No fracture identified. She is nontender over the joint line. Mildly tender over the patella with a superficial abrasion, suspect contusion of the knee. Cast padding and VICKIE wrap ([place] wrap) applied for comfort. Does not need the orthoglass splint. Elevated leg on blankets Cool compresses Unsure of ambulatory status but this injury could be weightbearing as tolerated with walker for stability. PT/OT Pain management and DVT prophylaxis per primary team (2) Right ankle sprain: Dedicated xray of the ankle was ordered and visualized by myself and Dr. Putnam. No fracture identified. She is not tender over the lateral malleolus, however does have some pain in the nakle with passive external rotation, and also has some mild swelling. Suspect ankle sprain. [place] wrap above included the ankle. Ordered an ankle lacer for comfort and stability. WBAT as above if able. PT/OT Cool compresses. Elevate. Passive range of motion as tolerated, she likely will not be able to perform active ROM due to hemiparesis Continue care per Hospitalist service. Plan Agree with Ortho-spine consult for lumbar and sacral fractures. Supervising Physician Co-Signing Physician Notes I, Dr. Putnam, saw and examined the patient. I discussed the management with my PA. I reviewed my PAs note and agree with the documented findings and attest to completing the substantive portion of medical decision making and plan of care I developed. History of Present Illness Reason for Consultation: Right leg injury Requesting Physician: Girish Putnam MD Attending Physician: Oliverio Villasenor MD History of Present Illness History limited due to patient's baseline status This is a 68-year-old female with a history of CVA residual right hemiparesis, expressive aphasia, frequent falls, malnutrition, history of seizures, lumbar postlaminectomy syndrome, urinary incontinence, executive function deficit, who was brought to the emergency department yesterday evening for potential injuries related to a suspected fall. She was found between the toilet and a wall at her facility ([facility])with a suspected unwitnessed fall. Is unclear how long she was down. Patient underwent CT and x-ray imaging in the emergency department with evidence of right nasal bone fracture, subtle left sacral ala fracture, and several potential fractures in the thoracic and lumbar spine, thoracic was felt to be likely chronic. Additional pertinent nontraumatic findings were also noted. Patient was also found to have some tenderness in the right lower leg so a tib/fib x-ray showed possible fracture along the lateral aspect of the proximal tibia as well as a possible lateral malleolus fracture. The patient was placed in a long-leg posterior splint and our service was consulted for the leg injury. Orthospine is also consulted for the vertebral injuries. When asked if the patient is having pain, she points to the right leg. She reports baseline numbness in her right foot/leg. She is unable to answer regarding her ambulatory status Allergies Allergy/AdvReac Type Severity Reaction Status Date / Time cephalexin Allergy Severe Anaphylaxis Verified 02/25/24 10:29 Penicillins AdvReac Mild nausea Verified 02/25/24 10:29 Home Medications Medication Instructions Recorded Confirmed Type baclofen 10 mg tablet 10 mg PO DAILY PRN spasms #90 tabs 12/01/22 03/07/24 Rx celecoxib 200 mg capsule 200 mg PO QAM #90 caps 03/20/23 03/07/24 Rx clopidogrel 75 mg tablet 75 mg PO HS #90 tabs 03/20/23 03/07/24 Rx atorvastatin 10 mg tablet 10 mg PO 3XWK 09/28/23 03/07/24 History duloxetine 30 mg capsule,delayed 30 mg PO DAILY #30 caps 11/12/23 03/07/24 Rx release (Cymbalta) cholecalciferol (vitamin D3) 25 25 mcg PO DAILY 02/18/24 03/07/24 History mcg (1,000 unit) capsule docusate sodium 100 mg capsule 100 mg PO BID 02/18/24 03/07/24 History enoxaparin 30 mg/0.3 mL 30 mg subcut BID 02/18/24 03/07/24 History subcutaneous syringe (Lovenox) lidocaine 4 % topical patch 1 patch topical DAILY 02/18/24 03/07/24 History (Aspercreme (lidocaine)) ondansetron HCl 4 mg tablet 4 mg PO Q4H PRN Nausea And Vomiting 02/18/24 03/07/24 History sennosides 8.6 mg tablet (Senokot) 17.2 mg PO BID 02/18/24 03/07/24 History Wheelchair (Manual) #1 ea 02/25/24 02/25/24 Rx denosumab 60 mg/mL subcutaneous 60 mg subcut UD 03/07/24 03/07/24 History syringe (Prolia) morphine concentrate 100 mg/5 mL 10 mg PO Q1H PRN SOB/Pain 03/07/24 03/07/24 History (20 mg/mL) oral solution sodium chloride 1 gram tablet 2,000 mg PO BID 03/07/24 03/07/24 History tramadol 50 mg tablet 50 mg PO Q8H PRN Severe Pain 03/07/24 03/07/24 History (Scale Score 7-10) Patient History Medical History Headache, post-traumatic, acute Vascular dementia B12 deficiency expressive aphasia Aphasia, post-stroke Hemiparesis affecting right side as late effect of cerebrovascular accident Aphasia as late effect of cerebrovascular accident History of cerebrovascular accident from left carotid artery occlusion involving left middle cerebral artery territory Hemiplegia Right side > wears AFO brace on RLE, no control of right arm History of CVA (cerebrovascular accident) 1998 large left MCA territory in setting of occluded left carotid potentially related to oral contraception at that time > chronic spastic right hemiparesi s, flaccid upper limb and mild to moderate expressive aphasia > on plavix > follows with [place] neuro Fall External constriction of left ring finger, initial encounter Sciatica Osteoporosis with fracture Hyperplastic colon polyp Ring or other jewelry causing external constriction, initial encounter Fall Closed femur fracture Memory loss Left carotid artery occlusion Vasovagal syncope if not laying flat during blood draws Encounter for pre-operative examination Memory problem History of depression 1998 per pt Hypertension controlled, stable per pt Chronic constipation with overflow 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 (CVA) 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 (CVA) CVA (cerebral vascular accident) Laceration of eyebrow, right Head trauma Osteoporosis Stroke Surgical History Presence of intrathecal pump Family history of reaction to anesthesia Mother: slow to wake History of gynecologic surgery Labial "removal" History of back surgery Lumbar fusion x2 History of colonoscopy History of tooth extraction History of tonsillectomy Family History Father Cancer Family history of esophageal cancer Other No pertinent family history Denies family history of Ovarian cancer Prostate cancer Diabetes Myocardial infarction Breast cancer Colorectal cancer Hypertension Social History Smoking Status: Never smoker Tobacco Type: Declines Age Started Using Tobacco: 12; Age Quit Using Tobacco: 22; packs per day: 0.1; Second Hand Exposure: No; Do You Dip or Chew Tobacco: No; Hx Alcohol Use: No Hx Substance Use: No Preferred Language: Ghanaian Communication Ability: Impaired Communication Ability Comment: Expressive aphasia from previous CVA Visual Impairment: Limited Treating And Pumping Supervisor 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 Beliefs That Will Affect Care: None marital status: Single Current Living Situation: Intermediate Current Living Situation Comment: [place] current occupational status: retired How many Children do You have: 0 Feels Safe at Home: Yes Childhood Exposure to Second-Hand Smoke: Yes caffeine: Yes (coffee) Dental Care, Regularly: Yes Physical Activity Frequency: Daily Seatbelt Use: always Sunscreen Use: Yes Assistive Devices: Cane and Stair Lift Physical Exam Physical Exam: Laying in bed. In no apparent distress. Does try to answer questions and makes eye contact. Constitutional: Laying in bed. In no apparent distress. Does try to answer questions and makes eye contact. Cardiovascular: Right DP pulse 2+ Musculoskeletal: Right lower extremity: Splint removed. Superficial abrasion overlying the patella. Mild soft tissue swelling about the foot. No deformities. Vague tenderness over the patella. No tenderness along the joint line of the knee. No pain in the hip or knee with passive range of motion with flexion or extension. Negative Niranjan. Negative posterior drawer. No laxity with varus or valgus stressing. There is no focal tenderness about the ankle however there is pain elicited in the ankle with passive external rotation. No instability noted. Negative anterior drawer test. Negative forefoot squeeze test & Calf squeeze test. No tenderness in the foot. Unable to move toes. Skin: pink, warm, dry Neurologic: Alert. Oriented to person and place. Decreased sensation to light touch in the right lower extremity. Results & Data Vital Signs (Past 12 Hours) Vital Signs Pulse Pulse Resp BP BP Pulse Ox O2 Del Method 03/07/24 07:25 92 H 21 135/80 97 Room Air 03/07/24 07:01 83 12/30/24 06:37 86 16 132/74 96 Room Air 03/07/24 02:43 88 16 130/77 96 Room Air 03/07/24 02:00 85 13 123/67 96 Room Air 03/07/24 01:06 85 13 139/77 93 Room Air 03/07/24 00:05 82 03/07/24 00:00 84 14 95 Room Air Laboratory Results 03/06/24 21:29 Urine Culture - Preliminary Urine,Straight Cath Pin-point growth present, reincubating. 03/07/24 00:23 Aerobic Blood Culture - Pending Blood Anaerobic Blood Culture - Pending 03/07/24 00:09 Aerobic Blood Culture - Pending Blood Anaerobic Blood Culture - Pending 03/07/24 03/07/24 03/07/24 06:35 04:40 00:23 WBC 5.76 7.54 RBC 3.30 L 3.28 L Hgb 7.8 L 7.9 L POC Hgb Hct 25.8 L 25.7 L POC Hct MCV 78.2 L 78.4 L MCH 23.6 L 24.1 L MCHC 30.2 L 30.7 L RDW Std Deviation 46.5 H 46.5 H RDW Coeff of Tera 16.2 H 16.3 H Plt Count 833 H 993 H MPV 8.6 L 8.8 L Immature Gran % (Auto) 0.3 0.3 Neut % (Auto) 57.1 54.0 Lymph % (Auto) 21.2 29.8 [place] % (Auto) 19.3 13.8 Eos % (Auto) 1.6 1.6 Baso % (Auto) 0.5 0.5 Neut # (Auto) 3.29 4.07 Lymph # (Auto) 1.22 2.25 [place] # (Auto) 1.11 H 1.04 H Eos # (Auto) 0.09 0.12 Baso # (Auto) 0.03 0.04 Immature Gran # (Auto) 0.02 0.02 Polychromasia 1+ 1+ PT 12.3 H INR 1.1 APTT PTT Ratio POC Sodium Sodium 133 L POC Potassium Potassium 3.4 L POC Chloride Chloride 98 Carbon Dioxide 29 POC Total CO2 Anion Gap 6 POC Anion Gap POC BUN BUN 3 L Creatinine 0.32 L POC Creatinine Est Cr Clr Drug Dosing 120.9 eGFR 113.69 BUN/Creatinine Ratio 9.4 L Glucose 89 POC Glucose (other) Lactate Calcium 8.5 L POC Ioniz Calcium Erendira Magnesium 1.6 L Total Bilirubin 0.4 AST 9 L ALT 4 L Alkaline Phosphatase 62 Total Creatine Kinase Troponin I High Sens Total Protein 6.5 Albumin 2.8 L Globulin 3.7 Albumin/Globulin Ratio 0.8 L Urine Color Urine Appearance Urine pH Ur Specific [place] Urine Protein Urine Glucose (UA) Urine Ketones Urine Blood Urine Nitrite Urine Bilirubin Urine Urobilinogen Ur Leukocyte Esterase Urine WBC (Auto) Urine RBC (Auto) U Hyaline Cast (Auto) U Epithel Cells (Auto) Urine Bacteria (Auto) Nasal Screen MRSA (PCR) Negative SARS-CoV-2, RNA, NAAT 03/06/24 03/06/24 03/06/24 22:23 21:29 19:41 WBC RBC Hgb POC Hgb 9.9 L Hct POC Hct 29 L MCV MCH MCHC RDW Std Deviation RDW Coeff of Tera Plt Count MPV Immature Gran % (Auto) Neut % (Auto) Lymph % (Auto) [place] % (Auto) Eos % (Auto) Baso % (Auto) Neut # (Auto) Lymph # (Auto) [place] # (Auto) Eos # (Auto) Baso # (Auto) Immature Gran # (Auto) Polychromasia PT INR APTT PTT Ratio POC Sodium 129 L Sodium POC Potassium 3.7 Potassium POC Chloride 92 L Chloride Carbon Dioxide POC Total CO2 26 Anion Gap POC Anion Gap 15.0 L POC BUN 4 L BUN Creatinine POC Creatinine 0.3 L Est Cr Clr Drug Dosing eGFR BUN/Creatinine Ratio Glucose POC Glucose (other) 101 H Lactate Calcium POC Ioniz Calcium Erendira 1.13 Magnesium Total Bilirubin AST ALT Alkaline Phosphatase Total Creatine Kinase Troponin I High Sens Total Protein Albumin Globulin Albumin/Globulin Ratio Urine Color Yellow Urine Appearance Cloudy A Urine pH 8.0 H Ur Specific [place] 1.029 Urine Protein Trace H Urine Glucose (UA) Negative Urine Ketones Negative Urine Blood Negative Urine Nitrite Negative Urine Bilirubin Negative Urine Urobilinogen Negative Ur Leukocyte Esterase 3+ H Urine WBC (Auto) >50 H Urine RBC (Auto) 6-10 H U Hyaline Cast (Auto) 0-2 U Epithel Cells (Auto) 6-10 H Urine Bacteria (Auto) 1+ H Nasal Screen MRSA (PCR) SARS-CoV-2, RNA, NAAT NEGATIVE 03/06/24 19:34 WBC 9.53 RBC 3.66 L Hgb 8.6 L POC Hgb Hct 28.1 L POC Hct MCV 76.8 L MCH 23.5 L MCHC 30.6 L RDW Std Deviation 46.0 RDW Coeff of Tera 16.4 H Plt Count 1038 H* MPV 8.6 L Immature Gran % (Auto) 0.3 Neut % (Auto) 67.0 Lymph % (Auto) 20.7 [place] % (Auto) 11.2 Eos % (Auto) 0.5 Baso % (Auto) 0.3 Neut # (Auto) 6.38 Lymph # (Auto) 1.97 [place] # (Auto) 1.07 H Eos # (Auto) 0.05 Baso # (Auto) 0.03 Immature Gran # (Auto) 0.03 Polychromasia PT 11.4 INR 1.1 APTT 31 PTT Ratio 1.2 POC Sodium Sodium 129 L POC Potassium Potassium 3.6 POC Chloride Chloride 93 L Carbon Dioxide 27 POC Total CO2 Anion Gap 9 POC Anion Gap POC BUN BUN 6 Creatinine 0.36 L POC Creatinine Est Cr Clr Drug Dosing 107.4 eGFR 110.51 BUN/Creatinine Ratio 16.7 Glucose 100 H POC Glucose (other) Lactate 1.2 Calcium 8.9 POC Ioniz Calcium Erendira Magnesium 1.7 Total Bilirubin 0.4 AST 10 L ALT 5 L Alkaline Phosphatase 75 Total Creatine Kinase 37 Troponin I High Sens 6.6 Total Protein 7.8 Albumin 3.5 Globulin 4.3 H Albumin/Globulin Ratio 0.8 L Urine Color Urine Appearance Urine pH Ur Specific [place] Urine Protein Urine Glucose (UA) Urine Ketones Urine Blood Urine Nitrite Urine Bilirubin Urine Urobilinogen Ur Leukocyte Esterase Urine WBC (Auto) Urine RBC (Auto) U Hyaline Cast (Auto) U Epithel Cells (Auto) Urine Bacteria (Auto) Nasal Screen MRSA (PCR) SARS-CoV-2, RNA, NAAT Diagnostic Findings Lumbar Spine CT 03/06/24 19:06 Exam(s): CT L SPINE With Contrast IV Amt: 90 ml optiray 320 EXAM: CT Lumbar Spine With Intravenous Contrast CLINICAL HISTORY: Reason for exam: Trauma. TECHNIQUE: Axial computed tomography images of the lumbar spine with intravenous contrast. CTDI is 16 mGy and DLP is 717 mGy-cm. Automated exposure control was utilized for the study. A dose lowering technique was utilized adhering to the principles of ALARA. CONTRAST: Patient received 90 ml optiray 320 of IV contrast COMPARISON: None FINDINGS: Image quality is hampered by motion and metallic beam hardening artifacts. Vertebrae: Postsurgical spine/posterior interbody fusion instrumentation from T11-S1 with bilateral pedicle screws and interconnecting rods. Osteoporosis. Possible L4 and L5 vertebral fractures. Moderate dextroscoliosis. Exaggerated lumbar lordosis. There is diastasis mild/moderate widening of the right SI joint. Cannot exclude subtle fracture of the left sacral ala. Discs/spinal canal/neural foramina: Multilevel moderately advanced degenerative spondylosis. Soft tissues: Soft tissue edema/anasarca. Other findings: . Bilateral pleural effusions. IMPRESSION: Limited exam. Postsurgical thoracolumbosacral spine. Osteoporosis. Possible L4 and L5 vertebral fractures. Suspect subtle fracture of the left sacral ala. Moderate dextroscoliosis. Exaggerated lumbar lordosis. Multilevel moderately advanced degenerative spondylosis. Electronically signed by: Shanti Carrillo MD, DUSTIN 03/07/24 00:10 AM Tibia/Fibula X-Ray 03/06/24 19:08 Exam(s): XR RIGHT TIB/FIB, 2 views EXAM: XR Right Tibia and Fibula, 2 Views CLINICAL HISTORY: Reason for exam: Trauma. TECHNIQUE: Frontal and lateral views of the right tibia and fibula. COMPARISON: None. FINDINGS: Bones/joints: Diffuse osseous demineralization. Intramedullary anaid/nail fixation of the visualized right femur. There is a minimally displaced intra-articular fracture of the lateral corner of the tibial plateau. Laterally mild soft tissue swelling of the right knee. Tricompartmental moderate right knee osteoarthrosis. Suspect laterally a subtle nondisplaced cortical fracture of the lateral malleolus. No dislocation. Soft tissues: Soft tissue swelling of the ankle more laterally. No radiopaque foreign body.. IMPRESSION: Osteopenia. A mildly displaced intra-articular fracture of the lateral corner of the right proximal tibia. Likely a subtle nondisplaced cortical fracture laterally of the lateral malleolus. Periarticular soft tissue swelling more laterally. Tricompartmental right knee osteoarthrosis. . Electronically signed by: Shanti Carrillo MD, DUSTIN 03/06/24 23:56 PM Ankle X-Ray 03/07/24 07:19 EXAM: XR ankle RT min 3V routine CLINICAL HISTORY: RIGHT LOWER LEG TRAUMA RIGHT KNEE AND ANKLE PAIN. TECHNIQUE: X-ray images of the right ankle were obtained in anteroposterior (AP), lateral, and mortise projections. COMPARISON: X-ray dated 11/03/2023. FINDINGS: Bone Structure: Status post back slab/plaster cast limiting fine details. Reduced mineralization of the imaged bony structures seen, suggests osteopenia with prominent trabeculae. Bone normal aligned. No evidence of fracture or dislocation. No osseous lesions or abnormalities were identified. Generazlied osteopenia. Joint Spaces: Joint spaces are normal. No evidence of joint effusion or subluxation. Soft Tissues: Soft tissues appear normal and unremarkable. No soft tissue swelling, calcifications, or foreign bodies noted. Additional Findings: Slight spurring of the hindfoot bone seen suggest insignificant/early degenerative changes IMPRESSION: 1. Overlying cast is limiting fine bony details. No evidence of acute fracture, dislocation, or significant soft tissue abnormalities. 2. Osteopenia. Disclaimer: A subtle bone abnormality or occult fracture may not be readily apparent on X-rays, thus clinical correlation and further imaging including follow-up 3D CT, MRI, or follow-up X-rays are advised as needed. Electronically signed by Misael Shin 03-07-2024 08:54 AM Knee X-Ray 03/07/24 07:19 EXAM: XR knee RT 1 or 2V routine CLINICAL HISTORY: RIGHT LOWER LEG TRAUMA RIGHT KNEE AND ANKLE PAIN. TECHNIQUE: X-ray images of the right knee were obtained in 2 views: Anteroposterior (AP) and lateral projections. COMPARISON: X-ray dated 09/28/2023. FINDINGS: Status post back slab/ plaster cast. Visible distal femur diaphysis shows instrumentation from earlier surgery, no periprosthetic lucencies seen to suggest loosening or infection. Bone Structure: Reduced mineralization of the imaged bones seen suggests osteopenia. Bone structure is normal and well-aligned. No evidence of acute fractures or dislocations. No osseous lesions or abnormalities were identified. Joint Spaces: Joint spaces are narrowed in medial and lateral tibiofemoral and patellofemoral compartments with sub articular sclerosis. Articular Surfaces: Intact. Patella: Patella is normal in position and alignment. No evidence of patellar dislocation or subluxation. Soft Tissues: Periarticular soft tissues appear normal and unremarkable. No soft tissue swelling, calcifications, or foreign bodies noted. IMPRESSION: 1. No evidence of acute fractures, or dislocations. 2. Tricompartmental degenerative changes. 3. Osteopenia. 4. Visible distal femur diaphysis shows instrumentation from earlier surgery, no periprosthetic lucencies seen to suggest loosening or infection. 5. Current radiograph remains interval stable since the prior X-ray of 09/28/2023. Disclaimer: A subtle bone abnormality or fracture may not be readily apparent on X-rays, thus clinical correlation and further imaging including follow-up CT, MRI, or follow-up X-rays are advised as needed. Electronically signed by Misael Shin 03-07-2024 08:44 AM
[2024-03-07] MEDS: ACETAMINOPHEN 325 MG TAB PO PRN (13:55)
[2024-03-07 14:00] LABS: Ferritin 665.3 ng/ml (8-388)
[2024-03-07 14:06] LABS: Folate (Folic Acid),Ser orPlas 7.86 ng/ml (>5.38)
--- NOTE | 2024-03-07 16:59 | Hospitalist Progress Note ---
Date of Service March 07, 2024 Assessment & Plan (1) Parapneumonic effusion: (2) Acute UTI: (3) Lateral malleolar fracture: (4) Fracture of proximal end of tibia: (5) Thrombocytosis: (6) Frequent falls: Plan The patient is a 68-year-old female with a past medical history including traumatic brain injury with delayed recovery, fractured scapula, multiple fractures of right sided ribs, frequent falls, generalized weakness, malnutrition, seizure history, hyponatremia, aphasia due to disease, executive function deficit, lumbar postlaminectomy syndrome and urinary incontinence. She is referred to the emergency department after being found between the toilet and wall facility for an unknown length of time after an unwitnessed fall. Staff became concerned because the patient had a simin on the right side of her face, and that she seemed more confused than her baseline. #Parapneumonic effusions bilaterally- May be an element of aspiration Chest CT 03/06: moderate volume b/l new pleural effusions w/ overlying consolidation/atelectasis & corresponding interstitial infiltrates. Placed on vancomycin IV and meropenem IV, continue pending results of BC and UC. DuoNebs every 2 hours as needed Nasal cannula oxygen, titrate to keep pulse ox around 94% #Urinary tract infection- Follow urine culture and sensitivity Antibiotics as above #Right proximal tibial and lateral malleolar fracture- Read as possibly acute by radiology overnight Ortho evaluated patient 03/07 - no fracture identified. Likely right knee contusion and right ankle sprain. Immobilizer from ED removed - cast padding and VICKIE wrap applied for comfort. PT/OT #Multiple vertebral fractures, with unclear timeframe- Patient has had significant trauma admission at [facility] in [place] in December this year Fractures at T8, L4 and L5 have been referred to but, appears to be more chronic than acute Consult orthopedic spine pending Presently on a baclofen pump, Which has been recently refilled by pain management service, and reportedly is filled until sometime in March #Thrombocytosis/progressive anemia- Platelets have been 298 at baseline, but on admission were 1038 Hemoglobin has increased decreased gradually from 15.3-11 0.2-8 0.6-7.9 CBC 03/07: WBC WNL, hgb 7.8, plt 833 Iron panel: transferrin sat 7%, iron 11, TIBC 160 s/p IV Venofer 03/07, consider additional doses while inpatient. Vitamin B12: 154, started on PO supplementation, consider B12 injection. Possible enteritis, possible large bowel loops and question of possible malignancy with anasarca on CTAP from 03/06 Given iron deficiency anemia and concern for malignancy on CT scan, could consider GI consultation however unsure if patient would be able to tolerate the bowel prep or be willing to undergo the procedure. Monitor H/H, transfuse to keep hgb > 7 Monitor for signs of bleeding, none observed thus far. #Hypokalemia- Potassium 03/07: 3.4 Repleted w/ additional 20meq PO K. Patient takes 10meq daily #Hypomagnesemia- Magnesium 1.6 s/p 1 bag IV mag AM CBC, BMP #Long-term disposition, patient has been seen by palliative care in the outpatient setting Depending upon above, patient may need palliative consult CODE STATUS: DNR/DNI Admission and Anticipated Discharge Date Admission Date: March 07, 2024 Subjective Patient seen and examined this morning. No history able to be obtained from patient. Physical Exam Constitutional: WD/WN, vitals as above Eyes: PERRL, conjunctivae normal, anicteric sclerae Respiratory: normal respiratory effort, lungs clear to auscultation Cardiovascular: RRR, no murmur, no edema Results & Data Results & Data Vital Signs (Past 12 Hours) Vital Signs Temp Pulse Pulse Resp BP BP Pulse Ox 03/07/24 16:09 84 03/07/24 15:46 36.9 C 85 17 135/82 92 03/07/24 15:30 85 14 95 03/07/24 15:03 80 12 95 03/07/24 14:30 87 13 93 03/07/24 14:00 92 H 14 94 03/07/24 13:33 92 H 14 94 03/07/24 13:00 92 H 16 96 03/07/24 12:33 93 H 16 96 03/07/24 12:03 85 13 89 L 03/07/24 11:36 83 14 95 03/07/24 11:03 84 14 94 03/07/24 10:36 83 13 94 03/07/24 10:03 87 17 100 03/07/24 09:33 80 14 100 03/07/24 09:03 81 19 98 03/07/24 08:30 84 11 L 95 03/07/24 08:00 81 14 96 03/07/24 07:30 82 13 97 03/07/24 07:25 92 H 21 135/80 97 03/07/24 07:24 135/80 03/07/24 07:03 84 16 03/07/24 07:01 83 03/07/24 06:42 83 15 03/07/24 06:37 86 16 132/74 96 03/07/24 06:36 132/74 03/07/24 06:27 81 15 03/07/24 06:00 76 16 03/07/24 05:33 85 19 03/07/24 05:00 90 22 O2 Del Method 03/07/24 16:09 03/07/24 15:46 Room Air 03/07/24 15:30 03/07/24 15:03 03/07/24 14:30 03/07/24 14:00 03/07/24 13:33 03/07/24 13:00 03/07/24 12:33 03/07/24 12:03 03/07/24 11:36 03/07/24 11:03 03/07/24 10:36 03/07/24 10:03 03/07/24 09:33 03/07/24 09:03 03/07/24 08:30 03/07/24 08:00 03/07/24 07:30 03/07/24 07:25 Room Air 03/07/24 07:24 03/07/24 07:03 03/07/24 07:01 03/07/24 06:42 03/07/24 06:37 Room Air 03/07/24 06:36 03/07/24 06:27 03/07/24 06:00 03/07/24 05:33 03/07/24 05:00 PG Care Time/CCT Total # of Minutes Spent Total Time Spent with Patient: Total time spent is greater than 50% in coordination of care (as documented) at patient's floor/unit and/or counseling patient: Coding Level of Care Code 80786 SUB INP/OBS CARE 2/35MIN Diagnoses Parapneumonic effusion J18.9; J91.8 Acute UTI N39.0 Lateral malleolar fracture S82.61XA Encounter type: initial encounter Fracture alignment: displaced Fracture type: closed Laterality: right Fracture of proximal end of tibia S82.101A Encounter type: initial encounter Fracture morphology: unspecified fracture morphology Fracture type: closed Laterality: right Thrombocytosis D75.839 Frequent falls R29.6 (3) Lateral malleolar fracture Encounter type: initial encounter Fracture alignment: displaced Fracture type: closed Laterality: right Qualified Code(s): S82.61XA - Displaced fracture of lateral malleolus of right fibula, initial encounter for closed fracture (4) Fracture of proximal end of tibia Encounter type: initial encounter Fracture morphology: unspecified fracture morphology Fracture type: closed Laterality: right Qualified Code(s): S82.101A - Unspecified fracture of upper end of right tibia, initial encounter for closed fracture
[2024-03-07] MEDS: IRON SUCROSE 200 MG in SODIUM CHLORIDE 0.9% 100 ML IV ONE (17:51)
--- NOTE | 2024-03-07 18:13 | Oncology Consultation ---
Date of Consultation March 07, 2024 Assessment & Plan (1) Acute UTI: (2) Pneumonia: (3) Thrombocytosis: (4) Anemia: Plan -Thrombocytosis likely multifactorial due to infection/inflammation, hemoconcentration and iron deficiency anemia. Platelet count has improved since admission. No concern at this time for myeloproliferative neoplasm given completely normal platelet count about 3 months ago.Should improve with treatment of infection and iron supplementation -She has anemia which is also multifactorial due to iron deficiency, B12 deficiency and chronic inflammation/malignancy. Although ferritin is elevated likely due to inflammation/Infection/malignancy, other Serum iron and transferrin saturation suggestive of iron deficiency. Recommend daily oral iron supplementation. Also recommend oral/parenteral B12 supplementation for B12 deficiency. -CT imaging suggestive of possibly underlying GI malignancy which is likely contributing to microcytic anemia. Recommend consideration for GI involvement Thank you for this consult. Please feel free to call if you have any other questions History of Present Illness Reason for Consultation: Thrombocytosis, anemia Attending Physician: Oliverio Villasenor MD History of Present Illness 68-year-old female with medical history significant for traumatic brain injury, aphasia who presented to the ED after an unwitnessed fall. Labs obtained in the ER revealed normal WBC of 9.5, anemia with hemoglobin of 8.6, hematocrit 28.1, MCV 76.8 and platelet count of 1.038million.Repeat labs obtained today show hemoglobin of 7.8, hematocrit 25.8, MCV 78.2, platelet count of 833,000. Of note, CBC was essentially unremarkable on 11/22/2023 with hemoglobin of 11.2, hematocrit 32.4 and platelet count of 290,000 CT abdomen and pelvis revealed irregularly lobulated abnormal appearing wall thickening of moderately distended rectum suspicious for malignancy. CT chest revealed moderate volume bilateral new pleural effusions with overlying consolidation/atelectasis. CT face revealed right nasal bone fracture. CT head was unremarkable. CT thoracic spine revealed T8 vertebral superior endplate anterior wedge compression/fracture of indeterminate age. Right tibia/fibula x- ray revealed mildly displaced intra-articular fracture of the lateral corner of the right proximal tibia. She is currently on antibiotics for UTI and pneumonia Allergies Allergy/AdvReac Type Severity Reaction Status Date / Time cephalexin Allergy Severe Anaphylaxis Verified 02/25/24 10:29 Penicillins AdvReac Mild nausea Verified 02/25/24 10:29 Home Medications Medication Instructions Recorded Confirmed Type baclofen 10 mg tablet 10 mg PO DAILY PRN spasms #90 tabs 12/01/22 03/07/24 Rx celecoxib 200 mg capsule 200 mg PO QAM #90 caps 03/20/23 03/07/24 Rx clopidogrel 75 mg tablet 75 mg PO HS #90 tabs 03/20/23 03/07/24 Rx atorvastatin 10 mg tablet 10 mg PO 3XWK 09/28/23 03/07/24 History duloxetine 30 mg capsule,delayed 30 mg PO DAILY #30 caps 11/12/23 03/07/24 Rx release (Cymbalta) cholecalciferol (vitamin D3) 25 25 mcg PO DAILY 02/18/24 03/07/24 History mcg (1,000 unit) capsule docusate sodium 100 mg capsule 100 mg PO BID 02/18/24 03/07/24 History enoxaparin 30 mg/0.3 mL 30 mg subcut BID 02/18/24 03/07/24 History subcutaneous syringe (Lovenox) lidocaine 4 % topical patch 1 patch topical DAILY 02/18/24 03/07/24 History (Aspercreme (lidocaine)) ondansetron HCl 4 mg tablet 4 mg PO Q4H PRN Nausea And Vomiting 02/18/24 03/07/24 History sennosides 8.6 mg tablet (Senokot) 17.2 mg PO BID 02/18/24 03/07/24 History Wheelchair (Manual) #1 ea 02/25/24 02/25/24 Rx denosumab 60 mg/mL subcutaneous 60 mg subcut UD 03/07/24 03/07/24 History syringe (Prolia) morphine concentrate 100 mg/5 mL 10 mg PO Q1H PRN SOB/Pain 03/07/24 03/07/24 History (20 mg/mL) oral solution sodium chloride 1 gram tablet 2,000 mg PO BID 03/07/24 03/07/24 History tramadol 50 mg tablet 50 mg PO Q8H PRN Severe Pain 03/07/24 03/07/24 History (Scale Score 7-10) Patient History Medical History Headache, post-traumatic, acute Vascular dementia B12 deficiency expressive aphasia Aphasia, post-stroke Hemiparesis affecting right side as late effect of cerebrovascular accident Aphasia as late effect of cerebrovascular accident History of cerebrovascular accident from left carotid artery occlusion involving left middle cerebral artery territory Hemiplegia Right side > wears AFO brace on RLE, no control of right arm History of CVA (cerebrovascular accident) 1998 large left MCA territory in setting of occluded left carotid potentially related to oral contraception at that time > chronic spastic right hemiparesis, flaccid upper limb and mild to moderate expressive aphasia > on plavix > follows with [facility] neuro Fall External constriction of left ring finger, initial encounter Sciatica Osteoporosis with fracture Hyperplastic colon polyp Ring or other jewelry causing external constriction, initial encounter Fall Closed femur fracture Memory loss Left carotid artery occlusion Vasovagal syncope if not laying flat during blood draws Encounter for pre-operative examination Memory problem History of depression 1998 per pt Hypertension controlled, stable per pt Chronic constipation with overflow 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 (CVA) 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 (CVA) CVA (cerebral vascular accident) Laceration of eyebrow, right Head trauma Osteoporosis Stroke Surgical History Presence of intrathecal pump Family history of reaction to anesthesia Mother: slow to wake History of gynecologic surgery Labial "removal" History of back surgery Lumbar fusion x2 History of colonoscopy History of tooth extraction History of tonsillectomy Family History Father Cancer Family history of esophageal cancer Other No pertinent family history Denies family history of Ovarian cancer Prostate cancer Diabetes Myocardial infarction Breast cancer Colorectal cancer Hypertension Social History Smoking Status: Never smoker Tobacco Type: Declines Age Started Using Tobacco: 12; Age Quit Using Tobacco: 22; packs per day: 0.1; Second Hand Exposure: No; Do You Dip or Chew Tobacco: No; Hx Alcohol Use: No Hx Substance Use: No Preferred Language: Uzbek Communication Ability: Impaired Communication Ability Comment: Expressive aphasia from previous CVA Visual Impairment: Limited [employer] 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 Beliefs That Will Affect Care: None marital status: Single Current Living Situation: Skilled Nursing Current Living Situation Comment: [facility] current occupational status: retired How many Children do You have: 0 Feels Safe at Home: Yes Childhood Exposure to Second-Hand Smoke: Yes caffeine: Yes (coffee) Dental Care, Regularly: Yes Physical Activity Frequency: Daily Seatbelt Use: always Sunscreen Use: Yes Assistive Devices: Cane and Stair Lift Results & Data Vital Signs (Past 12 Hours) Vital Signs Temp Pulse Pulse Resp BP BP Pulse Ox 03/07/24 16:09 84 03/07/24 15:46 36.9 C 85 17 135/82 92 03/07/24 15:30 85 14 95 03/07/24 15:03 80 12 95 03/07/24 14:30 87 13 93 03/07/24 14:00 92 H 14 94 03/07/24 13:33 92 H 14 94 03/07/24 13:00 92 H 16 96 03/07/24 12:33 93 H 16 96 03/07/24 12:03 85 13 89 L 03/07/24 11:36 83 14 95 03/07/24 11:03 84 14 94 03/07/24 10:36 83 13 94 03/07/24 10:03 87 17 100 03/07/24 09:33 80 14 100 03/07/24 09:03 81 19 98 03/07/24 08:30 84 11 L 95 03/07/24 08:00 81 14 96 03/07/24 07:30 82 13 97 03/07/24 07:25 92 H 21 135/80 97 03/07/24 07:24 135/80 03/07/24 07:03 84 16 03/07/24 07:01 83 03/07/24 06:42 83 15 03/07/24 06:37 86 16 132/74 96 03/07/24 06:36 132/74 03/07/24 06:27 81 15 O2 Del Method 03/07/24 16:09 03/07/24 15:46 Room Air 03/07/24 15:30 03/07/24 15:03 03/07/24 14:30 03/07/24 14:00 03/07/24 13:33 03/07/24 13:00 03/07/24 12:33 03/07/24 12:03 03/07/24 11:36 03/07/24 11:03 03/07/24 10:36 03/07/24 10:03 03/07/24 09:33 03/07/24 09:03 03/07/24 08:30 03/07/24 08:00 03/07/24 07:30 03/07/24 07:25 Room Air 03/07/24 07:24 03/07/24 07:03 03/07/24 07:01 03/07/24 06:42 03/07/24 06:37 Room Air 03/07/24 06:36 03/07/24 06:27 (2) Pneumonia Laterality: unspecified laterality Lung location: unspecified part of lung Pneumonia type: due to unspecified organism Qualified Code(s): J18.9 - Pneumonia, unspecified organism
[2024-03-07 18:36] LABS: A calco-baum cmplx NotReported Not Detected (NotDetected); Bact fragilis Not Reported Not Detected (NotDetected); Blood Culture Id Panel See PCR Comment (NotDetected); C auris Not Reported Not Detected (NotDetected); Calbicans Not Reported Not Detected (NotDetected); Candida glabrata Not Reported Not Detected (NotDetected); Candida krusei Not Reported Not Detected (NotDetected); Cneoformans/gatti Not Reported Not Detected (NotDetected); Cparapsilosis Not Reported Not Detected (NotDetected); E cloacae compx Not Reported Not Detected (NotDetected); Efaecalis Not Reported Not Detected (NotDetected); Efaecium Not Reported Not Detected (NotDetected); Enterobacterales Not Reported Not Detected (NotDetected); Escherichia coli Not Reported Not Detected (NotDetected); H influenzae Not Reported Not Detected (NotDetected); K aerogenes Not Reported Not Detected (NotDetected); Koxytoca Not Reported Not Detected (NotDetected); Kpneumoniae grp Not Reported Not Detected (NotDetected); Lmonocyt Not Reported Not Detected (NotDetected); N meningitidis Not Reported Not Detected (NotDetected); P aeruginosa Not Reported Not Detected (NotDetected); Proteus spp Not Reported Not Detected (NotDetected); Salmonella spp Not Reported Not Detected (NotDetected); Staph lugdunensis Not Reported Not Detected (NotDetected); Staph spp. Not Reported DETECTED (NotDetected); Staphaureus Not Reported DETECTED (NotDetected); Staphepi Not Reported Not Detected (NotDetected); Staphylococcus spp. DETECTED (NotDetected); Stenmaltophilia Not Reported Not Detected (NotDetected); Strep agal(GrpB) Not Reported Not Detected (NotDetected); Strep pneum Not Reported Not Detected (NotDetected); Strep pyog (GrpA) Not Reported Not Detected (NotDetected); Strep spp Not Reported Not Detected (NotDetected); mecAC+MREJ Resistant Gene MRSA Not Detected (NotDetected)
[2024-03-08] MEDS: CYANOCOBALAMIN (B-12) 100 MCG TABLET PO SCH (08:28)
[2024-03-08 10:37] LABS: Basophils # (auto) 0.03 K/uL (0.00-0.20); Basophils % (auto) 0.5 %; Eosinophils # (auto) 0.13 K/uL (0.00-0.50); Hematocrit (blood only) 25.8 % (37.0-47.0); Hemoglobin 7.8 g/dl (12.0-16.0); Immature Granulocytes # (auto) 0.02 K/uL (0.01-0.20); Immature Granulocytes % (auto) 0.3 %; Lymphocytes # (auto) 1.34 K/uL (1.20-3.40); Lymphocytes % (auto) 20.8 %; Mean Corpuscular Hemoglobin 23.9 pg (25.0-34.0); Mean Corpuscular Hgb Conc 30.2 g/dL (32.0-36.0); Mean Corpuscular Volume 78.9 fL (80.0-100.0); Mean Platelet Volume 8.9 fL (9.4-12.4); Monocytes # (auto) 0.74 K/uL (0.11-0.59); Monocytes % (auto) 11.5 %; Neutrophils # (auto) 4.17 K/uL (1.40-6.50); Neutrophils % (auto) 64.9 %; Platelet Count 883 K/uL (130-400); RDW Coefficient of Variation 16.4 % (11.5-14.5); Red Blood Count 3.27 M/uL (4.20-5.40); White Blood Count 6.43 K/ul (4.8-10.8)
--- NOTE | 2024-03-08 10:37 | Orthopedic Progress Note ---
Date of Service March 08, 2024 Assessment & Plan (1) Contusion of right knee: Plan: suspect contusion of the knee. Cast padding and VICKIE wrap ([place] wrap) Elevated leg on blankets Cool compresses Unsure of ambulatory status but this injury could be weightbearing as tolerated with walker for stability. However will most likely need a wheelchair PT/OT Pain management and DVT prophylaxis per primary team Patient will most likely need to go to a rehab facility Case management evaluation (2) Right ankle sprain: Plan: Suspect ankle sprain. [place] wrap above included the ankle. Ankle lacer for comfort and stability. WBAT as above if able. PT/OT Cool compresses. Elevate. Passive range of motion as tolerated, she likely will not be able to perform active ROM due to hemiparesis Continue care per Hospitalist service. Plan Agree with Ortho-spine consult for lumbar and sacral fractures. Please recall if any other ortho issues. F/U in Dr. Putnam's office in 2 weeks Admission and Anticipated Discharge Date Admission Date: March 07, 2024 Supervising Physician Co-Signing Physician Notes I, Dr. Putnam, saw and examined the patient. I discussed the management with my PA. I reviewed my PAs note and agree with the documented findings and attest to completing the substantive portion of medical decision making and plan of care I developed. Subjective This 68-year-old female seen today for follow-up of right knee and ankle pain after reportedly sustaining a fall a few days ago. Patient does not recall what caused her discomfort. She states that the compressive dressing and ankle brace on her right leg have helped considerably. Patient denies any significant pain at this time. She has difficulty being consistent with her responses due to previous history of a CVA. Patient does express confusion. She denies chest pain or shortness of breath, nausea, vomiting, diarrhea, fever chills or sweats. She currently has a Ornelas catheter in place. Review of Systems Review of Systems: All systems reviewed & are unremarkable except as noted in Subjective Physical Exam Physical Exam: Right lower extremity: Patient tolerates passive knee extension to 0 degrees and flexion beyond 90 degrees. She is able to actively extend and flex her knee but is able to reach or I was able to manipulate passively. Patient has no discomfort with dorsi or plantarflexion of her foot. She has no discomfort with internal or external rotation of her ankle. When I perform the examination she is stated that she was able to detect light sensation to touch over the pads of her digits, however when Dr. Putnam examined her she was not able to feel them touching her. She is unable to perform active straight leg raise test. Results & Data Vital Signs (Past 12 Hours) Vital Signs Temp Pulse Pulse Resp BP Pulse Ox O2 Del Method 03/08/24 07:30 36.9 C 95 H 18 139/78 93 Room Air 03/08/24 05:15 89 03/08/24 03:04 36.8 C 88 18 135/73 92 Room Air 03/07/24 23:36 37.3 C 89 16 149/64 H 93 Room Air Diagnostic Findings Laboratory Results WBC 6.43 K/ul (4.8-10.8) 03/08/24 10:10 RBC 3.27 M/uL (4.20-5.40) L 03/08/24 10:10 Hgb 7.8 g/dl (12.0-16.0) L 03/08/24 10:10 POC Hgb 9.9 g/dl (12.0-16.0) L 03/06/24 19:41 Hct 25.8 % (37.0-47.0) L 03/08/24 10:10 POC Hct 29 % (37-47) L 03/06/24 19:41 MCV 78.9 fL (80.0-100.0) L 03/08/24 10:10 MCH 23.9 pg (25.0-34.0) L 03/08/24 10:10 MCHC 30.2 g/dL (32.0-36.0) L 03/08/24 10:10 RDW Std Deviation 47.0 fL (36.4-46.3) H 03/08/24 10:10 RDW Coeff of Tera 16.4 % (11.5-14.5) H 03/08/24 10:10 Plt Count 883 K/uL (130-400) H 03/08/24 10:10 MPV 8.9 fL (9.4-12.4) L 03/08/24 10:10 Immature Gran % (Auto) 0.3 % 03/08/24 10:10 Neut % (Auto) 64.9 % 03/08/24 10:10 Lymph % (Auto) 20.8 % 03/08/24 10:10 [place] % (Auto) 11.5 % 03/08/24 10:10 Eos % (Auto) 2.0 % 03/08/24 10:10 Baso % (Auto) 0.5 % 03/08/24 10:10 Neut # (Auto) 4.17 K/uL (1.40-6.50) 03/08/24 10:10 Lymph # (Auto) 1.34 K/uL (1.20-3.40) 03/08/24 10:10 [place] # (Auto) 0.74 K/uL (0.11-0.59) H 03/08/24 10:10 Eos # (Auto) 0.13 K/uL (0.00-0.50) 03/08/24 10:10 Baso # (Auto) 0.03 K/uL (0.00-0.20) 03/08/24 10:10 Immature Gran # (Auto) 0.02 K/uL (0.01-0.20) 03/08/24 10:10 Polychromasia 1+ 03/07/24 04:40 Peripher Smr Path Cons 03/07/24 13:05 PT 12.3 Seconds (9.0-12.0) H 03/07/24 04:40 INR 1.1 (0.9-1.1) 03/07/24 04:40 APTT 31 Seconds (21-31) 03/06/24 19:34 PTT Ratio 1.2 03/06/24 19:34 POC Sodium 129 mmol/L (135-144) L 03/06/24 19:41 Sodium 133 mmol/L (136-145) L 03/07/24 04:40 POC Potassium 3.7 mmol/L (3.3-5.0) 03/06/24 19:41 Potassium 3.4 mmol/L (3.5-5.1) L 03/07/24 04:40 POC Chloride 92 mmol/L (101-112) L 03/06/24 19:41 Chloride 98 mmol/L (98-107) 03/07/24 04:40 Carbon Dioxide 29 mmol/L (21-32) 03/07/24 04:40 POC Total CO2 26 mmol/L (24-31) 03/06/24 19:41 Anion Gap 6 (3-11) 03/07/24 04:40 POC Anion Gap 15.0 mmol/L (16-25) L 03/06/24 19:41 POC BUN 4 mg/dl (7-18) L 03/06/24 19:41 BUN 3 mg/dl (6-23) L 03/07/24 04:40 Creatinine 0.32 mg/dl (0.6-1.2) L 03/07/24 04:40 POC Creatinine 0.3 mg/dl (0.6-1.3) L 03/06/24 19:41 Est Cr Clr Drug Dosing 120.9 ml/min 03/07/24 04:40 eGFR 113.69 03/07/24 04:40 BUN/Creatinine Ratio 9.4 (10-20) L 03/07/24 04:40 Glucose 89 mg/dl (70-99(Fasting)) 03/07/24 04:40 POC Glucose (other) 101 mg/dl (70-99) H 03/06/24 19:41 Lactate 1.2 mmol/L (0.4-2.0) 03/06/24 19:34 Calcium 8.5 mg/dl (8.6-10.3) L 03/07/24 04:40 POC Ioniz Calcium Erendira 1.13 mmol/l (1.12-1.32) 03/06/24 19:41 Magnesium 1.6 mg/dl (1.7-2.4) L 03/07/24 04:40 Iron 11 mcg/dl (35-150) L 03/07/24 13:05 TIBC 160 mcg/dl (250-450) L 03/07/24 13:05 Transferrin 114 mg/dl (200-360) L 03/07/24 13:05 Transferrin % Sat 7 % (15-50) L 03/07/24 13:05 Ferritin 665.3 ng/ml (8-388) H 03/07/24 13:05 Total Bilirubin 0.4 mg/dl (0.2-1.0) 03/07/24 04:40 AST 9 U/L (13-39) L 03/07/24 04:40 ALT 4 U/L (7-52) L 03/07/24 04:40 Alkaline Phosphatase 62 U/L (34-104) 03/07/24 04:40 Total Creatine Kinase 37 U/L (26-192) 03/06/24 19:34 Troponin I High Sens 6.6 pg/ml (0-14) 03/06/24 19:34 Total Protein 6.5 gm/dl (6.0-8.3) 03/07/24 04:40 Albumin 2.8 gm/dl (3.4-5.0) L 03/07/24 04:40 Globulin 3.7 gm/dl (2.5-4.0) 03/07/24 04:40 Albumin/Globulin Ratio 0.8 (0.9-2) L 03/07/24 04:40 Vitamin B12 154 pg/ml (180-914) L 03/07/24 13:05 Folate 7.86 ng/ml (>5.38) 03/07/24 13:05 Urine Color Yellow 03/06/24 21: Urine Appearance Cloudy (Clear) A 03/06/24 21: Urine pH 8.0 (4.5-7.5) H 03/06/24 21: Ur Specific Cranks 1.029 (1.000-1.030) 03/06/24 21: Urine Protein Trace (Negative) H 03/06/24 21: Urine Glucose (UA) Negative (Negative) 03/06/24 21: Urine Ketones Negative (Negative) 03/06/24 21: Urine Blood Negative (Negative) 03/06/24 21: Urine Nitrite Negative (Negative) 03/06/24 21: Urine Bilirubin Negative (Negative) 03/06/24 21: Urine Urobilinogen Negative (Negative) 03/06/24 21:29 Ur Leukocyte Esterase 3+ (Negative) H 03/06/24 21:29 Urine WBC (Auto) >50 /hpf (0-5) H 03/06/24 21: Urine RBC (Auto) 6-10 /hpf (0-2) H 03/06/24 21: U Hyaline Cast (Auto) 0-2 /lpf (0-2) 03/06/24 21: U Epithel Cells (Auto) 6-10 /hpf (0-2) H 03/06/24 21: Urine Bacteria (Auto) 1+ (None Seen) H 03/06/24 21:29 Nasal Screen MRSA (PCR) Negative (Negative) 03/07/24 06:35 SARS-CoV-2, RNA, NAAT NEGATIVE (NEGATIVE) 03/06/24 22:23 Staphylococcus sp PCR DETECTED (NotDetected) A 03/07/24 00:09 Staph aureus (PCR) DETECTED (NotDetected) A 03/07/24 00:09 mecA/C & MREJ Resist Gene MRSA Not Detected (NotDetected) 03/07/24 00:09 Bld Cult ID Panel PCR See PCR Comment (NotDetected) 03/07/24 00:[address] 03/06/24 19:06 Exam(s): CT L SPINE With Contrast IV Amt: 90 ml optiray 320 EXAM: CT Lumbar Spine With Intravenous Contrast CLINICAL HISTORY: Reason for exam: Trauma. TECHNIQUE: Axial computed tomography images of the lumbar spine with intravenous contrast. CTDI is 16 mGy and DLP is 717 mGy-cm. Automated exposure control was utilized for the study. A dose lowering technique was utilized adhering to the principles of ALARA. CONTRAST: Patient received 90 ml optiray 320 of IV contrast COMPARISON: None FINDINGS: Image quality is hampered by motion and metallic beam hardening artifacts. Vertebrae: Postsurgical spine/posterior interbody fusion instrumentation from T11-S1 with bilateral pedicle screws and interconnecting rods. Osteoporosis. Possible L4 and L5 vertebral fractures. Moderate dextroscoliosis. Exaggerated lumbar lordosis. There is diastasis mild/moderate widening of the right SI joint. Cannot exclude subtle fracture of the left sacral ala. Discs/spinal canal/neural foramina: Multilevel moderately advanced degenerative spondylosis. Soft tissues: Soft tissue edema/anasarca. Other findings: . Bilateral pleural effusions. IMPRESSION: Limited exam. Postsurgical thoracolumbosacral spine. Osteoporosis. Possible L4 and L5 vertebral fractures. Suspect subtle fracture of the left sacral ala. Moderate dextroscoliosis. Exaggerated lumbar lordosis. Multilevel moderately advanced degenerative spondylosis. Electronically signed by: Shanti Carrillo MD, DABR 03/07/24 00:10 AM Abdomen/Pelvis CT 03/06/24 19:07 Exam(s): CT ABDOMEN + PELVIS With Contrast IV Amt: 90 ml optiray 320 EXAM: CT Abdomen and Pelvis With Intravenous Contrast CLINICAL HISTORY: Reason for exam: Trauma. TECHNIQUE: Axial computed tomography images of the abdomen and pelvis with intravenous contrast. CTDI is 26.96 mGy and DLP is 691.25 mGy-cm. Automated exposure control was utilized for the study. A dose lowering technique was utilized adhering to the principles of ALARA. CONTRAST: Patient received 90 ml optiray 320 of IV contrast COMPARISON: None. FINDINGS: A large size electronic battery pack/metallic Device over the mid ventral abdominal wall. Patient's right upper left over the mid/lower abdomen. Diagnostic sensitivity of the exam is markedly hampered/reduced by motion and beam hardening artifacts. Lung bases: Concurrently performed CT chest is reported separately. ABDOMEN: Liver: Unremarkable. Mildly dilated intrahepatic bile ducts. Gallbladder and bile ducts: Unremarkable. No calcified stones. No ductal dilation. Pancreas: Unremarkable as visible.. Spleen: No splenomegaly. Adrenals: Unremarkable. No mass. Kidneys and ureters: No discernible solid mass. No hydronephrosis. Stomach and bowel: A moderately large size hiatal hernia. There is likely mucosal thickening of the fluid/gas filled normal caliber small bowel (series 1700 image 36). Gas/stool filled mild/moderately distended large bowel. There is irregularly lobulated abnormal appearing wall thickening of a moderately distended rectum, suspicious of malignancy (series 17 image 246, series 1700 image 45). PELVIS: Appendix: Not visualized. No obvious acute findings in the region. Bladder: Uniform mild bladder wall thickness. No mass. Reproductive: Likely a lobulated anteverted atrophic uterus present (series 1701, image 62). ABDOMEN and PELVIS: Intraperitoneal space: Unremarkable. No free air. No significant fluid collection. Bones/joints: Diffuse osseous demineralization. Postsurgical thoracolumbosacral spine with posterior fusion instrumentation. Multilevel degenerative spondylosis. Right proximal femur orthopedic instrumentation.. Hip osteoarthrosis. Soft tissues: Lower abdominal/pelvic wall edema/anasarca. Vasculature: Diffuse calcified atherosclerosis of the aortoiliac vasculature and branch vessels. No abdominal aortic aneurysm. Lymph nodes: No enlarged lymph nodes.. IMPRESSION: A markedly limited/nondiagnostic exam. A moderately large size hiatal hernia. Possibly mucosal thickening of fluid/gas filled normal caliber small bowel loops/enteritis. Clinical correlation advised Gas/stool filled mild/moderately distended large bowel loops. Irregular lobulations/abnormal wall thickening of a moderately distended rectum, suspicious of malignancy. Recommend follow-up. Additional findings as described above. Electronically signed by: Shanti Carrillo MD, DABR 03/06/24 22:[address] 03/06/24 19:07 Exam(s): CT C SPINE EXAM: CT Cervical Spine Without Intravenous Contrast CLINICAL HISTORY: Reason for exam: Trauma. TECHNIQUE: Axial computed tomography images of the cervical spine without intravenous contrast. CTDI is 16.98 mGy and DLP is 717.98 mGy-cm. Automated exposure control was utilized for the study. A dose lowering technique was utilized adhering to the principles of ALARA. COMPARISON: CT cervical spine: 11/22/2023 FINDINGS: Vertebrae: C4 vertebral 3.5 mm of anterolisthesis. C7 vertebral 3 mm anterolisthesis. No acute fracture. Discs/spinal canal/neural foramina: Redemonstrates advanced multilevel degenerative disc/endplate and posterior elements spondylosis with variable degrees of neuroforaminal and central canal stenosis. Soft tissues: Unremarkable. Other findings: Pulmonary biapical pleural parenchymal scarring. . IMPRESSION: No significant abnormalities post trauma. . Electronically signed by: Shanti Carrillo MD, DABR 03/06/24 21:[address] 03/06/24 19:07 Exam(s): CT CHEST With Contrast IV Amt: 90 ml optiray 320 EXAM: CT Chest With Intravenous Contrast CLINICAL HISTORY: Reason for exam: Trauma. TECHNIQUE: Axial computed tomography images of the chest with intravenous contrast. CTDI is 11 mGy and DLP is 311 mGy-cm. Automated exposure control was utilized for the study. A dose lowering technique was utilized adhering to the principles of ALARA. CONTRAST: Patient received 90 ml optiray 320 of IV contrast COMPARISON: CT chest: 11/22/2023 FINDINGS: Motion-induced image degradation limits anatomical details. Lungs: Central airways are patent. Bilateral diffuse bronchial wall thickening. Bilateral lower lung lobes posteriorly consolidation/atelectasis and surrounding interstitial opacities. Pleural space: Moderate volume bilateral pleural effusions RT>LT. No pneumothorax. Heart: Borderland/mild cardiomegaly. Thickly calcified mitral valve annulus. No significant pericardial effusion. No significant coronary artery calcifications. Bones/joints: Osteopenia. A T8 vertebral superior endplate mild/moderate chronic compression fracture . No acute fracture. No dislocation. Degenerative changes of the spine. Increased thoracic kyphosis. Postsurgical thoracolumbar spine. A nondisplaced old fracture of the right third rib posteriorly. Soft tissues: Unremarkable. Vasculature: Unremarkable. No thoracic aortic aneurysm. Lymph nodes: Multiple calcified left hilar lymph nodes in the left lower lung lobe calcified nodules/granulomas. No lymphadenopathy by CT size criteria... IMPRESSION: Moderate volume bilateral new pleural effusions with overlying consolidation/atelectasis and corresponding interstitial infiltrates RT>LT Mild cardiomegaly. A nondisplaced old fracture of the right third rib posteriorly. A T8 vertebral superior endplate mild/moderate chronic compression/fracture seen similar to the prior exam. Electronically signed by: Shanti Carrillo MD, DABSherron 03/06/24 23:[address] 03/06/24 19:07 Exam(s): CT FACIAL Without Contrast EXAM: CT Maxillofacial Without Intravenous Contrast CLINICAL HISTORY: Reason for exam: Trauma. TECHNIQUE: Axial computed tomography images of the face without intravenous contrast. CTDI is 26.96 mGy and DLP is 291.25 mGy-cm. Automated exposure control was utilized for the study. A dose lowering technique was utilized adhering to the principles of ALARA. COMPARISON: None. FINDINGS: Motion-induced image degradation. Bones/joints: There is a right nasal bone fracture with angulation. No other acute facial bone fracture seen. Bilateral TMJ osteoarthritis. Soft tissues: Unremarkable. Orbits: Unremarkable. Sinuses: Unremarkable. No air-fluid levels.. IMPRESSION: Right nasal bone fracture. Otherwise no significant abnormalities post trauma. . Electronically signed by: Shanti Carrillo MD, DABR 03/06/24 23:[address] 03/06/24 19:07 Exam(s): CT HEAD Without Contrast EXAM: CT Head Without Intravenous Contrast CLINICAL HISTORY: Reason for exam: trauma. TECHNIQUE: Axial computed tomography images of the head/brain without intravenous contrast. CTDI is 65.68 mGy and DLP is 1098.96 mGy-cm. Automated exposure control was utilized for the study. A dose lowering technique was utilized adhering to the principles of ALARA. COMPARISON: CT brain: 11/22/2023 FINDINGS: Extensive motion/beam hardening artifact limits the sensitivity of the exam. Brain: Redemonstrates a large size encephalomalacia involving left chávez radiata with exvacuo-dilatation of the left lateral ventricle/ventriculomegaly. No acute intracranial hemorrhage or midline shift of structures. No abnormal extra-axial fluid collections. Moderate cerebral atrophy with widening of the extra-axial spaces. Basilar cisterns are patent.. Bones/joints: Unremarkable. No acute fracture. Soft tissues: Unremarkable. Sinuses: No acute sinusitis. Mastoid air cells: Unremarkable as visualized. No mastoid effusion.. IMPRESSION: No conclusive evidence of acute intracranial abnormality. . Electronically signed by: Shanti Carrillo MD, DABR 03/06/24 22:[address] 03/06/24 19:07 Exam(s): CT T SPINE IV Amt: 90 ml optiray 320 EXAM: CT Thoracic Spine With Intravenous Contrast CLINICAL HISTORY: Reason for exam: trauma. TECHNIQUE: Axial computed tomography images of the thoracic spine with intravenous contrast. CTDI is 16.98 mGy and DLP is 717 mGy-cm. Automated exposure control was utilized for the study. A dose lowering technique was utilized adhering to the principles of ALARA. CONTRAST: Patient received 90 ml optiray 320 of IV contrast COMPARISON: None. FINDINGS: Diagnostic sensitivity of the exam is reduced by motion artifact. Vertebrae: Diffuse osseous demineralization. T8 vertebral superior endplate anterior wedge compression of indeterminant age (series 1801, image 33).. Otherwise no thoracic vertebral acute fracture is seen. No segmental malalignment. Increased thoracic kyphosis. Posteriorly nondisplaced nonunited fracture of the right second rib (series 302 image 13). Discs/spinal canal/neural foramina: No acute findings. No spinal canal stenosis. Soft tissues: Unremarkable. Other findings: Demonstrates moderate volume bilateral pleural effusions with overlying consolidation/atelectasis and surrounding infiltrates in the lower lobes. Cardiomegaly. Multiple calcified left hilar lymph nodes and left lower lobe calcified nodules/granulomas. IMPRESSION: Suboptimally evaluated due to motion artifact. A T8 vertebral superior endplate anterior wedge compression/fracture of indeterminant age. Otherwise no significant abnormalities post trauma. . Electronically signed by: Shanti Carrillo MD, DABR 03/06/24 22:48 PM Tibia/Fibula X-Ray 03/06/24 19:08 Exam(s): XR RIGHT TIB/FIB, 2 views EXAM: XR Right Tibia and Fibula, 2 Views CLINICAL HISTORY: Reason for exam: Trauma. TECHNIQUE: Frontal and lateral views of the right tibia and fibula. COMPARISON: None. FINDINGS: Bones/joints: Diffuse osseous demineralization. Intramedullary anaid/nail fixation of the visualized right femur. There is a minimally displaced intra-articular fracture of the lateral corner of the tibial plateau. Laterally mild soft tissue swelling of the right knee. Tricompartmental moderate right knee osteoarthrosis. Suspect laterally a subtle nondisplaced cortical fracture of the lateral malleolus. No dislocation. Soft tissues: Soft tissue swelling of the ankle more laterally. No radiopaque foreign body.. IMPRESSION: Osteopenia. A mildly displaced intra-articular fracture of the lateral corner of the right proximal tibia. Likely a subtle nondisplaced cortical fracture laterally of the lateral malleolus. Periarticular soft tissue swelling more laterally. Tricompartmental right knee osteoarthrosis. . Electronically signed by: Shanti Carrillo MD, DABR 03/06/24 23:56 PM Ankle X-Ray 03/07/24 07:19 EXAM: XR ankle RT min 3V routine CLINICAL HISTORY: RIGHT LOWER LEG TRAUMA RIGHT KNEE AND ANKLE PAIN. TECHNIQUE: X-ray images of the right ankle were obtained in anteroposterior (AP), lateral, and mortise projections. COMPARISON: X-ray dated 11/03/2023. FINDINGS: Bone Structure: Status post back slab/plaster cast limiting fine details. Reduced mineralization of the imaged bony structures seen, suggests osteopenia with prominent trabeculae. Bone normal aligned. No evidence of fracture or dislocation. No osseous lesions or abnormalities were identified. Generazlied osteopenia. Joint Spaces: Joint spaces are normal. No evidence of joint effusion or subluxation. Soft Tissues: Soft tissues appear normal and unremarkable. No soft tissue swelling, calcifications, or foreign bodies noted. Additional Findings: Slight spurring of the hindfoot bone seen suggest insignificant/early degenerative changes IMPRESSION: 1. Overlying cast is limiting fine bony details. No evidence of acute fracture, dislocation, or significant soft tissue abnormalities. 2. Osteopenia. Disclaimer: A subtle bone abnormality or occult fracture may not be readily apparent on X-rays, thus clinical correlation and further imaging including follow-up 3D CT, MRI, or follow-up X-rays are advised as needed. Electronically signed by Misael Shin 03-07-2024 08:54 AM Knee X-Ray 03/07/24 07:19 EXAM: XR knee RT 1 or 2V routine CLINICAL HISTORY: RIGHT LOWER LEG TRAUMA RIGHT KNEE AND ANKLE PAIN. TECHNIQUE: X-ray images of the right knee were obtained in 2 views: Anteroposterior (AP) and lateral projections. COMPARISON: X-ray dated 09/28/2023. FINDINGS: Status post back slab/ plaster cast. Visible distal femur diaphysis shows instrumentation from earlier surgery, no periprosthetic lucencies seen to suggest loosening or infection. Bone Structure: Reduced mineralization of the imaged bones seen suggests osteopenia. Bone structure is normal and well-aligned. No evidence of acute fractures or dislocations. No osseous lesions or abnormalities were identified. Joint Spaces: Joint spaces are narrowed in medial and lateral tibiofemoral and patellofemoral compartments with sub articular sclerosis. Articular Surfaces: Intact. Patella: Patella is normal in position and alignment. No evidence of patellar dislocation or subluxation. Soft Tissues: Periarticular soft tissues appear normal and unremarkable. No soft tissue swelling, calcifications, or foreign bodies noted. IMPRESSION: 1. No evidence of acute fractures, or dislocations. 2. Tricompartmental degenerative changes. 3. Osteopenia. 4. Visible distal femur diaphysis shows instrumentation from earlier surgery, no periprosthetic lucencies seen to suggest loosening or infection. 5. Current radiograph remains interval stable since the prior X-ray of 09/28/2023. Disclaimer: A subtle bone abnormality or fracture may not be readily apparent on X-rays, thus clinical correlation and further imaging including follow-up CT, MRI, or follow-up X-rays are advised as needed. Electronically signed by Misael Shin 03-07-2024 08:44 AM
[2024-03-08 10:51] LABS: Albumin Globulin Ratio 0.7 (0.9-2); Albumin Level 2.7 gm/dl (3.4-5.0); BUN Creatinine Ratio 17.2 (10-20); Bilirubin,Total 0.3 mg/dl (0.2-1.0); Calcium 8.4 mg/dl (8.6-10.3); Creatinine Clr Calc Pharmacy 133.4 ml/min; Globulin 3.8 gm/dl (2.5-4.0); Magnesium 1.7 mg/dl (1.7-2.4); Potassium 3.4 mmol/L (3.5-5.1); Total Protein 6.5 gm/dl (6.0-8.3)
[2024-03-08 11:11] LABS: Hypochromasia Present; Polychromasia 1+
[2024-03-08 11:14] LABS: INR 1.2 (0.9-1.1); Partial Thromboplastin Ratio 1.2; Partial Thromboplastin Time 32 Seconds (21-31); Prothrombin Time 12.4 Seconds (9.0-12.0)
--- NOTE | 2024-03-08 11:36 | Pharmacy Report ---
Pharmacy PK ABX Note - Date of Service March 08, 2024 - Assessment and Plan Assessment 03/08: * Day #2 of Vancomycin and Meropenem. * Remains afebrile and without leukocytosis. Renal fxn stable. * 1 of 2 sets from blood cultures is growing Staph aureus which is mecA/C and MREJ negative per BCID2 panel which means this is MSSA. Urine culture positive for Streptococcus gallalyticus. * Vanc level was 10.5 mcg/mL this morning. This translates to an AUC/TAMY at steady state of 408 and only has 55% chance of maintaining an AUC/TAMY > 400. Therefore, opting to increase dose starting at noon today. * Recommendations: will recommend to primary team that meropenem be discontinued at this time as vancomycin will cover bacteremia and UTI (although, organism is urine may represent contamination rather than true infection). Should a pulmonary source be ruled out, transitioning to daptomycin will provide more predictable/achievable PK/PD parameters. Lastly, given MSSA bacteremia of unknown source in a patient with an intrathecal pain pump, would recommend an infectious disease consult. 03/07: 68 year old F receiving Vancomycin and Meropenem for treatment of HAP/UTI. * Day #1 of antimicrobial therapy. 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 * Labs/Vitals: Afebrile and without leukocytosis. Lactate normal. SCr at baseline. * Micro: Urine and Blood cultures pending. MRSA nasal swab negative. * Imaging: Bilateral parapneumonic effusions, right greater than left, per radiology. * Recommendations: Given MRSA nasal swab is negative could consider disconti nuation of vancomycin at this time. Will reach out to provider. However, would not be opposed to continuing for 24 hours given possible UTI as well. Given beta-lactam allergy, meropenem is appropriate at this time. Could consider change to levofloxacin which has an oral option available when discharge is ready. Plan Vancomycin * Current regimen: 750 mg IV every 8 hours * Random level obtained 03/08/24 resulted as 10.3 mcg/mL. This is predicted to achieve target AUC/TAMY of 400-600 mg/L.hr * However, this translates to an AUC/TAMY at steady state of 408 and only has 55% chance of maintaining an AUC/TAMY > 400. * Therefore, change to 1000 mg IV every 8 hours * Predicted AUC at steady state: 543 mg/L.hr * Repeat random level ordered for: 03/09/24 Meropenem * 500 mg IV every 6 hours Pharmacy will continue to follow and will adjust dose/frequency as necessary. Thank you. Pharmacy has transitioned to AUC monitoring for vancomycin. AUC/TAMY is the preferred PK/PD target and is associated with decreased risk of nephrotoxicity compared to traditional trough targets.
[2024-03-08] MEDS: IRON SUCROSE 300 MG in SODIUM CHLORIDE 0.9% 250 ML IV ONE (11:58)
[2024-03-08] MEDS: VANCOMYCIN HCL 1,000 MG/270 ML BAG IV SCH (12:04)
[2024-03-08] MEDS: VANCOMYCIN LEVEL ONE (12:04)
--- NOTE | 2024-03-08 12:09 | XRay Report ---
XR chest 1V portable CLINICAL HISTORY: recheck effusions COMPARISON STUDY: Chest CT March 06, 2024. FINDINGS: This exam is mildly compromised given difficulty positioning. Postoperative findings within the spine are noted. Old right-sided rib fractures are noted as well as old fractures of the right c lavicle and scapula. There is no pneumothorax. [id number] bilateral pleural effusions with ass ociated bibasilar opacities are similar to prior CT. Pulmonary edema has mildly progressed. Cardiac m ediastinal fluid is stable. IMPRESSION: 1. [id number] bilateral pleural effusions with associated bibasilar opacities, similar to prio r CT. 2. Progression of pulmonary edema. ACT 112: Negative or not required by law. Electronically signed by: Conner Anand M.D. 03/08/2024 12:07 PM
--- NOTE | 2024-03-08 12:19 | Gastrointestinal Consultation ---
Date of Consultation March 08, 2024 Assessment & Plan (1) Abnormality of rectum: -Could offer flex sig towards the end of the week for further evaluation of rectal abnormality. Did communicate with hospitalist regarding pulmonary findings so that patient may be optimized for any anesthesia moving forward. Will obtain abdominal xray in the morning. Supervising Physician Co-Signing Physician Notes Patient examined at the bedside. She has a severe expressive aphasia. Though seems to understand spoken word. Cooperates with exam. Seems to acknowledge that there is some abdominal discomfort. However exam relatively benign. Abdomen does not appear significantly distended. Bowel sounds present. CT suggest rectal mass with obstruction. Digital rectal examination however did not reveal a mass. There was some scybalous type stool in the rectum. This was without impaction. No mass palpable to the extent of digital insertion. Plan repeat KUB abdominal series tomorrow potential flexible sigmoidoscopy on 03/10/2024. Power of contracts attorney states they wish workup further if this indeed is a rectal cancer Agree with above notes as outlined by the nurse practitioner History of Present Illness Reason for Consultation: Abnormal CT rectum Attending Physician: Evan Jerry MD History of Present Illness Patient is a 68-year-old female with a past medical history including traumatic brain injury with delayed recovery, fractured scapula, multiple fractures of right sided ribs, frequent falls, generalized weakness, malnutrition, seizure history, hyponatremia, aphasia due to disease, executive function deficit, lumbar postlaminectomy syndrome, and urinary incontinence. The patient underwent went a significant workup at [facility] in [place] where she had been treated for several traumas. She continued to issues with executive functioning, has been seen by palliative care, and presently living at [facility]. She is currently hospitalized with a UTI, thrombocytosis, as well as bilateral pleural effusions & pulmonary edema. She had a CT scan of the abdomen/pelvis that suggested a possible rectal malignancy. GI has been consulted for this issue. Due to her expressive aphasia she has difficulty participating in an evaluation. Last colonoscopy in [address] findings as follows: IMPRESSION: A markedly limited/nondiagnostic exam. A moderately large size hiatal hernia. Possibly mucosal thickening of fluid/gas filled normal caliber small bowel loops/enteritis. Clinical correlation advised Gas/stool filled mild/moderately distended large bowel loops. Irregular lobulations/abnormal wall thickening of a moderately distended rectum, suspicious of malignancy. Recommend follow-up. Additional findings as described above. Allergies Allergy/AdvReac Type Severity Reaction Status Date / Time cephalexin Allergy Severe Anaphylaxis Verified 02/25/24 10:29 Penicillins AdvReac Mild nausea Verified 02/25/24 10:29 Home Medications Medication Instructions Recorded Confirmed Type baclofen 10 mg tablet 10 mg PO DAILY PRN spasms #90 tabs 12/01/22 03/07/24 Rx celecoxib 200 mg capsule 200 mg PO QAM #90 caps 03/20/23 03/07/24 Rx clopidogrel 75 mg tablet 75 mg PO HS #90 tabs 03/20/23 03/07/24 Rx atorvastatin 10 mg tablet 10 mg PO 3XWK 09/28/23 03/07/24 History duloxetine 30 mg capsule,delayed 30 mg PO DAILY #30 caps 11/12/23 03/07/24 Rx release (Cymbalta) cholecalciferol (vitamin D3) 25 25 mcg PO DAILY 02/18/24 03/07/24 History mcg (1,000 unit) capsule docusate sodium 100 mg capsule 100 mg PO BID 02/18/24 03/07/24 History enoxaparin 30 mg/0.3 mL 30 mg subcut BID 02/18/24 03/07/24 History subcutaneous syringe (Lovenox) lidocaine 4 % topical patch 1 patch topical DAILY 02/18/24 03/07/24 History (Aspercreme (lidocaine)) ondansetron HCl 4 mg tablet 4 mg PO Q4H PRN Nausea And Vomiting 02/18/24 03/07/24 History sennosides 8.6 mg tablet (Senokot) 17.2 mg PO BID 02/18/24 03/07/24 History Wheelchair (Manual) #1 ea 02/25/24 02/25/24 Rx denosumab 60 mg/mL subcutaneous 60 mg subcut UD 03/07/24 03/07/24 History syringe (Prolia) morphine concentrate 100 mg/5 mL 10 mg PO Q1H PRN SOB/Pain 03/07/24 03/07/24 History (20 mg/mL) oral solution sodium chloride 1 gram tablet 2,000 mg PO BID 03/07/24 03/07/24 History tramadol 50 mg tablet 50 mg PO Q8H PRN Severe Pain 03/07/24 03/07/24 History (Scale Score 7-10) Patient History Medical History Headache, post-traumatic, acute Vascular dementia B12 deficiency expressive aphasia Aphasia, post-stroke Hemiparesis affecting right side as late effect of cerebrovascular accident Aphasia as late effect of cerebrovascular accident History of cerebrovascular accident from left carotid artery occlusion involving left middle cerebral artery territory Hemiplegia Right side > wears AFO brace on RLE, no control of right arm History of CVA (cerebrovascular accident) 1998 large left MCA territory in setting of occluded left carotid potentially related to oral contraception at that time > chronic spastic right hemiparesis, flaccid upper limb and mild to moderate expressive aphasia > on plavix > follows with [place] [facility] Fall External constriction of left ring finger, initial encounter Sciatica Osteoporosis with fracture Hyperplastic colon polyp Ring or other jewelry causing external constriction, initial encounter Fall Closed femur fracture Memory loss Left carotid artery occlusion Vasovagal syncope if not laying flat during blood draws Encounter for pre-operative examination Memory problem History of depression 1998 per pt Hypertension controlled, stable per pt Chronic constipation with overflow 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 (CVA) 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 (CVA) CVA (cerebral vascular accident) Laceration of eyebrow, right Head trauma Osteoporosis Stroke Surgical History Presence of intrathecal pump Family history of reaction to anesthesia Mother: slow to wake History of gynecologic surgery Labial "removal" History of back surgery Lumbar fusion x2 History of colonoscopy History of tooth extraction History of tonsillectomy Family History Father Cancer Family history of esophageal cancer Other No pertinent family history Denies family history of Ovarian cancer Prostate cancer Diabetes Myocardial infarction Breast cancer Colorectal cancer Hypertension Social History Smoking Status: Never smoker Tobacco Type: Declines Age Started Using Tobacco: 12; Age Quit Using Tobacco: 22; packs per day: 0.1; Second Hand Exposure: No; Do You Dip or Chew Tobacco: No; Hx Alcohol Use: No Hx Substance Use: No Preferred Language: Mauritian Communication Ability: Impaired Communication Ability Comment: Expressive aphasia from previous CVA 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 Beliefs That Will Affect Care: None marital status: Single Current Living Situation: [facility] Current Living Situation Comment: [facility] current occupational status: retired How many Children do You have: 0 Feels Safe at Home: Yes Childhood Exposure to Second-Hand Smoke: Yes caffeine: Yes (coffee) Dental Care, Regularly: Yes Physical Activity Frequency: Daily Seatbelt Use: always Sunscreen Use: Yes Assistive Devices: Wheelchair Review of Systems Review of Systems: Other (expressive aphasia) Results & Data Vital Signs (Past 12 Hours) Vital Signs Temp Pulse Pulse Resp BP Pulse Ox O2 Del Method 03/08/24 07:30 36.9 C 95 H 18 139/78 93 Room Air 03/08/24 05:15 89 03/08/24 03:04 36.8 C 88 18 135/73 92 Room Air PG Care Time/CCT Total # of Minutes Spent Total Time Spent with Patient: Total time spent is greater than 50% in coordination of care (as documented) at patient's floor/unit and/or counseling patient: Coding Level of Care Code 08810 IN/OBS CONSULT LVL 3,45M Diagnoses Abnormality of rectum K62.9
--- NOTE | 2024-03-08 13:30 | Orthopedic Consultation ---
Date of Consultation March 08, 2024 Assessment & Plan (1) Fracture, thoracic vertebra, compression: At this time if this were an acute fracture I would not recommend any bracing would just recommend mobilization with physical therapy when able to. She is not complaining of pain and is nontender to palpation or percussion over this region. I would not pursue an MRI at this point as it would not change the treatment plan. Dr. Townsend and I have reviewed the films for continued pain control, physical therapy, and GI and DVT prophylaxis are recommended. Please contact us if there are any other questions or concerns. History of Present Illness Attending Physician: Evan Jerry MD History of Present Illness Patient resides in assisted living. She had a traumatic brain injury with delayed recovery. She has had multiple falls and presented to the emergency room with lateral malleolus and tibial fractures. She is not a reliable historian and has a hard time expressing herself due to her brain injury. They did CT her multiple levels. She has had extensive back surgery with what appears to be a T10 to pelvis fusion. They noted a compression deformity the superior endplate of T8 and we are consulted for this. Patient denies any pain in the back. She denies any radicular complaints. Allergies Allergy/AdvReac Type Severity Reaction Status Date / Time cephalexin Allergy Severe Anaphylaxis Verified 02/25/24 10:29 Penicillins AdvReac Mild nausea Verified 02/25/24 10:29 Home Medications Medication Instructions Recorded Confirmed Type baclofen 10 mg tablet 10 mg PO DAILY PRN spasms #90 tabs 12/01/22 03/07/24 Rx celecoxib 200 mg capsule 200 mg PO QAM #90 caps 03/20/23 03/07/24 Rx clopidogrel 75 mg tablet 75 mg PO HS #90 tabs 03/20/23 03/07/24 Rx atorvastatin 10 mg tablet 10 mg PO 3XWK 09/28/23 03/07/24 History duloxetine 30 mg capsule,delayed 30 mg PO DAILY #30 caps 11/12/23 03/07/24 Rx release (Cymbalta) cholecalciferol (vitamin D3) 25 25 mcg PO DAILY 02/18/24 03/07/24 History mcg (1,000 unit) capsule docusate sodium 100 mg capsule 100 mg PO BID 02/18/24 03/07/24 History enoxaparin 30 mg/0.3 mL 30 mg subcut BID 02/18/24 03/07/24 History subcutaneous syringe (Lovenox) lidocaine 4 % topical patch 1 patch topical DAILY 02/18/24 03/07/24 History (Aspercreme (lidocaine)) ondansetron HCl 4 mg tablet 4 mg PO Q4H PRN Nausea And Vomiting 02/18/24 03/07/24 History sennosides 8.6 mg tablet (Senokot) 17.2 mg PO BID 02/18/24 03/07/24 History Wheelchair (Manual) #1 ea 02/25/24 02/25/24 Rx denosumab 60 mg/mL subcutaneous 60 mg subcut UD 03/07/24 03/07/24 History syringe (Prolia) morphine concentrate 100 mg/5 mL 10 mg PO Q1H PRN SOB/Pain 03/07/24 03/07/24 History (20 mg/mL) oral solution sodium chloride 1 gram tablet 2,000 mg PO BID 03/07/24 03/07/24 History tramadol 50 mg tablet 50 mg PO Q8H PRN Severe Pain 03/07/24 03/07/24 History (Scale Score 7-10) Patient History Medical History Headache, post-traumatic, acute Vascular dementia B12 deficiency expressive aphasia Aphasia, post-stroke Hemiparesis affecting right side as late effect of cerebrovascular accident Aphasia as late effect of cerebrovascular accident History of cerebrovascular accident from left carotid artery occlusion involving left middle cerebral artery territory Hemiplegia Right side > wears AFO brace on RLE, no control of right arm History of CVA (cerebrovascular accident) 1998 large left MCA territory in setting of occluded left carotid potentially related to oral contraception at that time > chronic spastic right hemiparesis, flaccid upper limb and mild to moderate expressive aphasia > on plavix > follows with [facility] Fall External constriction of left ring finger, initial encounter Sciatica Osteoporosis with fracture Hyperplastic colon polyp Ring or other jewelry causing external constriction, initial encounter Fall Closed femur fracture Memory loss Left carotid artery occlusion Vasovagal syncope if not laying flat during blood draws Encounter for pre-operative examination Memory problem History of depression 1998 per pt Hypertension controlled, stable per pt Chronic constipation with overflow 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 (CVA) 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 (CVA) CVA (cerebral vascular accident) Laceration of eyebrow, right Head trauma Osteoporosis Stroke Surgical History Presence of intrathecal pump Family history of reaction to anesthesia Mother: slow to wake History of gynecologic surgery Labial "removal" History of back surgery Lumbar fusion x2 History of colonoscopy History of tooth extraction History of tonsillectomy Family History Father Cancer Family history of esophageal cancer Other No pertinent family history Denies family history of Ovarian cancer Prostate cancer Diabetes Myocardial infarction Breast cancer Colorectal cancer Hypertension Social History Smoking Status: Never smoker Tobacco Type: Declines Age Started Using Tobacco: 12; Age Quit Using Tobacco: 22; packs per day: 0.1; Second Hand Exposure: No; Do You Dip or Chew Tobacco: No; Hx Alcohol Use: No Hx Substance Use: No Preferred Language: Albanian Communication Ability: Impaired Communication Ability Comment: Expressive aphasia from previous CVA Visual 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 She does not answer all questions appropriately. She has full strength with dorsiflexion and plantarflexion. With her roll to the side palpation of the mid and lower back produce no tenderness. She has full range of motion of the hips and knees. Abdomen soft and nontender her left calf is supple and nontender. Her sensations intact to light touch. Cardiovascular exam reveals no gross abnormalities her respirations are unlabor ed and regular. Results & Data Vital Signs (Past 12 Hours) Vital Signs Temp Pulse Pulse Resp BP Pulse Ox O2 Del Method 03/08/24 12:40 36.7 C 91 H 18 149/84 H 97 Room Air 03/08/24 07:30 36.9 C 95 H 18 139/78 93 Room Air 03/08/24 05:15 89 03/08/24 03:04 36.8 C 88 18 135/73 92 Room Air Diagnostic Findings CT scan of the thoracic and lumbar spine reveals hardware in place from T10 to the pelvis there is a mild compression deformity superior endplate of T8. There is no significant canal stenosis or retropulsed fragments. There is increased kyphosis in the thoracic spine in general fashion.
--- NOTE | 2024-03-08 14:02 | Pulmonary Consultation ---
Date of Consultation March 08, 2024 Assessment & Plan (1) Pleural effusion: (2) Abnormal chest CT: Plan CT chest 03/06/2024 personally reviewed: Small to moderate bilateral pleural effusion Dependent atelectasis bilateral lower lobes Hiatal hernia Calcified mediastinal lymph nodes with no significant mediastinal lymphadenopathy 2D echo 12/17/2023: --Bilateral pleural effusion SARS COVID-19 negative 02/25/2024 Albumin 2.7 -- MSSA bacteremia Plan as per primary team Plan: In/out: -700 since coming to the hospital The etiology for pleural effusion is likely hypoalbuminemia as well as possible HFpEF Very unlikely to have bilateral parapneumonic effusions Recommend continuing with diuretics to keep the patient negative balance She is not in any respiratory distress. Would recommend against any invasive procedure including thoracentesis Pulmonary will continue to follow Please note the above document was generated using voice recognition software. It may contain grammatical, syntax or spelling errors.Any formal questions or concerns about the content, text or information contained within the body of this dictation should be directly addressed to the provider for clarification. History of Present Illness Attending Physician: Evan Jerry MD History of Present Illness 68-year-old female was admitted to hospital s/p fall Past medical history: Status post lumbar laminectomy, traumatic brain injury with aphasia, seizure disorder Pulmonary consulted for pleural effusion At the time of examination patient was not in any respiratory distress She was saturating 95 to 96% on room air She was slow to answer but was trying to answer all the questions appropriately. Denied any chest pain, no shortness of breath Denied any cough No nausea or vomiting No unusual headache or blurry vision Patient is a poor historian, history was obtained partly from the patient as well as from the previous chart. Social history: Does have smoking history but quit long time ago Allergies Allergy/AdvReac Type Severity Reaction Status Date / Time cephalexin Allergy Severe Anaphylaxis Verified 02/25/24 10:29 Penicillins AdvReac Mild nausea Verified 02/25/24 10:29 Home Medications Medication Instructions Recorded Confirmed Type baclofen 10 mg tablet 10 mg PO DAILY PRN spasms #90 tabs 12/01/22 03/07/24 Rx celecoxib 200 mg capsule 200 mg PO QAM #90 caps 03/20/23 03/07/24 Rx clopidogrel 75 mg tablet 75 mg PO HS #90 tabs 03/20/23 03/07/24 Rx atorvastatin 10 mg tablet 10 mg PO 3XWK 09/28/23 03/07/24 History duloxetine 30 mg capsule,delayed 30 mg PO DAILY #30 caps 11/12/23 03/07/24 Rx release (Cymbalta) cholecalciferol (vitamin D3) 25 25 mcg PO DAILY 02/18/24 03/07/24 History mcg (1,000 unit) capsule docusate sodium 100 mg capsule 100 mg PO BID 02/18/24 03/07/24 History enoxaparin 30 mg/0.3 mL 30 mg subcut BID 02/18/24 03/07/24 History subcutaneous syringe (Lovenox) lidocaine 4 % topical patch 1 patch topical DAILY 02/18/24 03/07/24 History (Aspercreme (lidocaine)) ondansetron HCl 4 mg tablet 4 mg PO Q4H PRN Nausea And Vomiting 02/18/24 03/07/24 History sennosides 8.6 mg tablet (Senokot) 17.2 mg PO BID 02/18/24 03/07/24 History Wheelchair (Manual) #1 ea 02/25/24 02/25/24 Rx denosumab 60 mg/mL subcutaneous 60 mg subcut UD 03/07/24 03/07/24 History syringe (Prolia) morphine concentrate 100 mg/5 mL 10 mg PO Q1H PRN SOB/Pain 03/07/24 03/07/24 History (20 mg/mL) oral solution sodium chloride 1 gram tablet 2,000 mg PO BID 03/07/24 03/07/24 History tramadol 50 mg tablet 50 mg PO Q8H PRN Severe Pain 03/07/24 03/07/24 History (Scale Score 7-10) Patient History Medical History Headache, post-traumatic, acute Vascular dementia B12 deficiency expressive aphasia Aphasia, post-stroke Hemiparesis affecting right side as late effect of cerebrovascular accident Aphasia as late effect of cerebrovascular accident History of cerebrovascular accident from left carotid artery occlusion involving left middle cerebral artery territory Hemiplegia Right side > wears AFO brace on RLE, no control of right arm History of CVA (cerebrovascular accident) 1999 large left MCA territory in setting of occluded left carotid potentially related to oral contraception at that time > chronic spastic right hemiparesis, flaccid upper limb and mild to moderate expressive aphasia > on plavix > follows with [facility] neuro Fall External constriction of left ring finger, initial encounter Sciatica Osteoporosis with fracture Hyperplastic colon polyp Ring or other jewelry causing external constriction, initial encounter Fall Closed femur fracture Memory loss Left carotid artery occlusion Vasovagal syncope if not laying flat during blood draws Encounter for pre-operative examination Memory problem History of depression 1998 per pt Hypertension controlled, stable per pt Chronic constipation with overflow 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 (CVA) 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 (CVA) CVA (cerebral vascular accident) Laceration of eyebrow, right Head trauma Osteoporosis Stroke Surgical History Presence of intrathecal pump Family history of reaction to anesthesia Mother: slow to wake History of gynecologic surgery Labial "removal" History of back surgery Lumbar fusion x2 History of colonoscopy History of tooth extraction History of tonsillectomy Family History Father Cancer Family history of esophageal cancer Other No pertinent family history Denies family history of Ovarian cancer Prostate cancer Diabetes Myocardial infarction Breast cancer Colorectal cancer Hypertension Social History Smoking Status: Never smoker Tobacco Type: Declines Age Started Using Tobacco: 12; Age Quit Using Tobacco: 22; packs per day: 0.1; Second Hand Exposure: No; Do You Dip or Chew Tobacco: No; Hx Alcohol Use: No Hx Substance Use: No Preferred Language: Italian Communication Ability: Impaired Communication Ability Comment: Expressive aphasia from previous CVA Visual Impairment: Limited Truck Guard 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 Beliefs That Will Affect Care: None marital status: Single Current Living Situation: Correction Current Living Situation Comment: [place] current occupational status: retired How many Children do You have: 0 Feels Safe at Home: Yes Childhood Exposure to Second-Hand Smoke: Yes caffeine: Yes (coffee) Dental Care, Regularly: Yes Physical Activity Frequency: Daily Seatbelt Use: always Sunscreen Use: Yes Assistive Devices: Wheelchair Review of Systems 2 Review of Systems: Unobtainable due to cognitive status Physical Exam 2 Physical Exam: Constitutional: No acute distress HEENT: EOMI, PERRLA Respiratory system: Decreased air entry bilaterally, no wheeze, no rhonchi, mild crackles bilateral lower lobes CVS: S1-S2 positive, tachycardia Abdomen: Soft, nontender, nondistended, positive bowel sounds x4 Extremities: +2 pulses bilaterally radialis/ dorsalis pedis, no cyanosis, minimal pitting edema bilateral lower extremity Neuro: Awake alert oriented x3, right-sided hemiparesis Psych: Normal mood and affect G/U: Positive [place] Skin: no rashes, warm and dry Lymphatic: no cervical or axillary lymphadenopathy Results & Data Results & Data Vital Signs (Past 12 Hours) Vital Signs Temp Pulse Pulse Resp BP Pulse Ox O2 Del Method 03/08/24 12:40 36.7 C 91 H 18 149/84 H 97 Room Air 03/08/24 07:30 36.9 C 95 H 18 139/78 93 Room Air 03/08/24 05:15 89 03/08/24 03:04 36.8 C 88 18 135/73 92 Room Air Laboratory Results 03/08/24 10:10 03/08/24 10:10 PG Care Time/CCT Total # of Minutes Spent Total Time Spent with Patient: Total time spent is greater than 50% in coordination of care (as documented) at patient's floor/unit and/or counseling patient: Coding Level of Care Code 44219 INT INP/OBS CARE 3/75MIN Diagnoses Pleural effusion J90 Abnormal chest CT R93.89
--- NOTE | 2024-03-08 14:09 | XCELERA ---
[id number]
--- NOTE | 2024-03-08 15:30 | Infectious Disease Consult ---
Date of Consultation March 08, 2024 Assessment & Plan (1) Fracture, thoracic vertebra, compression: (2) Abnormality of rectum: (3) Right ankle sprain: (4) Closed fracture of nasal bone: (5) Lateral malleolar fracture: (6) Thrombocytosis: (7) Pneumonia: (8) Bacteremia due to Staphylococcus: Plan This is a 68-year-old female with a past medical history of traumatic brain injury, fractured scapula, multiple fractures of the right rib, frequent falls, seizures, aphasia, executive function deficit, lumbar post laminectomy syndrome, urinary incontinence, CVA with residual R hemiparesis who presents from a custodial facility after she was found on the ground between the toilet and the wall of the facility for an unknown period of time. Patient was more confused from her baseline. Patient has expressive aphasia and cannot provide a history. History obtained from chart review. Apparently she was found to have redness and swelling of the right side of her face and right lower extremity. Patient does not remember falling. She is unable to tell me why she presented to the hospital. She tells me that she has back pain and R leg pain .. In the ED, temperature 37.3, pulse 109, RR 18, BP 120/86, O2 sats 94% on room air. Labs: WBC 9.53, hemoglobin 8.6, hematocrit 28.1, platelets 1038, sodium 129, BUN 6, creatinine 0.36, AST 10, ALT 5. Urinalysis> 50 WBC. Negative MRSA screen. COVID testing negative. Blood cultures with MSSA in 2/4 bottles. Urine culture with a streptococcus gallalyticus Ct scan of the lumbar spine shows postsurgical thoraco lumbar spine with possible L4 and L5 vertebral fractures and subtle fracture of the left sacral ala. CT scan of the thoracic spine shows a T8 vertebral endplate wedge compression/fracture of unknown age. There is no significant abnormalities of the cervical spine. R Tib-fib x-ray shows a mildly displaced intra-articular fracture of the lateral corner of the right proximal tibia. Subtle nondisplaced cortical fracture laterally of the lateral malleolus. R Ankle x-ray shows no evidence of acute fracture , however overlying cast is limiting bony details. R Knee x-ray with no evidence of acute fracture. Visible distal femur diaphysis shows instrumentation from earlier surgery without periprosthetic lucencies seen to suggest loosening or infection. CT chest shows moderate volume bilateral pleural effusions with overlying consolidations and corresponding interstitial infiltrates right greater than left. Nondisplaced old fracture of the right third rib. A T8 vertebral chronic compression fracture. CT of the face shows a right nasal bone fracture. Head CT with no evidence of acute abnormality. CT abdomen pelvis shows a moderately large sized hiatal hernia. Possible mucosal thickening of fluid/gas filled normal caliber small bowel loops/enteritis. Gas/stool-filled mild distended large bowel loops. Irregular lobulations/abdominal wall thickening of a moderately distended rectum suspicious for malignancy. She has been evaluated by orthopedics, spine surgery, heme-onc, and GI . Her RLE was dressed and casted. No surgical intervention planned to LE or spine. She may undergo a flex sig later in the week. She is receiving IV vancomycin. She has a history of PCN and cephalexin allergy. ID consulted for MSSA bacteremia. Microbiology: Urine culture 03/06 > 100 K Streptococcus gallalyticus Blood culture 03/07 2/ bottles positive for MSSA (no resistance genes on BC ID) Antibiotics Meropenem 03/06 - 03/08 Levaquin 03/06 Vancomycin 03/07ongoing #MSSA bacteremia #Streptococcus gallalyticus ? UTI # Multiple fractures acute and chronic -lateral malleolus ,tibial, l4, l5 fracture, ? sacral ala fracture, T8 compression wedge fracture ,R Nasal fracture #B/L pleural effusion with associated opacities #Irregular lobulations/wall thickening of distended rectum: r/o malignancy #Spinal hardware # Baclofen pump #R femur hardware/instrumentation # Thrombocytosis # Cephalexin allergy : anaphylaxis # PCN 'Allergy" : nausea Per chart - pt states her lips swell however Discussion: The source of the MSSA bacteremia is unknown. She has multiple prosthetics/instrumentation: Spinal hardware, right femur hardware, baclofen pump. Exam significant for tenderness to palpation of BL flank and lower spine. She complains of back pain and right lower extremity pain. Pain may be secondary to chronic versus new fractures or developing infection. Right lower extremity is in a cast and I am unable to fully evaluate. Although she fell, there is no khadar cellulitis on the skin or open wounds that are apparent. She has BL pleural effusions with opacities, so Pneumonia is possible. Additionally, a rectal abnormality is seen on imaging--> malignancy needs to be ruled out especially in the setting of multiple fractures. However, I would not expect MSSA in the GI tract so it is less likely to be the source for her bacteremia. Urine culture growing Streptococcus. Unclear if symptomatic given her expressive aphasia. TTE done shows no significant valvular pathology. No valvular vegetation. Recommendations Continue IV vancomycin per pharm protocol which will cover MSSA in BC and Strep in urine Repeat BC to ensure clearance MRI spine in setting bacteremia, pain and spinal hardware Will need JOHN chris if BC persistently positive and/or no source for bacteremia found Follow up flex sig Consider thoracentesis and send pleural fluid for cell count and pleural studies, culture. Thank you for this consult. ID will continue to follow. ID will not round or review the chart tomorrow March 09, 2024. Call covering provider at [facility] at [phone] with questions. I will return , 03/10/2024. Alondra Clark MD, MPH Infectious Disease [facility], [facility] Consultation Information Consultation was provided via telemedicine using two-way real-time interactive telecommunication between the patient and the telemedicine provider. For the duration of the visit, the provider was performing the assessment from a different facility than the patient. This includesuse of bluetooth stethoscope forauscultationperformed by the telepresenter that the telemedicine provider can hear if described in the physical exam. Groundskeeping Yardman contact information: Please call [facility] . (Phone Number For Physician Use Only) After establishing a telemedicine visit, patient was: Patient was verified with two unique identifiers Time Spent with Patient: Initial => 75 min History of Present Illness Reason for Consultation: MSSA bacteremia Requesting Physician: DION Hickey Attending Physician: Evan Jerry MD History of Present Illness This is a 68-year-old female with a past medical history of traumatic brain injury, fractured scapula, multiple fractures of the right rib, frequent falls, seizures, aphasia, executive function deficit, lumbar post laminectomy syndrome, urinary incontinence, CVA with residual R hemiparesis who presents from a custodial facility after she was found on the ground between the toilet and the wall of the facility for an unknown period of time. Patient was more confused from her baseline. Patient has expressive aphasia and cannot provide a history. History obtained from chart review. Apparently she was found to have redness and swelling of the right side of her face and right lower extremity. Patient does not remember falling. She is unable to tell me why she presented to the hospital. She tells me that she has back pain and R leg pain .. In the ED, temperature 37.3, pulse 109, RR 18, BP 120/86, O2 sats 94% on room air. Labs: WBC 9.53, hemoglobin 8.6, hematocrit 28.1, platelets 1038, sodium 129, BUN 6, creatinine 0.36, AST 10, ALT 5. Urinalysis> 50 WBC. Negative MRSA screen. COVID testing negative. Blood cultures with MSSA in 2/4 bottles. Urine culture with a streptococcus gallalyticus Ct scan of the lumbar spine shows postsurgical thoraco lumbar spine with possible L4 and L5 vertebral fractures and subtle fracture of the left sacral ala. CT scan of the thoracic spine shows a T8 vertebral endplate wedge compression/fracture of unknown age. There is no significant abnormalities of the cervical spine. R Tib-fib x-ray shows a mildly displaced intra-articular fracture of the lateral corner of the right proximal tibia. Subtle nondisplaced cortical fracture laterally of the lateral malleolus. R Ankle x-ray shows no evidence of acute fracture , however overlying cast is limiting bony details. R Knee x-ray with no evidence of acute fracture. Visible distal femur diaphysis shows instrumentation from earlier surgery without periprosthetic lucencies seen to suggest loosening or infection. CT chest shows moderate volume bilateral pleural effusions with overlying consolidations and corresponding interstitial infiltrates right greater than left. Nondisplaced old fracture of the right third rib. A T8 vertebral chronic compression fracture. CT of the face shows a right nasal bone fracture. Head CT with no evidence of acute abnormality. CT abdomen pelvis shows a moderately large sized hiatal hernia. Possible mucosal thickening of fluid/gas filled normal caliber small bowel loops/enteritis. Gas/stool-filled mild distended large bowel loops. Irregular lobulations/abdominal wall thickening of a moderately distended rectum suspicious for malignancy. She has been evaluated by orthopedics, spine surgery, heme-onc, and GI . Her RLE was dressed and casted. No surgical intervention planned to LE or spine. She may undergo a flex sig later in the week. She is receiving IV vancomycin. She has a history of PCN and cephalexin allergy. ID consulted for MSSA bacteremia. Allergies Allergy/AdvReac Type Severity Reaction Status Date / Time cephalexin Allergy Severe Anaphylaxis Verified 02/25/24 10:29 Penicillins AdvReac Mild nausea Verified 02/25/24 10:29 Home Medications Medication Instructions Recorded Confirmed Type baclofen 10 mg tablet 10 mg PO DAILY PRN spasms #90 tabs 12/01/22 03/07/24 Rx celecoxib 200 mg capsule 200 mg PO QAM #90 caps 03/20/23 03/07/24 Rx clopidogrel 75 mg tablet 75 mg PO HS #90 tabs 03/20/23 03/07/24 Rx atorvastatin 10 mg tablet 10 mg PO 3XWK 09/28/23 03/07/24 History duloxetine 30 mg capsule,delayed 30 mg PO DAILY #30 caps 11/12/23 03/07/24 Rx release (Cymbalta) cholecalciferol (vitamin D3) 25 25 mcg PO DAILY 02/18/24 03/07/24 History mcg (1,000 unit) capsule docusate sodium 100 mg capsule 100 mg PO BID 02/18/24 03/07/24 History enoxaparin 30 mg/0.3 mL 30 mg subcut BID 02/18/24 03/07/24 History subcutaneous syringe (Lovenox) lidocaine 4 % topical patch 1 patch topical DAILY 02/18/24 03/07/24 History (Aspercreme (lidocaine)) ondansetron HCl 4 mg tablet 4 mg PO Q4H PRN Nausea And Vomiting 02/18/24 03/07/24 History sennosides 8.6 mg tablet (Senokot) 17.2 mg PO BID 02/18/24 03/07/24 History Wheelchair (Manual) #1 ea 02/25/24 02/25/24 Rx denosumab 60 mg/mL subcutaneous 60 mg subcut UD 03/07/24 03/07/24 History syringe (Prolia) morphine concentrate 100 mg/5 mL 10 mg PO Q1H PRN SOB/Pain 03/07/24 03/07/24 History (20 mg/mL) oral solution sodium chloride 1 gram tablet 2,000 mg PO BID 03/07/24 03/07/24 History tramadol 50 mg tablet 50 mg PO Q8H PRN Severe Pain 03/07/24 03/07/24 History (Scale Score 7-10) Patient History Medical History Headache, post-traumatic, acute Vascular dementia B12 deficiency expressive aphasia Aphasia, post-stroke Hemiparesis affecting right side as late effect of cerebrovascular accident Aphasia as late effect of cerebrovascular accident History of cerebrovascular accident from left carotid artery occlusion involving left middle cerebral artery territory Hemiplegia Right side > wears AFO brace on RLE, no control of right arm History of CVA (cerebrovascular accident) 1998 large left MCA territory in setting of occluded left carotid potentially related to oral contraception at that time > chronic spastic right hemiparesis, flaccid upper limb and mild to moderate expressive aphasia > on plavix > follows with [place] neuro Fall External constriction of left ring finger, initial encounter Sciatica Osteoporosis with fracture Hyperplastic colon polyp Ring or other jewelry causing external constriction, initial encounter Fall Closed femur fracture Memory loss Left carotid artery occlusion Vasovagal syncope if not laying flat during blood draws Encounter for pre-operative examination Memory problem History of depression 1998 per pt Hypertension controlled, stable per pt Chronic constipation with overflow 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 (CVA) 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 (CVA) CVA (cerebral vascular accident) Laceration of eyebrow, right Head trauma Osteoporosis Stroke Surgical History Presence of intrathecal pump Family history of reaction to anesthesia Mother: slow to wake History of gynecologic surgery Labial "removal" History of back surgery Lumbar fusion x2 History of colonoscopy History of tooth extraction History of tonsillectomy Family History Father Cancer Family history of esophageal cancer Other No pertinent family history Denies family history of Ovarian cancer Prostate cancer Diabetes Myocardial infarction Breast cancer Colorectal cancer Hypertension Social History Smoking Status: Never smoker Tobacco Type: Declines Age Started Using Tobacco: 12; Age Quit Using Tobacco: 22; packs per day: 0.1; Second Hand Exposure: No; Do You Dip or Chew Tobacco: No; Hx Alcohol Use: No Hx Substance Use: No Preferred Language: Irish Communication Ability: Impaired Communication Ability Comment: Expressive aphasia from previous CVA Visual Impairment: Limited Yard Operator 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 Beliefs That Will Affect Care: None marital status: Single Current Living Situation: Intermediate Current Living Situation Comment: [place] current occupational status: retired How many Children do You have: 0 Feels Safe at Home: Yes Childhood Exposure to Second-Hand Smoke: Yes caffeine: Yes (coffee) Dental Care, Regularly: Yes Physical Activity Frequency: Daily Seatbelt Use: always Sunscreen Use: Yes Assistive Devices: Wheelchair Review of System A 10 point ROS obtained. Poor historian due to aphasia. Pertinent positives as per HPI: complains of new back pain Physical Exam Physical Exam: Gen- NAD, expressive aphasia HEENT- ATNC, anicteric sclera Neck- supple MSK- BL lumbar and flank tenderness Ext-No LE edema, R LE dressed and in a boot - barlow in place, Flank tender b/l, no suprapubic tenderness Skin - no open wounds on exposed skin Neuro- expressive aphasia, R sided weakness Psych- cooperative Results & Data Vital Signs (Past 12 Hours) Vital Signs Temp Pulse Pulse Resp BP Pulse Ox O2 Del Method 03/08/24 14:53 36.8 C 94 H 18 137/71 92 Room Air 03/08/24 12:40 36.7 C 91 H 18 149/84 H 97 Room Air 03/08/24 07:30 36.9 C 95 H 18 139/78 93 Room Air 03/08/24 05:15 89 Laboratory Results Laboratory Results - last 48 hr 03/06/24 03/06/24 03/06/24 19:34 19:41 21:29 WBC 9.53 RBC 3.66 L Hgb 8.6 L POC Hgb 9.9 L Hct 28.1 L POC Hct 29 L MCV 76.8 L MCH 23.5 L MCHC 30.6 L RDW Std Deviation 46.0 RDW Coeff of Tera 16.4 H Plt Count 1038 H* MPV 8.6 L Immature Gran % (Auto) 0.3 Neut % (Auto) 67.0 Lymph % (Auto) 20.7 [place] % (Auto) 11.2 Eos % (Auto) 0.5 Baso % (Auto) 0.3 Neut # (Auto) 6.38 Lymph # (Auto) 1.97 [place] # (Auto) 1.07 H Eos # (Auto) 0.05 Baso # (Auto) 0.03 Immature Gran # (Auto) 0.03 Polychromasia Hypochromasia Peripher Smr Path Cons PT 11.4 INR 1.1 APTT 31 PTT Ratio 1.2 POC Sodium 129 L Sodium 129 L POC Potassium 3.7 Potassium 3.6 POC Chloride 92 L Chloride 93 L Carbon Dioxide 27 POC Total CO2 26 Anion Gap 9 POC Anion Gap 15.0 L POC BUN 4 L BUN 6 Creatinine 0.36 L POC Creatinine 0.3 L Est Cr Clr Drug Dosing 107.4 eGFR 110.51 BUN/Creatinine Ratio 16.7 Glucose 100 H POC Glucose (other) 101 H Lactate 1.2 Calcium 8.9 POC Ioniz Calcium Erendira 1.13 Magnesium 1.7 Iron TIBC Transferrin Transferrin % Sat Ferritin Total Bilirubin 0.4 AST 10 L ALT 5 L Alkaline Phosphatase 75 Total Creatine Kinase 37 Troponin I High Sens 6.6 Total Protein 7.8 Albumin 3.5 Globulin 4.3 H Albumin/Globulin Ratio 0.8 L Vitamin B12 Folate Urine Color Yellow Urine Appearance Cloudy A Urine pH 8.0 H Ur Specific [place] 1.029 Urine Protein Trace H Urine Glucose (UA) Negative Urine Ketones Negative Urine Blood Negative Urine Nitrite Negative Urine Bilirubin Negative Urine Urobilinogen Negative Ur Leukocyte Esterase 3+ H Urine WBC (Auto) >50 H Urine RBC (Auto) 6-10 H U Hyaline Cast (Auto) 0-2 U Epithel Cells (Auto) 6-10 H Urine Bacteria (Auto) 1+ H Nasal Screen MRSA (PCR) Random Vancomycin SARS-CoV-2, RNA, NAAT Staphylococcus sp PCR Staph aureus (PCR) mecA/C & MREJ Resist Gene Bld Cult ID Panel PCR 03/06/24 03/07/24 03/07/24 22:23 00:09 00:23 WBC 7.54 RBC 3.28 L Hgb 7.9 L POC Hgb Hct 25.7 L POC Hct MCV 78.4 L MCH 24.1 L MCHC 30.7 L RDW Std Deviation 46.5 H RDW Coeff of Tera 16.3 H Plt Count 993 H MPV 8.8 L Immature Gran % (Auto) 0.3 Neut % (Auto) 54.0 Lymph % (Auto) 29.8 [place] % (Auto) 13.8 Eos % (Auto) 1.6 Baso % (Auto) 0.5 Neut # (Auto) 4.07 Lymph # (Auto) 2.25 [place] # (Auto) 1.04 H Eos # (Auto) 0.12 Baso # (Auto) 0.04 Immature Gran # (Auto) 0.02 Polychromasia 1+ Hypochromasia Peripher Smr Path Cons PT INR APTT PTT Ratio POC Sodium Sodium POC Potassium Potassium POC Chloride Chloride Carbon Dioxide POC Total CO2 Anion Gap POC Anion Gap POC BUN BUN Creatinine POC Creatinine Est Cr Clr Drug Dosing eGFR BUN/Creatinine Ratio Glucose POC Glucose (other) Lactate Calcium POC Ioniz Calcium Erendira Magnesium Iron TIBC Transferrin Transferrin % Sat Ferritin Total Bilirubin AST ALT Alkaline Phosphatase Total Creatine Kinase Troponin I High Sens Total Protein Albumin Globulin Albumin/Globulin Ratio Vitamin B12 Folate Urine Color Urine Appearance Urine pH Ur Specific [place] Urine Protein Urine Glucose (UA) Urine Ketones Urine Blood Urine Nitrite Urine Bilirubin Urine Urobilinogen Ur Leukocyte Esterase Urine WBC (Auto) Urine RBC (Auto) U Hyaline Cast (Auto) U Epithel Cells (Auto) Urine Bacteria (Auto) Nasal Screen MRSA (PCR) Random Vancomycin SARS-CoV-2, RNA, NAAT NEGATIVE Staphylococcus sp PCR DETECTED A Staph aureus (PCR) DETECTED A mecA/C & MREJ Resist Gene MRSA Not Detected Bld Cult ID Panel PCR See PCR Comment 03/07/24 03/07/24 03/07/24 04:40 06:35 13:05 WBC 5.76 RBC 3.30 L Hgb 7.8 L POC Hgb Hct 25.8 L POC Hct MCV 78.2 L MCH 23.6 L MCHC 30.2 L RDW Std Deviation 46.5 H RDW Coeff of Tera 16.2 H Plt Count 833 H MPV 8.6 L Immature Gran % (Auto) 0.3 Neut % (Auto) 57.1 Lymph % (Auto) 21.2 [place] % (Auto) 19.3 Eos % (Auto) 1.6 Baso % (Auto) 0.5 Neut # (Auto) 3.29 Lymph # (Auto) 1.22 [place] # (Auto) 1.11 H Eos # (Auto) 0.09 Baso # (Auto) 0.03 Immature Gran # (Auto) 0.02 Polychromasia 1+ Hypochromasia Peripher Smr Path Cons PT 12.3 H INR 1.1 APTT PTT Ratio POC Sodium Sodium 133 L POC Potassium Potassium 3.4 L POC Chloride Chloride 98 Carbon Dioxide 29 POC Total CO2 Anion Gap 6 POC Anion Gap POC BUN BUN 3 L Creatinine 0.32 L POC Creatinine Est Cr Clr Drug Dosing 120.9 eGFR 113.69 BUN/Creatinine Ratio 9.4 L Glucose 89 POC Glucose (other) Lactate Calcium 8.5 L POC Ioniz Calcium Erendira Magnesium 1.6 L Iron 11 L TIBC 160 L Transferrin 114 L Transferrin % Sat 7 L Ferritin 665.3 H Total Bilirubin 0.4 AST 9 L ALT 4 L Alkaline Phosphatase 62 Total Creatine Kinase Troponin I High Sens Total Protein 6.5 Albumin 2.8 L Globulin 3.7 Albumin/Globulin Ratio 0.8 L Vitamin B12 154 L Folate 7.86 Urine Color Urine Appearance Urine pH Ur Specific [place] Urine Protein Urine Glucose (UA) Urine Ketones Urine Blood Urine Nitrite Urine Bilirubin Urine Urobilinogen Ur Leukocyte Esterase Urine WBC (Auto) Urine RBC (Auto) U Hyaline Cast (Auto) U Epithel Cells (Auto) Urine Bacteria (Auto) Nasal Screen MRSA (PCR) Negative Random Vancomycin SARS-CoV-2, RNA, NAAT Staphylococcus sp PCR Staph aureus (PCR) mecA/C & MREJ Resist Gene Bld Cult ID Panel PCR 03/08/24 10:10 WBC 6.43 RBC 3.27 L Hgb 7.8 L POC Hgb Hct 25.8 L POC Hct MCV 78.9 L MCH 23.9 L MCHC 30.2 L RDW Std Deviation 47.0 H RDW Coeff of Tera 16.4 H Plt Count 883 H MPV 8.9 L Immature Gran % (Auto) 0.3 Neut % (Auto) 64.9 Lymph % (Auto) 20.8 [place] % (Auto) 11.5 Eos % (Auto) 2.0 Baso % (Auto) 0.5 Neut # (Auto) 4.17 Lymph # (Auto) 1.34 [place] # (Auto) 0.74 H Eos # (Auto) 0.13 Baso # (Auto) 0.03 Immature Gran # (Auto) 0.02 Polychromasia 1+ Hypochromasia Present Peripher Smr Path Cons PT 12.4 H INR 1.2 H APTT 32 H PTT Ratio 1.2 POC Sodium Sodium 134 L POC Potassium Potassium 3.4 L POC Chloride Chloride 99 Carbon Dioxide 27 POC Total CO2 Anion Gap 8 POC Anion Gap POC BUN BUN 5 L Creatinine 0.29 L POC Creatinine Est Cr Clr Drug Dosing 133.4 eGFR 116.42 BUN/Creatinine Ratio 17.2 Glucose 108 H POC Glucose (other) Lactate Calcium 8.4 L POC Ioniz Calcium Erendira Magnesium 1.7 Iron TIBC Transferrin Transferrin % Sat Ferritin Total Bilirubin 0.3 AST 9 L ALT 4 L Alkaline Phosphatase 58 Total Creatine Kinase Troponin I High Sens Total Protein 6.5 Albumin 2.7 L Globulin 3.8 Albumin/Globulin Ratio 0.7 L Vitamin B12 Folate Urine Color Urine Appearance Urine pH Ur Specific [place] Urine Protein Urine Glucose (UA) Urine Ketones Urine Blood Urine Nitrite Urine Bilirubin Urine Urobilinogen Ur Leukocyte Esterase Urine WBC (Auto) Urine RBC (Auto) U Hyaline Cast (Auto) U Epithel Cells (Auto) Urine Bacteria (Auto) Nasal Screen MRSA (PCR) Random Vancomycin 10.5 SARS-CoV-2, RNA, NAAT Staphylococcus sp PCR Staph aureus (PCR) mecA/C & MREJ Resist Gene Bld Cult ID Panel PCR Diagnostic Findings Microbiology 03/07/24 00:09 Blood Aerobic Blood Culture - Preliminary Gram positive cocci clusters 03/07/24 00:09 Blood Anaerobic Blood Culture - Preliminary Staphylococcus aureus 03/06/24 21:29 Urine,Straight Cath Urine Culture - Final Streptococcus gallalyticus 03/07/24 00:23 Blood Aerobic Blood Culture - Preliminary No growth in Aerobic bottle after 24 hours. 03/07/24 00:23 Blood Anaerobic Blood Culture - Final Lumbar Spine CT 03/06/24 19:06 Exam(s): CT L SPINE With Contrast IV Amt: 90 ml optiray 320 EXAM: CT Lumbar Spine With Intravenous Contrast CLINICAL HISTORY: Reason for exam: Trauma. TECHNIQUE: Axial computed tomography images of the lumbar spine with intravenous contrast. CTDI is 16 mGy and DLP is 717 mGy-cm. Automated exposure control was utilized for the study. A dose lowering technique was utilized adhering to the principles of ALARA. CONTRAST: Patient received 90 ml optiray 320 of IV contrast COMPARISON: None FINDINGS: Image quality is hampered by motion and metallic beam hardening artifacts. Vertebrae: Postsurgical spine/posterior interbody fusion instrumentation from T11-S1 with bilateral pedicle screws and interconnecting rods. Osteoporosis. Possible L4 and L5 vertebral fractures. Moderate dextroscoliosis. Exaggerated lumbar lordosis. There is diastasis mild/moderate widening of the right SI joint. Cannot exclude subtle fracture of the left sacral ala. Discs/spinal canal/neural foramina: Multilevel moderately advanced degenerative spondylosis. Soft tissues: Soft tissue edema/anasarca. Other findings: . Bilateral pleural effusions. IMPRESSION: Limited exam. Postsurgical thoracolumbosacral spine. Osteoporosis. Possible L4 and L5 vertebral fractures. Suspect subtle fracture of the left sacral ala. Moderate dextroscoliosis. Exaggerated lumbar lordosis. Multilevel moderately advanced degenerative spondylosis. Electronically signed by: Shanti Carrillo MD, DABR 03/07/24 00:10 AM Abdomen/Pelvis CT 03/06/24 19:07 Exam(s): CT ABDOMEN + PELVIS With Contrast IV Amt: 90 ml optiray 320 EXAM: CT Abdomen and Pelvis With Intravenous Contrast CLINICAL HISTORY: Reason for exam: Trauma. TECHNIQUE: Axial computed tomography images of the abdomen and pelvis with intravenous contrast. CTDI is 26.96 mGy and DLP is 691.25 mGy-cm. Automated exposure control was utilized for the study. A dose lowering technique was utilized adhering to the principles of ALARA. CONTRAST: Patient received 90 ml optiray 320 of IV contrast COMPARISON: None. FINDINGS: A large size electronic battery pack/metallic Device over the mid ventral abdominal wall. Patient's right upper left over the mid/lower abdomen. Diagnostic sensitivity of the exam is markedly hampered/reduced by motion and beam hardening artifacts. Lung bases: Concurrently performed CT chest is reported separately. ABDOMEN: Liver: Unremarkable. Mildly dilated intrahepatic bile ducts. Gallbladder and bile ducts: Unremarkable. No calcified stones. No ductal dilation. Pancreas: Unremarkable as visible.. Spleen: No splenomegaly. Adrenals: Unremarkable. No mass. Kidneys and ureters: No discernible solid mass. No hydronephrosis. Stomach and bowel: A moderately large size hiatal hernia. There is likely mucosal thickening of the fluid/gas filled normal caliber small bowel (series 1700 image 36). Gas/stool filled mild/moderately distended large bowel. There is irregularly lobulated abnormal appearing wall thickening of a moderately distended rectum, suspicious of malignancy (series 17 image 246, series 1700 image 45). PELVIS: Appendix: Not visualized. No obvious acute findings in the region. Bladder: Uniform mild bladder wall thickness. No mass. Reproductive: Likely a lobulated anteverted atrophic uterus present (series 1701, image 62). ABDOMEN and PELVIS: Intraperitoneal space: Unremarkable. No free air. No significant fluid collection. Bones/joints: Diffuse osseous demineralization. Postsurgical thoracolumbosacral spine with posterior fusion instrumentation. Multilevel degenerative spondylosis. Right proximal femur orthopedic instrumentation.. Hip osteoarthrosis. Soft tissues: Lower abdominal/pelvic wall edema/anasarca. Vasculature: Diffuse calcified atherosclerosis of the aortoiliac vasculature and branch vessels. No abdominal aortic aneurysm. Lymph nodes: No enlarged lymph nodes.. IMPRESSION: A markedly limited/nondiagnostic exam. A moderately large size hiatal hernia. Possibly mucosal thickening of fluid/gas filled normal caliber small bowel loops/enteritis. Clinical correlation advised Gas/stool filled mild/moderately distended large bowel loops. Irregular lobulations/abnormal wall thickening of a moderately distended rectum, suspicious of malignancy. Recommend follow-up. Additional findings as described above. Electronically signed by: Shanti Carrillo MD, DUSTIN 03/06/24 22:[address] 03/06/24 19:07 Exam(s): CT C SPINE EXAM: CT Cervical Spine Without Intravenous Contrast CLINICAL HISTORY: Reason for exam: Trauma. TECHNIQUE: Axial computed tomography images of the cervical spine without intravenous contrast. CTDI is 16.98 mGy and DLP is 717.98 mGy-cm. Automated exposure control was utilized for the study. A dose lowering technique was utilized adhering to the principles of ALARA. COMPARISON: CT cervical spine: 11/22/2023 FINDINGS: Vertebrae: C4 vertebral 3.5 mm of anterolisthesis. C7 vertebral 3 mm anterolisthesis. No acute fracture. Discs/spinal canal/neural foramina: Redemonstrates advanced multilevel degenerative disc/endplate and posterior elements spondylosis with variable degrees of neuroforaminal and central canal stenosis. Soft tissues: Unremarkable. Other findings: Pulmonary biapical pleural parenchymal scarring. . IMPRESSION: No significant abnormalities post trauma. . Electronically signed by: Shanti Carrillo MD, DABR 03/06/24 21:[address] 03/06/24 19:07 Exam(s): CT CHEST With Contrast IV Amt: 90 ml optiray 320 EXAM: CT Chest With Intravenous Contrast CLINICAL HISTORY: Reason for exam: Trauma. TECHNIQUE: Axial computed tomography images of the chest with intravenous contrast. CTDI is 11 mGy and DLP is 311 mGy-cm. Automated exposure control was utilized for the study. A dose lowering technique was utilized adhering to the principles of ALARA. CONTRAST: Patient received 90 ml optiray 320 of IV contrast COMPARISON: CT chest: 11/22/2023 FINDINGS: Motion-induced image degradation limits anatomical details. Lungs: Central airways are patent. Bilateral diffuse bronchial wall thickening. Bilateral lower lung lobes posteriorly consolidation/atelectasis and surrounding interstitial opacities. Pleural space: Moderate volume bilateral pleural effusions RT>LT. No pneumothorax. Heart: Borderland/mild cardiomegaly. Thickly calcified mitral valve annulus. No significant pericardial effusion. No significant coronary artery calcifications. Bones/joints: Osteopenia. A T8 vertebral superior endplate mild/moderate chronic compression fracture . No acute fracture. No dislocation. Degenerative changes of the spine. Increased thoracic kyphosis. Postsurgical thoracolumbar spine. A nondisplaced old fracture of the right third rib posteriorly. Soft tissues: Unremarkable. Vasculature: Unremarkable. No thoracic aortic aneurysm. Lymph nodes: Multiple calcified left hilar lymph nodes in the left lower lung lobe calcified nodules/granulomas. No lymphadenopathy by CT size criteria... IMPRESSION: Moderate volume bilateral new pleural effusions with overlying consolidation/atelectasis and corresponding interstitial infiltrates RT>LT Mild cardiomegaly. A nondisplaced old fracture of the right third rib posteriorly. A T8 vertebral superior endplate mild/moderate chronic compression/fracture seen similar to the prior exam. Electronically signed by: Shanti Carrillo MD, DUSTIN 03/06/24 23:[address] 03/06/24 19:07 Exam(s): CT FACIAL Without Contrast EXAM: CT Maxillofacial Without Intravenous Contrast CLINICAL HISTORY: Reason for exam: Trauma. TECHNIQUE: Axial computed tomography images of the face without intravenous contrast. CTDI is 26.96 mGy and DLP is 291.25 mGy-cm. Automated exposure control was utilized for the study. A dose lowering technique was utilized adhering to the principles of ALARA. COMPARISON: None. FINDINGS: Motion-induced image degradation. Bones/joints: There is a right nasal bone fracture with angulation. No other acute facial bone fracture seen. Bilateral TMJ osteoarthritis. Soft tissues: Unremarkable. Orbits: Unremarkable. Sinuses: Unremarkable. No air-fluid levels.. IMPRESSION: Right nasal bone fracture. Otherwise no significant abnormalities post trauma. . Electronically signed by: Shanti Carrillo MD, DABR 03/06/24 23:[address] 03/06/24 19:07 Exam(s): CT HEAD Without Contrast EXAM: CT Head Without Intravenous Contrast CLINICAL HISTORY: Reason for exam: trauma. TECHNIQUE: Axial computed tomography images of the head/brain without intravenous contrast. CTDI is 65.68 mGy and DLP is 1098.96 mGy-cm. Automated exposure control was utilized for the study. A dose lowering technique was utilized adhering to the principles of ALARA. COMPARISON: CT brain: 11/22/2023 FINDINGS: Extensive motion/beam hardening artifact limits the sensitivity of the exam. Brain: Redemonstrates a large size encephalomalacia involving left chávez radiata with exvacuo-dilatation of the left lateral ventricle/ventriculomegaly. No acute intracranial hemorrhage or midline shift of structures. No abnormal extra-axial fluid collections. Moderate cerebral atrophy with widening of the extra-axial spaces. Basilar cisterns are patent.. Bones/joints: Unremarkable. No acute fracture. Soft tissues: Unremarkable. Sinuses: No acute sinusitis. Mastoid air cells: Unremarkable as visualized. No mastoid effusion.. IMPRESSION: No conclusive evidence of acute intracranial abnormality. . Electronically signed by: Shanti Carrillo MD, DABR 03/06/24 22:[address] 03/06/24 19:07 Exam(s): CT T SPINE IV Amt: 90 ml optiray 320 EXAM: CT Thoracic Spine With Intravenous Contrast CLINICAL HISTORY: Reason for exam: trauma. TECHNIQUE: Axial computed tomography images of the thoracic spine with intravenous contrast. CTDI is 16.98 mGy and DLP is 717 mGy-cm. Automated exposure control was utilized for the study. A dose lowering technique was utilized adhering to the principles of ALARA. CONTRAST: Patient received 90 ml optiray 320 of IV contrast COMPARISON: None. FINDINGS: Diagnostic sensitivity of the exam is reduced by motion artifact. Vertebrae: Diffuse osseous demineralization. T8 vertebral superior endplate anterior wedge compression of indeterminant age (series 1801, image 33).. Otherwise no thoracic vertebral acute fracture is seen. No segmental malalignment. Increased thoracic kyphosis. Posteriorly nondisplaced nonunited fracture of the right second rib (series 302 image 13). Discs/spinal canal/neural foramina: No acute findings. No spinal canal stenosis. Soft tissues: Unremarkable. Other findings: Demonstrates moderate volume bilateral pleural effusions with overlying consolidation/atelectasis and surrounding infiltrates in the lower lobes. Cardiomegaly. Multiple calcified left hilar lymph nodes and left lower lobe calcified nodules/granulomas. IMPRESSION: Suboptimally evaluated due to motion artifact. A T8 vertebral superior endplate anterior wedge compression/fracture of indeterminant age. Otherwise no significant abnormalities post trauma. . Electronically signed by: Shanti Carrillo MD, DABSherron 03/06/24 22:48 PM Tibia/Fibula X-Ray 03/06/24 19:08 Exam(s): XR RIGHT TIB/FIB, 2 views EXAM: XR Right Tibia and Fibula, 2 Views CLINICAL HISTORY: Reason for exam: Trauma. TECHNIQUE: Frontal and lateral views of the right tibia and fibula. COMPARISON: None. FINDINGS: Bones/joints: Diffuse osseous demineralization. Intramedullary anaid/nail fixation of the visualized right femur. There is a minimally displaced intra-articular fracture of the lateral corner of the tibial plateau. Laterally mild soft tissue swelling of the right knee. Tricompartmental moderate right knee osteoarthrosis. Suspect laterally a subtle nondisplaced cortical fracture of the lateral malleolus. No dislocation. Soft tissues: Soft tissue swelling of the ankle more laterally. No radiopaque foreign body.. IMPRESSION: Osteopenia. A mildly displaced intra-articular fracture of the lateral corner of the right proximal tibia. Likely a subtle nondisplaced cortical fracture laterally of the lateral malleolus. Periarticular soft tissue swelling more laterally. Tricompartmental right knee osteoarthrosis. . Electronically signed by: Shanti Carrillo MD, DABR 03/06/24 23:56 PM Ankle X-Ray 03/07/24 07:19 EXAM: XR ankle RT min 3V routine CLINICAL HISTORY: RIGHT LOWER LEG TRAUMA RIGHT KNEE AND ANKLE PAIN. TECHNIQUE: X-ray images of the right ankle were obtained in anteroposterior (AP), lateral, and mortise projections. COMPARISON: X-ray dated 11/03/2023. FINDINGS: Bone Structure: Status post back slab/plaster cast limiting fine details. Reduced mineralization of the imaged bony structures seen, suggests osteopenia with prominent trabeculae. Bone normal aligned. No evidence of fracture or dislocation. No osseous lesions or abnormalities were identified. Generazlied osteopenia. Joint Spaces: Joint spaces are normal. No evidence of joint effusion or subluxation. Soft Tissues: Soft tissues appear normal and unremarkable. No soft tissue swelling, calcifications, or foreign bodies noted. Additional Findings: Slight spurring of the hindfoot bone seen suggest insignificant/early degenerative changes IMPRESSION: 1. Overlying cast is limiting fine bony details. No evidence of acute fracture, dislocation, or significant soft tissue abnormalities. 2. Osteopenia. Disclaimer: A subtle bone abnormality or occult fracture may not be readily apparent on X-rays, thus clinical correlation and further imaging including follow-up 3D CT, MRI, or follow-up X-rays are advised as needed. Electronically signed by Misael Shin 03-07-2024 08:54 AM Knee X-Ray 03/07/24 07:19 EXAM: XR knee RT 1 or 2V routine CLINICAL HISTORY: RIGHT LOWER LEG TRAUMA RIGHT KNEE AND ANKLE PAIN. TECHNIQUE: X-ray images of the right knee were obtained in 2 views: Anteroposterior (AP) and lateral projections. COMPARISON: X-ray dated 09/28/2023. FINDINGS: Status post back slab/ plaster cast. Visible distal femur diaphysis shows instrumentation from earlier surgery, no periprosthetic lucencies seen to suggest loosening or infection. Bone Structure: Reduced mineralization of the imaged bones seen suggests osteopenia. Bone structure is normal and well-aligned. No evidence of acute fractures or dislocations. No osseous lesions or abnormalities were identified. Joint Spaces: Joint spaces are narrowed in medial and lateral tibiofemoral and patellofemoral compartments with sub articular sclerosis. Articular Surfaces: Intact. Patella: Patella is normal in position and alignment. No evidence of patellar dislocation or subluxation. Soft Tissues: Periarticular soft tissues appear normal and unremarkable. No soft tissue swelling, calcifications, or foreign bodies noted. IMPRESSION: 1. No evidence of acute fractures, or dislocations. 2. Tricompartmental degenerative changes. 3. Osteopenia. 4. Visible distal femur diaphysis shows instrumentation from earlier surgery, no periprosthetic lucencies seen to suggest loosening or infection. 5. Current radiograph remains interval stable since the prior X-ray of 09/28/2023. Disclaimer: A subtle bone abnormality or fracture may not be readily apparent on X-rays, thus clinical correlation and further imaging including follow-up CT, MRI, or follow-up X-rays are advised as needed. Electronically signed by Misael Shin 03-07-2024 08:44 AM Chest X-Ray 03/08/24 11:19 XR chest 1V portable CLINICAL HISTORY: recheck effusions COMPARISON STUDY: Chest CT March 06, 2024. FINDINGS: This exam is mildly compromised given difficulty positioning. Postoperative findings within the spine are noted. Old right-sided rib fractures are noted as well as old fractures of the right clavicle and scapula. There is no pneumothorax. [id number] bilateral pleural effusions with associated bibasilar opacities are similar to prior CT. Pulmonary edema has mildly progressed. Cardiac mediastinal fluid is stable. IMPRESSION: 1. [id number] bilateral pleural effusions with associated bibasilar opacities, similar to prior CT. 2. Progression of pulmonary edema. ACT 112: Negative or not required by law. Electronically signed by: Conner Anand M.D. 03/08/2024 12:07 PM Medications Administered Home Medications Medication Instructions Recorded Confirmed Last Taken baclofen 10 mg tablet 10 mg PO DAILY PRN spasms #90 tabs 12/01/22 03/07/24 Unknown celecoxib 200 mg capsule 200 mg PO QAM #90 caps 03/20/23 03/07/24 11/05/23 clopidogrel 75 mg tablet 75 mg PO HS #90 tabs 03/20/23 03/07/24 11/05/23 atorvastatin 10 mg tablet 10 mg PO [id number] 09/28/23 03/07/24 11/04/23 duloxetine 30 mg capsule,delayed 30 mg PO DAILY #30 caps 11/12/23 03/07/24 Unknown release (Cymbalta) cholecalciferol (vitamin D3) 25 25 mcg PO DAILY 02/18/24 03/07/24 Unknown mcg (1,000 unit) capsule docusate sodium 100 mg capsule 100 mg PO BID 02/18/24 03/07/24 Unknown enoxaparin 30 mg/0.3 mL 30 mg subcut BID 02/18/24 03/07/24 Unknown subcutaneous syringe (Lovenox) lidocaine 4 % topical patch 1 patch topical DAILY 02/18/24 03/07/24 Unknown (Aspercreme (lidocaine)) ondansetron HCl 4 mg tablet 4 mg PO Q4H PRN Nausea And Vomiting 02/18/24 03/07/24 Unknown sennosides 8.6 mg tablet (Senokot) 17.2 mg PO BID 02/18/24 03/07/24 Unknown Wheelchair (Manual) #1 ea 02/25/24 02/25/24 Unknown denosumab 60 mg/mL subcutaneous 60 mg subcut UD 03/07/24 03/07/24 Unknown syringe (Prolia) morphine concentrate 100 mg/5 mL 10 mg PO Q1H PRN SOB/Pain 03/07/24 03/07/24 Unknown (20 mg/mL) oral solution sodium chloride 1 gram tablet 2,000 mg PO BID 03/07/24 03/07/24 Unknown tramadol 50 mg tablet 50 mg PO Q8H PRN Severe Pain 03/07/24 03/07/24 Unknown (Scale Score 7-10) Active Medications Generic Name Dose Route Start Last Admin Trade Name Freq PRN Reason Stop Dose Admin Acetaminophen 650 mg 03/07/24 03:09 03/07/24 13:55 Acetaminophen 325 Mg Tab PO 04/06/24 03:08 650 mg Q4H PRN Administration Pain or Fever Atorvastatin Calcium 10 mg 03/07/24 09:00 03/07/24 10:17 Atorvastatin 10 Mg Tab PO 04/06/24 08:59 10 mg [id number] FREDO Administration Cyanocobalamin 100 mcg 03/08/24 09:00 03/08/24 08:28 Cyanocobalamin (B-12) 100 Mcg Tablet PO 04/07/24 08:59 100 mcg QAM FREDO Administration Docusate Sodium 100 mg 03/07/24 09:00 03/08/24 08:39 Docusate Sodium 100 Mg Cap PO 04/06/24 08:59 100 mg BID FREDO Administration Duloxetine HCl 30 mg 03/07/24 09:00 03/08/24 08:28 Duloxetine Hcl 30 Mg Cap PO 04/06/24 08:59 30 mg DAILY FREDO Administration Enoxaparin Sodium 30 mg 03/07/24 09:00 03/08/24 08:28 Enoxaparin Inj 30 Mg/0.3 Ml Syr SQ 04/06/24 08:59 30 mg BID FREDO Administration Vancomycin HCl 1,000 mg in 270 mls @ 200 mls/hr 03/08/24 12:00 03/08/24 14:49 Vancomycin Hcl IV 03/22/24 11:59 Infused Q8H FREDO Infusion Lidocaine 1 patch 03/07/24 09:00 03/08/24 08:29 Lidocaine 5% 1 Patch TD 04/06/24 08:59 1 patch QAM FREDO Administration Potassium Chloride 10 meq 03/07/24 09:00 03/08/24 08:28 Potassium Chloride 10 Meq Tabcr PO 04/06/24 08:59 10 meq DAILY FREDO Administration Sennosides 17.2 mg 03/07/24 09:00 03/08/24 08:39 Senna 8.6 Mg Tab PO 04/06/24 08:59 17.2 mg BID FREDO Administration Sodium Chloride 2 gm 03/07/24 09:00 03/08/24 08:28 Sodium Chloride 1 Gm Tablet PO 04/06/24 08:59 2 gm BID FREDO Administration Vitamin D 25 mcg 03/07/24 09:00 03/08/24 08:28 Cholecalciferol 25 Mcg (1000 Units) Tab PO 04/06/24 08:59 25 mcg DAILY FREDO Administration (7) Pneumonia Laterality: unspecified laterality Lung location: unspecified part of lung Pneumonia type: due to unspecified organism Qualified Code(s): J18.9 - Pneumonia, unspecified organism
--- NOTE | 2024-03-08 18:08 | Hospitalist Progress Note ---
Date of Service March 08, 2024 Assessment & Plan (1) Parapneumonic effusion: (2) Acute UTI: (3) Lateral malleolar fracture: (4) Fracture of proximal end of tibia: (5) Thrombocytosis: (6) Frequent falls: Plan The patient is a 68-year-old female with a past medical history including traumatic brain injury with delayed recovery, fractured scapula, multiple fractures of right sided ribs, frequent falls, generalized weakness, malnutrition, seizure history, hyponatremia, aphasia due to disease, executive function deficit, lumbar postlaminectomy syndrome and urinary incontinence. She is referred to the emergency department after being found between the toilet and wall facility for an unknown length of time after an unwitnessed fall. Staff became concerned because the patient had a simin on the right side of her face, and that she seemed more confused than her baseline. #Parapneumonic effusions bilaterally- May be an element of aspiration, does not appear volume overloaded on exam. Chest CT 03/06: moderate volume b/l new pleural effusions w/ overlying consolidation/atelectasis & corresponding interstitial infiltrates. Continue vancomycin IV. Meropenem d/c 03/08 Blood culture: MSSA. Sensitivities pending. source unknown. Pulmonary consulted for possible thoracentesis Infectious disease consulted - MRI spine (ordered) - Repeat blood cultures - ordered for AM TTE: without vegetations #Urinary tract infection- UC: strep gallalyticus Will be covered by vanco, but not source of bacteremia. #Right proximal tibial and lateral malleolar fracture- Read as possibly acute by radiology overnight Ortho evaluated patient 03/07 - no fracture identified. Likely right knee contusion and right ankle sprain. Immobilizer from ED removed - cast padding and VICKIE wrap applied for comfort. PT/OT POA reports Dr. Pereyra, [facility], had ordered a brace for her leg that was supposed to be put on at the hospital. Consider if this can be done while inpatient closer to discharge #Multiple vertebral fractures, with unclear timeframe- Patient has had significant trauma admission at [facility] in [place] in December this year Fractures at T8, L4 and L5 have been referred to but, appears to be more chronic than acute Consult orthopedic spine - recommend mobilization, no brace or surgery. Presently on a baclofen pump, Which has been recently refilled by pain management service, and reportedly is filled until appointment 03/16 #Thrombocytosis/progressive anemia- Platelets have been 298 at baseline, but on admission were 1038 Hemoglobin baseline has been 12-13, but 8.6 on admission Iron panel: transferrin sat 7%, iron 11, TIBC 160 Vitamin B12: 154, started on PO supplementation, Patient declined B12 injection. 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 No concerns myeloproliferative neoplasm. - continue to treat iron deficiency. S/p Venofer x2 - continue on PO supplementation AM CBC #Abnormal CT finding CTAP 03/06: Possible enteritis, possible large bowel loops and question of possible malignancy with anasarca GI consulted - could perform flex sigmoidoscopy later in the week, if lungs improve Monitor H/H, transfuse to keep hgb > 7 Monitor for signs of bleeding, none observed thus far. #Hypokalemia- Potassium 03/08: 3.4 Patient takes 10meq daily AM BMP #Hypomagnesemia- Magnesium 1.6 s/p 1 bag IV mag Mag repeted #Aphasia Chronic after stroke. Able to speak some, reliable answer yes or no questions. Able to understand/comprehend what you are saying. Communication Board for patient #Long-term disposition, patient has been seen by palliative care (wendy) in the outpatient setting Depending upon above, patient may need palliative consult Dispo: continued inpatient stay to continue further work up DVT proh: chemical held with anemia Robin updated by phone and bedside 03/08 Admission and Anticipated Discharge Date Admission Date: March 07, 2024 Supervising Physician Co-Signing Physician Notes Attending Attestation - Chart reviewed in detail, care plan d/w DION Elmore. I agree w/ the gerard components of her documentation. Complex 68yo female with numerous active problems at this time including pleural effusions, UTI, ?rectal mass, staph bacteremia. Appreciate pulmonary consultation, ID consult, etc. Evan Jerry MD Subjective patient seen lying in bed - discussed everything that we have found on imaging and she does tell me that she wants to have a full work up done she does report pain with movement - but unable to say where the pain is Denies abd pain or changes in stool habits Friend/DANISHA modi - updated at bedside and via phone. Reports she would want everything done. She falls frequently because she gets up without asking for help Tele - SR 80-90s Review of Systems Review of Systems: All systems reviewed & are unremarkable except as noted in Subjective Physical Exam Physical Exam: General: NAD, VS as above HEENT: MM dry Resp: normal respiratory effort, lungs clear to auscultation CV: RRR, no murmur, Abd: normal bowel sounds, non tender, no hepatosplenomegaly. pain pump palpable Extremities: right leg in vickie wrap from knee to ankle with ankle brace in place. No LE edema. Neuro: A&O x3, Skin: intact, no lesions noted Results & Data Results & Data Vital Signs (Past 12 Hours) Vital Signs Temp Pulse Pulse Resp BP Pulse Ox O2 Del Method 03/08/24 17:56 91 H 03/08/24 14:53 98.2 F 94 H 18 137/71 92 Room Air 03/08/24 12:40 98.1 F 91 H 18 149/84 H 97 Room Air 03/08/24 07:30 98.4 F 95 H 18 139/78 93 Room Air Laboratory Results cbc chemistry reviewed mag reviewed blood cultures reviewed Diagnostic Findings CT a/p reviewed cxr reviewed PG Care Time/CCT Total # of Minutes Spent Total Time Spent with Patient: Total time spent is greater than 50% in coordination of care (as documented) at patient's floor/unit and/or counseling patient: Coding Level of Care Code 59952 SUB INP/OBS CARE 3/50MIN Diagnoses Parapneumonic effusion J18.9; J91.8 Acute UTI N39.0 Lateral malleolar fracture S82.61XA Encounter type: initial encounter Fracture alignment: displaced Fracture type: closed Laterality: right Fracture of proximal end of tibia S82.101A Encounter type: initial encounter Fracture morphology: unspecified fracture morphology Fracture type: closed Laterality: right Thrombocytosis D75.839 Frequent falls R29.6 (3) Lateral malleolar fracture Encounter type: initial encounter Fracture alignment: displaced Fracture type: closed Laterality: right Qualified Code(s): S82.61XA - Displaced fracture of lateral malleolus of right fibula, initial encounter for closed fracture (4) Fracture of proximal end of tibia Encounter type: initial encounter Fracture morphology: unspecified fracture morphology Fracture type: closed Laterality: right Qualified Code(s): S82.101A - Unspecified fracture of upper end of right tibia, initial encounter for closed fracture
[2024-03-08] MEDS: FUROSEMIDE INJ 20 MG/2 ML VIAL IV ONE (19:26)
[2024-03-09] MEDS: FERROUS SULFATE 325 MG TAB PO SCH (08:05)
[2024-03-09 08:15] LABS: Albumin Globulin Ratio 0.7 (0.9-2); Albumin Level 2.8 gm/dl (3.4-5.0); Bilirubin,Total 0.3 mg/dl (0.2-1.0); Calcium 8.6 mg/dl (8.6-10.3); Creatinine Clr Calc Pharmacy 154.7 ml/min; Globulin 3.8 gm/dl (2.5-4.0); Potassium 3.3 mmol/L (3.5-5.1); Total Protein 6.6 gm/dl (6.0-8.3)
--- NOTE | 2024-03-09 08:50 | XRay Report ---
PA CHEST RADIOGRAPH AND UPRIGHT AND SUPINE AP RADIOGRAPHS OF THE ABDOMEN CLINICAL HISTORY: Colonic distention PAIN PUMP POSITION FOR MRI COMPARISON STUDY: Chest radiograph March 08, 2024. CT of the chest, abdomen and pelvis February 072023. FINDINGS: There is no pneumothorax. Pulmonary edema has progressed. Moderate bilateral pleural effus ions with associated bibasilar opacities have increased. Cardiomegaly. Postoperative findings within the spine are noted. There is a right femoral internal fixation. Orientation of the left lower quadra nt pain pump is normal. The entirety of the catheter is not well visualized on this exam. No contrain dication to MRI within the chest, abdomen or pelvis. There is no free air. There is no radiographic e vidence for a bowel obstruction. IMPRESSION: 1. Normal orientation of the left lower quadrant pain pump. No contraindication to MRI within the [address], abdomen or pelvis. 2. Progression of pulmonary edema with moderate bilateral pleural effusions and associated bibasilar opacities. 3. No free air or evidence for a bowel obstruction. ACT 112: Negative or not required by law. Electronically signed by: Conner Anand M.D. 03/09/2024 8:47 AM
[2024-03-09] MEDS: POTASSIUM CHLORIDE CRTAB 20 MEQ TABCR PO STA (09:11)
[2024-03-09 09:15] LABS: Basophils # (auto) 0.05 K/uL (0.00-0.20); Basophils % (auto) 0.9 %; Eosinophils # (auto) 0.21 K/uL (0.00-0.50); Eosinophils % (auto) 3.6 %; Hematocrit (blood only) 28.1 % (37.0-47.0); Hemoglobin 8.5 g/dl (12.0-16.0); Immature Granulocytes # (auto) 0.02 K/uL (0.01-0.20); Immature Granulocytes % (auto) 0.3 %; Lymphocytes # (auto) 1.36 K/uL (1.20-3.40); Lymphocytes % (auto) 23.2 %; Mean Corpuscular Hemoglobin 23.7 pg (25.0-34.0); Mean Corpuscular Hgb Conc 30.2 g/dL (32.0-36.0); Mean Corpuscular Volume 78.5 fL (80.0-100.0); Mean Platelet Volume 8.7 fL (9.4-12.4); Monocytes # (auto) 0.69 K/uL (0.11-0.59); Monocytes % (auto) 11.8 %; Neutrophils # (auto) 3.53 K/uL (1.40-6.50); Neutrophils % (auto) 60.2 %; Platelet Count 975 K/uL (130-400); RDW Coefficient of Variation 16.4 % (11.5-14.5); RDW Standard Deviation 46.6 fL (36.4-46.3); Red Blood Count 3.58 M/uL (4.20-5.40); White Blood Count 5.86 K/ul (4.8-10.8)
--- NOTE | 2024-03-09 11:27 | Hospitalist Progress Note ---
Date of Service March 09, 2024 Assessment & Plan (1) Parapneumonic effusion: (2) Acute UTI: (3) Lateral malleolar fracture: (4) Fracture of proximal end of tibia: (5) Thrombocytosis: (6) Frequent falls: Plan The patient is a 68-year-old female with a past medical history including traumatic brain injury with delayed recovery, fractured scapula, multiple fractures of right sided ribs, frequent falls, generalized weakness, malnutrition, seizure history, hyponatremia, aphasia due to disease, executive function deficit, lumbar postlaminectomy syndrome and urinary incontinence. She is referred to the emergency department after being found between the toilet and wall facility for an unknown length of time after an unwitnessed fall. Staff became concerned because the patient had a simin on the right side of her face, and that she seemed more confused than her baseline. #Parapneumonic effusions bilaterally- May be an element of aspiration, does not appear volume overloaded on exam. Chest CT 03/06: moderate volume b/l new pleural effusions w/ overlying consolidation/atelectasis & corresponding interstitial infiltrates. Continue vancomycin IV. Meropenem d/c 03/08 Blood culture: MSSA. source unknown. Repeat blood cultures 03/09: Pending Pulmonary consulted for possible thoracentesis - continue diuretics, would recommend against thoracentesis. - etiology HEpEF vs hypoalbuminemia Infectious disease consulted - continue IV vancomycin. Consider thoracentesis. May need JOHN. - MRI spine (ordered) - patient was unable to tolerate due to positioning 03/09 TTE: without vegetations #Urinary tract infection- UC: strep gallalyticus Will be covered by vanco, but not source of bacteremia. #Right proximal tibial and lateral malleolar fracture- Read as possibly acute by radiology overnight Ortho evaluated patient 03/07 - no fracture identified. Likely right knee contusion and right ankle sprain. Immobilizer from ED removed - cast padding and VICKIE wrap applied for comfort. PT/OT POA reports Dr. Pereyra, [facility], had ordered a brace for her leg that was supposed to be put on at the hospital. Consider if this can be done while inpatient closer to discharge #Multiple vertebral fractures, with unclear timeframe- Patient has had significant trauma admission at [facility] in [place] in December this year Fractures at T8, L4 and L5 have been referred to but, appears to be more chronic than acute Consult orthopedic spine - recommend mobilization, no brace or surgery. Presently on a baclofen pump, Which has been recently refilled by pain management service, and reportedly is filled until appointment 03/16 #Thrombocytosis/progressive anemia- Platelets have been 298 at baseline, but on admission were 1038 Hemoglobin baseline has been 12-13, but 8.6 on admission Iron panel: transferrin sat 7%, iron 11, TIBC 160 Vitamin B12: 154, started on PO supplementation, Patient declined B12 injection. 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 No concerns myeloproliferative neoplasm. - continue to treat iron deficiency. S/p Venofer x2 - continue on PO supplementation AM CBC #Abnormal CT finding CTAP 03/06: Possible enteritis, possible large bowel loops and question of possible malignancy with anasarca GI consulted - could perform flex sigmoidoscopy later in the week, if lungs improve. Possibly 1/2 Monitor H/H, transfuse to keep hgb > 7 Monitor for signs of bleeding, none observed thus far. #Hypokalemia- Potassium 03/09: 3.3 Patient takes 10meq daily Additional 20 mill equivalents given this morning AM BMP #Hypomagnesemia- Magnesium 1.6 s/p 1 bag IV mag Mag repeted #Aphasia Chronic after stroke. Able to speak some, reliable answer yes or no questions. Able to understand/comprehend what you are saying. Communication Board for patient #Long-term disposition, patient has been seen by palliative care (wendy) in the outpatient setting Dispo: continued inpatient stay to continue further work up DVT proh: chemical held with anemia Robin updated by phone and bedside 03/08. LM 03/09 Admission and Anticipated Discharge Date Admission Date: March 07, 2024 Supervising Physician Co-Signing Physician Notes Attending Attestation - Chart reviewed in detail, care plan d/w DION Elmore. I agree w/ the gerard components of her documentation. MSSA bacteremia - source uncertain. Await MRI spine - r/o diskitis, etc. Repeat blood cx's pending. Appreciate ID consult. Possible flex sig at some point during the stay to r/o rectal ca. Evan Jerry MD Subjective Patient seen sitting up in the chair. Was unable to have her MRI secondary to pain today. Does think she may be able to lay flat if premedicated, however she does not normally sleep laying flat Denies new issues no abdominal pain, no cough, appetite is fair Telemetry sinus rhythm in the 80s Review of Systems Review of Systems: All systems reviewed & are unremarkable except as noted in Subjective Physical Exam Physical Exam: General: NAD, VS as above Resp: normal respiratory effort, lungs clear to auscultation CV: RRR, no murmur, Abd: normal bowel sounds, non tender, no hepatosplenomegaly. pain pump palpable Extremities: right leg in vickie wrap from knee to ankle with ankle brace in place. No LE edema. Neuro: A&O x3, Skin: intact, no lesions noted Results & Data Results & Data Vital Signs (Past 12 Hours) Vital Signs Temp Pulse Pulse Resp BP Pulse Ox O2 Del Method 03/09/24 07:45 98.4 F 86 18 152/85 H 94 Room Air 03/09/24 07:14 84 03/09/24 03:12 99.0 F 81 18 152/76 H 93 Room Air Laboratory Results CBC, chemistry reviewed Blood cultures reviewed Urine cultures reviewed PG Care Time/CCT Total # of Minutes Spent Total Time Spent with Patient: Total time spent is greater than 50% in coordination of care (as documented) at patient's floor/unit and/or counseling patient: Coding Level of Care Code 28685 SUB INP/OBS CARE 3/50MIN Diagnoses Parapneumonic effusion J18.9; J91.8 Acute UTI N39.0 Lateral malleolar fracture S82.61XA Encounter type: initial encounter Fracture alignment: displaced Fracture type: closed Laterality: right Fracture of proximal end of tibia S82.101A Encounter type: initial encounter Fracture morphology: unspecified fracture morphology Fracture type: closed Laterality: right Thrombocytosis D75.839 Frequent falls R29.6 (3) Lateral malleolar fracture Encounter type: initial encounter Fracture alignment: displaced Fracture type: closed Laterality: right Qualified Code(s): S82.61XA - Displaced fracture of lateral malleolus of right fibula, initial encounter for closed fracture (4) Fracture of proximal end of tibia Encounter type: initial encounter Fracture morphology: unspecified fracture morphology Fracture type: closed Laterality: right Qualified Code(s): S82.101A - Unspecified fracture of upper end of right tibia, initial encounter for closed fracture
--- NOTE | 2024-03-09 11:44 | Pharmacy Report ---
Pharmacy PK ABX Note - Date of Service March 09, 2024 - Assessment and Plan Assessment 03/09: * ID now consulted with recommendations to continue vancomycin. Repeat blood cxs pending. * Vancomycin level today 14.9- will continue current dose. 03/08: * Day #2 of Vancomycin and Meropenem. * Remains afebrile and without leukocytosis. Renal fxn stable. * 1 of 2 sets from blood cultures is growing Staph aureus which is mecA/C and MREJ negative per BCID2 panel which means this is MSSA. Urine culture positive for Streptococcus gallalyticus. * Vanc level was 10.5 mcg/mL this morning. This translates to an AUC/TAMY at steady state of 408 and only has 55% chance of maintaining an AUC/TAMY > 400. Therefore, opting to increase dose starting at noon today. * Recommendations: will recommend to primary team that meropenem be discontinued at this time as vancomycin will cover bacteremia and UTI (although, organism is urine may represent contamination rather than true infection). Should a pulmonary source be ruled out, transitioning to daptomycin will provide more predictable/achievable PK/PD parameters. Lastly, given MSSA bacteremia of unknown source in a patient with an intrathecal pain pump, would recommend an infectious disease consult. 03/07: 68 year old F receiving Vancomycin and Meropenem for treatment of HAP/UTI. * Day #1 of antimicrobial therapy. * PMHx significant for hemiplegia secondary to CVA, intrathecal pain pump containing baclofen/clonidine, anaphylactic allergy to cephalexin and resides at [facility]. * Labs/Vitals: Afebrile and without leukocytosis. Lactate normal. SCr at baseline. * Micro: Urine and Blood cultures pending. MRSA nasal swab negative. * Imaging: Bilateral parapneumonic effusions, right greater than left, per radiology. * Recommendations: Given MRSA nasal swab is negative could consider discontinuation of vancomycin at this time. Will reach out to provider. However, would not be opposed to continuing for 24 hours given possible UTI as well. Given beta-lactam allergy, meropenem is appropriate at this time. Could consider change to levofloxacin which has an oral option available when discharge is ready. Plan Vancomycin * Current regimen: 1000 mg IV every 8 hours * Random level obtained 03/09/24 resulted as 14.9 mcg/mL. This is predicted to achieve target AUC/TAMY of 400-600 mg/L.hr. Continue current dose. * Repeat random level in the next 48-72 hours or clinically indicated. Pharmacy will continue to follow and will adjust dose/frequency as necessary. Thank you. Pharmacy has transitioned to AUC monitoring for vancomycin. AUC/TAMY is the preferred PK/PD target and is associated with decreased risk of nephrotoxicity compared to traditional trough targets.
[2024-03-09] MEDS: VANCOMYCIN LEVEL ONE (12:11)
--- NOTE | 2024-03-09 13:24 | Pulmonology Progress Note ---
Date of Service March 09, 2024 Assessment & Plan (1) Pleural effusion: (2) Abnormal chest CT: Plan CT chest 03/06/2024 personally reviewed: Small to moderate bilateral pleural effusion Dependent atelectasis bilateral lower lobes Hiatal hernia Calcified mediastinal lymph nodes with no significant mediastinal lymphadenopathy 2D echo 12/17/2023: --Bilateral pleural effusion SARS COVID-19 negative 02/25/2024 Albumin 2.7 -- MSSA bacteremia Plan as per primary team Plan: In/out: -955, urine output 2650 Bedside ultrasound showed minimal bilateral pleural effusion with dependent atelectasis. The etiology for pleural effusion is likely hypoalbuminemia as well as possible HFpEF Very unlikely to have bilateral parapneumonic effusions Recommend continuing with diuretics to keep the patient negative balance She is not in any respiratory distress. Would recommend against any invasive procedure including thoracentesis 20 mg of Lasix given to the patient today. Would recommend to continue with diuretics on a daily basis No further recommendation from pulmonary perspective, will sign off Please call directly with any questions Please note the above document was generated using voice recognition software. It may contain grammatical, syntax or spelling errors.Any formal questions or concerns about the content, text or information contained within the body of this dictation should be directly addressed to the provider for clarification. Admission and Anticipated Discharge Date Admission Date: March 07, 2024 Subjective Patient seen and examined at bedside. No acute distress, notable symptoms overnight She was saturating 97% on room air with heart rate in the low 90s Denied any chest pain, no shortness of breath No abdominal or belly pain She was sitting comfortably on the chair. Review of Systems 2 Review of Systems: All systems reviewed & are unremarkable except as noted in Subjective Physical Exam 2 Physical Exam: Constitutional: No acute distress HEENT: EOMI, PERRLA Respiratory system: Decreased air entry bilaterally, no wheeze, no rhonchi, mild crackles bilateral lower lobes CVS: S1-S2 positive, no murmurs or gallops, tachycardia Abdomen: Soft, nontender, nondistended, positive bowel sounds x4 Extremities: +2 pulses bilaterally radialis/ dorsalis pedis, no cyanosis, minimal pitting edema bilateral lower extremity Neuro: Awake alert oriented x3, right-sided hemiparesis Psych: Normal mood and affect G/U: Positive [place] Skin: no rashes, warm and dry Lymphatic: no cervical or axillary lymphadenopathy Results & Data Results & Data Vital Signs (Past 12 Hours) Vital Signs Temp Pulse Pulse Resp BP Pulse Ox O2 Del Method 03/09/24 11:50 36.5 C 74 20 148/69 H 96 Room Air 03/09/24 07:45 36.9 C 86 18 152/85 H 94 Room Air 03/09/24 07:14 84 03/09/24 03:12 37.2 C 81 18 152/76 H 93 Room Air Laboratory Results 03/09/24 08:50 03/09/24 07:24 PG Care Time/CCT Total # of Minutes Spent Total Time Spent with Patient: Total time spent is greater than 50% in coordination of care (as documented) at patient's floor/unit and/or counseling patient: Coding Level of Care Code 36511 SUB INP/OBS CARE 3/50MIN Diagnoses Pleural effusion J90 Abnormal chest CT R93.89
--- NOTE | 2024-03-09 13:25 | Procedure Note ---
Procedure Note Date of Service March 09, 2024 Bedside Ultrasound: Lung: Right:-Minimal right-sided pleural effusion with dependent atelectasis, B-lines posteriorly Left:-Minimal left-sided pleural effusion with dependent atelectasis, B-lines posteriorly Please note the above document was generated using voice recognition software. It may contain grammatical, syntax or spelling errors.Any formal questions or concerns about the content, text or information contained within the body of this dictation should be directly addressed to the provider for clarification. [facility] Procedure Codes (Charges) Pulmonary/Thoracic Procedure 1: Pulmonary and Thoracic: 88824 US, Chest, real time with imaging documentation Coding CPT Codes Pulmonary/Thoracic - Pulmonary and Thoracic: 93109 US, Chest, real time with imaging documentation ([id number]) Additional Codes Date of Service (PG.SURGERY)
[2024-03-09] MEDS: FUROSEMIDE INJ 20 MG/2 ML VIAL IV SCH (16:06)
[2024-03-09] MEDS: traMADol HCL 50 MG TABLET PO PRN (21:47)
[2024-03-10 06:48] LABS: Hematocrit (blood only) 25.4 % (37.0-47.0); Hemoglobin 7.8 g/dl (12.0-16.0); Mean Corpuscular Hemoglobin 23.9 pg (25.0-34.0); Mean Corpuscular Hgb Conc 30.7 g/dL (32.0-36.0); Mean Corpuscular Volume 77.9 fL (80.0-100.0); Mean Platelet Volume 8.6 fL (9.4-12.4); Platelet Count 901 K/uL (130-400); RDW Coefficient of Variation 16.4 % (11.5-14.5); RDW Standard Deviation 46.6 fL (36.4-46.3); Red Blood Count 3.26 M/uL (4.20-5.40); White Blood Count 6.03 K/ul (4.8-10.8)
[2024-03-10 07:17] LABS: BUN Creatinine Ratio 12.9 (10-20); Calcium 8.5 mg/dl (8.6-10.3); Creatinine Clr Calc Pharmacy 124.8 ml/min; Magnesium 1.6 mg/dl (1.7-2.4); Potassium 3.6 mmol/L (3.5-5.1)
[2024-03-10] MEDS: MAGNESIUM SULFATE / D5W 1 GM/100 ML BAG IV ONE (08:55)
--- NOTE | 2024-03-10 09:10 | Communication Note ---
Date of Service: March 10, 2024 Patient is a 68 yo female with imaging concerns for rectal mass, though no mass noted on rectal exam. She continues to have ongoing pulmonary issues . When patient is optimized, she should have a flex sig (inpatient or outpatient) to investigate the abnormal CT scan of the rectum. We will follow peripherally.
[2024-03-10] MEDS: MoRPHine SULFATE 2 MG/ML CARP IV ONE (10:41)
[2024-03-10] MEDS: GADOBUTROL 65ML VIAL IV ONE (12:40)
--- NOTE | 2024-03-10 13:58 | Magnetic Resonance Report ---
MR lumbar spine wo/w con CLINICAL HISTORY: bacteremia unknown source, eval hardware/pump infec TECHNIQUE: 3 plane localizer images, sagittal T2, sagittal T1, sagittal STIR, axial T1, axial T2 joana g with postcontrast axial T1 and sagittal T1 fat-saturated sequences were obtained of the lumbar spin e, before and after intravenous administration of 12 mL of MultiHance. Comparison: Comparison is made to CT lumbar spine 02/05/2024 FINDINGS: There is extensive susceptibility artifact due to posterior fixation hardware and the exam is limited by patient motion. Within these limits, there is no abnormal enhancement or edema. The spinal ligaments are intact, without evidence of disruption or abnormal signal intensity. The spi nal cord is normal in signal intensity and there is no evidence of cord contusion. There is no eviden ce of an extradural, intradural, extramedullary or intramedullary lesion. Visualized soft tissues are normal. IMPRESSION: Limited exam without evidence of drainable fluid collection or bony edema/enhancement to suggest oste omyelitis. No definite findings of acute fracture as suggested by prior exam. ACT 112: Negative or not required by law. Electronically signed by: Dex Moon M.D. 03/10/2024 1:56 PM
--- NOTE | 2024-03-10 14:28 | Magnetic Resonance Report ---
MRI OF THE THORACIC SPINE WITH AND WITHOUT CONTRAST CLINICAL HISTORY: bacteremia unknown source, eval hardware/pump infection COMPARISON: Thoracic spine CT March 06, 2024. Chest CT November 22, 2023. Thoracic spine radiogr aphs June 26, 2018. TECHNIQUE: Utilizing a 1.5 Pamela magnet and dedicated coil, multiplanar, multiecho imaging of the th oracic spine was performed before and after the intravenous administration of 5 cc. FINDINGS: This exam is moderately compromised given difficulty positioning and artifact from the spin al hardware. There are postoperative findings consistent with T11-S1 decompression and fusion. Bilate ral pleural effusions are better depicted on prior chest CT. There are associated lower lobe airspace opacities. Please note that the lumbar spine MRI will be reported separately. Lucency adjacent to th e bilateral T11 pedicle screws is depicted on spine CT March 06, 2021. The tip of the right screw slightly extends into the disc space. There is increased fluid signal within the T10-T11 disc space. There is paravertebral edema and enhancement. There is increased T2 signal and diminished T1 signal w ithin the T10 and T11 vertebral bodies with erosion of the inferior endplate of T10 and superior endp late of T11. This erosion is new since CT of November 22, 2023. There is an associated small T2 hype rintense focus within the anterior epidural space that measures 0.9 x 0.8 x 0.2 cm. This enhances. No additional epidural abnormalities are identified. Thoracic cord signal suboptimally assessed on this exam but likely normal. This results in mild central canal narrowing. There is no severe stenosis wi thin the thoracic spine. Several old mild thoracic spine compression fractures are present. No additi onal sites of inflammation are identified within the thoracic spine. IMPRESSION: 1. Status post T11-S1 decompression and fusion. Exam compromised given difficulty positioning and art ifact from the surgical hardware. Please note that the lumbar spine MRI will be reported separately. 2. Lucency adjacent to the T11 pedicle screws, as shown on CT. Increased fluid signal within T10-T11 disc space with abnormal marrow signal within the T10 and T11 vertebral bodies with associated endpla te erosive changes which are new since CT of November 22, 2023. Associated paravertebral edema and e nhancement. Given the clinical history, the findings are suspicious for T10-T11 discitis with associa mala osteomyelitis and loosening of the T11 pedicle screws. Less likely, these findings could be asept ic and related to loosening/developing pseudarthrosis. An infectious process is the diagnosis of excl usion. Small associated abnormality within the anterior epidural space results in mild central canal stenosis. This may reflect a small developing epidural abscess or phlegmon. No severe central canal s tenosis within the thoracic spine. 3. Bilateral pleural effusions with associated lower lobe airspace opacities, better depicted on prio r CT. 4. Several old mild thoracic spine compression fractures. ACT 112: Negative or not required by law. Electronically signed by: Conner Anand M.D. 03/10/2024 2:26 PM
--- NOTE | 2024-03-10 16:58 | Infectious Disease Progress Nt ---
Date of Service March 10, 2024 Assessment & Plan (1) Fracture, thoracic vertebra, compression: (2) Abnormality of rectum: (3) Right ankle sprain: (4) Closed fracture of nasal bone: (5) Lateral malleolar fracture: (6) Thrombocytosis: (7) Pneumonia: (8) Bacteremia due to Staphylococcus: Plan This is a 68-year-old female with a past medical history of traumatic brain injury, fractured scapula, multiple fractures of the right rib, frequent falls, seizures, aphasia, executive function deficit, lumbar post laminectomy syndrome, urinary incontinence, CVA with residual R hemiparesis who presents from a long-term facility after she was found on the ground between the toilet and the wall of the facility for an unknown period of time. Patient was more confused from her baseline. Patient has expressive aphasia and cannot provide a history. History obtained from chart review. Apparently she was found to have redness and swelling of the right side of her face and right lower extremity. Patient does not remember falling. She is unable to tell me why she presented to the hospital. She tells me that she has back pain and R leg pain .. In the ED, temperature 37.3, pulse 109, RR 18, BP 120/86, O2 sats 94% on room air. Labs: WBC 9.53, hemoglobin 8.6, hematocrit 28.1, platelets 1038, sodium 129, BUN 6, creatinine 0.36, AST 10, ALT 5. Urinalysis> 50 WBC. Negative MRSA screen. COVID testing negative. Blood cultures with MSSA in 2/4 bottles. Urine culture with a streptococcus gallalyticus Ct scan of the lumbar spine shows postsurgical thoraco lumbar spine with possible L4 and L5 vertebral fractures and subtle fracture of the left sacral ala. CT scan of the thoracic spine shows a T8 vertebral endplate wedge compression/fracture of unknown age. There is no significant abnormalities of the cervical spine. R Tib-fib x-ray shows a mildly displaced intra-articular fracture of the lateral corner of the right proximal tibia. Subtle nondisplaced cortical fracture laterally of the lateral malleolus. R Ankle x-ray shows no evidence of acute fracture , however overlying cast is limiting bony details. R Knee x-ray with no evidence of acute fracture. Visible distal femur diaphysis shows instrumentation from earlier surgery without periprosthetic lucencies seen to suggest loosening or infection. CT chest shows moderate volume bilateral pleural effusions with overlying consolidations and corresponding interstitial infiltrates right greater than left. Nondisplaced old fracture of the right third rib. A T8 vertebral chronic compression fracture. CT of the face shows a right nasal bone fracture. Head CT with no evidence of acute abnormality. CT abdomen pelvis shows a moderately large sized hiatal hernia. Possible mucosal thickening of fluid/gas filled normal caliber small bowel loops/enteritis. Gas/stool-filled mild distended large bowel loops. Irregular lobulations/abdominal wall thickening of a moderately distended rectum suspicious for malignancy. She has been evaluated by orthopedics, spine surgery, heme-onc, and GI . Her RLE was dressed and casted. No surgical intervention planned to LE or spine. She may undergo a flex sig later in the week. She is receiving IV vancomycin. She has a history of PCN and cephalexin allergy. ID consulted for MSSA bacteremia. Microbiology: Urine culture 03/06 > 100 K Streptococcus gallolyticus Blood culture 03/07 04/12 bottles positive for MSSA (no resistance genes on BC ID) Blood culture 03/09 NGTD Antibiotics Meropenem 03/06 - 03/08 Levaquin 03/06 Vancomycin 03/07ongoing #MSSA bacteremia #Streptococcus gallolyticus ?Heather # Multiple fractures acute and chronic -lateral malleolus ,tibial, l4, l5 fracture, ? sacral ala fracture, T8 compression wedge fracture ,R Nasal fracture #B/L pleural effusion with associated opacities #Irregular lobulations/wall thickening of distended rectum: r/o malignancy - Strep gallolyticus ( bovis)in urine - assed with colon malignancy when in blood culture #Possible T10-T11 discitis with assed osteomyelitis and loosening of T 11 pedicle screw ( infectious vs non infectious) with ? epidural abscess of phlegmon #Spinal hardware in place # Baclofen pump #R femur hardware/instrumentation # Thrombocytosis # Cephalexin allergy : anaphylaxis # PCN Allergy : nausea Per chart - pt states her lips swell however Discussion: The source of the MSSA bacteremia is unknown, could be 2/2 spinal infection. She has multiple prosthetics/instrumentation: Spinal hardware, right femur hardware, baclofen pump. Exam significant for tenderness to palpation of BL flank and lower spine. She complains of back pain and right lo wer extremity pain. Pain may be secondary to chronic versus new fractures or developing infection. Right lower extremity is in a cast and I am unable to fully evaluate. Although she fell, there is no khadar cellulitis on the skin or open wounds that are apparent. She has BL pleural effusions with opacities, so Pneumonia is possible. Additionally, a rectal abnormality is seen on imaging--> malignancy needs to be ruled out especially in the setting of multiple fractures. I would not expect MSSA in the GI tract so it is less likely to be the source for her bacteremia. Urine culture growing Streptococcus Gallolyticus. Unclear if symptomatic given her expressive aphasia. It is noted that STREP gallolyticus ( strep bovis ) especially if in blood culture is associated with Colon malignancy. No strep gallolyticus growth in BCx to date. TTE shows no significant valvular pathology. No valvular vegetation. 03/10/24 -MRI lumbar and thoracic spine reviewed lucency noted adjacent to the T11 pedicle screws, Increased fluid signal within T10-T11 disc space with abnormal marrow signal within the T10 and T11 vertebral bodies with associated endplate erosive changes which are new since CT of November 22, 2023. C/f T10-T11 discitis with associated osteomyelitis and loosening of the T11 pedicle screws. Possible small developing epidural abscess or phlegmon -Repeat BC NGTD - Pulmonary does not rec thoracentesis Recommendations Continue IV vancomycin per pharm protocol which will cover MSSA in BC and Strep in urine ( Pcn, ceph allergy Follow up BC 03/09 to ensure clearance Will need JOHN chris if BC persistently positive Follow up flex sig chris in setting of CT imaging, Step bovis in ucx and multiple fractures--> r/o malignancy IR evaluation for thoracic spine bone biopsy: send for aerobic, anaerobic, fungal and Afb cultures. ALSO send for histopathology, r/o malignancy ID will continue to follow. Alondra Clark MD, MPH Infectious Disease [facility], ID Division Call [phone] with questions Admission and Anticipated Discharge Date Admission Date: March 07, 2024 Subjective This patient recommendation is based on a telemedicine consult request which was completed asynchronously through chart review and information provided by the primary physician. The patient was not seen or examined today. The evaluation is consultative in nature and all patient care and treatment decisions can either be accepted or rejected by the patient's primary hospital-based treating physician using their own independent medical judgment for their patient. Time Spent Reviewing Chart: 31+ minutes plts 901 Pulmonary wants to hold off on thoracentesis Repeat BC NGTD MRI spine reviewed - findings c/f T10-T11 discitis with associated osteomyelitis and loosening of the T11 pedicle screws. Possible small developing epidural abscess or phlegmon Results & Data Vital Signs (Past 12 Hours) Vital Signs Temp Pulse Pulse Resp BP Pulse Ox O2 Del Method 03/10/24 15:53 91 H 03/10/24 15:36 36.9 C 75 18 135/77 95 Room Air 03/10/24 13:25 91 H 18 133/76 95 Room Air 03/10/24 09:00 Room Air 03/10/24 08:13 37.2 C 86 20 149/79 H 94 Room Air 03/10/24 05:41 81 03/10/24 05:41 70 Laboratory Results Short CBC 03/10/24 Range/Units 06:27 WBC 6.03 (4.8-10.8) K/ul Hgb 7.8 L (12.0-16.0) g/dl Hct 25.4 L (37.0-47.0) % Plt Count 901 H (130-400) K/uL BMP 03/10/24 06:27 Sodium 134 L Potassium 3.6 Chloride 98 Carbon Dioxide 30 BUN 4 L Creatinine 0.31 L Glucose 94 Calcium 8.5 L Diagnostic Findings Microbiology 03/09/24 07:24 Blood Aerobic Blood Culture - Preliminary No growth in Aerobic bottle after 24 hours. 03/09/24 07:24 Blood Anaerobic Blood Culture - Preliminary No growth in Anaerobic bottle after 24 hours. 03/09/24 07:36 Blood Aerobic Blood Culture - Preliminary No growth in Aerobic bottle after 24 hours. 03/09/24 07:36 Blood Anaerobic Blood Culture - Preliminary No growth in Anaerobic bottle after 24 hours. 03/07/24 00:09 Blood Aerobic Blood Culture - Preliminary Gram positive cocci clusters 03/07/24 00:09 Blood Anaerobic Blood Culture - Preliminary Staphylococcus aureus 03/07/24 00:23 Blood Aerobic Blood Culture - Preliminary No growth in Aerobic bottle after 48 hours. 03/07/24 00:23 Blood Anaerobic Blood Culture - Final 03/06/24 21:29 Urine,Straight Cath Urine Culture - Final Streptococcus gallalyticus Chest X-Ray 03/08/24 11:19 XR chest 1V portable CLINICAL HISTORY: recheck effusions COMPARISON STUDY: Chest CT March 06, 2024. FINDINGS: This exam is mildly compromised given difficulty positioning. Postoperative findings within the spine are noted. Old right-sided rib fractures are noted as well as old fractures of the right clavicle and scapula. There is no pneumothorax. [id number] bilateral pleural effusions with associated bibasilar opacities are similar to prior CT. Pulmonary edema has mildly progressed. Cardiac mediastinal fluid is stable. IMPRESSION: 1. [id number] bilateral pleural effusions with associated bibasilar opacities, similar to prior CT. 2. Progression of pulmonary edema. ACT 112: Negative or not required by law. Electronically signed by: Conner Anand M.D. 03/08/2024 12:07 PM Chest/Abdomen X-ray 03/09/24 13:40 PA CHEST RADIOGRAPH AND UPRIGHT AND SUPINE AP RADIOGRAPHS OF THE ABDOMEN CLINICAL HISTORY: Colonic distention PAIN PUMP POSITION FOR MRI COMPARISON STUDY: Chest radiograph March 08, 2024. CT of the chest, abdomen and pelvis March 06, 2024. FINDINGS: There is no pneumothorax. Pulmonary edema has progressed. Moderate bilateral pleural effusions with associated bibasilar opacities have increased. Cardiomegaly. Postoperative findings within the spine are noted. There is a right femoral internal fixation. Orientation of the left lower quadrant pain pump is normal. The entirety of the catheter is not well visualized on this exam. No contraindication to MRI within the chest, abdomen or pelvis. There is no free air. There is no radiographic evidence for a bowel obstruction. IMPRESSION: 1. Normal orientation of the left lower quadrant pain pump. No contraindication to MRI within the chest, abdomen or pelvis. 2. Progression of pulmonary edema with moderate bilateral pleural effusions and associated bibasilar opacities. 3. No free air or evidence for a bowel obstruction. ACT 112: Negative or not required by law. Electronically signed by: Conner Anand M.D. 03/09/2024 8:47 AM Lumbar Spine MRI 03/10/24 06:51 MR lumbar spine wo/w con CLINICAL HISTORY: bacteremia unknown source, eval hardware/pump infec TECHNIQUE: 3 plane localizer images, sagittal T2, sagittal T1, sagittal STIR, axial T1, axial T2 along with postcontrast axial T1 and sagittal T1 fat- saturated sequences were obtained of the lumbar spine, before and after intravenous administration of 12 mL of MultiHance. Comparison: Comparison is made to CT lumbar spine 02/05/2024 FINDINGS: There is extensive susceptibility artifact due to posterior fixation hardware and the exam is limited by patient motion. Within these limits, there is no abnormal enhancement or edema. The spinal ligaments are intact, without evidence of disruption or abnormal signal intensity. The spinal cord is normal in signal intensity and there is no evidence of cord contusion. There is no evidence of an extradural, intradural, extramedullary or intramedullary lesion. Visualized soft tissues are normal. IMPRESSION: Limited exam without evidence of drainable fluid collection or bony edema/enhancement to suggest osteomyelitis. No definite findings of acute f racture as suggested by prior exam. ACT 112: Negative or not required by law. Electronically signed by: Dex Moon M.D. 03/10/2024 1:56 PM Thoracic Spine MRI 03/10/24 06:52 MRI OF THE THORACIC SPINE WITH AND WITHOUT CONTRAST CLINICAL HISTORY: bacteremia unknown source, eval hardware/pump infection COMPARISON: Thoracic spine CT March 06, 2024. Chest CT November 22, 2023. Thoracic spine radiographs June 26, 2018. TECHNIQUE: Utilizing a 1.5 Pamela magnet and dedicated coil, multiplanar, multiecho imaging of the thoracic spine was performed before and after the intravenous administration of 5 cc. FINDINGS: This exam is moderately compromised given difficulty positioning and artifact from the spinal hardware. There are postoperative findings consistent with T11-S1 decompression and fusion. Bilateral pleural effusions are better depicted on prior chest CT. There are associated lower lobe airspace opacities. Please note that the lumbar spine MRI will be reported separately. Lucency adjacent to the bilateral T11 pedicle screws is depicted on spine CT March 06, 2021. The tip of the right screw slightly extends into the disc space. There is increased fluid signal within the T10-T11 disc space. There is paravertebral edema and enhancement. There is increased T2 signal and diminished T1 signal within the T10 and T11 vertebral bodies with erosion of the inferior endplate of T10 and superior endplate of T11. This erosion is new since CT of November 22, 2023. There is an associated small T2 hyperintense focus within the anterior epidural space that measures 0.9 x 0.8 x 0.2 cm. This enhances. No additional epidural abnormalities are identified. Thoracic cord signal suboptimally assessed on this exam but likely normal. This results in mild central canal narrowing. There is no severe stenosis within the thoracic spine. Several old mild thoracic spine compression fractures are present. No additional sites of inflammation are identified within the thoracic spine. IMPRESSION: 1. Status post T11-S1 decompression and fusion. Exam compromised given difficulty positioning and artifact from the surgical hardware. Please note that the lumbar spine MRI will be reported separately. 2. Lucency adjacent to the T11 pedicle screws, as shown on CT. Increased fluid signal within T10-T11 disc space with abnormal marrow signal within the T10 and T11 vertebral bodies with associated endplate erosive changes which are new since CT of November 22, 2023. Associated paravertebral edema and enhancement. Given the clinical history, the findings are suspicious for T10-T11 discitis with associated osteomyelitis and loosening of the T11 pedicle screws. Less likely, these findings could be aseptic and related to loosening/developing pseudarthrosis. An infectious process is the diagnosis of exclusion. Small associated abnormality within the anterior epidural space results in mild central canal stenosis. This may reflect a small developing epidural abscess or phlegmon. No severe central canal stenosis within the thoracic spine. 3. Bilateral pleural effusions with associated lower lobe airspace opacities, better depicted on prior CT. 4. Several old mild thoracic spine compression fractures. ACT 112: Negative or not required by law. Electronically signed by: Conner Anand M.D. 03/10/2024 2:26 PM Medications Administered Home Medications Medication Instructions Recorded Confirmed Last Taken baclofen 10 mg tablet 10 mg PO DAILY PRN spasms #90 tabs 12/01/22 03/07/24 Unknown celecoxib 200 mg capsule 200 mg PO QAM #90 caps 03/20/23 03/07/24 11/05/23 clopidogrel 75 mg tablet 75 mg PO HS #90 tabs 03/20/23 03/07/24 11/05/23 atorvastatin 10 mg tablet 10 mg PO [id number] 09/28/23 03/07/24 11/04/23 duloxetine 30 mg capsule,delayed 30 mg PO DAILY #30 caps 11/12/23 03/07/24 Unknown release (Cymbalta) cholecalciferol (vitamin D3) 25 25 mcg PO DAILY 02/18/24 03/07/24 Unknown mcg (1,000 unit) capsule docusate sodium 100 mg capsule 100 mg PO BID 02/18/24 03/07/24 Unknown enoxaparin 30 mg/0.3 mL 30 mg subcut BID 02/18/24 03/07/24 Unknown subcutaneous syringe (Lovenox) lidocaine 4 % topical patch 1 patch topical DAILY 02/18/24 03/07/24 Unknown (Aspercreme (lidocaine)) ondansetron HCl 4 mg tablet 4 mg PO Q4H PRN Nausea And Vomiting 02/18/24 03/07/24 Unknown sennosides 8.6 mg tablet (Senokot) 17.2 mg PO BID 02/18/24 03/07/24 Unknown Wheelchair (Manual) #1 ea 02/25/24 02/25/24 Unknown denosumab 60 mg/mL subcutaneous 60 mg subcut UD 03/07/24 03/07/24 Unknown syringe (Prolia) morphine concentrate 100 mg/5 mL 10 mg PO Q1H PRN SOB/Pain 03/07/24 03/07/24 Unknown (20 mg/mL) oral solution sodium chloride 1 gram tablet 2,000 mg PO BID 03/07/24 03/07/24 Unknown tramadol 50 mg tablet 50 mg PO Q8H PRN Severe Pain 03/07/24 03/07/24 Unknown (Scale Score 7-10) Active Medications Generic Name Dose Route Start Last Admin Trade Name Freq PRN Reason Stop Dose Admin Acetaminophen 650 mg 03/07/24 03:09 03/10/24 03:50 Acetaminophen 325 Mg Tab PO 04/06/24 03:08 650 mg Q4H PRN Administration Pain or Fever Atorvastatin Calcium 10 mg 03/07/24 09:00 03/09/24 08:04 Atorvastatin 10 Mg Tab PO 04/06/24 08:59 10 mg [id number] FREDO Administration Cyanocobalamin 100 mcg 03/08/24 09:00 03/10/24 08:57 Cyanocobalamin (B-12) 100 Mcg Tablet PO 04/07/24 08:59 100 mcg QAM FREDO Administration Docusate Sodium 100 mg 03/07/24 09:00 03/10/24 09:52 Docusate Sodium 100 Mg Cap PO 04/06/24 08:59 Not Given BID FREDO Duloxetine HCl 30 mg 03/07/24 09:00 03/10/24 08:57 Duloxetine Hcl 30 Mg Cap PO 04/06/24 08:59 30 mg DAILY FREDO Administration Enoxaparin Sodium 30 mg 03/07/24 09:00 03/10/24 08:56 Enoxaparin Inj 30 Mg/0.3 Ml Syr SQ 04/06/24 08:59 30 mg BID FREDO Administration Ferrous Sulfate 325 mg 03/09/24 09:00 03/10/24 08:57 Ferrous Sulfate 325 Mg Tab PO 04/08/24 08:59 325 mg QAM FREDO Administration Furosemide 20 mg 03/09/24 15:30 03/10/24 08:55 Furosemide Inj 20 Mg/2 Ml Vial IV 04/08/24 15:29 20 mg QAM FREDO Administration Vancomycin HCl 1,000 mg in 270 mls @ 200 mls/hr 03/08/24 12:00 03/10/24 15:03 Vancomycin Hcl IV 03/22/24 11:59 Infused Q8H FREDO Infusion Lidocaine 1 patch 03/07/24 09:00 03/10/24 08:56 Lidocaine 5% 1 Patch TD 04/06/24 08:59 1 patch QAM FREDO Administration Potassium Chloride 10 meq 03/07/24 09:00 03/10/24 08:55 Potassium Chloride 10 Meq Tabcr PO 04/06/24 08:59 10 meq DAILY FREDO Administration Sennosides 17.2 mg 03/07/24 09:00 03/10/24 09:52 Senna 8.6 Mg Tab PO 04/06/24 08:59 Not Given BID FREDO Sodium Chloride 2 gm 03/07/24 09:00 03/10/24 08:56 Sodium Chloride 1 Gm Tablet PO 04/06/24 08:59 2 gm BID FREDO Administration Tramadol HCl 50 mg 03/09/24 21:12 03/10/24 13:23 Tramadol Hcl 50 Mg Tablet PO 04/08/24 21:11 50 mg Q6H PRN Administration Pain Vitamin D 25 mcg 03/07/24 09:00 03/10/24 08:57 Cholecalciferol 25 Mcg (1000 Units) Tab PO 04/06/24 08:59 25 mcg DAILY FREDO Administration (7) Pneumonia Laterality: unspecified laterality Lung location: unspecified part of lung Pneumonia type: due to unspecified organism Qualified Code(s): J18.9 - Pneumonia, unspecified organism
--- NOTE | 2024-03-10 18:31 | Hospitalist Progress Note ---
Date of Service March 10, 2024 Assessment & Plan (1) Parapneumonic effusion: (2) Acute UTI: (3) Lateral malleolar fracture: (4) Fracture of proximal end of tibia: (5) Thrombocytosis: (6) Frequent falls: Plan The patient is a 68-year-old female with a past medical history including traumatic brain injury with delayed recovery, fractured scapula, multiple fractures of right sided ribs, frequent falls, generalized weakness, malnutrition, seizure history, hyponatremia, aphasia due to disease, executive function deficit, lumbar postlaminectomy syndrome and urinary incontinence. She is referred to the emergency department after being found between the toilet and wall facility for an unknown length of time after an unwitnessed fall. Staff became concerned because the patient had a simin on the right side of her face, and that she seemed more confused than her baseline. #Parapneumonic effusions bilaterally- May be an element of aspiration, does not appear volume overloaded on exam. Chest CT 03/06: moderate volume b/l new pleural effusions w/ overlying consolidation/atelectasis & corresponding interstitial infiltrates. Continue vancomycin IV. Meropenem d/c 03/08 Blood culture: MSSA. source unknown. Repeat blood cultures 03/09: no growth 24 hours Pulmonary consulted for possible thoracentesis - continue diuretics, would recommend against thoracentesis. etiology HEpEF vs hypoalbuminemia Infectious disease consulted - continue IV vancomycin. Consider thoracentesis. May need JOHN. - IR evaluation for bone bx - will plan to reach out tomorrow TTE: without vegetations MRI spine: changes at T10/T11 associate with hardware, concern for osteomyelitis. Possible Small developing abscess or phlegmon - pain management aware of completed MRI and will check pain pump AM 03/11 #Urinary tract infection- UC: strep gallalyticus Will be covered by vanco, but not source of bacteremia. #Right proximal tibial and lateral malleolar fracture- Read as possibly acute by radiology overnight Ortho evaluated patient 03/07 - no fracture identified. Likely right knee contusion and right ankle sprain. Immobilizer from ED removed - cast padding and VICKIE wrap applied for comfort. PT/OT POA reports Dr. Pereyra, [facility], had ordered a brace for her leg that was supposed to be put on at the hospital. Consider if this can be done while inpatient closer to discharge #Multiple vertebral fractures, with unclear timeframe- Patient has had significant trauma admission at [facility] in [place] in December this year. Prior back surgeries with Dr. Mesa ([facility]) Fractures at T8, L4 and L5 have been referred to but, appears to be more chronic than acute Consult orthopedic spine - recommend mobilization, no brace or surgery. Presently on a baclofen pump, Which has been recently refilled by pain management service, and reportedly is filled until appointment 03/[address] Townsend about MRI findings, currently out of town. Unable to connect today - will attempt to call again tomorrow. #Thrombocytosis/progressive anemia- Platelets have been 298 at baseline, but on admission were 1038 Hemoglobin baseline has been 12-13, but 8.6 on admission Iron panel: transferrin sat 7%, iron 11, TIBC 160 Vitamin B12: 154, started on PO supplementation, Patient declined B12 injection. 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 No concerns myeloproliferative neoplasm. - continue to treat iron deficiency. S/p Venofer x2 - continue on PO supplementation AM CBC #Abnormal CT finding CTAP 03/06: Possible enteritis, possible large bowel loops and question of possible malignancy with anasarca GI consulted - could perform flex sigmoidoscopy later in inpatient stay if more stable, otherwise can be done outpatient. Hgb has been stable, no signs of bleeding. #Hypokalemia- Patient takes 10meq daily replaced PO and now potassium is replete #Hypomagnesemia- Magnesium 1.6 s/p 1 bag IV mag again today AM Mag #Aphasia Chronic after stroke. Able to speak some, reliable answer yes or no questions. Able to understand/comprehend what you are saying. Communication Board for patient #Long-term disposition, patient has been seen by palliative care (wendy) in the outpatient setting PT/OT - recommend return to [facility] but unable to do so if on IV antibiotics Dispo: continued inpatient stay to continue further work up DVT proh: chemical held with abraham Theodore updated by phone and bedside 03/08 and 03/10. LM 03/[address] Scott, ID Admission and Anticipated Discharge Date Admission Date: March 07, 2024 Supervising Physician Co-Signing Physician Notes Attending Attestation - Chart reviewed in detail, care plan d/w PA Johanny Malackowski. I agree w/ the gerard components of her documentation. Highly complex patient with numerous active issues. MRI T & L spine completed - IMPRESSION: 1. Status post T11-S1 decompression and fusion. Exam compromised given difficulty positioning and artifact from the surgical hardware. Please note that the lumbar spine MRI will be reported separately. 2. Lucency adjacent to the T11 pedicle screws, as shown on CT. Increased fluid signal within T10-T11 disc space with abnormal marrow signal within the T10 and T11 vertebral bodies with associated endplate erosive changes which are new since CT of November 22, 2023. Associated paravertebral edema and enhancement. Given the clinical history, the findings are suspicious for T10-T11 discitis with associated osteomyelitis and loosening of the T11 pedicle screws. Less likely, these findings could be aseptic and related to loosening/developing pseudarthrosis. An infectious process is the diagnosis of exclusion. Small associated abnormality within the anterior epidural space results in mild central canal stenosis. This may reflect a small developing epidural abscess or phlegmon. No severe central canal stenosis within the thoracic spine. Thus, source of MSSA bacteremia may be due to thoracic spine infection (diskitis, hardware infection, possible epidural abscess). Unfortunately ortho-spine is not available at this time. May need IR biopsy with culture of t-spine at T10-T11. Repeat blood cx's from 03/09/24 thus far negative. Appreciate ID consult and recs. Evan Jerry MD Subjective patient seen lying in bed. Has no complaints at this time. Agreeable to MRI with premedication. Denies abdominal pain currently aware that GI is not planning to do biopsy while inpatient. Denies any pain in her right leg with the knee bruise or ankle sprain. Telemetry sinus rhythm in the 80s Review of Systems Review of Systems: All systems reviewed & are unremarkable except as noted in Subjective Physical Exam Physical Exam: General: NAD, VS as above Resp: normal respiratory effort, lungs clear to auscultation CV: RRR, no murmur, Abd: normal bowel sounds, non tender, no hepatosplenomegaly. pain pump palpable Extremities: right leg in vickie wrap from knee to ankle with ankle brace in place. No LE edema. Neuro: A&O x3, Skin: intact, no lesions noted Results & Data Results & Data Vital Signs (Past 12 Hours) Vital Signs Temp Pulse Pulse Resp BP Pulse Ox O2 Del Method 03/10/24 15:53 91 H 03/10/24 15:36 98.4 F 75 18 135/77 95 Room Air 03/10/24 13:25 91 H 18 133/76 95 Room Air 03/10/24 09:00 Room Air 03/10/24 08:13 99.0 F 86 20 149/79 H 94 Room Air Laboratory Results CBC, chemistry reviewed Blood cultures and repeat blood cultures reviewed PG Care Time/CCT Total # of Minutes Spent Total Time Spent with Patient: Total time spent is greater than 50% in coordination of care (as documented) at patient's floor/unit and/or counseling patient: Coding Level of Care Code 15035 SUB INP/OBS CARE 3/50MIN Diagnoses Parapneumonic effusion J18.9; J91.8 Acute UTI N39.0 Lateral malleolar fracture S82.61XA Encounter type: initial encounter Fracture alignment: displaced Fracture type: closed Laterality: right Fracture of proximal end of tibia S82.101A Encounter type: initial encounter Fracture morphology: unspecified fracture morphology Fracture type: closed Laterality: right Thrombocytosis D75.839 Frequent falls R29.6 (3) Lateral malleolar fracture Encounter type: initial encounter Fracture alignment: displaced Fracture type: closed Laterality: right Qualified Code(s): S82.61XA - Displaced fracture of lateral malleolus of right fibula, initial encounter for closed fracture (4) Fracture of proximal end of tibia Encounter type: initial encounter Fracture morphology: unspecified fracture morphology Fracture type: closed Laterality: right Qualified Code(s): S82.101A - Unspecified fracture of upper end of right tibia, initial encounter for closed fracture
[2024-03-11 06:22] LABS: Basophils # (auto) 0.07 K/uL (0.00-0.20); Eosinophils # (auto) 0.56 K/uL (0.00-0.50); Eosinophils % (auto) 8.3 %; Hematocrit (blood only) 27.7 % (37.0-47.0); Hemoglobin 8.2 g/dl (12.0-16.0); Immature Granulocytes # (auto) 0.02 K/uL (0.01-0.20); Immature Granulocytes % (auto) 0.3 %; Lymphocytes # (auto) 1.57 K/uL (1.20-3.40); Lymphocytes % (auto) 23.4 %; Mean Corpuscular Hemoglobin 23.4 pg (25.0-34.0); Mean Corpuscular Hgb Conc 29.6 g/dL (32.0-36.0); Mean Corpuscular Volume 79.1 fL (80.0-100.0); Mean Platelet Volume 8.5 fL (9.4-12.4); Monocytes # (auto) 0.96 K/uL (0.11-0.59); Monocytes % (auto) 14.3 %; Neutrophils # (auto) 3.53 K/uL (1.40-6.50); Neutrophils % (auto) 52.7 %; Platelet Count 867 K/uL (130-400); RDW Coefficient of Variation 16.9 % (11.5-14.5); RDW Standard Deviation 47.3 fL (36.4-46.3); White Blood Count 6.71 K/ul (4.8-10.8)
[2024-03-11 06:32] LABS: BUN Creatinine Ratio 20.7 (10-20); Calcium 8.6 mg/dl (8.6-10.3); Creatinine Clr Calc Pharmacy 133.4 ml/min; Magnesium 1.7 mg/dl (1.7-2.4); Potassium 3.5 mmol/L (3.5-5.1)
--- NOTE | 2024-03-11 08:03 | Pain Management Consultation ---
Date of Consultation March 11, 2024 Assessment & Plan (1) Hemiplegia: Hemiplegia type: spastic Hemiplegia etiology: late effect of cerebrovascular disease Hemiplegia laterality: right dominant side (2) History of CVA (cerebrovascular accident): (3) Presence of intrathecal pump: Plan Intrathecal pump was interrogated post MRI and has recovered on 03/10/24 at 1352. Pump alarms 04/02/24. Will observe peripherally to see if her pump refill scheduled for 03/16/24 will need pushed out due to her current medical issues. History of Present Illness Attending Physician: Evan Jerry MD Allergies Allergy/AdvReac Type Severity Reaction Status Date / Time cephalexin Allergy Severe Anaphylaxis Verified 02/25/24 10:29 Penicillins AdvReac Mild nausea Verified 02/25/24 10:29 Home Medications Medication Instructions Recorded Confirmed Type baclofen 10 mg tablet 10 mg PO DAILY PRN spasms #90 tabs 12/01/22 03/07/24 Rx celecoxib 200 mg capsule 200 mg PO QAM #90 caps 03/20/23 03/07/24 Rx clopidogrel 75 mg tablet 75 mg PO HS #90 tabs 03/20/23 03/07/24 Rx atorvastatin 10 mg tablet 10 mg PO 3XWK 09/28/23 03/07/24 History duloxetine 30 mg capsule,delayed 30 mg PO DAILY #30 caps 11/12/23 03/07/24 Rx release (Cymbalta) cholecalciferol (vitamin D3) 25 25 mcg PO DAILY 02/18/24 03/07/24 History mcg (1,000 unit) capsule docusate sodium 100 mg capsule 100 mg PO BID 02/18/24 03/07/24 History enoxaparin 30 mg/0.3 mL 30 mg subcut BID 02/18/24 03/07/24 History subcutaneous syringe (Lovenox) lidocaine 4 % topical patch 1 patch topical DAILY 02/18/24 03/07/24 History (Aspercreme (lidocaine)) ondansetron HCl 4 mg tablet 4 mg PO Q4H PRN Nausea And Vomiting 02/18/24 03/07/24 History sennosides 8.6 mg tablet (Senokot) 17.2 mg PO BID 02/18/24 03/07/24 History Wheelchair (Manual) #1 ea 02/25/24 02/25/24 Rx denosumab 60 mg/mL subcutaneous 60 mg subcut UD 03/07/24 03/07/24 History syringe (Prolia) morphine concentrate 100 mg/5 mL 10 mg PO Q1H PRN SOB/Pain 03/07/24 03/07/24 History (20 mg/mL) oral solution sodium chloride 1 gram tablet 2,000 mg PO BID 03/07/24 03/07/24 History tramadol 50 mg tablet 50 mg PO Q8H PRN Severe Pain 03/07/24 03/07/24 History (Scale Score 7-10) Patient History Medical History Headache, post-traumatic, acute Vascular dementia B12 deficiency expressive aphasia Aphasia, post-stroke Hemiparesis affecting right side as late effect of cerebrovascular accident Aphasia as late effect of cerebrovascular accident History of cerebrovascular accident from left carotid artery occlusion involving left middle cerebral artery territory Hemiplegia Right side > wears AFO brace on RLE, no control of right arm History of CVA (cerebrovascular accident) 1998 large left MCA territory in setting of occluded left carotid potentially related to oral contraception at that time > chronic spastic right hemiparesis, flaccid upper limb and mild to moderate expressive aphasia > on plavix > follows with [place] neuro Fall External constriction of left ring finger, initial encounter Sciatica Osteoporosis with fracture Hyperplastic colon polyp Ring or other jewelry causing external constriction, initial encounter Fall Closed femur fracture Memory loss Left carotid artery occlusion Vasovagal syncope if not laying flat during blood draws Encounter for pre-operative examination Memory problem History of depression 1998 per pt Hypertension controlled, stable per pt Chronic constipation with overflow 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 (CVA) 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 (CVA) CVA (cerebral vascular accident) Laceration of eyebrow, right Head trauma Osteoporosis Stroke Surgical History Presence of intrathecal pump Family history of reaction to anesthesia Mother: slow to wake History of gynecologic surgery Labial "removal" History of back surgery Lumbar fusion x2 History of colonoscopy History of tooth extraction History of tonsillectomy Family History Father Cancer Family history of esophageal cancer Other No pertinent family history Denies family history of Ovarian cancer Prostate cancer Diabetes Myocardial infarction Breast cancer Colorectal cancer Hypertension Social History Smoking Status: Never smoker Tobacco Type: Declines Age Started Using Tobacco: 12; Age Quit Using Tobacco: 22; packs per day: 0.1; Second Hand Exposure: No; Do You Dip or Chew Tobacco: No; Hx Alcohol Use: No Hx Substance Use: No Preferred Language: [place] Communication Ability: Impaired Communication Ability Comment: Expressive aphasia from previous CVA Visual Impairment: Limited Leasing Director 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 Beliefs That Will Affect Care: None marital status: Single Current Living Situation: Senior Care Current Living Situation Comment: [place] current occupational status: retired How many Children do You have: 0 Feels Safe at Home: Yes Childhood Exposure to Second-Hand Smoke: Yes caffeine: Yes (coffee) Dental Care, Regularly: Yes Physical Activity Frequency: Daily Seatbelt Use: always Sunscreen Use: Yes Assistive Devices: Wheelchair
[2024-03-11] MEDS: VANCOMYCIN LEVEL ONE (12:40)
--- NOTE | 2024-03-11 13:02 | Pharmacy Report ---
Pharmacy PK ABX Note - Date of Service March 11, 2024 - Assessment and Plan Assessment 03/11: * Continues on vancomycin per ID recommendation, repeat cultures negative at 48 hours * vancomycin level 18.9- continue current dose 03/09: * ID now consulted with recommendations to continue vancomycin. Repeat blood cxs pending. * Vancomycin level today 14.9- will continue current dose. 03/08: * Day #2 of Vancomycin and Meropenem. * Remains afebrile and without leukocytosis. Renal fxn stable. * 1 of 2 sets from blood cultures is growing Staph aureus which is mecA/C and MREJ negative per BCID2 panel which means this is MSSA. Urine culture positive for Streptococcus gallalyticus. * Vanc level was 10.5 mcg/mL this morning. This translates to an AUC/TAMY at steady state of 408 and only has 55% chance of maintaining an AUC/TAMY > 400. Therefore, opting to increase dose starting at noon today. * Recommendations: will recommend to primary team that meropenem be discontinued at this time as vancomycin will cover bacteremia and UTI (although, organism is urine may represent contamination rather than true infection). Should a pulmonary source be ruled out, transitioning to daptomycin will provide more predictable/achievable PK/PD parameters. Lastly, given MSSA bacteremia of unknown source in a patient with an intrathecal pain pump, would recommend an infectious disease consult. 03/07: 68 year old F receiving Vancomycin and Meropenem for treatment of HAP/UTI. * Day #1 of antimicrobial therapy. * PMHx significant for hemiplegia secondary to CVA, intrathecal pain pump containing baclofen/clonidine, anaphylactic allergy to cephalexin and resides at [facility]. * Labs/Vitals: Afebrile and without leukocytosis. Lactate normal. SCr at baseline. * Micro: Urine and Blood cultures pending. MRSA nasal swab negative. * Imaging: Bilateral parapneumonic effusions, right greater than left, per radiology. * Recommendations: Given MRSA nasal swab is negative could consider discontinuation of vancomycin at this time. Will reach out to provider. However, would not be opposed to continuing for 24 hours given possible UTI as well. Given beta-lactam allergy, meropenem is appropriate at this time. Could consider change to levofloxacin which has an oral option available when discharge is ready. Plan Vancomycin * Current regimen: 1000 mg IV every 8 hours * Random level obtained 03/11/24 resulted as 18.9 mcg/mL. This is predicted to achieve target AUC/TAMY of 400-600 mg/L.hr. Continue current dose. * Repeat random level in the next 48-72 hours or clinically indicated. Pharmacy will continue to follow and will adjust dose/frequency as necessary. Thank you. Pharmacy has transitioned to AUC monitoring for vancomycin. AUC/TAMY is the preferred PK/PD target and is associated with decreased risk of nephrotoxicity compared to traditional trough targets.
--- NOTE | 2024-03-11 14:15 | Infectious Disease Progress Nt ---
Date of Service March 11, 2024 Assessment & Plan (1) Fracture, thoracic vertebra, compression: (2) Abnormality of rectum: (3) Right ankle sprain: (4) Closed fracture of nasal bone: (5) Lateral malleolar fracture: (6) Thrombocytosis: (7) Pneumonia: (8) Bacteremia due to Staphylococcus: Plan This is a 68-year-old female with a past medical history of traumatic brain injury, fractured scapula, multiple fractures of the right rib, frequent falls, seizures, aphasia, executive function deficit, lumbar post laminectomy syndrome, urinary incontinence, CVA with residual R hemiparesis who presents from a shelter facility after she was found on the ground between the toilet and the wall of the facility for an unknown period of time. Patient was more confused from her baseline. Patient has expressive aphasia and cannot provide a history. History obtained from chart review. Apparently she was found to have redness and swelling of the right side of her face and right lower extremity. Patient does not remember falling. She is unable to tell me why she presented to the hospital. She tells me that she has back pain and R leg pain .. In the ED, temperature 37.3, pulse 109, RR 18, BP 120/86, O2 sats 94% on room air. Labs: WBC 9.53, hemoglobin 8.6, hematocrit 28.1, platelets 1038, sodium 129, BUN 6, creatinine 0.36, AST 10, ALT 5. Urinalysis> 50 WBC. Negative MRSA screen. COVID testing negative. Blood cultures with MSSA in 2/4 bottles. Urine culture with a streptococcus gallolyticus Ct scan of the lumbar spine shows postsurgical thoraco lumbar spine with possible L4 and L5 vertebral fractures and subtle fracture of the left sacral ala. CT scan of the thoracic spine shows a T8 vertebral endplate wedge compression/fracture of unknown age. There is no significant abnormalities of the cervical spine. R Tib-fib x-ray shows a mildly displaced intra-articular fracture of the lateral corner of the right proximal tibia. Subtle nondisplaced cortical fracture laterally of the lateral malleolus. R Ankle x-ray shows no evidence of acute fracture , however overlying cast is limiting bony details. R Knee x-ray with no evidence of acute fracture. Visible distal femur diaphysis shows instrumentation from earlier surgery without periprosthetic lucencies seen to suggest loosening or infection. CT chest shows moderate volume bilateral pleural effusions with overlying consolidations and corresponding interstitial infiltrates right greater than left. Nondisplaced old fracture of the right third rib. A T8 vertebral chronic compression fracture. CT of the face shows a right nasal bone fracture. Head CT with no evidence of acute abnormality. CT abdomen pelvis shows a moderately large sized hiatal hernia. Possible mucosal thickening of fluid/gas filled normal caliber small bowel loops/enteritis. Gas/stool-filled mild distended large bowel loops. Irregular lobulations/abdominal wall thickening of a moderately distended rectum suspicious for malignancy. She has been evaluated by orthopedics, spine surgery, heme-onc, and GI . Her RLE was dressed and casted. No surgical intervention planned to LE or spine. She may undergo a flex sig later in the week. She is receiving IV vancomycin. She has a history of PCN and cephalexin allergy. ID consulted for MSSA bacteremia. Microbiology: Urine culture 03/06 > 100 K Streptococcus gallolyticus Blood culture 03/07 03/12 bottles positive for MSSA and / GPC in clusters not yet ided Blood culture 03/09 NGTD Antibiotics Meropenem 03/06 - 03/08 Levaquin 03/06 Vancomycin 03/07ongoing #MSSA bacteremia #Streptococcus gallolyticus ?UTI # Multiple fractures acute and chronic -lateral malleolus ,tibial, l4, l5 fracture, ? sacral ala fracture, T8 compression wedge fracture ,R Nasal fracture #B/L pleural effusion with associated opacities #Irregular lobulations/wall thickening of distended rectum: r/o malignancy - Strep gallolyticus ( bovis)in urine - assed with colon malignancy when in blood culture #Possible T10-T11 discitis with assed osteomyelitis and loosening of T 11 pedicle screw ( infectious vs non infectious) with ? epidural abscess of phlegmon #Spinal hardware in place # Baclofen pump #R femur hardware/instrumentation # Thrombocytosis # Cephalexin allergy : anaphylaxis # PCN Allergy : nausea Per chart - pt states her lips swell however Discussion: The source of the MSSA bacteremia is unknown, could be 2/2 spinal infection. She has multiple prosthetics/instrumentation: Spinal hardware, right femur hardware, baclofen pump. Exam significant for tenderness to palpation of BL flank and lower spine. She complains of back pain and right lower extremity pain. Pain may be secondary to chronic versus new fractures or developing infection. Right lower extremity is in a cast and I am unable to fully evaluate. Although she fell, there is no khadar cellulitis on the skin or open wounds that are apparent. She has BL pleural effusions with opacities, so Pneumonia is possible. Additionally, a rectal abnormality is seen on imagin g--> malignancy needs to be ruled out especially in the setting of multiple fractures. I would not expect MSSA in the GI tract so it is less likely to be the source for her bacteremia. Urine culture growing Streptococcus Gallolyticus. Unclear if symptomatic given her expressive aphasia. It is noted that STREP gallolyticus ( strep bovis ) especially if in blood culture is associated with Colon malignancy. No strep gallolyticus growth in BCx to date. TTE shows no significant valvular pathology. No valvular vegetation. 03/10/24 -MRI lumbar and thoracic spine reviewed lucency noted adjacent to the T11 pedicle screws, Increased fluid signal within T10-T11 disc space with abnormal marrow signal within the T10 and T11 vertebral bodies with associated endplate erosive changes which are new since CT of November 22, 2023. C/f T10-T11 discitis with associated osteomyelitis and loosening of the T11 pedicle screws. Possible small developing epidural abscess or phlegmon -Repeat BC NGTD - Pulmonary does not rec thoracentesis; 03/11/24 No capability at [facility] currently for bone biopsy at IR. No bed available at [facility]. She remains HDS. Recommendations Continue IV vancomycin per pharm protocol which will cover MSSA in BC and Strep in urine ( Pcn, ceph allergy; anaphylaxis) Follow up BC 03/09 to ensure clearance Follow up ID of the GPC in clusters ( not yet ided 03/07) Will need JOHN chris if BC persistently positive Follow up flex sig chris in setting of CT imaging, Step bovis in ucx and multiple fractures--> r/o malignancy -Pending IR for thoracic spine bone biopsy: send for aerobic, anaerobic, fungal and Afb cultures. ALSO send for histopathology, r/o malignancy -Follow up ortho spine input vs Neurosurgery input regarding intervention given loosening of hardware on MRI and ? early epidural abscess ID will continue to follow. ID will not round or review the chart over the weekend. Call covering provider at [facility] at [phone] with questions. I will return, Thursday03/14/24e to follow. Alondra Clark MD, MPH Infectious Disease [facility], [facility] Admission and Anticipated Discharge Date Admission Date: March 07, 2024 Subjective This patient recommendation is based on a telemedicine consult request which was completed asynchronously through chart review and information provided by the primary physician. The patient was not seen or examined today. The evaluation is consultative in nature and all patient care and treatment decisions can either be accepted or rejected by the patient's primary hospital-based treating physician using their own independent medical judgment for their patient. Time Spent Reviewing Chart: 31+ minutes Afebrile Repeat BC NGTD Results & Data Vital Signs (Past 12 Hours) Vital Signs Temp Pulse Pulse Resp BP Pulse Ox O2 Del Method 03/11/24 11:54 37.0 C 101 H 18 123/82 96 Room Air 03/11/24 08:13 37.2 C 97 H 17 142/76 H 93 Room Air 03/11/24 08:00 83 03/11/24 03:46 36.9 C 85 16 107/72 94 Room Air Laboratory Results Short CBC 03/11/24 Range/Units 05:53 WBC 6.71 (4.8-10.8) K/ul Hgb 8.2 L (12.0-16.0) g/dl Hct 27.7 L (37.0-47.0) % Plt Count 867 H (130-400) K/uL BMP 03/11/24 05:53 Sodium 133 L Potassium 3.5 Chloride 98 Carbon Dioxide 27 BUN 6 Creatinine 0.29 L Glucose 92 Calcium 8.6 Diagnostic Findings Microbiology 03/09/24 07:24 Blood Aerobic Blood Culture - Preliminary No growth in Aerobic bottle after 48 hours. 03/09/24 07:24 Blood Anaerobic Blood Culture - Preliminary No growth in Anaerobic bottle after 48 hours. 03/09/24 07:36 Blood Aerobic Blood Culture - Preliminary No growth in Aerobic bottle after 48 hours. 03/09/24 07:36 Blood Anaerobic Blood Culture - Preliminary No growth in Anaerobic bottle after 48 hours. 03/07/24 00:09 Blood Aerobic Blood Culture - Preliminary Gram positive cocci clusters 03/07/24 00:09 Blood Anaerobic Blood Culture - Preliminary Staphylococcus aureus 03/07/24 00:23 Blood Aerobic Blood Culture - Preliminary No growth in Aerobic bottle after 48 hours. 03/07/24 00:23 Blood Anaerobic Blood Culture - Final 03/06/24 21:29 Urine,Straight Cath Urine Culture - Final Streptococcus gallalyticus Chest/Abdomen X-ray 03/09/24 13:40 PA CHEST RADIOGRAPH AND UPRIGHT AND SUPINE AP RADIOGRAPHS OF THE ABDOMEN CLINICAL HISTORY: Colonic distention PAIN PUMP POSITION FOR MRI COMPARISON STUDY: Chest radiograph March 08, 2024. CT of the chest, abdomen and pelvis March 06, 2024. FINDINGS: There is no pneumothorax. Pulmonary edema has progressed. Moderate bilateral pleural effusions with associated bibasilar opacities have increased. Cardiomegaly. Postoperative findings within the spine are noted. There is a right femoral internal fixation. Orientation of the left lower quadrant pain pum p is normal. The entirety of the catheter is not well visualized on this exam. No contraindication to MRI within the chest, abdomen or pelvis. There is no free air. There is no radiographic evidence for a bowel obstruction. IMPRESSION: 1. Normal orientation of the left lower quadrant pain pump. No contraindication to MRI within the chest, abdomen or pelvis. 2. Progression of pulmonary edema with moderate bilateral pleural effusions and associated bibasilar opacities. 3. No free air or evidence for a bowel obstruction. ACT 112: Negative or not required by law. Electronically signed by: Conner Anand M.D. 03/09/2024 8:47 AM Lumbar Spine MRI 03/10/24 06:51 MR lumbar spine wo/w con CLINICAL HISTORY: bacteremia unknown source, eval hardware/pump infec TECHNIQUE: 3 plane localizer images, sagittal T2, sagittal T1, sagittal STIR, axial T1, axial T2 along with postcontrast axial T1 and sagittal T1 fat- saturated sequences were obtained of the lumbar spine, before and after intravenous administration of 12 mL of MultiHance. Comparison: Comparison is made to CT lumbar spine 02/05/2024 FINDINGS: There is extensive susceptibility artifact due to posterior fixation hardware and the exam is limited by patient motion. Within these limits, there is no abnormal enhancement or edema. The spinal ligaments are intact, without evidence of disruption or abnormal signal intensity. The spinal cord is normal in signal intensity and there is no evidence of cord contusion. There is no evidence of an extradural, intradural, extramedullary or intramedullary lesion. Visualized soft tissues are normal. IMPRESSION: Limited exam without evidence of drainable fluid collection or bony edema/enhancement to suggest osteomyelitis. No definite findings of acute fracture as suggested by prior exam. ACT 112: Negative or not required by law. Electronically signed by: Dex Moon M.D. 03/10/2024 1:56 PM Thoracic Spine MRI 03/10/24 06:52 MRI OF THE THORACIC SPINE WITH AND WITHOUT CONTRAST CLINICAL HISTORY: bacteremia unknown source, eval hardware/pump infection COMPARISON: Thoracic spine CT March 06, 2024. Chest CT November 22, 2023. Thoracic spine radiographs June 26, 2018. TECHNIQUE: Utilizing a 1.5 Pamela magnet and dedicated coil, multiplanar, multiecho imaging of the thoracic spine was performed before and after the intravenous administration of 5 cc. FINDINGS: This exam is moderately compromised given difficulty positioning and artifact from the spinal hardware. There are postoperative findings consistent with T11-S1 decompression and fusion. Bilateral pleural effusions are better depicted on prior chest CT. There are associated lower lobe airspace opacities. Please note that the lumbar spine MRI will be reported separately. Lucency adjacent to the bilateral T11 pedicle screws is depicted on spine CT March 06, 2021. The tip of the right screw slightly extends into the disc space. There is increased fluid signal within the T10-T11 disc space. There is paravertebral edema and enhancement. There is increased T2 signal and diminished T1 signal within the T10 and T11 vertebral bodies with erosion of the inferior endplate of T10 and superior endplate of T11. This erosion is new since CT of November 22, 2023. There is an associated small T2 hyperintense focus within the anterior epidural space that measures 0.9 x 0.8 x 0.2 cm. This enhances. No additional epidural abnormalities are identified. Thoracic cord signal suboptimally assessed on this exam but likely normal. This results in mild central canal narrowing. There is no severe stenosis within the thoracic spine. Several old mild thoracic spine compression fractures are present. No additional sites of inflammation are identified within the thoracic spine. IMPRESSION: 1. Status post T11-S1 decompression and fusion. Exam compromised given difficulty positioning and artifact from the surgical hardware. Please note that the lumbar spine MRI will be reported separately. 2. Lucency adjacent to the T11 pedicle screws, as shown on CT. Increased fluid signal within T10-T11 disc space with abnormal marrow signal within the T10 and T11 vertebral bodies with associated endplate erosive changes which are new since CT of November 22, 2023. Associated paravertebral edema and enhancement. Given the clinical history, the findings are suspicious for T10-T11 discitis with associated osteomyelitis and loosening of the T11 pedicle screws. Less likely, these findings could be aseptic and related to loosening/developing pseudarthrosis. An infectious process is the diagnosis of exclusion. Small associated abnormality within the anterior epidural space results in mild central canal stenosis. This may reflect a small developing epidural abscess or phlegmon. No severe central canal stenosis within the thoracic spine. 3. Bilateral pleural effusions with associated lower lobe airspace opacities, better depicted on prior CT. 4. Several old mild thoracic spine compression fractures. ACT 112: Negative or not required by law. Electronically signed by: Conner Anand M.D. 03/10/2024 2:26 PM Medications Administered Home Medications Medication Instructions Recorded Confirmed Last Taken baclofen 10 mg tablet 10 mg PO DAILY PRN spasms #90 tabs 12/01/22 03/07/24 Unknown celecoxib 200 mg capsule 200 mg PO QAM #90 caps 03/20/23 03/07/24 11/05/23 clopidogrel 75 mg tablet 75 mg PO HS #90 tabs 03/20/23 03/07/24 11/05/23 atorvastatin 10 mg tablet 10 mg PO [id number] 09/28/23 03/07/24 11/04/23 duloxetine 30 mg capsule,delayed 30 mg PO DAILY #30 caps 11/12/23 03/07/24 Unknown release (Cymbalta) cholecalciferol (vitamin D3) 25 25 mcg PO DAILY 02/18/24 03/07/24 Unknown mcg (1,000 unit) capsule docusate sodium 100 mg capsule 100 mg PO BID 02/18/24 03/07/24 Unknown enoxaparin 30 mg/0.3 mL 30 mg subcut BID 02/18/24 03/07/24 Unknown subcutaneous syringe (Lovenox) lidocaine 4 % topical patch 1 patch topical DAILY 02/18/24 03/07/24 Unknown (Aspercreme (lidocaine)) ondansetron HCl 4 mg tablet 4 mg PO Q4H PRN Nausea And Vomiting 02/18/24 03/07/24 Unknown sennosides 8.6 mg tablet (Senokot) 17.2 mg PO BID 02/18/24 03/07/24 Unknown Wheelchair (Manual) #1 ea 02/25/24 02/25/24 Unknown denosumab 60 mg/mL subcutaneous 60 mg subcut UD 03/07/24 03/07/24 Unknown syringe (Prolia) morphine concentrate 100 mg/5 mL 10 mg PO Q1H PRN SOB/Pain 03/07/24 03/07/24 Unknown (20 mg/mL) oral solution sodium chloride 1 gram tablet 2,000 mg PO BID 03/07/24 03/07/24 Unknown tramadol 50 mg tablet 50 mg PO Q8H PRN Severe Pain 03/07/24 03/07/24 Unknown (Scale Score 7-10) Active Medications Generic Name Dose Route Start Last Admin Trade Name Freq PRN Reason Stop Dose Admin Acetaminophen 650 mg 03/07/24 03:09 03/10/24 03:50 Acetaminophen 325 Mg Tab PO 04/06/24 03:08 650 mg Q4H PRN Administration Pain or Fever Atorvastatin Calcium 10 mg 03/07/24 09:00 03/11/24 10:06 Atorvastatin 10 Mg Tab PO 04/06/24 08:59 10 mg [id number] FREDO Administration Baclofen 10 mg 03/07/24 03:09 03/11/24 17:34 Baclofen 10 Mg Tab PO 04/06/24 03:08 10 mg DAILY PRN Administration spasms Cyanocobalamin 100 mcg 03/08/24 09:00 03/11/24 10:06 Cyanocobalamin (B-12) 100 Mcg Tablet PO 04/07/24 08:59 100 mcg QAM FREDO Administration Docusate Sodium 100 mg 03/07/24 09:00 03/11/24 10:10 Docusate Sodium 100 Mg Cap PO 04/06/24 08:59 100 mg BID FREDO Administration Duloxetine HCl 30 mg 03/07/24 09:00 03/11/24 10:06 Duloxetine Hcl 30 Mg Cap PO 04/06/24 08:59 30 mg DAILY FREDO Administration Ferrous Sulfate 325 mg 03/09/24 09:00 03/11/24 10:06 Ferrous Sulfate 325 Mg Tab PO 04/08/24 08:59 325 mg QAM FREDO Administration Furosemide 20 mg 03/09/24 15:30 03/11/24 10:07 Furosemide Inj 20 Mg/2 Ml Vial IV 04/08/24 15:29 20 mg QAM FREDO Administration Vancomycin HCl 1,000 mg in 270 mls @ 200 mls/hr 03/08/24 12:00 03/11/24 14:01 Vancomycin Hcl IV 03/22/24 11:59 Infused Q8H FREDO Infusion Lidocaine 1 patch 03/07/24 09:00 03/11/24 10:07 Lidocaine 5% 1 Patch TD 04/06/24 08:59 1 patch QAM FREDO Administration Potassium Chloride 10 meq 03/07/24 09:00 03/11/24 10:11 Potassium Chloride 10 Meq Tabcr PO 04/06/24 08:59 10 meq DAILY FREDO Administration Sennosides 17.2 mg 03/07/24 09:00 03/11/24 10:11 Senna 8.6 Mg Tab PO 04/06/24 08:59 17.2 mg BID FREDO Administration Sodium Chloride 2 gm 03/07/24 09:00 03/11/24 10:06 Sodium Chloride 1 Gm Tablet PO 04/06/24 08:59 2 gm BID FREDO Administration Tramadol HCl 50 mg 03/09/24 21:12 03/11/24 17:34 Tramadol Hcl 50 Mg Tablet PO 04/08/24 21:11 50 mg Q6H PRN Administration Pain Vitamin D 25 mcg 03/07/24 09:00 03/11/24 10:06 Cholecalciferol 25 Mcg (1000 Units) Tab PO 04/06/24 08:59 25 mcg DAILY FREDO Administration (7) Pneumonia Laterality: unspecified laterality Lung location: unspecified part of lung Pneumonia type: due to unspecified organism Qualified Code(s): J18.9 - Pneumonia, unspecified organism
--- NOTE | 2024-03-11 16:53 | Hospitalist Progress Note ---
Date of Service March 11, 2024 Assessment & Plan (1) Bacteremia due to Staphylococcus: (2) Parapneumonic effusion: (3) Acute UTI: (4) Lateral malleolar fracture: (5) Fracture of proximal end of tibia: (6) Thrombocytosis: (7) Frequent falls: Plan The patient is a 68-year-old female with a past medical history including traumatic brain injury with delayed recovery, fractured scapula, multiple fractures of right sided ribs, frequent falls, generalized weakness, malnutrition, seizure history, hyponatremia, aphasia due to disease, executive function deficit, lumbar postlaminectomy syndrome and urinary incontinence. She is referred to the emergency department after being found between the toilet and wall facility for an unknown length of time after an unwitnessed fall. Staff became concerned because the patient had a simin on the right side of her face, and that she seemed more confused than her baseline. #MSSA Bacteremia -unknown source Continue vancomycin IV. Meropenem d/c 03/08 Blood culture: MSSA. source unknown. Repeat blood cultures 03/09: no growth 48 hours Infectious disease consulted - continue IV vancomycin. Consider thoracentesis. May need JOHN. - IR evaluation for bone bx - discussed with IR PA we do NOT have capabilitie s to do this here, consider surgery. Dr. Townsend out of town until 03/23. Attempted to transfer patient to [facility] 03/11 but denied due to their bed capacity, recommend other tertiary center or to try again this weekend. TTE: without vegetations MRI spine: changes at T10/T11 associate with hardware, concern for osteomyelitis. Possible Small developing abscess or phlegmon. Pain pump functioning properly post MRI. #Parapneumonic effusions bilaterally Chest CT 03/06: moderate volume b/l new pleural effusions w/ overlying consolidation/atelectasis & corresponding interstitial infiltrates. Pulmonary consulted for possible thoracentesis - continue diuretics, would recommend against thoracentesis. etiology HEpEF vs hypoalbuminemia Patient has been stable on room air for duration of stay, no bump in creatinine we will plan to recheck chest x-ray a.m. 1/4 AM BMP #Urinary tract infection- UC: strep gallalyticus Will be covered by vanco, but not source of bacteremia. Concerning in group with strep bovis for colon cancer. #Right proximal tibial and lateral malleolar fracture- Read as possibly acute by radiology overnight Ortho evaluated patient 03/07 - no fracture identified. Likely right knee contusion and right ankle sprain. Immobilizer from ED removed - cast padding and VICKIE wrap applied for comfort. PT/OT - recommend return to prior living arrangement, would not be possible if pt needs IV antibiotics POA reports Dr. Pereyra, [facility], had ordered a brace for her leg that was supposed to be put on at the hospital. Consider if this can be done while inpatient closer to discharge #Multiple vertebral fractures, with unclear timeframe- Patient has had significant trauma admission at [facility] in [place] in December this year. Prior back surgeries with Dr. Mesa ([facility]) Fractures at T8, L4 and L5 have been referred to but, appears to be more chronic than acute Consult orthopedic spine - recommend mobilization, no brace or surgery. Presently on a baclofen pump, Which has been recently refilled by pain management service, and reportedly is filled until appointment 03/16 #Thrombocytosis/progressive anemia- Platelets have been 298 at baseline, but on admission were 1038 Hemoglobin baseline has been 12-13, but 8.6 on admission Iron panel: transferrin sat 7%, iron 11, TIBC 160 Vitamin B12: 154, started on PO supplementation, Patient declined B12 injection. 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 No concerns myeloproliferative neoplasm. - continue to treat iron deficiency. S/p Venofer x2 - continue on PO supplementation - JAK2 mutation testing pending AM CBC #Abnormal CT finding CTAP 03/06: Possible enteritis, possible large bowel loops and question of possible malignancy with anasarca GI consulted - could perform flex sigmoidoscopy later in inpatient stay if more stable, otherwise can be done outpatient. Hgb has been stable, no signs of bleeding. #Hypokalemia- Patient takes 10meq daily replaced PO and now potassium is replete #Hypomagnesemia- Magnesium 1.6 s/p IV replacement and now replete. 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 Able to speak some, reliable answer yes or no questions. Able to understand/comprehend what you are saying. Communication Board for patient #Long-term disposition, patient has been seen by palliative care (wendy) in the outpatient setting PT/OT - recommend return to [facility] but unable to do so if on IV antibiotics Dispo: continued inpatient stay awaiting accepting facility for transfer DVT proh: chemical held with abraham Theodore updated by phone and bedside 03/08 and 03/10, 03/11. LM 03/[address] Scott, ID Admission and Anticipated Discharge Date Admission Date: March 07, 2024 Supervising Physician Co-Signing Physician Notes Attending Attestation - Chart reviewed in detail, care plan d/w PA Johanny Elmore. I agree w/ the gerard components of her documentation. Highly complex patient with numerous active issues. MSSA bacteremia -- 2nd to thoracic spine infection? (diskitis at T10-T11 suspected based on MRI thoracici spine; possible spinal hardware infection, possible epidural abscess in the thoracic spine). Unfortunately ortho-spine is not available at this time (Dr Townsend out until 03/23). [facility] IR cannot complete IR biopsy with culture. Thus, Ms Elmore reached out to [facility] - they cannot accept patient in transfer due to lack of beds. Will have to look at other tertiary care centers with ortho-spine & IR capability. Repeat blood cx's from 03/09/24 thus far negative. Appreciate ID consult and recs. Evan Jerry MD Subjective Patient seen lying in bed early this morning. I informed her that IR would not have the capabilities to complete her biopsy while she was here and she was agreeable to transfer to [facility]. At first she was hesitant as she does not know that she wants to have surgery but when I discussed if we did not treat this infection would be talking more about like a hospice/palliative care pathway, she expressed that this would not be what she wanted. Pain is well-controlled Revisited after denial for transfer. Patient is not interested in going to [facility] at this time we will try to get her transferred again this weekend. Telemetry sinus rhythm in the 80s Physical Exam Physical Exam: General: NAD, VS as above Resp: normal respiratory effort, lungs clear to auscultation CV: RRR, no murmur, Abd: normal bowel sounds, non tender, no hepatosplenomegaly. pain pump palpable Extremities: right leg in vickie wrap from knee to ankle with ankle brace in place. No LE edema. Neuro: A&O x3, Skin: intact, no lesions noted Results & Data Results & Data Vital Signs (Past 12 Hours) Vital Signs Temp Pulse Pulse Resp BP Pulse Ox O2 Del Method 03/11/24 16:25 99.3 F 95 H 18 139/75 93 Room Air 03/11/24 14:23 96 H 03/11/24 11:54 98.6 F 101 H 18 123/82 96 Room Air 03/11/24 08:13 99.0 F 97 H 17 142/76 H 93 Room Air 03/11/24 08:00 83 Laboratory Results CBC, chemistry review reviewed Blood cultures and repeat blood cultures reviewed PG Care Time/CCT Total # of Minutes Spent Total Time Spent with Patient: Total time spent is greater than 50% in coordination of care (as documented) at patient's floor/unit and/or counseling patient: Coding Level of Care Code 59445 SUB INP/OBS CARE 3/50MIN Diagnoses Bacteremia due to Staphylococcus R78.81; B95.8 Parapneumonic effusion J18.9; J91.8 Acute UTI N39.0 Lateral malleolar fracture S82.61XA Encounter type: initial encounter Fracture alignment: displaced Fracture type: closed Laterality: right Fracture of proximal end of tibia S82.101A Encounter type: initial encounter Fracture morphology: unspecified fracture morphology Fracture type: closed Laterality: right Thrombocytosis D75.839 Frequent falls R29.6 (4) Lateral malleolar fracture Encounter type: initial encounter Fracture alignment: displaced Fracture type: closed Laterality: right Qualified Code(s): S82.61XA - Displaced fracture of lateral malleolus of right fibula, initial encounter for closed fracture (5) Fracture of proximal end of tibia Encounter type: initial encounter Fracture morphology: unspecified fracture morphology Fracture type: closed Laterality: right Qualified Code(s): S82.101A - Unspecified fracture of upper end of right tibia, initial encounter for closed fracture
[2024-03-11] MEDS: BACLOFEN 10 MG TAB PO PRN (17:34)
[2024-03-12 06:30] LABS: Hematocrit (blood only) 25.4 % (37.0-47.0); Hemoglobin 7.9 g/dl (12.0-16.0); Mean Corpuscular Hemoglobin 24.3 pg (25.0-34.0); Mean Corpuscular Hgb Conc 31.1 g/dL (32.0-36.0); Mean Corpuscular Volume 78.2 fL (80.0-100.0); Mean Platelet Volume 8.5 fL (9.4-12.4); Platelet Count 783 K/uL (130-400); RDW Standard Deviation 47.7 fL (36.4-46.3); Red Blood Count 3.25 M/uL (4.20-5.40); White Blood Count 6.41 K/ul (4.8-10.8)
[2024-03-12 06:54] LABS: BUN Creatinine Ratio 15.2 (10-20); Calcium 8.3 mg/dl (8.6-10.3); Creatinine Clr Calc Pharmacy 117.2 ml/min; Potassium 3.1 mmol/L (3.5-5.1)
[2024-03-12] MEDS: POTASSIUM CHLORIDE 20 MEQ/15 ML UDC PO STA (08:35)
[2024-03-12] MEDS ORDERED: HYDROCORTISONE 2.5% CR 30 GM TUBE EXT PRN (10:09)
--- NOTE | 2024-03-12 10:17 | Hospitalist Progress Note ---
Date of Service March 12, 2024 Assessment & Plan (1) Bacteremia due to Staphylococcus: (2) Parapneumonic effusion: (3) Acute UTI: (4) Lateral malleolar fracture: (5) Fracture of proximal end of tibia: (6) Thrombocytosis: (7) Frequent falls: Plan The patient is a 68-year-old female with a past medical history including traumatic brain injury with delayed recovery, fractured scapula, multiple fractures of right sided ribs, frequent falls, generalized weakness, malnutrition, seizure history, hyponatremia, aphasia due to disease, executive function deficit, lumbar postlaminectomy syndrome and urinary incontinence. She is referred to the emergency department after being found between the toilet and wall facility for an unknown length of time after an unwitnessed fall. Staff became concerned because the patient had a simin on the right side of her face, and that she seemed more confused than her baseline. #MSSA Bacteremia -unknown source Continue vancomycin IV. Meropenem d/c 03/08 Blood culture: MSSA. source unknown. Repeat blood cultures 03/09: no growth 48 hours Infectious disease consulted - continue IV vancomycin. Consider thoracentesis. May need JOHN. - IR evaluation for bone bx - discussed with IR PA we do NOT have capabilitie s to do this here, consider surgery. Dr. Townsend out of town until 03/23. Attempted to transfer patient to [facility] 03/11 but denied due to their bed capacity, recommend other tertiary center or to try again this weekend (tomorrow d/t weather) TTE: without vegetations MRI spine: changes at T10/T11 associate with hardware, concern for osteomyelitis. Possible Small developing abscess or phlegmon. Pain pump functioning properly post MRI. #Parapneumonic effusions bilaterally Chest CT 03/06: moderate volume b/l new pleural effusions w/ overlying consolidation/atelectasis & corresponding interstitial infiltrates. Pulmonary consulted for possible thoracentesis - continue diuretics, would recommend against thoracentesis. etiology HEpEF vs hypoalbuminemia Patient has been stable on room air for duration of stay - recheck CXR this AM shows stable effusion, but pt continues to be net negative, will continue diuresis AM BMP #Urinary tract infection- UC: strep gallalyticus Will be covered by vanco, but not source of bacteremia. Concerning in group with strep bovis for colon cancer. #Right proximal tibial and lateral malleolar fracture- Read as possibly acute by radiology overnight Ortho evaluated patient 03/07 - no fracture identified. Likely right knee contusion and right ankle sprain. Immobilizer from ED removed - cast padding and VICKIE wrap applied for comfort. PT/OT - recommend return to prior living arrangement, would not be possible if pt needs IV antibiotics POA reports Dr. Pereyra, [facility], had ordered a brace for her leg that was supposed to be put on at the hospital. Consider if this can be done while inpatient closer to discharge #Multiple vertebral fractures, with unclear timeframe- Patient has had significant trauma admission at [facility] in [place] in December this year. Prior back surgeries with Dr. Mesa ([facility]) Fractures at T8, L4 and L5 have been referred to but, appears to be more chronic than acute Consult orthopedic spine - recommend mobilization, no brace or surgery. Presently on a baclofen pump, Which has been recently refilled by pain management service, and reportedly is filled until appointment 03/16 #Thrombocytosis/progressive anemia- Platelets have been 298 at baseline, but on admission were 1038 - starting to down trend (783 today) Hemoglobin baseline has been 12-13, but 8.6 on admission - stable at 7.9 Iron panel: transferrin sat 7%, iron 11, TIBC 160 Vitamin B12: 154, started on PO supplementation, Patient declined B12 injection. 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 No concerns myeloproliferative neoplasm. - continue to treat iron deficiency. S/p Venofer x2 - continue on PO supplementation - JAK2 mutation testing pending AM CBC #Abnormal CT finding CTAP 03/06: Possible enteritis, possible large bowel loops and question of possible malignancy with anasarca GI consulted - could perform flex sigmoidoscopy later in inpatient stay if more stable, otherwise can be done outpatient. Hgb has been stable, no signs of bleeding. #Hypokalemia- Patient takes 10meq daily replaced PO again today #Hypomagnesemia- Magnesium 1.6 s/p IV replacement and now replete. 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 Able to speak some, reliable answer yes or no questions. Able to understand/comprehend what you are saying. Communication Board for patient #Long-term disposition, patient has been seen by palliative care (wendy) in the outpatient setting PT/OT - recommend return to [facility] but unable to do so if on IV antibiotics Dispo: continued inpatient stay awaiting accepting facility for transfer, stable for downgrade to medical DVT proh: anemia stable, will begin lovedianex Arben updated by phone and bedside 03/08 and 03/10, 03/11. Admission and Anticipated Discharge Date Admission Date: March 07, 2024 Supervising Physician Co-Signing Physician Notes Attending Attestation - Chart reviewed in detail, care plan d/w PA Johanny Elmore. I agree w/ the gerard components of her documentation. Highly complex patient with numerous active issues. MSSA bacteremia -- 2nd to thoracic spine infection? (diskitis at T10-T11 suspected based on MRI thoracici spine; possible spinal hardware infection, possible epidural abscess in the thoracic spine). Unfortunately ortho-spine is not available at this time (Dr Townsend out until 03/23). [facility] IR cannot complete IR biopsy with culture. Ms Elmore reached out to [facility] on 03/11/24 - they cannot accept patient in transfer due to lack of beds. Will have to look at other tertiary care centers with ortho-spine & IR capability depending on pt's wishes. Repeat blood cx's from 03/09/24 remain negative. Appreciate ID consult and recs. Cont IV vancomycin for MSSA. ?Rectal mass - will need definitive endoscopic eval with bx at some point; deferred by GI for now. Strep gallalyticus UTI - this particular pathogen has high association with GI tract malignancy. Evan Jerry MD Subjective patient seen lying in bed, appears umcomfortable, reporting back pain also reporting itching over irritation on chest aware plan for re-trial transfer [facility] Tele: SR 60-80s Review of Systems Review of Systems: All systems reviewed & are unremarkable except as noted in Subjective Physical Exam Physical Exam: General: NAD, VS as above, lying in bed, appears uncomfortable Resp: normal respiratory effort, lungs clear to auscultation CV: RRR, no murmur. Redness over chest in area of prior tele leads, looks to be worsened from scratching Abd: normal bowel sounds, non tender, no hepatosplenomegaly. pain pump palpable Extremities: right leg in vickie wrap from knee to ankle with ankle brace in place. No LE edema. Neuro: A&O x3, Skin: intact, no lesions noted Results & Data Results & Data Vital Signs (Past 12 Hours) Vital Signs Temp Pulse Pulse Resp BP Pulse Ox O2 Del Method 03/12/24 07:40 98.4 F 89 15 107/61 92 Room Air 03/12/24 07:25 85 03/12/24 03:23 98.4 F 83 15 107/61 94 Room Air 03/11/24 23:02 98.6 F 84 15 114/70 93 Room Air 03/11/24 22:30 87 Laboratory Results cbc and chemsitry reviewed repeat blood cultures reviewed PG Care Time/CCT Total # of Minutes Spent Total Time Spent with Patient: Total time spent is greater than 50% in coordination of care (as documented) at patient's floor/unit and/or counseling patient: Coding Level of Care Code 44675 SUB INP/OBS CARE 2MIN Diagnoses Bacteremia due to Staphylococcus R78.81; B95.8 Parapneumonic effusion J18.9; J91.8 Acute UTI N39.0 Lateral malleolar fracture S82.61XA Encounter type: initial encounter Fracture alignment: displaced Fracture type: closed Laterality: right Fracture of proximal end of tibia S82.101A Encounter type: initial encounter Fracture morphology: unspecified fracture morphology Fracture type: closed Laterality: right Thrombocytosis D75.839 Frequent falls R29.6 (4) Lateral malleolar fracture Encounter type: initial encounter Fracture alignment: displaced Fracture type: closed Laterality: right Qualified Code(s): S82.61XA - Displaced fracture of lateral malleolus of right fibula, initial encounter for closed fracture (5) Fracture of proximal end of tibia Encounter type: initial encounter Fracture morphology: unspecified fracture morphology Fracture type: closed Laterality: right Qualified Code(s): S82.101A - Unspecified fracture of upper end of right tibia, initial encounter for closed fracture
[2024-03-12] MEDS: MoRPHine SULFATE 2 MG/ML CARP IV PRN (10:55)
--- NOTE | 2024-03-12 11:37 | XRay Report ---
XR chest 2V PA/lateral CLINICAL HISTORY: recheck effusions COMPARISON STUDY: Chest CT March 06, 2024. Chest radiograph March 09, 2024. FINDINGS: Postoperative findings within the spine are partially imaged. Old post traumatic findings w ithin the right hemithorax are incidentally noted. There is no pneumothorax. [id number] bilate ral pleural effusions are unchanged. There is persistent pulmonary edema with bibasilar opacities. Ca rdiomediastinal silhouette is stable. IMPRESSION: 1. No change in small to moderate bilateral pleural effusions with associated bibasilar opacities. 2. Persistent pulmonary edema. ACT 112: Negative or not required by law. Electronically signed by: Conner Anand M.D. 03/12/2024 11:36 AM
[2024-03-13 07:27] LABS: Hematocrit (blood only) 27.3 % (37.0-47.0); Hemoglobin 8.1 g/dl (12.0-16.0); Mean Corpuscular Hemoglobin 23.9 pg (25.0-34.0); Mean Corpuscular Hgb Conc 29.7 g/dL (32.0-36.0); Mean Corpuscular Volume 80.5 fL (80.0-100.0); Mean Platelet Volume 8.8 fL (9.4-12.4); Platelet Count 791 K/uL (130-400); RDW Coefficient of Variation 17.4 % (11.5-14.5); RDW Standard Deviation 49.9 fL (36.4-46.3); Red Blood Count 3.39 M/uL (4.20-5.40); White Blood Count 7.82 K/ul (4.8-10.8)
[2024-03-13 07:42] LABS: BUN Creatinine Ratio 15.4 (10-20); Calcium 8.7 mg/dl (8.6-10.3); Creatinine Clr Calc Pharmacy 99.2 ml/min; Magnesium 1.7 mg/dl (1.7-2.4); Potassium 3.7 mmol/L (3.5-5.1)
[2024-03-13] MEDS: ENOXAPARIN INJ 40 MG/0.4 ML SYR SQ SCH (09:18)
--- NOTE | 2024-03-13 12:25 | Pharmacy Report ---
Pharmacy PK ABX Note - Date of Service March 13, 2024 - Assessment and Plan Assessment 03/13: * Continues on vancomycin (Day # 7) per ID. SCr trending up - 0.29-->0.33-->0.39 today. * Stat vancomycin trough level obtained this afternoon. 03/11: * Continues on vancomycin per ID recommendation, repeat cultures negative at 48 hours * vancomycin level 18.9- continue current dose 03/09: * ID now consulted with recommendations to continue vancomycin. Repeat blood cxs pending. * Vancomycin level today 14.9- will continue current dose. 03/08: * Day #2 of Vancomycin and Meropenem. * Remains afebrile and without leukocytosis. Renal fxn stable. * 1 of 2 sets from blood cultures is growing Staph aureus which is mecA/C and MREJ negative per BCID2 panel which means this is MSSA. Urine culture positive for Streptococcus gallalyticus. * Vanc level was 10.5 mcg/mL this morning. This translates to an AUC/TAMY at steady state of 408 and only has 55% chance of maintaining an AUC/TAMY > 400. Therefore, opting to increase dose starting at noon today. * Recommendations: will recommend to primary team that meropenem be discontinued at this time as vancomycin will cover bacteremia and UTI (although, organism is urine may represent contamination rather than true infection). Should a pulmonary source be ruled out, transitioning to daptomycin will provide more predictable/achievable PK/PD parameters. Lastly, given MSSA bacteremia of unknown source in a patient with an intrathecal pain pump, would recommend an infectious disease consult. 03/07: 68 year old F receiving Vancomycin and Meropenem for treatment of HAP/UTI. * Day #1 of antimicrobial therapy. * PMHx significant for hemiplegia secondary to CVA, intrathecal pain pump containing baclofen/clonidine, anaphylactic allergy to cephalexin and resides at [facility]. * Labs/Vitals: Afebrile and without leukocytosis. Lactate normal. SCr at baseline. * Micro: Urine and Blood cultures pending. MRSA nasal swab negative. * Imaging: Bilateral parapneumonic effusions, right greater than left, per radiology. * Recommendations: Given MRSA nasal swab is negative could consider discontinuation of vancomycin at this time. Will reach out to provider. However, would not be opposed to continuing for 24 hours given possible UTI as well. Given beta-lactam allergy, meropenem is appropriate at this time. Could consider change to levofloxacin which has an oral option available when discharge is ready. Plan Vancomycin * Current regimen: 1000 mg IV every 8 hours * Trough level today @ 1120 (~ 7h level), 22.5mcg/mL -supratherapeutic - predicted to achieve ssAUC 706mg/L.hr. * Vancomycin 1gm IV q8h discontinued. Will modify regimen to 1gm IV q12h starting later this evening once level drops into therapeutic range. * Repeat level 03/15. Pharmacy will continue to follow and will adjust dose/frequency as necessary. Thank you. Pharmacy has transitioned to AUC monitoring for vancomycin. AUC/TAMY is the preferred PK/PD target and is associated with decreased risk of nephrotoxicity compared to traditional trough targets.
[2024-03-13] MEDS: VANCOMYCIN LEVEL ONE (13:56)
--- NOTE | 2024-03-13 14:58 | Hospitalist Progress Note ---
Date of Service March 13, 2024 Assessment & Plan (1) Bacteremia due to Staphylococcus: (2) Parapneumonic effusion: (3) Acute UTI: (4) Lateral malleolar fracture: (5) Fracture of proximal end of tibia: (6) Thrombocytosis: (7) Frequent falls: Plan The patient is a 68-year-old female with a past medical history including traumatic brain injury with delayed recovery, fractured scapula, multiple fractures of right sided ribs, frequent falls, generalized weakness, malnutrition, seizure history, hyponatremia, aphasia due to disease, executive function deficit, lumbar postlaminectomy syndrome and urinary incontinence. She is referred to the emergency department after being found between the toilet and wall facility for an unknown length of time after an unwitnessed fall. Staff became concerned because the patient had a simin on the right side of her face, and that she seemed more confused than her baseline. #MSSA Bacteremia -unknown source Continue vancomycin IV. Meropenem d/c 03/08 Blood culture: MSSA. source unknown - suspecting back Repeat blood cultures 03/09: no growth 48 hours TTE: without vegetations MRI spine: changes at T10/T11 associate with hardware, concern for osteomyelitis. Possible Small developing abscess or phlegmon. Pain pump functioning properly post MRI. Infectious disease consulted - continue IV vancomycin. Consider thoracentesis. May need JOHN. - IR evaluation for bone bx - discussed with IR PA we do NOT have capabilities to do this here, consider surgery. Dr. Townsend out of town until 03/23. Attempted to transfer patient to [facility] 03/11 but denied due to their bed capacity, recommend other tertiary center or to try again this weekend. Attempted again 03/13 and no bed availability. Discussed with POA trial transfer to [place] and would prefer to wait for [facility]. #Parapneumonic effusions bilaterally Chest CT 03/06: moderate volume b/l new pleural effusions w/ overlying consolidation/atelectasis & corresponding interstitial infiltrates. Pulmonary consulted for possible thoracentesis - continue diuretics, would recommend against thoracentesis. etiology HEpEF vs hypoalbuminemia Patient has been stable on room air for duration of stay - recheck CXR this AM shows stable effusion, but pt continues to be net negative, will continue diuresis AM BMP #Urinary tract infection- UC: strep gallalyticus Will be covered by vanco, but not source of bacteremia. Concerning in group with strep bovis for colon cancer. #Right proximal tibial and lateral malleolar fracture- Read as possibly acute by radiology overnight Ortho evaluated patient 03/07 - no fracture identified. Likely right knee contusion and right ankle sprain. Immobilizer from ED removed - cast padding and VICKIE wrap applied for comfort. PT/OT - recommend return to prior living arrangement, would not be possible if pt needs IV antibiotics #Multiple vertebral fractures, with unclear timeframe- Patient has had significant trauma admission at [facility] in [place] in December this year. Prior back surgeries with Dr. Mesa ([facility]) Fractures at T8, L4 and L5 have been referred to but, appears to be more chronic than acute Consult orthopedic spine - recommend mobilization, no brace or surgery. Presently on a baclofen pump, Which has been recently refilled by pain management service, and reportedly is filled until appointment 03/16 #Thrombocytosis/progressive anemia- Platelets have been 298 at baseline, but on admission were 1038 - starting to down trend (791 today) Hemoglobin baseline has been 12-13, but 8.6 on admission - stable at 8.1 Iron panel: transferrin sat 7%, iron 11, TIBC 160 Vitamin B12: 154, started on PO supplementation, Patient declined B12 injection. 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 No concerns myeloproliferative neoplasm. - continue to treat iron deficiency. S/p Venofer x2 - continue on PO supplementation - JAK2 mutation testing pending AM CBC #Abnormal CT finding CTAP 03/06: Possible enteritis, possible large bowel loops and question of possible malignancy with anasarca GI consulted - could perform flex sigmoidoscopy later in inpatient stay if more stable, otherwise can be done outpatient. Hgb has been stable, no signs of bleeding. #Hypokalemia- Patient takes 10meq daily replaced PO and now eplete #Hypomagnesemia- Magnesium 1.6 s/p IV replacement and now replete. 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 Able to speak some, reliable answer yes or no questions. Able to understand/comprehend what you are saying. Communication Board for patient #Long-term disposition, patient has been seen by palliative care (wendy) in the outpatient setting PT/OT - recommend return to [facility] but unable to do so if on IV antibiotics Dispo: continued inpatient stay awaiting accepting facility for transfer DVT proh: anemia stable, will begin lovenox Arben updated by phone 03/08 and 03/10, 03/11, 03/13. Admission and Anticipated Discharge Date Admission Date: March 07, 2024 Supervising Physician Co-Signing Physician Notes Attending Attestation - Chart reviewed in detail, care plan d/w PA Johanny Ramírez. I agree w/ the gerard components of her documentation. MSSA bacteremia -- remains on IV vancomycin. 2nd to thoracic spine infection? (diskitis at T10-T11 suspected based on MRI thoracici spine; possible spinal hardware infection, possible epidural abscess in the thoracic spine). Needs biopsy/culture of the thoracic spine. Unfortunately ortho-spine is not available at this time (Dr Townsend out until 03/23). Additionally, [facility] cannot complete IR biopsy with culture. Ms Elmore reached out to [facility] on 03/11/24 and again today - still cannot accept patient in transfer due to lack of beds. Will likely have to look at other tertiary care centers with ortho-spine & IR capability. Repeat blood cx's from 03/09/24 remain negative. Appreciate ID consult and recs. ?Rectal mass - will need definitive endoscopic eval with bx at some point; deferred by GI for now. Strep gallalyticus UTI - this particular pathogen has high association with GI tract malignancy. Despite the above vitals & labs remain stable. Evan Jerry MD Subjective Patient seen lying in bed. Back pain is better today, had a bad day yesterday. discussed that she was denied transfer again today. I asked her if she wanted me to try [facility] and she said yes and then when i asked or i can try again for [facility] tomorrow and she said yes. When trying to explain i could not pursue both options at the same time she became frustrated. Relived when offered to speak to Robin Call and spoke with Robin - he would prefer to try again with [facility] tomorrow, stating Denise has a very good relationship with her back surgeon and would prefer that she is under his care. I did discuss with him that if we cant at least get her on a list tomorrow then we may have to at least try other places. Review of Systems Review of Systems: All systems reviewed & are unremarkable except as noted in Subjective Physical Exam Physical Exam: General: NAD, VS as above, lying in bed, appears uncomfortable Resp: normal respiratory effort, lungs clear to auscultation CV: RRR, no murmur. Redness over chest in area of prior tele leads greatly improved Abd: normal bowel sounds, non tender, no hepatosplenomegaly. pain pump palpable Extremities: right leg in vickie wrap from knee to ankle with ankle brace in place. No LE edema. Neuro: A&O x3, Skin: intact, no lesions noted Results & Data Results & Data Vital Signs (Past 12 Hours) Vital Signs Temp Pulse Resp BP Pulse Ox O2 Del Method 03/13/24 11:33 98.6 F 96 H 14 116/69 95 Room Air 03/13/24 08:00 Room Air 03/13/24 07:26 99.1 F 89 16 128/70 94 Room Air Laboratory Results cbc and chemistry reviewed PG Care Time/CCT Total # of Minutes Spent Total Time Spent with Patient: Total time spent is greater than 50% in coordination of care (as documented) at patient's floor/unit and/or counseling patient: Coding Level of Care Code 61048 SUB INP/OBS CARE 3/50MIN Diagnoses Bacteremia due to Staphylococcus R78.81; B95.8 Parapneumonic effusion J18.9; J91.8 Acute UTI N39.0 Lateral malleolar fracture S82.61XA Encounter type: initial encounter Fracture alignment: displaced Fracture type: closed Laterality: right Fracture of proximal end of tibia S82.101A Encounter type: initial encounter Fracture morphology: unspecified fracture morphology Fracture type: closed Laterality: right Thrombocytosis D75.839 Frequent falls R29.6 (4) Lateral malleolar fracture Encounter type: initial encounter Fracture alignment: displaced Fracture type: closed Laterality: right Qualified Code(s): S82.61XA - Displaced fracture of lateral malleolus of right fibula, initial encounter for closed fracture (5) Fracture of proximal end of tibia Encounter type: initial encounter Fracture morphology: unspecified fracture morphology Fracture type: closed Laterality: right Qualified Code(s): S82.101A - Unspecified fracture of upper end of right tibia, initial encounter for closed fracture
[2024-03-13] MEDS: VANCOMYCIN HCL 1,000 MG/270 ML BAG IV SCH (18:11)
[2024-03-14 09:36] LABS: Hematocrit (blood only) 30.5 % (37.0-47.0); Hemoglobin 9.1 g/dl (12.0-16.0); Mean Corpuscular Hemoglobin 23.9 pg (25.0-34.0); Mean Corpuscular Hgb Conc 29.8 g/dL (32.0-36.0); Mean Corpuscular Volume 80.1 fL (80.0-100.0); Mean Platelet Volume 9.9 fL (9.4-12.4); Platelet Count 779 K/uL (130-400); RDW Coefficient of Variation 17.7 % (11.5-14.5); RDW Standard Deviation 50.7 fL (36.4-46.3); Red Blood Count 3.81 M/uL (4.20-5.40); White Blood Count 9.39 K/ul (4.8-10.8)
[2024-03-14 09:58] LABS: BUN Creatinine Ratio 11.1 (10-20); Calcium 9.1 mg/dl (8.6-10.3); Creatinine Clr Calc Pharmacy 85.9 ml/min; Potassium 3.1 mmol/L (3.5-5.1)
[2024-03-14] MEDS: POTASSIUM CHLORIDE CRTAB 20 MEQ TABCR PO STA (13:40)
--- NOTE | 2024-03-14 14:34 | Infectious Disease Progress Nt ---
Date of Service March 14, 2024 Assessment & Plan (1) Fracture, thoracic vertebra, compression: (2) Abnormality of rectum: (3) Right ankle sprain: (4) Closed fracture of nasal bone: (5) Lateral malleolar fracture: (6) Thrombocytosis: (7) Pneumonia: (8) Bacteremia due to Staphylococcus: Plan This is a 68-year-old female with a past medical history of traumatic brain injury, fractured scapula, multiple fractures of the right rib, frequent falls, seizures, aphasia, executive function deficit, lumbar post laminectomy syndrome, urinary incontinence, CVA with residual R hemiparesis who presents from a detention facility after she was found on the ground between the toilet and the wall of the facility for an unknown period of time. Patient was more confused from her baseline. Patient has expressive aphasia and cannot provide a history. History obtained from chart review. Apparently she was found to have redness and swelling of the right side of her face and right lower extremity. Patient does not remember falling. She is unable to tell me why she presented to the hospital. She tells me that she has back pain and R leg pain .. In the ED, temperature 37.3, pulse 109, RR 18, BP 120/86, O2 sats 94% on room air. Labs: WBC 9.53, hemoglobin 8.6, hematocrit 28.1, platelets 1038, sodium 129, BUN 6, creatinine 0.36, AST 10, ALT 5. Urinalysis> 50 WBC. Negative MRSA screen. COVID testing negative. Blood cultures with MSSA in 2/4 bottles. Urine culture with a streptococcus gallolyticus Ct scan of the lumbar spine shows postsurgical thoraco lumbar spine with possible L4 and L5 vertebral fractures and subtle fracture of the left sacral ala. CT scan of the thoracic spine shows a T8 vertebral endplate wedge compression/fracture of unknown age. There is no significant abnormalities of the cervical spine. R Tib-fib x-ray shows a mildly displaced intra-articular fracture of the lateral corner of the right proximal tibia. Subtle nondisplaced cortical fracture laterally of the lateral malleolus. R Ankle x-ray shows no evidence of acute fracture , however overlying cast is limiting bony details. R Knee x-ray with no evidence of acute fracture. Visible distal femur diaphysis shows instrumentation from earlier surgery without periprosthetic lucencies seen to suggest loosening or infection. CT chest shows moderate volume bilateral pleural effusions with overlying consolidations and corresponding interstitial infiltrates right greater than left. Nondisplaced old fracture of the right third rib. A T8 vertebral chronic compression fracture. CT of the face shows a right nasal bone fracture. Head CT with no evidence of acute abnormality. CT abdomen pelvis shows a moderately large sized hiatal hernia. Possible mucosal thickening of fluid/gas filled normal caliber small bowel loops/enteritis. Gas/stool-filled mild distended large bowel loops. Irregular lobulations/abdominal wall thickening of a moderately distended rectum suspicious for malignancy. She has been evaluated by orthopedics, spine surgery, heme-onc, and GI . Her RLE was dressed and casted. No surgical intervention planned to LE or spine. She may undergo a flex sig later in the week. She is receiving IV vancomycin. She has a history of PCN and cephalexin allergy. ID consulted for MSSA bacteremia. Microbiology: Urine culture 03/06 > 100 K Streptococcus gallolyticus Blood culture 03/07 03/12 bottles positive for MSSA and / GPC in clusters not yet ided Blood culture 03/09 NGTD Antibiotics Meropenem 03/06 - 03/08 Levaquin 03/06 Vancomycin 03/07ongoing #MSSA bacteremia #Streptococcus gallolyticus ?UTI # Multiple fractures acute and chronic -lateral malleolus ,tibial, l4, l5 fracture, ? sacral ala fracture, T8 compression wedge fracture ,R Nasal fracture #B/L pleural effusion with associated opacities #Irregular lobulations/wall thickening of distended rectum: r/o malignancy - Strep gallolyticus ( bovis)in urine - assed with colon malignancy when in blood culture #Possible T10-T11 discitis with assed osteomyelitis and loosening of T 11 pedicle screw ( infectious vs non infectious) with ? epidural abscess of phlegmon #Spinal hardware in place # Baclofen pump #R femur hardware/instrumentation # Thrombocytosis # Cephalexin allergy : anaphylaxis # PCN Allergy : nausea Per chart - pt states her lips swell however Discussion: The source of the MSSA bacteremia is unknown, could be 2/2 spinal infection. She has multiple prosthetics/instrumentation: Spinal hardware, right femur hardware, baclofen pump. Exam significant for tenderness to palpation of BL flank and lower spine. She complains of back pain and right lower extremity pain. Pain may be secondary to chronic versus new fractures or developing infection. Right lower extremity is in a cast and I am unable to fully evaluate. Although she fell, there is no khadar cellulitis on the skin or open wounds that are apparent. She has BL pleural effusions with opacities, so Pneumonia is possible. Additionally, a rectal abnormality is seen on imagin g--> malignancy needs to be ruled out especially in the setting of multiple fractures. I would not expect MSSA in the GI tract so it is less likely to be the source for her bacteremia. Urine culture growing Streptococcus Gallolyticus. Unclear if symptomatic given her expressive aphasia. It is noted that STREP gallolyticus ( strep bovis ) especially if in blood culture is associated with Colon malignancy. No strep gallolyticus growth in BCx to date. TTE shows no significant valvular pathology. No valvular vegetation. 03/10/24 -MRI lumbar and thoracic spine reviewed lucency noted adjacent to the T11 pedicle screws, Increased fluid signal within T10-T11 disc space with abnormal marrow signal within the T10 and T11 vertebral bodies with associated endplate erosive changes which are new since CT of November 22, 2023. C/f T10-T11 discitis with associated osteomyelitis and loosening of the T11 pedicle screws. Possible small developing epidural abscess or phlegmon -Repeat BC NGTD - Pulmonary does not rec thoracentesis; 03/11/24 No capability at [facility] currently for bone biopsy at . No bed available at [facility]. She remains HDS. 03/14/24 pending transfer for biopsy, awaiting ortho spine followup on MRI findings Recommendations Continue IV vancomycin per pharm protocol which will cover MSSA in BC and Strep in urine ( Pcn, ceph allergy; anaphylaxis)--> if no lung involvement ( less likely )--> will likely change to Daptomycin Follow up BC 03/09 to ensure clearance Will need JOHN chris if BC persistently positive Follow up flex sig chris in setting of CT imaging, Step bovis in ucx and multiple fractures--> r/o malignancy -Pending IR for thoracic spine bone biopsy: send for aerobic, anaerobic, fungal and Afb cultures. ALSO send for histopathology, r/o malignancy -Follow up ortho spine input vs Neurosurgery input regarding intervention given loosening of hardware on MRI and ? early epidural abscess ID will continue to follow. Anticipate 6 weeks of IV abx from IR followed by suppression in setting of retained hardware Alondra Clark MD, MPH Infectious Disease [facility], ID Division Call [phone] with questions. Admission and Anticipated Discharge Date Admission Date: March 07, 2024 Subjective Subsequent visit was provided via telemedicine using two-way real-time interactive telecommunication between the patient and the telemedicine provider. For the duration of the visit, the provider was performing the assessment from a different facility than the patient. This includesuse of bluetooth stethoscope forauscultationperformed by the telepresenter that the telemedicine provider can hear if described in the physical exam. Weather Strip Mechanic contact information: Please call [facility] Call Center . (Phone Number For Physician Use Only) After establishing a telemedicine visit, patient was: Patient was verified with two unique identifiers Time Spent with Patient: Subsequent => 35 min Afebrile Repeat BC NGTD She complains of back pain Physical Exam Physical Exam: Gen- NAD, expressive aphasia HEENT- ATNC, anicteric sclera Neck- supple MSK- BL lumbar tenderness Ext-No LE edema, R LE dressed and in a boot - barlow in place, no suprapubic tenderness Skin - no open wounds on exposed skin Neuro- expressive aphasia, R sided weakness Psych- cooperative Results & Data Vital Signs (Past 12 Hours) Vital Signs Temp Pulse Resp BP Pulse Ox O2 Del Method 03/14/24 08:37 36.7 C 82 18 138/80 95 Room Air 03/14/24 07:35 Room Air Laboratory Results Laboratory Results - last 48 hr 03/13/24 03/13/24 03/14/24 06:55 11:20 08:47 WBC 7.82 9.39 RBC 3.39 L 3.81 L Hgb 8.1 L 9.1 L Hct 27.3 L 30.5 L MCV 80.5 80.1 MCH 23.9 L 23.9 L MCHC 29.7 L 29.8 L RDW Std Deviation 49.9 H 50.7 H RDW Coeff of Tera 17.4 H 17.7 H Plt Count 791 H 779 H MPV 8.8 L 9.9 Sodium 134 L 137 Potassium 3.7 3.1 L Chloride 99 98 Carbon Dioxide 30 30 Anion Gap 5 9 BUN 6 5 L Creatinine 0.39 L 0.45 L Est Cr Clr Drug Dosing 99.2 85.9 eGFR 108.40 104.72 BUN/Creatinine Ratio 15.4 11.1 Glucose 93 117 H Calcium 8.7 9.1 Magnesium 1.7 Random Vancomycin 22.5 H Diagnostic Findings Microbiology 03/09/24 07:24 Blood Aerobic Blood Culture - Final No growth in Aerobic bottle after 5 days. 03/09/24 07:24 Blood Anaerobic Blood Culture - Final No growth in Anaerobic bottle after 5 days. 03/09/24 07:36 Blood Aerobic Blood Culture - Final No growth in Aerobic bottle after 5 days. 03/09/24 07:36 Blood Anaerobic Blood Culture - Final No growth in Anaerobic bottle after 5 days. 03/07/24 00:09 Blood Aerobic Blood Culture - Final Staphylococcus aureus 03/07/24 00:09 Blood Anaerobic Blood Culture - Final Staphylococcus aureus 03/07/24 00:23 Blood Aerobic Blood Culture - Final No growth in Aerobic bottle after 5 days. 03/07/24 00:23 Blood Anaerobic Blood Culture - Final 03/06/24 21:29 Urine,Straight Cath Urine Culture - Final Streptococcus gallalyticus Chest X-Ray 03/12/24 08:00 XR chest 2V PA/lateral CLINICAL HISTORY: recheck effusions COMPARISON STUDY: Chest CT March 06, 2024. Chest radiograph March 09, 2024. FINDINGS: Postoperative findings within the spine are partially imaged. Old post traumatic findings within the right hemithorax are incidentally noted. There is no pneumothorax. [id number] bilateral pleural effusions are unchanged. There is persistent pulmonary edema with bibasilar opacities. Cardiomediastinal silhouette is stable. IMPRESSION: 1. No change in small to moderate bilateral pleural effusions with associated bibasilar opacities. 2. Persistent pulmonary edema. ACT 112: Negative or not required by law. Electronically signed by: Conner Anand M.D. 03/12/2024 11:36 AM Medications Administered Home Medications Medication Instructions Recorded Confirmed Last Taken baclofen 10 mg tablet 10 mg PO DAILY PRN spasms #90 tabs 12/01/22 03/07/24 Unknown celecoxib 200 mg capsule 200 mg PO QAM #90 caps 03/20/23 03/07/24 11/05/23 clopidogrel 75 mg tablet 75 mg PO HS #90 tabs 03/20/23 03/07/24 11/05/23 atorvastatin 10 mg tablet 10 mg PO [id number] 09/28/23 03/07/24 11/04/23 duloxetine 30 mg capsule,delayed 30 mg PO DAILY #30 caps 11/12/23 03/07/24 Unknown release (Cymbalta) cholecalciferol (vitamin D3) 25 25 mcg PO DAILY 02/18/24 03/07/24 Unknown mcg (1,000 unit) capsule docusate sodium 100 mg capsule 100 mg PO BID 02/18/24 03/07/24 Unknown enoxaparin 30 mg/0.3 mL 30 mg subcut BID 02/18/24 03/07/24 Unknown subcutaneous syringe (Lovenox) lidocaine 4 % topical patch 1 patch topical DAILY 02/18/24 03/07/24 Unknown (Aspercreme (lidocaine)) ondansetron HCl 4 mg tablet 4 mg PO Q4H PRN Nausea And Vomiting 02/18/24 03/07/24 Unknown sennosides 8.6 mg tablet (Senokot) 17.2 mg PO BID 02/18/24 03/07/24 Unknown Wheelchair (Manual) #1 ea 02/25/24 02/25/24 Unknown denosumab 60 mg/mL subcutaneous 60 mg subcut UD 03/07/24 03/07/24 Unknown syringe (Prolia) morphine concentrate 100 mg/5 mL 10 mg PO Q1H PRN SOB/Pain 03/07/24 03/07/24 Unknown (20 mg/mL) oral solution sodium chloride 1 gram tablet 2,000 mg PO BID 03/07/24 03/07/24 Unknown tramadol 50 mg tablet 50 mg PO Q8H PRN Severe Pain 03/07/24 03/07/24 Unknown (Scale Score 7-10) Active Medications Generic Name Dose Route Start Last Admin Trade Name Freq PRN Reason Stop Dose Admin Acetaminophen 650 mg 03/07/24 03:09 03/10/24 03:50 Acetaminophen 325 Mg Tab PO 04/06/24 03:08 650 mg Q4H PRN Administration Pain or Fever Atorvastatin Calcium 10 mg 03/07/24 09:00 03/14/24 07:37 Atorvastatin 10 Mg Tab PO 04/06/24 08:59 10 mg [id number] FREDO Administration Baclofen 10 mg 03/07/24 03:09 03/12/24 10:14 Baclofen 10 Mg Tab PO 04/06/24 03:08 10 mg DAILY PRN Administration spasms Cyanocobalamin 100 mcg 03/08/24 09:00 03/14/24 07:38 Cyanocobalamin (B-12) 100 Mcg Tablet PO 04/07/24 08:59 100 mcg QAM FREDO Administration Docusate Sodium 100 mg 03/07/24 09:00 03/14/24 07:42 Docusate Sodium 100 Mg Cap PO 04/06/24 08:59 100 mg BID FREDO Administration Duloxetine HCl 30 mg 03/07/24 09:00 03/14/24 07:38 Duloxetine Hcl 30 Mg Cap PO 04/06/24 08:59 30 mg DAILY FREDO Administration Enoxaparin Sodium 40 mg 03/13/24 09:00 03/14/24 07:38 Enoxaparin Inj 40 Mg/0.4 Ml Syr SQ 04/12/24 08:59 40 mg QAM FREDO Administration Ferrous Sulfate 325 mg 03/09/24 09:00 03/14/24 07:38 Ferrous Sulfate 325 Mg Tab PO 04/08/24 08:59 325 mg QAM FREDO Administration Furosemide 20 mg 03/09/24 15:30 03/14/24 07:38 Furosemide Inj 20 Mg/2 Ml Vial IV 04/08/24 15:29 20 mg QAM FREDO Administration Vancomycin HCl 1,000 mg in 270 mls @ 200 mls/hr 03/13/24 18:00 03/14/24 09:24 Vancomycin Hcl IV 03/27/24 17:59 Infused Q12H FREDO Infusion Lidocaine 1 patch 03/07/24 09:00 03/14/24 07:56 Lidocaine 5% 1 Patch TD 04/06/24 08:59 1 patch QAM FREDO Administration Potassium Chloride 10 meq 03/07/24 09:00 03/14/24 07:43 Potassium Chloride 10 Meq Tabcr PO 04/06/24 08:59 10 meq DAILY FREDO Administration Sennosides 17.2 mg 03/07/24 09:00 03/14/24 07:43 Senna 8.6 Mg Tab PO 04/06/24 08:59 17.2 mg BID FREDO Administration Sodium Chloride 2 gm 03/07/24 09:00 03/14/24 07:38 Sodium Chloride 1 Gm Tablet PO 04/06/24 08:59 2 gm BID FREDO Administration Tramadol HCl 50 mg 03/09/24 21:12 03/12/24 10:14 Tramadol Hcl 50 Mg Tablet PO 04/08/24 21:11 50 mg Q6H PRN Administration Pain Vitamin D 25 mcg 03/07/24 09:00 03/14/24 07:37 Cholecalciferol 25 Mcg (1000 Units) Tab PO 04/06/24 08:59 25 mcg DAILY FREDO Administration (7) Pneumonia Laterality: unspecified laterality Lung location: unspecified part of lung Pneumonia type: due to unspecified organism Qualified Code(s): J18.9 - Pneumonia, unspecified organism
--- NOTE | 2024-03-14 16:38 | Hospitalist Progress Note ---
Date of Service March 14, 2024 Assessment & Plan (1) Bacteremia due to Staphylococcus: (2) Parapneumonic effusion: (3) Acute UTI: (4) Lateral malleolar fracture: (5) Fracture of proximal end of tibia: (6) Thrombocytosis: (7) Frequent falls: Plan The patient is a 68-year-old female with a past medical history including traumatic brain injury with delayed recovery, fractured scapula, multiple fractures of right sided ribs, frequent falls, generalized weakness, malnutrition, seizure history, hyponatremia, aphasia due to disease, executive function deficit, lumbar postlaminectomy syndrome and urinary incontinence. She is referred to the emergency department after being found between the toilet and wall facility for an unknown length of time after an unwitnessed fall. Staff became concerned because the patient had a simin on the right side of her face, and that she seemed more confused than her baseline. #MSSA Bacteremia -unknown source Continue vancomycin IV. Meropenem d/c 03/08 Blood culture: MSSA. source unknown - suspecting back Repeat blood cultures 03/09: no growth 48 hours TTE: without vegetations MRI spine: changes at T10/T11 associate with hardware, concern for osteomyelitis. Possible Small developing abscess or phlegmon. Pain pump functioning properly post MRI. Infectious disease consulted - continue IV vancomycin. Consider thoracentesis. May need JOHN. -bone bx - discussed with RAMOS ASHLEY we do NOT have capabilities to do this here, consider surgery. Attempted to transfer patient to [facility] 03/11 but denied due to their bed capacity. Attempted again 03/13 and no bed availability. Discussed w/ [facility] hospitalist service 03/14 and they declined transfer to their facility given she has negative BC now and they did not feel she required a bone bx. #Parapneumonic effusions bilaterally Chest CT 03/06: moderate volume b/l new pleural effusions w/ overlying consolidation/atelectasis & corresponding interstitial infiltrates. Pulmonary consulted for possible thoracentesis - continue diuretics, would re commend against thoracentesis. etiology HEpEF vs hypoalbuminemia Patient has been stable on room air for duration of stay - recheck CXR shows stable effusion, but pt continues to be net negative, will continue diuresis AM BMP #Urinary tract infection- UC: strep gallalyticus Will be covered by vanco, but not source of bacteremia. Concerning in group with strep bovis for colon cancer. #Right proximal tibial and lateral malleolar fracture- Read as possibly acute by radiology overnight Ortho evaluated patient 03/07 - no fracture identified. Likely right knee contusion and right ankle sprain. Immobilizer from ED removed - cast padding and VICKIE wrap applied for comfort. PT/OT - recommend return to prior living arrangement, would not be possible if pt needs IV antibiotics #Multiple vertebral fractures, with unclear timeframe- Patient has had significant trauma admission at [facility] in [place] in December this year. Prior back surgeries with Dr. Mesa ([facility]) Fractures at T8, L4 and L5 have been referred to but, appears to be more chronic than acute Consult orthopedic spine - recommend mobilization, no brace or surgery. Presently on a baclofen pump, Which has been recently refilled by pain management service, and reportedly is filled until appointment 03/16 #Thrombocytosis/progressive anemia- Platelets have been 298 at baseline, but on admission were 1038 - starting to down trend (779 today) Hemoglobin baseline has been 12-13, but 8.6 on admission - stable at 9.1 Iron panel: transferrin sat 7%, iron 11, TIBC 160 Vitamin B12: 154, started on PO supplementation, Patient declined B12 injection. 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 No concerns myeloproliferative neoplasm. - continue to treat iron deficiency. S/p Venofer x2 - continue on PO supplementation - JAK2 mutation testing pending AM CBC #Abnormal CT finding CTAP 03/06: Possible enteritis, possible large bowel loops and question of possible malignancy with anasarca GI consulted - could perform flex sigmoidoscopy later in inpatient stay if more stable, otherwise can be done outpatient. Discussed w/ GI 03/14 - defer flex sigmoidoscopy to outpatient. Hgb has been stable, no signs of bleeding. #Hypokalemia- Patient takes 10meq daily K 3.1 - continue to replete as necessary. #Hypomagnesemia- Magnesium 1.6 s/p IV replacement #Aphasia Chronic after stroke. Able to speak some, reliable answer yes or no questions. Able to understand/comprehend what you are saying. Communication Board for patient Extensively discussed patient's care w/ POShania, Arben on 03/14. POA agreeable to palliative care consultation. #Long-term disposition, patient has been seen by palliative care (wendy) in the outpatient setting PT/OT - recommend return to [facility] but unable to do so if on IV antibiotics Dispo: continued inpatient stay DVT proh: anemia stable, will begin lovenox Admission and Anticipated Discharge Date Admission Date: March 07, 2024 Subjective Patient seen and examined this morning. Patient denied pain. [facility] refused patient transfer 03/14. Physical Exam Constitutional: WD/WN, vitals as above Eyes: PERRL, conjunctivae normal, anicteric sclerae Respiratory: breathing unlabored Cardiovascular: well perfused Results & Data Results & Data Vital Signs (Past 12 Hours) Vital Signs Temp Pulse Resp BP Pulse Ox O2 Del Method 03/14/24 15:43 36.8 C 88 18 146/76 H 93 Room Air 03/14/24 08:37 36.7 C 82 18 138/80 95 Room Air 03/14/24 07:35 Room Air PG Care Time/CCT Total # of Minutes Spent Total Time Spent with Patient: Total time spent is greater than 50% in coordination of care (as documented) at patient's floor/unit and/or counseling patient: Coding Level of Care Code 48551 SUB INP/OBS CARE 3/50MIN Diagnoses Bacteremia due to Staphylococcus R78.81; B95.8 Parapneumonic effusion J18.9; J91.8 Acute UTI N39.0 Lateral malleolar fracture S82.61XA Encounter type: initial encounter Fracture alignment: displaced Fracture type: closed Laterality: right Fracture of proximal end of tibia S82.101A Encounter type: initial encounter Fracture morphology: unspecified fracture morphology Fracture type: closed Laterality: right Thrombocytosis D75.839 Frequent falls R29.6 (4) Lateral malleolar fracture Encounter type: initial encounter Fracture alignment: displaced Fracture type: closed Laterality: right Qualified Code(s): S82.61XA - Displaced fracture of lateral malleolus of right fibula, initial encounter for closed fracture (5) Fracture of proximal end of tibia Encounter type: initial encounter Fracture morphology: unspecified fracture morphology Fracture type: closed Laterality: right Qualified Code(s): S82.101A - Unspecified fracture of upper end of right tibia, initial encounter for closed fracture
[2024-03-15] MEDS: VANCOMYCIN LEVEL ONE (06:24)
[2024-03-15 06:53] LABS: Hematocrit (blood only) 25.8 % (37.0-47.0); Hemoglobin 7.9 g/dl (12.0-16.0); Mean Corpuscular Hemoglobin 23.6 pg (25.0-34.0); Mean Corpuscular Hgb Conc 30.6 g/dL (32.0-36.0); Mean Platelet Volume 9.1 fL (9.4-12.4); Platelet Count 714 K/uL (130-400); RDW Coefficient of Variation 17.4 % (11.5-14.5); RDW Standard Deviation 48.2 fL (36.4-46.3); Red Blood Count 3.35 M/uL (4.20-5.40); White Blood Count 7.94 K/ul (4.8-10.8)
[2024-03-15 07:08] LABS: BUN Creatinine Ratio 15.4 (10-20); Calcium 8.4 mg/dl (8.6-10.3); Creatinine Clr Calc Pharmacy 99.2 ml/min
[2024-03-15] MEDS: POTASSIUM CHLORIDE CRTAB 20 MEQ TABCR PO STA (08:40)
[2024-03-15 09:10] LABS: Magnesium 1.6 mg/dl (1.7-2.4)
--- NOTE | 2024-03-15 09:57 | Palliative Care Consultation ---
Date of Consultation March 15, 2024 Assessment & Plan (1) Counseling regarding advanced directives and goals of care: (2) Palliative care by specialist: Plan Met with pt at bedside. Pt with expressive aphasia, minimally communicative and expressed frustration with difficulty communicating. She does nod yes/no and able to verbalize no and occasional single word answers. Difficult to determine if patient currently possesses decisional capacity. Although she appears to answer yes/no appropriately to simple questions, she is not able to convey understanding of personal PMHx, current medical condition, treatment options nor the risks / benefits of those options, and lack of ability to make decisions based on such knowledge. Pt does currently require a proxy for medical decisions. Hospital does not have written documentation of patient wishes concerning his chosen proxy for medical decisions. She reports no living family, and did assert yes to allowing her friend Arben Killian as her chosen MDM proxy. She nodded yes to give permission to discuss her medical care and goals of care with Arben and Gabriel. She did nod assertively to verify her wish for DNR/DNI status. Phone contact made with Arben, who shared that he is the pt's HCPOA and Anjelica is a secondary HCPOA. The pt has one sister and one brother who live in [place] and are not routinely available due to their own health issues. He shared that he and the pt have been friends for over 25yrs and Anjelica has been their friend for more than 15yrs. He and Anjelica help with pt's medical care planning and communicate frequently with her siblings. Arben shared concern that the pt has had a very poor quality of life and has expressed desire to not have any aggressive therapies. He suggested hospice care but would want to have deeper discussion with Anjelica and patient prior to making any changes. He shared that the pt completed [employer] packet when she completed her AD and given her current health he believes hospice would be most fitting with her wishes. We scheduled a [facility] meeting for 11am on 03/16. Requested Arben bring pt's AD and [facility] W[facility] papers with him. History of Present Illness Reason for Consultation: goals of care Requesting Physician: Isac Estrada Attending Physician: Isac Estrada History of Present Illness The patient is a 68-year-old female with a past medical history including traumatic brain injury with delayed recovery, fractured scapula, multiple fractures of right sided ribs, frequent falls, generalized weakness, malnutrition, seizure history, hyponatremia, aphasia due to disease, executive function deficit, lumbar postlaminectomy syndrome and urinary incontinence. She is referred to the emergency department after being found between the toilet and wall after an unwitnessed GLF at [facility]. Staff became concerned because the patient had a simin on the right side of her face, and that she seemed more confused than her baseline. Allergies Allergy/AdvReac Type Severity Reaction Status Date / Time cephalexin Allergy Severe Anaphylaxis Verified 02/25/24 10:29 Penicillins AdvReac Mild nausea Verified 02/25/24 10:29 Home Medications Medication Instructions Recorded Confirmed Type baclofen 10 mg tablet 10 mg PO DAILY PRN spasms #90 tabs 12/01/22 03/07/24 Rx celecoxib 200 mg capsule 200 mg PO QAM #90 caps 03/20/23 03/07/24 Rx clopidogrel 75 mg tablet 75 mg PO HS #90 tabs 03/20/23 03/07/24 Rx atorvastatin 10 mg tablet 10 mg PO 3XWK 09/28/23 03/07/24 History duloxetine 30 mg capsule,delayed 30 mg PO DAILY #30 caps 11/12/23 03/07/24 Rx release (Cymbalta) cholecalciferol (vitamin D3) 25 25 mcg PO DAILY 02/18/24 03/07/24 History mcg (1,000 unit) capsule docusate sodium 100 mg capsule 100 mg PO BID 02/18/24 03/07/24 History enoxaparin 30 mg/0.3 mL 30 mg subcut BID 02/18/24 03/07/24 History subcutaneous syringe (Lovenox) lidocaine 4 % topical patch 1 patch topical DAILY 02/18/24 03/07/24 History (Aspercreme (lidocaine)) ondansetron HCl 4 mg tablet 4 mg PO Q4H PRN Nausea And Vomiting 02/18/24 03/07/24 History sennosides 8.6 mg tablet (Senokot) 17.2 mg PO BID 02/18/24 03/07/24 History Wheelchair (Manual) #1 ea 02/25/24 02/25/24 Rx denosumab 60 mg/mL subcutaneous 60 mg subcut UD 03/07/24 03/07/24 History syringe (Prolia) morphine concentrate 100 mg/5 mL 10 mg PO Q1H PRN SOB/Pain 03/07/24 03/07/24 History (20 mg/mL) oral solution sodium chloride 1 gram tablet 2,000 mg PO BID 03/07/24 03/07/24 History tramadol 50 mg tablet 50 mg PO Q8H PRN Severe Pain 03/07/24 03/07/24 History (Scale Score 7-10) Patient History Medical History Headache, post-traumatic, acute Vascular dementia B12 deficiency expressive aphasia Aphasia, post-stroke Hemiparesis affecting right side as late effect of cerebrovascular accident Aphasia as late effect of cerebrovascular accident History of cerebrovascular accident from left carotid artery occlusion involving left middle cerebral artery territory Hemiplegia Right side > wears AFO brace on RLE, no control of right arm History of CVA (cerebrovascular accident) 1998 large left MCA territory in setting of occluded left carotid potentially related to oral contraception at that time > chronic spastic right hemiparesis, flaccid upper limb and mild to moderate expressive aphasia > on plavix > follows with [place] neuro Fall External constriction of left ring finger, initial encounter Sciatica Osteoporosis with fracture Hyperplastic colon polyp Ring or other jewelry causing external constriction, initial encounter Fall Closed femur fracture Memory loss Left carotid artery occlusion Vasovagal syncope if not laying flat during blood draws Encounter for pre-operative examination Memory problem History of depression 1998 per pt Hypertension controlled, stable per pt Chronic constipation with overflow 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 (CVA) 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 (CVA) CVA (cerebral vascular accident) Laceration of eyebrow, right Head trauma Osteoporosis Stroke Surgical History Presence of intrathecal pump Family history of reaction to anesthesia Mother: slow to wake History of gynecologic surgery Labial "removal" History of back surgery Lumbar fusion x2 History of colonoscopy History of tooth extraction History of tonsillectomy Family History Father Cancer Family history of esophageal cancer Other No pertinent family history Denies family history of Ovarian cancer Prostate cancer Diabetes Myocardial infarction Breast cancer Colorectal cancer Hypertension Social History Smoking Status: Never smoker Tobacco Type: Declines Age Started Using Tobacco: 12; Age Quit Using Tobacco: 22; packs per day: 0.1; Second Hand Exposure: No; Do You Dip or Chew Tobacco: No; Hx Alcohol Use: No Hx Substance Use: No Preferred Language: Turkmen Communication Ability: Impaired Communication Ability Comment: Expressive aphasia from previous CVA Visual Impairment: Limited Manager Export 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 Beliefs That Will Affect Care: None marital status: Single Current Living Situation: Residential Current Living Situation Comment: [place] current occupational status: retired How many Children do You have: 0 Feels Safe at Home: Yes Childhood Exposure to Second-Hand Smoke: Yes caffeine: Yes (coffee) Dental Care, Regularly: Yes Physical Activity Frequency: Daily Seatbelt Use: always Sunscreen Use: Yes Assistive Devices: Wheelchair Review of Systems Review of Systems: YO fully, pt with baseline expressive aphasia Constitutional: + fatigue and + weakness Eyes: no problem reported Ear, Nose, Mouth, Throat: + problem reported Respiratory: no problem reported Cardiovascular: no problem reported Gastrointestinal: no problem reported Musculoskeletal: + back pain and + limited range of motio n right arm pain, unable to qualify further Physical Exam Constitutional: WD/WN, vitals as above Eyes: PERRL, conjunctivae normal, anicteric sclerae Respiratory: breathing unlabored Cardiovascular: well perfused Results & Data Vital Signs (Past 12 Hours) Vital Signs Temp Pulse Resp BP Pulse Ox O2 Del Method 03/15/24 07:36 37.2 C 64 18 127/72 98 Room Air Laboratory Results Abnormal lab results 03/15/24 Range/Units 06:07 RBC 3.35 L (4.20-5.40) M/uL Hgb 7.9 L (12.0-16.0) g/dl Hct 25.8 L (37.0-47.0) % MCV 77.0 L (80.0-100.0) fL MCH 23.6 L (25.0-34.0) pg MCHC 30.6 L (32.0-36.0) g/dL RDW Std Deviation 48.2 H (36.4-46.3) fL RDW Coeff of Tera 17.4 H (11.5-14.5) % Plt Count 714 H (130-400) K/uL MPV 9.1 L (9.4-12.4) fL Sodium 134 L (136-145) mmol/L Potassium 3.0 L (3.5-5.1) mmol/L Creatinine 0.39 L (0.6-1.2) mg/dl Calcium 8.4 L (8.6-10.3) mg/dl Magnesium 1.6 L (1.7-2.4) mg/dl Diagnostic Findings Lumbar Spine CT 03/06/24 19:06 Exam(s): CT L SPINE With Contrast IV Amt: 90 ml optiray 320 EXAM: CT Lumbar Spine With Intravenous Contrast CLINICAL HISTORY: Reason for exam: Trauma. TECHNIQUE: Axial computed tomography images of the lumbar spine with intravenous contrast. CTDI is 16 mGy and DLP is 717 mGy-cm. Automated exposure control was utilized for the study. A dose lowering technique was utilized adhering to the principles of ALARA. CONTRAST: Patient received 90 ml optiray 320 of IV contrast COMPARISON: None FINDINGS: Image quality is hampered by motion and metallic beam hardening artifacts. Vertebrae: Postsurgical spine/posterior interbody fusion instrumentation from T11-S1 with bilateral pedicle screws and interconnecting rods. Osteoporosis. Possible L4 and L5 vertebral fractures. Moderate dextroscoliosis. Exaggerated lumbar lordosis. There is diastasis mild/moderate widening of the right SI joint. Cannot exclude subtle fracture of the left sacral ala. Discs/spinal canal/neural foramina: Multilevel moderately advanced degenerative spondylosis. Soft tissues: Soft tissue edema/anasarca. Other findings: . Bilateral pleural effusions. IMPRESSION: Limited exam. Postsurgical thoracolumbosacral spine. Osteoporosis. Possible L4 and L5 vertebral fractures. Suspect subtle fracture of the left sacral ala. Moderate dextroscoliosis. Exaggerated lumbar lordosis. Multilevel moderately advanced degenerative spondylosis. Electronically signed by: Shanti Carrillo MD, DABR 03/07/24 00:10 AM Abdomen/Pelvis CT 03/06/24 19:07 Exam(s): CT ABDOMEN + PELVIS With Contrast IV Amt: 90 ml optiray 320 EXAM: CT Abdomen and Pelvis With Intravenous Contrast CLINICAL HISTORY: Reason for exam: Trauma. TECHNIQUE: Axial computed tomography images of the abdomen and pelvis with intravenous contrast. CTDI is 26.96 mGy and DLP is 691.25 mGy-cm. Automated exposure control was utilized for the study. A dose lowering technique was utilized adhering to the principles of ALARA. CONTRAST: Patient received 90 ml optiray 320 of IV contrast COMPARISON: None. FINDINGS: A large size electronic battery pack/metallic Device over the mid ventral abdominal wall. Patient's right upper left over the mid/lower abdomen. Diagnostic sensitivity of the exam is markedly hampered/reduced by motion and beam hardening artifacts. Lung bases: Concurrently performed CT chest is reported separately. ABDOMEN: Liver: Unremarkable. Mildly dilated intrahepatic bile ducts. Gallbladder and bile ducts: Unremarkable. No calcified stones. No ductal dilation. Pancreas: Unremarkable as visible.. Spleen: No splenomegaly. Adrenals: Unremarkable. No mass. Kidneys and ureters: No discernible solid mass. No hydronephrosis. Stomach and bowel: A moderately large size hiatal hernia. There is likely mucosal thickening of the fluid/gas filled normal caliber small bowel (series 1700 image 36). Gas/stool filled mild/moderately distended large bowel. There is irregularly lobulated abnormal appearing wall thickening of a moderately distended rectum, suspicious of malignancy (series 17 image 246, series 1700 image 45). PELVIS: Appendix: Not visualized. No obvious acute findings in the region. Bladder: Uniform mild bladder wall thickness. No mass. Reproductive: Likely a lobulated anteverted atrophic uterus present (series 1701, image 62). ABDOMEN and PELVIS: Intraperitoneal space: Unremarkable. No free air. No significant fluid collection. Bones/joints: Diffuse osseous demineralization. Postsurgical thoracolumbosacral spine with posterior fusion instrumentation. Multilevel degenerative spondylosis. Right proximal femur orthopedic instrumentation.. Hip osteoarthrosis. Soft tissues: Lower abdominal/pelvic wall edema/anasarca. Vasculature: Diffuse calcified atherosclerosis of the aortoiliac vasculature and branch vessels. No abdominal aortic aneurysm. Lymph nodes: No enlarged lymph nodes.. IMPRESSION: A markedly limited/nondiagnostic exam. A moderately large size hiatal hernia. Possibly mucosal thickening of fluid/gas filled normal caliber small bowel loops/enteritis. Clinical correlation advised Gas/stool filled mild/moderately distended large bowel loops. Irregular lobulations/abnormal wall thickening of a moderately distended rectum, suspicious of malignancy. Recommend follow-up. Additional findings as described above. Electronically signed by: Shanti Carrillo MD, ANAR 03/06/24 22:[address] 03/06/24 19:07 Exam(s): CT C SPINE EXAM: CT Cervical Spine Without Intravenous Contrast CLINICAL HISTORY: Reason for exam: Trauma. TECHNIQUE: Axial computed tomography images of the cervical spine without intravenous contrast. CTDI is 16.98 mGy and DLP is 717.98 mGy-cm. Automated exposure control was utilized for the study. A dose lowering technique was utilized adhering to the principles of ALARA. COMPARISON: CT cervical spine: 11/22/2023 FINDINGS: Vertebrae: C4 vertebral 3.5 mm of anterolisthesis. C7 vertebral 3 mm anterolisthesis. No acute fracture. Discs/spinal canal/neural foramina: Redemonstrates advanced multilevel degenerative disc/endplate and posterior elements spondylosis with variable degrees of neuroforaminal and central canal stenosis. Soft tissues: Unremarkable. Other findings: Pulmonary biapical pleural parenchymal scarring. . IMPRESSION: No significant abnormalities post trauma. . Electronically signed by: Shanti Carrillo MD, DABR 03/06/24 21:[address] 03/06/24 19:07 Exam(s): CT CHEST With Contrast IV Amt: 90 ml optiray 320 EXAM: CT Chest With Intravenous Contrast CLINICAL HISTORY: Reason for exam: Trauma. TECHNIQUE: Axial computed tomography images of the chest with intravenous contrast. CTDI is 11 mGy and DLP is 311 mGy-cm. Automated exposure control was utilized for the study. A dose lowering technique was utilized adhering to the principles of ALARA. CONTRAST: Patient received 90 ml optiray 320 of IV contrast COMPARISON: CT chest: 11/22/2023 FINDINGS: Motion-induced image degradation limits anatomical details. Lungs: Central airways are patent. Bilateral diffuse bronchial wall thickening. Bilateral lower lung lobes posteriorly consolidation/atelectasis and surrounding interstitial opacities. Pleural space: Moderate volume bilateral pleural effusions RT>LT. No pneumothorax. Heart: Borderland/mild cardiomegaly. Thickly calcified mitral valve annulus. No significant pericardial effusion. No significant coronary artery calcifications. Bones/joints: Osteopenia. A T8 vertebral superior endplate mild/moderate chronic compression fracture . No acute fracture. No dislocation. Degenerative changes of the spine. Increased thoracic kyphosis. Postsurgical thoracolumbar spine. A nondisplaced old fracture of the right third rib posteriorly. Soft tissues: Unremarkable. Vasculature: Unremarkable. No thoracic aortic aneurysm. Lymph nodes: Multiple calcified left hilar lymph nodes in the left lower lung lobe calcified nodules/granulomas. No lymphadenopathy by CT size criteria... IMPRESSION: Moderate volume bilateral new pleural effusions with overlying consolidation/atelectasis and corresponding interstitial infiltrates RT>LT Mild cardiomegaly. A nondisplaced old fracture of the right third rib posteriorly. A T8 vertebral superior endplate mild/moderate chronic compression/fracture seen similar to the prior exam. Electronically signed by: Shanti Carrillo MD, DABR 03/06/24 23:[address] 03/06/24 19:07 Exam(s): CT FACIAL Without Contrast EXAM: CT Maxillofacial Without Intravenous Contrast CLINICAL HISTORY: Reason for exam: Trauma. TECHNIQUE: Axial computed tomography images of the face without intravenous contrast. CTDI is 26.96 mGy and DLP is 291.25 mGy-cm. Automated exposure control was utilized for the study. A dose lowering technique was utilized adhering to the principles of ALARA. COMPARISON: None. FINDINGS: Motion-induced image degradation. Bones/joints: There is a right nasal bone fracture with angulation. No other acute facial bone fracture seen. Bilateral TMJ osteoarthritis. Soft tissues: Unremarkable. Orbits: Unremarkable. Sinuses: Unremarkable. No air-fluid levels.. IMPRESSION: Right nasal bone fracture. Otherwise no significant abnormalities post trauma. . Electronically signed by: Shanti Carrillo MD, DUSTIN 03/06/24 23:[address] 03/06/24 19:07 Exam(s): CT HEAD Without Contrast EXAM: CT Head Without Intravenous Contrast CLINICAL HISTORY: Reason for exam: trauma. TECHNIQUE: Axial computed tomography images of the head/brain without intravenous contrast. CTDI is 65.68 mGy and DLP is 1098.96 mGy-cm. Automated exposure control was utilized for the study. A dose lowering technique was utilized adhering to the principles of ALARA. COMPARISON: CT brain: 11/22/2023 FINDINGS: Extensive motion/beam hardening artifact limits the sensitivity of the exam. Brain: Redemonstrates a large size encephalomalacia involving left chávez radiata with exvacuo-dilatation of the left lateral ventricle/ventriculomegaly. No acute intracranial hemorrhage or midline shift of structures. No abnormal extra-axial fluid collections. Moderate cerebral atrophy with widening of the extra-axial spaces. Basilar cisterns are patent.. Bones/joints: Unremarkable. No acute fracture. Soft tissues: Unremarkable. Sinuses: No acute sinusitis. Mastoid air cells: Unremarkable as visualized. No mastoid effusion.. IMPRESSION: No conclusive evidence of acute intracranial abnormality. . Electronically signed by: Shanti Carrillo MD, DUSTIN 03/06/24 22:[address] 03/06/24 19:07 Exam(s): CT T SPINE IV Amt: 90 ml optiray 320 EXAM: CT Thoracic Spine With Intravenous Contrast CLINICAL HISTORY: Reason for exam: trauma. TECHNIQUE: Axial computed tomography images of the thoracic spine with intravenous contrast. CTDI is 16.98 mGy and DLP is 717 mGy-cm. Automated exposure control was utilized for the study. A dose lowering technique was utilized adhering to the principles of ALARA. CONTRAST: Patient received 90 ml optiray 320 of IV contrast COMPARISON: None. FINDINGS: Diagnostic sensitivity of the exam is reduced by motion artifact. Vertebrae: Diffuse osseous demineralization. T8 vertebral superior endplate anterior wedge compression of indeterminant age (series 1801, image 33).. Otherwise no thoracic vertebral acute fracture is seen. No segmental malalignment. Increased thoracic kyphosis. Posteriorly nondisplaced nonunited fracture of the right second rib (series 302 image 13). Discs/spinal canal/neural foramina: No acute findings. No spinal canal stenosis. Soft tissues: Unremarkable. Other findings: Demonstrates moderate volume bilateral pleural effusions with overlying consolidation/atelectasis and surrounding infiltrates in the lower lobes. Cardiomegaly. Multiple calcified left hilar lymph nodes and left lower lobe calcified nodules/granulomas. IMPRESSION: Suboptimally evaluated due to motion artifact. A T8 vertebral superior endplate anterior wedge compression/fracture of indeterminant age. Otherwise no significant abnormalities post trauma. . Electronically signed by: Shanti Carrillo MD, DUSTIN 03/06/24 22:48 PM Tibia/Fibula X-Ray 03/06/24 19:08 Exam(s): XR RIGHT TIB/FIB, 2 views EXAM: XR Right Tibia and Fibula, 2 Views CLINICAL HISTORY: Reason for exam: Trauma. TECHNIQUE: Frontal and lateral views of the right tibia and fibula. COMPARISON: None. FINDINGS: Bones/joints: Diffuse osseous demineralization. Intramedullary anaid/nail fixation of the visualized right femur. There is a minimally displaced intra-articular fracture of the lateral corner of the tibial plateau. Laterally mild soft tissue swelling of the right knee. Tricompartmental moderate right knee osteoarthrosis. Suspect laterally a subtle nondisplaced cortical fracture of the lateral malleolus. No dislocation. Soft tissues: Soft tissue swelling of the ankle more laterally. No radiopaque foreign body.. IMPRESSION: Osteopenia. A mildly displaced intra-articular fracture of the lateral corner of the right proximal tibia. Likely a subtle nondisplaced cortical fracture laterally of the lateral malleolus. Periarticular soft tissue swelling more laterally. Tricompartmental right knee osteoarthrosis. . Electronically signed by: Shanti Carrillo MD, DABR 03/06/24 23:56 PM Ankle X-Ray 03/07/24 07:19 EXAM: XR ankle RT min 3V routine CLINICAL HISTORY: RIGHT LOWER LEG TRAUMA RIGHT KNEE AND ANKLE PAIN. TECHNIQUE: X-ray images of the right ankle were obtained in anteroposterior (AP), lateral, and mortise projections. COMPARISON: X-ray dated 11/03/2023. FINDINGS: Bone Structure: Status post back slab/plaster cast limiting fine details. Reduced mineralization of the imaged bony structures seen, suggests osteopenia with prominent trabeculae. Bone normal aligned. No evidence of fracture or dislocation. No osseous lesions or abnormalities were identified. Generazlied osteopenia. Joint Spaces: Joint spaces are normal. No evidence of joint effusion or subluxation. Soft Tissues: Soft tissues appear normal and unremarkable. No soft tissue swelling, calcifications, or foreign bodies noted. Additional Findings: Slight spurring of the hindfoot bone seen suggest insignificant/early degenerative changes IMPRESSION: 1. Overlying cast is limiting fine bony details. No evidence of acute fracture, dislocation, or significant soft tissue abnormalities. 2. Osteopenia. Disclaimer: A subtle bone abnormality or occult fracture may not be readily apparent on X-rays, thus clinical correlation and further imaging including follow-up 3D CT, MRI, or follow-up X-rays are advised as needed. Electronically signed by Misael Shin 03-07-2024 08:54 AM Knee X-Ray 03/07/24 07:19 EXAM: XR knee RT 1 or 2V routine CLINICAL HISTORY: RIGHT LOWER LEG TRAUMA RIGHT KNEE AND ANKLE PAIN. TECHNIQUE: X-ray images of the right knee were obtained in 2 views: Anteroposterior (AP) and lateral projections. COMPARISON: X-ray dated 09/28/2023. FINDINGS: Status post back slab/ plaster cast. Visible distal femur diaphysis shows instrumentation from earlier surgery, no periprosthetic lucencies seen to suggest loosening or infection. Bone Structure: Reduced mineralization of the imaged bones seen suggests osteopenia. Bone structure is normal and well-aligned. No evidence of acute fractures or dislocations. No osseous lesions or abnormalities were identified. Joint Spaces: Joint spaces are narrowed in medial and lateral tibiofemoral and patellofemoral compartments with sub articular sclerosis. Articular Surfaces: Intact. Patella: Patella is normal in position and alignment. No evidence of patellar dislocation or subluxation. Soft Tissues: Periarticular soft tissues appear normal and unremarkable. No soft tissue swelling, calcifications, or foreign bodies noted. IMPRESSION: 1. No evidence of acute fractures, or dislocations. 2. Tricompartmental degenerative changes. 3. Osteopenia. 4. Visible distal femur diaphysis shows instrumentation from earlier surgery, no periprosthetic lucencies seen to suggest loosening or infection. 5. Current radiograph remains interval stable since the prior X-ray of 09/28/2023. Disclaimer: A subtle bone abnormality or fracture may not be readily apparent on X-rays, thus clinical correlation and further imaging including follow-up CT, MRI, or follow-up X-rays are advised as needed. Electronically signed by Misael Shin 03-07-2024 08:44 AM Chest/Abdomen X-ray 03/09/24 13:40 PA CHEST RADIOGRAPH AND UPRIGHT AND SUPINE AP RADIOGRAPHS OF THE ABDOMEN CLINICAL HISTORY: Colonic distention PAIN PUMP POSITION FOR MRI COMPARISON STUDY: Chest radiograph March 08, 2024. CT of the chest, abdomen and pelvis March 06, 2024. FINDINGS: There is no pneumothorax. Pulmonary edema has progressed. Moderate bilateral pleural effusions with associated bibasilar opacities have increased. Cardiomegaly. Postoperative findings within the spine are noted. There is a right femoral internal fixation. Orientation of the left lower quadrant pain pump is normal. The entirety of the catheter is not well visualized on this exam. No contraindication to MRI within the chest, abdomen or pelvis. There is no free air. There is no radiographic evidence for a bowel obstruction. IMPRESSION: 1. Normal orientation of the left lower quadrant pain pump. No contraindication to MRI within the chest, abdomen or pelvis. 2. Progression of pulmonary edema with moderate bilateral pleural effusions and associated bibasilar opacities. 3. No free air or evidence for a bowel obstruction. ACT 112: Negative or not required by law. Electronically signed by: Conner Anand M.D. 03/09/2024 8:47 AM Lumbar Spine MRI 03/10/24 06:51 MR lumbar spine wo/w con CLINICAL HISTORY: bacteremia unknown source, eval hardware/pump infec TECHNIQUE: 3 plane localizer images, sagittal T2, sagittal T1, sagittal STIR, axial T1, axial T2 along with postcontrast axial T1 and sagittal T1 fat- saturated sequences were obtained of the lumbar spine, before and after intravenous administration of 12 mL of MultiHance. Comparison: Comparison is made to CT lumbar spine 02/05/2024 FINDINGS: There is extensive susceptibility artifact due to posterior fixation hardware and the exam is limited by patient motion. Within these limits, there is no abnormal enhancement or edema. The spinal ligaments are intact, without evidence of disruption or abnormal signal intensity. The spinal cord is normal in signal intensity and there is no evidence of cord contusion. There is no evidence of an extradural, intradural, extramedullary or intramedullary lesion. Visualized soft tissues are normal. IMPRESSION: Limited exam without evidence of drainable fluid collection or bony edema/enhancement to suggest osteomyelitis. No definite findings of acute fracture as suggested by prior exam. ACT 112: Negative or not required by law. Electronically signed by: Dex Moon M.D. 03/10/2024 1:56 PM Thoracic Spine MRI 03/10/24 06:52 MRI OF THE THORACIC SPINE WITH AND WITHOUT CONTRAST CLINICAL HISTORY: bacteremia unknown source, eval hardware/pump infection COMPARISON: Thoracic spine CT March 06, 2024. Chest CT November 22, 2023. Thoracic spine radiographs June 26, 2018. TECHNIQUE: Utilizing a 1.5 Pamela magnet and dedicated coil, multiplanar, multiecho imaging of the thoracic spine was performed before and after the intravenous administration of 5 cc. FINDINGS: This exam is moderately compromised given difficulty positioning and artifact from the spinal hardware. There are postoperative findings consistent with T11-S1 decompression and fusion. Bilateral pleural effusions are better depicted on prior chest CT. There are associated lower lobe airspace opacities. Please note that the lumbar spine MRI will be reported separately. Lucency adjacent to the bilateral T11 pedicle screws is depicted on spine CT March 06, 2021. The tip of the right screw slightly extends into the disc space. There is increased fluid signal within the T10-T11 disc space. There is paravertebral edema and enhancement. There is increased T2 signal and diminished T1 signal within the T10 and T11 vertebral bodies with erosion of the inferior endplate of T10 and superior endplate of T11. This erosion is new since CT of November 22, 2023. There is an associated small T2 hyperintense focus within the anterior epidural space that measures 0.9 x 0.8 x 0.2 cm. This enhances. No additional epidural abnormalities are identified. Thoracic cord signal suboptimally assessed on this exam but likely normal. This results in mild central canal narrowing. There is no severe stenosis within the thoracic spine. Several old mild thoracic spine compression fractures are present. No additional sites of inflammation are identified within the thoracic spine. IMPRESSION: 1. Status post T11-S1 decompression and fusion. Exam compromised given difficulty positioning and artifact from the surgical hardware. Please note that the lumbar spine MRI will be reported separately. 2. Lucency adjacent to the T11 pedicle screws, as shown on CT. Increased fluid signal within T10-T11 disc space with abnormal marrow signal within the T10 and T11 vertebral bodies with associated endplate erosive changes which are new since CT of November 22, 2023. Associated paravertebral edema and enhancement. Given the clinical history, the findings are suspicious for T10-T11 discitis with associated osteomyelitis and loosening of the T11 pedicle screws. Less likely, these findings could be aseptic and related to loosening/developing pseudarthrosis. An infectious process is the diagnosis of exclusion. Small associated abnormality within the anterior epidural space results in mild central canal stenosis. This may reflect a small developing epidural abscess or phlegmon. No severe central canal stenosis within the thoracic spine. 3. Bilateral pleural effusions with associated lower lobe airspace opacities, better depicted on prior CT. 4. Several old mild thoracic spine compression fractures. ACT 112: Negative or not required by law. Electronically signed by: Conner Anand M.D. 03/10/2024 2:26 PM Chest X-Ray 03/12/24 08:00 XR chest 2V PA/lateral CLINICAL HISTORY: recheck effusions COMPARISON STUDY: Chest CT March 06, 2024. Chest radiograph March 09, 2024. FINDINGS: Postoperative findings within the spine are partially imaged. Old post traumatic findings within the right hemithorax are incidentally noted. There is no pneumothorax. [id number]-ud-xyholixy bilateral pleural effusions are unchanged. There is persistent pulmonary edema with bibasilar opacities. Cardiomediastinal silhouette is stable. IMPRESSION: 1. No change in small to moderate bilateral pleural effusions with associated bibasilar opacities. 2. Persistent pulmonary edema. ACT 112: Negative or not required by law. Electronically signed by: Conner Anand M.D. 03/12/2024 11:36 AM Medications Administered Current Inpatient Medications Acetaminophen (Acetaminophen 325 Mg Tab) 650 mg PO Q4H PRN PRN Reason: Pain or Fever Stop: 04/06/24 03:08 Last Admin: 03/10/24 03:50 Dose: 650 mg Atorvastatin Calcium (Atorvastatin 10 Mg Tab) 10 mg PO [id number] [facility] Stop: 04/06/24 08:59 Last Admin: 03/14/24 07:37 Dose: 10 mg Baclofen (Baclofen 10 Mg Tab) 10 mg PO DAILY PRN PRN Reason: spasms Stop: 04/06/24 03:08 Last Admin: 03/12/24 10:14 Dose: 10 mg Cyanocobalamin (Cyanocobalamin (B-12) 100 Mcg Tablet) 100 mcg PO QAM [facility] Stop: 04/07/24 08:59 Last Admin: 03/15/24 07:52 Dose: 100 mcg Docusate Sodium (Docusate Sodium 100 Mg Cap) 100 mg PO BID [facility] Stop: 04/06/24 08:59 Last Admin: 03/15/24 07:51 Dose: Not Given Duloxetine HCl (Duloxetine Hcl 30 Mg Cap) 30 mg PO DAILY [facility] Stop: 04/06/24 08:59 Last Admin: 03/15/24 07:52 Dose: 30 mg Enoxaparin Sodium (Enoxaparin Inj 40 Mg/0.4 Ml Syr) 40 mg SQ QAM [facility] Stop: 04/12/24 08:59 Last Admin: 03/15/24 07:47 Dose: 40 mg Ferrous Sulfate (Ferrous Sulfate 325 Mg Tab) 325 mg PO QAM [facility] Stop: 04/08/24 08:59 Last Admin: 03/15/24 07:52 Dose: 325 mg Furosemide (Furosemide Inj 20 Mg/2 Ml Vial) 20 mg IV QAM [facility] Stop: 04/08/24 15:29 Last Admin: 03/15/24 07:49 Dose: 20 mg Hydrocortisone (Hydrocortisone 2.5% Cr 30 Gm Tube) 1 appln EXT BID PRN PRN Reason: Itching Stop: 04/11/24 10:08 Vancomycin HCl (Vancomycin Hcl) 1,000 mg in 270 mls @ 200 mls/hr IV Q12H [facility] Stop: 03/27/24 17:59 Last Infusion: 03/15/24 07:41 Dose: Infused Lidocaine (Lidocaine 5% 1 Patch) 1 patch TD QAM [facility] Stop: 04/06/24 08:59 Last Admin: 03/15/24 08:40 Dose: 1 patch Miscellaneous Information (Vancomycin Consult Active) 1 each N/A UD PRN PRN Reason: Consult Stop: 04/06/24 01:21 Baclofen Intra- (Thecal Infusion) 0 mcg IT .continuous infusion [facility] Stop: 04/06/24 03:08 Ondansetron HCl (Ondansetron 4 Mg Od Tab) 4 mg PO Q4H PRN PRN Reason: Nausea And Vomiting Stop: 04/06/24 03:17 Potassium Chloride (Potassium Chloride 10 Meq Tabcr) 10 meq PO DAILY [facility] Stop: 04/06/24 08:59 Last Admin: 03/15/24 07:51 Dose: 10 meq Sennosides (Senna 8.6 Mg Tab) 17.2 mg PO BID [facility] Stop: 04/06/24 08:59 Last Admin: 03/15/24 07:51 Dose: Not Given Sodium Chloride (Sodium Chloride 1 Gm Tablet) 2 gm PO BID [facility] Stop: 04/06/24 08:59 Last Admin: 03/15/24 07:53 Dose: 2 gm Tramadol HCl (Tramadol Hcl 50 Mg Tablet) 50 mg PO Q6H PRN PRN Reason: Pain Stop: 04/08/24 21:11 Last Admin: 03/12/24 10:14 Dose: 50 mg Vitamin D (Cholecalciferol 25 Mcg (1000 Units) Tab) 25 mcg PO DAILY [facility] Stop: 04/06/24 08:59 Last Admin: 03/15/24 07:52 Dose: 25 mcg PG Care Time/CCT Total # of Minutes Spent Total Time Spent with Patient: Total time spent is greater than 50% in coordination of care (as documented) at patient's floor/unit and/or counseling patient: [place] [address] IN/OBS CONSULT LVL 4,60M Patient Type New History Expanded Problem Focused Exam Expanded Problem Focused Medical Decision Making Moderate Complexity Diagnoses Counseling regarding advanced directives and goals of care Z71.89 Palliative care by specialist Z51.5
--- NOTE | 2024-03-15 10:22 | Pharmacy Report ---
Pharmacy PK ABX Note - Date of Service March 15, 2024 - Assessment and Plan Assessment 68 year old F receiving Vancomycin for treatment of MSSA bacteremia (unknown source, possible spinal infection) and Streptococcus gallalyticus UTI * Day #9 of antimicrobial therapy. 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 * Labs/Vitals: Afebrile and without leukocytosis. Lactate normal. SCr at baseline. * Micro: MRSA nasal swab negative, blood cultures (03/07) 1 of 2 growing MSSA, repeat blood cultures (03/09) show no growth at 5 days, urine culture growing Streptococcus gallalyticus. Plan Vancomycin * Current regimen: 1000 mg IV every 12 hours * Trough level obtained 03/15/24 resulted as 14.3 mcg/mL. This is predicted to achieve target AUC/TAMY of 400-600 mg/L.hr * Predicted AUC at steady state: 473 mg/L.hr * Continue 1000 mg IV every 12 hours * Will repeat level in the next 48-72 hours if therapy is continued and/or change in patient clinical status Pharmacy will continue to follow and will adjust dose/frequency as necessary. Thank you. Pharmacy has transitioned to AUC monitoring for vancomycin. AUC/TAMY is the preferred PK/PD target and is associated with decreased risk of nephrotoxicity compared to traditional trough targets.
[2024-03-15] MEDS: MAGNESIUM SULFATE / D5W 1 GM/100 ML BAG IV ONE (11:08)
--- NOTE | 2024-03-15 15:48 | Infectious Disease Progress Nt ---
Date of Service March 15, 2024 Assessment & Plan (1) Fracture, thoracic vertebra, compression: (2) Abnormality of rectum: (3) Right ankle sprain: (4) Closed fracture of nasal bone: (5) Lateral malleolar fracture: (6) Thrombocytosis: (7) Pneumonia: (8) Bacteremia due to Staphylococcus: Plan This is a 68-year-old female with a past medical history of traumatic brain injury, fractured scapula, multiple fractures of the right rib, frequent falls, seizures, aphasia, executive function deficit, lumbar post laminectomy syndrome, urinary incontinence, CVA with residual R hemiparesis who presents from a halfway facility after she was found on the ground between the toilet and the wall of the facility for an unknown period of time. Patient was more confused from her baseline. Patient has expressive aphasia and cannot provide a history. History obtained from chart review. Apparently she was found to have redness and swelling of the right side of her face and right lower extremity. Patient does not remember falling. She is unable to tell me why she presented to the hospital. She tells me that she has back pain and R leg pain .. In the ED, temperature 37.3, pulse 109, RR 18, BP 120/86, O2 sats 94% on room air. Labs: WBC 9.53, hemoglobin 8.6, hematocrit 28.1, platelets 1038, sodium 129, BUN 6, creatinine 0.36, AST 10, ALT 5. Urinalysis> 50 WBC. Negative MRSA screen. COVID testing negative. Blood cultures with MSSA in 2/4 bottles. Urine culture with a streptococcus gallolyticus Ct scan of the lumbar spine shows postsurgical thoraco lumbar spine with possible L4 and L5 vertebral fractures and subtle fracture of the left sacral ala. CT scan of the thoracic spine shows a T8 vertebral endplate wedge compression/fracture of unknown age. There is no significant abnormalities of the cervical spine. R Tib-fib x-ray shows a mildly displaced intra-articular fracture of the lateral corner of the right proximal tibia. Subtle nondisplaced cortical fracture laterally of the lateral malleolus. R Ankle x-ray shows no evidence of acute fracture , however overlying cast is limiting bony details. R Knee x-ray with no evidence of acute fracture. Visible distal femur diaphysis shows instrumentation from earlier surgery without periprosthetic lucencies seen to suggest loosening or infection. CT chest shows moderate volume bilateral pleural effusions with overlying consolidations and corresponding interstitial infiltrates right greater than left. Nondisplaced old fracture of the right third rib. A T8 vertebral chronic compression fracture. CT of the face shows a right nasal bone fracture. Head CT with no evidence of acute abnormality. CT abdomen pelvis shows a moderately large sized hiatal hernia. Possible mucosal thickening of fluid/gas filled normal caliber small bowel loops/enteritis. Gas/stool-filled mild distended large bowel loops. Irregular lobulations/abdominal wall thickening of a moderately distended rectum suspicious for malignancy. She has been evaluated by orthopedics, spine surgery, heme-onc, and GI . Her RLE was dressed and casted. No surgical intervention planned to LE or spine. She may undergo a flex sig later in the week. She is receiving IV vancomycin. She has a history of PCN and cephalexin allergy. ID consulted for MSSA bacteremia. Microbiology: Urine culture 03/06 > 100 K Streptococcus gallolyticus Blood culture 03/07 03/12 bottles positive for MSSA and / GPC in clusters not yet ided Blood culture 03/09 NGTD Antibiotics Meropenem 03/06 - 03/08 Levaquin 03/06 Vancomycin 03/07ongoing #MSSA bacteremia #Streptococcus gallolyticus ?UTI # Multiple fractures acute and chronic -lateral malleolus ,tibial, l4, l5 fracture, ? sacral ala fracture, T8 compression wedge fracture ,R Nasal fracture #B/L pleural effusion with associated opacities #Irregular lobulations/wall thickening of distended rectum: r/o malignancy - Strep gallolyticus ( bovis)in urine - assed with colon malignancy when in blood culture #Possible T10-T11 discitis with assed osteomyelitis and loosening of T 11 pedicle screw ( infectious vs non infectious) with ? epidural abscess of phlegmon #Spinal hardware in place # Baclofen pump #R femur hardware/instrumentation # Thrombocytosis # Cephalexin allergy : anaphylaxis # PCN Allergy : nausea Per chart - pt states her lips swell however Discussion: The source of the MSSA bacteremia is unknown, could be 2/2 spinal infection. She has multiple prosthetics/instrumentation: Spinal hardware, right femur hardware, baclofen pump. Exam significant for tenderness to palpation of BL flank and lower spine. She complains of back pain and right lower extremity pain. Pain may be secondary to chronic versus new fractures or developing infection. Right lower extremity is in a cast and I am unable to fully evaluate. Although she fell, there is no khadar cellulitis on the skin or open wounds that are apparent. She has BL pleural effusions with opacities, so Pneumonia is possible. Additionally, a rectal abnormality is seen on imagin g--> malignancy needs to be ruled out especially in the setting of multiple fractures. I would not expect MSSA in the GI tract so it is less likely to be the source for her bacteremia. Urine culture growing Streptococcus Gallolyticus. Unclear if symptomatic given her expressive aphasia. It is noted that STREP gallolyticus ( strep bovis ) especially if in blood culture is associated with Colon malignancy. No strep gallolyticus growth in BCx to date. TTE shows no significant valvular pathology. No valvular vegetation. 03/10/24 -MRI lumbar and thoracic spine reviewed lucency noted adjacent to the T11 pedicle screws, Increased fluid signal within T10-T11 disc space with abnormal marrow signal within the T10 and T11 vertebral bodies with associated endplate erosive changes which are new since CT of November 22, 2023. C/f T10-T11 discitis with associated osteomyelitis and loosening of the T11 pedicle screws. Possible small developing epidural abscess or phlegmon -Repeat BC NGTD - Pulmonary does not rec thoracentesis -I recommended IR for thoracic spine bone biopsy: send for aerobic, anaerobic, fungal and Afb cultures. ALSO send for histopathology, r/o malignancy 03/11/24 No capability at [facility] currently for bone biopsy at IR. No bed available at [facility]. She remains HDS. 03/14/24 pending transfer for biopsy, awaiting ortho spine followup on MRI findings 03/15/24-transfer for bone bx declined as accepting provide felt she as no longer bacteremic , it was not needed. Pending ortho spine input on MRI findings:loosening of the pedicle screws and ? abscess. Recommendations Continue IV vancomycin per pharm protocol which will cover MSSA in BC and Strep in urine ( Pcn, ceph allergy; anaphylaxis)--> if no lung involvement ( less likely )--> will change to Daptomycin Follow up BC 03/09 to ensure clearance -Follow up flex sig chris in setting of CT imaging, Step bovis in ucx and multiple fractures--> r/o malignancy -Follow up ortho spine input vs Neurosurgery input regarding intervention given loosening of hardware on MRI and ? early epidural abscess Discussed with team ID will continue to follow. Anticipate 6 weeks of IV abx from IR followed by suppression in setting of retained hardware Alondra Clark MD, MPH Infectious Disease ID Connect [facility], ID Division Call [phone] with questions. Admission and Anticipated Discharge Date Admission Date: March 07, 2024 Subjective This patient recommendation is based on a telemedicine consult request which was completed asynchronously through chart review and information provided by the primary physician. The patient was not seen or examined today. The evaluation is consultative in nature and all patient care and treatment decisions can either be accepted or rejected by the patient's primary hospital-based treating physician using their own independent medical judgment for their patient. Time Spent Reviewing Chart: 31+ minutes Repeat BC NGTD Transfer for bone biopsy denied by OSH Results & Data Vital Signs (Past 12 Hours) Vital Signs Temp Pulse Resp BP Pulse Ox O2 Del Method 03/15/24 15:34 37.0 C 72 18 150/81 H 92 Room Air 03/15/24 07:36 37.2 C 64 18 127/72 98 Room Air Laboratory Results Laboratory Results - last 48 hr 03/14/24 03/15/24 08:47 06:07 WBC 9.39 7.94 RBC 3.81 L 3.35 L Hgb 9.1 L 7.9 L Hct 30.5 L 25.8 L MCV 80.1 77.0 L MCH 23.9 L 23.6 L MCHC 29.8 L 30.6 L RDW Std Deviation 50.7 H 48.2 H RDW Coeff of Tera 17.7 H 17.4 H Plt Count 779 H 714 H MPV 9.9 9.1 L Sodium 137 134 L Potassium 3.1 L 3.0 L Chloride 98 98 Carbon Dioxide 30 28 Anion Gap 9 8 BUN 5 L 6 Creatinine 0.45 L 0.39 L Est Cr Clr Drug Dosing 85.9 99.2 eGFR 104.72 108.40 BUN/Creatinine Ratio 11.1 15.4 Glucose 117 H 95 Calcium 9.1 8.4 L Magnesium 1.6 L Random Vancomycin 14.3 Diagnostic Findings Microbiology 03/09/24 07:24 Blood Aerobic Blood Culture - Final No growth in Aerobic bottle after 5 days. 03/09/24 07:24 Blood Anaerobic Blood Culture - Final No growth in Anaerobic bottle after 5 days. 03/09/24 07:36 Blood Aerobic Blood Culture - Final No growth in Aerobic bottle after 5 days. 03/09/24 07:36 Blood Anaerobic Blood Culture - Final No growth in Anaerobic bottle after 5 days. 03/07/24 00:09 Blood Aerobic Blood Culture - Final Staphylococcus aureus 03/07/24 00:09 Blood Anaerobic Blood Culture - Final Staphylococcus aureus 03/07/24 00:23 Blood Aerobic Blood Culture - Final No growth in Aerobic bottle after 5 days. 03/07/24 00:23 Blood Anaerobic Blood Culture - Final 03/06/24 21:29 Urine,Straight Cath Urine Culture - Final Streptococcus gallalyticus Medications Administered Home Medications Medication Instructions Recorded Confirmed Last Taken baclofen 10 mg tablet 10 mg PO DAILY PRN spasms #90 tabs 12/01/22 03/07/24 Unknown celecoxib 200 mg capsule 200 mg PO QAM #90 caps 03/20/23 03/07/24 11/05/23 clopidogrel 75 mg tablet 75 mg PO HS #90 tabs 03/20/23 03/07/24 11/05/23 atorvastatin 10 mg tablet 10 mg PO 3XWK 09/28/23 03/07/24 11/04/23 duloxetine 30 mg capsule,delayed 30 mg PO DAILY #30 caps 11/12/23 03/07/24 Unknown release (Cymbalta) cholecalciferol (vitamin D3) 25 25 mcg PO DAILY 02/18/24 03/07/24 Unknown mcg (1,000 unit) capsule docusate sodium 100 mg capsule 100 mg PO BID 02/18/24 03/07/24 Unknown enoxaparin 30 mg/0.3 mL 30 mg subcut BID 02/18/24 03/07/24 Unknown subcutaneous syringe (Lovenox) lidocaine 4 % topical patch 1 patch topical DAILY 02/18/24 03/07/24 Unknown (Aspercreme (lidocaine)) ondansetron HCl 4 mg tablet 4 mg PO Q4H PRN Nausea And Vomiting 02/18/24 03/07/24 Unknown sennosides 8.6 mg tablet (Senokot) 17.2 mg PO BID 02/18/24 03/07/24 Unknown Wheelchair (Manual) #1 ea 02/25/24 02/25/24 Unknown denosumab 60 mg/mL subcutaneous 60 mg subcut UD 03/07/24 03/07/24 Unknown syringe (Prolia) morphine concentrate 100 mg/5 mL 10 mg PO Q1H PRN SOB/Pain 03/07/24 03/07/24 Unknown (20 mg/mL) oral solution sodium chloride 1 gram tablet 2,000 mg PO BID 03/07/24 03/07/24 Unknown tramadol 50 mg tablet 50 mg PO Q8H PRN Severe Pain 03/07/24 03/07/24 Unknown (Scale Score 7-10) Active Medications Generic Name Dose Route Start Last Admin Trade Name Freq PRN Reason Stop Dose Admin Acetaminophen 650 mg 03/07/24 03:09 03/10/24 03:50 Acetaminophen 325 Mg Tab PO 04/06/24 03:08 650 mg Q4H PRN Administration Pain or Fever Atorvastatin Calcium 10 mg 03/07/24 09:00 03/14/24 07:37 Atorvastatin 10 Mg Tab PO 04/06/24 08:59 10 mg [id number] FREDO Administration Baclofen 10 mg 03/07/24 03:09 03/12/24 10:14 Baclofen 10 Mg Tab PO 04/06/24 03:08 10 mg DAILY PRN Administration spasms Cyanocobalamin 100 mcg 03/08/24 09:00 03/15/24 07:52 Cyanocobalamin (B-12) 100 Mcg Tablet PO 04/07/24 08:59 100 mcg QAM FREDO Administration Docusate Sodium 100 mg 03/07/24 09:00 03/15/24 07:51 Docusate Sodium 100 Mg Cap PO 04/06/24 08:59 Not Given BID FREDO Duloxetine HCl 30 mg 03/07/24 09:00 03/15/24 07:52 Duloxetine Hcl 30 Mg Cap PO 04/06/24 08:59 30 mg DAILY FREDO Administration Enoxaparin Sodium 40 mg 03/13/24 09:00 03/15/24 07:47 Enoxaparin Inj 40 Mg/0.4 Ml Syr SQ 04/12/24 08:59 40 mg QAM FREDO Administration Ferrous Sulfate 325 mg 03/09/24 09:00 03/15/24 07:52 Ferrous Sulfate 325 Mg Tab PO 04/08/24 08:59 325 mg QAM FREDO Administration Furosemide 20 mg 03/09/24 15:30 03/15/24 07:49 Furosemide Inj 20 Mg/2 Ml Vial IV 04/08/24 15:29 20 mg QAM FREDO Administration Vancomycin HCl 1,000 mg in 270 mls @ 200 mls/hr 03/13/24 18:00 03/15/24 07:41 Vancomycin Hcl IV 03/27/24 17:59 Infused Q12H FREDO Infusion Lidocaine 1 patch 03/07/24 09:00 03/15/24 08:40 Lidocaine 5% 1 Patch TD 04/06/24 08:59 1 patch QAM FREDO Administration Potassium Chloride 10 meq 03/07/24 09:00 03/15/24 07:51 Potassium Chloride 10 Meq Tabcr PO 04/06/24 08:59 10 meq DAILY FREDO Administration Sennosides 17.2 mg 03/07/24 09:00 03/15/24 07:51 Senna 8.6 Mg Tab PO 04/06/24 08:59 Not Given BID FREDO Sodium Chloride 2 gm 03/07/24 09:00 03/15/24 07:53 Sodium Chloride 1 Gm Tablet PO 04/06/24 08:59 2 gm BID FREDO Administration Tramadol HCl 50 mg 03/09/24 21:12 03/12/24 10:14 Tramadol Hcl 50 Mg Tablet PO 04/08/24 21:11 50 mg Q6H PRN Administration Pain Vitamin D 25 mcg 03/07/24 09:00 03/15/24 07:52 Cholecalciferol 25 Mcg (1000 Units) Tab PO 04/06/24 08:59 25 mcg DAILY FREDO Administration (7) Pneumonia Laterality: unspecified laterality Lung location: unspecified part of lung Pneumonia type: due to unspecified organism Qualified Code(s): J18.9 - Pneumonia, unspecified organism
--- NOTE | 2024-03-15 16:37 | Hospitalist Progress Note ---
Date of Service March 15, 2024 Assessment & Plan (1) Bacteremia due to Staphylococcus: (2) Parapneumonic effusion: (3) Acute UTI: (4) Lateral malleolar fracture: (5) Fracture of proximal end of tibia: (6) Thrombocytosis: (7) Frequent falls: Plan The patient is a 68-year-old female with a past medical history including traumatic brain injury with delayed recovery, fractured scapula, multiple fractures of right sided ribs, frequent falls, generalized weakness, malnutrition, seizure history, hyponatremia, aphasia due to disease, executive function deficit, lumbar postlaminectomy syndrome and urinary incontinence. She is referred to the emergency department after being found between the toilet and wall facility for an unknown length of time after an unwitnessed fall. Staff became concerned because the patient had a simin on the right side of her face, and that she seemed more confused than her baseline. #MSSA Bacteremia -unknown source Continue vancomycin IV. Meropenem d/c 03/08 Blood culture: MSSA. source unknown - suspecting back Repeat blood cultures 03/09: no growth 48 hours TTE: without vegetations MRI spine: changes at T10/T11 associate with hardware, concern for osteomyelitis. Possible Small developing abscess or phlegmon. Pain pump functioning properly post MRI. Infectious disease consulted - continue IV vancomycin. Consider thoracentesis. May need JOHN. -bone bx - discussed with RAMOS ASHLEY we do NOT have capabilities to do this here, consider surgery. Attempted to transfer patient to [facility] 03/11 but denied due to their bed capacity. Attempted again 03/13 and no bed availability. Discussed w/ [facility] [facility] 03/14 and they declined transfer to their facility given she has negative BC now and they did not feel she required a bone bx. Discussed w/ ID provider 03/15 - consult ortho-spine regarding the loosening of the pedicle screws at T11. #Parapneumonic effusions bilaterally Chest CT 03/06: moderate volume b/l new pleural effusions w/ overlying consolidation/atelectasis & corresponding interstitial infiltrates. Pulmonary consulted for possible thoracentesis - continue diuretics, would recommend against thoracentesis. etiology HEpEF vs hypoalbuminemia Patient has been stable on room air for duration of stay - recheck CXR shows stable effusion, but pt continues to be net negative, will continue diuresis AM BMP #Urinary tract infection- UC: strep gallalyticus Will be covered by vanco, but not source of bacteremia. Concerning in group with strep bovis for colon cancer. #Right proximal tibial and lateral malleolar fracture- Read as possibly acute by radiology overnight Ortho evaluated patient 03/07 - no fracture identified. Likely right knee contusion and right ankle sprain. Immobilizer from ED removed - cast padding and VICKIE wrap applied for comfort. PT/OT - recommend return to prior living arrangement, would not be possible if pt needs IV antibiotics #Multiple vertebral fractures, with unclear timeframe- Patient has had significant trauma admission at [facility] in [place] in December this year. Prior back surgeries with Dr. Mesa ([facility]) Fractures at T8, L4 and L5 have been referred to but, appears to be more chronic than acute Consult orthopedic spine - recommend mobilization, no brace or surgery. Presently on a baclofen pump, Which has been recently refilled by pain management service, and reportedly is filled until appointment 03/16 #Thrombocytosis/progressive anemia- Platelets have been 298 at baseline, but on admission were 1038 - starting to down trend (714 today) Hemoglobin baseline has been 12-13, but 8.6 on admission - decreased to 7.9 Iron panel: transferrin sat 7%, iron 11, TIBC 160 Vitamin B12: 154, started on PO supplementation, Patient declined B12 injection. 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 No concerns myeloproliferative neoplasm. - continue to treat iron deficiency. S/p Venofer x2 - continue on PO supplementation - JAK2 mutation testing pending AM CBC #Abnormal CT finding CTAP 03/06: Possible enteritis, possible large bowel loops and question of possible malignancy with anasarca GI consulted - could perform flex sigmoidoscopy later in inpatient stay if more stable, otherwise can be done outpatient. Discussed w/ GI 03/14 - defer flex sigmoidoscopy to outpatient. Hgb has been stable, no signs of bleeding. #Hypokalemia- Patient takes 10meq daily K 3.0 - continue to replete as necessary. #Hypomagnesemia- Magnesium 1.6 s/p IV replacement, continue to replete as necessary. 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 Able to speak some, reliable answer yes or no questions. Able to understand/comprehend what you are saying. Communication Board for patient Extensively discussed patient's care w/ Arben RAMAN on 03/14. POA agreeable to palliative care consultation. Discussed w/ palliative care provider 03/15 - meeting to be set up with POA and patient to discuss goals of care. #Long-term disposition, patient has been seen by palliative care (wendy) in the outpatient setting PT/OT - recommend return to [facility] but unable to do so if on IV antibiotics Dispo: continued inpatient stay DVT proh: Lovenox - may have to hold if hgb continues to downtrend. Admission and Anticipated Discharge Date Admission Date: March 07, 2024 Subjective Patient seen and examined this morning. Patient answered no to being in pain. Physical Exam Constitutional: WD/WN, vitals as above Eyes: PERRL, conjunctivae normal, anicteric sclerae Respiratory: breathing unlabored Cardiovascular: well perfused Results & Data Results & Data Vital Signs (Past 12 Hours) Vital Signs Temp Pulse Resp BP Pulse Ox O2 Del Method 03/15/24 15:34 37.0 C 72 18 150/81 H 92 Room Air 03/15/24 07:36 37.2 C 64 18 127/72 98 Room Air PG Care Time/CCT Total # of Minutes Spent Total Time Spent with Patient: Total time spent is greater than 50% in coordination of care (as documented) at patient's floor/unit and/or counseling patient: Coding Level of Care Code 04374 SUB INP/OBS CARE 3/50MIN Diagnoses Bacteremia due to Staphylococcus R78.81; B95.8 Parapneumonic effusion J18.9; J91.8 Acute UTI N39.0 Lateral malleolar fracture S82.61XA Encounter type: initial encounter Fracture alignment: displaced Fracture type: closed Laterality: right Fracture of proximal end of tibia S82.101A Encounter type: initial encounter Fracture morphology: unspecified fracture morphology Fracture type: closed Laterality: right Thrombocytosis D75.839 Frequent falls R29.6 (4) Lateral malleolar fracture Encounter type: initial encounter Fracture alignment: displaced Fracture type: closed Laterality: right Qualified Code(s): S82.61XA - Displaced fracture of lateral malleolus of right fibula, initial encounter for closed fracture (5) Fracture of proximal end of tibia Encounter type: initial encounter Fracture morphology: unspecified fracture morphology Fracture type: closed Laterality: right Qualified Code(s): S82.101A - Unspecified fracture of upper end of right tibia, initial encounter for closed fracture
[2024-03-16 09:07] LABS: Magnesium 1.9 mg/dl (1.7-2.4); Potassium 3.3 mmol/L (3.5-5.1)
[2024-03-16 09:12] LABS: BUN Creatinine Ratio 13.3 (10-20); Creatinine Clr Calc Pharmacy 85.9 ml/min
[2024-03-16 09:47] LABS: Hematocrit (blood only) 32.3 % (37.0-47.0); Hemoglobin 9.7 g/dl (12.0-16.0); Mean Corpuscular Hemoglobin 23.6 pg (25.0-34.0); Mean Corpuscular Volume 78.6 fL (80.0-100.0); Mean Platelet Volume 9.5 fL (9.4-12.4); Platelet Count 779 K/uL (130-400); Red Blood Count 4.11 M/uL (4.20-5.40); White Blood Count 9.04 K/ul (4.8-10.8)
--- NOTE | 2024-03-16 13:05 | Orthopedic Consultation ---
Date of Service March 16, 2024 Assessment & Plan (1) Lumbar postlaminectomy syndrome: (2) History of lumbar fusion: History of Present Illness Reason for Consultation: Lucency at spinal hardware T11, possible infection. Requesting Physician: . Attending Physician: Isac Estrada 68-year-old female with a past medical history including traumatic brain injury with delayed recovery, fractured scapula, multiple fractures of right sided ribs, frequent falls, generalized weakness, malnutrition, seizure history, hyponatremia, aphasia due to disease, executive function deficit, lumbar postlaminectomy syndrome and urinary incontinence. She is referred to the emergency department after being found between the toilet and wall facility for an unknown length of time after an unwitnessed fall. Patient reports no tenderness in TL spine region, but varies in answer. Hemiplegic on right, partially cooperative for exam but mostly not responding to direct questioning, only yes or no. Has at left ankle plantar and dorsiflexion at grade 4-5/5. MRI OF THE THORACIC SPINE WITH AND WITHOUT CONTRAST 03/10/24 CLINICAL HISTORY: bacteremia unknown source, eval hardware/pump infection COMPARISON: Thoracic spine CT March 06, 2024. Chest CT November 22, 2023. Thoracic spine radiographs June 26, 2018. TECHNIQUE: Utilizing a 1.5 Pamela magnet and dedicated coil, multiplanar, multiecho imaging of the thoracic spine was performed before and after the intravenous administration of 5 cc. FINDINGS: This exam is moderately compromised given difficulty positioning and artifact from the spinal hardware. There are postoperative findings consistent with T11-S1 decompression and fusion. Bilateral pleural effusions are better de picted on prior chest CT. There are associated lower lobe airspace opacities. Please note that the lumbar spine MRI will be reported separately. Lucency adjacent to the bilateral T11 pedicle screws is depicted on spine CT March 06, 2021. The tip of the right screw slightly extends into the disc space. There is increased fluid signal within the T10-T11 disc space. There is paravertebral edema and enhancement. There is increased T2 signal and diminished T1 signal within the T10 and T11 vertebral bodies with erosion of the inferior endplate of T10 and superior endplate of T11. This erosion is new since CT of November 22, 2023. There is an associated small T2 hyperintense focus within the anterior epidural space that measures 0.9 x 0.8 x 0.2 cm. This enhances. No additional epidural abnormalities are identified. Thoracic cord signal suboptimally assessed on this exam but likely normal. This results in mild central canal narrowing. There is no severe stenosis within the thoracic spine. Several old mild thoracic spine compression fractures are present. No additional sites of inflammation are identified within the thoracic spine. IMPRESSION: 1. Status post T11-S1 decompression and fusion. Exam compromised given difficulty positioning and artifact from the surgical hardware. Please note that the lumbar spine MRI will be reported separately. 2. Lucency adjacent to the T11 pedicle screws, as shown on CT. Increased fluid signal within T10-T11 disc space with abnormal marrow signal within the T10 and T11 vertebral bodies with associated endplate erosive changes which are new since CT of November 22, 2023. Associated paravertebral edema and enhancement. Given the clinical history, the findings are suspicious for T10-T11 discitis with associated osteomyelitis and loosening of the T11 pedicle screws. Less likely, these findings could be aseptic and related to loosening/developing pseudarthrosis. An infectious process is the diagnosis of exclusion. Small associated abnormality within the anterior epidural space results in mild central canal stenosis. This may reflect a small developing epidural abscess or phlegmon. No severe central canal stenosis within the thoracic spine. 3. Bilateral pleural effusions with associated lower lobe airspace opacities, better depicted on prior CT. 4. Several old mild thoracic spine compression fractures. MRI and CT scan images since admission of lumbar and thoracic spine reviewed, my separate interpretation, reveals instrumentation from H31-owofma fixation, lucency around T11 screws, MRI indicating [id number] with possible vertebral involvement, no epidural stenosis formation, developement of degeneration at that level with some kyphosis. Pseudarthrosis at T11-12 for posterolateral fusion. Impression: Bacteremia unknown source, lucency around cephalad end of [id number] construct at T11 pedicle screws, possible discitis T10-11. Plan: Would recommend continued antibiotic treatment, brace when mobilized. IR aspiration at disc space may reveal source of infection but doubtful with antibiotic started. Follow up with spine service involved with fusion procedure. Allergies Allergy/AdvReac Type Severity Reaction Status Date / Time cephalexin Allergy Severe Anaphylaxis Verified 02/25/24 10:29 Penicillins AdvReac Mild nausea Verified 02/25/24 10:29 Home Medications Medication Instructions Recorded Confirmed Type baclofen 10 mg tablet 10 mg PO DAILY PRN spasms #90 tabs 12/01/22 03/07/24 Rx celecoxib 200 mg capsule 200 mg PO QAM #90 caps 03/20/23 03/07/24 Rx clopidogrel 75 mg tablet 75 mg PO HS #90 tabs 03/20/23 03/07/24 Rx atorvastatin 10 mg tablet 10 mg PO 3XWK 09/28/23 03/07/24 History duloxetine 30 mg capsule,delayed 30 mg PO DAILY #30 caps 11/12/23 03/07/24 Rx release (Cymbalta) cholecalciferol (vitamin D3) 25 25 mcg PO DAILY 02/18/24 03/07/24 History mcg (1,000 unit) capsule docusate sodium 100 mg capsule 100 mg PO BID 02/18/24 03/07/24 History enoxaparin 30 mg/0.3 mL 30 mg subcut BID 02/18/24 03/07/24 History subcutaneous syringe (Lovenox) lidocaine 4 % topical patch 1 patch topical DAILY 02/18/24 03/07/24 History (Aspercreme (lidocaine)) ondansetron HCl 4 mg tablet 4 mg PO Q4H PRN Nausea And Vomiting 02/18/24 03/07/24 History sennosides 8.6 mg tablet (Senokot) 17.2 mg PO BID 02/18/24 03/07/24 History Wheelchair (Manual) #1 ea 02/25/24 02/25/24 Rx denosumab 60 mg/mL subcutaneous 60 mg subcut UD 03/07/24 03/07/24 History syringe (Prolia) morphine concentrate 100 mg/5 mL 10 mg PO Q1H PRN SOB/Pain 03/07/24 03/07/24 History (20 mg/mL) oral solution sodium chloride 1 gram tablet 2,000 mg PO BID 03/07/24 03/07/24 History tramadol 50 mg tablet 50 mg PO Q8H PRN Severe Pain 03/07/24 03/07/24 History (Scale Score 7-10) Past Med/Surg History Problem List (Updated 03/15/24 @ 10:00 by NAM Palmer) Palliative care by specialist Counseling regarding advanced directives and goals of care Abnormal chest CT Pleural effusion Bacteremia due to Staphylococcus Fracture, thoracic vertebra, compression Abnormality of rectum Anemia Right ankle sprain Contusion of right knee Closed fracture of nasal bone (Acute ~03/06/24) Lateral malleolar fracture (Acute ~03/06/24) l Closed fracture of proximal end of tibia (Acute ~03/06/24) Fracture of proximal end of right tibia from a fall Parapneumonic effusion Closed fracture nasal bone (Acute 03/06/24) Right nasal bone fracture from a fall Lateral malleolar fracture (Acute 03/06/24) subtle nondisplaced cortical fracture laterally of the right lateral malle olus from a fall. Fracture of proximal end of tibia (Acute 03/06/24) A mildly displaced intra-articular fracture of the lateral corner of the right proximal tibia from a fall Thrombocytosis (Acute) Pneumonia (Acute) Acute UTI (Acute) Fall (Acute) Traumatic brain injury with delayed recovery Fracture of scapula (Acute ~11/22/23) Multiple fractures of ribs, right side, initial encounter for closed fracture (Acute ~11/22/23) nondisplaced lateral second rib fracture and mildly displaced fourth through sixth rib fractures. Focal bandlike sclerosis is suspicious for a subtle nondisplaced fracture involving the right seventh rib. Similar posterior fractures on the right at the fourth through seventh right ribs. No displaced left rib fracture Multiple fractures of ribs of right side (Acute 11/22/23) In addition to the mildly displaced lateral right third and sixth rib fractures noted previously, there is now nondisplaced lateral second rib fracture and mildly displaced fourth through sixth rib fractures. Focal bandlike sclerosis is suspicious for a subtle nondisplaced fracture involving the right seventh rib. Similar posterior fractures on the right at the fourth through seventh right ribs. No displaced left rib fracture from a fall Closed fracture of one rib (Acute ~11/06/23) acute fracture of the right sixth rib laterally Frequent falls Transient alteration of awareness Weakness Neurogenic bladder Incontinence Multiple falls (Acute) Weakness (Acute) Malnutrition compromising bodily function Seizure Superficial thrombophlebitis of arm Hyponatremia Lumbar pain Weight loss Aphasia due to disease due to b12 deficiency Hypokalemia Fall (on) (from) other stairs and steps, initial encounter Osteoarthritis Encounter for routine gynecological examination Executive function deficit Sacroiliac inflammation Carpal tunnel syndrome (Chronic) Neck pain (Acute) Lumbar postlaminectomy syndrome (Chronic) History of lumbar fusion (Chronic) X 2 Change in bowel habits Medical History Headache, post-traumatic, acute Vascular dementia B12 deficiency expressive aphasia Aphasia, post-stroke Hemiparesis affecting right side as late effect of cerebrovascular accident Aphasia as late effect of cerebrovascular accident History of cerebrovascular accident from left carotid artery occlusion involving left middle cerebral artery territory Hemiplegia Right side > wears AFO brace on RLE, no control of right arm History of CVA (cerebrovascular accident) 1998 large left MCA territory in setting of occluded left carotid potentially related to oral contraception at that time > chronic spastic right hemiparesis, flaccid upper limb and mild to moderate expressive aphasia > on plavix > follows with [facility] Fall External constriction of left ring finger, initial encounter Sciatica Osteoporosis with fracture Hyperplastic colon polyp Ring or other jewelry causing external constriction, initial encounter Fall Closed femur fracture Memory loss Left carotid artery occlusion Vasovagal syncope if not laying flat during blood draws Encounter for pre-operative examination Memory problem History of depression 1998 per pt Hypertension controlled, stable per pt Chronic constipation with overflow 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 (CVA) 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 (CVA) CVA (cerebral vascular accident) Laceration of eyebrow, right Head trauma Osteoporosis Stroke Surgical History Presence of intrathecal pump Family history of reaction to anesthesia Mother: slow to wake History of gynecologic surgery Labial "removal" History of back surgery Lumbar fusion x2 History of colonoscopy History of tooth extraction History of tonsillectomy Family History Father Cancer Family history of esophageal cancer Other No pertinent family history Denies family history of Ovarian cancer Prostate cancer Diabetes Myocardial infarction Breast cancer Colorectal cancer Hypertension Social History Smoking Status: Never smoker Tobacco Type: Declines Age Started Using Tobacco: 12; Age Quit Using Tobacco: 22; packs per day: 0.1; Second Hand Exposure: No; Do You Dip or Chew Tobacco: No; Hx Alcohol Use: No Hx Substance Use: No Preferred Language: Tajik Communication Ability: Impaired Communication Ability Comment: Expressive aphasia from previous CVA Visual Impairment: Limited 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 Physical Exam . Results & Data Results & Data Laboratory Results . Diagnostic Findings . PG Care Time/CCT Total # of Minutes Spent Total Time Spent with Patient: Total time spent is greater than 50% in coordination of care (as documented) at patient's floor/unit and/or counseling patient: Coding Level of Care Code 23087 IN/OBS CONSULT LVL 3,45M Diagnoses Lumbar postlaminectomy syndrome M96.1 History of lumbar fusion Z98.1
--- NOTE | 2024-03-16 14:59 | Palliative Care Consultation ---
Date of Consultation March 16, 2024 History of Present Illness Attending Physician: Isac Estrada Allergies Allergy/AdvReac Type Severity Reaction Status Date / Time cephalexin Allergy Severe Anaphylaxis Verified 02/25/24 10:29 Penicillins AdvReac Mild nausea Verified 02/25/24 10:29 Home Medications Medication Instructions Recorded Confirmed Type baclofen 10 mg tablet 10 mg PO DAILY PRN spasms #90 tabs 12/01/22 03/07/24 Rx celecoxib 200 mg capsule 200 mg PO QAM #90 caps 03/20/23 03/07/24 Rx clopidogrel 75 mg tablet 75 mg PO HS #90 tabs 03/20/23 03/07/24 Rx atorvastatin 10 mg tablet 10 mg PO 3XWK 09/28/23 03/07/24 History duloxetine 30 mg capsule,delayed 30 mg PO DAILY #30 caps 11/12/23 03/07/24 Rx release (Cymbalta) cholecalciferol (vitamin D3) 25 25 mcg PO DAILY 02/18/24 03/07/24 History mcg (1,000 unit) capsule docusate sodium 100 mg capsule 100 mg PO BID 02/18/24 03/07/24 History enoxaparin 30 mg/0.3 mL 30 mg subcut BID 02/18/24 03/07/24 History subcutaneous syringe (Lovenox) lidocaine 4 % topical patch 1 patch topical DAILY 02/18/24 03/07/24 History (Aspercreme (lidocaine)) ondansetron HCl 4 mg tablet 4 mg PO Q4H PRN Nausea And Vomiting 02/18/24 03/07/24 History sennosides 8.6 mg tablet (Senokot) 17.2 mg PO BID 02/18/24 03/07/24 History Wheelchair (Manual) #1 ea 02/25/24 02/25/24 Rx denosumab 60 mg/mL subcutaneous 60 mg subcut UD 03/07/24 03/07/24 History syringe (Prolia) morphine concentrate 100 mg/5 mL 10 mg PO Q1H PRN SOB/Pain 03/07/24 03/07/24 History (20 mg/mL) oral solution sodium chloride 1 gram tablet 2,000 mg PO BID 03/07/24 03/07/24 History tramadol 50 mg tablet 50 mg PO Q8H PRN Severe Pain 03/07/24 03/07/24 History (Scale Score 7-10) Patient History Medical History Headache, post-traumatic, acute Vascular dementia B12 deficiency expressive aphasia Aphasia, post-stroke Hemiparesis affecting right side as late effect of cerebrovascular accident Aphasia as late effect of cerebrovascular accident History of cerebrovascular accident from left carotid artery occlusion involving left middle cerebral artery territory Hemiplegia Right side > wears AFO brace on RLE, no control of right arm History of CVA (cerebrovascular accident) 1998 large left MCA territory in setting of occluded left carotid potentially related to oral contraception at that time > chronic spastic right hemiparesis, flaccid upper limb and mild to moderate expressive aphasia > on plavix > follows with [facility] Fall External constriction of left ring finger, initial encounter Sciatica Osteoporosis with fracture Hyperplastic colon polyp Ring or other jewelry causing external constriction, initial encounter Fall Closed femur fracture Memory loss Left carotid artery occlusion Vasovagal syncope if not laying flat during blood draws Encounter for pre-operative examination Memory problem History of depression 1998 per pt Hypertension controlled, stable per pt Chronic constipation with overflow 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 (CVA) 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 (CVA) CVA (cerebral vascular accident) Laceration of eyebrow, right Head trauma Osteoporosis Stroke Surgical History Presence of intrathecal pump Family history of reaction to anesthesia Mother: slow to wake History of gynecologic surgery Labial "removal" History of back surgery Lumbar fusion x2 History of colonoscopy History of tooth extraction History of tonsillectomy Family History Father Cancer Family history of esophageal cancer Other No pertinent family history Denies family history of Ovarian cancer Prostate cancer Diabetes Myocardial infarction Breast cancer Colorectal cancer Hypertension Social History Smoking Status: Never smoker Tobacco Type: Declines Age Started Using Tobacco: 12; Age Quit Using Tobacco: 22; packs per day: 0.1; Second Hand Exposure: No; Do You Dip or Chew Tobacco: No; Hx Alcohol Use: No Hx Substance Use: No Preferred Language: German Communication Ability: Impaired Communication Ability Comment: Expressive aphasia from previous CVA Visual Impairment: Limited 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 Beliefs That Will Affect Care: None marital status: Single Current Living Situation: [facility] Current Living Situation Comment: [place] current occupational status: retired How many Children do You have: 0 Feels Safe at Home: Yes Childhood Exposure to Second-Hand Smoke: Yes caffeine: Yes (coffee) Dental Care, Regularly: Yes Physical Activity Frequency: Daily Seatbelt Use: always Sunscreen Use: Yes Assistive Devices: Wheelchair Results & Data Vital Signs (Past 12 Hours) Vital Signs Temp Pulse Pulse Resp BP Pulse Ox O2 Del Method 03/16/24 12:20 36.9 C 93 H 18 144/84 H 97 Room Air 03/16/24 07:54 37 C 84 14 127/73 94 Room Air PG Care Time/CCT Total # of Minutes Spent Total Time Spent with Patient: Total time spent is greater than 50% in coordination of care (as documented) at patient's floor/unit and/or counseling patient: Coding
--- NOTE | 2024-03-16 16:25 | Infectious Disease Progress Nt ---
Date of Service March 16, 2024 Assessment & Plan (1) Fracture, thoracic vertebra, compression: (2) Abnormality of rectum: (3) Right ankle sprain: (4) Closed fracture of nasal bone: (5) Lateral malleolar fracture: (6) Thrombocytosis: (7) Pneumonia: (8) Bacteremia due to Staphylococcus: Plan This is a 68-year-old female with a past medical history of traumatic brain injury, fractured scapula, multiple fractures of the right rib, frequent falls, seizures, aphasia, executive function deficit, lumbar post laminectomy syndrome, urinary incontinence, CVA with residual R hemiparesis who presents from a longterm facility after she was found on the ground between the toilet and the wall of the facility for an unknown period of time. Patient was more confused from her baseline. Patient has expressive aphasia and cannot provide a history. History obtained from chart review. Apparently she was found to have redness and swelling of the right side of her face and right lower extremity. Patient does not remember falling. She is unable to tell me why she presented to the hospital. She tells me that she has back pain and R leg pain .. In the ED, temperature 37.3, pulse 109, RR 18, BP 120/86, O2 sats 94% on room air. Labs: WBC 9.53, hemoglobin 8.6, hematocrit 28.1, platelets 1038, sodium 129, BUN 6, creatinine 0.36, AST 10, ALT 5. Urinalysis> 50 WBC. Negative MRSA screen. COVID testing negative. Blood cultures with MSSA in 2/4 bottles. Urine culture with a streptococcus gallolyticus Ct scan of the lumbar spine shows postsurgical thoraco lumbar spine with possible L4 and L5 vertebral fractures and subtle fracture of the left sacral ala. CT scan of the thoracic spine shows a T8 vertebral endplate wedge compression/fracture of unknown age. There is no significant abnormalities of the cervical spine. R Tib-fib x-ray shows a mildly displaced intra-articular fracture of the lateral corner of the right proximal tibia. Subtle nondisplaced cortical fracture laterally of the lateral malleolus. R Ankle x-ray shows no evidence of acute fracture , however overlying cast is limiting bony details. R Knee x-ray with no evidence of acute fracture. Visible distal femur diaphysis shows instrumentation from earlier surgery without periprosthetic lucencies seen to suggest loosening or infection. CT chest shows moderate volume bilateral pleural effusions with overlying consolidations and corresponding interstitial infiltrates right greater than left. Nondisplaced old fracture of the right third rib. A T8 vertebral chronic compression fracture. CT of the face shows a right nasal bone fracture. Head CT with no evidence of acute abnormality. CT abdomen pelvis shows a moderately large sized hiatal hernia. Possible mucosal thickening of fluid/gas filled normal caliber small bowel loops/enteritis. Gas/stool-filled mild distended large bowel loops. Irregular lobulations/abdominal wall thickening of a moderately distended rectum suspicious for malignancy. She has been evaluated by orthopedics, spine surgery, heme-onc, and GI . Her RLE was dressed and casted. No surgical intervention planned to LE or spine. She may undergo a flex sig later in the week. She is receiving IV vancomycin. She has a history of PCN and cephalexin allergy. ID consulted for MSSA bacteremia. Microbiology: Urine culture 03/06 > 100 K Streptococcus gallolyticus Blood culture 03/07 03/12 bottles positive for MSSA and / GPC in clusters not yet ided Blood culture 03/09 NG Antibiotics Meropenem 03/06 - 03/08 Levaquin 03/06 Vancomycin 03/07ongoing #MSSA bacteremia #Streptococcus gallolyticus ?UTI # Multiple fractures acute and chronic -lateral malleolus ,tibial, l4, l5 fracture, ? sacral ala fracture, T8 compression wedge fracture ,R Nasal fracture #B/L pleural effusion with associated opacities #Irregular lobulations/wall thickening of distended rectum: r/o malignancy - Strep gallolyticus ( bovis)in urine - assed with colon malignancy when in blood culture #Possible T10-T11 discitis with assed osteomyelitis and loosening of T 11 pedicle screw ( infectious vs non infectious) with ? epidural abscess of phlegmon #Spinal hardware in place # Baclofen pump #R femur hardware/instrumentation # Thrombocytosis # Cephalexin allergy : anaphylaxis # PCN Allergy : nausea Per chart - pt states her lips swell however Discussion: The source of the MSSA bacteremia is unknown, could be 2/2 spinal infection. She has multiple prosthetics/instrumentation: Spinal hardware, right femur hardware, baclofen pump. Exam significant for tenderness to palpation of BL flank and lower spine. She complains of back pain and right lower extremity pain. Pain may be secondary to chronic versus new fractures or developing infection. Right lower extremity is in a cast and I am unable to fully evaluate. Although she fell, there is no khadar cellulitis on the skin or open wounds that are apparent. She has BL pleural effusions with opacities, so Pneumonia is possible. Additionally, a rectal abnormality is seen on imaging --> malignancy needs to be ruled out especially in the setting of multiple fractures. I would not expect MSSA in the GI tract so it is less likely to be the source for her bacteremia. Urine culture growing Streptococcus Gallolyticus. Unclear if symptomatic given her expressive aphasia. It is noted that STREP gallolyticus ( strep bovis ) especially if in blood culture is associated with Colon malignancy. No strep gallolyticus growth in BCx to date. TTE shows no significant valvular pathology. No valvular vegetation. 03/10/24 -MRI lumbar and thoracic spine reviewed lucency noted adjacent to the T11 pedicle screws, Increased fluid signal within T10-T11 disc space with abnormal marrow signal within the T10 and T11 vertebral bodies with associated endplate erosive changes which are new since CT of November 22, 2023. C/f T10-T11 discitis with associated osteomyelitis and loosening of the T11 pedicle screws. Possible small developing epidural abscess or phlegmon -Repeat BC NGTD - Pulmonary does not rec thoracentesis -I recommended IR for thoracic spine bone biopsy: send for aerobic, anaerobic, fungal and Afb cultures. ALSO send for histopathology, r/o malignancy 03/11/24 No capability at [facility] currently for bone biopsy at IR. No bed available at [facility]. She remains HDS. 03/14/24 pending transfer for biopsy, awaiting ortho spine followup on MRI findings 03/15/24-transfer for bone bx declined as accepting provide felt she as no longer bacteremic , it was not needed. Pending ortho spine input on MRI findings:loosening of the pedicle screws and ? abscess. 03/16 No intervention planned by ortho spine. Per discussion with team her spinal surgeon is aware of MRI spine findings and no plan for intervention . Recommendations Anticipate 6 weeks of IV abx followed by suppression in setting of retained hardware Will have to start from sterile BC as no interventions planned. If source bacteremia is spinal infection, it will be hard to clear in setting of retained hardware and ? abscess. She had MSSA in BC and strep gall in urine with PCN and Cephelaxin anaphylaxis. I doubt lung infection . Since plan for [employer] IV abx will swittch to Daptomycin 8 mg /kg Iv daily as it is less nephrotoxic than mcfp IV vanco and levels do not to be managed outpatient. May add Rifampin for synergy after d/w ID pharm -Follow up flex sig chris in setting of CT imaging, Step bovis in ucx and multiple fractures--> r/o malignancy - Ordered CPK for am . May nned to hold atorvastatin while on therapy Discussed with team ID will continue to follow. Alondra Clark MD, MPH Infectious Disease [facility], ID Division Call [phone] with questions. Admission and Anticipated Discharge Date Admission Date: March 07, 2024 Subjective This patient recommendation is based on a telemedicine consult request which was completed asynchronously through chart review and information provided by the primary physician. The patient was not seen or examined today. The evaluation is consultative in nature and all patient care and treatment decisions can either be accepted or rejected by the patient's primary hospital-based treating physician using their own independent medical judgment for their patient. Time Spent Reviewing Chart: 31+ minutes Repeat BC NG No plan for ortho intervention Results & Data Vital Signs (Past 12 Hours) Vital Signs Temp Pulse Pulse Resp BP Pulse Ox O2 Del Method 03/16/24 12:20 36.9 C 93 H 18 144/84 H 97 Room Air 03/16/24 07:54 37 C 84 14 127/73 94 Room Air Laboratory Results Short CBC 03/16/24 03/16/24 Range/Units 08:18 09:14 WBC Cancelled 9.04 Hgb Cancelled 9.7 L Hct Cancelled 32.3 L Plt Count Cancelled 779 H BMP 03/16/24 08:18 Sodium 134 L Potassium 3.3 L Chloride 99 Carbon Dioxide 25 BUN 6 Creatinine 0.45 L Glucose 88 Calcium 9.0 Diagnostic Findings Microbiology 03/09/24 07:24 Blood Aerobic Blood Culture - Final No growth in Aerobic bottle after 5 days. 03/09/24 07:24 Blood Anaerobic Blood Culture - Final No growth in Anaerobic bottle after 5 days. 03/09/24 07:36 Blood Aerobic Blood Culture - Final No growth in Aerobic bottle after 5 days. 03/09/24 07:36 Blood Anaerobic Blood Culture - Final No growth in Anaerobic bottle after 5 days. 03/07/24 00:09 Blood Aerobic Blood Culture - Final Staphylococcus aureus 03/07/24 00:09 Blood Anaerobic Blood Culture - Final Staphylococcus aureus 03/07/24 00:23 Blood Aerobic Blood Culture - Final No growth in Aerobic bottle after 5 days. 03/07/24 00:23 Blood Anaerobic Blood Culture - Final 03/06/24 21:29 Urine,Straight Cath Urine Culture - Final Streptococcus gallalyticus Medications Administered Home Medications Medication Instructions Recorded Confirmed Last Taken baclofen 10 mg tablet 10 mg PO DAILY PRN spasms #90 tabs 12/01/22 03/07/24 Unknown celecoxib 200 mg capsule 200 mg PO QAM #90 caps 03/20/23 03/07/24 11/05/23 clopidogrel 75 mg tablet 75 mg PO HS #90 tabs 03/20/23 03/07/24 11/05/23 atorvastatin 10 mg tablet 10 mg PO 3XWK 09/28/23 03/07/24 11/04/23 duloxetine 30 mg capsule,delayed 30 mg PO DAILY #30 caps 11/12/23 03/07/24 Unknown release (Cymbalta) cholecalciferol (vitamin D3) 25 25 mcg PO DAILY 02/18/24 03/07/24 Unknown mcg (1,000 unit) capsule docusate sodium 100 mg capsule 100 mg PO BID 02/18/24 03/07/24 Unknown enoxaparin 30 mg/0.3 mL 30 mg subcut BID 02/18/24 03/07/24 Unknown subcutaneous syringe (Lovenox) lidocaine 4 % topical patch 1 patch topical DAILY 02/18/24 03/07/24 Unknown (Aspercreme (lidocaine)) ondansetron HCl 4 mg tablet 4 mg PO Q4H PRN Nausea And Vomiting 02/18/24 03/07/24 Unknown sennosides 8.6 mg tablet (Senokot) 17.2 mg PO BID 02/18/24 03/07/24 Unknown Wheelchair (Manual) #1 ea 02/25/24 02/25/24 Unknown denosumab 60 mg/mL subcutaneous 60 mg subcut UD 03/07/24 03/07/24 Unknown syringe (Prolia) morphine concentrate 100 mg/5 mL 10 mg PO Q1H PRN SOB/Pain 03/07/24 03/07/24 Unknown (20 mg/mL) oral solution sodium chloride 1 gram tablet 2,000 mg PO BID 03/07/24 03/07/24 Unknown tramadol 50 mg tablet 50 mg PO Q8H PRN Severe Pain 03/07/24 03/07/24 Unknown (Scale Score 7-10) Active Medications Generic Name Dose Route Start Last Admin Trade Name Frealondra PRN Reason Stop Dose Admin Acetaminophen 650 mg 03/07/24 03:09 03/10/24 03:50 Acetaminophen 325 Mg Tab PO 04/06/24 03:08 650 mg Q4H PRN Administration Pain or Fever Atorvastatin Calcium 10 mg 03/07/24 09:00 03/16/24 09:31 Atorvastatin 10 Mg Tab PO 04/06/24 08:59 10 mg [id number] FREDO Administration Baclofen 10 mg 03/07/24 03:09 03/12/24 10:14 Baclofen 10 Mg Tab PO 04/06/24 03:08 10 mg DAILY PRN Administration spasms Cyanocobalamin 100 mcg 03/08/24 09:00 03/16/24 09:30 Cyanocobalamin (B-12) 100 Mcg Tablet PO 04/07/24 08:59 100 mcg QAM FREDO Administration Docusate Sodium 100 mg 03/07/24 09:00 03/16/24 09:31 Docusate Sodium 100 Mg Cap PO 04/06/24 08:59 100 mg BID FREDO Administration Duloxetine HCl 30 mg 03/07/24 09:00 03/16/24 09:31 Duloxetine Hcl 30 Mg Cap PO 04/06/24 08:59 30 mg DAILY FREDO Administration Enoxaparin Sodium 40 mg 03/13/24 09:00 03/16/24 09:28 Enoxaparin Inj 40 Mg/0.4 Ml Syr SQ 04/12/24 08:59 40 mg QAM FREDO Administration Ferrous Sulfate 325 mg 03/09/24 09:00 03/16/24 09:31 Ferrous Sulfate 325 Mg Tab PO 04/08/24 08:59 325 mg QAM FREDO Administration Furosemide 20 mg 03/09/24 15:30 03/16/24 12:03 Furosemide Inj 20 Mg/2 Ml Vial IV 04/08/24 15:29 20 mg QAM FREDO Administration Vancomycin HCl 1,000 mg in 270 mls @ 200 mls/hr 03/13/24 18:00 03/16/24 07:35 Vancomycin Hcl IV 03/27/24 17:59 Infused Q12H FREDO Infusion Lidocaine 1 patch 03/07/24 09:00 03/16/24 09:28 Lidocaine 5% 1 Patch TD 04/06/24 08:59 1 patch QAM FREDO Administration Potassium Chloride 10 meq 03/07/24 09:00 03/16/24 09:30 Potassium Chloride 10 Meq Tabcr PO 04/06/24 08:59 10 meq DAILY FREDO Administration Sennosides 17.2 mg 03/07/24 09:00 03/16/24 09:30 Senna 8.6 Mg Tab PO 04/06/24 08:59 17.2 mg BID FREDO Administration Sodium Chloride 2 gm 03/07/24 09:00 03/16/24 09:31 Sodium Chloride 1 Gm Tablet PO 04/06/24 08:59 2 gm BID FREDO Administration Tramadol HCl 50 mg 03/09/24 21:12 03/12/24 10:14 Tramadol Hcl 50 Mg Tablet PO 04/08/24 21:11 50 mg Q6H PRN Administration Pain Vitamin D 25 mcg 03/07/24 09:00 03/16/24 09:31 Cholecalciferol 25 Mcg (1000 Units) Tab PO 04/06/24 08:59 25 mcg DAILY FREDO Administration (7) Pneumonia Laterality: unspecified laterality Lung location: unspecified part of lung Pneumonia type: due to unspecified organism Qualified Code(s): J18.9 - Pneumonia, unspecified organism
--- NOTE | 2024-03-16 16:41 | Hospitalist Progress Note ---
Date of Service March 16, 2024 Assessment & Plan (1) Bacteremia due to Staphylococcus: (2) Parapneumonic effusion: (3) Acute UTI: (4) Lateral malleolar fracture: (5) Fracture of proximal end of tibia: (6) Thrombocytosis: (7) Frequent falls: Plan The patient is a 68-year-old female with a past medical history including traumatic brain injury with delayed recovery, fractured scapula, multiple fractures of right sided ribs, frequent falls, generalized weakness, malnutrition, seizure history, hyponatremia, aphasia due to disease, executive function deficit, lumbar postlaminectomy syndrome and urinary incontinence. She is referred to the emergency department after being found between the toilet and wall facility for an unknown length of time after an unwitnessed fall. Staff became concerned because the patient had a simin on the right side of her face, and that she seemed more confused than her baseline. #MSSA Bacteremia -unknown source Continue vancomycin IV. Meropenem d/c 03/08 Blood culture: MSSA. source unknown - suspecting back Repeat blood cultures 03/09: no growth 48 hours TTE: without vegetations MRI spine: changes at T10/T11 associate with hardware, concern for osteomyelitis. Possible Small developing abscess or phlegmon. Pain pump functioning properly post MRI. Infectious disease consulted - continue IV vancomycin. - will transition to daptomycin and rifampin on discharge. - [facility] denied the need for transfer on 03/14 stating that the treatment would not change following a bone bx given follow up BC were negative. Orthospine evaluated patient on 03/16 - recommending continuing IV abx and follow up with ortho spine surgeon at [facility]. #Parapneumonic effusions bilaterally Chest CT 03/06: moderate volume b/l new pleural effusions w/ overlying consolidation/atelectasis & corresponding interstitial infiltrates. Pulmonary consulted for possible thoracentesis - continue diuretics, would recommend against thoracentesis. etiology HEpEF vs hypoalbuminemia Patient has been stable on room air for duration of stay - recheck CXR this AM shows stable effusion, but pt continues to be net negative, will continue diuresis AM BMP #Urinary tract infection- UC: strep gallalyticus Will be covered by vanco, but not source of bacteremia. Concerning in group with strep bovis for colon cancer. #Right proximal tibial and lateral malleolar fracture- Read as possibly acute by radiology overnight Ortho evaluated patient 03/07 - no fracture identified. Likely right knee contusion and right ankle sprain. Immobilizer from ED removed - cast padding and VICKIE wrap applied for comfort. PT/OT - recommend return to prior living arrangement, would not be possible if pt needs IV antibiotics #Multiple vertebral fractures, with unclear timeframe- Patient has had significant trauma admission at [facility] in [place] in December this year. Prior back surgeries with Dr. Mesa ([facility]) Fractures at T8, L4 and L5 have been referred to but, appears to be more chronic than acute Consult orthopedic spine - recommend mobilization, no brace or surgery. Presently on a baclofen pump, Which has been recently refilled by pain management service, and reportedly is filled until appointment 03/16 #Thrombocytosis/progressive anemia- Platelets have been 298 at baseline, but on admission were 1038 - 779 on 03/16 Hemoglobin baseline has been 12-13, but 8.6 on admission - stable at 9.7 Iron panel: transferrin sat 7%, iron 11, TIBC 160 Vitamin B12: 154, started on PO supplementation, Patient declined B12 injection. 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 No concerns myeloproliferative neoplasm. - continue to treat iron deficiency. S/p Venofer x2 - continue on PO supplementation - JAK2 mutation testing pending AM CBC #Abnormal CT finding CTAP 03/06: Possible enteritis, possible large bowel loops and question of poss ible malignancy with anasarca GI consulted - deferred flex sigmoidoscopy outpatient. Hgb has been stable, no signs of bleeding. #Hypokalemia- K 3.3 Patient takes 10meq daily replaced as necessary #Hypomagnesemia- Magnesium 1.9 replete as necessary #Aphasia Chronic after stroke. Able to speak some, reliable answer yes or no questions. Able to understand/comprehend what you are saying. Communication Board for patient #Long-term disposition, patient has been seen by palliative care (wendy) in the outpatient setting Palliative care discussion regarding goals of care took place on 03/16. - discussed w/ palliative care team following discussion that patient will continue treatment for her osteomyelitis. Dispo: medical DVT proh: lovenox Admission and Anticipated Discharge Date Admission Date: March 07, 2024 Subjective Patient seen and examined this morning. Patient answered no to being in pain. Physical Exam Constitutional: WD/WN, vitals as above Eyes: PERRL, conjunctivae normal, anicteric sclerae Respiratory: breathing unlabored Cardiovascular: well perfused Results & Data Results & Data Vital Signs (Past 12 Hours) Vital Signs Temp Pulse Pulse Resp BP Pulse Ox O2 Del Method 03/16/24 12:20 36.9 C 93 H 18 144/84 H 97 Room Air 03/16/24 07:54 37 C 84 14 127/73 94 Room Air PG Care Time/CCT Total # of Minutes Spent Total Time Spent with Patient: Total time spent is greater than 50% in coordination of care (as documented) at patient's floor/unit and/or counseling patient: Coding Level of Care Code 55413 SUB INP/OBS CARE 350MIN Diagnoses Bacteremia due to Staphylococcus R78.81; B95.8 Parapneumonic effusion J18.9; J91.8 Acute UTI N39.0 Lateral malleolar fracture S82.61XA Encounter type: initial encounter Fracture alignment: displaced Fracture type: closed Laterality: right Fracture of proximal end of tibia S82.101A Encounter type: initial encounter Fracture morphology: unspecified fracture morphology Fracture type: closed Laterality: right Thrombocytosis D75.839 Frequent falls R29.6 (4) Lateral malleolar fracture Encounter type: initial encounter Fracture alignment: displaced Fracture type: closed Laterality: right Qualified Code(s): S82.61XA - Displaced fracture of lateral malleolus of right fibula, initial encounter for closed fracture (5) Fracture of proximal end of tibia Encounter type: initial encounter Fracture morphology: unspecified fracture morphology Fracture type: closed Laterality: right Qualified Code(s): S82.101A - Unspecified fracture of upper end of right tibia, initial encounter for closed fracture
--- NOTE | 2024-03-16 23:04 | Palliative Family Discussion ---
Date of Service March 16, 2024 Patient Directed Conference Time of Meetin:30 - 12:15 Participants: Nichole Thomas AGACNP Patient participation: no Patient Support System:Friends / HCPOAs Arben Killian and Jailene Guadarrama Other Healthcare Provider Participation: None Meeting Location: outside pt room Advanced Directive available: yes If yes, descriptors: Arben presented AD properly executed by pt on 01/04/24 naming HCPOA : 1. Arben Killian 2. Jailene Guadarrama A family meeting was held for COCO HOLLY. This meeting was necessary for determining the appropriate course of treatment. Topics of Discussion Topics of Discussion: 1. pt chronic health problems 2. quality of life 3. goals of care Other Content of Meetin. Opportunity given for participants to speak and ask questions. 2. Participants were assured of attention to patient comfort. 3. Reassurance provided. 4. Support was provided for informed, good-roberto decisions. 5. Emotions expressed by family were acknowledged and addressed. 6. Follow-up Outpatient: n/a 7. Plan of Care: continue current level of care. C meeting held with Arben Killian and Jailene Guadarrama, the pt's chosen HCPOAs. Introduced palliative care services role in symptom management and advanced care planning for patients with chronic life limiting disease. Arben shared that the pt has been a SNF for past several years and expressed concern for her quality of life. 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 He shared belief that the pt is cognitively intact but given her expressive aphasia, she is often very frustrated at not being able to convey her thoughts. He shared that her PCP recently recommended that she be evaluated for dementia and requested that be done while she is in hospital. I explained that this is something that is generally done as an outpt. He believes pt is currently at her baseline mental status. They both shared that the pt has expressed that she would like to continue basic care and life prolonging treatments but has refused any "major surgeries or interventions or cancer directed treatments". Arben shared that the pt has always been clear with her end of life wishes and values independence above all. He reinforced desire fo DNR/DNI and no artificial feeding. Jailene expressed concern for dementia as well and questioned the signs of dementia. We discussed that given pt's difficulty communicating it may be difficult to diagnose and spent a substantial amount of time discussing the progressively debilitating nature of dementia. Explained that dementia is incurable and irreversible, and can include progressive/worsening memory loss, confusion, language difficulties/lack of comprehension skills/loss of verbal skills eventually, mood changes, impaired judgment, trouble with motor skills/coordination/balance issues, visual and spatial problems, hallucinations, and personality changes. The rate of progression in mixed dementia can vary widely from person to person. Factors such as the types of dementia involved, overall health, and genetics can influence the speed of progression. Some individuals experience a more gradual decline, while others may progress more rapidly through the stages. We discussed and differentiated dementia from delirium and helped family understand that they can co-exist. I reviewed Dementia is a terminal illness. Aggressive medical treatment for patients with advanced dementia is often inappropriate for medical reasons, has a low rate of success, and can have negative outcomes that hasten functional decline and . ([place] [employer] Ethics Committee and Clinical Practice and Models of Care Committee. J Am Geriatr Soc. 2014 Aug;62(8):1590-3 and Baljinder SL, Alberto JM, Edwin SC, Ishan V. A national study of the location of for older persons with dementia. J Am Geriatr Soc 2005; 53(2):299-305.). Helped them understand differences between dementia and delirium. Discussed typical progression of dementia and how it may be staged. Stage 1: Normal Functioning: In the early stage, individuals show no signs of dementia, and their cognitive function is normal Stage 2: Very Mild Cognitive Decline: Minor memory lapses and forgetfulness may occur but are often attributed to normal aging Stage 3: Mild Cognitive Decline: Early signs of dementia become more noticeable, such as memory problems and difficulty finding words Stage 4: Moderate Cognitive Decline: Memory loss becomes more pronounced, and individuals may struggle with tasks like managing finances and planning Stage 5: Moderately Severe Cognitive Decline: Daily functioning becomes c hallenging, and individuals may require assistance with tasks like dressing and bathing Stage 6: Severe Cognitive Decline: In this stage, individuals need substantial help with daily activities, and communication becomes increasingly difficult Stage 7: Very Severe Cognitive Decline: In the final stage, individuals may lose the ability to communicate, walk, and perform basic tasks. They require rou [id number] care. Older adults with dementia frequently receive acute care in their last year of life although Hospice care was more common for home/S[facility]TER residents. Overall time in hospice remains short due to the underutilization of the hospice benefit for terminal dementia (Juan C MM, Santo JM, Cheng KM, Curtis DE, Marianne PY. Dementia Care in the Last Year of Life: Experiences in a Community Practice and in Snf Facilities. J Palliat Care. 2022;38(2):135-142. doi:10.1177/[id number]) Home Hospice is a valuable option for terminal dementia who desire to have peaceful EOL at home. Home hospice care for advanced dementia can improve symptom management and caregiver satisfaction, while decreasing caregiver burden, preventing hospitalizations and discontinuing unnecessary medication (Pari SANTOS, Abraham R, Dari G, et al. Home hospice for older people with advanced dementia: a pilot captain project [published correction appears in Isr J Health Policy Res. 2019 Sep 06;8(1):56]. Isr J Health Policy Res. 2019;8(1):42. Published 2018July 12. doi:10.1186/r30488-033-6205-c). Discussed hospice benefit: an interdisciplinary program offered by nurses, nurses aides, social workers, chaplains and a medical center representative for patients with a terminal condition and a life expectancy of less than 6 months. This is covered by Medicare at 100%/no out of pocket expense to patient and all meds/supplies needed by patient for the reason they are on hospice are paid for/covered by hospice. The goal is assure quality of life of the patient in their home setting (home, alf, inpatient hospice setting) by providing symptoms management, psychosocial and spiritual support. However, they cannot offer 24 hours care and if the family is unable to provide that care, they will have to consider personal care with out of pocket cost vs. alf placement. We discussed the goals of hospice as a patient service and the goals of care; we discussed EOL trajectories and transitions chris the emotional impact of realizing mortality as a concrete reality from prior abstract considerations. Pt was reassured that no matter where they are along this trajectory, they are not alone - their medical team will remain by their side through their journey. Discussed the pros/cons of accepting help when especially weakened and distres sed by pain-which would also help provide relief/decrease caregiver burden/strain. Jailene shared that several months ago she had met with Hospice team and even signed all papers to enroll pt. She stated that when she discussed this with the pt she became very upset, began to cry and was able to speak to her in full sentences. Jaliene reports that the pt told her she was not ready for hospice s o she cancelled the enrollment. Ultimately they expressed desire to continue with current course of treatment with hope that pt might be discharged to [facility] to gain strength prior to return to her residence. They expressed understanding and gratitude for information offered. We will sign off on this patient as goals of care are clearly established for DNR/DNI but continue all other life prolonging therapies Thank you for including Palliative Care in the management of this patient. Please call with any questions or concerns regarding this consultation. Time Involved in Meeting: I spent 70 minutes overall addressing this case: 5 in medical data review/discussion with referring provider(s) and/or preparation for the visit 10 in direct interaction with the patient [] 45 Advance Care Planning/Goals of Care discussions as detailed above in note (must be >16min) 10 in subsequent review and synthesis of assessment and plan
[2024-03-17 07:33] LABS: Hematocrit (blood only) 26.5 % (37.0-47.0); Hemoglobin 8.2 g/dl (12.0-16.0); Mean Corpuscular Hemoglobin 24.5 pg (25.0-34.0); Mean Corpuscular Hgb Conc 30.9 g/dL (32.0-36.0); Mean Corpuscular Volume 79.1 fL (80.0-100.0); Mean Platelet Volume 9.5 fL (9.4-12.4); Platelet Count 751 K/uL (130-400); RDW Coefficient of Variation 17.7 % (11.5-14.5); RDW Standard Deviation 50.6 fL (36.4-46.3); Red Blood Count 3.35 M/uL (4.20-5.40); White Blood Count 6.95 K/ul (4.8-10.8)
[2024-03-17 07:44] LABS: BUN Creatinine Ratio 14.6 (10-20); Calcium 8.6 mg/dl (8.6-10.3); Creatinine Clr Calc Pharmacy 94.3 ml/min; Potassium 3.1 mmol/L (3.5-5.1)
--- NOTE | 2024-03-17 08:25 | Pain Management Progress Note ---
Date of Service March 17, 2024 Assessment & Plan (1) Presence of intrathecal baclofen pump: (2) Bacteremia due to Staphylococcus: (3) Hemiplegia: Hemiplegia type: spastic Hemiplegia etiology: late effect of cerebrovascular disease Hemiplegia laterality: right dominant side (4) History of CVA (cerebrovascular accident): Plan 1. Due to her impending need for intrathecal baclofen pump refill and her current status with bacteremia on IV vancomycin, her intrathecal pump dose was decreased at today's visit by 20%. PTM was discontinued. Her low reservoir alarm volume was decreased from 2 cc to 1 cc. This will allow us to lengthen her refill interval until early April. If she tolerates 20% dose reduction we will plan to further reduce her dose moving forward and attempt to further lengthen her refill interval. Please refer to pump print out in EMR for details. 2. The patient may utilize baclofen 10 mg every 4 hours as needed for breakthrough spasm. She was encouraged to request baclofen as needed and she verbalized understanding. 3. Will continue to monitor response to intrathecal baclofen dose adjustment with further adjustment accordingly Admission and Anticipated Discharge Date Admission Date: March 07, 2024 Subjective Mrs. Tamayo is a 68-year-old white female who is well-known to the pain service due to her use of intrathecal baclofen and clonidine due to her history of CVA with hemiplegia and associated spasticity. The patient was due for intrathecal pump refill on 03/16/2024. Due to her current bacteremia, refilling of her pump is currently unsafe. There is current plan for IV antibiotic use with vanc omycin x 6 weeks. She denies any current difficulties with any breakthrough spasm. She has used oral baclofen on 2 occasions during this hospital stay. There is likely plan to discharge to outpatient facility for ongoing care and rehabilitative stay with the ongoing use of IV antibiotics. Plan of care discussed with Dr. Pantoja. Physical Exam Physical Exam: General: Patient lying quietly in exam room in no acute distress. Communication was moderately effective although the patient remains aphasic. Abdomen: Intrathecal pump present in the left lower quadrant. The pump was interrogated at today's visit without complication. Extremities: No obvious breakthrough spasticity. She continues with her chronic typical rigidity without change.
[2024-03-17] MEDS: POTASSIUM CHLORIDE CRTAB 20 MEQ TABCR PO STA (09:02)
--- NOTE | 2024-03-17 13:54 | Infectious Disease Progress Nt ---
Date of Service March 17, 2024 Assessment & Plan (1) Fracture, thoracic vertebra, compression: (2) Abnormality of rectum: (3) Right ankle sprain: (4) Closed fracture of nasal bone: (5) Lateral malleolar fracture: (6) Thrombocytosis: (7) Pneumonia: (8) Bacteremia due to Staphylococcus: Plan This is a 68-year-old female with a past medical history of traumatic brain injury, fractured scapula, multiple fractures of the right rib, frequent falls, seizures, aphasia, executive function deficit, lumbar post laminectomy syndrome, urinary incontinence, CVA with residual R hemiparesis who presents from a half-way facility after she was found on the ground between the toilet and the wall of the facility for an unknown period of time. Patient was more confused from her baseline. Patient has expressive aphasia and cannot provide a history. History obtained from chart review. Apparently she was found to have redness and swelling of the right side of her face and right lower extremity. Patient does not remember falling. She is unable to tell me why she presented to the hospital. She tells me that she has back pain and R leg pain .. In the ED, temperature 37.3, pulse 109, RR 18, BP 120/86, O2 sats 94% on room air. Labs: WBC 9.53, hemoglobin 8.6, hematocrit 28.1, platelets 1038, sodium 129, BUN 6, creatinine 0.36, AST 10, ALT 5. Urinalysis> 50 WBC. Negative MRSA screen. COVID testing negative. Blood cultures with MSSA in 2/4 bottles. Urine culture with streptococcus gallolyticus Ct scan of the lumbar spine shows postsurgical thoraco lumbar spine with possible L4 and L5 vertebral fractures and subtle fracture of the left sacral ala. CT scan of the thoracic spine shows a T8 vertebral endplate wedge compression/fracture of unknown age. There is no significant abnormalities of the cervical spine. R Tib-fib x-ray shows a mildly displaced intra-articular fracture of the lateral corner of the right proximal tibia. Subtle nondisplaced cortical fracture laterally of the lateral malleolus. R Ankle x-ray shows no evidence of acute fracture , however overlying cast is limiting bony details. R Knee x-ray with no evidence of acute fracture. Visible distal femur diaphysis shows instrumentation from earlier surgery without periprosthetic lucencies seen to suggest loosening or infection. CT chest shows moderate volume bilateral pleural effusions with overlying consolidations and corresponding interstitial infiltrates right greater than left. Nondisplaced old fracture of the right third rib. A T8 vertebral chronic compression fracture. CT of the face shows a right nasal bone fracture. Head CT with no evidence of acute abnormality. CT abdomen pelvis shows a moderately large sized hiatal hernia. Possible mucosal thickening of fluid/gas filled normal caliber small bowel loops/enteritis. Gas/stool-filled mild distended large bowel loops. Irregular lobulations/abdominal wall thickening of a moderately distended rectum suspicious for malignancy. She has been evaluated by orthopedics, spine surgery, heme-onc, and GI . Her RLE was dressed and casted. No surgical intervention planned to LE or spine. She may undergo a flex sig during this admission She was started on iV vancomycin. She has a history of PCN and cephalexin allergy. ID consulted for MSSA bacteremia. 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 epidural abscess of phlegmon # Multiple fractures acute and chronic -lateral malleolus ,tibial, l4, l5 fracture, ? sacral ala fracture, T8 compression wedge fracture ,R Nasal fracture #B/L pleural effusion with associated opacities, not thought to be infectious per Pulm #Irregular lobulations/wall thickening of distended rectum: r/o malignancy - Strep gallolyticus ( bovis)in urine - association with colon malignancy when in blood culture # Baclofen pump #R femur hardware/instrumentation # Thrombocytosis, improving # Cephalexin allergy : anaphylaxis # PCN Allergy : nausea Per chart - pt states her lips swell however Discussion: The source of the MSSA bacteremia is unknown, could be 2/2 spinal infection. She has multiple prosthetics/instrumentation: Spinal hardware, right femur hardware, baclofen pump. Exam significant for tenderness to palpation of BL flank and lower spine. She complains of back pain and right lower extremity pain. MRI lumbar and thoracic spine reviewed lucency noted adjacent to the T11 pedicle screws, Increased fluid signal within T10-T11 disc space with abnormal marrow signal within the T10 and T11 vertebral bodies with associated endplate erosive changes which are new since CT of November 22, 2023. C/f T10-T11 discitis with associated osteomyelitis and loosening of the T11 pedicle screws as well as possible small developing epidural abscess or phlegmon Right lower extremity is in a cast and I am unable to fully evaluate. Although she fell, there is no khadar cellulitis on the skin or open wounds that are apparent. She has BL pleural effusions with opacities, no thoracentesis per pulmonary. Additionally, a rectal abnormality is seen on imaging--> malignancy needs to be ruled out especially in the setting of multiple fractures. I would not expect MSSA in the GI tract so it is less likely to be the source for her bacteremia. Urine culture growing Streptococcus Gallolyticus. Unclear if symptomatic given her expressive aphasia. It is noted that STREP gallolyticus ( strep bovis ) especially if in blood culture is associated with Colon malignancy. No strep gallolyticus growth in BCx. TTE shows no significant valvular pathology. No valvular vegetation. 03/10/24 I recommended IR for thoracic spine bone biopsy: send for aerobic, anaerobic, fungal and Afb cultures. ALSO send for histopathology, r/o malignancy 03/11/24 No capability at [facility] currently for bone biopsy at . No bed available at [facility]. She remains HDS. 03/14/24 Pending transfer for biopsy, awaiting ortho spine followup on MRI findings 03/15/24-transfer for bone bx declined as accepting provider felt she was no longer bacteremic , it was not needed. 03/16/24- reevaluated by orthospine; No surgical spine intervention planned. Per discussion with team/PA her spinal surgeon at OSH is aware of MRI spine findings and no plans for intervention . 03/17 pending placement . Repeat Bc remains sterile. Anticipate 6 weeks of IV abx followed by suppression in setting of retained hardware: will treat from sterile BC as no interventions planned by general ortho for LE or Ortho spine. If source of bacteremia is spinal infection, it will be hard to clear in setting of retained hardware and ? abscess. She had MSSA in BC and strep gall in urine with PCN and Cephalexin anaphylaxis. I doubt lung infection, so since plan for intermediate IV abx, therapy changed from IV Vancomycin to Daptomycin 8 mg /kg Iv daily ( adj bw) as it is less nephrotoxic and levels do not to be managed outpatient. Recommendations -Continue Daptomycin 8 mg/kg IV daily ( adj bw); Hold atorvastatin while on Daptomycin if possible . CK pending ( 03/09/24- 04/20/24) , then start suppressive therapy with doxycycline 100 mg po q 12 hrs ( 04/21/24) for at least 6 months but could be longer -Added Rifampin 300 mg PO q12h for synergy for MSSA bacteremia and possible spinal infection in setting or retained hardware . Discussed with ID pharmacist. Will need to monitor closely for DDI. ( 03/17/24- 04/20/24). If c ontinues to tolerate and no drug drug interactions ( DDI) , then continue in combination with doxycycline suppression from 04/21 for at least 6 months -Possible DDI in the setting of RIFAMPIN include DECREASE affect of atorvastatin ( held while on Dapto); INCREASE affect of clopidogrel which she is on at home. Should be avoided due to bleeding risk. Would avoid resuming on discharge. May need to consider an alternative antiplatelet therapy. Also look for drug drug interactions with pain medications including: morphine, tramadol, colecoxib. Once rifampin is discontinued, pain medication effects may be INCREASED which may not be immediate. There is increased risk of respiratory depression, seizure, serotonin syndrome. If pain meds are increased or started while on rifampin, would need to decrease them back when rifampin is discontinued. Also expect red-orange fluid, tears, urine, sweat on therapy -Follow up flex sig chris in setting of CT imaging, Step bovis in ucx and multiple fractures--> r/o malignancy -Weekly cbc with diff, bmp, CPK on IV antibiotics - Monitor DDI as per above closely . Stop of rifampin may increase effects of pain meds she is currently receiving. -Set up care with local ID , She will need close monitoring as per above. . -Repeat Blood culture and repeat MRI spine approximately 1-2 week post completion of IV abx ( week of 04/25 ) Discussed with team and Id pharmacist ID will stop actively following. Please call with questions. Alondra Clark MD, MPH Infectious Disease [facility], ID Division Call [phone] with questions. Admission and Anticipated Discharge Date Admission Date: March 07, 2024 Subjective This patient recommendation is based on a telemedicine consult request which was completed asynchronously through chart review and information provided by the primary physician. The patient was not seen or examined today. The evaluation is consultative in nature and all patient care and treatment decisions can either be accepted or rejected by the patient's primary hospital-based treating physician using their own independent medical judgment for their patient. Time Spent Reviewing Chart: 31+ minutes Results & Data Vital Signs (Past 12 Hours) Vital Signs Temp Pulse Resp BP Pulse Ox O2 Del Method 03/17/24 07:26 37.0 C 81 16 161/75 H 93 Room Air Laboratory Results Laboratory Results - last 48 hr 03/10/24 03/16/24 03/16/24 08:41 08:18 09:14 WBC Cancelled 9.04 RBC Cancelled 4.11 L Hgb Cancelled 9.7 L Hct Cancelled 32.3 L MCV Cancelled 78.6 L MCH Cancelled 23.6 L MCHC Cancelled 30.0 L RDW Std Deviation Cancelled 51.0 H RDW Coeff of Tera Cancelled 18.0 H Plt Count Cancelled 779 H MPV Cancelled 9.5 Absolute Nucleated RBC Cancelled Nucleated RBC % (auto) Cancelled Platelet Estimate Cancelled Sodium 134 L Potassium 3.3 L Chloride 99 Carbon Dioxide 25 Anion Gap 10 BUN 6 Creatinine 0.45 L Est Cr Clr Drug Dosing 85.9 eGFR 104.72 BUN/Creatinine Ratio 13.3 Glucose 88 Calcium 9.0 Magnesium 1.9 Total Creatine Kinase JAK2 V617F Mutation See Comment 03/17/24 06:24 WBC 6.95 RBC 3.35 L Hgb 8.2 L Hct 26.5 L MCV 79.1 L MCH 24.5 L MCHC 30.9 L RDW Std Deviation 50.6 H RDW Coeff of Tera 17.7 H Plt Count 751 H MPV 9.5 Absolute Nucleated RBC Nucleated RBC % (auto) Platelet Estimate Sodium 135 L Potassium 3.1 L Chloride 100 Carbon Dioxide 29 Anion Gap 6 BUN 6 Creatinine 0.41 L Est Cr Clr Drug Dosing 94.3 eGFR 107.10 BUN/Creatinine Ratio 14.6 Glucose 88 Calcium 8.6 Magnesium Total Creatine Kinase 28 JAK2 V617F Mutation Diagnostic Findings Microbiology 03/09/24 07:24 Blood Aerobic Blood Culture - Final No growth in Aerobic bottle after 5 days. 03/09/24 07:24 Blood Anaerobic Blood Culture - Final No growth in Anaerobic bottle after 5 days. 03/09/24 07:36 Blood Aerobic Blood Culture - Final No growth in Aerobic bottle after 5 days. 03/09/24 07:36 Blood Anaerobic Blood Culture - Final No growth in Anaerobic bottle after 5 days. 03/07/24 00:09 Blood Aerobic Blood Culture - Final Staphylococcus aureus 03/07/24 00:09 Blood Anaerobic Blood Culture - Final Staphylococcus aureus 03/07/24 00:23 Blood Aerobic Blood Culture - Final No growth in Aerobic bottle after 5 days. 03/07/24 00:23 Blood Anaerobic Blood Culture - Final 03/06/24 21:29 Urine,Straight Cath Urine Culture - Final Streptococcus gallalyticus Medications Administered Home Medications Medication Instructions Recorded Confirmed Last Taken baclofen 10 mg tablet 10 mg PO DAILY PRN spasms #90 tabs 12/01/22 03/07/24 Unknown celecoxib 200 mg capsule 200 mg PO QAM #90 caps 03/20/23 03/07/24 11/05/23 clopidogrel 75 mg tablet 75 mg PO HS #90 tabs 03/20/23 03/07/24 11/05/23 atorvastatin 10 mg tablet 10 mg PO [id number] 09/28/23 03/07/24 11/04/23 duloxetine 30 mg capsule,delayed 30 mg PO DAILY #30 caps 11/12/23 03/07/24 Unknown release (Cymbalta) cholecalciferol (vitamin D3) 25 25 mcg PO DAILY 02/18/24 03/07/24 Unknown mcg (1,000 unit) capsule docusate sodium 100 mg capsule 100 mg PO BID 02/18/24 03/07/24 Unknown enoxaparin 30 mg/0.3 mL 30 mg subcut BID 02/18/24 03/07/24 Unknown subcutaneous syringe (Lovenox) lidocaine 4 % topical patch 1 patch topical DAILY 02/18/24 03/07/24 Unknown (Aspercreme (lidocaine)) ondansetron HCl 4 mg tablet 4 mg PO Q4H PRN Nausea And Vomiting 02/18/24 03/07/24 Unknown sennosides 8.6 mg tablet (Senokot) 17.2 mg PO BID 02/18/24 03/07/24 Unknown Wheelchair (Manual) #1 ea 02/25/24 02/25/24 Unknown denosumab 60 mg/mL subcutaneous 60 mg subcut UD 03/07/24 03/07/24 Unknown syringe (Prolia) morphine concentrate 100 mg/5 mL 10 mg PO Q1H PRN SOB/Pain 03/07/24 03/07/24 Unknown (20 mg/mL) oral solution sodium chloride 1 gram tablet 2,000 mg PO BID 03/07/24 03/07/24 Unknown tramadol 50 mg tablet 50 mg PO Q8H PRN Severe Pain 03/07/24 03/07/24 Unknown (Scale Score 7-10) Active Medications Generic Name Dose Route Start Last Admin Trade Name Freq PRN Reason Stop Dose Admin Acetaminophen 650 mg 03/07/24 03:09 03/10/24 03:50 Acetaminophen 325 Mg Tab PO 04/06/24 03:08 650 mg Q4H PRN Administration Pain or Fever Atorvastatin Calcium 10 mg 03/07/24 09:00 03/16/24 09:31 Atorvastatin 10 Mg Tab PO 04/06/24 08:59 10 mg [id number] FREDO Administration Baclofen 10 mg 03/07/24 03:09 03/12/24 10:14 Baclofen 10 Mg Tab PO 04/06/24 03:08 10 mg DAILY PRN Administration spasms Cyanocobalamin 100 mcg 03/08/24 09:00 03/17/24 09:02 Cyanocobalamin (B-12) 100 Mcg Tablet PO 04/07/24 08:59 Not Given QAM FREDO Docusate Sodium 100 mg 03/07/24 09:00 03/17/24 09:02 Docusate Sodium 100 Mg Cap PO 04/06/24 08:59 100 mg BID FREDO Administration Duloxetine HCl 30 mg 03/07/24 09:00 03/17/24 09:02 Duloxetine Hcl 30 Mg Cap PO 04/06/24 08:59 30 mg DAILY FREDO Administration Enoxaparin Sodium 40 mg 03/13/24 09:00 03/17/24 09:03 Enoxaparin Inj 40 Mg/0.4 Ml Syr SQ 04/12/24 08:59 Not Given QAM FREDO Ferrous Sulfate 325 mg 03/09/24 09:00 03/17/24 09:03 Ferrous Sulfate 325 Mg Tab PO 04/08/24 08:59 Not Given QAM FREDO Furosemide 20 mg 03/09/24 15:30 03/17/24 09:59 Furosemide Inj 20 Mg/2 Ml Vial IV 04/08/24 15:29 Not Given QAM FREDO Lidocaine 1 patch 03/07/24 09:00 03/17/24 09:02 Lidocaine 5% 1 Patch TD 04/06/24 08:59 1 patch QAM FREDO Administration Potassium Chloride 10 meq 03/07/24 09:00 03/17/24 09:02 Potassium Chloride 10 Meq Tabcr PO 04/06/24 08:59 10 meq DAILY FREDO Administration Sennosides 17.2 mg 03/07/24 09:00 03/17/24 09:03 Senna 8.6 Mg Tab PO 04/06/24 08:59 Not Given BID FREDO Sodium Chloride 2 gm 03/07/24 09:00 03/17/24 09:03 Sodium Chloride 1 Gm Tablet PO 04/06/24 08:59 Not Given BID FREDO Tramadol HCl 50 mg 03/09/24 21:12 03/12/24 10:14 Tramadol Hcl 50 Mg Tablet PO 04/08/24 21:11 50 mg Q6H PRN Administration Pain Vitamin D 25 mcg 03/07/24 09:00 03/17/24 09:02 Cholecalciferol 25 Mcg (1000 Units) Tab PO 04/06/24 08:59 Not Given DAILY FREDO (7) Pneumonia Laterality: unspecified laterality Lung location: unspecified part of lung Pneumonia type: due to unspecified organism Qualified Code(s): J18.9 - Pneumonia, unspecified organism
--- NOTE | 2024-03-17 14:01 | Hospitalist Progress Note ---
Date of Service March 17, 2024 Assessment & Plan (1) Bacteremia due to Staphylococcus: (2) Parapneumonic effusion: (3) Acute UTI: (4) Lateral malleolar fracture: (5) Fracture of proximal end of tibia: (6) Thrombocytosis: (7) Frequent falls: Plan The patient is a 68-year-old female with a past medical history including traumatic brain injury with delayed recovery, fractured scapula, multiple fractures of right sided ribs, frequent falls, generalized weakness, malnutrition, seizure history, hyponatremia, aphasia due to disease, executive function deficit, lumbar postlaminectomy syndrome and urinary incontinence. She is referred to the emergency department after being found between the toilet and wall facility for an unknown length of time after an unwitnessed fall. Staff became concerned because the patient had a simin on the right side of her face, and that she seemed more confused than her baseline. #MSSA Bacteremia -unknown source Blood culture: MSSA. source unknown - suspecting back Repeat blood cultures 03/09: no growth 48 hours TTE: without vegetations MRI spine: changes at T10/T11 associate with hardware, concern for osteomyelitis. Possible Small developing abscess or phlegmon. Pain pump functioning properly post MRI. Infectious disease consulted - switched to daptomycin and rifampin - plan to continue x 6 weeks on discharge. Statin held. [facility] denied [place] 03/14. [facility]ospine evaluated patient on 03/16 - recommending continuing IV abx and follow up with ortho spine surgeon at [facility]. #Parapneumonic effusions bilaterally Chest CT 03/06: moderate volume b/l new pleural effusions w/ overlying con solidation/atelectasis & corresponding interstitial infiltrates. Pulmonary consulted for possible thoracentesis - continue diuretics, would recommend against thoracentesis. etiology HEpEF vs hypoalbuminemia Patient has been stable on room air for duration of stay - recheck CXR this AM shows stable effusion, but pt continues to be net negative, will continue diuresis #Urinary tract infection- UC: strep gallalyticus Will be covered by vanco, but not source of bacteremia. Concerning in group with strep bovis for colon cancer. #Right proximal tibial and lateral malleolar fracture- Read as possibly acute by radiology overnight Ortho evaluated patient 03/07 - no fracture identified. Likely right knee contusion and right ankle sprain. Immobilizer from ED removed - cast padding and VICKIE wrap applied for comfort. PT/OT - recommend return to prior living arrangement, would not be possible if pt needs IV antibiotics #Multiple vertebral fractures, with unclear timeframe- Patient has had significant trauma admission at [facility] in [place] in December this year. Prior back surgeries with Dr. Mesa ([facility]) Fractures at T8, L4 and L5 have been referred to but, appears to be more chronic than acute Consult orthopedic spine - recommend mobilization, no brace or surgery. Presently on a baclofen pump, Which has been recently refilled by pain management service, and reportedly is filled until appointment 03/16 #Thrombocytosis/progressive anemia- Platelets have been 298 at baseline, but on admission were 1038 - 751 on 03/17 Hemoglobin baseline has been 12-13, but 8.6 on admission - stable at 8.2 Iron panel: transferrin sat 7%, iron 11, TIBC 160 Vitamin B12: 154, started on PO supplementation, Patient declined B12 injection. 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 No concerns myeloproliferative neoplasm. - continue to treat iron deficiency. S/p Venofer x2 - continue on PO supplementation - JAK2 mutation testing pending AM CBC #Abnormal CT finding CTAP 03/06: Possible enteritis, possible large bowel loops and question of possible malignancy with anasarca GI consulted - deferred flex sigmoidoscopy outpatient. Hgb has been stable, no signs of bleeding. #Hypokalemia- K 3.1 Patient takes 10meq daily --> consider increasing to 20meq daily given persistent hypokalemia despite daily therapy. replaced as necessary #Hypomagnesemia- Magnesium 1.9 replete as necessary #Aphasia Chronic after stroke. Able to speak some, reliable answer yes or no questions. Able to understand/comprehend what you are saying. Communication Board for patient #Long-term disposition, patient has been seen by palliative care (wendy) in the outpatient setting Palliative care discussion regarding goals of care took place on 03/16. - discussed w/ palliative care team following discussion that patient will continue treatment for her osteomyelitis. Patient medically stable for discharge as of 03/17 and is awaiting placement at a facility for IV abx Dispo: medical DVT proh: lovenox Admission and Anticipated Discharge Date Admission Date: March 07, 2024 Subjective Patient seen and examined this morning. Patient denied complaints at time of encounter today. Physical Exam Constitutional: WD/WN, vitals as above Eyes: PERRL, conjunctivae normal, anicteric sclerae Respiratory: breathing unlabored Cardiovascular: well perfused Results & Data Results & Data Vital Signs (Past 12 Hours) Vital Signs Temp Pulse Resp BP Pulse Ox O2 Del Method 03/17/24 07:26 37.0 C 81 16 161/75 H 93 Room Air PG Care Time/CCT Total # of Minutes Spent Total Time Spent with Patient: Total time spent is greater than 50% in coordination of care (as documented) at patient's floor/unit and/or counseling patient: Coding Level of Care Code 52117 SUB INP/OBS CARE 2/35MIN Diagnoses Bacteremia due to Staphylococcus R78.81; B95.8 Parapneumonic effusion J18.9; J91.8 Acute UTI N39.0 Lateral malleolar fracture S82.61XA Encounter type: initial encounter Fracture alignment: displaced Fracture type: closed Laterality: right Fracture of proximal end of tibia S82.101A Encounter type: initial encounter Fracture morphology: unspecified fracture morphology Fracture type: closed Laterality: right Thrombocytosis D75.839 Frequent falls R29.6 (4) Lateral malleolar fracture Encounter type: initial encounter Fracture alignment: displaced Fracture type: closed Laterality: right Qualified Code(s): S82.61XA - Displaced fracture of lateral malleolus of right fibula, initial encounter for closed fracture (5) Fracture of proximal end of tibia Encounter type: initial encounter Fracture morphology: unspecified fracture morphology Fracture type: closed Laterality: right Qualified Code(s): S82.101A - Unspecified fracture of upper end of right tibia, initial encounter for closed fracture
[2024-03-17] MEDS: DAPTOmycin 375 MG in SYRINGE 0 ML IV SCH (18:19)
[2024-03-17] MEDS: rifAMPin 300 MG CAPSULE PO SCH (20:25)
[2024-03-18 07:58] LABS: Hematocrit (blood only) 26.7 % (37.0-47.0); Hemoglobin 8.2 g/dl (12.0-16.0); Mean Corpuscular Hemoglobin 24.3 pg (25.0-34.0); Mean Corpuscular Hgb Conc 30.7 g/dL (32.0-36.0); Mean Platelet Volume 9.2 fL (9.4-12.4); Platelet Count 755 K/uL (130-400); RDW Coefficient of Variation 17.6 % (11.5-14.5); RDW Standard Deviation 50.8 fL (36.4-46.3); Red Blood Count 3.38 M/uL (4.20-5.40); White Blood Count 7.61 K/ul (4.8-10.8)
[2024-03-18 08:31] LABS: Calcium 8.8 mg/dl (8.6-10.3); Creatinine Clr Calc Pharmacy 94.3 ml/min; Magnesium 1.7 mg/dl (1.7-2.4); Potassium 3.4 mmol/L (3.5-5.1)
[2024-03-18] MEDS: POTASSIUM CHLORIDE CRTAB 20 MEQ TABCR PO SCH (09:39)
--- NOTE | 2024-03-18 15:51 | Hospitalist Progress Note ---
Date of Service March 18, 2024 Assessment & Plan (1) Bacteremia due to Staphylococcus: (2) Parapneumonic effusion: (3) Acute UTI: (4) Lateral malleolar fracture: (5) Fracture of proximal end of tibia: (6) Thrombocytosis: (7) Frequent falls: Plan The patient is a 68-year-old female with a past medical history including traumatic brain injury with delayed recovery, fractured scapula, multiple fractures of right sided ribs, frequent falls, generalized weakness, malnutrition, seizure history, hyponatremia, aphasia due to disease, executive function deficit, lumbar postlaminectomy syndrome and urinary incontinence. She is referred to the emergency department after being found between the toilet and wall facility for an unknown length of time after an unwitnessed fall. Staff became concerned because the patient had a simin on the right side of her face, and that she seemed more confused than her baseline. #MSSA Bacteremia -unknown source Blood culture: MSSA. source unknown - suspecting back Repeat blood cultures 03/09: no growth 48 hours TTE: without vegetations MRI spine: changes at T10/T11 associate with hardware, concern for osteomyelitis. Possible Small developing abscess or phlegmon. Pain pump functioning properly post MRI. Infectious disease recommendations - daptomycin and rifampin x 6 weeks. Statin held. repeat BC/MRI spine week of 04/25/2024. will require PO abx suppression following IV abx w/ doxy for at least 6months. [facility] denied transfer 03/14. [facility] evaluated patient on 03/16 - recommending continuing IV abx and follow up with ortho spine surgeon at [facility]. #Parapneumonic effusions bilaterally Chest CT 03/06: moderate volume b/l new pleural effusions w/ overlying consolidation/atelectasis & corresponding interstitial infiltrates. Pulmonary consulted for possible thoracentesis - continue diuretics, would recommend against thoracentesis. etiology HEpEF vs hypoalbuminemia Patient has been stable on room air for duration of stay - recheck CXR this AM shows stable effusion, but pt continues to be net negative, will continue diuresis #Urinary tract infection- UC: strep gallalyticus Concerning in group with strep bovis for colon cancer. Resolved, completed course of abx this hospital stay. #Right proximal tibial and lateral malleolar fracture- Read as possibly acute by radiology overnight Ortho evaluated patient 12/30 - no fracture identified. Likely right knee contusion and right ankle sprain. Immobilizer from ED removed - cast padding and VICKIE wrap applied for comfort. PT/OT - recommend return to prior living arrangement, would not be possible if pt needs IV antibiotics #Multiple vertebral fractures, with unclear timeframe- Patient has had significant trauma admission at [facility] in [place] in December this year. Prior back surgeries with Dr. Mesa ([facility]) Fractures at T8, L4 and L5 have been referred to but, appears to be more chronic than acute Consult orthopedic spine - recommend mobilization, no brace or surgery. Presently on a baclofen pump, per pain management they cannot fill w/ active infection - currently down titrating baclofen pump dosage #Thrombocytosis/progressive anemia- Platelets have been 298 at baseline, but on admission were 1038 - 755 on 03/18 Hemoglobin baseline has been 12-13, but 8.6 on admission - stable at 8.2 Iron panel: transferrin sat 7%, iron 11, TIBC 160 Vitamin B12: 154, started on PO supplementation, Patient declined B12 injection. 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 No concerns myeloproliferative neoplasm. - continue to treat iron deficiency. S/p Venofer x2 - continue on PO supplementation - JAK2 mutation testing pending AM CBC #Abnormal CT finding CTAP 03/06: Possible enteritis, possible large bowel loops and question of possible malignancy with anasarca GI consulted - deferred flex sigmoidoscopy outpatient. #Hypokalemia- K 3.4 Increased to 20meq daily given persistent hypokalemia. additional 40meq given 03/18. replete as necessary #Hypomagnesemia- Magnesium 1.7 replete as necessary #Aphasia Chronic after stroke. Able to speak some, reliable answer yes or no questions. Able to understand/comprehend what you are saying. Communication Board for patient #Long-term disposition, patient has been seen by palliative care (wendy) in the outpatient setting Palliative care discussion regarding goals of care took place on 03/16. - discussed w/ palliative care team following discussion that patient will continue treatment for her osteomyelitis. Patient medically stable for discharge as of 03/17 and is awaiting placement at a facility for IV abx Dispo: medical DVT proh: lovenox Admission and Anticipated Discharge Date Admission Date: March 07, 2024 Subjective Patient seen and examined this morning. Patient answered no to experiencing any complaints. Physical Exam Constitutional: WD/WN, vitals as above Eyes: PERRL, conjunctivae normal, anicteric sclerae Respiratory: breathing unlabored Cardiovascular: well perfused Results & Data Results & Data Vital Signs (Past 12 Hours) Vital Signs Temp Pulse Pulse Resp BP Pulse Ox O2 Del Method 03/18/24 14:27 36.6 C 82 16 128/70 94 Room Air 03/18/24 12:07 Room Air 03/18/24 11:55 37.2 C 94 H 18 130/82 95 Room Air 03/18/24 07:55 36.7 C 82 16 130/64 93 Room Air PG Care Time/CCT Total # of Minutes Spent Total Time Spent with Patient: Total time spent is greater than 50% in coordination of care (as documented) at patient's floor/unit and/or counseling patient: Coding Level of Care Code 49150 SUB INP/OBS CARE 2/35MIN Diagnoses Bacteremia due to Staphylococcus R78.81; B95.8 Parapneumonic effusion J18.9; J91.8 Acute UTI N39.0 Lateral malleolar fracture S82.61XA Encounter type: initial encounter Fracture alignment: displaced Fracture type: closed Laterality: right Fracture of proximal end of tibia S82.101A Encounter type: initial encounter Fracture morphology: unspecified fracture morphology Fracture type: closed Laterality: right Thrombocytosis D75.839 Frequent falls R29.6 (4) Lateral malleolar fracture Encounter type: initial encounter Fracture alignment: displaced Fracture type: closed Laterality: right Qualified Code(s): S82.61XA - Displaced fracture of lateral malleolus of right fibula, initial encounter for closed fracture (5) Fracture of proximal end of tibia Encounter type: initial encounter Fracture morphology: unspecified fracture morphology Fracture type: closed Laterality: right Qualified Code(s): S82.101A - Unspecified fracture of upper end of right tibia, initial encounter for closed fracture
[2024-03-18] MEDS: POTASSIUM CHLORIDE CRTAB 20 MEQ TABCR PO STA (16:21)
[2024-03-18] MEDS: ONDANSETRON 4 MG OD TAB PO PRN (17:53)
[2024-03-19] MEDS: FUROSEMIDE 20 MG TAB PO SCH (08:47)
[2024-03-19] MEDS ORDERED: POTASSIUM CHLORIDE CRTAB 20 MEQ TABCR PO SCH (09:00)
[2024-03-19] MEDS: POTASSIUM CHLORIDE CRTAB 20 MEQ TABCR PO STA (11:04)
--- NOTE | 2024-03-19 11:34 | Hospitalist Progress Note ---
Date of Service March 19, 2024 Assessment & Plan (1) Bacteremia due to Staphylococcus: (2) Parapneumonic effusion: (3) Acute UTI: (4) Lateral malleolar fracture: (5) Fracture of proximal end of tibia: (6) Thrombocytosis: (7) Frequent falls: Plan The patient is a 68-year-old female with a past medical history including traumatic brain injury with delayed recovery, fractured scapula, multiple fractures of right sided ribs, frequent falls, generalized weakness, malnutrition, seizure history, hyponatremia, aphasia due to disease, executive function deficit, lumbar postlaminectomy syndrome and urinary incontinence. She is referred to the emergency department after being found between the toilet and wall facility for an unknown length of time after an unwitnessed fall. Staff became concerned because the patient had a simin on the right side of her face, and that she seemed more confused than her baseline. #MSSA Bacteremia -unknown source Blood culture: MSSA. source unknown - suspecting back Repeat blood cultures 03/09: no growth 48 hours TTE: without vegetations MRI spine: changes at T10/T11 associate with hardware, concern for osteomyelitis. Possible Small developing abscess or phlegmon. Pain pump functioning properly post MRI. Infectious disease recommendations - daptomycin and rifampin x 6 weeks. Statin held. repeat BC/MRI spine week of 04/25/2024. will require PO abx suppression following IV abx w/ doxy for at least 6months. [facility] [place]. [facility] evaluated patient on 03/16 - recommending continuing IV abx and follow up with ortho spine [place] [facility] [place] #Parapneumonic effusions bilaterally Chest CT 03/06: moderate volume b/l new pleural effusions w/ overlying consolidation/atelectasis & corresponding interstitial infiltrates. Pulmonary consulted for possible thoracentesis - continue diuretics, would recommend against thoracentesis. etiology HEpEF vs hypoalbuminemia CXR shows stable effusion switched to Lasix 20mg PO to start 03/20. consider repeat CXR prior to discharge to re-eval pleural effusion. Patient remains stable on room air. #Urinary tract infection- UC: strep gallalyticus Concerning in group with strep bovis for colon cancer. Resolved, completed course of abx this hospital stay. #Right proximal tibial and lateral malleolar fracture- Read as possibly acute by radiology overnight Ortho evaluated patient 03/07 - no fracture identified. Likely right knee contusion and right ankle sprain. Immobilizer from ED removed - cast padding and VICKIE wrap applied for comfort. PT/OT - recommend return to prior living arrangement, would not be possible if pt needs IV antibiotics #Multiple vertebral fractures, with unclear timeframe- Patient has had significant trauma admission at [facility] in [place] in December this year. Prior back surgeries with Dr. Mesa ([facility]) Fractures at T8, L4 and L5 have been referred to but, appears to be more chronic than acute Consult orthopedic spine - recommend mobilization, no brace or surgery. Presently on a baclofen pump, per pain management they cannot fill w/ active infection - currently down titrating baclofen pump dosage #Thrombocytosis/progressive anemia- Platelets have been 298 at baseline, but on admission were 1038 - 755 on 03/18 Hemoglobin baseline has been 12-13, but 8.6 on admission - stable at 8.2 Iron panel: transferrin sat 7%, iron 11, TIBC 160 Vitamin B12: 154, started on PO supplementation, Patient declined B12 injection. 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 No concerns myeloproliferative neoplasm. - continue to treat iron deficiency. S/p Venofer x2 - continue on PO supplementation - JAK2 mutation testing pending AM CBC #Abnormal CT finding CTAP 03/06: Possible enteritis, possible large bowel loops and question of possible malignancy with anasarca GI consulted - deferred flex sigmoidoscopy outpatient. #Hypokalemia- K 3.4, secondary to diuresis. Increased to 20meq daily given persistent hypokalemia. additional 40meq given 03/19. Hopeful that when patient switches to PO Lasix, potassium will stabilize. replete as necessary #Hypomagnesemia- Magnesium 1.7 replete as necessary #Aphasia Chronic after stroke. Able to speak some, reliable answer yes or no questions. Able to understand/comprehend what you are saying. Communication Board for patient #Long-term disposition, patient has been seen by palliative care (wendy) in the outpatient setting Palliative care discussion regarding goals of care took place on 03/16. - discussed w/ palliative care team following discussion that patient will continu e treatment for her osteomyelitis. Patient medically stable for discharge as of 03/17 and is awaiting placement at a facility for IV abx Dispo: medical DVT proh: lovenox Admission and Anticipated Discharge Date Admission Date: March 07, 2024 Subjective Patient seen and examined today. patient denied any complaints. Physical Exam Constitutional: WD/WN, vitals as above Eyes: PERRL, conjunctivae normal, anicteric sclerae Respiratory: breathing unlabored Cardiovascular: well perfused Results & Data Results & Data Vital Signs (Past 12 Hours) Vital Signs Pulse Pulse Resp BP Pulse Ox O2 Del Method 03/19/24 09:00 Room Air 03/19/24 08:11 65 65 18 148/72 H 91 Room Air PG Care Time/CCT Total # of Minutes Spent Total Time Spent with Patient: Total time spent is greater than 50% in coordination of care (as documented) at patient's floor/unit and/or counseling patient: Coding Level of Care Code 43598 SUB INP/OBS CARE 2/35MIN Diagnoses Bacteremia due to Staphylococcus R78.81; B95.8 Parapneumonic effusion J18.9; J91.8 Acute UTI N39.0 Lateral malleolar fracture S82.61XA Encounter type: initial encounter Fracture alignment: displaced Fracture type: closed Laterality: right Fracture of proximal end of tibia S82.101A Encounter type: initial encounter Fracture morphology: unspecified fracture morphology Fracture type: closed Laterality: right Thrombocytosis D75.839 Frequent falls R29.6 (4) Lateral malleolar fracture Encounter type: initial encounter Fracture alignment: displaced Fracture type: closed Laterality: right Qualified Code(s): S82.61XA - Displaced fracture of lateral malleolus of right fibula, initial encounter for closed fracture (5) Fracture of proximal end of tibia Encounter type: initial encounter Fracture morphology: unspecified fracture morphology Fracture type: closed Laterality: right Qualified Code(s): S82.101A - Unspecified fracture of upper end of right tibia, initial encounter for closed fracture
[2024-03-19 12:26] LABS: BUN Creatinine Ratio 22.8 (10-20); Calcium 9.7 mg/dl (8.6-10.3); Creatinine Clr Calc Pharmacy 67.9 ml/min; Potassium 4.1 mmol/L (3.5-5.1)
[2024-03-20 07:19] LABS: Hematocrit (blood only) 29.6 % (37.0-47.0); Hemoglobin 8.9 g/dl (12.0-16.0); Mean Corpuscular Hemoglobin 23.9 pg (25.0-34.0); Mean Corpuscular Hgb Conc 30.1 g/dL (32.0-36.0); Mean Corpuscular Volume 79.6 fL (80.0-100.0); Platelet Count 754 K/uL (130-400); RDW Coefficient of Variation 17.9 % (11.5-14.5); RDW Standard Deviation 51.8 fL (36.4-46.3); Red Blood Count 3.72 M/uL (4.20-5.40); White Blood Count 6.17 K/ul (4.8-10.8)
[2024-03-20 07:40] LABS: BUN Creatinine Ratio 21.2 (10-20); Calcium 9.5 mg/dl (8.6-10.3); Creatinine Clr Calc Pharmacy 74.4 ml/min; Magnesium 1.8 mg/dl (1.7-2.4); Potassium 4.1 mmol/L (3.5-5.1)
--- NOTE | 2024-03-20 09:56 | Hospitalist Progress Note ---
Date of Service March 20, 2024 Assessment & Plan (1) Bacteremia due to Staphylococcus: (2) Parapneumonic effusion: (3) Acute UTI: (4) Lateral malleolar fracture: (5) Fracture of proximal end of tibia: (6) Thrombocytosis: (7) Frequent falls: Plan The patient is a 68-year-old female with a past medical history including traumatic brain injury with delayed recovery, fractured scapula, multiple fractures of right sided ribs, frequent falls, generalized weakness, malnutrition, seizure history, hyponatremia, aphasia due to disease, executive function deficit, lumbar postlaminectomy syndrome and urinary incontinence. She is referred to the emergency department after being found between the toilet and wall facility for an unknown length of time after an unwitnessed fall. Staff became concerned because the patient had a simin on the right side of her face, and that she seemed more confused than her baseline. #MSSA Bacteremia -unknown source Blood culture: MSSA. source unknown - suspecting back. Repeat blood cultures 03/09: no growth, finalized. TTE: without vegetations MRI spine: changes at T10/T11 associate with hardware, concern for osteomyelitis. Possible Small developing abscess or phlegmon. Pain pump functioning properly post MRI. [facility] [place]. Infectious disease recommendations - daptomycin and rifampin x 6 weeks. Statin held. repeat BC/MRI spine week of 04/25/2024. will require PO abx suppression following IV abx w/ doxy for at least 6months. [facility] evaluated patient on 03/16 - recommending continuing IV abx and follow up with ortho spine surgeon [place] [facility]. #Parapneumonic effusions bilaterally Chest CT 03/06: moderate volume b/l new pleural effusions w/ overlying consolidation/atelectasis & corresponding interstitial infiltrates. Pulmonary consulted for possible thoracentesis - continue diuretics, would recommend against thoracentesis. etiology HEpEF vs hypoalbuminemia switched to Lasix 20mg PO to start 03/20. consider repeat CXR prior to discharge to re-eval pleural effusion. Patient remains stable on room air. AM CMP #Urinary tract infection- UC: strep gallalyticus - completed abx course during stay Concerning in group with strep bovis for colon cancer. #Right proximal tibial and lateral malleolar fracture- Read as possibly acute by radiology overnight Ortho evaluated patient 03/07 - no fracture identified. Likely right knee contusion and right ankle sprain. - cast padding and VICKIE wrap applied for comfort. PT/OT - recommend return to prior living arrangement, would not be possible if pt needs IV antibiotics #Multiple vertebral fractures, with unclear timeframe- Patient has had significant trauma admission at [facility] in [place] in December this year. Prior back surgeries with Dr. Mesa ([facility]) Fractures at T8, L4 and L5 have been referred to but, appears to be more chronic than acute Consult orthopedic spine - recommend mobilization, no brace or surgery. Presently on a baclofen pump, per pain management they cannot fill w/ active infection - currently down titrating baclofen pump dosage, prn PO dosage frequency increase to q4H #Thrombocytosis/progressive anemia- Platelets have been 298 at baseline, but on admission were 1038, now slowing downtrending Hemoglobin baseline has been 12-13, but 8.6 on admission and remained stable. Iron panel: transferrin sat 7%, iron 11, TIBC 160 Vitamin B12: 154, started on PO supplementation, Patient declined B12 injection. 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 No concerns myeloproliferative neoplasm. - continue to treat iron deficiency. S/p Venofer x2 - continue on PO supplementation - JAK2 mutation: not detected #Abnormal CT finding CTAP 03/06: Possible enteritis, possible large bowel loops and question of possible malignancy with anasarca GI consulted - deferred flex sigmoidoscopy outpatient. #Hypokalemia- K 3.4, secondary to diuresis. Increased to 20meq daily given persistent hypokalemia. replete as necessary #Aphasia Chronic after stroke. Able to speak some, reliable answer yes or no questions. Able to understand/comprehend what you are saying. Communication Board for patient Palliative care discussion regarding goals of care took place on 03/16. - discussed w/ palliative care team following discussion that patient will continue treatment for her osteomyelitis. Dispo: awaiting placement at a facility for IV abx DVT proh: lovenox Admission and Anticipated Discharge Date Admission Date: March 07, 2024 Subjective Patient seen sitting up in bed, finishing breakfast. Denies back pain at present but does endorse pain has been worse since decreasing the rate of her pump. She is aware she can take PO option more frequently if needed. Awaiting placement, denies other acute concerns. Review of Systems Review of Systems: All systems reviewed & are unremarkable except as noted in Subjective Physical Exam Physical Exam: General: NAD, VS as above, lying in bed, appears comfortable Resp: normal respiratory effort, lungs clear to auscultation CV: RRR, no murmur. Abd: normal bowel sounds, non tender, no hepatosplenomegaly. pain pump palpable Extremities: right leg in vickie wrap from knee to ankle with ankle brace in place. No LE edema. Results & Data Results & Data Vital Signs (Past 12 Hours) Vital Signs Temp Pulse Resp BP Pulse Ox O2 Del Method 03/20/24 08:39 97.2 F L 87 18 120/75 97 Room Air Laboratory Results cbc and chemistry reviewed PG Care Time/CCT Total # of Minutes Spent Total Time Spent with Patient: Total time spent is greater than 50% in coordination of care (as documented) at patient's floor/unit and/or counseling patient: Coding Level of Care Code 83679 SUB INP/OBS CARE 235MIN Diagnoses Bacteremia due to Staphylococcus R78.81; B95.8 Parapneumonic effusion J18.9; J91.8 Acute UTI N39.0 Lateral malleolar fracture S82.61XA Encounter type: initial encounter Fracture alignment: displaced Fracture type: closed Laterality: right Fracture of proximal end of tibia S82.101A Encounter type: initial encounter Fracture morphology: unspecified fracture morphology Fracture type: closed Laterality: right Thrombocytosis D75.839 Frequent falls R29.6 (4) Lateral malleolar fracture Encounter type: initial encounter Fracture alignment: displaced Fracture type: closed Laterality: right Qualified Code(s): S82.61XA - Displaced fracture of lateral malleolus of right fibula, initial encounter for closed fracture (5) Fracture of proximal end of tibia Encounter type: initial encounter Fracture morphology: unspecified fracture morphology Fracture type: closed Laterality: right Qualified Code(s): S82.101A - Unspecified fracture of upper end of right tibia, initial encounter for closed fracture
[2024-03-21 07:25] LABS: Albumin Globulin Ratio 0.9 (0.9-2); Albumin Level 3.4 gm/dl (3.4-5.0); BUN Creatinine Ratio 24.5 (10-20); Bilirubin,Total 0.5 mg/dl (0.2-1.0); Calcium 9.5 mg/dl (8.6-10.3); Creatinine Clr Calc Pharmacy 78.9 ml/min; Globulin 3.9 gm/dl (2.5-4.0); Potassium 3.8 mmol/L (3.5-5.1); Total Protein 7.3 gm/dl (6.0-8.3)
--- NOTE | 2024-03-21 08:35 | Pain Management Progress Note ---
Date of Service March 21, 2024 Assessment & Plan (1) Presence of intrathecal baclofen pump: (2) Bacteremia due to Staphylococcus: (3) Hemiplegia: Hemiplegia type: spastic Hemiplegia etiology: late effect of cerebrovascular disease Hemiplegia laterality: right dominant side (4) History of CVA (cerebrovascular accident): Plan 1. Intrathecal pump dosage was further decreased by 25% at today's visit. She is now programmed to receive baclofen 91.4 mcg/day and clonidine 9.14 mcg/day. This change will further push the refill alarm date to 04/27/2024. 2. The patient may utilize baclofen 10 mg every 4 hours as needed for breakthrough spasm. 3. Will follow the patient peripherally. Should she still be admitted later in the week, would consider further decreasing the intrathecal pump dosage. Admission and Anticipated Discharge Date Admission Date: March 07, 2024 Subjective With a current infection and near a pump refill date, the intrathecal pump dosage was decreased, low reservoir volume decreased, and PTM was disabled on . Conversation with patient is difficult due to aphasia but there does not appear to be any significant worsening of extremity rigidity. She has not utilized any oral Baclofen. Physical Exam Physical Exam: GENERAL: 68 years old female in no acute distress. + aphasic. ABDOMEN: Intrathecal pump is located in the left lower abdomen. No mobility or tenderness. Incisional site is well approximated without evidence of edema, erythema or skin breakdown. MS/EXTREMITY: No spontaneous spasticity. Chronic flexion contracture of the right arm is mild. There is mild rigidity of the right lower extremity. Flexion contractures predominately of the thumb. Mild rigidity of the right upper extremity. NEURO: AAO x 3. PSYCH: Alert, pleasant, affect is calm.
[2024-03-21] MEDS: CYANOCOBALAMIN (B-12) 500 MCG TABLET PO SCH (10:19)
[2024-03-21] MEDS: IRON SUCROSE 300 MG in SODIUM CHLORIDE 0.9% 250 ML IV ONE (10:20)
--- NOTE | 2024-03-21 16:39 | Hospitalist Progress Note ---
Date of Service March 21, 2024 Assessment & Plan (1) Bacteremia due to Staphylococcus: (2) Parapneumonic effusion: (3) Acute UTI: (4) Lateral malleolar fracture: (5) Fracture of proximal end of tibia: (6) Thrombocytosis: (7) Frequent falls: Plan The patient is a 68-year-old female with a past medical history including traumatic brain injury with delayed recovery, fractured scapula, multiple fractures of right sided ribs, frequent falls, generalized weakness, malnutrition, seizure history, hyponatremia, aphasia due to disease, executive function deficit, lumbar postlaminectomy syndrome and urinary incontinence. She is referred to the emergency department after being found between the toilet and wall facility for an unknown length of time after an unwitnessed fall. Staff became concerned because the patient had a simin on the right side of her face, and that she seemed more confused than her baseline. #MSSA Bacteremia -unknown source Blood culture: MSSA. source unknown - suspecting back. Repeat blood cultures 03/09: no growth, finalized. TTE: without vegetations MRI spine: changes at T10/T11 associate with hardware, concern for osteomyelitis. Possible Small developing abscess or phlegmon. Pain pump functioning properly post MRI. [facility] [place]. Infectious disease recommendations - daptomycin and rifampin x 6 weeks (monitor for Drug drug interaction). Statin held. repeat BC/MRI spine week of 04/25/2024. will require PO abx suppression following IV abx w/ doxy for at least 6months. - weekly CBC with diff, BMP, CK [facility] evaluated patient on 03/16 - recommending continuing IV abx and follow up with ortho spine surgeon at [facility] [place]. #Parapneumonic effusions bilaterally Chest CT 03/06: moderate volume b/l new pleural effusions w/ overlying consolidation/atelectasis & corresponding interstitial infiltrates. Pulmonary consulted for possible thoracentesis - continue diuretics, would recommend against thoracentesis. etiology HEpEF vs hypoalbuminemia switched to Lasix 20mg PO to start 03/20. Patient remains stable on room air. #Urinary tract infection- UC: strep gallalyticus - completed abx course during stay Concerning in group with strep bovis for colon cancer. #Right proximal tibial and lateral malleolar fracture- Read as possibly acute by radiology overnight Ortho evaluated patient 03/07 - no fracture identified. Likely right knee contusion and right ankle sprain. - cast padding and VICKIE wrap applied for comfort. PT/OT - recommend return to prior living arrangement, would not be possible if pt needs IV antibiotics #Multiple vertebral fractures, with unclear timeframe- Patient has had significant trauma admission at [facility] in [place] in December this year. Prior back surgeries with Dr. Mesa ([facility]) Fractures at T8, L4 and L5 have been referred to but, appears to be more chronic than acute Consult orthopedic spine - recommend mobilization, no brace or surgery. Presently on a baclofen pump, per pain management they cannot fill w/ active infection - currently down titrating baclofen pump dosage, prn PO dosage frequency increase to q4H #Thrombocytosis/progressive anemia- Platelets have been 298 at baseline, but on admission were 1038, now slowing downtrending Hemoglobin baseline has been 12-13, but 8.6 on admission and remained stable. Iron panel: transferrin sat 7%, iron 11, TIBC 160 Vitamin B12: 154, started on PO supplementation, Patient declined B12 injection. Heme onc consulted - thrombocytosis likely multifactorial. No concerns myeloproliferative neoplasm. - continue to treat iron deficiency. S/p Venofer x3 - continue on PO supplementation - JAK2 mutation: not detected #Abnormal CT finding CTAP 03/06: Possible enteritis, possible large bowel loops and question of possible malignancy with anasarca GI consulted - deferred flex sigmoidoscopy outpatient. #Hypokalemia- K 3.4, secondary to diuresis. Increased to 20meq daily given persistent hypokalemia with lasix and now stable. 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 Able to speak some, reliable answer yes or no questions. Able to understand/comprehend what you are saying. Communication Board for patient Palliative care discussion regarding goals of care took place on 03/16. - discussed w/ palliative care team following discussion that patient will continue treatment for her osteomyelitis. Given complex needs - multiple follow ups at discharge, ambulatory CM referral placed. Dispo: awaiting placement at a facility for IV abx DVT proh: lovenox Robin updated by phone 03/21 Admission and Anticipated Discharge Date Admission Date: March 07, 2024 Supervising Physician Co-Signing Physician Notes PA Supervision Note: I did not personally see or examine the patient today, but I verified all gerard points of DION Elmore's assessment and plan with the following exceptions/additions: None Subjective patient seen lying in bed, friend present at bedside. She can me permission to speak with his friend was in the room as does not have one of her POA's. Denise denies any pain. Understands we are waiting for facility that can provide her IV antibiotics. Her friend expressed concerned about Denise's ability to communicate. Denise's speech seems to be at baseline. Discussed communication board however that was too overwhelming for patient and friend reports that she had something different at home. I provided paper and a pen so they could make something more similar to what she has had at home. Review of Systems Review of Systems: All systems reviewed & are unremarkable except as noted in Subjective Physical Exam Physical Exam: General: NAD, VS as above, lying in bed, appears comfortable Resp: normal respiratory effort, lungs clear to auscultation CV: RRR, no murmur. Abd: normal bowel sounds, non tender, no hepatosplenomegaly. pain pump palpable Extremities: right leg in vickie wrap from knee to ankle with ankle brace in place. No LE edema. Results & Data Results & Data Vital Signs (Past 12 Hours) Vital Signs Temp Pulse Pulse Pulse Resp BP BP 03/21/24 16:06 98.2 F 91 H 18 143/83 H 03/21/24 11:54 98.2 F 95 H 18 123/72 03/21/24 10:18 98.2 F 96 H 18 126/75 03/21/24 07:57 97.2 F L 88 18 121/75 Pulse Ox O2 Del Method 03/21/24 16:06 95 Room Air 03/21/24 11:54 96 Room Air 03/21/24 10:18 94 Room Air 03/21/24 07:57 94 Room Air Laboratory Results BMP reviewed PG Care Time/CCT Total # of Minutes Spent Total Time Spent with Patient: Total time spent is greater than 50% in coordination of care (as documented) at patient's floor/unit and/or counseling patient: Coding Level of Care Code 81077 SUB INP/OBS CARE 2/35MIN Diagnoses Bacteremia due to Staphylococcus R78.81; B95.8 Parapneumonic effusion J18.9; J91.8 Acute UTI N39.0 Lateral malleolar fracture S82.61XA Encounter type: initial encounter Fracture alignment: displaced Fracture type: closed Laterality: right Fracture of proximal end of tibia S82.101A Encounter type: initial encounter Fracture morphology: unspecified fracture morphology Fracture type: closed Laterality: right Thrombocytosis D75.839 Frequent falls R29.6 (4) Lateral malleolar fracture Encounter type: initial encounter Fracture alignment: displaced Fracture type: closed Laterality: right Qualified Code(s): S82.61XA - Displaced fracture of lateral malleolus of right fibula, initial encounter for closed fracture (5) Fracture of proximal end of tibia Encounter type: initial encounter Fracture morphology: unspecified fracture morphology Fracture type: closed Laterality: right Qualified Code(s): S82.101A - Unspecified fracture of upper end of right tibia, initial encounter for closed fracture
[2024-03-22] MEDS: BACLOFEN 10 MG TAB PO PRN (10:23)
--- NOTE | 2024-03-22 18:10 | Hospitalist Progress Note ---
Date of Service March 22, 2024 Assessment & Plan (1) Bacteremia due to Staphylococcus: (2) Parapneumonic effusion: (3) Acute UTI: (4) Lateral malleolar fracture: (5) Fracture of proximal end of tibia: (6) Thrombocytosis: (7) Frequent falls: Plan The patient is a 68-year-old female with a past medical history including traumatic brain injury with delayed recovery, fractured scapula, multiple fractures of right sided ribs, frequent falls, generalized weakness, malnutrition, seizure history, hyponatremia, aphasia due to disease, executive function deficit, lumbar postlaminectomy syndrome and urinary incontinence. She is referred to the emergency department after being found between the toilet and wall facility for an unknown length of time after an unwitnessed fall. Staff became concerned because the patient had a simin on the right side of her face, and that she seemed more confused than her baseline. In The ER, patient was jones scanned due to her fall finding right proximal tibia and lateral malleolus fractures that were found to be an over read by the orthopedic team suggesting that she had a right knee contusion and right ankle sprain recommending cast padding and Kevin wrap for comfort. Also concerns for multiple vertebral fractures she was evaluated by orthospine these are more likely subacute and no brace or surgery was recommended during her inpatient stay. #MSSA Bacteremia -unknown source Blood culture: MSSA. source unknown - suspecting back. Repeat blood cultures 03/09: no growth, finalized. TTE: without vegetations MRI spine: changes at T10/T11 associate with hardware, concern for osteomyelitis. Possible Small developing abscess or phlegmon. Pain pump functioning properly post MRI. [facility] [place] Infectious disease recommendations - daptomycin and rifampin x 6 weeks (monitor for Drug drug interaction). Statin held. repeat BC/MRI spine week of 04/25/2024. will require PO abx suppression following IV abx w/ doxy for at least 6months. - weekly CBC with diff, BMP, CK [facility] evaluated patient on 03/16 - recommending continuing IV abx and follow up with [place]o spine [place] [facility] [place] #Parapneumonic effusions bilaterally Pulmonary consulted- continue diuretics, would recommend against thoracentesis. etiology HEpEF vs hypoalbuminemia switched to Lasix 20mg PO to start 03/20. Patient remains stable on room air. Salt tabs held as likely contributing to fluid retention, will check a.m. BMP to monitor for any hyponatremia #Urinary tract infection- resolved UC: strep gallalyticus - Concerning in group with strep bovis for colon cancer. #Right proximal tibial and lateral malleolar fracture- Ortho evaluated patient 03/07 - no fracture identified. Likely right knee contusion and right ankle sprain. - cast padding and KEVIN wrap applied for comfort. PT/OT - recommend return to prior living arrangement, would not be possible if pt needs IV antibiotics #Multiple vertebral fractures, with unclear timeframe- Patient has had significant trauma admission at [facility] in [place] in December this year. Prior back surgeries with Dr. Mesa ([facility]) Fractures at T8, L4 and L5 have been referred to but, appears to be more chronic than acute. Orthospine evaluated recommend mobilization, no brace or surgery. Presently on a baclofen pump, per pain management they cannot fill w/ active infection - currently down titrating baclofen pump dosage, prn PO dosage frequency increase to q4H. Pain remains controlled. #Thrombocytosis/progressive anemia- Platelets have been 298 at baseline, but on admission were 1038, now slowing downtrending Hemoglobin baseline has been 12-13, but 8.6 on admission and remained stable. Iron panel: transferrin sat 7%, iron 11, TIBC 160 Vitamin B12: 154, started on PO supplementation, Patient declined B12 injection. Heme onc consulted - thrombocytosis likely multifactorial. No concerns myelopro liferative neoplasm. - continue to treat iron deficiency. S/p Venofer x3 - continue on PO supplementation - JAK2 mutation: not detected #Abnormal CT finding CTAP 03/06: Possible enteritis, possible large bowel loops and question of possible malignancy with anasarca GI consulted - deferred flex sigmoidoscopy outpatient. #Hypokalemia- K 3.4, secondary to diuresis. Increased to 20meq daily given persistent hypokalemia with lasix and now stable. 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 Able to speak some, reliable answer yes or no questions. Able to understand/comprehend what you are saying. Communication Board for patient Palliative care discussion regarding goals of care took place on 03/16. - discussed w/ palliative care team following discussion that patient will continue treatment for her osteomyelitis. Given complex needs - multiple follow ups at discharge, ambulatory CM referral placed. Dispo: awaiting placement at a facility for IV abx, [facility] be able to accept tomorrow DVT proph: juna Kelly updated by phone 03/21 Admission and Anticipated Discharge Date Admission Date: March 07, 2024 Supervising Physician Co-Signing Physician Notes PA Supervision Note: I did not personally see or examine the patient today, but I verified all gerard points of DION Elmore's assessment and plan with the following exception s/additions: None Subjective patient seen lying in bed, was able to speak a few more words than yesterday with beginning of my eval. She states that she is not having back pain currently. When I was explaining to her her discharge planning she seem to get quite worried and was having trouble speaking, eventually figured out she was wondering when she could return home I discussed that this was probably possible after completion of IV antibiotic she was much relieved. Review of Systems Review of Systems: All systems reviewed & are unremarkable except as noted in Subjective Physical Exam Physical Exam: General: NAD, VS as above, lying in bed, appears comfortable Resp: normal respiratory effort, lungs clear to auscultation CV: RRR, no murmur. Abd: normal bowel sounds, non tender, no hepatosplenomegaly. pain pump palpable Extremities: right leg in kevin wrap from knee to ankle with ankle brace in place. No LE edema. Results & Data Results & Data Vital Signs (Past 12 Hours) Vital Signs Temp Pulse Resp BP Pulse Ox O2 Del Method 03/22/24 14:58 98.4 F 91 H 18 119/72 95 Room Air 03/22/24 07:39 97.9 F 94 H 18 134/78 96 Room Air PG Care Time/CCT Total # of Minutes Spent Total Time Spent with Patient: Total time spent is greater than 50% in coordination of care (as documented) at patient's floor/unit and/or counseling patient: Coding Level of Care Code 95481 SUB INP/OBS CARE 2/35MIN Diagnoses Bacteremia due to Staphylococcus R78.81; B95.8 Parapneumonic effusion J18.9; J91.8 Acute UTI N39.0 Lateral malleolar fracture S82.61XA Encounter type: initial encounter Fracture alignment: displaced Fracture type: closed Laterality: right Fracture of proximal end of tibia S82.101A Encounter type: initial encounter Fracture morphology: unspecified fracture morphology Fracture type: closed Laterality: right Thrombocytosis D75.839 Frequent falls R29.6 (4) Lateral malleolar fracture Encounter type: initial encounter Fracture alignment: displaced Fracture type: closed Laterality: right Qualified Code(s): S82.61XA - Displaced fracture of lateral malleolus of right fibula, initial encounter for closed fracture (5) Fracture of proximal end of tibia Encounter type: initial encounter Fracture morphology: unspecified fracture morphology Fracture type: closed Laterality: right Qualified Code(s): S82.101A - Unspecified fracture of upper end of right tibia, initial encounter for closed fracture
[2024-03-22 20:08] VITALS: TEMP 98.1
[2024-03-23 07:30] LABS: Calcium 9.9 mg/dl (8.6-10.3); Potassium 4.3 mmol/L (3.5-5.1)
[2024-03-23 07:36] LABS: BUN Creatinine Ratio 20.8 (10-20); Creatinine Clr Calc Pharmacy 80.6 ml/min
[2024-03-23 07:51] VITALS: BP 120/74; PULSE 82; RESP 16; O2SAT 95
--- NOTE | 2024-03-23 09:40 | Pain Management Progress Note ---
Date of Service March 23, 2024 Assessment & Plan (1) Presence of intrathecal baclofen pump: (2) Bacteremia due to Staphylococcus: (3) Hemiplegia: Hemiplegia type: spastic Hemiplegia etiology: late effect of cerebrovascular disease Hemiplegia laterality: right dominant side (4) History of CVA (cerebrovascular accident): Plan 1. Intrathecal pump dosage was further decreased by 25% today. She is now programmed to receive baclofen 68.6 mcg/day and clonidine 6.86 mcg/day. This change will further push the refill alarm date to 05/09/2024. 2. The patient may utilize baclofen 10 mg every 4 hours as needed for breakthrough spasm. 3. Will see patient for pump refill date of 05/06/24 or earlier if needed. Admission and Anticipated Discharge Date Admission Date: March 07, 2024 Subjective Intrathecal baclofen pump has been decreased by 20% and most recently 25% to push out her next refill date due to current infection. There is no noticeable spasm and extremity rigidity seems unchanged. She has utilized 1 baclofen 10 mg pill yesterday. Physical Exam Physical Exam: GENERAL: 68 years old female in no acute distress. + aphasic. ABDOMEN: Intrathecal pump is located in the left lower abdomen. No mobility or tenderness. Incisional site is well approximated without evidence of edema, erythema or skin breakdown. MS/EXTREMITY: No spontaneous spasticity. Chronic flexion contracture of the right arm is mild. There is mild rigidity of the right lower extremity. Flexion contractures predominately of the thumb. Mild rigidity of the right upper extremity. NEURO: AAO x 3. PSYCH: Alert, pleasant, affect is calm.
--- NOTE | 2024-03-23 10:28 | Discharge Summary ---
Discharge Summary Date of Service March 23, 2024 Principal Dx & Hospital Course #1 = Principal Diagnosis (1) Bacteremia due to Staphylococcus: (2) Parapneumonic effusion: (3) Acute UTI: (4) Lateral malleolar fracture: (5) Fracture of proximal end of tibia: (6) Thrombocytosis: (7) Frequent falls: Plan The patient is a 68-year-old female with a past medical history including traumatic brain injury with delayed recovery, fractured scapula, multiple fractures of right sided ribs, frequent falls, generalized weakness, malnutrition, seizure history, hyponatremia, aphasia due to disease, executive function deficit, lumbar postlaminectomy syndrome and urinary incontinence. She is referred to the emergency department after being found between the toilet and wall facility for an unknown length of time after an unwitnessed fall. Staff became concerned because the patient had a simin on the right side of her face, and that she seemed more confused than her baseline. In The ER, patient was jones scanned due to her fall finding right proximal tibia and lateral malleolus fractures that were found to be an over read by the orthopedic team suggesting that she had a right knee contusion and right ankle sprain recommending cast padding and Kevin wrap for comfort. Also concerns for multiple vertebral fractures she was evaluated by orthospine these are more likely subacute and no brace or surgery was recommended during her inpatient stay. she had blood cultures that were positive for MSSA, source not definitively known but we are expecting it to be her back. She was denied transfer to [facility] and recommended to follow-up outpatient with her back surgeon since her repeat blood cultures were negative. She was seen by infectious disease and have detailed recommendations below. Her pain pump was unable to be refilled due to the active infection so the dosing has been titrated down with increasing p.o. options available. There was also an incidental finding of thickening of her colon concerning for colon cancer. She will follow-up with outpatient for flex sig. She is discharged to Center care to complete the course of her IV antibiotics. #MSSA Bacteremia -unknown source Source was never finalized but suspected to be her lower back with hardware from previous surgery at [facility]. Denied transfer and will need outpatient follow- up with spine surgeon. Ultrasound-guided line placed 03/14. Infectious disease recommendations as follows: -Continue Daptomycin 8 mg/kg IV daily ( adj bw); Hold atorvastatin while on Daptomycin if possible . CK pending ( 03/09/24- 04/20/24) , then start suppressive therapy with doxycycline 100 mg po q 12 hrs ( 04/21/24) for at least 6 months but could be longer -Added Rifampin 300 mg PO q12h for synergy for MSSA bacteremia and possible spinal infection in setting or retained hardware . Discussed with ID pharmacist. Will need to monitor closely for DDI. ( 03/17/24- 04/20/24). If cont inues to tolerate and no drug drug interactions ( DDI) , then continue in combination with doxycycline suppression from 04/21 for at least 6 months -Possible DDI in the setting of RIFAMPIN include DECREASE affect of atorvastatin ( held while on Dapto); INCREASE affect of clopidogrel which she is on at home. Should be avoided due to bleeding risk. Would avoid resuming on discharge. May need to consider an alternative antiplatelet therapy. Also look for drug drug interactions with pain medications including: morphine, tramadol, colecoxib. Once rifampin is discontinued, pain medication effects may be INCREASED which may not be immediate. There is increased risk of respiratory depression, seizure, serotonin syndrome. If pain meds are increased or started while on rifampin, would need to decrease them back when rifampin is discontinued. Also expect red-orange fluid, tears, urine, sweat on therapy -Follow up flex sig chris in setting of CT imaging, Step bovis in ucx and multiple fractures--> r/o malignancy -Weekly cbc with diff, bmp, CPK on IV antibiotics - Monitor DDI as per above closely . Stop of rifampin may increase effects of pain meds she is currently receiving. -Set up care with local ID , She will need close monitoring as per above. -Repeat Blood culture and repeat MRI spine approximately 1-2 week post completion of IV abx ( week of 04/25 ) Patient was switched to baby aspirin for stroke prevention while on rifampin. Referred to local ID. statin held while on daptomycin #Parapneumonic effusions bilaterally Pulmonary consulted- continue diuretics, would recommend against thoracentesis. Has seen nephrology in the past regarding her hyponatremia remained on salt tabs 1 mg twice daily and to continue her Lasix 20 mg p.o. Her kidney function will be checked as above with her IV antibiotics #Abnormal CT finding CTAP 03/06: Possible enteritis, possible large bowel loops and question of possible malignancy with anasarca GI consulted - deferred flex sigmoidoscopy outpatient. #Urinary tract infection- resolved UC: strep gallalyticus - Concerning in group with strep bovis for colon cancer. #Right proximal tibial and lateral malleolar fracture- over read on imaging, likely ankle sprain. Ortho recommended- cast padding and KEVIN wrap applied for comfort. #Multiple vertebral fractures, with unclear timeframe- Fractures at T8, L4 and L5 have been referred to but, appears to be more chronic than acute. Orthospine evaluated recommend mobilization, no brace or surgery. Presently on a baclofen pump, per pain management they cannot fill w/ active infection - currently down titrating baclofen pump dosage, prn PO dosage frequency increase to q4H. Pain remains controlled. pain management follow-up appointment scheduled for 05/06 #Thrombocytosis/progressive anemia- Platelets have been 298 at baseline, but on admission were 1038, now slowing downtrending Hemoglobin baseline has been 12-13, but 8.6 on admission and remained stable. heme-onc was consulted and thrombocytosis thought to be multifactorial but not from bilobed proliferative neoplasm. Recommend treating infection and iron deficiency for which she received 3 doses of Venofer and was started on p.o. supplementation. Also started on vitamin B12 supplementation. Consider heme- onc follow-up if thrombocytosis is not improved with monitoring from weekly labs as above. #Hypokalemia- Increased to 20meq daily given persistent hypokalemia with lasix and now stable. 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 Palliative care discussion regarding goals of care took place on 03/16. - discussed w/ palliative care team following discussion that patient will continue treatment for her osteomyelitis. Given complex needs - multiple follow ups at discharge, ambulatory CM referral placed. Dispo: Discharged to Center care today. Discussed with case management Robin updated by phone 03/21 & 03/12 Notes For Next Care Provider see infectious disease recommendations above Needs close follow-up with back surgeon at [facility], local ID, pain management and GI. Consider heme-onc referral if leukocytosis is not improved. pain pump refill have been pushed out due to active infection. Medication Changes From Visit Plavix changed to aspirin while on rifampin Daptomycin for infection, statin on hold Potassium increased to 20 mill equivalents daily Added iron supplementation Added vitamin B12 supplementation Lasix added for pulmonary effusions Admission HPI Per Admitting Provider The patient is a 68-year-old female with a past medical history including traumatic brain injury with delayed recovery, fractured scapula, multiple fractures of right sided ribs, frequent falls, generalized weakness, malnutrition, seizure history, hyponatremia, aphasia due to disease, executive function deficit, lumbar postlaminectomy syndrome, and urinary incontinence. The patient underwent went a significant workup at [facility] in [place] where she had been treated for several traumas. She continued to issues with executive functioning, has been seen by palliative care, and presently living at [facility]. The patient is not able to contribute with any significance to her HPI or review of systems Discharge Exam General: NAD, VS as above, lying in bed, appears comfortable Resp: normal respiratory effort, lungs clear to auscultation CV: RRR, no murmur. Abd: normal bowel sounds, non tender, no hepatosplenomegaly. pain pump palpable Extremities: right leg in kevin wrap from knee to ankle with ankle brace in place. No LE edema. Discharge Plan Discharge Items Patient Disposition: Transfer Group Home Fac Reason For Visit: S/P FALL, CONFUSION, B/L PARAPNEUMONIC EFFUSIONS Discharge Diagnosis: MSSA bacteremia- unknown source, suspect T-spine. Thickening of colon thrombocytosis Condition on Discharge: Good Activity: Resume your previous activity Non-emergency contact: Primary Care Provider Call non-emergency contact if: you have any medication questions, your symptoms worsen, your pain is not controlled and your temperature is above 101 Follow-up/Referrals: Joel Motta DO [Physician] - (follow up for flex sig ) Tracy Gonzalez PA-C [Physician Postdoctoral Scientist] - (keep appointment 05/06 ) Aaron Bowers MD [Primary Care Provider] - ( follow-up within 7 to 10 days of discharge from Center care) Osvaldo Mesa M.D. [Staff Physician] - (Follow up JUAN to discuss back infection ) Drew Liu DO [Physician] - (local infectious disease follow up ) Diet: Regular Diet Texture: Dental soft (bite-sized) Addtl Attending Provider Instructions: Ms. Tamayo, you were hospitalized after a fall that resulted in a knee contusion and ankle sprain,. The cause of your fall was likely due to a bacterial infection that was found in your blood, we are unsure of the definitive source but we suspected your spine. You will remain on IV antibiotics for 4 more weeks for total completion of 6 weeks and then you will have to be on lifelong suppressive therapy. You will need to follow-up with your spine surgeon at [facility] for further recommendations regarding your spine. You were also found to have an abnormal finding of your colon on CT scan, there is a concern for colon cancer. You should have outpatient GI follow-up for biopsy for further investigation. Changes/Recommendations: - plavix held while on Rifampin. Baby aspirin 81mg started for stroke prevention - Salt tabs decreased to 1mg BID - Statin held while on daptomycin - started lasix 20mg daily for pleural effusion - potassium supplementaion increased to 20meq - started B12 supplementation - Decreasing dose with pain pump to last until damion until 05/06 - Follow up with local infectious disease - I have placed a referral and they will contact you - Follow up with ortho spine Doctor at [facility]: - On a dental soft/bite-size diet - Aphasic but can respond to yes/no questions - ultrasound-guided line placed 03/14 - recommendations from ID below: , patient will be referred to Dr. Main for local ID follow up -Continue Daptomycin 8 mg/kg IV daily ( adj bw); Hold atorvastatin while on Daptomycin if possible . CK pending ( 03/09/24- 04/20/24) , then start suppressive therapy with doxycycline 100 mg po q 12 hrs ( 04/21/24) for at least 6 months but could be longer -Added Rifampin 300 mg PO q12h for synergy for MSSA bacteremia and possible spinal infection in setting or retained hardware . Discussed with ID pharmacist. Will need to monitor closely for DDI. ( 03/17/24- 04/20/24). If continues to tolerate and no drug drug interactions ( DDI) , then continue in combination with doxycycline suppression from 04/21 for at least 6 months -Possible DDI in the setting of RIFAMPIN include DECREASE affect of atorvastatin ( held while on Dapto); INCREASE affect of clopidogrel which she is on at home. Should be avoided due to bleeding risk. Would avoid resuming on discharge. May need to consider an alternative antiplatelet therapy. Also look for drug drug interactions with pain medications including: morphine, tramadol, colecoxib. Once rifampin is discontinued, pain medication effects may be INCREASED which may not be immediate. There is increased risk of respiratory depression, seizure, serotonin syndrome. If pain meds are increased or started while on rifampin, would need to decrease them back when rifampin is discontinued. Also expect red-orange fluid, tears, urine, sweat on therapy -Follow up flex sig chris in setting of CT imaging, Step bovis in ucx and multiple fractures--> r/o malignancy -Weekly cbc with diff, bmp, CPK on IV antibiotics - Monitor DDI as per above closely . Stop of rifampin may increase effects of pain meds she is currently receiving. -Set up care with local ID , She will need close monitoring as per above. -Repeat Blood culture and repeat MRI spine approximately 1-2 week post completion of IV abx ( week of 04/25 ) - has baclofen pump present, was due for refill 03/16 but has not been able to be refilled because of infection, follows with [facility] pain management and they have been slowly decreasing her dose so he does not run out. Appointment scheduled 05/06. P.o. as needed baclofen has been increased to every 4 hours as needed - Salt tabs decreased - check BMP in one week - Check CBC in one week - she had thrombocytosis, treated infection and received venofer x3 and mainitains on PO iron. If thrombocytosis is worsening recommend heme/onc f/u. Saw Dr. Qureshi during hospitalization Pending Studies at Discharge: No Stand-Alone Forms: My [facility] Skilled Items Patient informed of condition?: Yes DNR: Yes Discharge Level of Care: Acute rehab Communicable Disease: No Discharge Prognosis: Stable Lines: US Guided Peripheral IV Urinary Catheter: No Medications and DC Order Prescriptions: New rifampin 300 mg Capsule 300 mg PO BID 28 Days Qty: 56 0RF baclofen 40,000 mcg/20mL (2,000 mcg/mL) Solution 68.6 mcg intrathecal .continuous infusion Qty: 20 0RF aspirin 81 mg Tablet,Delayed Release (Dr/Ec) 81 mg PO QAM Qty: 30 0RF potassium chloride 20 mEq Tablet,Er Particles/Crystals 20 meq PO DAILY Qty: 30 0RF cyanocobalamin (vitamin B-12) 500 mcg Tablet 1,000 mcg PO QAM Qty: 60 0RF baclofen 10 mg Tablet 10 mg PO Q4H PRN (Reason: muscle spasm) 30 Days Qty: 90 0RF furosemide 20 mg Tablet 20 mg PO QAM Qty: 30 0RF ferrous sulfate 325 mg (65 mg iron) Tablet,Delayed Release (Dr/Ec) 325 mg PO QAM Qty: 30 0RF sodium chloride 1,000 mg Tablet,Soluble 1,000 mg PO BID Qty: 60 0RF daptomycin 350 mg recon soln 375 mg IV DAILY Continued duloxetine [Cymbalta] 30 mg capsule,delayed release(DR/EC) 30 mg PO DAILY Qty: 30 5RF docusate sodium 100 mg capsule 100 mg PO BID lidocaine [Aspercreme (lidocaine)] 4 % adhesive patch,medicated 1 patch topical DAILY Rx Instructions: Apply to right shoulder topically in the morning cholecalciferol (vitamin D3) 25 mcg (1,000 unit) capsule 25 mcg PO DAILY ondansetron HCl 4 mg tablet 4 mg PO Q4H PRN (Reason: Nausea And Vomiting) sennosides [Senokot] 8.6 mg tablet 17.2 mg PO BID (DME) Wheelchair (Manual) Device See Rx Instructions .Route Qty: 1 0RF Rx Instructions: length of need 99 months morphine concentrate 100 mg/5 mL (20 mg/mL) solution 10 mg PO Q1H PRN (Reason: SOB/Pain) tramadol 50 mg Tablet 50 mg PO Q8H PRN (Reason: Severe Pain (Scale Score 7-10)) Prolia 60 mg/mL Syringe 60 mg subcut UD Rx Instructions: Every 6 months Held clopidogrel 75 mg tablet 75 mg PO HS Qty: 90 3RF Hold Instructions: Resume on 05/06/24. until off rifampin - on aspirin 81mg instead atorvastatin 10 mg tablet 10 mg PO 3XWK Hold Instructions: Resume on 04/20/24. while on daptomycin Rx Instructions: MON, WED, & FRI Discontinued baclofen 10 mg tablet 10 mg PO DAILY PRN (Reason: spasms) Qty: 90 3RF Rx Instructions: last filled 11/27/22 celecoxib 200 mg capsule 200 mg PO QAM Qty: 90 3RF enoxaparin [Lovenox] 30 mg/0.3 mL syringe 30 mg subcut BID sodium chloride 1 gram Tablet 2,000 mg PO BID Discharge Orders: Discharge Order (Routine); Ordered 03/23/24 Ordered By: Johanny Elmore Admission Data Admit Date/Time: 03/07/24 01:38 Attending Provider: Candida Wolfe Admit Provider: Lupillo Trinh Primary Care Provider: Aaron Bowers Other Providers: Tessa Qureshi; Jamil Townsend; Giacomo Putnam; Jeffrey Johnson; Alondra Clark; Violeta Belcher; Adal Pantoja; Geoffrey Archibald; Horace,[facility] Other Interventions: Discharge Summary Assessment (RN) Last Done: 03/23/24 10:32 Hospital Stay Data Consultations 03/06/24 23:54 ED Decision to Admit Stat 03/07/24 05:12 Consult Hematology Routine Consult Orthopedic Spine Surgery Routine Consult Orthopedic Surgery Routine 03/08/24 11:37 Consult Gastroenterology Routine Consult Infectious Diseases Routine 03/08/24 13:42 Consult Pulmonology Routine 03/10/24 13:27 Consult Pain Management Routine 03/14/24 15:53 Consult Palliative Care Routine 03/15/24 09:24 Consult Orthopedic Spine Surgery Routine 03/21/24 16:45 Consult Case Management Ambulatory ONCE Diagnostic Imagining Performed Lumbar Spine CT 03/06/24 19:06 Exam(s): CT L SPINE With Contrast IV Amt: 90 ml optiray 320 EXAM: CT Lumbar Spine With Intravenous Contrast CLINICAL HISTORY: Reason for exam: Trauma. TECHNIQUE: Axial computed tomography images of the lumbar spine with intravenous contrast. CTDI is 16 mGy and DLP is 717 mGy-cm. Automated exposure control was utilized for the study. A dose lowering technique was utilized adhering to the principles of ALARA. CONTRAST: Patient received 90 ml optiray 320 of IV contrast COMPARISON: None FINDINGS: Image quality is hampered by motion and metallic beam hardening artifacts. Vertebrae: Postsurgical spine/posterior interbody fusion instrumentation from T11-S1 with bilateral pedicle screws and interconnecting rods. Osteoporosis. Possible L4 and L5 vertebral fractures. Moderate dextroscoliosis. Exaggerated lumbar lordosis. There is diastasis mild/moderate widening of the right SI joint. Cannot exclude subtle fracture of the left sacral ala. Discs/spinal canal/neural foramina: Multilevel moderately advanced degenerative spondylosis. Soft tissues: Soft tissue edema/anasarca. Other findings: . Bilateral pleural effusions. IMPRESSION: Limited exam. Postsurgical thoracolumbosacral spine. Osteoporosis. Possible L4 and L5 vertebral fractures. Suspect subtle fracture of the left sacral ala. Moderate dextroscoliosis. Exaggerated lumbar lordosis. Multilevel moderately advanced degenerative spondylosis. Electronically signed by: Shanti Carrillo MD, DABR 03/07/24 00:10 AM Abdomen/Pelvis CT 03/06/24 19:07 Exam(s): CT ABDOMEN + PELVIS With Contrast IV Amt: 90 ml optiray 320 EXAM: CT Abdomen and Pelvis With Intravenous Contrast CLINICAL HISTORY: Reason for exam: Trauma. TECHNIQUE: Axial computed tomography images of the abdomen and pelvis with intravenous contrast. CTDI is 26.96 mGy and DLP is 691.25 mGy-cm. Automated exposure control was utilized for the study. A dose lowering technique was utilized adhering to the principles of ALARA. CONTRAST: Patient received 90 ml optiray 320 of IV contrast COMPARISON: None. FINDINGS: A large size electronic battery pack/metallic Device over the mid ventral abdominal wall. Patient's right upper left over the mid/lower abdomen. Diagnostic sensitivity of the exam is markedly hampered/reduced by motion and beam hardening artifacts. Lung bases: Concurrently performed CT chest is reported separately. ABDOMEN: Liver: Unremarkable. Mildly dilated intrahepatic bile ducts. Gallbladder and bile ducts: Unremarkable. No calcified stones. No ductal dilation. Pancreas: Unremarkable as visible.. Spleen: No splenomegaly. Adrenals: Unremarkable. No mass. Kidneys and ureters: No discernible solid mass. No hydronephrosis. Stomach and bowel: A moderately large size hiatal hernia. There is likely mucosal thickening of the fluid/gas filled normal caliber small bowel (series 1700 image 36). Gas/stool filled mild/moderately distended large bowel. There is irregularly lobulated abnormal appearing wall thickening of a moderately distended rectum, suspicious of malignancy (series 17 image 246, series 1700 image 45). PELVIS: Appendix: Not visualized. No obvious acute findings in the region. Bladder: Uniform mild bladder wall thickness. No mass. Reproductive: Likely a lobulated anteverted atrophic uterus present (series 1701, image 62). ABDOMEN and PELVIS: Intraperitoneal space: Unremarkable. No free air. No significant fluid collection. Bones/joints: Diffuse osseous demineralization. Postsurgical thoracolumbosacral spine with posterior fusion instrumentation. Multilevel degenerative spondylosis. Right proximal femur orthopedic instrumentation.. Hip osteoarthrosis. Soft tissues: Lower abdominal/pelvic wall edema/anasarca. Vasculature: Diffuse calcified atherosclerosis of the aortoiliac vasculature and branch vessels. No abdominal aortic aneurysm. Lymph nodes: No enlarged lymph nodes.. IMPRESSION: A markedly limited/nondiagnostic exam. A moderately large size hiatal hernia. Possibly mucosal thickening of fluid/gas filled normal caliber small bowel loops/enteritis. Clinical correlation advised Gas/stool filled mild/moderately distended large bowel loops. Irregular lobulations/abnormal wall thickening of a moderately distended rectum, suspicious of malignancy. Recommend follow-up. Additional findings as described above. Electronically signed by: Shanti Carrillo MD, DUSTIN 03/06/24 22:[address] 03/06/24 19:07 Exam(s): CT C SPINE EXAM: CT Cervical Spine Without Intravenous Contrast CLINICAL HISTORY: Reason for exam: Trauma. TECHNIQUE: Axial computed tomography images of the cervical spine without intravenous contrast. CTDI is 16.98 mGy and DLP is 717.98 mGy-cm. Automated exposure control was utilized for the study. A dose lowering technique was utilized adhering to the principles of ALARA. COMPARISON: CT cervical spine: 11/22/2023 FINDINGS: Vertebrae: C4 vertebral 3.5 mm of anterolisthesis. C7 vertebral 3 mm anterolisthesis. No acute fracture. Discs/spinal canal/neural foramina: Redemonstrates advanced multilevel degenerative disc/endplate and posterior elements spondylosis with variable degrees of neuroforaminal and central canal stenosis. Soft tissues: Unremarkable. Other findings: Pulmonary biapical pleural parenchymal scarring. . IMPRESSION: No significant abnormalities post trauma. . Electronically signed by: Shanti Carrillo MD, DABR 03/06/24 21:[address] 03/06/24 19:07 Exam(s): CT CHEST With Contrast IV Amt: 90 ml optiray 320 EXAM: CT Chest With Intravenous Contrast CLINICAL HISTORY: Reason for exam: Trauma. TECHNIQUE: Axial computed tomography images of the chest with intravenous contrast. CTDI is 11 mGy and DLP is 311 mGy-cm. Automated exposure control was utilized for the study. A dose lowering technique was utilized adhering to the principles of ALARA. CONTRAST: Patient received 90 ml optiray 320 of IV contrast COMPARISON: CT chest: 11/22/2023 FINDINGS: Motion-induced image degradation limits anatomical details. Lungs: Central airways are patent. Bilateral diffuse bronchial wall thickening. Bilateral lower lung lobes posteriorly consolidation/atelectasis and surrounding interstitial opacities. Pleural space: Moderate volume bilateral pleural effusions RT>LT. No pneumothorax. Heart: Borderland/mild cardiomegaly. Thickly calcified mitral valve annulus. No significant pericardial effusion. No significant coronary artery calcifications. Bones/joints: Osteopenia. A T8 vertebral superior endplate mild/moderate chronic compression fracture . No acute fracture. No dislocation. Degenerative changes of the spine. Increased thoracic kyphosis. Postsurgical thoracolumbar spine. A nondisplaced old fracture of the right third rib posteriorly. Soft tissues: Unremarkable. Vasculature: Unremarkable. No thoracic aortic aneurysm. Lymph nodes: Multiple calcified left hilar lymph nodes in the left lower lung lobe calcified nodules/granulomas. No lymphadenopathy by CT size criteria... IMPRESSION: Moderate volume bilateral new pleural effusions with overlying consolidation/atelectasis and corresponding interstitial infiltrates RT>LT Mild cardiomegaly. A nondisplaced old fracture of the right third rib posteriorly. A T8 vertebral superior endplate mild/moderate chronic compression/fracture seen similar to the prior exam. Electronically signed by: Shanti Carrillo MD, DUSTIN 03/06/24 23:[address] 03/06/24 19:07 Exam(s): CT FACIAL Without Contrast EXAM: CT Maxillofacial Without Intravenous Contrast CLINICAL HISTORY: Reason for exam: Trauma. TECHNIQUE: Axial computed tomography images of the face without intravenous contrast. CTDI is 26.96 mGy and DLP is 291.25 mGy-cm. Automated exposure control was utilized for the study. A dose lowering technique was utilized adhering to the principles of ALARA. COMPARISON: None. FINDINGS: Motion-induced image degradation. Bones/joints: There is a right nasal bone fracture with angulation. No other acute facial bone fracture seen. Bilateral TMJ osteoarthritis. Soft tissues: Unremarkable. Orbits: Unremarkable. Sinuses: Unremarkable. No air-fluid levels.. IMPRESSION: Right nasal bone fracture. Otherwise no significant abnormalities post trauma. . Electronically signed by: Shanti Carrillo MD, DABR 03/06/24 23:[address] 03/06/24 19:07 Exam(s): CT HEAD Without Contrast EXAM: CT Head Without Intravenous Contrast CLINICAL HISTORY: Reason for exam: trauma. TECHNIQUE: Axial computed tomography images of the head/brain without intravenous contrast. CTDI is 65.68 mGy and DLP is 1098.96 mGy-cm. Automated exposure control was utilized for the study. A dose lowering technique was utilized adhering to the principles of ALARA. COMPARISON: CT brain: 11/22/2023 FINDINGS: Extensive motion/beam hardening artifact limits the sensitivity of the exam. Brain: Redemonstrates a large size encephalomalacia involving left chávez radiata with exvacuo-dilatation of the left lateral ventricle/ventriculomegaly. No acute intracranial hemorrhage or midline shift of structures. No abnormal extra-axial fluid collections. Moderate cerebral atrophy with widening of the extra-axial spaces. Basilar cisterns are patent.. Bones/joints: Unremarkable. No acute fracture. Soft tissues: Unremarkable. Sinuses: No acute sinusitis. Mastoid air cells: Unremarkable as visualized. No mastoid effusion.. IMPRESSION: No conclusive evidence of acute intracranial abnormality. . Electronically signed by: Shanti Carrillo MD, DABR 03/06/24 22:[address] 03/06/24 19:07 Exam(s): CT T SPINE IV Amt: 90 ml optiray 320 EXAM: CT Thoracic Spine With Intravenous Contrast CLINICAL HISTORY: Reason for exam: trauma. TECHNIQUE: Axial computed tomography images of the thoracic spine with intravenous contrast. CTDI is 16.98 mGy and DLP is 717 mGy-cm. Automated exposure control was utilized for the study. A dose lowering technique was utilized adhering to the principles of ALARA. CONTRAST: Patient received 90 ml optiray 320 of IV contrast COMPARISON: None. FINDINGS: Diagnostic sensitivity of the exam is reduced by motion artifact. Vertebrae: Diffuse osseous demineralization. T8 vertebral superior endplate anterior wedge compression of indeterminant age (series 1801, image 33).. Otherwise no thoracic vertebral acute fracture is seen. No segmental malalignment. Increased thoracic kyphosis. Posteriorly nondisplaced nonunited fracture of the right second rib (series 302 image 13). Discs/spinal canal/neural foramina: No acute findings. No spinal canal stenosis. Soft tissues: Unremarkable. Other findings: Demonstrates moderate volume bilateral pleural effusions with overlying consolidation/atelectasis and surrounding infiltrates in the lower lobes. Cardiomegaly. Multiple calcified left hilar lymph nodes and left lower lobe calcified nodules/granulomas. IMPRESSION: Suboptimally evaluated due to motion artifact. A T8 vertebral superior endplate anterior wedge compression/fracture of indeterminant age. Otherwise no significant abnormalities post trauma. . Electronically signed by: Shanti Carrillo MD, DABSherron 03/06/24 22:48 PM Tibia/Fibula X-Ray 03/06/24 19:08 Exam(s): XR RIGHT TIB/FIB, 2 views EXAM: XR Right Tibia and Fibula, 2 Views CLINICAL HISTORY: Reason for exam: Trauma. TECHNIQUE: Frontal and lateral views of the right tibia and fibula. COMPARISON: None. FINDINGS: Bones/joints: Diffuse osseous demineralization. Intramedullary anaid/nail fixation of the visualized right femur. There is a minimally displaced intra-articular fracture of the lateral corner of the tibial plateau. Laterally mild soft tissue swelling of the right knee. Tricompartmental moderate right knee osteoarthrosis. Suspect laterally a subtle nondisplaced cortical fracture of the lateral malleolus. No dislocation. Soft tissues: Soft tissue swelling of the ankle more laterally. No radiopaque foreign body.. IMPRESSION: Osteopenia. A mildly displaced intra-articular fracture of the lateral corner of the right proximal tibia. Likely a subtle nondisplaced cortical fracture laterally of the lateral malleolus. Periarticular soft tissue swelling more laterally. Tricompartmental right knee osteoarthrosis. . Electronically signed by: Shanti Carrillo MD, DABR 03/06/24 23:56 PM Ankle X-Ray 03/07/24 07:19 EXAM: XR ankle RT min 3V routine CLINICAL HISTORY: RIGHT LOWER LEG TRAUMA RIGHT KNEE AND ANKLE PAIN. TECHNIQUE: X-ray images of the right ankle were obtained in anteroposterior (AP), lateral, and mortise projections. COMPARISON: X-ray dated 11/03/2023. FINDINGS: Bone Structure: Status post back slab/plaster cast limiting fine details. Reduced mineralization of the imaged bony structures seen, suggests osteopenia with prominent trabeculae. Bone normal aligned. No evidence of fracture or dislocation. No osseous lesions or abnormalities were identified. Generazlied osteopenia. Joint Spaces: Joint spaces are normal. No evidence of joint effusion or subluxation. Soft Tissues: Soft tissues appear normal and unremarkable. No soft tissue swelling, calcifications, or foreign bodies noted. Additional Findings: Slight spurring of the hindfoot bone seen suggest insignificant/early degenerative changes IMPRESSION: 1. Overlying cast is limiting fine bony details. No evidence of acute fracture, dislocation, or significant soft tissue abnormalities. 2. Osteopenia. Disclaimer: A subtle bone abnormality or occult fracture may not be readily apparent on X-rays, thus clinical correlation and further imaging including follow-up 3D CT, MRI, or follow-up X-rays are advised as needed. Electronically signed by Misael Shin 03-07-2024 08:54 AM Knee X-Ray 03/07/24 07:19 EXAM: XR knee RT 1 or 2V routine CLINICAL HISTORY: RIGHT LOWER LEG TRAUMA RIGHT KNEE AND ANKLE PAIN. TECHNIQUE: X-ray images of the right knee were obtained in 2 views: Anteroposterior (AP) and lateral projections. COMPARISON: X-ray dated 09/28/2023. FINDINGS: Status post back slab/ plaster cast. Visible distal femur diaphysis shows instrumentation from earlier surgery, no periprosthetic lucencies seen to suggest loosening or infection. Bone Structure: Reduced mineralization of the imaged bones seen suggests osteopenia. Bone structure is normal and well-aligned. No evidence of acute fractures or dislocations. No osseous lesions or abnormalities were identified. Joint Spaces: Joint spaces are narrowed in medial and lateral tibiofemoral and patellofemoral compartments with sub articular sclerosis. Articular Surfaces: Intact. Patella: Patella is normal in position and alignment. No evidence of patellar dislocation or subluxation. Soft Tissues: Periarticular soft tissues appear normal and unremarkable. No soft tissue swelling, calcifications, or foreign bodies noted. IMPRESSION: 1. No evidence of acute fractures, or dislocations. 2. Tricompartmental degenerative changes. 3. Osteopenia. 4. Visible distal femur diaphysis shows instrumentation from earlier surgery, no periprosthetic lucencies seen to suggest loosening or infection. 5. Current radiograph remains interval stable since the prior X-ray of 09/28/2023. Disclaimer: A subtle bone abnormality or fracture may not be readily apparent on X-rays, thus clinical correlation and further imaging including follow-up CT, MRI, or follow-up X-rays are advised as needed. Electronically signed by Misael Shin 03-07-2024 08:44 AM Chest X-Ray 03/08/24 11:19 XR chest 1V portable CLINICAL HISTORY: recheck effusions COMPARISON STUDY: Chest CT March 06, 2024. FINDINGS: This exam is mildly compromised given difficulty positioning. Postoperative findings within the spine are noted. Old right-sided rib fractures are noted as well as old fractures of the right clavicle and scapula. There is no pneumothorax. Sltqx-lr-[id number] bilateral pleural effusions with associated bibasilar opacities are similar to prior CT. Pulmonary edema has mildly progressed. Cardiac mediastinal fluid is stable. IMPRESSION: 1. Nvkiy-gh-rohucfok bilateral pleural effusions with associated bibasilar opacities, similar to prior CT. 2. Progression of pulmonary edema. ACT 112: Negative or not required by law. Electronically signed by: Conner Anand M.D. 03/08/2024 12:07 PM Chest/Abdomen X-ray 03/09/24 13:40 PA CHEST RADIOGRAPH AND UPRIGHT AND SUPINE AP RADIOGRAPHS OF THE ABDOMEN CLINICAL HISTORY: Colonic distention PAIN PUMP POSITION FOR MRI COMPARISON STUDY: Chest radiograph March 08, 2024. CT of the chest, abdomen and pelvis March 06, 2024. FINDINGS: There is no pneumothorax. Pulmonary edema has progressed. Moderate bilateral pleural effusions with associated bibasilar opacities have increased. Cardiomegaly. Postoperative findings within the spine are noted. There is a right femoral internal fixation. Orientation of the left lower quadrant pain pump is normal. The entirety of the catheter is not well visualized on this exam . No contraindication to MRI within the chest, abdomen or pelvis. There is no free air. There is no radiographic evidence for a bowel obstruction. IMPRESSION: 1. Normal orientation of the left lower quadrant pain pump. No contraindication to MRI within the chest, abdomen or pelvis. 2. Progression of pulmonary edema with moderate bilateral pleural effusions and associated bibasilar opacities. 3. No free air or evidence for a bowel obstruction. ACT 112: Negative or not required by law. Electronically signed by: Conner Anand M.D. 03/09/2024 8:47 AM Lumbar Spine MRI 03/10/24 06:51 MR lumbar spine wo/w con CLINICAL HISTORY: bacteremia unknown source, eval hardware/pump infec TECHNIQUE: 3 plane localizer images, sagittal T2, sagittal T1, sagittal STIR, axial T1, axial T2 along with postcontrast axial T1 and sagittal T1 fat- saturated sequences were obtained of the lumbar spine, before and after intravenous administration of 12 mL of MultiHance. Comparison: Comparison is made to CT lumbar spine 02/05/2024 FINDINGS: There is extensive susceptibility artifact due to posterior fixation hardware and the exam is limited by patient motion. Within these limits, there is no abnormal enhancement or edema. The spinal ligaments are intact, without evidence of disruption or abnormal signal intensity. The spinal cord is normal in signal intensity and there is no evidence of cord contusion. There is no evidence of an extradural, intradural, extramedullary or intramedullary lesion. Visualized soft tissues are normal. IMPRESSION: Limited exam without evidence of drainable fluid collection or bony edema/enhancement to suggest osteomyelitis. No definite findings of acute fracture as suggested by prior exam. ACT 112: Negative or not required by law. Electronically signed by: Dex Moon M.D. 03/10/2024 1:56 PM Thoracic Spine MRI 03/10/24 06:52 MRI OF THE THORACIC SPINE WITH AND WITHOUT CONTRAST CLINICAL HISTORY: bacteremia unknown source, eval hardware/pump infection COMPARISON: Thoracic spine CT March 06, 2024. Chest CT November 22, 2023. Thoracic spine radiographs June 26, 2018. TECHNIQUE: Utilizing a 1.5 Pamela magnet and dedicated coil, multiplanar, multiecho imaging of the thoracic spine was performed before and after the intravenous administration of 5 cc. FINDINGS: This exam is moderately compromised given difficulty positioning and artifact from the spinal hardware. There are postoperative findings consistent with T11-S1 decompression and fusion. Bilateral pleural effusions are better depicted on prior chest CT. There are associated lower lobe airspace opacities. Please note that the lumbar spine MRI will be reported separately. Lucency adjacent to the bilateral T11 pedicle screws is depicted on spine CT March 06, 2021. The tip of the right screw slightly extends into the disc space. There is increased fluid signal within the T10-T11 disc space. There is paravertebral edema and enhancement. There is increased T2 signal and diminished T1 signal within the T10 and T11 vertebral bodies with erosion of the inferior endplate of T10 and superior endplate of T11. This erosion is new since CT of November 22, 2023. There is an associated small T2 hyperintense focus within the anterior epidural space that measures 0.9 x 0.8 x 0.2 cm. This enhances. No additional epidural abnormalities are identified. Thoracic cord signal suboptimally assessed on this exam but likely normal. This results in mild central canal narrowing. There is no severe stenosis within the thoracic spine. Several old mild thoracic spine compression fractures are present. No additional sites of inflammation are identified within the thoracic spine. IMPRESSION: 1. Status post T11-S1 decompression and fusion. Exam compromised given difficulty positioning and artifact from the surgical hardware. Please note that the lumbar spine MRI will be reported separately. 2. Lucency adjacent to the T11 pedicle screws, as shown on CT. Increased fluid signal within T10-T11 disc space with abnormal marrow signal within the T10 and T11 vertebral bodies with associated endplate erosive changes which are new since CT of November 22, 2023. Associated paravertebral edema and enhancement. Given the clinical history, the findings are suspicious for T10-T11 discitis wit h associated osteomyelitis and loosening of the T11 pedicle screws. Less likely, these findings could be aseptic and related to loosening/developing pseudarthrosis. An infectious process is the diagnosis of exclusion. Small associated abnormality within the anterior epidural space results in mild central canal stenosis. This may reflect a small developing epidural abscess or phlegmon. No severe central canal stenosis within the thoracic spine. 3. Bilateral pleural effusions with associated lower lobe airspace opacities, better depicted on prior CT. 4. Several old mild thoracic spine compression fractures. ACT 112: Negative or not required by law. Electronically signed by: Conner Anand M.D. 03/10/2024 2:26 PM Chest X-Ray 03/12/24 08:00 XR chest 2V PA/lateral CLINICAL HISTORY: recheck effusions COMPARISON STUDY: Chest CT March 06, 2024. Chest radiograph March 09, 2024. FINDINGS: Postoperative findings within the spine are partially imaged. Old post traumatic findings within the right hemithorax are incidentally noted. There is no pneumothorax. Qjeoh-hy-rcugbgmf bilateral pleural effusions are unchanged. There is persistent pulmonary edema with bibasilar opacities. Cardiomediastinal silhouette is stable. IMPRESSION: 1. No change in small to moderate bilateral pleural effusions with associated bibasilar opacities. 2. Persistent pulmonary edema. ACT 112: Negative or not required by law. Electronically signed by: Conner Anand M.D. 03/12/2024 11:36 AM Pending Results Patient Have Any Pending Studies at Discharge: No Discharge Instructions Given to Patient (Per Discharging Provider) Ms. Tamayo, you were hospitalized after a fall that resulted in a knee contusion and ankle sprain,. The cause of your fall was likely due to a bacterial infection that was found in your blood, we are unsure of the definitive source but we suspected your spine. You will remain on IV antibiotics for 4 more weeks for total completion of 6 weeks and then you will have to be on lifelong suppressive therapy. You will need to follow-up with your spine surgeon at [facility] for further recommendations regarding your spine. You were also found to have an abnormal finding of your colon on CT scan, there is a concern for colon cancer. You should have outpatient GI follow-up for biopsy for further investigation. Changes/Recommendations: - plavix held while on Rifampin. Baby aspirin 81mg started for stroke prevention - Salt tabs decreased to 1mg BID - Statin held while on daptomycin - started lasix 20mg daily for pleural effusion - potassium supplementaion increased to 20meq - started B12 supplementation - Decreasing dose with pain pump to last until damion until 05/06 - Follow up with local infectious disease - I have placed a referral and they will contact you - Follow up with ortho spine Doctor at [facility]: - On a dental soft/bite-size diet - Aphasic but can respond to yes/no questions - ultrasound-guided line placed 03/14 - recommendations from ID below: , patient will be referred to Dr. Main for local ID follow up -Continue Daptomycin 8 mg/kg IV daily ( adj bw); Hold atorvastatin while on Daptomycin if possible . CK pending ( 03/09/24- 04/20/24) , then start suppressive therapy with doxycycline 100 mg po q 12 hrs ( 04/21/24) for at least 6 months but could be longer -Added Rifampin 300 mg PO q12h for synergy for MSSA bacteremia and possible spinal infection in setting or retained hardware . Discussed with ID pharmacist. Will need to monitor closely for DDI. ( 03/17/24- 04/20/24). If continues to tolerate and no drug drug interactions ( DDI) , then continue in combination with doxycycline suppression from 04/21 for at least 6 months -Possible DDI in the setting of RIFAMPIN include DECREASE affect of atorvastatin ( held while on Dapto); INCREASE affect of clopidogrel which she is on at home. Should be avoided due to bleeding risk. Would avoid resuming on discharge. May need to consider an alternative antiplatelet therapy. Also look for drug drug interactions with pain medications including: morphine, tramadol, colecoxib. Once rifampin is discontinued, pain medication effects may be INCREASED which may not be immediate. There is increased risk of respiratory depression, seizure, serotonin syndrome. If pain meds are increased or started while on rifampin, would need to decrease them back when rifampin is discontinued. Also expect red-orange fluid, tears, urine, sweat on therapy -Follow up flex sig chris in setting of CT imaging, Step bovis in ucx and multiple fractures--> r/o malignancy -Weekly cbc with diff, bmp, CPK on IV antibiotics - Monitor DDI as per above closely . Stop of rifampin may increase effects of pain meds she is currently receiving. -Set up care with local ID , She will need close monitoring as per above. -Repeat Blood culture and repeat MRI spine approximately 1-2 week post completion of IV abx ( week of 04/25 ) - has baclofen pump present, was due for refill 03/16 but has not been able to be refilled because of infection, follows with [facility] and they have been slowly decreasing her dose so he does not run out. Appointment scheduled 05/06. P.o. as needed baclofen has been increased to every 4 hours as needed - Salt tabs decreased - check BMP in one week - Check CBC in one week - she had thrombocytosis, treated infection and received venofer x3 and mainitains on PO iron. If thrombocytosis is worsening recommend heme/onc f/u. Saw Dr. Qureshi during hospitalization Supervising Physician Co-Signing Physician Notes PA Supervision Note: I did not personally see or examine the patient today, but I verified all gerard points of DION Elmore's assessment and plan with the following exceptions/additions: None Total Time Total Time Spent Total Time Spent (In Minutes): Time spent day of discharge 50 minutes including direct patient care, medication reconciliation, documentation, review of labs and images, and coordination of care. Coding Level of Care Code 72709 INP/OBS DISCH >30 MIN Diagnoses Bacteremia due to Staphylococcus R78.81; B95.8 Parapneumonic effusion J18.9; J91.8 Acute UTI N39.0 Lateral malleolar fracture S82.61XA Encounter type: initial encounter Fracture alignment: displaced Fracture type: closed Laterality: right Fracture of proximal end of tibia S82.101A Encounter type: initial encounter Fracture morphology: unspecified fracture morphology Fracture type: closed Laterality: right Thrombocytosis D75.839 Frequent falls R29.6
[2024-03-23] MEDS ORDERED: SODIUM CHLORIDE 1 GM TABLET PO SCH (21:00)
[2024-03-24] MEDS ORDERED: ASPIRIN 81 MG ECTAB PO SCH (09:00)
== END 2024-03-23 11:53 | DRG 871 ==
LOC: ED 18:40 → SUATTDRO 03-07 01:38 → EDINP 03-07 01:38 → 2E 03-07 03:09 → 3N 03-12 21:10
DX: E83.42 Hypomagnesemia; E53.8 Deficiency of other specified B group vitamins; Z87.891 Personal history of nicotine dependence; R29.6 Repeated falls; Y92.121 Bathroom in nursing home as the place of occurrence of the external cause; Z79.899 Other long term (current) drug therapy; W19.XXXA Unspecified fall, initial encounter; S42.101D Fracture of unspecified part of scapula, right shoulder, subsequent encounter for fracture with routine healing; J18.9 Pneumonia, unspecified organism; B95.61 Methicillin susceptible Staphylococcus aureus infection as the cause of diseases classified elsewhere; D50.9 Iron deficiency anemia, unspecified; S93.401A Sprain of unspecified ligament of right ankle, initial encounter; I69.351 Hemiplegia and hemiparesis following cerebral infarction affecting right dominant side; K44.9 Diaphragmatic hernia without obstruction or gangrene; S22.060D Wedge compression fracture of T7-T8 vertebra, subsequent encounter for fracture with routine healing; N39.0 Urinary tract infection, site not specified; T84.498A Other mechanical complication of other internal orthopedic devices, implants and grafts, initial encounter; R78.81 Bacteremia; Z96.89 Presence of other specified functional implants; Z79.02 Long term (current) use of antithrombotics/antiplatelets; Z88.0 Allergy status to penicillin; M46.44 Discitis, unspecified, thoracic region; E87.6 Hypokalemia; S22.049D Unspecified fracture of fourth thoracic vertebra, subsequent encounter for fracture with routine healing; S80.01XA Contusion of right knee, initial encounter; I11.0 Hypertensive heart disease with heart failure; S02.2XXD Fracture of nasal bones, subsequent encounter for fracture with routine healing; Z51.5 Encounter for palliative care; I50.31 Acute diastolic (congestive) heart failure; M96.1 Postlaminectomy syndrome, not elsewhere classified; Z88.1 Allergy status to other antibiotic agents; Z79.01 Long term (current) use of anticoagulants; D75.839 Thrombocytosis, unspecified; S32.10XD Unspecified fracture of sacrum, subsequent encounter for fracture with routine healing; S22.059D Unspecified fracture of T5-T6 vertebra, subsequent encounter for fracture with routine healing; I69.320 Aphasia following cerebral infarction; Z87.820 Personal history of traumatic brain injury; Z66 Do not resuscitate; R93.3 Abnormal findings on diagnostic imaging of other parts of digestive tract; S22.41XD Multiple fractures of ribs, right side, subsequent encounter for fracture with routine healing